=== PATIENT | female | born 1995 | race Caucasian/White ===

== ENCOUNTER 2023-07-03 10:53 | Outpatient (OUT) | payer OTHER, SELFPAY ==
[2023-07-03 11:50] LABS: HCG Quantitative 632 mIU/mL
== END 2023-07-03 10:54 | disposition home or self-care (01) ==
PROVIDERS: Visit Provider Obstetrics & Gynecology
DX: N92.6 Irregular menstruation, unspecified (principal)
CPT/HCPCS: 36415; 84702

== ENCOUNTER 2023-07-05 11:01 | Outpatient (OUT) | payer OTHER, SELFPAY ==
[2023-07-05 12:24] LABS: HCG Quantitative 1725 mIU/mL
== END 2023-07-05 11:02 | disposition home or self-care (01) ==
LOC: LAB 11:01
PROVIDERS: Visit Provider Obstetrics & Gynecology
DX: N92.6 Irregular menstruation, unspecified (principal)
CPT/HCPCS: 36415; 84702

== ENCOUNTER 2023-07-31 13:58 | Outpatient (OUT) | payer OTHER, SELFPAY ==
--- NOTE | 2023-07-31 14:01 | US_ITS ---
[address] [address] Patient Name: ADRY LEVY MRN: [id number] date: 1995 Sex: F Assigned Patient Location: [facility] Current Patient Location: [facility] Accession/Order Number: [id number] Exam Date: 07/31/2023 14:01 Report Date: 07/31/2023 14:58 At the request of: RICKY PHAM Procedure: US OB transvaginal EXAMINATION: US OB transvaginal HISTORY: MISSED MENSES COMPARISON: No relevant comparison available. FINDINGS: Transvaginal images Clark intrauterine gestation Gestational sac: 3.3 cm, 9 weeks CRL: 2.07 cm, 8 weeks 5 days Yolk sac: 4.2 mm Heart rate: 173 beats minute Cervix: Closed, 5.5 cm Uterus is normal, anteverted, anteflexed The ovaries are normal. Right corpus luteal cyst Clinical age: 8 weeks 3 days Clinical YE: 03/08/2024 Ultrasound age: 8 weeks 5 days Ultrasound YE: 02/29/2024 US/US OB transvaginal IMPRESSION: Viable clark intrauterine gestation measuring 8 weeks 5 days Electronically authenticated by: EULOGIO BARCLAY Date: 07/31/2023 14:58
== END 2023-07-31 13:59 | disposition home or self-care (01) ==
LOC: NOMS 13:58
PROVIDERS: Visit Provider Obstetrics & Gynecology
DX: Z34.91 Encounter for supervision of normal pregnancy, unspecified, first trimester (principal); Z3A.08 8 weeks gestation of pregnancy; N92.6 Irregular menstruation, unspecified
CPT/HCPCS: 76817

== ENCOUNTER 2023-08-21 10:58 | Outpatient (OUT) | payer OTHER, SELFPAY ==
[2023-08-21 11:33] LABS: Basophils Absolute Auto 0.1 10^3/uL (0.0-0.1); Basophils Percent Auto 0.9 % (0.2-2.0); Eosinophils Absolute Auto 0.2 10^3/uL (0.0-0.7); Eosinophils Percent Auto 1.9 % (0.9-7.0); Hematocrit 38.2 % (36.0-48.0); Hemoglobin 13.1 g/dL (12.0-16.0); Immature Granulocytes Abs Auto 0.07 10^3/uL (0.00-0.03); Immature Granulocytes Pct Auto 0.7 % (0.0-0.5); Lymphocytes Absolute Auto 1.8 10^3/uL (1.2-3.8); Lymphocytes Percent Auto 19.4 % (20.5-60.0); Mean Corpuscular HGB Conc 34.3 g/dL (29.9-35.2); Mean Corpuscular Hemoglobin 29.5 pg (26.7-34.0); Mean Platelet Volume 10.5 fL (9.5-13.5); Monocytes Absolute Auto 0.7 10^3/uL (0.3-0.8); Monocytes Percent Auto 7.8 % (1.7-12.0); Neutrophils Absolute Auto 6.5 10^3/uL (1.4-6.5); Neutrophils Percent Auto 69.3 % (43.0-75.0); Platelet Count 194 10^3/uL (150-450); Red Blood Count 4.44 10^6/uL (4.20-5.40); Red Cell Distribution Width 12.6 % (11.0-15.0); White Blood Count 9.4 10^3/uL (4.0-11.0)
[2023-08-21 11:45] LABS: Estimated Average Glucose 100 mg/dL; Glycohemoglobin A1C 5.1 % (4.5-6.2)
[2023-08-21 14:17] LABS: Thyroid Stimulating Hormone 2.881 uIU/mL (0.358-3.740)
[2023-08-22 06:10] LABS: HBsAg Screen Negative (Negative); HCV Ab Non Reactive (Non Reactive); HIV Ab/p24 Ag Screen Non Reactive (Non Reactive); Rubella Antibodies, IgG 2.07 index (Immune >0.99)
[2023-08-22 11:10] LABS: Rapid Plasma Reagin, Quant Non Reactive titer (NonRea<1:1)
== END 2023-08-21 10:59 | disposition home or self-care (01) ==
LOC: LAB 11:00
PROVIDERS: Visit Provider Obstetrics & Gynecology
DX: N92.6 Irregular menstruation, unspecified (principal); E07.9 Disorder of thyroid, unspecified
CPT/HCPCS: 36415; 83036; 84443; 85025; 86592; 86762; 86803; 86850; 86900; 86901; 87086; 87340; 87389

== ENCOUNTER 2023-09-30 19:22 | Outpatient (REF) | payer OTHER, SELFPAY ==
--- OUTSIDE RECORDS SUMMARY | 2023-09-30 19:28 | XMS_ITS | CCD ---
Author Organization [facility] Care Team Providers Care Delivery Analyst Name Role Phone Unavailable Unavailable Unavailable Herve Will MD Primary Care Provider Chepe Peraza MD Unavailable Herve Will MD Primary Care Unavail able Cristian DORADO, Jake Og Attending UnavailHerve Chiang MD Primary Care Unavail swathi Foster MD, Jake Og Attending Unavailfred Foster MD, Jake Og Attending UnavailHerve Chiang MD Primary Care Unavail able Herve Will MD Primary Care Provider Chepe Peraza MD Unavailable [phone] Herve Will MD Primary Care Provider HERVE WILL Attending Unavailable Chepe Peraza MD Unavailable DARRYN DOW Primary Care Unavailable DU PHILIP Referring Unavailable GEOVANNY PANCHAL Attending Unavailable RICKY PHAM Attending Unavailable LATRICE GLOVER Attending Unavailable DEONTEEMAKER HERVE J Primary Care Unavailable REGAN SCHAEFFER Referring Unavailable SHOEMAKER, HERVE J Primary Care Unavailable SELF, SELF Referring Unavailable BELLE JOSE Admitting Unavailable BELLE JOSE Attending Unavailable SELF, SELF Referring Unavailable EMILE ARMAS Attending Unavailable SHOEMAKER, HERVE J Primary Care Unavailable REGAN SCHAEFFER Attending Unavailable REGAN SCHAEFFER Referring Unavailable SHOEMAKER, HERVE J Primary Care Unavailable SHOEMAKER, HERVE J Primary Care Unavailable REGAN SCHAEFFER Referring Unavailable EMILE ARMAS Attending Unavailable EMILE ARMAS Attending Unavailable SELF, SELF Referring Unavailable SHOEMAKER HERVE J Primary Care Unavailable REGAN SCHAEFFER Referring Unavailable EMILE ARMAS Attending Unavailable HERVE WILL Primary Care Unavailable HERVE WILL Attending Unavailable HERVE WILL Referring Unavailable HERVE WILL Primary Care Unavailable Allergies Allergy Classification Reported Allergen(s) Allergy Type Date of Onset Reaction(s) Facility (11 sources) Amoxicillin; Translations: [amoxicillin] Drug Allergy 8 [facility] Work Phone: (5 sources) Clarithromycin; Translations: [clarithromycin] Drug Allergy 8 [facility] Work Phone: (11 sources) Clindamycin; Translations: [clindamycin] Drug Allergy 8 [facility] Work Phone: (11 sources) Doxycycline; Translations: [doxycycline] Drug Allergy 8 [facility] Work Phone: (6 sources) Clarithromycin Propensity to adverse reactions to drug 8 [facility] Work Phone: Medications Current Medications Medication Drug Class(es) Dates Sig (Normalized) Sig (Original) alpha-tocopherol acetate 30 unt / ascorbic acid 100 mg / beta carotene 1000 unt / calcium carbonate 200 mg / calcium pantothenate 7 mg / cholecalciferol 400 unt / docusate sodium 25 mg / ferrous fumarate 29 mg / folic acid 1 mg / niacinamide 15 mg / pyridoxine hydrochloride 20 mg / riboflavin 3 mg / thiamine 3 mg / vitamin b12 0.012 mg / zinc oxide 20 mg oral tablet (6 sources) Vitamin B12, Vitamin D, Vitamin C Start: 11-20-2022 take 1 tablet by mouth once daily Vit-DSS-Fe Fum-FA ( 19) tablet Take 1 tablet by mouth daily. 90 tablet 3 11/20/2022 Active ethinyl estradiol 0.035 mg / norgestimate 0.25 mg oral tablet (8 sources) Progestin, Estrogen take 1 tablet by mouth at bedtime norgestimate-ethinyl estradiol (Sprintec 28) 0.25-35 MG-MCG tablet Take 1 tablet by mouth at bedtime. Active lidocaine viscous 80 mL, diphenhydrAMINE (BENADRYL) 80 mL, alum/mag hydrox.-simethicone 80 mL mouthwash (8 sources) Start: 05-22-2021 take 15 mL transmucosal route every six hours as needed lidocaine viscous 80 mL, diphenhydrAMINE (BENADRYL) 80 mL, alum/mag hydrox.-simethicone 80 mL mouthwash Swish and swallow 15 mL every 6 hours as needed. 1 Bottle 05/22/2021 Active Start: 05-22-2021 take 15 mL transmuco ashia route every six hours as needed lidocaine viscous 80 mL, diphenhydrAMINE (BENADRYL) 80 mL, alum/mag hydrox.-simethicone 80 mL mouthwash Swish and swallow 15 mL every 6 hours as needed. 1 Bottle 0 05/22/2021 Active lidocaine viscous-Alum & Mag Icznrurve-Kbmxqh-gsfqkbqqueSMVTJ oral mouthwash (8 sources) Start: 05-22-2021 take 15 mL by mouth every six hours as needed lidocaine viscous-Alum & Mag Lltaxfliq-Pvygzv-mkulpiftwnYPSVY oral mouthwash Swish and swallow 15mL by mouth every 6 hours as needed. 240 mL 05/22/2021 Active Start: 05-22-2021 take 15 mL by mouth every six hours as needed lidocaine viscous-Alum & Mag Xyxmfkybj-Yhkpgh-azdwluupnzQQEMU oral mouthwash Swish and swallow 15mL by mouth every 6 hours as needed. 240 mL 0 05/22/2021 Active nystatin 680239 unt/ml oral suspension (8 sources) Polyene Antifungal Start: 05-16-2021 take 10 mL by mouth four times daily nystatin 313249 UNIT/ML oral suspension Swish and swallow 10 mL 4 times daily. 280 mL 05/16/2021 Active ondansetron 4 mg disintegrating oral tablet (8 sources) Serotonin-3 Receptor Antagonist Start: 05-10-2021 take 1 tablet by mouth every eight hours as needed ondansetron 4 MG Tab Dispersible tablet Dissolve 1 tablet by mouth every 8 hours as needed for Nausea / Vomiting. 15 tablet 05/10/2021 Active oxyCODONE hydrochloride 5 mg oral tablet (6 sources) Opioid Agonist Start: 05-22-2021 take 1 tablet by mouth every four hours as needed oxyCODONE 5 MG tablet Indications: Postoperative pain Take 1 tablet by mouth every 4 hours as needed for up to 7 days. 20 tablet 05/22/2021 Active Completed/Discontinued Medications Medication Drug Class(es) Dates Sig (Normalized) Sig (Original) Barium Sulfate (VARIBAR THIN LIQUID) 40 % 50 mL (1 source) Start: 01-09-2023 End: 01-09-2023 Barium Sulfate (VARIBAR THIN LIQUID) 40 % 50 mL iohexol (OMNIPAQUE) 350 MG/ML injection 1-171 mL (1 source) Start: 12-24-2022 End: 12-24-2022 iohexol (OMNIPAQUE) 350 MG/ML injection 1-171 mL 20 ml sodium chloride 9 mg/ml injection (1 source) Start: 12-24-2022 End: 12-24-2022 Sodium chloride (PF) 0.9 % injection 1-100 mL Problems Active Problems Problem Classification Problem Date Documented Date Episodic/Chronic Acute and chronic tonsillitis (8 sources) Chronic tonsillitis; Translations: [Chronic tonsillitis] Onset: 03-19-2021 03-19-2021 Chronic Administrative/social admission (2 sources) Encounter for pre-employment examination; Translations: [Encounter for pre-employment examination] Onset: 06-20-2023 Episodic Asthma (6 sources) Asthma; Translations: [Unspecified asthma, uncomplicated] Onset: 11-20-2022 11-20-2022 Chronic Cardiac and circulatory congenital anomalies (3 sources) Bicuspid aortic valve; Translations: [Congenital insufficiency of aortic valve] Onset: 11-20-2022 11-20-2022 Chronic Malaise and fatigue (1 source) Fatigue; Translations: [Other fatigue] Episodic Other aftercare (1 source) Surgical follow-up; Translations: [Encounter for follow-up examination after completed treatment for conditions other than malignant neoplasm] Episodic Thyroid disorders (12 sources) Thyroid nodule; Translations: [Nontoxic single thyroid nodule] Onset: 11-20-2022 11-20-2022 Chronic Past or Other Problems Problem Classification Problem Date Documented Da te Episodic/Chronic Biliary tract disease (8 sources) Chronic cholecystitis; Translations: [Chronic cholecystitis] Onset: 04-05-2019 04-06-2019 Episodic Contraceptive and procreative management (3 sources) Patient encounter status; Translations: [Encounter for other general counseling and advice on procreation] Onset: 11-20-2022 11-20-2022 Episodic Lymphadenitis (6 sources) Generalized enlarged lymph nodes; Translations: [Lymphadenopathy] Onset: 01-09-2023 12-24-2022 Episodic Mood disorders (5 sources) Mood disorders Onset: 12-24-2022 12-24-2022 Other gastrointestinal disorders (2 sources) Dysphagia, pharyngeal phase; Translations: [Dysphagia, pharyngeal phase] Onset: 01-09-2023 Episodic Results Test Name Value Interpretation Reference Range Facility [facility] US SOFT TISSUE HEAD & NE CK REAL TIME IMGE [facility] 09-23-2023 Radiology Study observation (narrative) [facility] US SOFT TISSUE HEAD & NE CK REAL TIME IMGE [facility] 09-22-2023 Andres Torres MD 09/23/2023 6:28 PM Ms. Cardenas was seen and examined with Dr. Glover, I independently verified the findings on US and agree with the documented report - thyroid ultrasound report appears in the notes tab. [facility] US Unspecified body regionOr dered By: Unassigned Pacs on 09-22-2023 [facility] Work Phone: US Unspecified body regionon 09-22-2023 Radiology Study observation (narrative) [facility] 36on 07-04-2023 36 Created in error Normal [facility] 36 Scheduled an appointment October 06 at 8:30am. [facility] 36 If this patient schedules a follow-up appointment I would like to at least see her anywhere between 18 and 20 weeks gestation for a visit and to go over how she is doing with the . We would then schedule her at 24 weeks for her echocardiogram and the echocardiogram so do what ever is necessary to help her arrange this based on her estimated gestational age. I called her and left her message as well. [facility] 36on 07-03-2023 36 Patient is newly (4wks) and is currently scheduled in August for her yearly visit.. She is asking if she needs to reschedule to do the 20-24 wk gestational testing. PH: [phone] Normal [facility] Telephoneon 07-03-2023 Telephone [phone] Lisa Peña 1995 F Date Provider Department Center 07/03/2023 [id number], CRYSTAL RPW PED [employer] No family history on file Normal [facility] VZ Immunityon 06-23-2023 VZ Immunity 3.84 Normal >1.09 [facility] Comment on above: Result Comment: Interpretation: IMMUNE Reference Range: <0.91 Not Immune 0.91-1.09 Equivocal >1.09 Immune Performed By: #### V ZI #### [facility] [employer] [address] [place] [address] Software Program Manager: Bear Mejias MD US THYROIDon 06-03-2023 US THYROID EXAM: US THYROID, 06/02/2023 16:01 PM CLINICAL INDICATIONS: thyroid nodule Outside Order;Evaluate and treat;US Thyroid; E04.1:Thyroid nodule COMPARISON: Compared to prior study dated 06/01/2018 TECHNIQUE: Real-time, grayscale ultrasound evaluation of the neck was performed in transverse and longitudinal orientations using a high-resolution linear array transducer. Color Doppler was utilized to assess vascular flow. FINDINGS: Background thyroid parenchyma is homogeneous . The right lobe measures 1.4 x 0.5 x 0.7 cm and the left lobe measures 5.4 x 1.5 x 1.7 cm. The isthmus is not well-visualized. Thyroid nodule(s) as follows: Nodule # 1 : Left inferior Size: 1.3 x 0.9 x 0.5 cm, previously 0.7 x 0.3 x 0.4 Composition: Solid or almost completely solid (2 points) Echogenicity: Hyperechoic or isoechoic (1 point) Shape: Lvtyb-tpjw-iozs (0 points) Margin: Smooth (0 points) Echogenic Foci: None or large comet-tail artifacts (0 points) TI-RADS* score: TR3 (3 pts)- Mildly Suspicious. No FNA or recommended imaging follow-up IMPRESSION: The right hepatic lobe is atrophic. Again seen is a left inferior thyroid nodule which has slowly grown since 2019. Nodule does not meet size criteria for tissue sampling. * Lesions are classified using ACR TI-RADS. (JACR July 2016) Normal [facility] FREE T4on 05-23-2023 Free T4 [Mass/Vol] 1.0 ng/dL Normal 0.9-1.8 [facility] Comment on above: Order Comment: Locat ion: Performed By: #### L [id number], [id number] #### MASTER SAUER ([id number]) [facility] (COP) [address], [address] [place] [id number] TSHon 05-23-2023 TSH 2.599 MIU/mL Normal 0.550-4.780 [facility] Comment on above: Order Comment: Locat ion: Performed By: #### L [id number], [id number] #### MASTER SAUER ([id number]) [facility] ([facility]) [address], [address] [place] [address] RF videography Hypopharynx a nd Esophagus Views W liquid and paste contrast PO during swallowingon 01-09-2023 IMPRESSION: 1. No laryngeal vestibule penetration or aspiration with any consistency. 2. Please see the speech language pathologist report for further details and dietary recommendations. OLOGY EXAM: XR FLUORO MODIFIED BARIUM SWALLOW-ENT ONLY, 01/09/2023 09:25 AM COMPARISON: No prior studies available for comparison. CLINICAL INDICATIONS: dysphagia R59.1:Lymphadenopat hy TECHNIQUE: Various consistencies of barium including thin liquids, nectar, pudding and cracker were given by mouth using video fluoroscopy, in conjunction with the speech language pathologist. TOTAL FLUORO TIME: 1.3 min FINDINGS: Pharyngeal Phase: No laryngeal penetration or aspiration was identified with any consistencies. Mild residue was noted in the pharyngeal structures especially in the vallecula more prominent with the pudding and solid consistencies. Mild reduced pharyngeal contraction was visualized. Cervical Phase: Functional. The prevertebral soft tissues are unremarkable as well as the cervical spine. Esophageal Follow Through: An AP screening view of the esophagus demonstrates clearance of most of the contrast. RADIOLOGY Gisele Hardy MD - 01/09/2023 EXAM: XR FLUORO MODIFIED BARIUM SWALLOW-ENT ONLY, 01/09/2023 09:25 AM COMPARISON: No prior studies available for comparison. CLINICAL INDICATIONS: dysphagia R59.1:Lymphadenopat hy TECHNIQUE: Various consistencies of barium including thin liquids, nectar, pudding and cracker were given by mouth using video fluoroscopy, in conjunction with the speech language pathologist. TOTAL FLUORO TIME: 1.3 min FINDINGS: Pharyngeal Phase: No laryngeal penetration or aspiration was identified with any consistencies. Mild residue was noted in the pharyngeal structures especially in the vallecula more prominent with the pudding and solid consistencies. Mild reduced pharyngeal contraction was visualized. Cervical Phase: Functional. The prevertebral soft tissues are unremarkable as well as the cervical spine. Esophageal Follow Through: An AP screening view of the esophagus demonstrates clearance of most of the contrast. IMPRESSION IMPRESSION: 1. No laryngeal vestibule penetration or aspiration with any consistency. 2. Please see the speech language pathologist report for further details and dietary recommendations. [facility] Radiology Study observation (narrative) [facility] RF videography Hypopharynx a nd Esophagus Views W liquid and paste contrast PO during swallowingOrdered By: Gisele Hardy on 01-09-2023 [facility] Work Phone: XR FLUORO MODIFIED BARIUM SW ALLOW-ENT ONLYon 01-09-2023 XR FLUORO MODIFIED BARIUM SWALLOW-ENT ONLY EXAM: XR FLUORO MODIFIED BARIUM SWALLOW-ENT ONLY, 01/09/2023 09:25 AM COMPARISON: No prior studies available for comparison. CLINICAL INDICATIONS: dysphagia R59.1:Lymphadenopat hy TECHNIQUE: Various consistencies of barium including thin liquids, nectar, pudding and cracker were given by mouth using video fluoroscopy, in conjunction with the speech language pathologist. TOTAL FLUORO TIME: 1.3 min FINDINGS: Pharyngeal Phase: No laryngeal penetration or aspiration was identified with any consistencies. Mild residue was noted in the pharyngeal structures especially in the vallecula more prominent with the pudding and solid consistencies. Mild reduced pharyngeal contraction was visualized. Cervical Phase: Functional. The prevertebral soft tissues are unremarkable as well as the cervical spine. Esophageal Follow Through: An AP screening view of the esophagus demonstrates clearance of most of the contrast. IMPRESSION: 1. No laryngeal vestibule penetration or aspiration with any consistency. 2. Please see the speech language pathologist report for further details and dietary recommendations. 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 No significant interval change in size of a midline ovoid hyperdense lesion at the tongue base, which likely represents lingual thyroid/ectopic thyroid tissue. A known previously characterized nodule in the left thyroid lobe is not detectable on this CT and is better depicted on the ultrasound from 06/01/2018. A mildly prominent 9 x 8 mm right cervical station 2A lymph node is unchanged dating back to 05/01/2018 (2:65). No evidence of pathologic lymphadenopathy by standard CT size criteria. Unremarkable parotid and submandibular glands. The pharyngeal and laryngeal airways are intact. The fat planes of the suprahyoid neck are intact. The imaged intracranial contents are unremarkable. Unremarkable orbits. The major cervical vessels enhance normally. No destructive osseous lesion. No acute findings in the imaged lung apices. IMPRESSION: A mildly prominent 9 x 8 mm right cervical station 2A lymph node is unchanged dating back to 05/01/2018. No evidence of pathologic lymphadenopathy by standard CT size criteria. 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 A known previously characterized nodule in the left thyroid lobe is not detectable on this CT, likely due to limitations of CT modality, and is better demonstrated on the thyroid ultrasound from 06/01/2018. Consider repeat ultrasound for further evaluation as clinically warranted. Aleks Mena M.D. This report has been electronically signed and verified by the Radiologist whose name is printed above. / This report contains privileged and confidential information and is intended solely for the use of the individual or entity to which it is addressed. If you are not the intended recipient of this report, you are hereby notified that any copying, distribution, dissemination or action taken in relation to the contents of this report is strictly prohibited and may be unlawful. If you have received this report in error, please notify the sender immediately at [phone] and permanently delete the original report and destroy any copies or printouts. Normal [facility] Dietician Cytology Reporton 2022 Dietician Cytology Report Clinical Information Specimen Collection Date: 05/21/2022 LMP: 04/27/2022 Type of specimen: Cervical/endocervic al HPV testing ordered only if ASCUS Pap. Purpose of smear: Regular periodic exam/screening Pap GY Specimen A Liquid Prep Pap Smear, Reflex if ASCUS Adequacy Alpha Response SAT ANATOMICPATHOLOGY Endocervical Alpha Response EC/TZONE + ANATOMICPATHOLOGY Statement of Adequacy Satisfactory for Evaluation. Transformation Zone Present. Diagnosis Alpha Response GY NILM ANATOMICPATHOLOGY Diagnosis NEGATIVE FOR INTRAEPITHELIAL LESION OR MALIGNANCY. Completed by: KATIE Blair (ASCP) (Electronically signed by) 05/28/22 14:16 EDT GY Disclaimer Interp The PAP smear is a screening test with an inherent, but low, probability of error. A negative report indicates a low probability of significant cervical pathology. Your patient should be reminded to consult you immediately if she experiences new symptoms and to continue having regular PAP smears in the future. 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 Patient reports some pain with menses, controlled with Ibuprofen. Reports overall is doing well. History of Present Illness Pelvic Pain: No Painful Sex: No Abnormal Vaginal Discharge: No Abnormal Vaginal Bleeding: No Vaginal Dryness: No Vaginal Itch: No Vaginal Burning: No Vaginal Odor: No Hot Flashes: No Night Sweats: No Breast Lump: No Breast Pain: No Contraception Type: Withdrawal Age Menses Started: 12 Menstrual Periods: Yes Last Menstrual Period: 04/27/22 Periods Are: Mod Days Between Periods: 27-31 days Menstrual Flow Days: 7 Pain With Period: Yes Flow Start Pain: Yes Periods Regular: Yes Pass Clots: Yes Miss School/Work Due to Periods: No Sexually Active: No Comments 05/14/22 15:33:00 Pain with menses rated a 6 but ibuprofen seems to take care of that. Patient is contemplating soon after getting but does have a history of bicuspid aortic valve and the last time she saw her mortgage professional thought there might have been some dilation of the aortic root and to talk to him when she is thinking about getting . Review of Systems Head Migraines: No Headaches: No Eyes Corrective Lenses: Contact lenses Blurred vision: Contact lenses Ears, Nose, Throat Congestion: No Vertigo: No Sore throat: No Nasal drainage: No Cardio Respiratory Peripheral edema: No Heart Irregularity: No Chest Pain: No Shortness of Breath: No Gastrointestinal Bloating: No Reflux/heartburn: No Abdominal Pain: No Change in bowel habits: No Urinary Urinary Incontinence: No Urinary frequency: No Nocturia: No Urgency: No Painful urination: No Musculoskeletal Back pain: No Muscle aches: No Joint pain: No Integumentary Lesions: No Moles: No Acne: No Hair changes: No Psycho-Social Sleep Problems: No Anxiety: No Suicidal Ideation: No Homicidal Ideation: No Depression: No Hematologic/Lymphat ic Lymphadenopathy: No Thromboembolism: No Bruising: No Bleeding tendencies: No Endocrine Abnormal weight gain: No Abnormal weight loss: No Fatigue: No Additional Details Pain Present Physical Exam Vitals & Measurements Systolic Blood Pressure : 102 mmHg Diastolic Blood Pressure : 76 mmHg BP Position/Location : Sitting, Left arm Weight Measured : 61.8 kg(Converted to: 136 lb 4 oz, 136.246 lb) Height/Length Measured : 164.1 cm(Converted to: 5 ft 5 in, 5.38 ft, 64.61 in) Weight Dosing : 61.8 kg(Converted to: 136 lb 4 oz, 136.246 lb) BSA Measured : 1.68 m2 Body Mass Index Measured : 22.95 kg/m2 General: [Alert and oriented, well nourished, no acute distress]. Eye: [PERRL, EOMI, normal conjuctiva]. HEENT: [Normocephalic,, normal hearing, no scleral icterus,]. Neck: [Supple, non-tender, , no lymphadenopathy]. Lungs: [Clear to auscultation non-labored respiration]. Heart: [Normal rate, regular rhythm, no murmur, gallop or edema]. Abdomen: [Soft, non-tender, non-distended,, no masses]. Musculoskeletal: [Normal range of motion and strength, no tenderness or swelling]. Skin: [Skin is warm, dry and pink, no rashes or lesions]. Neurologic: [Awake, alert, and oriented X3, CN II-XII intact grossly]. Psychiatric: [Cooperative, appropriate mood and affect]. Breast exam: [No fibrocystic changes noted bilaterally, no masses, tenderness, skin changes or nipple discharge]. External Genitalia: [Normal urethral meatus, no lesions, vulvar skin intact]. Genitourinary: [Normal vaginal mucosa, no lesions or abnormal discharge, cervix no lesions ulcerations or polyps seen. No cystocele or rectocele]. Bimanual exam: [Mobile nontender uterus within normal limits in size. No adnexal tenderness or masses]. Additional Vitals No qualifying data available. Assessment/Plan 1. Encounter for routine gynecological examination with Papanicolaou smear of cervix Return to office for Annual yearly, and as needed. Provider Comments Continue annual exam monthly breast self exams We will send patient for preconceptual counseling with [facility] because of her cardiac abnormality Follow-up 1 year and as needed Problem List/Past Medical History Ongoing Asthma Bicuspid aortic valve Encounter for routine gynecological examination Encounter for routine gynecological examination with Papanicolaou smear of cervix Follow up Oral contraceptive use Pelvic pain Historical Chickenpox Procedure/Surgical History mole excisions Upper endoscopy wisdom teeth excision REMOVAL OF GALLBLADDER (04/06/2019) Tonsillectomy (04/12/2021) Medications No active medications Allergies amoxicillin (rash) clarithromycin (rash) clindamycin (sore throat, acid reflux) doxycycline (acid reflux, sore throat) Social History Alcohol Current, Wine, 1-2 times per month Substance Abuse Denies All Tobacco Never (less than 100 in lifetime) Use:. Family History Epilepsy, not intractable, w/o (more content not included)... Normal [facility] Culture, Urineon 08-04-2020 RPT Microbiology results Abnormal [facility] Comment on above: Order Comment: Items in this order include: Culture, Urine Testing Performed By: [facility] [address] [place] [address]. [place] [address] Dr. Master Sauer, Software Program Manager Result Comment: [place] Count: 10,000-25,000 CFU/ML Final Result: Escherichia coli (Isolate 1) Sensitivity Analysis Isolate 1 Amoxicillin/Clavulanic Aci 16 I Ampicillin >=32 R Ampicillin/Sulbactam >=32 R Cefazolin 16 I Cefepime <=1 S Ceftazidime <=1 S Ceftriaxone <=1 S Ciprofloxacin <=0.25 S Ertapenem <=0.5 S ESBL Neg - Gentamicin <=1 S Imipenem <=0.25 S Levofloxacin <=0.12 S Nitrofurantoin <=16 S Piperacillin/Tazobactam <=4 S Tobramycin <=1 S Trimethoprim/Sulfamethoxaz >=320 R Performed By: #### C 734 #### [facility] [address] [place] [address] [address] [place] [address] Culture, Urineon 03-14-2020 RPT Microbiology results Abnormal [facility] Comment on above: Order Comment: Items in this order include: Culture, Urine Testing Performed By: [facility] [address] [place] [address]. [place] [address] Dr. Shaunna Cummins, Software Program Manager Result Comment: [place] Count: >100,000 CFU/ML Final Result: Escherichia coli (Isolate 1) Sensitivity Analysis Isolate 1 Amoxicillin/Clavulanic Aci >=32 R Ampicillin >=32 R Ampicillin/Sulbactam >=32 R Cefazolin 8 S Cefepime <=1 S Ceftazidime <=1 S Ceftriaxone <=1 S Ciprofloxacin <=0.25 S Ertapenem <=0.5 S ESBL Neg - Gentamicin <=1 S Imipenem <=0.25 S Levofloxacin <=0.12 S Nitrofurantoin <=16 S Piperacillin/Tazobactam <=4 S Tobramycin <=1 S Trimethoprim/Sulfamethoxaz >=320 R Performed By: #### C 734 #### [facility] [address] [facility] [address] [place] [address] Culture, Urineon 12-14-2019 RPT Microbiology results [facility]normal [facility] Comment on above: Order Comment: Items in this order include: Culture, Urine Testing Performed By: [facility] [address] [facility] [place] [address] Dr. Shaunna Cummins, Software Program Manager Result Comment: [place] Count: 50,000-75,000 CFU/ML Final Result: Escherichia coli (Isolate 1) Sensitivity Analysis Isolate 1 Amoxicillin/Clavulanic Aci 16 I Ampicillin >=32 R Ampicillin/Sulbactam >=32 R Cefazolin 16 I Cefepime <=1 S Ceftazidime <=1 S Ceftriaxone <=1 S Ciprofloxacin <=0.25 S Ertapenem <=0.5 S ESBL Neg - Gentamicin <=1 S Imipenem <=0.25 S Levofloxacin <=0.12 S Nitrofurantoin <=16 S Piperacillin/Tazobactam 64 I Tobramycin <=1 S Trimethoprim/Sulfamethoxaz >=320 R Performed By: #### C 734 #### [facility] [address] [facility] [address] [place] [address] Vital Signs Date Time Vital Sign Value Performing Clinician Jonathan parker 09-22-2023 13:37-0400 Body height 162.6 cm Latrice Glover MD Work Phone: [facility] 09-22-2023 13:37-0400 Body mass index (BMI) [Ratio] 25.4 kg/m2 Latrice Glover MD Work Phone: [facility] 09-22-2023 13:37-0400 Body temperature 97.3 [degF] Latrice Glover MD Work Phone: [facility] 09-22-2023 13:37-0400 Body weight 67.13 kg Latrice Glover MD Work Phone: [facility] 09-22-2023 13:37-0400 Diastolic blood pressure 62 mm[Hg] Latrice Glover MD Work Phone: [facility] 09-22-2023 13:37-0400 Systolic blood pressure 114 mm[Hg] Latrice Glover MD Work Phone: [facility] 12-24-2022 16:30-0400 Body height 162.6 cm Regan Edinson WATCH DIAL MAKER-CHIEF CLINICAL OFFICER Work Phone: [facility] 12-24-2022 16:30-0400 Body mass index (BMI) [Ratio] 23.17 kg/m2 Regan Edinson WATCH DIAL MAKER-CHIEF CLINICAL OFFICER Work Phone: [facility] 12-24-2022 16:30-0400 Body weight 61.24 kg Regan Schaeffer WATCH DIAL MAKER-CHIEF CLINICAL OFFICER Work Phone: [facility] 12-24-2022 16:30-0400 Diastolic blood pressure 68 mm[Hg] Regan Edinson WATCH DIAL MAKER-CHIEF CLINICAL OFFICER Work Phone: [facility] 12-24-2022 16:30-0400 Heart rate 71 /min Regan Edinson WATCH DIAL MAKER-CHIEF CLINICAL OFFICER Work Phone: [facility] 12-24-2022 16:30-0400 Systolic blood pressure 108 mm[Hg] Regan Schaeffer WATCH DIAL MAKER-CHIEF CLINICAL OFFICER Work Phone: [facility] 12-24-2022 11:37-0400 Body mass index (BMI) [Ratio] 23.22 kg/m2 Emile Armas MD Work Phone: [facility] 12-24-2022 11:37-0400 Body temperature 98.2 [degF] Emile Armas MD Work Phone: [facility] 12-24-2022 11:37-0400 Body weight 61.37 kg Emile Armas MD Work Phone: [facility] 12-24-2022 11:37-0400 Diastolic blood pressure 78 mm[Hg] Emile Armas MD Work Phone: [facility] 12-24-2022 11:37-0400 Heart rate 73 /min Emile Armas MD Work Phone: [facility] 12-24-2022 11:37-0400 Respiratory rate 16 /min Emile Armas MD Work Phone: [facility] 12-24-2022 11:37-0400 SaO2% (BldA) [Mass fraction] 99 % Emile Armas MD Work Phone: [facility] 12-24-2022 11:37-0400 Systolic blood pressure 123 mm[Hg] Emile Armas MD Work Phone: [facility] Encounters Encounter Date Encounter Type Care Provider Facility Start: 09-22-2023 End: 09-22-2023 Office outpatient new 45 minutes Latrice Glover MD Work Phone: [facility] Comment on above: Thyroid nodule (Prim subhash Dx) Start: 09-22-2023 ambulatory LATRICE GLOVER Facilit y:[facility] Start: 09-01-2023 End: 09-01-2023 ambulatory RICKY PHAM Not Available Start: 07-31-2023 End: 07-31-2023 ambulatory GEOVANNY PANCHAL Not Available Start: 06-20-2023 End: 06-21-2023 [facility] Start: 06-02-2023 ambulatory HERVE Benavides ility:[facility] Start: 06-02-2023 End: 06-02-2023 Subsequent hospital visit by physician Herve Will MD Work Phone: Department of Radiology Comment on above: Arrived Start: 05-27-2023 End: 05-27-2023 ambulatory GEOVANNY PANCHAL Not Available Start: 05-23-2023 End: 05-23-2023 ambulatory HERVE WILL [facility] Start: 01-09-2023 End: 01-09-2023 Subsequent hospital visit by physician Emile Armas MD Work Phone: Department of Radiology Comment on above: Arrived Start: 01-09-2023 ambulatory HERVE Benavides ility:[facility] Start: 12-24-2022 End: 12-24-2022 Subsequent hospital visit by physician Regan Schaeffer WATCH DIAL MAKER-CHIEF CLINICAL OFFICER Work Phone: [facility] [place] Comment on above: Arrived Start: 12-24-2022 ambulatory REGAN SCHAEFFER Facilit y:[facility] Start: 12-24-2022 End: 12-24-2022 Office outpatient new 45 minutes Emile Armas MD Work Phone: Department of Otolaryngology Comment on above: Lymphadenopathy (Alicia brook Dx) Start: 12-24-2022 ambulatory SELF SELF Facility:[facility] Start: 11-20-2022 End: 11-20-2022 Office consultation new/estab patient 60 min Belel Jose DO Work Phone: [facility] [place] Comment on above: Encounter for precon ception consultation (Primary Dx); Bicuspid aortic valve Start: 11-20-2022 ambulatory HERVE Benavides ility:[facility] Start: 08-15-2022 End: 08-15-2022 Subsequent hospital visit by physician Chepe Peraza MD Work Phone: Cardiovascular Imaging [facility] Comment on above: Canceled (Cancel Ligia son Not Listed - Please provide detailed information) Start: 05-21-2022 End: 05-22-2022 ambulatory Jake Foster MD Facility:[facility] Start: 06-05-2021 End: 06-05-2021 Postop follow up visit related to original px Charlotte Cárdenas MD Work Phone: [facility] [place] Comment on above: Postop check (Primar y Dx) Start: 03-18-2018 End: 03-18-2018 Patient encounter procedure Darryn Dow Work Phone: [facility] Comment on above: Other fatigue; Lymph adenopathy of head and neck Procedures Date Procedure Procedure Detail Performing Clinician Start: 09-22-2023 US Unspecified body region Latrice Glover MD Work Phone: Start: 09-22-2023 Us soft tissue head & neck real time imge docm Latrice Glover MD Work Phone: Start: 01-09-2023 Radiologic exam esop hagus single contrast study Regan Schaeffer WATCH DIAL MAKER-CHIEF CLINICAL OFFICER Work Phone: Plan of Treatment Date Care Activity Detail Author Start: 11-09-2023 Influenza vaccination INFLUENZA VACC INE (#1) [facility] Start: 06-03-2023 ambulatory Ambulatory Facility:[facility] Start: 01-09-2023 End: 01-09-2023 ambulatory 01/09/2023 8:30 AM EDT Rehab Services Visit [facility] [address] [place] [id number] [facility] Start: 01-09-2023 End: 01-09-2023 Patient encounter procedure 01/09/2023 8:30 AM EDT Appointment Department of Radiology [address] [place] [id number] Department of Radiology Start: 12-24-2022 End: 12-25-2023 CT Neck W contrast IV [facility] Comment on above: Expected: 12/24/2022 , Expires: 12/25/2023 1 Occurrences starti ng 12/24/2022 until 12/24/2022 Start: 12-24-2022 End: 12-25-2023 RF videography Hypopharynx and Esophagus Views W liquid and paste contrast PO during swallowing XR FLUORO MODIFIED BARIUM SWALLOW-ENT ONLY Imaging Routine Lymphadenopathy Expected: 12/24/2022, Expires: 12/25/2023 [facility] Comment on above: Expected: 12/24/2022 , Expires: 12/25/2023 Start: 11-08-2022 COVID-19 VACCINE ( season) COVID-19 VACCINE () [facility] Start: 11-08-2022 Influenza vaccination [facility] Start: 11-08-2020 Influenza vaccination INFLUENZA VACC INE (#1) [facility] Start: 03-27-2018 End: 03-27-2018 Ambulatory 03/27/2018 Appointment Ultrasound Darryn Dow, CHIEF CLINICAL OFFICER [address] [place] [address] [phone] Department of Radiology Start: 03-18-2018 End: 03-18-2019 US scan of neck US NECK SOFT TISSUE Routine Other fatigue Lymphadenopathy of head and neck Expected: 03/18/2018, Expires: 03/18/2019 [facility] Work Phone: Comment on above: Expected: 03/18/2018 , Expires: 03/18/2019 Start: 11-08-2017 Influenza vaccination INFLUENZA VACC INE (#1) [facility] Work Phone: Start: 2015 Screening for malign ant neoplasm of cervix [facility] Start: 2013 Hepatitis B vaccination HEP B VACCINE (1 of 3 - 19+ 3-dose series) [facility] Start: 2013 Third diphtheria, tetanus and acellular pertussis (DTaP) vaccination TDAP (ADULT) [facility] Start: 02-04-2012 GONORRHEA SCREEN GONORRHEA SCREEN [facility] Work Phone: Start: 02-04-2012 Tetanus vaccination TETANUS [facility] Start: 2010 Screening for Chlamy kyle trachomatis CHLAMYDIA SCREEN [facility] Work Phone: Start: 2009 HIV screening HIV SCREENING DISCUSSI ON [facility] Start: 2007 HIV screening HIV SCREENING DISCUSSI ON [facility] Work Phone: Start: 03-13-2005 Tetanus vaccination TETANUS [facility] Start: 2005 Vaccination for jelly n papillomavirus HPV VACCINE ADOL (1 - Female 3-dose series) [facility] Work Phone: Start: 02-04-2000 PNEUMOCOCCAL VACCINE SERIES (1 of 2 - PCV) PNEUMOCOCCAL VACCINE SERIES (1 of 2 - PCV) [facility] Start: 1999 COVID-19 VACCINE (1) COVID-19 VACCIN E (1) [facility] Start: 1994 COVID-19 VACCINE (#1) COVID-19 VACCI NE (#1) [facility] Start: 1994 Hepatitis C antibody , confirmatory test HEPATITIS C VIRUS SCREENING [facility] Start: 1994 Hepatitis C screening HEPATITI S C VIRUS SCREENING [facility] Laryngoscopy flexibl e diagnostic [place] LARYNGOSCOPY FLEXIBLE DIAGNOSTIC [place] Charge Routine Lymphadenopathy Ordered: 12/24/2022 [facility] Comment on above: Ordered: 12/24/2022 End: 06-02-2023 US Thyroid gland [facility] Work Phone: Comment on above: 1 Occurrences starti ng 06/02/2023 until 06/02/2023 Immunizations Immunization Date Immunization Notes Care Provider Fa cilianthony 12-25-2022 influenza virus vaccine, unspecified formulation Latrice Glover MD Work Phone: [facility] 01-08-2016 influenza virus vaccine, unspecified formulation Charlotte Cárdenas MD Work Phone: [facility] Payers Date Payer Category Payer Unknown [id number] 2023 Private Health Insurance [employer] [id number] 2023-Present [address] [place] [address] [id number] 2023 Private Health Insurance [id number] 2021 Unknown [id number] 2020 Unknown [id number] 2020 Unknown [id number] 1994 Unknown [id number] [id number]. 196 1994 Unknown [id number] [id number]. 196 1994 Unknown [id number] 2.16.840.1.864712.3.579.2. 196 1994 Unknown [id number] 2.16.840.1.739232.3.579.2. 1260 1994 Unknown [id number] 2.16.840.1.128739.3.579.2. 173 1994 Unknown [id number] 2.16.840.1.273656.3.579.2. 1259 1994 Unknown [id number] 2.16.840.1.741052.3.579.2. 1259 1994 Unknown [id number] 2.16.840.1.426207.3.579.2. 1259 1994 Unknown [id number] 2.16.840.1.980965.3.579.2. 594 1994 Unknown [id number] 2.16.840.1.218989.3.579.2. 594 1994 Unknown [id number] 2.16.840.1.829108.3.579.2. 594 1994 Unknown [id number] 2.16.840.1.549841.3.579.2. 594 1994 Unknown [id number] 2.16.840.1.565836.3.579.2. 594 1994 Unknown [id number] 2.16.840.1.179901.3.579.2. 594 1994 Unknown [id number] 2.16.840.1.352788.3.579.2. 594 1994 Unknown [id number] [id number]. 594 Social History Date Type Detail Facility Tobacco smoking stat us GAIS Unknown if ever smoked [facility] Work Phone: Start: 1994 Sex Assigned At Not on file [facility] Work Phone: Start: 04-21-2018 End: 09-22-2023 Tobacco smoking status NHIS Never smoked tobacco [facility] Start: 04-21-2018 End: 09-22-2023 Tobacco use and exposure Smokeless tobacco non-user [facility] Start: 06-05-2021 End: 09-22-2023 Alcohol intake Current drinker of alcohol (finding) [facility] Start: 04-15-2020 History SDOH Alcohol Frequency 2 [facility] Start: 04-15-2020 History SDOH Alcohol Std Drinks 1 [facility] Start: 05-10-2021 History SDOH Alcohol Comment 1-2 drinks per month [facility] Start: 05-26-2021 End: 06-05-2021 Exposure to SARS-CoV-2 (event) Not sure [facility] Start: 04-15-2020 End: 12-24-2022 History of Social function [facility] Start: 04-15-2020 End: 12-24-2022 Alcohol Use Disorder Identification Test - Consumption [AUDIT-C] [facility] How often to you hav e a drink containing alcohol? Monthly or less [facility] How many standard dr inks containing alcohol do you have on a typical day? 1 or 2 [facility] How often do you hav e 6 or more drinks on 1 occasion? Never [facility] Start: 03-16-2017 Gender identity Identifies as female gender (finding) [facility] Adolescent depressio n screening assessment 0 [facility] Start: 1994 Sex assigned at Female [facility] Clinical Notes 06-05-2021 to 09-22-2023 Latrice Glover MD - 09/22/2023 1:30 PM EDTCdanni Galdamez - 09/22/2023 1:30 PM EDMicaela Torres MD - 09/22/2023 1:30 PM EDTMkeysha Glover MD - 09/22/2023 1:30 PM EDTPatient Instructions Note Date & Type Note Facility 09-22-2023 History of Present illness Narrative RFC: Patient with thyroid nodule. Most recent US showing nodule TI-RADS 3 Regan Schaeffer, WATCH DIAL MAKER-* HPI: Ms. Cardenas is a 28 y.o. female who has a past medical history of Asthma, Bicuspid aortic valve, Palpitations, and Thyroid nodule. She has no past medical history of Adrenal insufficiency, Anemia, Arrhythmia, Arthritis, Bleeding disorder, CAD (coronary artery disease), Cardiac angina, Congestive heart failure, COPD (chronic obstructive pulmonary disease), Depression, Diabetes mellitus, Difficult intubation, Essential hypertension, benign, GERD (gastroesophageal reflux disease), Glaucoma, Graves disease, Elyssa's thyroiditis, Hepatitis, HIV (human immunodeficiency virus infection), Hyperlipidemia, Hyperthyroidism, Hypogonadism male, Hypothyroidism, Liver disease, MD (myocardial infarction), Migraine, Multinodular goiter, LADY (obstructive sleep apnea), Osteopenia, Osteoporosis, Pacemaker, Panhypopituitarism, Papillary thyroid carcinoma, PCOS (polycystic ovarian syndrome), Pituitary adenoma, Postablative hypothyroidism, Postoperative hypothyroidism, Primary hyperparathyroidism, Renal disease, Seizure, Sickle cell anemia, Stroke, TIA (transient ischemic attack), Type 1 diabetes, Type 2 diabetes mellitus, or Vascular disease., here today for an evaluation of thyroid nodule. Back in 2019, patient states that she had lymphadenopathy in the neck and a CT neck was done which showed a thyroid nodule. She was evaluated by ENT at the time and an ultrasound was completed which showed an atrophic right thyroid lobe, and a normal left thyroid lobe with a nodule that measured 0.7 x 0.3 x 0.4 cm. A repeat ultrasound was done in 05/23/2023 which showed growth in the nodule which now measured 1.3 x 0.9 x 0.5 cm. Patient was referred over to Endocrinology for management of thyroid nodule. Patient presents with her mother. Her mother states that when Lisa was young she was told that she had hypothyroidism, however no medication was prescribed and this was never followed up on. Lisa is currently 16 weeks . Her last TFTs done on 08/21/2023 showed a TSH of 2.881 with a normal free T4. She complains of symptoms of palpitations, mild tremor. She is also noticed a sensation of something getting stuck in her throat upon swallowing certain foods. She denies change in her voice, sweats, diarrhea, constipation, dry skin, brittle hair and hot/cold intolerance. There is no family history of thyroid CA or personal history of head/neck irradiation. Otherwise she is feeling well, with no other complaints. Past Medical History: Diagnosis Date Asthma Bicuspid aortic valve Palpitations Thyroid nodule Family History Problem Relation Age of Onset Other - Specify Mother Osteopenia Heart Defect Mother Mitral Valve Porlapse Other - Specify Father Thrombocytophilia Bleeding or Clotting Problems Father Prostate Cancer Father Seizures/Epilepsy Brother Other - Specify Brother Thrombocytophilia Bleeding or Clotting Problems Brother Bleeding or Clotting Problems Brother Bleeding or Clotting Problems Paternal Grandmother Heart Defect Maternal Uncle Mitral valve prolapse Heart Defect Maternal Aunt Unknown left sided lesion, recent valve replacement Current Outpatient Medications Medication Sig lidocaine viscous 80 mL, diphenhydrAMINE (BENADRYL) 80 mL, alum/mag hydrox.-simethicone 80 mL mouthwash Swish and swallow 15 mL every 6 hours as needed. lidocaine viscous-Alum & Mag Hcilbujur-Crteak-vvttyrickySWNPX oral mouthwash Swish and swallow 15mL by mouth every 6 hours as needed. norgestimate-ethinyl estradiol (Sprintec 28) 0.25-35 MG-MCG tablet Take 1 tablet by mouth at bedtime. nystatin [id number] UNIT/ML oral suspension Swish and swallow 10 mL 4 times daily. ondansetron 4 MG Tab Dispersible tablet Dissolve 1 tablet by mouth every 8 hours as needed for Nausea / Vomiting. oxyCODONE 5 MG tablet Take 1 tablet by mouth every 4 hours as needed for up to 7 days. Vit-DSS-Fe Fum-FA ( 19) tablet Take 1 tablet by mouth daily. ROS: Please see the HPI for pertinent positives and negatives, otherwise reviewed in full and negative. Physical Exam General/Constitutional: Normal-appearing female, who looks her stated age of 28 y.o.. No acute distress. Vital Signs: Smoking Status Never , Wt Readings from Last 3 Encounters: 12/24/22 61.2 kg (135 lb) 12/24/22 61.4 kg (135 lb 4.8 oz) 08/15/22 61.2 kg (135 lb) , There is no height or weight on file to calculate BMI. HEENT: NCAT, no lid lag or stare, no proptosis Neck: Supple, non-tender, with no lymphadenopathy. Thyroid: Thyroid is normal in size and contour, no nodules appreciated Cardiac: Regular rhythm, normal rate. Normal S1, S2. No murmurs, rubs or gallops. Pulmonary/Chest: Lungs are clear to ascultation bilaterally with normal respiratory effort. No wheezes, rhonchi or rales. Abdomen: Soft, nontender, no hepatosplenomegaly Extremities: No cyanosis, clubbing or peripheral edema. Periperal Vascular Exam: 2+ radial pulses and dorsalis pedis pulses. Neurological: Conscious, alert and oriented. Reflexes are 2 + bilaterally Procedure / Imaging / Lab Data: Pertinent procedure/imaging/lab data was reviewed/discussed with the patient today: Labs: Lab Results Component Value Date TSH 1.939 09/23/2019 Imaging: EXAM: US THYROID, 06/02/2023 16:01 PM CLINICAL INDICATIONS: thyroid nodule Outside Order;Evaluate and treat;US Thyroid; E04.1:Thyroid nodule COMPARISON: Compared to prior study dated 06/01/2018 TECHNIQUE: Real-time, grayscale ultrasound evaluation of the neck was performed in transverse and longitudinal orientations using a high-resolution linear array transducer. Color Doppler was utilized to assess vascular flow. FINDINGS: Background thyroid parenchyma is homogeneous . The right lobe measures 1.4 x 0.5 x 0.7 cm and the left lobe measures 5.4 x 1.5 x 1.7 cm. The isthmus is not well-visualized. Thyroid nodule(s) as follows: Nodule # 1 : Left inferior Size: 1.3 x 0.9 x 0.5 cm, previously 0.7 x 0.3 x 0.4 Composition: Solid or almost completely solid (2 points) Echogenicity: Hyperechoic or isoechoic (1 point) Shape: Xukab-mbvp-llcb (0 points) Margin: Smooth (0 points) Echogenic Foci: None or large comet-tail artifacts (0 points) TI-RADS* score: TR3 (3 pts)- Mildly Suspicious. No FNA or recommended imaging follow-up IMPRESSION IMPRESSION: The right hepatic lobe is atrophic. Again seen is a left inferior thyroid nodule which has slowly grown since 2019. Nodule does not meet size criteria for tissue sampling. EXAM: US THYROID, 06/01/2018 10:14 AM CLINICAL INDICATIONS: right thyroid atrophy; left thyroid cyst E04.1:Thyroid cyst COMPARISON: Ultrasound neck 03/27/2018. CT neck 05/01/2018. TECHNIQUE: Real-time, grayscale ultrasound evaluation of the neck was performed in transverse and longitudinal orientations using a high-resolution linear array transducer. Color Doppler was utilized to assess vascular flow. FINDINGS: Background thyroid parenchyma is homogeneous. The right lobe is atrophic relative to the left and measures 1.4 x 0.5 x 0.5 cm. The left lobe measures 4.9 x 1.6 x 1.5 cm. The isthmus is normal in appearance and measures 1 mm. A small colloid cyst in the superior left thyroid is incidentally noted measuring up to 2 mm. Isoechoic nodule along the medial left thyroid measures 0.3 x 0.4 x 0.7 cm. Internal vascularity demonstrated. This may represent extension of the left thyroid lobe rather than a separate nodule when compared to prior CT neck. IMPRESSION: 1. Asymmetric atrophy of the right thyroid lobe compared to the left. 2. Benign colloid cyst in the left thyroid lobe. 3. The isoechoic area along the medial left thyroid likely represents an extension of the gland rather than a separate nodule when compared to prior CT study. Assessment: Ms. Cardenas is a 28 y.o. female here for evaluation of thyroid nodule. US was done in clinic today Plan: #Left inferior thyroid nodule - upon evaluation by ultrasound in clinic, it appears that the previously noted nodule in the left inferior thyroid bed is likely normal thyroid tissue. No definitive thyroid nodules identified. - patient recently had lab work done on 08/21/2023 which showed a TSH of 2.8 and a free T4 of 1.9. Since she is 16 weeks , there was discussion regarding starting a low dose of levothyroxine. We advised that this is not necessary since her TSH is within the normal range and any development pertaining to thyroid hormone replacement would be completed by the 1st trimester. - follow up p.r.n. Patient seen and plan discussed with Dr. Torres Sincerely, Latrice Glover MD Fellow, Division of Endocrinology, Diabetes, and Metabolism [facility] at the [facility] [place] [address] No follow-ups on file. Patient has verified full name and . Attending Note: Patient seen, examined, and discussed in clinic with Dr. Glover; I have reviewed her documentation and agree with the history, physical exam, and assessment and plan as stated. Ms. Cardenas is a 28 y.o. woman with a h/o bicuspid valve, seen by ENT in 2019 for swollen lymph nodes, which led to a CT of the neck that led to a thyroid nodule being discovered. She had a thyroid US in 2019, which identified a small nodule and an atrophied/absent right lobe. The nodule is on the left side of the thyroid gland. Of note the ENT physician told her she has an enlarged base of the tongue, which is probably remnant thyroid tissue. She is currently 16 weeks , says she's feeling good so far. She had a TSH done one month ago, which was normal (2.8) - she says her OB suggested taking 25 mcg of levothyroxine to help with neural development. She has had palpitations for the past year, she feels an uncomfortable sensation with swallowing - chokes on certain foods. She has developed tremors over the last year. She denies any family history of thyroid disease other than two siblings who were hypothyroid but not placed on medicines (she is one of the two). No family history of thyroid cancer, no radiation exposure. She saw Dr. Lunsford in 2019, Dr. Amato in 2019 in regard to her thyroid nodule. Last US was in May of this year - the report noted an increase in size of a previously noted thyroid nodule. In office US performed; the isthmus and right lobe are absent. The left lobe is homogeneous and normal in size. There is a small area in the medial portion posteriorly that is bordered by blood vessels and in still frames can appear separate - but if you move the probe in real time, this area reconnects to the thyroid. It's likely a small appendage of thyroid tissue, not a true nodule. What I measured today matches with the 2019 images - which actually do a great job showing this same phenomenon of the thyroid gland contiguous with this small area. 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 No associated abnormalities identified. ISTHMUS: Atrophic isthmus Appearance: Present on the left side, tapering towards the midline. Measures 0.3 cm in thickness. LEFT LOBE: Normal-appearing left thyroid lobe with homogeneous parenchyma Overall Size: 1.6 x 1.5 x 5.1 cm Left inferior thyroid nodule: In the left inferior thyroid bed, an isoechoic area measuring 0.3 x 0.5 x 0.7 cm is noted. It has indistinct borders and likely represents normal thyroid tissue rather than a discrete nodule. LYMPH NODES: Multiple benign-appearing lymph nodes identified along the jugular chains bilaterally. 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 The previously noted nodule in the left inferior thyroid bed is likely normal thyroid tissue. No definitive thyroid nodules identified. No follow-up is recommended for the focal area in the left lobe. Attending Dr. Torres was present during all parts of the procedure. Sincerely, Latrice Glover MD Fellow, Division of Endocrinology, Diabetes, and Metabolism [facility] [place] [address] documented in this encounter [facility] 09-22-2023 Instructions Latrice Glover MD - 09/22/2023 1:30 PM EDT It was great seeing you today! Division of Endocrinology Outpatient Care [facility] Follow-up appointments: Please arrive at least 20 minutes prior to your follow up appointments in order to keep visits as close as possible to the scheduled times. If you need to cancel an appointment, please call at least 48 hours in advance. Please bring your medications or an updated list of medications to each of your visits to help ensure safety in prescribing future medications. If you are being seen for diabetes, please bring your glucose meter and/or glucose log with 2 weeks of glucose readings to each visit. Medication Refills: Please request medication refills at the time of your appointment. - Refills requested by phone or mychart in between visits require at least 2 business days to be processed. Lab Results: Please allow at least 7 business days for lab results to be reviewed. - Please note, that some specialty testing may take up to at least 7 business to be completed. - If there are any urgent issues requiring immediate attention, we will contact you at your provided phone numbers. - Any non-urgent results will be relayed via [employer] if you have signed up for this service or via a letter through the mail and/or phone call. Communication with your provider: - [facility] [employer] is highly recommended as the most efficient means to contact your provider. However for urgent concerns please call. - For phone calls, please call our office Friday- Friday 8am to 4:30pm and your message will be relayed to your provider. Please allows 1-2 business days for a response. - After hours messages are left with an answering service and will be handled by the clinic the following business day. Patient information and forms: Please visit our website for helpful resources about our team, educational materials and forms that will help perpare you for your future visits: [email or web address] Patient Care section. Sincerely, Latrice Glover MD Fellow, Division of Endocrinology, Diabetes, and Metabolism [facility] at the [facility] [place] [address] documented in this encounter [facility] 09-22-2023 Procedure note Associated Ord er(s): CHG US SOFT TISSUE HEAD & NECK REAL TIME IMGE DOCM Ms. Cardenas was seen and examined with Dr. Glover, I independently verified the findings on US and agree with the documented report - thyroid ultrasound report appears in the notes tab. [facility] 09-22-2023 Procedure note Associated Ord er(s): CHG US SOFT TISSUE HEAD & NECK REAL TIME IMGE DOCM Ms. Cardenas was seen and examined with Dr. Glover, I independently verified the findings on US and agree with the documented report - thyroid ultrasound report appears in the notes tab. documented in this encounter [facility] 12-24-2022 History of Present illness Narrative Chief Complaint: Chief Complaint Patient presents with New Patient Reports right side of neck with questionable swelling, continues to have problems with food getting stuck. Has to wash down food with liquids. HPI: Lisa Cardenas is a 27 y.o. female smoker / non-smoker who presents 12/24/22 to the [facility] for evaluation of right sided lymphadenopathy. Patient states that this began approximately 3 weeks ago. She denies this as being painful. She feels popping when she turns her head to the right. She did see Dr. Armas in 2019 for complaints of left sided lymphadenopathy. She underwent a CT neck in 2019 that revealed a stable small ovoid hyperdensity at the base of the tongue in the midline suggestive of lingual thyroid/ectopic thyroid tissue. She did see endocrinology following this episode where a POC US was completed and no thyroid nodule was found in the left lobe with right lobe absent. She denies a history of smoking. She denies a history of H/N cancer. She also has complaints of dysphagia. She states this has been ongoing for many years. She has noticed that she will choke on eggs when eating them. She denies having ever had a swallow study in the past. Patient denies odynophagia, otalgia, headaches, dyspnea, cough, facial pain, vision or hearing changes. Nursing documentation has been reviewed. Past Medical History Past Medical History: Diagnosis Date Asthma Bicuspid aortic valve Palpitations Thyroid nodule Past Surgical History Past Surgical History: Procedure Laterality Date CONTROL OROPHARYNGEAL HEMORRHAGE SECONDARY Bilateral 05/22/2021 Laterality: Bilateral; Surgeon: Jigar Hutchins MD; Location: [facility] MAIN OR TONSILLECTOMY Bilateral 05/10/2021 Laterality: Bilateral; Surgeon: Charlotte Cárdenas MD; Location: [facility] SAME DAY SURGERY MAIN OR CHOLECYSTECTOMY ROBOTIC N/A 04/06/2019 Laterality: N/A; Surgeon: Brook Denney MD; [facility] MAIN OR WISDOM TEETH EXTRACTION Social History Social History Socioeconomic History Marital status: Spouse name: Not on file Number of children: Not on file Years of education: Not on file Highest education level: Not on file Occupational History Not on file Tobacco Use Smoking status: Never Smokeless tobacco: Never Vaping Use Vaping Use: Never used Substance and Sexual Activity Alcohol use: Yes Comment: 1-2 drinks per month Drug use: Never Sexual activity: Not on file Other Topics Concern Not on file Social History Narrative Not on file Social Determinants of Health Financial Resource Strain: Not on file Food Insecurity: Not on file Transportation Needs: Not on file Physical Activity: Not on file Stress: Not on file Social Connections: Not on file Intimate Partner Violence: Not on file Housing Stability: Not on file Family History Family History Problem Relation Age of Onset Other - Specify Mother Osteopenia Heart Defect Mother Mitral Valve Porlapse Other - Specify Father Thrombocytophilia Bleeding or Clotting Problems Father Prostate Cancer Father Seizures/Epilepsy Brother Other - Specify Brother Thrombocytophilia Bleeding or Clotting Problems Brother Bleeding or Clotting Problems Brother Bleeding or Clotting Problems Paternal Grandmother Heart Defect Maternal Uncle Mitral valve prolapse Heart Defect Maternal Aunt Unknown left sided lesion, recent valve replacement Medications Current Outpatient Medications Medication Sig Dispense Refill Vit-DSS-Fe Fum-FA ( 19) tablet Take 1 tablet by mouth daily. 90 tablet 3 lidocaine viscous 80 mL, diphenhydrAMINE (BENADRYL) 80 mL, alum/mag hydrox.-simethicone 80 mL mouthwash Swish and swallow 15 mL every 6 hours as needed. 1 Bottle 0 lidocaine viscous-Alum & Mag Ywpalmuur-Oidpcd-piinczeptsYXBMU oral mouthwash Swish and swallow 15mL by mouth every 6 hours as needed. 240 mL 0 norgestimate-ethinyl estradiol (Sprintec 28) 0.25-35 MG-MCG tablet Take 1 tablet by mouth at bedtime. nystatin 104812 UNIT/ML oral suspension Swish and swallow 10 mL 4 times daily. 280 mL 0 ondansetron 4 MG Tab Dispersible tablet Dissolve 1 tablet by mouth every 8 hours as needed for Nausea / Vomiting. 15 tablet 0 oxyCODONE 5 MG tablet Take 1 tablet by mouth every 4 hours as needed for up to 7 days. 20 tablet 0 No current facility-administered medications for this visit. Allergies: Amoxicillin, Biaxin [clarithromycin], Clindamycin, and Doxycycline Immunizations There is no immunization history on file for this patient. Review of Systems Constitutional: Negative for fever, weight loss and weight gain. HENT: Negative for ear pain, sore throat and hoarseness. Negative for difficulty swallowing. Cardiovascular: Negative for chest pain and dyspnea on exertion (Can climb up 2 floors). Respiratory: Is not experiencing shortness of breath. Gastrointestinal: Negative for nausea and vomiting. Neurological: Negative for headaches. Psychiatric: The patient is not nervous/anxious. Musculoskeletal: Denies muscle pain/weakness Heme/Lymph: Positive for lymph nodes, easy bruising Physical Exam Vital Signs: BP 123/78 Pulse 73 Temp 98.2 F (36.8 C) (Oral) Resp 16 Wt 61.4 kg (135 lb 4.8 oz) SpO2 99% BMI 23.22 kg/m Smoking Status Never General: Well-developed, well-nourished. No distress. Communication and Voice: Clear pitch and clarity Respiratory Respiratory effort: Equal inspiration and expiration without stridor Neuro: Patient oriented to person, place, and time; Appropriate mood and affect; Gait is intact with no imbalance; Cranial nerves II-XII are intact Head and Face Inspection: Normocephalic and atraumatic without mass or lesion Palpation: Facial skeleton intact without bony stepoffs Facial Strength: Facial motility symmetric and full bilaterally Eyes: PERRLA. No nystagmus with normal extraocular motion bilaterally ENT Pinna: External ear intact and fully developed External canal: Canal is patent with intact skin Tympanic Membrane: Clear and mobile External nose: No scar or anatomic deformity Internal Nose: Septum intact and midline. No edema, polyp, or rhinorrhea. TMJ: No pain to palpation with full mobility Salivary Glands: No mass or tenderness Lips: No lesion. Oral cavity: No mass or lesion. Oropharynx: No mass or lesion. Tonsillar fossa symmetric. Base of tongue soft without mass or induration. Nasopharynx: No mass or lesion with intact mucosa Hypopharynx: Intact mucosa without pooling of secretions Larynx: Full true vocal cord mobility bilaterally without lesion or mass Neck Trachea: Midline trachea. Thyroid: No mass or nodularity. Lymphatics: Right level III lymph node palpable; ~ 1 cm; non-tender and mobile Flexible laryngoscopy completed per Dr. Chanda SHAH Data: CT Neck - 11/30/2018 IMPRESSION: 1. Stable small ovoid hyperdensity at the base of the tongue in the midline suggestive of lingual thyroid/ectopic thyroid tissue. 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 2. Previously identified tiny nodule in the left thyroid lobe is less apparent or not well evaluated on the current exam. 3. Otherwise, no significant interval change compared to the prior study. Thyroid US - 09/23/2019 Right Lobe Size seems absent Isthmus Left lobe Size 16.6x12.4x49.1 Homogenous/ Lymph nodes : On left below angle of jaw 9.9x3.[address] not suspicious Impression/Plan: 27 y/o with a 3 week history of right sided lymphadenopathy. We will plan to obtain repeat CT neck to rule out pathologic cause of lymphadenopathy. We will reach out to patient regarding results. Regarding dysphagia, we will plan to have patient undergo MBS for further evaluation. Patient is to RTC if symptoms worsen or new concerns arise. Chief Complaint: Chief Complaint Patient presents with New Patient Reports right side of neck with questionable swelling, continues to have problems with food getting stuck. Has to wash down food with liquids. HPI: Lisa Cardenas is a 27 y.o. female smoker / non-smoker who presents 12/24/22 to the [facility] for evaluation of right sided lymphadenopathy. Patient states that this began approximately 3 weeks ago. She denies this as being painful. She feels popping when she turns her head to the right. She did see Dr. Armas in 2019 for complaints of left sided lymphadenopathy. She underwent a CT neck in 2019 that revealed a stable small ovoid hyperdensity at the base of the tongue in the midline suggestive of lingual thyroid/ectopic thyroid tissue. She did see endocrinology following this episode where a POC US was completed and no thyroid nodule was found in the left lobe with right lobe absent. She denies a history of smoking. She denies a history of H/N cancer. She also has complaints of dysphagia. She states this has been ongoing for many years. She has noticed that she will choke on eggs when eating them. She denies having ever had a swallow study in the past. Patient denies odynophagia, otalgia, headaches, dyspnea, cough, facial pain, vision or hearing changes. Nursing documentation has been reviewed. Past Medical History Past Medical History: Diagnosis Date Asthma Bicuspid aortic valve Palpitations Thyroid nodule Past Surgical History Past Surgical History: Procedure Laterality Date CONTROL OROPHARYNGEAL HEMORRHAGE SECONDARY Bilateral 05/22/2021 Laterality: Bilateral; Surgeon: Jigar Hutchins MD; Location: [facility] MAIN OR TONSILLECTOMY Bilateral 05/10/2021 Laterality: Bilateral; Surgeon: Charlotte Cárdenas MD; [facility] MAIN OR CHOLECYSTECTOMY ROBOTIC N/A 04/06/2019 Laterality: N/A; Surgeon: Brook Denney MD; [facility] EXTRACTION Social History Social History Socioeconomic History Marital status: Spouse name: Not on file Number of children: Not on file Years of education: Not on file Highest education level: Not on file Occupational History Not on file Tobacco Use Smoking status: Never Smokeless tobacco: Never Vaping Use Vaping Use: Never used Substance and Sexual Activity Alcohol use: Yes Comment: 1-2 drinks per month Drug use: Never Sexual activity: Not on file Other Topics Concern Not on file Social History Narrative Not on file Social Determinants of Health Financial Resource Strain: Not on file Food Insecurity: Not on file Transportation Needs: Not on file Physical Activity: Not on file Stress: Not on file Social Connections: Not on file Intimate Partner Violence: Not on file Housing Stability: Not on file Family History Family History Problem Relation Age of Onset Other - Specify Mother Osteopenia Heart Defect Mother Mitral Valve Porlapse Other - Specify Father Thrombocytophilia Bleeding or Clotting Problems Father Prostate Cancer Father Seizures/Epilepsy Brother Other - Specify Brother Thrombocytophilia Bleeding or Clotting Problems Brother Bleeding or Clotting Problems Brother Bleeding or Clotting Problems Paternal Grandmother Heart Defect Maternal Uncle Mitral valve prolapse Heart Defect Maternal Aunt Unknown left sided lesion, recent valve replacement Medications Current Outpatient Medications Medication Sig Dispense Refill Vit-DSS-Fe Fum-FA ( 19) tablet Take 1 tablet by mouth daily. 90 tablet 3 lidocaine viscous 80 mL, diphenhydrAMINE (BENADRYL) 80 mL, alum/mag hydrox.-simethicone 80 mL mouthwash Swish and swallow 15 mL every 6 hours as needed. 1 Bottle 0 lidocaine viscous-Alum & Mag Apgnmpsii-Gvugrp-tmwbqsdtlaSLAWC oral mouthwash Swish and swallow 15mL by mouth every 6 hours as needed. 240 mL 0 norgestimate-ethinyl estradiol (Sprintec 28) 0.25-35 MG-MCG tablet Take 1 tablet by mouth at bedtime. nystatin [id number] UNIT/ML oral suspension Swish and swallow 10 mL 4 times daily. 280 mL 0 ondansetron 4 MG Tab Dispersible tablet Dissolve 1 tablet by mouth every 8 hours as needed for Nausea / Vomiting. 15 tablet 0 oxyCODONE 5 MG tablet Take 1 tablet by mouth every 4 hours as needed for up to 7 days. 20 tablet 0 No current facility-administered medications for this visit. Allergies: Amoxicillin, Biaxin [clarithromycin], Clindamycin, and Doxycycline Immunizations There is no immunization history on file for this patient. Review of Systems Constitutional: Negative for fever, weight loss and weight gain. HENT: Negative for ear pain, sore throat and hoarseness. Negative for difficulty swallowing. Cardiovascular: Negative for chest pain and dyspnea on exertion (Can climb up 2 floors). Respiratory: Is not experiencing shortness of breath. Gastrointestinal: Negative for nausea and vomiting. Neurological: Negative for headaches. Psychiatric: The patient is not nervous/anxious. Musculoskeletal: Denies muscle pain/weakness Heme/Lymph: Positive for lymph nodes, easy bruising Physical Exam Vital Signs: BP 123/78 Pulse 73 Temp 98.2 F (36.8 C) (Oral) Resp 16 Wt 61.4 kg (135 lb 4.8 oz) SpO2 99% BMI 23.22 kg/m Smoking Status Never General: Well-developed, well-nourished. No distress. Communication and Voice: Clear pitch and clarity Respiratory Respiratory effort: Equal inspiration and expiration without stridor Neuro: Patient oriented to person, place, and time; Appropriate mood and affect; Gait is intact with no imbalance; Cranial nerves II-XII are intact Head and Face Inspection: Normocephalic and atraumatic without mass or lesion Palpation: Facial skeleton intact without bony stepoffs Facial Strength: Facial motility symmetric and full bilaterally Eyes: PERRLA. No nystagmus with normal extraocular motion bilaterally ENT Pinna: External ear intact and fully developed External canal: Canal is patent with intact skin Tympanic Membrane: Clear and mobile External nose: No scar or anatomic deformity Internal Nose: Septum intact and midline. No edema, polyp, or rhinorrhea. TMJ: No pain to palpation with full mobility Salivary Glands: No mass or tenderness Lips: No lesion. Oral cavity: No mass or lesion. Oropharynx: No mass or lesion. Tonsillar fossa symmetric. Base of tongue soft without mass or induration. Nasopharynx: No mass or lesion with intact mucosa Hypopharynx: Intact mucosa without pooling of secretions Larynx: Full true vocal cord mobility bilaterally without lesion or mass Neck Trachea: Midline trachea. Thyroid: No mass or nodularity. Lymphatics: Right level III lymph node palpable; ~ 1 cm; non-tender and mobile Flexible laryngoscopy completed per Dr. Chanda SHAH Procedure: Flexible fiberoptic nasopharyngoscopy/laryngoscopy: Indications: Need for detailed exam, hyperactive gag reflex, inadequate mirror visualization. Surgeon: Emile Armas MD Procedure note/findings: After informed discussion of the risks, benefits, and alternatives after indications as noted above, a fiberoptic nasopharyngoscopy and laryngoscopy was recommended for above indications, and the patient consented to this. Nasal cavities were topically anesthetized and decongested with 4% lidocaine solution mixed with Afrin after which a flexible scope was easily advanced without difficulty into the left and right nasal cavities as well as into the nasopharynx. Nasal cavities were intact without gross mass or lesion. Nasopharynx, similarly, revealed no mass lesion or granularity. There was no ulceration. There was no gross asymmetry. Fossa of Rosenmueller was intact bilaterally. The eustachian tube orifices were intact bilaterally and patent. Posterior and lateral nasal pharyngeal silva were intact and symmetric without ulceration, mass, or granularity. Scope was now advanced distally. Visible oropharynx including lateral silva and tongue base was clear without lesion. Larynx and hypopharynx were examined. Larynx was intact with normal true vocal cord mobility bilaterally. No discrete masses or lesions in any location. Hypopharynx was clear without asymmetry. Airway was patent. The scope was then withdrawn and removed. She tolerated this well without complications. ATTENDING PHYSICIAN ATTESTATION: I was physically present and actively involved throughout the entire procedure. Emile Armas MD Data: CT Neck - 11/30/2018 IMPRESSION: 1. Stable small ovoid hyperdensity at the base of the tongue in the midline suggestive of lingual thyroid/ectopic thyroid tissue. 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 2. Previously identified tiny nodule in the left thyroid lobe is less apparent or not well evaluated on the current exam. 3. Otherwise, no significant interval change compared to the prior study. Thyroid US - 09/23/2019 Right Lobe Size seems absent Isthmus Left lobe Size 16.6x12.4x49.1 Homogenous/ Lymph nodes : On left below angle of jaw 9.9x3.[address] not suspicious Impression/Plan: 27 y/o with a 3 week history of right sided lymphadenopathy. We will plan to obtain repeat CT neck to rule out pathologic cause of lymphadenopathy. We will reach out to patient regarding results. Regarding dysphagia, we will plan to have patient undergo MBS for further evaluation. Patient is to RTC if symptoms worsen or new concerns arise. Attending Physician Note I independently interviewed, examined and formulated the medical decision making for Ms. Cardenas with Regan Schaeffer APRN-TIMMY. Details of my interview, examination findings, and medical decision-making confirmed the findings above. I have personally amended the documentation where appropriate. Doing well based on my examination. Fu/ in PRN if above tests results are not concerning. documented in this encounter [facility] 11-20-2022 History of Present illness Narrative Maternal- Medicine (High Risk Obstetrics) Consultation Indication for consultation: Congenital Bicuspid aortic valve Referring Provider: Herve Will MD History Lisa Cardenas is a 27yo G0 LMP [id number] using nothing for contraception who presents for preconception consultation in the setting of hx congenital bicuspid aortic valve. Her history is also notable for a history of exercise induced asthma and thyroid nodule. She feels well today and has no complaints or concerns. She was recently seen by Dr. Peraza ([facility]) for preconception counseling on 05/21/2022 at which time recommended a cardiac MRI/MRA for further evaluation of new post-valvular aortic dilation on echocardiogram. The patient has a history of mild dysautonomia with ER visit in 07/2021 in setting of chest pain (negative cardiac evaluation). She states that she usually has some dizziness primarily related to standing up too quickly, but generally resolves on its own. She has otherwise not experienced any further episodes of chest pain. The patient does not have any history of infective endocarditis and has been recommended to have SBE before procedures, most recently with tonsillectomy complicated by post-tonsillectomy hemorrhage in May 2021. The patient was also seen by Endocrinology in 09/2019 for evaluation of multiple thyroid nodules noted in 2018 and hx hypocalcemia. At that time, decision was made to defer FNA given small size and benign appearance with continued observation with thyroid ultrasounds. Recommended baseline TFTs if pt were to become . Currently asymptomatic. The patient was diagnosed with exercised induced asthma when she was younger. She has not had to use an albuterol inhaler as this is no longer an issue. Her and her partner have not yet started attempts to conceive yet and she is not currently taking a PNV. She desires to be seen here at [facility]. 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 Ms. Lisa Cardenas has the following problems that will affect future : Obstetric Problem List Bicuspid aortic valve with moderately dilated ascending aorta <45mm Exercise induced asthma Hx Thyroid nodule History reviewed Patient Active Problem List Diagnosis Chronic cholecystitis Chronic tonsillitis Thyroid nodule Asthma Obstetric Hx: No obstetric history on file. OB History Para Term AB Living 0 0 0 0 0 0 SAB IAB Ectopic Molar Multiple Live Births 0 0 0 0 0 0 Gynecology History regular monthly menses since menarche at age 12yo uses nothing for BCM, past BCM have included sprintec (ovarian cyst supression, stopped due to abnormal uterine bleeding) Last Pap: 2022 Normal per pt report (none on file) Denies history of abnormal Pap or STI/STDs Past Surgical History: Past Surgical History: Procedure Laterality Date CONTROL OROPHARYNGEAL HEMORRHAGE SECONDARY Bilateral 05/22/2021 Laterality: Bilateral; Surgeon: Jigar Hutchins MD; Location: [facility] MAIN OR TONSILLECTOMY Bilateral 05/10/2021 Laterality: Bilateral; Surgeon: Charlotte Cárdenas MD; Location: [facility] SAME DAY SURGERY MAIN OR CHOLECYSTECTOMY ROBOTIC N/A 04/06/2019 Laterality: N/A; Surgeon: Brook Denney MD; [facility] WISDOM TEETH EXTRACTION - No anesthesia complications - No hx blood transfusion Past Medical History: Past Medical History: Diagnosis Date Asthma Bicuspid aortic valve Palpitations Thyroid nodule Home Meds: Outpatient Medications Prior to Visit Medication Sig Dispense Refill lidocaine viscous 80 mL, diphenhydrAMINE (BENADRYL) 80 mL, alum/mag hydrox.-simethicone 80 mL mouthwash Swish and swallow 15 mL every 6 hours as needed. 1 Bottle 0 lidocaine viscous-Alum & Mag Jnvzhspgt-Xpdhay-mxwbrvtblgUXGIK oral mouthwash Swish and swallow 15mL by mouth every 6 hours as needed. 240 mL 0 norgestimate-ethinyl estradiol (Sprintec 28) 0.25-35 MG-MCG tablet Take 1 tablet by mouth at bedtime. nystatin [id number] UNIT/ML oral suspension Swish and swallow 10 mL 4 times daily. 280 mL 0 ondansetron 4 MG Tab Dispersible tablet Dissolve 1 tablet by mouth every 8 hours as needed for Nausea / Vomiting. 15 tablet 0 oxyCODONE 5 MG tablet Take 1 tablet by mouth every 4 hours as needed for up to 7 days. 20 tablet 0 No facility-administered medications prior to visit. - None Allergies: Allergies Allergen Reactions Amoxicillin Rash As a child Biaxin [Clarithromycin] Rash Ok to take azithromycin Clindamycin Able to take IV- just had throat ulceration when swallowed pill Doxycycline Ulcerative esophagus Social History: Social History Tobacco Use Smoking Status Never Smokeless Tobacco Never Alcohol use: occ, no issues Illicit drugs: Denies Family Hx: Family History Problem Relation Age of Onset Other - Specify Mother Osteopenia Heart Defect Mother Mitral Valve Porlapse Other - Specify Father Thrombocytophilia Bleeding or Clotting Problems Father Prostate Cancer Father Seizures/Epilepsy Brother Other - Specify Brother Thrombocytophilia Bleeding or Clotting Problems Brother Bleeding or Clotting Problems Brother Bleeding or Clotting Problems Paternal Grandmother Heart Defect Maternal Uncle Mitral valve prolapse Heart Defect Maternal Aunt Unknown left sided lesion, recent valve replacement F: denies family history of congenital anomalies, developmental delay, genetic syndromes, twins Review of Systems Pertinent items are noted in HPI, all other systems were queried and are negative. Physical Exam There were no vitals filed for this visit. General: no acute distress CV: normal rate, well perfused peripherally Resp: normal work of breathing, comfortable on room air Abd: gravid, nontender Extremities: no edema Neuro: grossly normal Labs & Imaging Labs: No results found for this or any previous visit (from the past 24 hour(s)). Imaging: EKG 05/21/2022 Normal sinus rhythm with normal cardiac intervals and persistent juvenile T-wave in V1 precordial lead. Cardiac MRI/MRA 08/15/2022 FINAL IMPRESSION ==== Bicuspid aortic valve. Dilated ascending aorta (3.9 cm). SUMMARY ==== 27 year old female with known bicuspid aortic valve, ascending aortic dilation (3.8 cm by outside echo) and mild dysautonomia referred for thoracic MRA. THORACIC MRA (and flash cine of the Aortic valve) OTHER FINDINGS: Bicuspid aortic valve with fusion of the left and right coronary cusps. VASCULAR ==== UPPER VASCULAR EVALUATION OF THE THORACIC AORTA COMMENTS 1. Left sided aortic arch with normal branching pattern; the left vertebral artery appears to arise directly from the aortic arch. 2. Dilated ascending aorta measuring 3.9 cm; with remaining measurements below. 3. Patent proximal celiac and superior mesenteric arteries. . . EVALUATION DETAILS (Thoracic Aorta) AORTIC ROOT Sinus of Valsalva Max Diameter A: 3.4 cm Sinus of Valsalva Max Diameter B: 3.2 cm + + ASCENDING AORTA Dimension A: 3.9 cm Dimension B: 3.8 cm + + ARCH OF THE AORTA Dimension A: 2.2 cm Dimension B: 2.1 cm + + ISTHMUS OF THE AORTA Dimension A: 2.1 cm Dimension B: 2.1 cm + + MID-DESCENDING AORTA Dimension A: 2 cm Dimension B: 1.9 cm + + DISTAL DESCENDING AORTA Dimension A: 1.7 cm Dimension B: 1.7 cm + + See comments. . . SCAN INFO ==== GENERAL SCANNER DETAILER PHARMACEUTICALS: [employer] MODEL: [employer] PULSE SEQUENCES: SSFP cine, HASTE morphology, 3D non-contrast MRA CONTRAST AGENT GD CONCENTRATION: 0 M SETUP DATE OF EVENT: SCAN TYPE: Clinical PATIENT TYPE: Outpatient REASON(S) FOR SCAN: Bicuspid AV (known/suspect) REFERRING PHYSICIAN: 1) Chepe Peraza ATTENDING PHYSICIAN: VIPIN ZAPATA FELLOW: DOMINGA YANG DO NURSE: Ella Haas RN TECHNOLOGIST: Winnie Mena Echocardiogram [facility] - 06/29/2020 5:00 PM EDT Bicommissural and bicuspid aortic valve with mild systolic leaflet doming and mild flow acceleration associated with trivial to mild aortic insufficiency. Moderately dilated ascending aorta. Ascending Aorta: 3.76cm (z 5.60) new finding Normal biventricular systolic function Valve Findings Bicuspid aortic valve. Systolic doming noted. Mild aortic valve insufficiency. No significant aortic valve stenosis, peak gradient is 13mmHg (mean 7 mmHg). Trivial to mild aortic valve insufficiency. Aortic valve annulus 25 mm.Normal pulmonic valve. Trace pulmonic insufficiency. Normal mitral valve. No mitral stenosis. Trace mitral valve regurgitation. Normal tricuspid valve. No tricuspid stenosis. Trace tricuspid regurgitation. normal RVSP. Atrial Findings The right atrium is normal. The left atrium is normal. Intact atrial septum. Surgeries/Interventions/Position Levocardia. Abdominal situs solitus. Atrial situs solitus. D ventricular loop. S normal position. Ventricular Findings Normal size right ventricle. Normal right ventricular systolic function. The left ventricle is normal size. Normal LV wall thickness. Normal left ventricular systolic function. Intact ventricular septum. Coronaries/Great Vessels Normal coronary artery size and origins. Aortic Valve: 2.32cm (z 1.83) Sinuses: 2.96cm (z 1.34) ST Junction: 2.84cm (z 2.75) Ascending Aorta: 3.76cm (z 5.60) Moderately dilated ascending aorta. The aortic root is normal size. The ascending aorta is normal size. The aortic arch is moderately dilated. The aortic arch measures 37.6mm mm. The descending aorta is normal size. Normal left aortic arch and no evidence of coarctation of the aorta. Normal size main pulmonary artery. Normal size left pulmonary artery. Normal right pulmonary artery. Vessels/Veins No patent ductus arteriosus. Normal superior vena cava. Normal inferior vena cava. Normal pulmonary venous drainage. Effusions/Infectious Disease There is no pericardial effusion. Assessment & Plan Lisa Cardenas is a 27 y.o. No obstetric history on file. LMP x using OCPs for contraception who presents for preconception counseling in setting of congenital bicuspid aortic valve with moderate ascending aortic dilation. Her history is also notable for a history of exercise induced asthma and thyroid nodule. Bicuspid aortic valve with moderate ascending aortic dilation <45mm In general, a bicuspid aortic valve is one of the most common congenital cardiac defects found to be in approximately 1% of the population. Patient has a known history of congenital bicuspid aortic valve and has been followed by [facility]. The patient is currently asymptomatic from a cardiac standpoint, but is at risk for aortic dissection (especially given known ascending aortic dilation), heart failure, MD, and arrhythmias due to expected cardiovascular changes in and period. Patient's most recent echocardiogram completed in June 2020 revealed bicommissural and bicuspid aortic valve with mild systolic leaflet doming, mild flow acceleration associated with trivial to mild aortic insufficiency, and moderately dilated ascending aorta with normal aortic root size.The patient was last seen by Dr. Peraza on 05/21/2022 for preconception counseling at which time recommended a cardiac MRI/MRA which was completed. At that time, her ascending aortic aneurysm measured 3.9cm. The patient reports of multiple family members with left sided cardiac lesions (most commonly mitral valve prolapse), but no other known family members with known bicuspid aortic valve. We discussed that there is a 3-8% risk of recurrence of a left sided cardiac defect in her fetus for which recommend a echocardiogram to rule out major left sided cardiac anomaly such as hypoplastic left heart syndrome or aortic stenosis. Discussed with patient that would not expect to diagnosis a bicuspid aortic valve on echocardiogram. Bicuspid aortic valves can be seen in isolation or can co-exist with other congenital cardiac defects or genetic syndromes such as Marfan syndrome. The patient qualifies for mWHO risk classification II-III which confers an intermediate increase in risk of maternal mortality, moderate to severe increase in morbidity, and a 11-19% risk of maternal cardiac event for which recommend consultation with heart team for baseline echocardiogram, clinical assessments every trimester, and delivery at a level II or higher maternal care center. Summary of Recommendations: Ms. Lisa Cardenas has a condition that would make a higher risk for maternal and complications. If, with an understanding of the risks (detailed above), she decides to pursue , the following are recommendations to decrease the chances and severity of complications: Recommendations during - TIMBER FRAMER referral for multi-disciplinary care coordination - Baseline maternal echo with repeat as indicated based on symptoms - Close monitoring of any new cardiac symptoms during - Targeted ultrasound at 18-20 weeks gestation - Echocardiogram at 22-24w gestation - Delivery at a level II or higher maternal care center While there are risks and the decision of whether to pursue is a personal and complex one, she has no absolute contraindications to . I ordered the patient a vitamin which I recommend the patient start at least 2 to 3 months prior to attempts to start conceiving for the benefit of folic acid supplementation (400mcg) to prevent NTD. I counseled the patient on avoidance of tobacco or alcohol use while attempting to conceive. I discussed with the patient that she would be appropriate for co-managed care with [facility] for ultrasounds and visits every trimester and that she should contact and establish care obstetrical care with [facility] general makeup artistry instructor practice once has a positive test. Thank you for involving us in the care of this patient. Please feel free to contact us with any further questions. Discussed with and seen with Dr. Damon Bardales MD Fellow, Maternal- Medicine The patient was seen and evaluated today along with the MFM Fellow. I agree with the assessment and plan of care as per the fellow's note. Belle Jose DO Department of Obstetrics and Gynecology Division of Maternal Medicine [facility] documented in this encounter [facility] 06-05-2021 Instructions Charlotte Cárdenas MD - 06/05/2021 11:42 AM EDT ASSESSMENT/PLAN: Status post tonsillectomy Healing well Pathology benign Followup as needed documented in this encounter [facility] 06-05-2021 History of Present illness Narrative POSTOPERATIVE VISIT NOTE: Chief Complaint Patient presents with Post Op Visit TONSILLECTOMY - Bilateral with Charlotte Cárdenas MD on 05/10/2021, pt did have some bleeding post op, doing well now, some tenderness to surgical site. SUBJECTIVE: 26 y.o. female s/p tonsillectomy. Doing much better s/p return to OR for right tonsil hemorrhage. OBJECTIVE: not currently . Physical Exam not currently . General: Well-developed, well-nourished, no apparent distress Communication and Voice: Clear pitch and clarity Neuro/Psych/Balance: Patient oriented to person, place, and time. Appropriate mood and affect. Gait is intact with no imbalance. Head and Face: Normocephalic and atraumatic without mass or lesions. Oral Cavity: Mucosa pink and moist. Good dental hygiene. No lesions seen or palpated. Oropharynx: Mucosa pink and moist. Tonsils absent with expected fibrinous eschar and granulation . No bleeding or clot formation . No posterior pharynx lymphoid hyperplasia. No lesions seen or palpated. Pathologic Diagnosis A. Bilateral tonsils: Follicular Lymphoid Hyperplasia. ASSESSMENT/PLAN: Status post tonsillectomy Healing well Pathology benign Followup as needed documented in this encounter [facility] Evaluation note Diagnosis Postop check- Primary Follow-up examination, following unspecified surgery [facility] Encounter for preconception consultation- Primary Bicuspid aortic valve Congenital insufficiency of aortic valve [facility] Diagnosis Lymphadenopathy- Primary Enlargement of lymph nodes [facility] Diagnosis Lymphadenopathy Enlargement of lymph nodes [facility] Lymphadenopathy Enlargement of lymph nodes [facility] Diagnosis Thyroid nodule Nontoxic uninodular goiter [facility] Diagnosis Thyroid nodule- Primary Nontoxic uninodular goiter [facility]* Attachments The following attachments cannot be sent through Care Everywhere. * [facility] AMB SMOKING CESSATION LINKS [facility] Reason for Referral Status Reason Specialty Diagnoses / Procedures Referred By Contact Referred To Contact New Request Diagnoses Other fatigue Lymphadenopathy of head and neck Procedures US NECK SOFT TISSUE Darryn Dow, CHIEF CLINICAL OFFICER [address] [address] Specialty Diagnoses / Procedures Referred By Emanuel t Referred To Contact Diagnoses Lymphadenopathy Procedures XR FLUORO MODIFIED BARIUM SWALLOW-ENT ONLY CHG RADIOLOGIC EXAM ESOPHAGUS SINGLE CONTRAST STUDY Regan Schaeffer WATCH DIAL MAKER-CHIEF CLINICAL OFFICER [address] [place] [address] Referral ID Status Reason Start Date Expiration Date V isits Requested Visits Authorized [id number] Auth Not Needed 12/24/2022 01/18/2024 1 1 Specialty Diagnoses / Procedures Referred By Contac t Referred To Contact Diagnoses Lymphadenopathy Regan Schaeffer WATCH DIAL MAKER-CHIEF CLINICAL OFFICER [address] [place] [address] Referral ID Status Reason Start Date Expiration Date V isits Requested Visits Authorized [id number] Pending Review 12/24/2022 01/18/2024 1 1 Specialty Diagnoses / Procedures Referred By Contac t Referred To Contact Diagnoses Lymphadenopathy Procedures CT NECK WITH CONTRAST NV CT NECK TISSUE CONTRAST Regan Schaeffer WATCH DIAL MAKER-CHIEF CLINICAL OFFICER [address] [place] [address] Referral ID Status Reason Start Date Expiration Date Visits Re quested Visits Authorized [id number] Closed 12/24/2022 01/18/2024 1 1 Referral ID Status Reason Start Date Expiration Date Visits Re quested Visits Authorized [id number] Closed 12/24/2022 01/18/2024 1 1 Specialty Diagnoses / Procedures Referred By Contac t Referred To Contact Diagnoses Thyroid nodule Procedures US THYROID NV US,HEAD/NECK TISSUES,REAL TIME Herve Will MD [address] [place] [address] [facility] [address] [place] [address] Referral ID Status Reason Start Date Expiration Date V isits Requested Visits Authorized [id number] New Request 05/27/2023 06/20/2024 1 1 Specialty Diagnoses / Procedures Referred By Contac t Referred To Contact Diagnoses Thyroid nodule Procedures US [facility] Andres Torres MD [address] [facility] [address] [place] [address] Referral ID Status Reason Start Date Expiration Date V isits Requested Visits Authorized [id number] New Request 09/22/2023 10/16/2024 1 1 Assessments Diagnosis Other fatigue Lymphadenopathy of head and neck Summary Purpose Family History No Family History Records FoundNo Family History Records FoundNo Family History Records FoundNo Family History Records FoundNo Family History Records FoundNo Family History Records FoundNo Family History Records Found Advance Directives No Advanced Directives Records FoundLatest Code Status on File Code Status Date Activated Date Inactivated Comments Full Code 05/10/2021 7:16 AM Latest Code Status on File Code Status Date Activated Date Inactivated Comments Full Code 05/10/2021 7:16 AM Latest Code Status on File Code Status Date Activated Date Inactivated Comments Full Code 05/10/2021 7:16 AM Date Activated Date Inactivated Comments 05/10/2021 7:16 AM Additional Source Comments INFORMATION SOURCE (unrecogn ized section and content) DATE CREATED AUTHOR 08/07/2020 [facility] DATE CREATED AUTHOR AUTHOR'S ORGANIZ ATION 05/28/2022 [facility] DATE CREATED AUTHOR AUTHOR'S ORGANIZ ATION 05/24/2023 [facility] DATE CREATED AUTHOR AUTHOR'S ORGANIZ ATION 06/24/2023 [facility] DATE CREATED AUTHOR AUTHOR'S ORGANIZ ATION 07/04/2023 [facility] DATE CREATED AUTHOR AUTHOR'S ORGANIZ ATION 09/02/2023 [facility] EPIC DATE CREATED AUTHOR AUTHOR'S ORGANIZ ATION 09/26/2023 [facility] Reason for Visit (unrecogniz ed section and content) Reason Comments Post Op Visit TONSILLECTOMY - Bila teral with Charlotte Cárdenas MD on 05/10/2021, pt did have some bleeding post op, doing well now, some tenderness to surgical site. Specialty Diagnoses / Procedures Referred By Emanuel rodriguez Referred To Contact Diagnoses Bicuspid aortic valve Congenital heart disease Procedures MRI ANGIO CHEST WITH AND WITHOUT CONTRAST MRA W/O FOL W/CONT, CHEST Chepe Peraza MD [address] [place] [address] [facility] [address] [place] [address] Referral ID Status Reason Start Date Expiration Date V isits Requested Visits Authorized [id number] Auth Not Needed 05/29/2022 06/23/2023 1 1 Reason Comments Problem Reason Comments New Patient Reports right side o f neck with questionable swelling, continues to have problems with food getting stuck. Has to wash down food with liquids. Specialty Diagnoses / Procedures Referred By Emanuel rodriguez Referred To Contact Otolaryngology Diagnoses SCOPE. Pt saw Dr Armas in 11/2018. And he told her if anything comes up let him know. She is having neck swelling on the right and it feels like their are 2 hard knot on her neck. Procedures NEW PATIENT W/ SCOPE Self, Self Emile Armas MD [address] [place] [address] Referral ID Status Reason Start Date Expiration Date Visits Re quested Visits Authorized [id number] Closed 12/24/2022 01/18/2024 1 1 Specialty Diagnoses / Procedures Referred By Emanuel rodriguez Referred To Contact Diagnoses Lymphadenopathy Procedures CT NECK WITH CONTRAST NV CT NECK TISSUE CONTRAST Regan Schaeffer, WATCH DIAL MAKER-CHIEF CLINICAL OFFICER [address] [place] [address] Referral ID Status Reason Start Date Expiration Date Visits Re quested Visits Authorized [id number] Closed 12/24/2022 01/18/2024 1 1 Specialty Diagnoses / Procedures Referred By Contac t Referred To Contact Diagnoses Lymphadenopathy Procedures XR FLUORO MODIFIED BARIUM SWALLOW-ENT ONLY CHG RADIOLOGIC EXAM ESOPHAGUS SINGLE CONTRAST STUDY Regan Schaeffer, WATCH DIAL MAKER-CHIEF CLINICAL OFFICER [address] [place] [address] Referral ID Status Reason Start Date Expiration Date Visits Re quested Visits Authorized [id number] Closed 12/24/2022 01/18/2024 1 1 Specialty Diagnoses / Procedures Referred By Contac t Referred To Contact Diagnoses Thyroid nodule Procedures US THYROID NV US,HEAD/NECK TISSUES,REAL TIME Herve Will MD [address] [place] [address] [facility] [address] [place] [address] Referral ID Status Reason Start Date Expiration Date V isits Requested Visits Authorized [id number] New Request 05/27/2023 06/20/2024 1 1 Reason Comments Thyroid Nodule Specialty Diagnoses / Procedures Referred By Contac t Referred To Contact Endocrinology, Diabetes & Metabolism Diagnoses Thyroid nodule Regan Schaeffer, WATCH DIAL MAKER-CHIEF CLINICAL OFFICER [address] [place] [address] Referral ID Status Reason Start Date Expiration Date V isits Requested Visits Authorized [id number] Pending Review 06/04/2023 06/28/2024 1 1 Care Teams (unrecognized sec tion and content) Delivery Analyst Relationship Specialty Start Date End Date Herve Will MD [address] [place] [address] PCP - General Family Medicine 09/23/19 Chepe Peraza MD [address] [place] [address] [employer] [facility] 04/30/21 Delivery Analyst Relationship Specialty Start Date End Date Herve Will MD [address] [place] [address] PCP - General Family Medicine 09/23/19 Chepe Peraza MD [address] [place] [address] [employer] [facility] 04/30/21 Delivery Analyst Relationship Specialty Start Date End Date Herve Will MD [address] [place] [address] PCP - General Family Medicine 09/23/19 [place] [address] [place] [phone] [employer] Pediatrics 04/30/21 Delivery Analyst Relationship Specialty Start Date End Date Herve Will MD [address] [place] [address] PCP - General Family Medicine 09/23/19 Chepe Peraza MD [address] [place] [address] [employer] Pediatric[facility] 04/30/21 Delivery Analyst Relationship Specialty Start Date End Date Herve Will MD [address] [place] [address] PCP - General Family Medicine 09/23/19 Chepe Peraza MD [address] [place] [phone] [employer] [facility] 04/30/21 Delivery Analyst Relationship Specialty Start Date End Date Herve Will MD [address] [place] [address] PCP - General Family Medicine 09/23/19 Chepe Peraza MD [address] [place] [address] [employer] Pediatric[facility] 04/30/21 Delivery Analyst Relationship Specialty Start Date End Date Herve Will MD [address] [place] [address] PCP - General Family Medicine 09/23/19 Chepe Peraza MD [address] [place] [address] [employer] Pediatrics 04/30/21 Delivery Analyst Relationship Specialty Start Date End Date Herve Will MD [address] [place] [address] PCP - General [facility] Medicine 09/23/19 Chepe Peraza MD [address] [place] [address] [employer] Pediatrics 04/30/21 FOR RECORDS PERTAINING TO PATIENTS WHO ARE OR HAVE BEEN ENROLLED IN A CHEMICAL DEPENDENCY/SUBSTANCEABUSE PROGRAM, SOME INFORMATION MAY BE OMITTED. This clinical summary was aggregated from multiple sources. Caution should be exercised in using it in the provision of clinical care. This summary normalizes information from multiple sources, and as a consequence, information in this document may materially change the coding, format and clinical context of patient data. In addition, data may be omitted in some cases. CLINICAL DECISIONS SHOULD BE BASED ON THE PRIMARY CLINICAL RECORDS. [facility] provides no warranty or guarantee of the accuracy or completeness of information in this document.
[2023-10-04 14:11] LABS: Age Gdln ACOG Testing Note (.); IGP, rfx Aptima HPV ASCU Note (.)
== END 2023-09-30 19:23 | disposition home or self-care (01) ==
LOC: LAB 19:22
PROVIDERS: Visit Provider Physician Assistant
DX: Z01.419 Encounter for gynecological examination (general) (routine) without abnormal findings (principal)
CPT/HCPCS: 88175

== ENCOUNTER 2023-11-14 14:37 | Observation (INO) | payer OTHER, SELFPAY ==
--- OUTSIDE RECORDS SUMMARY | 2023-11-14 15:02 | XMS_ITS | CCD ---
Author Organization [facility] Care Team Providers Care Lens Blank Gauger Name Role Phone Unavailable Unavailable Unavailable Herve Will MD Primary Care Provider Chepe Peraza MD Unavailable Herve Will MD Primary Care Unavail able Cristian DORADO, Jake Og Attending UnavailHerve Chiang MD Primary Care Unavail swathi Foster MD, Jake Og Attending Unavailvero Foster MD, Jake Og Attending UnavailHerve Chiang MD Primary Care Unavail able Herve Will MD Primary Care Provider Chepe Peraza MD Unavailable Herve Will MD Primary Care Provider HERVE WILL Attending Unavailable Chepe Peraza MD Unavailable [phone] DARRYN DOW Primary Care Unavailable DU PHILIP Referring Unavailable LATRICE GLOVER Attending Unavailable HERVE WILL Primary Care Unavailable REGAN SCHAEFFER Referring Unavailable BARBARA HERVE J Primary Care Unavailable SELF, SELF Referring Unavailable ANATOLIY JOSEANDA K Admitting Unavailable ANATOLIY JOSEANDA K Attending Unavailable SELF, SELF Referring Unavailable RAUDEL ARMASER Attending Unavailable BARBARA HERVE J Primary Care Unavailable REGAN SCHAEFFER Attending Unavailable REGAN SCHAEFFER Referring Unavailable BARBARA HERVE J Primary Care Unavailable BARBARA HERVE J Primary Care Unavailable REGAN SCHAEFFER Referring Unavailable SYLVAINERRAUDELER Attending Unavailable NEIL ARMAS Attending Unavailable SELF, SELF Referring Unavailable KRISTA WILLGAIL J Primary Care Unavailable REGAN SCHAEFFER Referring Unavailable OZER, ENVER Attending Unavailable SHOLAN HERVE Meli Primary Care Unavailable HERVE WILL Attending Unavailable BARBARA HERVE J Referring Unavailable BARBARA HERVE J Primary Care Unavailable CHEPE PERAZA Attending Unavailable GEOVANNY PANCHAL Attending Unavailable RICKY PHAM Attending Unavailable ELLA LEWIS Attending Unavailable RICKY PHAM Attending Unavailable RICKY PHAM Referring Unavailable BARBARA HERVE JO Primary Care Unavailabl e DUARTE BERNARD Attending Unavailable THERESE GLEASON Referring Unavailable BARBARA HERVE KENYA Primary Care Unavailabl CHEPE Coy Referring Unavailable BARBARA HERVE JO Primary Care Unavailabl e Allergies Allergy Classification Reported Allergen(s) Allergy Type Date of Onset Reaction(s) Facility Doxycycline (1 source) Doxycycline; Translations: [DOXYCYCLINE] Drug Allergy 3 [facility] Repository Lincomycin (1 source) Lincomycin; Translations: [LINCOMYCIN] Drug Allergy 5 [facility] Repository Lincosamides (antibiotic) (1 source) Clindamycin; Translations: [CLINDAMYCIN] Drug Allergy 8 [facility] Repository Macrolides (antibiotic) (2 sources) Erythromycin; Translations: [ERYTHROMYCIN] Drug Allergy 3 [facility] Repository Penicillins (antibiotic) (1 source) Amoxicillin; Translations: [AMOXICILLIN] Drug Allergy 3 [facility] Repository Spironolactone (1 source) Spironolactone; Translations: [SPIRONOLACTONE] Drug Allergy 4 [facility] Repository (13 sources) Amoxicillin; Translations: [amoxicillin] Drug Allergy 8 [facility] Work Phone: (7 sources) Clarithromycin; Translations: [clarithromycin] Drug Allergy 8 [facility] Work Phone: (12 sources) Clindamycin; Translations: [clindamycin] Drug Allergy 8 [facility] Work Phone: (13 sources) Doxycycline; Translations: [doxycycline] Drug Allergy 8 [facility] Work Phone: (6 sources) Clarithromycin Propensity to adverse reactions to drug 8 Rash [facility] Work Phone: (1 source) Erythromycin; Translations: [ERYTHROMYCIN] Drug Allergy 4 [facility] Repository (1 source) Spironolactone; Translations: [SPIRONOLACTONE] Drug Allergy 4 [facility] Repository Medications Current Medications Medication Drug Class(es) Dates [...] 0 05/22/2021 Active lidocaine viscous-Alum & Mag Atxguqbbh-Sigzyv-fxirfhpnmcWDJSH oral mouthwash (8 sources) Start: 05-22-2021 take 15 mL by mouth every six hours as needed lidocaine viscous-Alum & Mag Pwnyvptwa-Qhacsb-fdurkemfojTJDRI oral mouthwash Swish and swallow 15mL by mouth every 6 hours as needed. 240 mL 05/22/2021 Active Start: 05-22-2021 take 15 mL by mouth every six hours as needed lidocaine viscous-Alum & Mag Bpnbhehda-Wdettx-xqmdizwgusLRKPZ oral mouthwash Swish and swallow 15mL by mouth every 6 hours as needed. 240 mL 0 05/22/2021 Active nystatin [id number] unt/ml oral suspension (8 sources) Polyene Antifungal Start: 05-16-2021 take 10 mL by mouth four times daily nystatin [id number] UNIT/ML oral suspension Swish and swallow 10 [...] [Encounter for pre-employment examination] Onset: 06-20-2023 Episodic Aortic; peripheral; and visceral artery aneurysms (3 sources) Aortic ectasia, unspecified site; Translations: [Aortic ectasia, unspecified site] Onset: 10-07-2023 Chronic Asthma (6 sources) Asthma; Translations: [Unspecified asthma, uncomplicated] Onset: 11-20-2022 11-20-2022 Chronic Cardiac and circulatory congenital anomalies (7 sources) Bicuspid aortic valve; Translations: [Congenital insufficiency of aortic valve] Onset: 11-20-2022 11-20-2022 Chronic Malaise and fatigue (1 source) Fatigue; Translations: [Other fatigue] Episodic Other aftercare (1 source) Surgical follow-up; Translations: [Encounter for follow-up examination after completed treatment for conditions other than malignant neoplasm] Episodic Other complications of (1 source) Abnormal ultrasonic finding on screening of mother; Translations: [Abnormal ultrasonic finding on screening of mother] Onset: 10-20-2023 Episodic Other complications of (1 source) Supervision of high risk , unspecified, unspecified trimester; Translations: [Supervision of high risk , unspecified, unspecified trimester] Onset: 10-20-2023 Episodic Other screening for suspected conditions (not mental disorders or infectious disease) (3 sources) Encounter for other specified screening; Translations: [Encounter for screening for congenital cardiac abnormalities] Onset: 10-20-2023 Episodic Thyroid disorders (12 sources) Thyroid nodule; Translations: [Nontoxic single thyroid nodule] Onset: 11-20-2022 11-20-2022 Chronic Unclassified (1 source) Maternal care for (suspected) central nervous system malformation or damage in fetus, choroid plexus cysts, not applicable or unspecified; Translations: [Maternal care for (suspected) central nervous system malformation or damage in fetus, choroid plexus cysts, not applicable or unspecified] Onset: 10-20-2023 Unclassified (1 source) Maternal Bicuspid Aortic Valve Onset: 10-20-2023 Past or Other Problems Problem Classification Problem [...] Test Name Value Interpretation Reference Range Facility Office Visiton 10-07-2023 Follow-up visit [id number] Lisa Levy 1995 F Date Provider Department Center 10/07/2023 CHEPE GOODSONanabel No family history on file Level of Service:[id number] ID OFFICE/OUTPATIENT ESTABLISHED MOD MDM 30 MIN Reason for Visit and Comments: Heart Problem [54] - Transfer from [facility] - 18 wks Normal [facility] US SOFT TISSUE HEAD & NE CK REAL TIME IMGE DOCMon 09-23-2023 Radiology Study observation (narrative) [facility] US SOFT TISSUE HEAD & NE CK REAL TIME IMGE DOCMon 09-22-2023 Andres Torres MD 09/23/2023 6:28 PM Ms. Levy was seen and examined with Dr. Glover, I independently verified the findings on US and agree with the documented report - thyroid ultrasound report appears in the notes tab. [facility] US Unspecified body regionOr dered By: Unassigned Pacs [facility] US Unspecified body regionon 09-22-2023 Radiology Study observation (narrative) [facility] 36on 07-04-2023 36 Created in error Normal [facility] 36 Scheduled an appointment October 06 at 8:30am. [facility] 36 If this patient schedules a follow-up [...] her and left her message as well. [facility] 36on 07-03-2023 36 Patient is newly (4wks) and is currently scheduled in August for her yearly visit.. She is asking if she needs to reschedule to do the 20-24 wk gestational testing. PH: [phone] [facility] Telephoneon 07-03-2023 Telephone [id number] Lisa Peña 1995 F Date Provider Department Center 07/03/2023 [id number]-FFEERRAMIRO MONTALVO PED [employer] No family history on file [facility] VZ Immunityon 06-23-2023 VZ Immunity 3.84 Normal >1.09 [facility] Comment on above: Result Comment: Interpretation: IMMUNE Reference Range: <0.91 Not Immune 0.91-1.09 Equivocal >1.09 Immune Performed By: #### V ZI #### [employer] [address] [place] [address] Automation Qtp Tester: Bear Mejias MD US THYROIDon 06-03-2023 US [...] Echogenicity: Hyperechoic or isoechoic (1 point) Shape: Vlarb-dpgf-sbcv (0 points) Margin: Smooth (0 points) Echogenic [...] using ACR TI-RADS. (JACR July 2016) Normal [facility] FREE T4on 05-23-2023 Free T4 [Mass/Vol] 1.0 ng/dL Normal 0.9-1.8 [facility] Comment on above: Order Comment: Locat ion: Performed By: #### L 127, [id number] #### ANIL SAUER ([id number]) [facility] ([facility]) [address] [facility], [facility] [address] [place] [id number] TSHon 05-23-2023 TSH 2.599 MIU/mL Normal 0.550-4.780 [facility] Comment on above: Order Comment: Locat ion: Performed By: #### L 127, CYP139 #### ANIL SAUER ([id number]) [facility] ([facility]) [address] [facility], [address] [place] [address] RF videography Hypopharynx a nd Esophagus Views [...] report for further details and dietary recommendations. [facility] Radiology Study observation (narrative) [facility] RF videography Hypopharynx a nd Esophagus Views W liquid and paste contrast PO during swallowingOrdered By: Gisele Hardy on 01-09-2023 [facility] Work Phone: XR FLUORO MODIFIED BARIUM [...] for further details and dietary recommendations. Normal [facility] CT NECK WITH CONTRASTon 10- CT NECK WITH CONTRAST EXAM: CT NECK [...] error, please notify the sender immediately at [phone] and permanently delete the original report and destroy any copies or printouts. Normal [facility] [employer] Cytology Reporton 2022 Computer [employer] Drafter Cytology Report Clinical Information Specimen Collection Date: [...] FOR INTRAEPITHELIAL LESION OR MALIGNANCY. Completed by: Luan P Yarc[place]ko, CT (ASCP) (Electronically signed by) 05/28/22 14:16 EDT GY Disclaimer Interp The PAP smear is a screening test with an inherent, but low, probability of error. A negative report indicates a low probability of significant cervical pathology. Your patient should be reminded to consult you immediately if she experiences new symptoms and to continue having regular PAP smears in the future. 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 Patient reports some pain [...] and the last time she saw her fashion consultant selling thought there might have been some dilation [...] will send patient for preconceptual counseling with [facility] because of her cardiac abnormality Follow-up 1 [...] intractable, w/o (more content not included)... Normal [facility] Culture, Urineon 08-04-2020 RPT Microbiology results Abnormal [facility] Comment on above: Order Comment: Items in this order include: Culture, Urine Testing Performed By: [facility] [address] [place] [address] [place] [address] Dr. Anil Sauer, Automation Qtp Tester Result Comment: Noti ny Count: 10,000-25,000 CFU/ML Final Result: Escherichia [...] R Performed By: #### C 734 #### [facility] [address] [facility] [address] [place] [address] Culture, Urineon 03-14-2020 RPT Microbiology results Abnormal [facility] Comment on above: Order Comment: Items in this order include: Culture, Urine Testing Performed By: [facility] [address] [place] [address]. [place] [address] Dr. Shaunna Cummins, Automation Qtp Tester Result Comment: Noti ny Count: >100,000 CFU/ML Final Result: Escherichia [...] R Performed By: #### C 734 #### [facility] [address] [place] [address] Culture, Urineon 12-14-2019 RPT Microbiology results Abnormal [facility] Comment on above: Order Comment: Items in this order include: Culture, Urine Testing Performed By: [facility] [address] [facility] [place] [address] Dr. Shaunna Cummins, Automation Qtp Tester Result Comment: Noti ny Count: 50,000-75,000 CFU/ML Final Result: Escherichia [...] R Performed By: #### C 734 #### [facility] [facility] [facility] [address] [place] [address] Vital Signs Date Time Vital Sign Value Performing Clinician Faci keith 09-22-2023 13:37-0400 Body height 162.6 cm Latrice Glover MD Work Phone: [facility] 09-22-2023 13:37-0400 Body mass index (BMI) [Ratio] 25.4 kg/m2 Latrice Glover MD Work Phone: [facility] 09-22-2023 13:37-0400 Body temperature 97.3 [degF] Latrice Glover MD Work Phone: [facility] 09-22-2023 13:37-0400 Body weight 67.13 kg Latrice Glover MD Work Phone: [facility] 09-22-2023 13:37-0400 Diastolic blood pressure 62 mm[Hg] Latrice Glover MD Work Phone: [facility] 09-22-2023 13:37-0400 Systolic blood pressure 114 mm[Hg] Latrice Glover MD Work Phone: [facility] 12-24-2022 16:30-0400 Body height 162.6 cm Regan LATHAM Work Phone: [facility] 12-24-2022 16:30-0400 Body mass index (BMI) [Ratio] 23.17 kg/m2 Regan Schaeffer VECTOR CONTROL ASSISTANT-REFINERY OPERATOR ASSISTANT Work Phone: [facility] 12-24-2022 16:30-0400 Body weight 61.24 kg Regan Schaeffer VECTOR CONTROL ASSISTANT-REFINERY OPERATOR ASSISTANT Work Phone: [facility] 12-24-2022 16:30-0400 Diastolic blood pressure 68 mm[Hg] Regan Schaeffer VECTOR CONTROL ASSISTANT-REFINERY OPERATOR ASSISTANT Work Phone: [facility] 12-24-2022 16:30-0400 Heart rate 71 /min Regan Schaeffer VECTOR CONTROL ASSISTANT-REFINERY OPERATOR ASSISTANT Work Phone: [facility] 12-24-2022 16:30-0400 Systolic blood pressure 108 mm[Hg] Regan Schaeffer VECTOR CONTROL ASSISTANT-REFINERY OPERATOR ASSISTANT Work Phone: [facility] 12-24-2022 11:37-0400 Body mass index (BMI) [Ratio] 23.22 kg/m2 Neil Armas MD Work Phone: [facility] 12-24-2022 11:37-0400 Body temperature 98.2 [degF] Neil Armas MD Work Phone: [facility] 12-24-2022 11:37-0400 Body weight 61.37 kg Neil Armas MD Work Phone: [facility] 12-24-2022 11:37-0400 Diastolic blood pressure 78 mm[Hg] Neil Armas MD Work Phone: [facility] 12-24-2022 11:37-0400 Heart rate 73 /min Neil Armas MD Work Phone: [facility] 12-24-2022 11:37-0400 Respiratory rate 16 /min Neil Armas MD Work Phone: [facility] 12-24-2022 11:37-0400 SaO2% (BldA) [Mass fraction] 99 % Neil Armas MD Work Phone: [facility] 12-24-2022 11:37-0400 Systolic blood pressure 123 mm[Hg] Neil Armas MD Work Phone: [facility] Encounters Encounter Date Encounter Type Care Provider Facility Start: 10-31-2023 End: 10-31-2023 ambulatory [facility] Start: 10-30-2023 End: 10-30-2023 ambulatory RICKY ANKIT Not Available Start: 10-20-2023 End: 10-20-2023 ambulatory [facility] R [facility] Start: 10-07-2023 End: 10-07-2023 ambulatory [facility] Start: 09-30-2023 End: 09-30-2023 ambulatory ELLA LEWIS Not Available Start: 09-22-2023 End: 09-22-2023 Office outpatient new 45 minutes Latrice Glover MD Work Phone: Endocrinology [facility] Comment on above: Thyroid nodule (Prim subhash Dx) Start: 09-22-2023 ambulatory LATRICE GLOVER Facilit y:[facility] Start: 09-01-2023 End: 09-01-2023 ambulatory RICKY ANKIT Not Available Start: 07-31-2023 End: 07-31-2023 ambulatory GEOVANNY ABDULKADIR Not Available Start: 06-20-2023 End: 06-21-2023 ambulatory [facility] Start: 06-02-2023 ambulatory HERVE WILL Fac ility:[facility] Start: 06-02-2023 End: 06-02-2023 Subsequent hospital visit by physician Herve Will MD Work Phone: Department of Radiology Comment on above: Arrived Start: 05-27-2023 End: 05-27-2023 ambulatory GEOVANNY PANCHAL Not Available Start: 05-23-2023 End: 05-23-2023 ambulatory HERVE WILL [facility] Start: 01-09-2023 End: 01-09-2023 Subsequent hospital visit by physician Neil Armas MD Work Phone: Department of Radiology Comment on above: Arrived Start: 01-09-2023 ambulatory HERVE Benavides ility:[facility] Start: 12-24-2022 End: 12-24-2022 Subsequent hospital visit by physician Regan Schaeffer VECTOR CONTROL ASSISTANT-REFINERY OPERATOR ASSISTANT Work Phone: [facility] [place] Comment on above: Arrived Start: 12-24-2022 ambulatory REGAN SCHAEFFER Facilit y:[facility] Start: 12-24-2022 End: 12-24-2022 Office outpatient new 45 minutes Neil Armas MD Work Phone: Department of Otolaryngology Comment on above: Lymphadenopathy (Alicia ramin Dx) Start: 12-24-2022 ambulatory SELF SELF Facility:[facility] Start: 11-20-2022 End: 11-20-2022 Office consultation new/estab patient 60 min Belle Jose DO Work Phone: [facility] [place] Comment on above: Encounter for precon ception consultation (Primary Dx); Bicuspid aortic valve Start: 11-20-2022 ambulatory HERVE Benavides ility:[facility] Start: 08-15-2022 End: 08-15-2022 Subsequent hospital visit by physician Chepe Peraza MD Work Phone: Cardiovascular Imaging [facility] Comment on above: Canceled (Cancel Ligia son Not Listed - Please provide detailed information) Start: 05-21-2022 End: 05-22-2022 ambulatory Jake Foster MD Facility:[facility] Start: 06-05-2021 End: 06-05-2021 Postop follow up visit related to original px Charlotte Cárdenas MD Work Phone: [facility] Comment on above: Postop check (Primar y [...] exam esop hagus single contrast study Regan M Edinson VECTOR CONTROL ASSISTANT-REFINERY OPERATOR ASSISTANT Work Phone: Plan of Treatment Date Care Activity Detail Author Start: 11-09-2023 Influenza vaccination INFLUENZA VACC INE (#1) [facility] Start: 06-03-2023 ambulatory Ambulatory Facility:Elias CARMEN [facility] [place] Start: 01-09-2023 End: 01-09-2023 ambulatory 01/09/2023 8:30 AM EDT Rehab Services Visit [facility] [address] [place] [id number] [facility] Start: 01-09-2023 End: 01-09-2023 Patient encounter procedure 01/09/2023 8:30 AM EDT Appointment Department of Radiology [address] [place] [address] Department of Radiology Start: 12-24-2022 End: 12-25-2023 CT Neck W contrast IV [facility] Comment on above: Expected: 12/24/2022 , Expires: 12/25/2023 1 Occurrences starti ng 12/24/2022 until 12/24/2022 Start: 12-24-2022 End: 12-25-2023 RF videography Hypopharynx and Esophagus Views W liquid and paste contrast PO during swallowing XR FLUORO MODIFIED BARIUM SWALLOW-ENT ONLY Imaging Routine Lymphadenopathy Expected: 12/24/2022, Expires: 12/25/2023 [facility] Comment on above: Expected: 12/24/2022 , Expires: 12/25/2023 Start: 11-08-2022 COVID-19 VACCINE (2022- season) COVID-19 VACCINE ( season) [facility] Start: 11-08-2022 Influenza vaccination O [facility] Start: 11-08-2020 Influenza vaccination INFLUENZA VACC INE (#1) [facility] Start: 03-27-2018 End: 03-27-2018 Ambulatory 03/27/2018 Appointment Ultrasound Darryn Dow, REFINERY OPERATOR ASSISTANT [address] [place] [address] [phone] Department of Radiology Start: 03-18-2018 End: 03-18-2019 US scan of neck US NECK SOFT TISSUE Routine Other fatigue Lymphadenopathy of head and neck Expected: 03/18/2018, Expires: 03/18/2019 [facility] Work Phone: Comment on above: Expected: 03/18/2018 , Expires: 03/18/2019 Start: 11-08-2017 Influenza vaccination INFLUENZA VACC INE (#1) [facility] Work Phone: Start: 2015 Screening for malign ant neoplasm of cervix [facility] Start: 2013 Hepatitis B vaccination HEP B VACCINE (1 of 3 - 19+ 3-dose series) [facility] Start: 2013 Third diphtheria, tetanus and acellular pertussis (DTaP) vaccination TDAP (ADULT) [facility] Start: 02-04-2012 GONORRHEA SCREEN GONORRHEA SCREEN [facility] Work Phone: Start: 02-04-2012 Tetanus vaccination TETANUS [facility] Start: 2010 Screening for Chlamy kyle trachomatis CHLAMYDIA SCREEN [facility] Work Phone: Start: 2009 HIV screening HIV SCREENING DISCUSSI ON [facility] Start: 2007 HIV screening HIV SCREENING DISCUSSI ON [facility] Work Phone: Start: 03-13-2005 Tetanus vaccination TETANUS [facility] Start: 2005 Vaccination for jelly n papillomavirus HPV VACCINE ADOL (1 - Female 3-dose series) [facility] Work Phone: Start: 02-04-2000 PNEUMOCOCCAL VACCINE SERIES (1 of 2 - PCV) PNEUMOCOCCAL VACCINE SERIES (1 of 2 - PCV) [facility] Start: 1999 COVID-19 VACCINE (1) COVID-19 VACCIN E (1) [facility] Start: 1994 COVID-19 VACCINE (#1) COVID-19 VACCI NE (#1) [facility] Start: 1994 Hepatitis C antibody , confirmatory test HEPATITIS C VIRUS SCREENING [facility] Start: 1994 Hepatitis C screening HEPATITI S C VIRUS SCREENING [facility] Laryngoscopy flexibl e diagnostic ID LARYNGOSCOPY FLEXIBLE DIAGNOSTIC ID Charge Routine Lymphadenopathy Ordered: 12/24/2022 [facility] Comment on above: Ordered: 12/24/2022 End: 06-02-2023 US Thyroid gland [facility] Work Phone: Comment on above: 1 Occurrences starti ng 06/02/2023 until 06/02/2023 Immunizations Immunization Date Immunization Notes Care Provider Sandrine oviedo 12-25-2022 influenza virus vaccine, unspecified formulation Latrice Glover MD Work Phone: [facility] 01-08-2016 influenza virus vaccine, unspecified formulation Charlotte Cárdenas MD Work Phone: [facility] Payers Date Payer Category Payer Unknown [id number] 2023 Private Health Insurance [employer] Vero ETNA [id number] 2023-Present [address] [place] [address] [id number] 2023 Private Health Insurance [id number] 2021 Unknown [id number] 2020 Unknown [id number] [id number]. [id number] 2020 Unknown [id number] 1994 Unknown [id number] 2.16.840.1.914706.3.579.2. 196 1994 Unknown [id number] 2.16.840.1.185655.3.579.2. 196 1994 Unknown [id number] 2.16.840.1.709359.3.579.2. 196 1994 Unknown [id number] 2.16.840.1.140134.3.579.2. 1260 1994 Unknown [id number] 2.16.840.1.457805.3.579.2. 173 1994 Unknown [id number] 2.16.840.1.650597.3.579.2. 594 1994 Unknown [id number] 2.16.840.1.067235.3.579.2. 594 1994 Unknown [id number] 2.16.840.1.389541.3.579.2. 594 1994 Unknown [id number] 2.16.840.1.139901.3.579.2. 594 1994 Unknown [id number] 2.16.840.1.219277.3.579.2. 594 1994 Unknown [id number] 2.16.840.1.205614.3.579.2. 594 1994 Unknown [id number] 2.16.840.1.424303.3.579.2. 594 1994 Unknown [id number] 2.16.840.1.727851.3.579.2. 594 1994 Unknown [id number] 2.16.840.1.883787.3.579.2. 1259 1994 Unknown [id number] 2.16.840.1.818162.3.579.2. 1259 1994 Unknown [id number] 2.16.840.1.850322.3.579.2. 1259 1994 Unknown [id number] 2.16.840.1.031733.3.579.2. 1259 1994 Unknown [id number] 2.16.840.1.118709.3.579.2. 1259 1994 Unknown [id number] 2.16.840.1.567328.3.579.2. 1286 1994 Unknown [id number] 2.16.840.1.190692.3.579.2. 1286 1994 Unknown [id number] 2.16.840.1.040004.3.579.2. 1286 Social History Date Type Detail Facility Tobacco smoking stat us NHIS Unknown if ever smoked [facility] Work Phone: Start: 1995 Sex Assigned At Not on file O [facility] Work Phone: Start: 04-21-2018 End: 09-22-2023 Tobacco smoking status NHIS Never smoked tobacco [facility] Start: 04-21-2018 End: 09-22-2023 Tobacco use and exposure Smokeless tobacco non-user [facility] Start: 06-05-2021 End: 09-22-2023 Alcohol intake Current drinker of alcohol (finding) [facility] Start: 04-15-2020 History SDOH Alcohol Frequency 2 [facility] Start: 04-15-2020 History SDOH Alcohol Std Drinks 1 [facility] Start: 05-10-2021 History SDOH Alcohol Comment 1-2 drinks per month [facility] Start: 05-26-2021 End: 06-05-2021 Exposure to SARS-CoV-2 (event) Not sure [facility] Start: 04-15-2020 End: 12-24-2022 History of Social function [facility] Start: 04-15-2020 End: 12-24-2022 Alcohol Use Disorder Identification Test - Consumption [AUDIT-C] [facility] How often to you hav e a drink containing alcohol? Monthly or less [facility] How many standard dr inks containing alcohol do you have on a typical day? 1 or 2 [facility] How often do you hav e 6 or more drinks on 1 occasion? Never [facility] Start: 03-16-2017 Gender identity Identifies as female gender (finding) [facility] Adolescent depressio n screening assessment 0 [facility] Start: 1995 Sex assigned at Female O [facility] Clinical Notes 06-05-2021 to 10-07-2023 Latrice Glover MD - 09/22/2023 1:30 PM EDTCdanni Galdamez - 09/22/2023 1:30 PM Magui Torres MD - 09/22/2023 1:30 PM EDRadha Glover MD - 09/22/2023 1:30 PM EDTPatient Instructions Note Date & Type Note Facility 10-07-2023 Note Outpatient echo Must use antibiotic for dental procedures May fly Passive second stage deliver in [facility] 10-07-2023 Note Lonnie Peres [address] [facility] [id number] October 07, 2023 Patient: Lisa Levy Date of : 1995 Date of Visit: 10/07/2023 Dear Herve Will MD: I had the pleasure of seeing Lisa Levy, at our pediatric cardiology clinic on 10/07/2023 for Cardiac follow-up. Lisa is a [age] y.o. female With a history of functionally bicuspid aortic valve and ascending aortic dilation of 38 to 39 mm by both echocardiography and cardiac MRI which was performed last year. She is currently now 18 weeks into her first with an EDC of March 08, 2024. Her first has been followed closely and she has been on her vitamins and had excellent obstetrical care. She has not had any infectious related complications or episodes of vaginal bleeding and she did have a tough first trimester with nausea and she was noted to have some elevation in TSH that prompted some thyroid scans but no intervention has been needed. As far as the is concerned, she has felt good movement and has been doing better with a 20-week scan in the near future. Her has no significant cardiac history or no family history of any congenital heart disease. From a cardiac perspective, she tells me that she has not had any episodes of chest pain or palpitations but there are times when she can get some increasing respiratory rate when active. She does feel fatigued and her legs at times feel more heavy and swollen. She can also have a feeling of heaviness in her upper extremities as well. She has not had any significant dysrhythmias of any concern and she has remained active. From a noncardiac perspective, she is now doing better with nutrition and hydration and she has been getting sleep but has not experienced any vomiting constipation or diarrhea. She has not shown any true signs of edema. She denies any smoking, vaping, alcohol use. She is scheduled to fly to [place] to see her in the near future and I saw no problem with her doing this. Current Outpatient Medications Medication Sig Dispense Refill no115/iron/folic acid ( 19 ORAL) Take by mouth. No current facility-administered medications for this visit. Allergies Allergen Reactions Doxycycline Other Ulcerative esophagus Other Reaction(s): ulcer esophagus ulercative esophagus ulercative esophagus Ulcerative esophagus Other Reaction(s): ulcer esophagus Erythromycin Other Spironolactone Dizziness Amoxicillin Rash and Other As a child Clarithromycin Rash and Unknown Ok to take azithromycin Ok to take azithromycin Clindamycin Other Able to take IV- just had throat ulceration when swallowed pill Other Reaction(s): ulcer esophagus ulcerated esophagus Lincomycin Other and Unknown Ulcerated esophagus Ulcerated esophagus ulcerated esophagus Able to take IV- just had throat ulceration when swallowed pill Other Reaction(s): ulcer esophagus The family history is more otherwise unremarkable for any other forms of congenital heart disease but there are histories of systemic hypertension and hyperlipidemia and multiple family members. There is no history of aortic dissection. Past Surgical History: Procedure Laterality Date MR CHEST ANGIO WO IV CONTRAST 08/15/2022 MR CHEST ANGIO WO IV CONTRAST 08/15/2022 Review of Systems - Respiratory ROS, Gastrointestinal ROS, Genitourinary ROS, Hematologic, Endocrinologic ROS, Musculoskeletal, Immunologic, Infectious ROS, Neurologic ROS are unremarkable. On physical exam the patient was alert, cooperative, acyanotic and in no apparent distress. Vitals: 10/07/23 0845 BP: 107/74 BP Location: Left arm Patient Position: Sitting BP Cuff Size: Adult Pulse: 75 SpO2: 99% Weight: 69.3 kg (152 lb 12.5 oz) Height: 1.681 m (5' 6.18 ) HEENT was normal. Lungs were clear to auscultation. Neck exam demonstrated no JVD or AI. Chest was normal active without thrill. There was a regular rate and rhythm with a normal S1, very easily audible aortic ejection click, and S2 with physiologic splitting of the S2. No murmurs were heard in systole or diastole. Abdominal exam was remarkable for a abdomen with movement. No hepatosplenomegaly. Peripheral extremities demonstrated symmetrical pulses and pulse pressure without BF delay. No clubbing, cyanosis, or edema was seen with normal capillary refill. Skin & joint exam was normal. EKG demonstrated: Normal sinus rhythm at a rate of 71 bpm with normal cardiac intervals and no evidence of atrial or ventricular hypertrophy. 2021 Echocardiogram demonstrated: ??? Bicommissural and bicuspid aortic valve with mild systolic leaflet doming and mild flow acceleration associated with trivial to mild aortic insufficiency. ??? Moderately dilated ascending aorta. ??? Ascending Aorta: 3.76cm (z 5.60) new finding ??? Normal biventricular systoli (more content not included)... [facility] 09-22-2023 History of Present illness Narrative RFC: Patient with thyroid nodule. Most recent US showing nodule TI-RADS 3 Regan Schaeffer, VECTOR CONTROL ASSISTANT-* HPI: Ms. Levy is a 28 y.o. female who has [...] Hyperlipidemia, Hyperthyroidism, Hypogonadism male, Hypothyroidism, Liver disease, MN (myocardial infarction), Migraine, Multinodular goiter, LADY (obstructive [...] hours as needed. lidocaine viscous-Alum & Mag Erzmnaakn-Unqmzo-aczqwfvxnkBQNPU oral mouthwash Swish and swallow 15mL by mouth every 6 hours as needed. norgestimate-ethinyl estradiol (Sprintec 28) 0.25-35 MG-MCG tablet Take 1 tablet by mouth at bedtime. nystatin 515372 UNIT/ML oral suspension Swish and swallow 10 [...] Echogenicity: Hyperechoic or isoechoic (1 point) Shape: Xrhpq-vnnx-lffb (0 points) Margin: Smooth (0 points) Echogenic [...] compared to prior CT study. Assessment: Ms. Levy is a 28 y.o. female here for [...] Fellow, Division of Endocrinology, Diabetes, and Metabolism [facility] at the [facility] [address] No follow-ups on file. Patient has verified full name and . Attending Note: Patient seen, examined, and discussed in clinic with Dr. Glover; I have reviewed her documentation and agree with the history, physical exam, and assessment and plan as stated. Ms. Levy is a 28 y.o. woman with a [...] Fellow, Division of Endocrinology, Diabetes, and Metabolism [facility] at the [facility] [place] [address] documented in this encounter [facility] 09-22-2023 Instructions Latrice Glover MD - 09/22/2023 1:30 PM EDT It was great seeing you today! Division of Endocrinology Outpatient Care [facility] Follow-up appointments: Please arrive at least 20 [...] Any non-urgent results will be relayed via [facility] if you have signed up for this service or via a letter through the mail and/or phone call. Communication with your provider: - [facility] [employer] is highly recommended as the most efficient [...] help perpare you for your future visits: [email or web address] --> Patient Care section. Sincerely, Latrice Glover MD Fellow, Division of Endocrinology, Diabetes, and Metabolism [facility] [place] [address] documented in this encounter [facility] 09-22-2023 Procedure note Associated Ord er(s): CHG US SOFT TISSUE HEAD & NECK REAL TIME IMGE DOCM Ms. Levy was seen and examined with Dr. Glover, I independently verified the findings on US and agree with the documented report - thyroid ultrasound report appears in the notes tab. [facility] 09-22-2023 Procedure note Associated Ord er(s): CHG US SOFT TISSUE HEAD & NECK REAL TIME IMGE DOCM Ms. Levy was seen and examined with Dr. Glover, I independently verified the findings on US and agree with the documented report - thyroid ultrasound report appears in the notes tab. documented in this encounter [facility] 12-24-2022 History of Present illness Narrative Chief Complaint: Chief Complaint Patient presents with New Patient Reports right side of neck with questionable swelling, continues to have problems with food getting stuck. Has to wash down food with liquids. HPI: Lisa Levy is a 27 y.o. female smoker / non-smoker who presents 12/24/22 to the [facility] Head and Neck Surgical Oncology [...] CHOLECYSTECTOMY ROBOTIC N/A 04/06/2019 Laterality: N/A; Surgeon: Ramin Denney MD; [facility] W[facility]DOM TE[facility]TRACTION Social [...] 1 Bottle 0 lidocaine viscous-Alum & Mag Ywmcsfxsn-Usyvgr-ftmxnaewlrPOFSR oral mouthwash Swish and swallow 15mL by mouth every 6 hours as needed. 240 mL 0 norgestimate-ethinyl estradiol (Sprintec 28) 0.25-35 MG-MCG tablet Take 1 tablet by mouth at bedtime. nystatin 602306 UNIT/ML oral suspension Swish and swallow 10 [...] wash down food with liquids. HPI: Lisa Levy is a 27 y.o. female smoker / non-smoker who presents 12/24/22 to the [facility] Head and Neck Surgical Oncology [...] CHOLECYSTECTOMY ROBOTIC N/A 04/06/2019 Laterality: N/A; Surgeon: Ramin Denney MD; [facility] WISDOM TEETH EXTRACTION Social History [...] 1 Bottle 0 lidocaine viscous-Alum & Mag Enemjxesf-Umijdl-pecqwbjnixHJRNJ oral mouthwash Swish and swallow 15mL by mouth every 6 hours as needed. 240 mL 0 norgestimate-ethinyl estradiol (Sprintec 28) 0.25-35 MG-MCG tablet Take 1 tablet by mouth at bedtime. nystatin [id number] UNIT/ML oral suspension Swish and swallow 10 [...] hyperactive gag reflex, inadequate mirror visualization. Surgeon: Neil Armas MD Procedure note/findings: After informed discussion [...] and actively involved throughout the entire procedure. Neil Armas MD Data: CT Neck - 11/30/2018 [...] formulated the medical decision making for Ms. Levy with Regan Schaeffer APRN-TIMMY. Details of my interview, examination findings, and medical decision-making confirmed the findings above. I have personally amended the documentation where appropriate. Doing well based on my examination. Fu/ in PRN if above tests results are not concerning. documented in this encounter [facility] 11-20-2022 History of Present illness Narrative Maternal- Medicine (High Risk Obstetrics) Consultation Indication for consultation: Congenital Bicuspid aortic valve Referring Provider: Herve Will MD History Lisa Levy is a 27yo G0 LMP [id number] using nothing for contraception who presents for preconception consultation in the setting of hx congenital bicuspid aortic valve. Her history is also notable for a history of exercise induced asthma and thyroid nodule. She feels well today and has no complaints or concerns. She was recently seen by Dr. Peraza ([facility]) for preconception counseling on 05/21/2022 at [...] [facility]. She does not currently have an director of assessment. Ms. Lisa Levy has the following problems that will affect [...] CHOLECYSTECTOMY ROBOTIC N/A 04/06/2019 Laterality: N/A; Surgeon: Ramin Denney MD; Location[facility] MAIN OR WISDOM TEETH EXTRACTION - No [...] 1 Bottle 0 lidocaine viscous-Alum & Mag Exujkjbje-Jysunj-kmsnvzlatfQSYNK oral mouthwash Swish and swallow 15mL by mouth every 6 hours as needed. 240 mL 0 norgestimate-ethinyl estradiol (Sprintec 28) 0.25-35 MG-MCG tablet Take 1 tablet by mouth at bedtime. nystatin [id number] UNIT/ML oral suspension Swish and swallow 10 [...] precordial lead. Cardiac MRI/MRA 08/15/2022 FINAL IMPRESSION ======= Bicuspid aortic valve. Dilated ascending aorta (3.9 cm). SUMMARY ======= 27 year old female with known bicuspid aortic valve, ascending aortic dilation (3.8 cm by outside echo) and mild dysautonomia referred for thoracic MRA. THORACIC MRA (and flash cine of the Aortic valve) OTHER FINDINGS: Bicuspid aortic valve with fusion of the left and right coronary cusps. VASCULAR ======= UPPER VASCULAR EVALUATION OF THE THORACIC AORTA COMMENTS 1. Left sided aortic arch with normal branching pattern; the left vertebral artery appears to arise directly from the aortic arch. 2. Dilated ascending aorta measuring 3.9 cm; with remaining measurements below. 3. Patent proximal celiac and superior mesenteric arteries. . --. EVALUATION DETAILS (Thoracic Aorta) -- AORTIC ROOT Sinus of Valsalva Max Diameter A: 3.4 cm Sinus of Valsalva Max Diameter B: 3.2 cm + --+ ASCENDING AORTA Dimension A: 3.9 cm Dimension B: 3.8 cm + --+ ARCH OF THE AORTA Dimension A: 2.2 cm Dimension B: 2.1 cm + --+ ISTHMUS OF THE AORTA Dimension A: 2.1 cm Dimension B: 2.1 cm + --+ MID-DESCENDING AORTA Dimension A: 2 cm Dimension B: 1.9 cm + --+ DISTAL DESCENDING AORTA Dimension A: 1.7 cm Dimension B: 1.7 cm + --+ See comments. . --. SCAN INFO ======= GENERAL SCANNER PRIVACY ATTORNEY: [employer] MODEL: ROI² PULSE SEQUENCES: SSFP cine, HASTE morphology, 3D [...] no pericardial effusion. Assessment & Plan Lisa Levy is a 27 y.o. No obstetric history [...] aortic valve and has been followed by [facility]. The patient is currently asymptomatic from a cardiac standpoint, but is at risk for aortic dissection (especially given known ascending aortic dilation), heart failure, MN, and arrhythmias due to expected cardiovascular changes [...] as Marfan syndrome. The patient qualifies for [facility] risk classification II-III which confers an intermediate increase in risk of maternal mortality, moderate to severe increase in morbidity, and a 11-19% risk of maternal cardiac event for which recommend consultation with heart team for baseline echocardiogram, clinical assessments every trimester, and delivery at a level II or higher maternal care center. Summary of Recommendations: Ms. Lisa Levy has a condition that would make a higher risk for maternal and complications. If, with an understanding of the risks (detailed above), she decides to pursue , the following are recommendations to decrease the chances and severity of complications: Recommendations during - [facility] referral for multi-disciplinary care coordination - Baseline [...] would be appropriate for co-managed care with [facility] for ultrasounds and visits every trimester and that she should contact and establish care obstetrical care with [facility] general director of assessment practice once has a positive test. Thank you for involving us in the care of this patient. Please feel free to contact us with any further questions. Discussed with and seen with Dr. Damon Bardales MD Fellow, Maternal- Medicine The patient was seen and evaluated today along with the M Fellow. I agree with the assessment and plan of care as per the fellow's note. Belle Jose DO Department of Obstetrics and Gynecology Division of Maternal Medicine [facility] signed by Belle Jose DO at 11/20/2022 2:12 PM EDT documented in this encounter [facility] 06-05-2021 Instructions Charlotte Cárdenas MD - 06/05/2021 11:42 AM EDT ASSESSMENT/PLAN: Status post tonsillectomy Healing well Pathology benign Followup as needed [facility] History of Present illness Narrative [...] Followup as needed documented in this encounter [facility] Evaluation note Diagnosis Postop check- Primary Follow-up examination, following unspecified surgery [facility] Diagnosis Encounter for preconception consultation- Primary Bicuspid aortic valve Congenital insufficiency of aortic valve [facility] Diagnosis Lymphadenopathy- Primary Enlargement of lymph nodes [facility] Diagnosis Lymphadenopathy Enlargement of lymph nodes [facility] Diagnosis Lymphadenopathy Enlargement of lymph nodes [facility] Diagnosis Thyroid nodule Nontoxic uninodular goiter [facility] Diagnosis Thyroid nodule- Primary Nontoxic uninodular goiter [facility]* Attachments The following attachments cannot be sent through Care Everywhere. * [facility] SMOKING CESSATION LINKS [facility] Reason for Referral Status Reason Specialty Diagnoses / Procedures Referred By Contact Referred To Contact New Request Diagnoses Other fatigue Lymphadenopathy of head and neck Procedures US NECK SOFT TISSUE Darryn Dow, REFINERY OPERATOR ASSISTANT [address] [place] [address] Specialty Diagnoses / Procedures Referred By Contac t Referred To Contact Diagnoses Lymphadenopathy Procedures XR FLUORO MODIFIED BARIUM SWALLOW-ENT ONLY CHG RADIOLOGIC EXAM ESOPHAGUS SINGLE CONTRAST STUDY Regan Schaeffer APRN-REFINERY OPERATOR ASSISTANT [address] [place] [id number] Referral ID Status Reason Start Date Expiration Date V isits Requested Visits Authorized [id number] Auth Not Needed 12/24/2022 01/18/2024 1 1 Specialty Diagnoses / Procedures Referred By Contac t Referred To Contact Diagnoses Lymphadenopathy Regan Schaeffer APRN-REFINERY OPERATOR ASSISTANT [address] [place] [address] Referral ID Status Reason Start Date Expiration Date V isits Requested Visits Authorized [id number] Pending Review 12/24/2022 01/18/2024 1 1 Specialty Diagnoses / Procedures Referred By Contac t Referred To Contact Diagnoses Lymphadenopathy Procedures CT NECK WITH CONTRAST ID CT NECK TISSUE CONTRAST Regan Schaeffer VECTOR CONTROL ASSISTANT-REFINERY OPERATOR ASSISTANT [address] [place] [address] Referral ID Status Reason Start Date Expiration Date Visits Re quested Visits Authorized [id number] Closed 12/24/2022 01/18/2024 1 1 Referral ID Status Reason Start Date Expiration Date Visits Re quested Visits Authorized [id number] Closed 12/24/2022 01/18/2024 1 1 Specialty Diagnoses / Procedures Referred By Contac t Referred To Contact Diagnoses Thyroid nodule Procedures US THYROID ID US,HEAD/NECK TISSUES,REAL TIME Herve Will MD [address] [place] [address] [facility] [address] [place] [address] Referral ID Status Reason Start Date Expiration Date V isits Requested Visits Authorized [id number] New Request 05/27/2023 06/20/2024 1 1 Specialty Diagnoses / Procedures Referred By Contac t Referred To Contact Diagnoses Thyroid nodule Procedures US [facility] Andres Torres MD [address] [facility] [address] [place] [address] Referral ID Status Reason Start Date Expiration Date V isits Requested Visits Authorized [id number] New Request 09/22/2023 10/16/2024 1 1 Assessments [...] section and content) DATE CRE[facility] AUTHOR [facility] DATE CREATED AUTHOR AUTHOR'S ORGANIZ ATION 05/28/2022 [facility] DATE CREATED AUTHOR AUTHOR'S ORGANIZ ATION 05/24/2023 [facility] DATE CREATED AUTHOR AUTHOR'S ORGANIZ ATION 06/24/2023 [facility] DATE CREATED AUTHOR AUTHOR'S ORGANIZ ATION 09/26/2023 [facility] DATE CREATED AUTHOR AUTHOR'S ORGANIZ ATION 10/09/2023 [facility] DATE CREATED AUTHOR AUTHOR'S ORGANIZ ATION 11/01/2023 [facility] EPIC DATE CREATED AUTHOR AUTHOR'S ORGANIZ ATION 11/02/2023 [facility] Reason for Visit (unrecogniz ed section and [...] FOL W/CONT, CHEST Chepe Peraza MD [address] [place] [address] [facility] [address] [place] [address] Referral ID Status Reason Start Date Expiration Date V isits Requested Visits Authorized [id number] Auth Not Needed 05/29/2022 06/23/2023 1 1 Reason Comments Problem Reason Comments New Patient Reports right side o f neck with questionable swelling, continues to have problems with food getting stuck. Has to wash down food with liquids. Specialty Diagnoses / Procedures Referred By Contmary carmen t Referred To Contact Otolaryngology Diagnoses SCOPE. Pt saw Dr Armas in 11/2018. And he told her if anything comes up let him know. She is having neck swelling on the right and it feels like their are 2 hard knot on her neck. Procedures NEW PATIENT W/ SCOPE Self, Self Neil Armas MD [address] [place] [address] Referral ID Status Reason Start Date Expiration Date Visits Re quested Visits Authorized [id number] Closed 12/24/2022 01/18/2024 1 1 Specialty Diagnoses / Procedures Referred By Contac t Referred To Contact Diagnoses Lymphadenopathy Procedures CT NECK WITH CONTRAST ID CT NECK TISSUE CONTRAST EdinsonRegan Lonnie, VECTOR CONTROL ASSISTANT-REFINERY OPERATOR ASSISTANT [address] [place] [address] Referral ID Status Reason Start Date Expiration Date Visits Re quested Visits Authorized [id number] Closed 12/24/2022 01/18/2024 1 1 Specialty Diagnoses / Procedures Referred By Contac t Referred To Contact Diagnoses Lymphadenopathy Procedures XR FLUORO MODIFIED BARIUM SWALLOW-ENT ONLY CHG RADIOLOGIC EXAM ESOPHAGUS SINGLE CONTRAST STUDY EdinsonRegan, VECTOR CONTROL ASSISTANT-REFINERY OPERATOR ASSISTANT [address] [place] [address] Referral ID Status Reason Start Date Expiration Date Visits Re quested Visits Authorized [id number] Closed 12/24/2022 01/18/2024 1 1 [facility]ty Diagnoses / [facility] Contact Diagnoses Thyroid nodule Procedures US THYROID ID US,HEAD/NECK TISSUES,REAL TIME Herve Will MD [address] [place] [address] [facility] [address] [place] [address] Referral ID Status Reason Start Date Expiration Date V isits Requested Visits Authorized [id number] New Request 05/27/2023 06/20/2024 1 1 Reason Comments Thyroid Nodule Specialty Diagnoses / Procedures [facility] Ref[facility] To Contact Endocrinology, Diabetes & Metabolism Diagnoses Thyroid nodule EdinsonRegan veronica, VECTOR CONTROL ASSISTANT-REFINERY OPERATOR ASSISTANT [address] [place] [address] Referral ID Status Reason Start Date Expiration Date V isits Requested Visits Authorized [id number] Pending Review 06/04/2023 06/28/2024 1 1 Care Teams (unrecognized sec tion and content) Lens Blank Gauger Relationship Specialty Start Date End Date Herve Will MD [address] [place] [address] PCP - General Family Medicine 09/23/19 Chepe Peraza MD [address] [place] [address] Form Tamping Machine Operator Pediatrics 04/30/21 Lens Blank Gauger Relationship Specialty Start Date End Date Herve Will MD [address] [place] [address] PCP - General Family Medicine 09/23/19 Chepe Peraza MD [address] [place] [phone] Form Tamping Machine Operator Pediatrics 04/30/21 Lens Blank Gauger Relationship Specialty Start Date End Date Herve Will MD [address] [place] [address] PCP - General Family Medicine 09/23/19 Chepe Peraza MD [address] [place] [address] Form Tamping Machine Operator Pediatrics 04/30/21 Lens Blank Gauger Relationship Specialty Start Date End Date Herve Will MD [address] [place] [address] PCP - General Family Medicine 09/23/19 Chepe Peraza MD [address] [place] [address] Form Tamping Machine Operator Pediatrics 04/30/21 Lens Blank Gauger Relationship Specialty Start Date End Date Herve Will MD [address] [place] [address] PCP - General Family Medicine 09/23/19 Chepe Peraza MD [address] [place] [phone] Form Tamping Machine Operator Pediatrics 04/30/21 Lens Blank Gauger Relationship Specialty Start Date End Date Herve Will MD [address] [place] [address] PCP - General Family Medicine 09/23/19 Chepe Peraza MD [address] [place] [address] Form Tamping Machine Operator Pediatrics 04/30/21 Lens Blank Gauger Relationship Specialty Start Date End Date Herve Will MD [address] [place] [address] PCP - General Family Medicine 09/23/19 Chepe Peraza MD [address] [place] [address] Form Tamping Machine Operator Pediatrics 04/30/21 Lens Blank Gauger Relationship Specialty Start Date End Date Herve Will MD [address] [place] [address] PCP - General Family Medicine 09/23/19 Chepe Peraza MD [address] [place] [id number] Form Tamping Machine Operator Pediatrics 04/30/21 FOR RECORDS PERTAINING TO PATIENTS [...] BE BASED ON THE PRIMARY CLINICAL RECORDS. [facility]. provides no warranty or guarantee of the accuracy or completeness of information in this document.
[2023-11-14 15:04] VITALS: BP 109/73; PULSE 78; TEMP 36.4
[2023-11-14 15:17] LABS: Bilirubin Urine NEGATIVE (NEGATIVE); Blood Urine NEGATIVE (NEGATIVE); Clarity Urine CLEAR (CLEAR); Color Urine LT. YELLOW (YELLOW); Glucose Urine UA NEGATIVE (NEGATIVE); Ketones Urine 15 mg/dL (NEGATIVE); Leukocyte Esterase Urine NEGATIVE (NEGATIVE); Nitrite Urine NEGATIVE (NEGATIVE); Protein Urine NEGATIVE (NEG/TRACE); Urobilinogen Urine 0.2 EU/dL (0.2-1.0)
[2023-11-14 15:22] LABS: Urine Microscopic Indicated NO
== END 2023-11-14 15:51 | disposition home or self-care (01) ==
LOC: FBC 14:39
PROVIDERS: Admitting Provider Obstetrics & Gynecology; Visit Provider Obstetrics & Gynecology
DX: O26.899 Other specified pregnancy related conditions, unspecified trimester (principal); M54.9 Dorsalgia, unspecified; Z3A.00 Weeks of gestation of pregnancy not specified
CPT/HCPCS: 81003; G0378; G0379

== ENCOUNTER 2023-11-17 10:25 | Outpatient (OUT) | payer OTHER, SELFPAY ==
--- OUTSIDE RECORDS SUMMARY | 2023-11-17 10:42 | XMS_ITS | CCD ---
Author Organization [facility] Care Team Providers Care [employer] Maid Name Role Phone Unavailable Unavailable Unavailable Herve Will MD Primary Care Provider [phone] Chepe Peraza MD Unavailable Herve Will MD Primary Care Unavail able Cristian DORADO, Jake Og Attending UnavailHerve Chiang MD Primary Care Unavail swathi Foster MD, Jake Og Attending Unavailvero Foster MD, Jake Og Attending UnavailHerve Chiang MD Primary Care Unavail able Herve Will MD Primary Care Provider Chepe Peraza MD Unavailable [phone] Herve Will MD Primary Care Provider HERVE WILL Attending Unavailable Chepe Peraza MD Unavailable [phone] DARRYN DOW Primary Care Unavailable DU [...] source) Doxycycline; Translations: [DOXYCYCLINE] Drug Allergy 3 [facility] Lincomycin (1 source) Lincomycin; Translations: [LINCOMYCIN] Drug Allergy 5 [facility] Lincosamides (antibiotic) (1 source) Clindamycin; Translations: [CLINDAMYCIN] Drug Allergy 8 [facility] Macrolides (antibiotic) (2 sources) Erythromycin; Translations: [ERYTHROMYCIN] Drug Allergy 3 [facility] Penicillins (antibiotic) (1 source) Amoxicillin; Translations: [AMOXICILLIN] Drug Allergy 3 [facility] Spironolactone (1 source) Spironolactone; Translations: [SPIRONOLACTONE] Drug Allergy 4 [facility] (13 sources) Amoxicillin; Translations: [amoxicillin] Drug Allergy 8 [facility] Work Phone: (7 sources) Clarithromycin; Translations: [clarithromycin] Drug Allergy 8 [facility] Work Phone: (12 sources) Clindamycin; Translations: [clindamycin] Drug Allergy 8 [facility] Work Phone: (13 sources) Doxycycline; Translations: [doxycycline] Drug Allergy 8 [facility] Work Phone: (6 sources) Clarithromycin Propensity to adverse reactions to drug 8 Rash [facility] Work Phone: (1 source) Erythromycin; Translations: [...] 0 05/22/2021 Active lidocaine viscous-Alum & Mag Dvchzkveu-Xlhrvw-kvpqxdhjjfRNUUW oral mouthwash (8 sources) Start: 05-22-2021 take 15 mL by mouth every six hours as needed lidocaine viscous-Alum & Mag Hfnwpopaj-Nvbwvn-cvsbkujwpcNFTDA oral mouthwash Swish and swallow 15mL by mouth every 6 hours as needed. 240 mL 05/22/2021 Active Start: 05-22-2021 take 15 mL by mouth every six hours as needed lidocaine viscous-Alum & Mag Diuvdookb-Uhehif-hxkemrmqgrCBXIQ oral mouthwash Swish and swallow 15mL by mouth every 6 hours as needed. 240 mL 0 05/22/2021 Active nystatin 589173 unt/ml oral suspension (8 sources) Polyene Antifungal Start: 05-16-2021 take 10 mL by mouth four times daily nystatin [id number] UNIT/ML oral suspension Swish and swallow 10 [...] Range Facility Office Visiton 10-07-2023 Follow-up visit [id number] Lisa Levy 1995 F Date Provider Department Center 10/07/2023 CHEPE GOODSONanabel No family history on file Level of Service:60622 MT OFFICE/OUTPATIENT ESTABLISHED MOD MDM 30 MIN Reason for Visit and Comments: Heart Problem [54] - Transfer from [facility] - 18 wks Normal [facility] US SOFT TISSUE HEAD & NE CK REAL TIME IMGE DOCMon 09-23-2023 Radiology Study observation (narrative) [facility] US SOFT TISSUE HEAD & NE CK REAL TIME IMGE DOCMon 09-22-2023 Andres Torres MD 09/23/2023 6:28 PM Ms. Levy was seen and examined with Dr. Glover, I independently verified the findings on US and agree with the documented report - thyroid ultrasound report appears in the notes tab. [facility] US Unspecified body regionOr dered By: Unassigned Pacs on 09-22-2023 [facility] Work Phone: US Unspecified body regionon 09-22-2023 Radiology Study observation (narrative) [facility] 36on 07-04-2023 36 Created in error Normal [facility] 36 Scheduled an appointment October 06 at 8:30am. [facility] 36 If this patient schedules a follow-up [...] her and left her message as well. [facility] 36on 07-03-2023 36 Patient is newly (4wks) and is currently scheduled in August for her yearly visit.. She is asking if she needs to reschedule to do the 20-24 wk gestational testing. PH: [phone] [facility] Telephoneon 07-03-2023 Telephone [id number] Lisa Peña 1995 F Date Provider Department Center 07/03/2023 [id number]-ZOAWJRAMIRO MONTALVO PED [employer] No family history on file [facility] VZ Immunityon 06-23-2023 VZ Immunity 3.84 Normal >1.09 [facility] Comment on above: Result Comment: Interpretation: IMMUNE Reference Range: <0.91 Not Immune 0.91-1.09 Equivocal >1.09 Immune Performed By: #### V ZI #### [facility] [address] [place] [address] Flame Hardening Machine Operator: Bear Mejias MD US THYROIDon 06-03-2023 US [...] Echogenicity: Hyperechoic or isoechoic (1 point) Shape: Lyxjc-vvoe-wdmm (0 points) Margin: Smooth (0 points) Echogenic [...] using ACR TI-RADS. (JACR July 2016) Normal [facility] FREE T4on 05-23-2023 Free T4 [Mass/Vol] 1.0 ng/dL Normal 0.9-1.8 [facility] Comment on above: Order Comment: Locat ion: Performed By: #### L 127, [id number] #### ANIL SAUER ([id number]) [facility] ([facility]) [address] [facility] [address] [place] [address] 17[address] TSHon 05-23-2023 TSH 2.599 MIU/mL Normal 0.550-4.780 [facility] Comment on above: Order Comment: Locat ion: Performed By: #### L 127, [id number] #### ANIL SAUER ([id number]) [facility] ([facility]) [address] [facility], [address] [place] [address] RF videography Hypopharynx a nd Esophagus Views [...] report for further details and dietary recommendations. [facility] Radiology Study observation (narrative) [facility] RF videography Hypopharynx a nd Esophagus Views W liquid and paste contrast PO during swallowingOrdered By: Gisele Hardy on 01-09-2023 [facility] Work Phone: XR FLUORO MODIFIED BARIUM SW [...] for further details and dietary recommendations. Normal [facility] CT NECK WITH CONTRASTon 10- CT [...] error, please notify the sender immediately at [phone] and permanently delete the original report and destroy any copies or printouts. Normal [facility] [employer] Cytology Reporton 2022 [employer] Cytology Report Clinical Information Specimen Collection Date: [...] smears in the future. GY Disclaimer Alpha [employer] Loan Disclaimer ANATOMICPATHOLOGY Normal 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 Patient reports some pain [...] and the last time she saw her at home independent call center agent thought there might have been some dilation [...] will send patient for preconceptual counseling with [facility] because of her cardiac abnormality Follow-up [...] intractable, w/o (more content not included)... Normal [facility] Culture, Urineon 08-04-2020 RPT Microbiology results Abnormal [facility] Comment on above: Order Comment: Items in this order include: Culture, Urine Testing Performed By: [facility] [address] [place] [address] [place] [address] Dr. Anil Sauer, Flame Hardening Machine Operator Result Comment: [place] Count: 10,000-25,000 CFU/ML Final Result: Escherichia [...] R Performed By: #### C 734 #### [facility] [address] [place] [address] Culture, Urineon 03-14-2020 RPT Microbiology results Abnormal [facility] Comment on above: Order Comment: Items in this order include: Culture, Urine Testing Performed By: [facility] [address] [place] [address]. [place] [address] Dr. Shaunna Cummins, Flame Hardening Machine Operator Result Comment: [place] Count: >100,000 CFU/ML Final Result: Escherichia [...] R Performed By: #### C 734 #### [facility] [address] [place] [address] Culture, Urineon 12-14-2019 RPT Microbiology results Abnormal [facility] Comment on above: Order Comment: Items in this order include: Culture, Urine Testing Performed By: [facility] [address] [place] [address] Dr. Shaunna Cummins, Flame Hardening Machine Operator Result Comment: [place] Count: 50,000-75,000 CFU/ML Final Result: Escherichia [...] R Performed By: #### C 734 #### [facility] [place] [address] Vital Signs Date Time Vital Sign Value Performing Clinician Faci keith 09-22-2023 13:37-0400 Body height 162.6 cm Latrice Glover MD Work Phone: [facility] 09-22-2023 13:37-0400 Body mass index (BMI) [Ratio] 25.4 kg/m2 Latrice Glover MD Work Phone: [facility] 09-22-2023 13:37-0400 Body temperature 97.3 [degF] Latrice Glover MD Work Phone: [facility] 09-22-2023 13:37-0400 Body weight 67.13 kg Latrice Glover MD Work Phone: [facility] 09-22-2023 13:37-0400 Diastolic blood pressure 62 mm[Hg] Latrice Glover MD Work Phone: [facility] 09-22-2023 13:37-0400 Systolic blood pressure 114 mm[Hg] Latirce Glover MD Work Phone: [facility] 12-24-2022 16:30-0400 Body height 162.6 cm Regan LATHAM Work Phone: [facility] 12-24-2022 16:30-0400 Body mass index (BMI) [Ratio] 23.17 kg/m2 Regan Schaeffer VENEER MANUFACTURER-JAILER Work Phone: [facility] 12-24-2022 16:30-0400 Body weight 61.24 kg Regan Schaeffer VENEER MANUFACTURER-JAILER Work Phone: [facility] 12-24-2022 16:30-0400 Diastolic blood pressure 68 mm[Hg] Regan Schaeffer VENEER MANUFACTURER-JAILER Work Phone: [facility] 12-24-2022 16:30-0400 Heart rate 71 /min Regan Schaeffer VENEER MANUFACTURER-JAILER Work Phone: [facility] 12-24-2022 16:30-0400 Systolic blood pressure 108 mm[Hg] Regan Schaeffer VENEER MANUFACTURER-JAILER Work Phone: [facility] 12-24-2022 11:37-0400 Body mass index (BMI) [Ratio] 23.22 kg/m2 Neil Armas MD Work Phone: [facility] 12-24-2022 11:37-0400 Body temperature 98.2 [degF] Neil Armas MD Work Phone: [facility] 12-24-2022 11:37-0400 Body weight 61.37 kg Neil Armas MD Work Phone: [facility] 12-24-2022 11:37-0400 Diastolic blood pressure 78 mm[Hg] Neil Armas MD Work Phone: [facility] 12-24-2022 11:37-0400 Heart rate 73 /min Neil Armas MD Work Phone: [facility] 12-24-2022 11:37-0400 Respiratory rate 16 /min Neil Armas MD Work Phone: [facility] 12-24-2022 11:37-0400 SaO2% (BldA) [Mass fraction] 99 % Neil Armas MD Work Phone: [facility] 12-24-2022 11:37-0400 Systolic blood pressure 123 mm[Hg] Neil Armas MD Work Phone: [facility] Encounters Encounter Date Encounter Type Care Provider Facility Start: 10-31-2023 End: 10-31-2023 ambulatory [facility] Start: 10-30-2023 End: 10-30-2023 ambulatory RICKY ANKIT Not Available Start: 10-20-2023 End: 10-20-2023 ambulatory [facility] Start: 10-07-2023 End: 10-07-2023 ambulatory [facility] Start: 09-30-2023 End: 09-30-2023 ambulatory ELLA LEWIS Not Available Start: 09-22-2023 End: 09-22-2023 Office outpatient new 45 minutes Latrice Glover MD Work Phone: Endocrinology Out[facility] Comment on above: Thyroid nodule (Prim subhash Dx) Start: 09-22-2023 ambulatory LATRICE GLOVER Facilit y:[facility] Start: 09-01-2023 End: 09-01-2023 ambulatory RICKY ANKIT Not Available Start: 07-31-2023 End: 07-31-2023 ambulatory GEOVANNY ABDULKADIR Not Available Start: 06-20-2023 End: 06-21-2023 ambulatory [facility] Start: 06-02-2023 ambulatory HERVE WILL Fac ility:[facility] Start: 06-02-2023 End: 06-02-2023 Subsequent hospital visit by physician Herve Will MD Work Phone: Department of Radiology Comment on above: Arrived Start: 05-27-2023 End: 05-27-2023 ambulatory GEOVANNY PANCHAL Not Available Start: 05-23-2023 End: 05-23-2023 ambulatory HERVE WILL [facility] Start: 01-09-2023 End: 01-09-2023 Subsequent hospital visit by physician Neil Armas MD Work Phone: Department of Radiology Comment on above: Arrived Start: 01-09-2023 ambulatory HERVE Benavides ility:[facility] Start: 12-24-2022 End: 12-24-2022 Subsequent hospital visit by physician Regan Schaeffer VENEER MANUFACTURER-JAILER Work Phone: [facility] [place] Comment on above: Arrived Start: 12-24-2022 ambulatory REGAN SCHAEFFER Facilit y:[facility] Start: 12-24-2022 End: 12-24-2022 Office outpatient new 45 minutes Neil Armas MD Work Phone: Department of Otolaryngology Comment on above: Lymphadenopathy (Alicia ramin Dx) Start: 12-24-2022 ambulatory SELF SELF Facility:[facility] Start: 11-20-2022 End: 11-20-2022 Office consultation new/estab patient 60 min Belle Jose DO Work Phone: [facility] [place] Comment on above: Encounter for precon ception consultation (Primary Dx); Bicuspid aortic valve Start: 11-20-2022 ambulatory HERVE Benavides ility:[facility] Start: 08-15-2022 End: 08-15-2022 Subsequent hospital visit by physician Chepe Peraza MD Work Phone: Cardiovascular Imaging [facility] Comment on above: Canceled (Cancel Ligia son Not Listed - Please provide detailed information) Start: 05-21-2022 End: 05-22-2022 ambulatory Jake Foster MD Facility:[facility] Start: 06-05-2021 End: 06-05-2021 Postop follow up visit related to original px Charlotte Cárdenas MD Work Phone: [facility] [place] Comment on above: Postop check (Primar y [...] hagus single contrast study Regan M Edinson VENEER MANUFACTURER-JAILER Work Phone: Plan of Treatment Date Care Activity Detail Author Start: 11-09-2023 Influenza vaccination INFLUENZA VACC INE (#1) [facility] Start: 06-03-2023 ambulatory Ambulatory Facility:[facility] Start: 01-09-2023 End: 01-09-2023 ambulatory 01/09/2023 8:30 AM EDT Rehab Services Visit [facility] [address] [place] [id number] [facility] Start: 01-09-2023 End: 01-09-2023 Patient encounter procedure 01/09/2023 8:30 AM EDT Appointment Department of Radiology [address] [place] [address] Department of Radiology Start: 12-24-2022 End: 12-25-2023 CT Neck W contrast IV [facility] Comment on above: Expected: 12/24/2022 , Expires: 12/25/2023 1 Occurrences starti ng 12/24/2022 until 12/24/2022 Start: 12-24-2022 End: 12-25-2023 RF videography Hypopharynx and Esophagus Views W liquid and paste contrast PO during swallowing XR FLUORO MODIFIED BARIUM SWALLOW-ENT ONLY Imaging Routine Lymphadenopathy Expected: 12/24/2022, Expires: 12/25/2023 [facility] Comment on above: Expected: 12/24/2022 , Expires: 12/25/2023 Start: 11-08-2022 COVID-19 VACCINE (2022- season) COVID-19 VACCINE ( season) [facility] Start: 11-08-2022 Influenza vaccination [facility] Start: 11-08-2020 Influenza vaccination INFLUENZA VACC INE (#1) [facility] Start: 03-27-2018 End: 03-27-2018 Ambulatory 03/27/2018 Appointment Ultrasound Darryn Dow, JAILER [address] [place] [address] [phone] Department of Radiology Start: 03-18-2018 End: 03-18-2019 US scan of neck US NECK SOFT TISSUE Routine Other fatigue Lymphadenopathy of head and neck Expected: 03/18/2018, Expires: 03/18/2019 [facility] Work Phone: Comment on above: Expected: 03/18/2018 , Expires: 03/18/2019 Start: 11-08-2017 Influenza vaccination INFLUENZA VACC INE (#1) [facility] Work Phone: Start: 2015 Screening for malign ant neoplasm of cervix [facility] Start: 2013 Hepatitis B vaccination HEP B VACCINE (1 of 3 - 19+ 3-dose series) [facility] Start: 2013 Third diphtheria, tetanus and acellular pertussis (DTaP) vaccination TDAP (ADULT) [facility] Start: 02-04-2012 GONORRHEA SCREEN GONORRHEA SCREEN [facility] Work Phone: Start: 02-04-2012 Tetanus vaccination TETANUS [facility] Start: 2010 Screening for Chlamy kyle trachomatis CHLAMYDIA SCREEN [facility] Work Phone: Start: 2009 HIV screening HIV SCREENING DISCUSSI ON [facility] Start: 2007 HIV screening HIV SCREENING DISCUSSI ON [facility] Work Phone: Start: 03-13-2005 Tetanus vaccination TETANUS [facility] Start: 2005 Vaccination for jelly n papillomavirus HPV VACCINE ADOL (1 - Female 3-dose series) [facility] Work Phone: Start: 02-04-2000 PNEUMOCOCCAL VACCINE SERIES (1 of 2 - PCV) PNEUMOCOCCAL VACCINE SERIES (1 of 2 - PCV) [facility] Start: 1999 COVID-19 VACCINE (1) COVID-19 VACCIN E (1) [facility] Start: 1994 COVID-19 VACCINE (#1) COVID-19 VACCI NE (#1) [facility] Start: 1994 Hepatitis C antibody , confirmatory test HEPATITIS C VIRUS SCREENING [facility] Start: 1994 Hepatitis C screening HEPATITI S C VIRUS SCREENING [facility] Laryngoscopy flexibl e diagnostic MT LARYNGOSCOPY FLEXIBLE DIAGNOSTIC MT Charge Routine Lymphadenopathy Ordered: 12/24/2022 [facility] Comment on above: Ordered: 12/24/2022 End: 06-02-2023 US Thyroid gland [facility] Work Phone: Comment on above: 1 Occurrences starti ng 06/02/2023 until 06/02/2023 Immunizations Immunization Date Immunization Notes Care Provider Sandrine oviedo 12-25-2022 influenza virus vaccine, unspecified formulation Latrice Glover MD Work Phone: [facility] 01-08-2016 influenza virus vaccine, unspecified formulation Charlotte Cárdenas MD Work Phone: [facility] Payers Date Payer Category Payer Unknown [id number] 2023 Private Health Insurance [employer] V[employer] ETNA [id number] 2023-Present [address] [place] [address] [id number] 2023 Private Health Insurance [id number] 2021 Unknown [id number] 2020 Unknown [id number]. [id number] 2020 Unknown [id number] 1994 Unknown [id number] 2.16.840.1.541854.3.579.2. 196 1994 Unknown [id number] 2.16.840.1.700422.3.579.2. 196 1994 Unknown [id number] 2.16.840.1.718336.3.579.2. 196 1994 Unknown [id number] 2.16.840.1.801663.3.579.2. 1260 1994 Unknown [id number] 2.16.840.1.581937.3.579.2. 173 1994 Unknown [id number] 2.16.840.1.525326.3.579.2. 594 1994 Unknown [id number] 2.16.840.1.605648.3.579.2. 594 1994 Unknown [id number] 2.16.840.1.615007.3.579.2. 594 1994 Unknown [id number] 2.16.840.1.656888.3.579.2. 594 1994 Unknown [id number] 2.16.840.1.877240.3.579.2. 594 1994 Unknown [id number] 2.16.840.1.370159.3.579.2. 594 1994 Unknown [id number] 2.16.840.1.129185.3.579.2. 594 1994 Unknown [id number] 2.16.840.1.672499.3.579.2. 594 1994 Unknown [id number] 2.16.840.1.046548.3.579.2. 1259 1994 Unknown [id number] 2.16.840.1.351061.3.579.2. 1259 1994 Unknown [id number] 2.16.840.1.892424.3.579.2. 1259 1994 Unknown [id number] 2.16.840.1.388308.3.579.2. 1259 1994 Unknown [id number] 2.16.840.1.952289.3.579.2. 1259 1994 Unknown [id number] 2.16.840.1.644479.3.579.2. 1286 1994 Unknown [id number] 2.16.840.1.850180.3.579.2. 1286 1994 Unknown [id number] 2.16.840.1.063969.3.579.2. 1286 Social History Date Type Detail Facility Tobacco smoking stat us NHIS Unknown if ever smoked [facility] Work Phone: Start: 1995 Sex Assigned At Not on file O [facility] Work Phone: Start: 04-21-2018 End: 09-22-2023 Tobacco smoking status NHIS Never smoked tobacco [facility] Start: 04-21-2018 End: 09-22-2023 Tobacco use and exposure Smokeless tobacco non-user [facility] Start: 06-05-2021 End: 09-22-2023 Alcohol intake Current drinker of alcohol (finding) [facility] Start: 04-15-2020 History SDOH Alcohol Frequency 2 [facility] Start: 04-15-2020 History SDOH Alcohol Std Drinks 1 [facility] Start: 05-10-2021 History SDOH Alcohol Comment 1-2 drinks per month [facility] Start: 05-26-2021 End: 06-05-2021 Exposure to SARS-CoV-2 (event) Not sure [facility] Start: 04-15-2020 End: 12-24-2022 History of Social function [facility] Start: 04-15-2020 End: 12-24-2022 Alcohol Use Disorder Identification Test - Consumption [AUDIT-C] [facility] How often to you hav e a drink containing alcohol? Monthly or less [facility] How many standard dr inks containing alcohol do you have on a typical day? 1 or 2 [facility] How often do you hav e 6 or more drinks on 1 occasion? Never [facility] Start: 03-16-2017 Gender identity Identifies as female gender (finding) [facility] Adolescent depressio n screening assessment 0 [facility] Start: 1995 Sex assigned at Female [facility] Clinical Notes 06-05-2021 to 10-07-2023 Latrice Glover MD - 09/22/2023 1:30 PM EDTCdanni Galdamez - 09/22/2023 1:30 PM Magui Torres MD - 09/22/2023 1:30 PM EDRadha Glover MD - 09/22/2023 1:30 PM EDTPatient Instructions Note Date & Type Note Facility 10-07-2023 Note Outpatient echo Must use antibiotic for dental procedures May fly Passive second stage deliver in [facility] 10-07-2023 Note Lonnie Peres [address] [facility] [id number] October 07, 2023 Patient: Lisa Levy Date [...] use. She is scheduled to fly to [place] to see her in the near future [...] Normal biventricular systoli (more content not included)... [facility] 09-22-2023 History of Present illness Narrative RFC: Patient with thyroid nodule. Most recent US showing nodule TI-RADS 3 Regan Schaeffer, VENEER MANUFACTURER-* HPI: Ms. Levy is a 28 y.o. [...] Hyperlipidemia, Hyperthyroidism, Hypogonadism male, Hypothyroidism, Liver disease, [place] (myocardial infarction), Migraine, Multinodular goiter, LADY (obstructive [...] hours as needed. lidocaine viscous-Alum & Mag Gwlufnugm-Bufngl-sqbmvuouwvDBRAO oral mouthwash Swish and swallow 15mL by mouth every 6 hours as needed. norgestimate-ethinyl estradiol (Sprintec 28) 0.25-35 MG-MCG tablet Take 1 tablet by mouth at bedtime. nystatin [id number] UNIT/ML oral suspension Swish and swallow 10 [...] Echogenicity: Hyperechoic or isoechoic (1 point) Shape: Lzfxc-fhju-uboc (0 points) Margin: Smooth (0 points) Echogenic [...] Fellow, Division of Endocrinology, Diabetes, and Metabolism [facility] the [facility] [place] [address] No follow-ups on file. Patient has verified [...] Fellow, Division of Endocrinology, Diabetes, and Metabolism [facility] at the [facility] [place] [address] documented in this encounter [facility] 09-22-2023 Instructions Latrice Glover MD - 09/22/2023 1:30 PM EDT It was great seeing you today! Division of Endocrinology Outpatient [facility] Follow-up appointments: Please arrive at [...] Any non-urgent results will be relayed via [place] if you have signed up for this service or via a letter through the mail and/or phone call. Communication with your provider: - [facility] is highly recommended as the most efficient [...] help perpare you for your future visits: [email or web address] --> Patient Care section. Sincerely, Latrice Glover MD Fellow, Division of Endocrinology, Diabetes, and Metabolism [place] [address] documented in this encounter [facility] 09-22-2023 Procedure note Associated Ord er(s): CHG US SOFT TISSUE HEAD & NECK REAL TIME IMGE DOCM Ms. Levy was seen and examined with Dr. Glover, I independently verified the findings on US and agree with the documented report - thyroid ultrasound report appears in the notes tab. [facility] 09-22-2023 Procedure note Associated Ord er(s): CHG US SOFT TISSUE HEAD & NECK REAL TIME IMGE DOCM Ms. Levy was seen and examined with Dr. Glover, I independently verified the findings on US and agree with the documented report - thyroid ultrasound report appears in the notes tab. documented in this encounter [facility] 12-24-2022 History of Present illness Narrative Chief Complaint: Chief Complaint Patient presents with New Patient Reports right side of neck with questionable swelling, continues to have problems with food getting stuck. Has to wash down food with liquids. HPI: Lisa Levy is a 27 y.o. female smoker / non-smoker who presents 12/24/22 to the [facility] [...] N/A; Surgeon: Ramin Denney MD; [facility] WISDOM TEETH EXTRACTION Social History [...] 1 Bottle 0 lidocaine viscous-Alum & Mag Ajtcnpkyf-Wwqhqa-oqinmjwolkZDIMF oral mouthwash Swish and swallow 15mL by mouth every 6 hours as needed. 240 mL 0 norgestimate-ethinyl estradiol (Sprintec 28) 0.25-35 MG-MCG tablet Take 1 tablet by mouth at bedtime. nystatin [id number] UNIT/ML oral suspension Swish and swallow 10 [...] / non-smoker who presents 12/24/22 to the [facility] [...] Laterality: N/A; Surgeon: Ramin Denney MD; [facility]TRACTION Social [...] 1 Bottle 0 lidocaine viscous-Alum & Mag Ohvcsrcra-Xbuliy-fprdzaskvzKXHWR oral mouthwash Swish and swallow 15mL by mouth every 6 hours as needed. 240 mL 0 norgestimate-ethinyl estradiol (Sprintec 28) 0.25-35 MG-MCG tablet Take 1 tablet by mouth at bedtime. nystatin [id number] UNIT/ML oral suspension Swish and swallow 10 [...] are not concerning. documented in this encounter [facility] 11-20-2022 History of Present illness Narrative Maternal- Medicine (High Risk Obstetrics) Consultation Indication for consultation: Congenital Bicuspid aortic valve Referring Provider: Herve Will MD History Lisa Levy is a 27yo G0 LMP [id number] using nothing for contraception who presents for preconception consultation in the setting of hx congenital bicuspid aortic valve. Her history is also notable for a history of exercise induced asthma and thyroid nodule. She feels well today and has no complaints or concerns. She was recently seen by Dr. Peraza ([facility]) for preconception counseling on 05/21/2022 at [...] [facility]. 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 Ms. Lisa Levy has the following problems [...] N/A; Surgeon: Ramin Denney MD; Location[facility] MAIN OR WISDOM TEETH EXTRACTION - [...] 1 Bottle 0 lidocaine viscous-Alum & Mag Jlkcwgchr-Zdzrwr-rbvuvhjcthBDHLW oral mouthwash Swish and swallow 15mL by mouth every 6 hours as needed. 240 mL 0 norgestimate-ethinyl estradiol (Sprintec 28) 0.25-35 MG-MCG tablet Take 1 tablet by mouth at bedtime. nystatin [id number] UNIT/ML oral suspension Swish and swallow 10 [...] . --. 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 The patient is currently asymptomatic from a cardiac standpoint, but is at risk for aortic dissection (especially given known ascending aortic dilation), heart failure, [place], and arrhythmias due to expected cardiovascular changes [...] as Marfan syndrome. 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 Thank [...] Obstetrics [facility]ne[facility] signed by Belle Jose DO at 11/20/2022 2:12 PM EDT documented in this encounter [facility] 06-05-2021 Instructions Charlotte Cárdenas MD - 06/05/2021 11:42 AM EDT ASSESSMENT/PLAN: Status post tonsillectomy Healing well Pathology benign Followup as needed [facility] History of Present illness Narrative [...] Followup as needed documented in this encounter [facility] Evaluation note Diagnosis Postop check- Primary Follow-up examination, following unspecified surgery [facility] Encounter for preconception consultation- Primary Bicuspid aortic valve Congenital insufficiency of [facility] Lymphadenopathy- Primary Enlargement of lymph nodes [facility] Lymphadenopathy Enlargement of lymph nodes [facility] Lymphadenopathy Enlargement of lymph nodes [facility] Thyroid nodule Nontoxic uninodular goiter [facility] Thyroid nodule- Primary Nontoxic uninodular goiter [facility] Attachments The following attachments cannot be sent through Care Everywhere. * [facility] Reason for Referral Status Reason Specialty Diagnoses / Procedures Referred By Contact Referred To Contact New Request Diagnoses Other fatigue Lymphadenopathy of head and neck Procedures US NECK SOFT TISSUE Darryn oDw, JAILER [address] [place] [address] Specialty Diagnoses / Procedures Referred By Contac t Referred To Contact Diagnoses Lymphadenopathy Procedures XR FLUORO MODIFIED BARIUM SWALLOW-ENT ONLY CHG RADIOLOGIC EXAM ESOPHAGUS SINGLE CONTRAST STUDY Regan Schaeffer APRN-JAILER [address] [place] [id number] Referral ID Status Reason Start Date Expiration Date V isits Requested Visits Authorized [id number] Auth Not Needed 12/24/2022 01/18/2024 1 1 Specialty Diagnoses / Procedures Referred By Contac t Referred To Contact Diagnoses Lymphadenopathy Regan Schaeffer APRN-JAILER [address] [place] [address] Referral ID Status Reason Start Date Expiration Date V isits Requested Visits Authorized [id number] Pending Review 12/24/2022 01/18/2024 1 1 Specialty Diagnoses / Procedures Referred By Contac t Referred To Contact Diagnoses Lymphadenopathy Procedures CT NECK WITH CONTRAST MT CT NECK TISSUE CONTRAST Regan Schaeffer VENEER MANUFACTURER-JAILER [address] [place] [address] Referral ID Status Reason Start Date Expiration Date Visits Re quested Visits Authorized [id number] Closed 12/24/2022 01/18/2024 1 1 Referral ID Status Reason Start Date Expiration Date Visits Re quested Visits Authorized [id number] Closed 12/24/2022 01/18/2024 1 1 Specialty Diagnoses / Procedures Referred By Contac t Referred To Contact Diagnoses Thyroid nodule Procedures US THYROID MT US,HEAD/NECK TISSUES,REAL TIME Herve Will MD [address] [place] [address] [facility] [address] [place] [address] Referral ID Status Reason Start Date Expiration Date V isits Requested Visits Authorized [id number] New Request 05/27/2023 06/20/2024 1 1 Specialty Diagnoses / Procedures Referred By Contac t Referred To Contact Diagnoses Thyroid nodule Procedures US [facility] Andres Torres MD [address] [facility] [address] [place] [address] Referral ID Status Reason Start Date Expiration Date V isits Requested Visits Authorized [id number] New Request 09/22/2023 10/16/2024 1 1 Assessments [...] section and content) DATE CRE[facility] DATE CREATED AUTHOR AUTHOR'S ORGANIZ ATION 05/28/2022 [facility] DATE CREATED AUTHOR AUTHOR'S ORGANIZ ATION 05/24/2023 [facility] DATE CREATED AUTHOR AUTHOR'S ORGANIZ ATION 06/24/2023 [facility] DATE CREATED AUTHOR AUTHOR'S ORGANIZ ATION 09/26/2023 [facility] DATE CREATED AUTHOR AUTHOR'S ORGANIZ ATION 10/09/2023 [facility] DATE CREATED AUTHOR AUTHOR'S ORGANIZ ATION 11/01/2023 [facility] EPIC DATE CREATED AUTHOR AUTHOR'S ORGANIZ ATION 11/02/2023 [facility] Reason for Visit (unrecogniz ed section [...] FOL W/CONT, CHEST Chepe Peraza MD [address] [place] [address] [facility] [address] [place] [address] Referral ID Status Reason Start Date Expiration Date V isits Requested Visits Authorized [id number] Auth Not Needed 05/29/2022 06/23/2023 1 1 [...] MD [address] [place] [address] Referral ID Status Reason Start Date Expiration Date Visits Re quested Visits Authorized [id number] Closed 12/24/2022 01/18/2024 1 1 Specialty Diagnoses / Procedures Referred By Contac t Referred To Contact Diagnoses Lymphadenopathy Procedures CT NECK WITH CONTRAST MT CT NECK TISSUE CONTRAST EdinsonRegan Lonnie, VENEER MANUFACTURER-JAILER [address] [place] [address] Referral ID Status Reason Start Date Expiration Date Visits Re quested Visits Authorized [id number] Closed 12/24/2022 01/18/2024 1 1 Specialty Diagnoses / Procedures Referred By Contac t Referred To Contact Diagnoses Lymphadenopathy Procedures XR FLUORO MODIFIED BARIUM SWALLOW-ENT ONLY CHG RADIOLOGIC EXAM ESOPHAGUS SINGLE CONTRAST STUDY EdinsonRegan, VENEER MANUFACTURER-JAILER [address] [place] [address] Referral ID Status Reason Start Date Expiration Date Visits Re quested Visits Authorized [id number] Closed 12/24/2022 01/18/2024 1 1 Specialty Diagnoses / Procedures [facility] Referred To Contact Diagnoses Thyroid nodule Procedures US THYROID MT US,HEAD/NECK TISSUES,REAL TIME Herve Will MD [address] [address] [facility] [address] [place] [address] Referral ID Status Reason Start Date Expiration Date V isits Requested Visits Authorized [id number] New Request 05/27/2023 06/20/2024 1 1 Reason Comments Thyroid Nodule Specialty Diagnoses / Procedures [facility] Referred To Contact Endocrinology, Diabetes & Metabolism Diagnoses Thyroid nodule EdinsonRegan veronica, VENEER MANUFACTURER-JAILER [address] [place] [address] Referral ID Status Reason Start Date Expiration Date V isits Requested Visits Authorized [id number] Pending Review 06/04/2023 06/28/2024 1 1 Care Teams (unrecognized sec tion and content) Motel Maid Relationship Specialty Start Date End Date Herve Will MD [address] [place] [address] PCP - General Family Medicine 09/23/19 Chepe Peraza MD [address] [place] [address] Wire Wrapping Machine Operator Pediatrics 04/30/21 Motel Maid Relationship Specialty Start Date End Date Herve Will MD [address] [place] [address] PCP - General Family Medicine 09/23/19 Chepe Peraza MD [address] [place] [address] Wire Wrapping Machine Operator Pediatrics 04/30/21 Motel Maid Relationship Specialty Start Date End Date Herve Will MD [address] [place] [address] PCP - General Family Medicine 09/23/19 Chepe Peraza MD [address] [place] [address] Wire Wrapping Machine Operator Pediatrics 04/30/21 Motel Maid Relationship Specialty Start Date End Date Herve Will MD [address] [address] PCP - General Family Medicine 09/23/19 Chepe Peraza MD [address] [place] [address] Wire Wrapping Machine Operator Pediatrics 04/30/21 Motel Maid Relationship Specialty Start Date End Date Herve Will MD [address] [place] [address] PCP - General Family Medicine 09/23/19 Chepe Peraza MD [address] [place] [address] Wire Wrapping Machine Operator Pediatrics 04/30/21 Motel Maid Relationship Specialty Start Date End Date Herve Will MD [address] [place] [address] PCP - General Family Medicine 09/23/19 Chepe Peraza MD [address] [place] [address] Wire Wrapping Machine Operator Pediatrics 04/30/21 Motel Maid Relationship Specialty Start Date End Date Herve Will MD [address] [place] [address] PCP - General Family Medicine 09/23/19 Chepe Peraza MD [address] [place] [address] Wire Wrapping Machine Operator Pediatrics 04/30/21 Motel Maid Relationship Specialty Start Date End Date Herve Will MD [address] [place] [address] PCP - General Family Medicine 09/23/19 Chepe Peraza MD [address] [place] [address] Wire Wrapping Machine Operator Pediatrics 04/30/21 FOR RECORDS PERTAINING [...] BE BASED ON THE PRIMARY CLINICAL RECORDS. [facility] [employer] [facility]. provides no warranty or guarantee of the accuracy or completeness of information in this document.
[2023-11-17 12:24] LABS: Basophils Absolute Auto 0.1 10^3/uL (0.0-0.1); Basophils Percent Auto 0.8 % (0.2-2.0); Eosinophils Absolute Auto 0.2 10^3/uL (0.0-0.7); Hematocrit 34.3 % (36.0-48.0); Hemoglobin 11.5 g/dL (12.0-16.0); Immature Granulocytes Abs Auto 0.18 10^3/uL (0.00-0.03); Lymphocytes Absolute Auto 1.8 10^3/uL (1.2-3.8); Lymphocytes Percent Auto 19.8 % (20.5-60.0); Mean Corpuscular HGB Conc 33.5 g/dL (29.9-35.2); Mean Corpuscular Hemoglobin 30.2 pg (26.7-34.0); Mean Platelet Volume 11.1 fL (9.5-13.5); Monocytes Absolute Auto 0.7 10^3/uL (0.3-0.8); Monocytes Percent Auto 7.3 % (1.7-12.0); Neutrophils Absolute Auto 6.2 10^3/uL (1.4-6.5); Neutrophils Percent Auto 68.1 % (43.0-75.0); Platelet Count 181 10^3/uL (150-450); Red Blood Count 3.81 10^6/uL (4.20-5.40); White Blood Count 9.1 10^3/uL (4.0-11.0)
[2023-11-17 13:14] LABS: Glucose 1 Hour 103 mg/dL (<130)
== END 2023-11-17 10:26 | disposition home or self-care (01) ==
LOC: LAB 10:25
PROVIDERS: Visit Provider Obstetrics & Gynecology
DX: Z13.1 Encounter for screening for diabetes mellitus (principal)
CPT/HCPCS: 36415; 82950; 85025

== ENCOUNTER 2023-12-27 20:17 | Observation (INO) | payer OTHER, SELFPAY ==
--- OUTSIDE RECORDS SUMMARY | 2023-12-27 20:21 | XMS_ITS | CCD ---
Author Organization [facility] Care Team Providers Care Intern Architect Name Role Phone Unavailable Unavailable Unavailable Herve Will MD Primary Care Provider Chepe Peraza MD Unavailable [phone] Herve Will MD Primary Care Unavail able Cristian DORADO, Jake Og Attending UnavailHerve Chiang MD Primary Care Unavail able Cristian DORADO, Jake Og Attending Unavailfred Foster MD, Jake Og Attending UnavailHerve Chiang MD Primary Care Unavail able Herve Will MD Primary Care Provider Chepe Peraza MD Unavailable Herve Will MD Primary Care Provider HERVE WILL Attending Unavailable Chepe Peraza MD Unavailable LATRICE GLOVER Attending Unavailable BARBARA HERVE J Primary Care Unavailable REGAN SCHAEFFER Referring Unavailable SHOLADANKER HERVE J Primary Care Unavailable SELF, SELF Referring Unavailable DAMON BELLE K Admitting Unavailable BELLE JOSE Attending Unavailable SELF, SELF Referring Unavailable OZER, ENVER Attending Unavailable SHOEMAKER, HERVE J Primary Care Unavailable REGAN SCHAEFFER M Attending Unavailable REGAN SCHAEFFER M Referring Unavailable SHOEMAKER, HERVE J Primary Care Unavailable SHOEMAKER, HERVE J Primary Care Unavailable REGAN SCHAEFFER M Referring Unavailable OZER, ENVER Attending Unavailable OZER, ENVER Attending Unavailable SELF, SELF Referring Unavailable SHOEMAKER HERVE J Primary Care Unavailable REGAN SCHAEFFER M Referring Unavailable OZER, ENVER Attending Unavailable BARBARA HERVE J Primary Care Unavailable BARBARA HERVE J Attending Unavailable BARBARA, HERVE J Referring Unavailable BARBARA HERVE J Primary Care Unavailable SAMMY PERAZA Referring Unavailable HERVE WILL Primary Care Unavailabl e DUARTE BERNARD Attending Unavailable THERESE GLEASON Referring Unavailable HERVE WILL Primary Care Unavailabl e CHEPE PERAZA Referring Unavailable HERVE WILL Primary Care Unavailabl e SAMMY PERAZA R Referring Unavailable ANGEL WILLIL KENYA Primary Care Unavailabl e SANTI JERONIMO Attending Unavailable IWONA JOSEPH Referring Unavailabl e HERVE WILL Primary Care Unavailabl e CHEPE PERAZA Attending Unavailable FRU DARRYN Primary Care Unavailable DU PHILIP Referring Unavailable FRU, DARRYN Primary Care Unavailable MONICA SOFIA Attending Unavailable DI PANCHAL Attending Unavailable SAMMY PERAZA Attending Unavailable ELLA LEWIS Attending Unavailable SAMMY PERAZA Attending Unavailable DEBBIE, ELLA Attending Unavailable DEBBIE, ELLA Attending Unavailable Unavailable Primary Care Provider Unavailabl e Allergies Allergy Classification Reported Allergen(s) Allergy Type Date of Onset Reaction(s) Facility (17 sources) Amoxicillin; Translations: [amoxicillin] Drug Allergy 04-14-19 13 Rash, Unknown [facility] Work Phone: (8 sources) Clarithromycin; Translations: [clarithromycin] Drug Allergy 10-07-19 16 [facility] Work Phone: (13 sources) Clindamycin; Translations: [clindamycin] Drug Allergy 03-16-19 18 [facility] Work Phone: (17 sources) Doxycycline; Translations: [doxycycline] Drug Allergy 04-14-19 13 Unknown [facility] Work Phone: (9 sources) Clarithromycin Propensity to adverse reactions to drug 10-07-19 16 Rash, Unknown [facility] Work Phone: (5 sources) Erythromycin; Translations: [ERYTHROMYCIN] Drug Allergy 04-14-19 13 [facility] (5 sources) Spironolactone; Translations: [SPIRONOLACTONE] Drug Allergy 05-27-19 24 Dizziness [facility] Repository (1 source) Lincomycin; Translations: [LINCOMYCIN] Drug Allergy 07-13-19 15 [facility] Repository (3 sources) Clindamycin/Lincom ycin Drug Intolerance 07-13-19 Unknown [facility] Medications Current Medications Medication Drug Class(es) Dates [...] / zinc oxide 20 mg oral tablet (9 sources) Vitamin B12, Vitamin D, Vitamin C Start: 11-20-2022 take 1 tablet by mouth in the morning Vit-DSS-Fe Fum-FA ( 19) tablet Take 1 tablet by mouth in the morning. 11/20/2022 Active Start: 11-20-2022 take 1 tablet by iveth th once daily Vit-DSS-Fe Fum-FA ( 19) tablet [...] hydrox.-simethicone 80 mL mouthwash (8 sources) Start: 2021 take 15 mL transmucosal route every six [...] 0 05/22/2021 Active lidocaine viscous-Alum & Mag Lhmgdmxxu-Xrcwpi-gotobaoecmYNJMH oral mouthwash (8 sources) Start: 05-22-2021 take 15 mL by mouth every six hours as needed lidocaine viscous-Alum & Mag Gxhkgzckc-Tgjsyr-volmbglrtiRVGED oral mouthwash Swish and swallow 15mL by mouth every 6 hours as needed. 240 mL 05/22/2021 Active Start: 05-22-2021 take 15 mL by mouth every six hours as needed lidocaine viscous-Alum & Mag Ztdgsvgvs-Ijywgo-ldfvivfapiDUIBA oral mouthwash Swish and swallow 15mL by mouth every 6 hours as needed. 240 mL 0 05/22/2021 Active nystatin 446992 unt/ml oral suspension (8 sources) Polyene Antifungal Start: 05-16-2021 take 10 mL by mouth four times daily nystatin 942193 UNIT/ML oral suspension Swish and swallow 10 mL 4 times daily. 280 mL 05/16/2021 Active Warsaw-3 Fatty Acids (OMEGA 3 PO) (3 sources) Warsaw-3 Fatty Ac ids (OMEGA 3 PO) Take by mouth Active ondansetron 4 mg disintegrating oral tablet [...] 50 mL (1 source) Start: 01-09-2023 End: 11-02-2023 Barium Sulfate (VARIBAR THIN LIQUID) 40 % 50 mL iohexol (OMNIPAQUE) 350 MG/ML injection 1-171 mL (1 source) Start: 12-24-2022 End: 12-24-2022 iohexol (OMNIPAQUE) 350 MG/ML injection 1-171 mL 20 ml sodium chloride 9 mg/ml injection (1 source) Start: 12-24-2022 End: 12-24-2022 Sodium chloride (PF) 0.9 % injection 1-100 mL Problems Active Problems Problem Classification Problem Date Documented Date Episodic/Chronic Abdominal pain (1 source) Unspecified abdominal pain; Translations: [Unspecified abdominal pain] Onset: 12-09-2023 Episodic Acute and chronic tonsillitis (8 sources) Chronic tonsillitis; Translations: [Chronic tonsillitis] Onset: 03-19-2021 03-19-2021 Chronic Aortic; peripheral; and visceral artery aneurysms (4 sources) Thoracic aortic ectasia; Translations: [Aortic ectasia, unspecified site] Onset: 05-21-2022 Chronic Asthma (6 sources) Asthma; Translations: [Unspecified asthma, uncomplicated] Onset: 11-20-2022 11-20-2022 Chronic Cardiac and circulatory congenital anomalies (8 sources) Bicuspid aortic valve; Translations: [Congenital insufficiency of aortic valve] Onset: 07-15-2017 11-20-2022 Chronic Malaise and fatigue (1 source) Fatigue; Translations: [Other fatigue] Episodic Other aftercare (1 source) Surgical follow-up; Translations: [Encounter for follow-up examination after completed treatment for conditions other than malignant neoplasm] Episodic Other complications of (1 source) Diseases of the circulatory system complicating , second trimester; Translations: [Diseases of the circulatory system complicating , second trimester] Onset: 11-18-2023 Episodic Other complications of (1 source) Endocrine, nutritional and metabolic diseases complicating , second trimester; Translations: [Endocrine, nutritional and metabolic diseases complicating , second trimester] Onset: 11-18-2023 Episodic Other complications of (1 source) Abnormal ultrasonic finding on screening of mother; Translations: [Abnormal ultrasonic finding on screening of mother] Onset: 10-20-2023 Episodic Other complications of (1 source) Supervision of high risk , unspecified, unspecified trimester; Translations: [Supervision of high risk , unspecified, unspecified trimester] Onset: 10-20-2023 Episodic Other and delivery including normal (2 sources) Third trimester ; Translations: [Encounter for supervision of normal , unspecified, third trimester] 12-17-2023 Episodic Other screening for suspected conditions (not mental disorders or infectious disease) (3 sources) Encounter for other specified screening; Translations: [Encounter for screening for congenital cardiac abnormalities] Onset: 10-20-2023 Episodic Residual codes; unclassified (1 source) 24 weeks gestation of ; Translations: [24 weeks gestation of ] Onset: 11-18-2023 Episodic Residual codes; unclassified (2 sources) Gestation period, 28 weeks; Translations: [28 weeks gestation of ] 12-17-2023 Episodic Thyroid disorders (13 sources) Thyroid nodule; Translations: [Nontoxic single thyroid [...] Classification Problem Date Documented Da te Episodic/Chronic Administrative/social admission (2 sources) Encounter for pre-employment examination; Translations: [Encounter for pre-employment examination] Onset: 06-20-2023 Episodic Biliary tract disease (8 sources) Chronic cholecystitis; Translations: [Chronic cholecystitis] Onset: 04-05-2019 04-06-2019 Episodic Cardiac dysrhythmias (1 source) Palpitations; Translations: [Palpitations] Onset: 07-15-2017 Episodic Contraceptive and procreative management (3 sources) Patient encounter status; Translations: [Encounter for other general counseling and advice on procreation] Onset: 11-20-2022 11-20-2022 Episodic Lymphadenitis (6 sources) Generalized enlarged lymph nodes; Translations: [Lymphadenopathy] Onset: 01-09-2023 12-24-2022 Episodic Mood disorders (5 sources) Mood disorders Onset: 12-24-2022 12-24-2022 Other gastrointestinal disorders (2 sources) Dysphagia, pharyngeal phase; Translations: [Dysphagia, pharyngeal phase] Onset: 01-09-2023 Episodic NEGATED: Highlighted row has been ruled out!Unclassified (3 sources) No known active problems 05-27-2023 Results Test Name Value Interpretation Reference Range Facility Urinalysis macro (dipstick) panel (U)on 12-17-2023 Bilirubin, UA Negative Negative - 4(70) +++ mg/dL [facility] Blood, UA Negative Negative - 50 Sina/mcL [facility] Clarity, UA Clear [facility] Color, UA Yellow [facility] Glucose, UA Negative Negative - 1999(110) ++++ mg/dL [facility] Interpretation and review of laboratory results Abnormal [facility] Ketones, UA Negative Negative - 160(16) ++++ mg/dL [facility] Leukocytes, UA Trace Negative - 500+++ Amos/mcL [facility] Nitrite, UA Negative Negative - Positive [facility] pH, UA 7.5 5 - 9 [facility] Protein, UA Negative Negative - 1999(20) ++++ mg/dL [facility] Spec Grav, UA 1.020 1 - 1.03 [facility] Urobilinogen, UA 0.2 0.2 - 12 mg/dL [facility] CBC with Diffon 12-09-2023 Abs. Basophil 0.09 k/uL Normal 0.00-0.20 [facility] Comment on above: Performed By: #### C P, CDP #### [facility] [address] [place] [address] [place] [address] Manager Ed: Clark Mata MD Abs.Imm.Granulocyte 0.17 k/uL Normal 0.00-0.30 [facility] Comment on above: Performed By: #### C P, CDP #### [facility] [address] [place] [address] [place] [address] Manager Ed: Clark Mata MD Abs.Neutrophil (Seg) 5.63 k/uL Normal 1.50-8.10 [facility] Comment on above: Performed By: #### C P, CDP #### [facility] [address] [place], [place] [id number] Manager Ed: Clark Mata MD Basophils/100 WBC (Bld) 1 % Normal 0-2 [facility] Comment on above: Performed By: #### C P, CDP #### [facility] [address] [place], [place] [id number] Manager Ed: Clark Mata MD Eosinophils (Bld) [#/Vol] 0.13 10*3/uL Normal 0.00-0.44 [facility] Comment on above: Performed By: #### C P, CDP #### [address] [place], [place] [id number] Manager Ed: Clark Mata MD Eosinophils/100 WBC (Bld) 2 % Normal 1-4 [facility] Comment on above: Performed By: #### C P, CDP #### [address] [place], [facility]83 Manager Ed: Clark Mata MD Erythrocyte distribution width (RBC) [Ratio] 12.7 % Normal 11.8-14.4 [facility] Comment on above: Performed By: #### C P, CDP #### [address] [place], [place] [id number] Manager Ed: Clark Mata MD Hematocrit (Bld) [Volume fraction] 36.4 % Normal 36.3-47.1 [facility] Comment on above: Performed By: #### C P, CDP #### [address] [place], [place] [id number] Manager Ed: Clark Mata MD Hemoglobin (Bld) [Mass/Vol] 12.6 g/dL Normal 11.9-15.1 [facility] Comment on above: Performed By: #### C P, CDP #### [address] [place], [place] [id number] Manager Ed: Clark Mata MD Immature granulocytes/100 WBC (Bld) 2 % High 0 [facility] Comment on above: Performed By: #### C P, CDP #### [facility] [address] [place] [address] Manager Ed: Clark Mata MD Lymphocytes (Bld) [#/Vol] 1.80 10*3/uL Normal 1.10-3.70 [facility] Comment on above: Performed By: #### C P, CDP #### [facility] [address] [place], [place] [id number] Manager Ed: Clark Mata MD Lymphocytes/100 WBC (Bld) 21 % Low 24-43 [facility] Comment on above: Performed By: #### C P, CDP #### [address] [place] [address] Manager Ed: Clark Mata MD MCH (RBC) [Entitic mass] 30.4 pg Normal 25.2-33.5 [facility] Comment on above: Performed By: #### C P, CDP #### [address] [place] [address] Manager Ed: Clark Mata MD MCHC (RBC) [Mass/Vol] 34.6 g/dL Normal 28.4-34.8 [facility] Comment on above: Performed By: #### C P, CDP #### [address] [place] [address] Manager Ed: Clark Mata MD MCV (RBC) [Entitic vol] 87.9 fL Normal 82.6-102.9 [facility] Comment on above: Performed By: #### C P, CDP #### [address] [place] [address] Manager Ed: Clark Mata MD Monocytes (Bld) [#/Vol] 0.61 10*3/uL Normal 0.10-1.20 [facility] Comment on above: Performed By: #### C P, CDP #### [facility] [address] [place], [facility]83 Manager Ed: Clark Mata MD Monocytes/100 WBC (Bld) 7 % Normal 3-12 [facility] Comment on above: Performed By: #### C P, CDP #### [facility] [address] [place], [facility]83 Manager Ed: Clark Mata MD Neutrophil (Seg) 67 % High 36-65 [facility] Comment on above: Performed By: #### C P, CDP #### [address] [place], [facility]83 Manager Ed: Clark Mata MD NRBC Automated 0.0 per 100 WBC Normal 0.0 [facility] Comment on above: Performed By: #### C P, CDP #### [address] [place], [facility]83 Manager Ed: Clark Mata MD Platelet mean volume (Bld) [Entitic vol] 10.7 fL Normal 8.1-13.5 [facility] Comment on above: Performed By: #### C P, CDP #### [address] [place], [place] [address] Manager Ed: Clark Mata MD Platelets (Bld) [#/Vol] 162 10*3/uL Normal 138-453 [facility] Comment on above: Performed By: #### C P, CDP #### [address] [place], [facility]83 Manager Ed: Calrk Mata MD RBC (Bld) [#/Vol] 4.14 10*6/uL Normal 3.95-5.11 [facility] Comment on above: Performed By: #### C P, CDP #### [facility] [address] [place], [place] [id number] Manager Ed: Clark Mata MD WBC (Bld) [#/Vol] 8.4 10*3/uL Normal 3.5-11.3 [facility] Comment on above: Performed By: #### C P, CDP #### [facility] [address] [place], [place] [id number] Manager Ed: Clark Mata MD Comp Metabolic Profon 2023 Albumin [Mass/Vol] 3.7 g/dL Normal 3.5-5.2 [facility] Comment on above: Performed By: #### C P, CDP #### [address] [place], [place] [id number] Manager Ed: Clark Mata MD Albumin/Glob Ratio 1.4 Normal 1.0-2.5 [facility] Comment on above: Performed By: #### C P, CDP #### [address] [place], [place] [id number] Manager Ed: Clark Mata MD Alkaline Phos 47 U/L Normal 35-104 [facility] Comment on above: Performed By: #### C P, CDP #### [address] [place], [place] [id number] Manager Ed: Clark Mata MD ALT [Catalytic activity/Vol] 13 U/L Normal 10-35 [facility] Comment on above: Performed By: #### C P, CDP #### [facility] [address] [place], [place] [id number] Manager Ed: Clark Mata MD Anion gap [Moles/Vol] 9 mmol/L Normal 9-16 [facility] Comment on above: Performed By: #### C P, CDP #### [facility] [address] [place] [address] Manager Ed: Clark Mata MD AST [Catalytic activity/Vol] 16 U/L Normal 10-35 [facility] Comment on above: Performed By: #### C P, CDP #### [facility] [address] [place] [address] Manager Ed: Clark Mata MD Bilirubin [Mass/Vol] 0.3 mg/dL Normal 0.00-1.20 [facility] Comment on above: Performed By: #### C P, CDP #### [facility] [address] [place], [place] 6[address]83 Manager Ed: Clark Mata MD BUN/CRE Ratio 17 Normal 9-20 [facility] Comment on above: Performed By: #### C P, CDP #### [facility] [address] [place], [place] [id number] Manager Ed: Clark Mata MD Calcium [Mass/Vol] 8.7 mg/dL Normal 8.6-10.4 [facility] Comment on above: Performed By: #### C P, CDP #### [facility] [address] [place], [place] [address]27483 Manager Ed: Clark Mata MD Chloride [Moles/Vol] 104 mmol/L Normal 98-107 [facility] Comment on above: Performed By: #### C P, CDP #### [facility] [address] [place], [place] [id number] Manager Ed: Clark Mata MD CO2 [Moles/Vol] 21 mmol/L Normal 20-31 [facility] Comment on above: Performed By: #### C P, CDP #### [facility] [address] [place], [place] [address]366183 Manager Ed: Clark Mata MD Creatinine [Mass/Vol] 0.6 mg/dL Normal 0.50-0.90 [facility] Comment on above: Performed By: #### C P, CDP #### [facility] [place] [address] Manager Ed: Clark Mata MD GFR/1.73 sq M.predicted among non-blacks MDRD (S/P/Bld) [Vol rate/Area] mL/min/{1.73_m2} Normal >60 [facility] Comment on above: Result Comment: These results are not intended for use in patients <18 years of age. eGFR results are calculated without a race factor using the 2020 CKD-EPI equation. Careful clinical correlation is recommended, particularly when comparing to results calculated using previous equations. The CKD-EPI equation is less accurate in patients with extremes of muscle mass, extra-renal metabolism of creatine, excessive creatine ingestion, or following therapy that affects renal tubular secretion. Performed By: #### C P, CDP #### [address] [place] [address] Manager Ed: Clark Mata MD Glucose [Mass/Vol] 75 mg/dL Normal 74-99 [facility] Comment on above: Performed By: #### C P, CDP #### [address] [place] [address] Manager Ed: Clark Mata MD Potassium [Moles/Vol] 4.0 mmol/L Normal 3.7-5.3 [facility] Comment on above: Performed By: #### C P, CDP #### [address] [place] [address] Manager Ed: Clark Mata MD Protein [Mass/Vol] 6.2 g/dL Low 6.6-8.7 [facility] Comment on above: Performed By: #### C P, CDP #### [address] [place] [address] Manager Ed: Clark Mata MD Sodium [Moles/Vol] 134 mmol/L Low 136-145 [facility] Comment on above: Performed By: #### C P, CDP #### [address] [place], [place] [id number] Manager Ed: Clark Mata MD Urea nitrogen [Mass/Vol] 10 mg/dL Normal 6-20 [facility] Comment on above: Performed By: #### C P, CDP #### [facility] [address] [place], [place] [id number] Manager Ed: Clark Mata MD Lipaseon 0 Lipase [Catalytic activity/Vol] 41 U/L Normal 13-60 [facility] Comment on above: Performed By: #### L IP #### [facility] [address] [place], [place] [id number] Manager Ed: Clark Mata MD UA w/Reflex Cultureon 2023 Bilirubin, SemiQt,Ur Negative Normal NEG [facility] Comment on above: Performed By: #### U AXRAFFYO #### [facility] [address] [place], [place] 8257183 Manager Ed: Clark Mata MD Blood, Urine Negative Normal NEG [facility] Comment on above: Performed By: #### U AXRAFFYO #### [facility] [address] [place] [address] Manager Ed: Clark Mata MD Clarity (U) Clear Normal CLEAR [facility] Comment on above: Performed By: #### U AX UMICAO #### [facility] [address] [place], [facility]83 Manager Ed: Clark Mata MD Color (U) Yellow Normal YEL [facility] Comment on above: Performed By: #### U AX UMICAO #### [facility] [address] [place], [place] 1732683 Manager Ed: Clark Mata MD Glucose Ql (U) Negative Normal NEG [facility] Comment on above: Performed By: #### U AX UMICAO #### [facility] [address] [place], [place] [id number] Manager Ed: Clark Mata MD Ketones Ql (U) Negative Normal NEG [facility] Comment on above: Performed By: #### U AX, UMICAO #### [facility] [address] [place], [place] [id number] Manager Ed: Clark Mata MD Leukocyte esterase Test strip Ql (U) Negative Normal NEG [facility] Comment on above: Performed By: #### U AX, UMICAO #### [facility] [address] [place], [place] [id number] Manager Ed: Clark Mata MD Nitrite,Ur Negative Normal [facility] Comment on above: Performed By: #### U AX, UMICAO #### [facility] [address] [place], [facility]83 Manager Ed: Clark Mata MD PH,Ur 7.0 Normal 5.0-9.0 [facility] Comment on above: Performed By: #### U AX, UMICAO #### [facility] [address] [place] [address] [place], [place] [id number] Manager Ed: Clark Mata MD Protein Ql (U) Negative Normal NEG [facility] Comment on above: Performed By: #### U AX, UMICAO #### [facility] [address] [place] [address] Manager Ed: Clark Mata MD Spec. Oil Trough,Ur 1.015 Normal 1.010-1.020 [facility] Comment on above: Performed By: #### U AX, UMICAO #### [facility] [address] [place], [place] [id number] Manager Ed: Clark Mata MD Urobilinogen,Ur Normal Normal 0.0-1.0 [facility] Comment on above: Performed By: #### U AX, UMICAO #### [facility] [address] [place] [address] Manager Ed: Clark Mata MD US GALLBLADDER RUQon 024 US GALLBLADDER RUQ EXAMINATION: RIGHT UPPER QUADRANT ULTRASOUND 12/09/2023 11:20 am COMPARISON: None. HISTORY: ORDERING SYSTEM PROVIDED HISTORY: RUQ pain TECHNOLOGIST PROVIDED HISTORY: RUQ pain FINDINGS: LIVER: The liver demonstrates normal echogenicity without evidence of intrahepatic biliary ductal dilatation. BILIARY SYSTEM: Prior cholecystectomy. Common bile duct is within normal limits measuring 0.3 cm. RIGHT KIDNEY: The right kidney measures 10.5 cm in length. Minimal fluid is seen in the right renal pelvis without hydronephrosis. PANCREAS: The pancreas is mildly prominent, likely within normal limits for patient's age. OTHER: No evidence of right upper quadrant ascites. IMPRESSION: 1. Prior cholecystectomy. 2. There is minimal fluid distension of the right renal pelvis without hydronephrosis. 3. The pancreas is mildly prominent, likely within normal limits for patient's age. If there is clinical concern for pancreatitis, recommend correlation with serum lipase. Interpreted by: Sabi Leung MD Signed by: Sabi Leung MD 12/09/23 Final result Normal [facility] Urinalysis,Microon 4 Epithelial cells LM Ql (Urine sed) 0 TO 2 Normal 0-25 [facility] Comment on above: Performed By: #### U AX, UMICAO #### [facility] [address] [place] [address] Manager Ed: Clark Mata MD Urine RBC's None Normal 0-2 [facility] Comment on above: Performed By: #### U AX, UMICAO #### [facility] [address] [place] [address] Manager Ed: Clark Mata MD Urine WBC's 0 TO 2 Normal 0-5 [facility] Comment on above: Performed By: #### U AX, UMICAO #### [facility] [address] [place] [address] Manager Ed: Clark Mata MD 3612-03-2023 36 Echo order faxed over [facility] 3612-02-2023 36 Called and left detailed message for patient [facility] 36 This will be fine [facility] 36on 11-24-2023 36 Patient called stating that they [place] does not have any appointment for an echo until 32 week. She wants to know if it is okay for her to get it at 32 weeks or what else do you suggest. Please advise [facility] 36on 11-23-2023 36 I called the [facility] and I left a message on her voicemail that I would put an order in but she needs to call the [facility] scheduling line and get it scheduled in our office will fax the order to them. I asked her to schedule it for 30 weeks gestation. Please make sure that the order is faxed to [facility] scheduling. [facility] Orders Onlyon 11-23-2023 Orders Only [id number] Lisa Cardenas 1995 F Date Provider Department Center 11/23/2023 CHEPE GOODSON No family history on file [facility] 36on 11-21-2023 36 Pt called in stating that her OB would like pt to have another echo between 28-32 weeks to decipher if pt should deliver vaginally or . Pt is currently 24 weeks so she needs the order put in to have done between December 13- January 16. Pt would like to have it completed prior to her next apt with Dr. Peraza on 01/12. [facility] Telephoneon 11-21-2023 Telephone [id number] Lisa Cardenas 1995 F Date Provider Department Center 11/21/2023 CHEPE GOODSON No family history on file Reason for Visit and Comments: ECHO [Other] [facility] Office Visiton 10-07-2023 Follow-up visit [id number] Lisa Cardenas 1995 F Date Provider Department Center 10/07/2023 CHEPE GOODSONkervin Jalen No family history on file Level of Service:02031 GA OFFICE/OUTPATIENT ESTABLISHED MOD MDM 30 MIN Reason for Visit and Comments: Heart Problem [54] - Transfer from [facility] - 18 wks [facility] CHG US SOFT TISSUE HEAD & NE CK REAL TIME IMGE DOCMon 09-23-2023 Radiology Study observation (narrative) [facility] CHG US SOFT TISSUE HEAD & NE CK REAL [facility] 09-22-2023 Andres Torres MD 09/23/2023 6:28 PM Ms. Cardenas was seen and examined with Dr. Glover, I independently verified the findings on US and agree with the documented report - thyroid ultrasound report appears in the notes tab. [facility] US Unspecified body regionOr dered By: Unassigned Pacs on 09-22-[address] [facility] Work Phone: US Unspecified body regionon 09-22-2023 Radiology Study observation (narrative) [facility] 36on 07-04-2023 36 Created in error [facility] 36 Scheduled an appointment October 06 at 8:30am. [facility] 36 If this patient schedules a [...] her and left her message as well. [facility] 36on 07-03-2023 36 Patient is newly (4wks) and is currently scheduled in August for her yearly visit.. She is asking if she needs to reschedule to do the 20-24 wk gestational testing. PH: [phone] [facility] Telephoneon 07-03-2023 Telephone [id number] Lisa Peña 1995 F Date Provider Department Center 07/03/2023 [id number], [facility] PED [employer] No family history on file Normal [facility] VZ Immunityon 06-23-2023 VZ Immunity 3.84 Normal >1.09 [facility] Comment on above: Result Comment: Interpretation: IMMUNE Reference Range: <0.91 Not Immune 0.91-1.09 Equivocal >1.09 Immune Performed By: #### V ZI #### [facility] [address] [place] [address] Manager Ed: Bear Mejias MD US THYROIDon 06-03-2023 US [...] Echogenicity: Hyperechoic or isoechoic (1 point) Shape: Givxv-gkwm-rlgt (0 points) Margin: Smooth (0 points) Echogenic [...] using ACR TI-RADS. (JACR July 2016) Normal [facility] FREE T4on 05-23-2023 Free T4 [Mass/Vol] 1.0 ng/dL Normal 0.9-1.8 [facility] Comment on above: Order Comment: Locat ion: Performed By: #### L [id number], [id number] #### ANIL SAUER ([id number]) [facility] ([facility]) [address], [address] [place] [address] TSHon 05-23-2023 TSH 2.599 MIU/mL Normal 0.550-4.780 [facility] Comment on above: Order Comment: Locat ion: Performed By: #### L [id number], [id number] #### ANIL WENDIE ([id number]) [facility] ([facility]) [address], [address] [place] [address] RF videography Hypopharynx a nd Esophagus Views [...] report for further details and dietary recommendations. [facility] Radiology Study observation (narrative) [facility] RF videography Hypopharynx a nd Esophagus Views W liquid and paste contrast PO during swallowingOrdered By: Gisele Hardy on 01-09-2023 [facility] Work Phone: XR FLUORO MODIFIED BARIUM [...] for further details and dietary recommendations. Normal [facility] CT NECK WITH CONTRASTon 10-1 CT NECK [...] error, please notify the sender immediately at [phone] and permanently delete the original report and destroy any copies or printouts. Normal [facility] [employer] Cytology Reporton 2022 [facility] Cytology Report Clinical Information Specimen Collection Date: [...] smears in the future. 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 Patient reports some pain [...] and the last time she saw her pressure tester thought there might have been some dilation [...] will send patient for preconceptual counseling with [facility] because of her cardiac abnormality Follow-up [...] intractable, w/o (more content not included)... Normal [facility] Culture, Urineon 08-04-2020 RPT Microbiology results Abnormal [facility] Comment on above: Order Comment: Items in this order include: Culture, Urine Testing Performed By: [facility] [address] [place] [address] Dr. Anil Sauer, Manager Ed Result Comment: [place] Count: 10,000-25,000 CFU/ML Final Result: Escherichia [...] R Performed By: #### C 734 #### [facility] [address] [place] [address] [address] [place] [address] Culture, Urineon 03-14-2020 RPT Microbiology results Abnormal [facility] Comment on above: Order Comment: Items in this order include: Culture, Urine Testing Performed By: [facility] [address] [place] [address]. [place] [address] Dr. Shaunna Cummins, Manager Ed Result Comment: [place] Count: >100,000 CFU/ML Final Result: Escherichia [...] R Performed By: #### C 734 #### [facility] [address] [place] [address] Culture, Urineon 12-14-2019 RPT Microbiology results Abnormal [facility] Comment on above: Order Comment: Items in this order include: Culture, Urine Testing Performed By: [facility] [address] [place] [address] Dr. Shaunna Cummins, Manager Ed Result Comment: [place] Count: 50,000-75,000 CFU/ML Final Result: Escherichia [...] R Performed By: #### C 734 #### [facility] [address] [place] [address] Vital Signs Date Time Vital Sign Value Performing Clinician Facility 12-17-2023 10:27-0400 Body mass index (BMI) [Ratio] 27.6 kg/m2 Ella SQUIRES Work Phone: [facility] 12-17-2023 10:27-040 Body weight 72.94 kg Ella SQUIRES Work Phone: [facility] 12-17-2023 10:27-0400 Diastolic blood pressure 64 mm[Hg] Ella SQUIRES Work Phone: [facility] 10-09-2024 10:27-0400 Systolic blood pressure 100 mm[Hg] Ella SQUIRES Work Phone: [facility] 09-22-2023 13:37-0400 Body height 162.6 cm Latrice Glover MD Work Phone: [facility] 09-22-2023 13:37-0400 Body mass index (BMI) [Ratio] 25.4 kg/m2 Latrice Glover MD Work Phone: [facility] 09-22-2023 13:37-0400 Body temperature 97.3 [degF] Latrice Glover MD Work Phone: [facility] 09-22-2023 13:37-0400 Body weight 67.13 kg Latrice Glover MD Work Phone: [facility] 09-22-2023 13:37-0400 Diastolic blood pressure 62 mm[Hg] Latrice Glover MD Work Phone: [facility] 09-22-2023 13:37-0400 Systolic blood pressure 114 mm[Hg] Latrice Glover MD Work Phone: [facility] 12-24-2022 16:30-0400 Body height 162.6 cm Regan Schaeffer CHANNEL EXECUTIVE-LIABILITY CLAIMS EXAMINER Work Phone: [facility] 12-24-2022 16:30-0400 Body mass index (BMI) [Ratio] 23.17 kg/m2 Regan Schaeffer CHANNEL EXECUTIVE-LIABILITY CLAIMS EXAMINER Work Phone: [facility] 12-24-2022 16:30-0400 Body weight 61.24 kg Regan Schaeffer CHANNEL EXECUTIVE-LIABILITY CLAIMS EXAMINER Work Phone: [facility] 12-24-2022 16:30-0400 Diastolic blood pressure 68 mm[Hg] Regan Schaeffer CHANNEL EXECUTIVE-LIABILITY CLAIMS EXAMINER Work Phone: [facility] 12-24-2022 16:30-0400 Heart rate 71 /min Regan Edinson CHANNEL EXECUTIVE-LIABILITY CLAIMS EXAMINER Work Phone: [facility] 12-24-2022 16:30-0400 Systolic blood pressure 108 mm[Hg] Regan Schaeffer CHANNEL EXECUTIVE-LIABILITY CLAIMS EXAMINER Work Phone: [facility] 12-24-2022 11:37-0400 Body mass index (BMI) [Ratio] 23.22 kg/m2 Emile Armas MD Work Phone: [facility] 12-24-2022 11:37-0400 Body temperature 98.2 [degF] Emile Armas MD Work Phone: [facility] 12-24-2022 11:37-0400 Body weight 61.37 kg Emile Armas MD Work Phone: [facility] 12-24-2022 11:37-0400 Diastolic blood pressure 78 mm[Hg] Emile Armas MD Work Phone: [facility] 12-24-2022 11:37-0400 Heart rate 73 /min Emile Armas MD Work Phone: [facility] 12-24-2022 11:37-0400 Respiratory rate 16 /min Emile Armas MD Work Phone: [facility] 12-24-2022 11:37-0400 SaO2% (BldA) [Mass fraction] 99 % Emile Armas MD Work Phone: [facility] 12-24-2022 11:37-0400 Systolic blood pressure 123 mm[Hg] Emile Armas MD Work Phone: [facility] Encounters Encounter Date Encounter Type Care Provider Facility Start: 12-17-2023 End: 12-17-2023 Bamboo flowsheet Ella SQUIRES Work Phone: [facility] Start: 12-17-2023 End: 12-17-2023 Bamboo flowsheet Ella SQUIRES Work Phone: [facility] Start: 12-17-2023 End: 12-17-2023 flow sheet Ella SQUIRES Work Phone: [facility] Comment on above: 28 weeks gestation o f ; Third trimester Start: 12-17-2023 End: 12-17-2023 ambulatory ELLA LEWIS Not Available Start: 12-09-2023 End: 12-09-2023 Emergency department patient visit [facility] Start: 11-26-2023 End: 11-26-2023 ambulatory ELLA LEWIS Not Available Start: 11-18-2023 End: 11-18-2023 ambulatory [facility] Start: 10-31-2023 End: 10-31-2023 ambulatory [facility] Start: 10-30-2023 End: 10-30-2023 ambulatory SAMMY ANKIT Not Available Start: 10-20-2023 End: 10-20-2023 ambulatory [facility] Start: 10-07-2023 End: 10-07-2023 ambulatory [facility] Start: 09-30-2023 End: 09-30-2023 ambulatory ELLA DEBBIE Not Available Start: 09-22-2023 End: 09-22-2023 Office outpatient new 45 minutes Latrice Glover MD Work Phone: [facility] Comment on above: Thyroid nodule (Prim subhash Dx) Start: 09-22-2023 ambulatory LATRICE GLOVER Facilit y:[facility] Start: 09-01-2023 End: 09-01-2023 ambulatory SAMMY ANKIT Not Available Start: 07-31-2023 End: 07-31-2023 ambulatory DIMAYURI PANCHAL Not Available Start: 06-20-2023 End: 06-20-2023 ambulatory [facility] Start: 06-02-2023 ambulatory HERVE WILL Fac ility:[facility] Start: 06-02-2023 End: 03-25-2024 Subsequent hospital visit by physician Herve Will MD Work Phone: Department of Radiology Comment on above: Arrived Start: 05-27-2023 End: 05-27-2023 ambulatory DI PANCHAL Not Available Start: 05-23-2023 End: 05-23-2023 ambulatory HERVE WILL [facility] Start: 01-09-2023 End: 01-09-2023 Subsequent hospital visit by physician Emile Armas MD Work Phone: Department of Radiology Comment on above: Arrived Start: 01-09-2023 ambulatory HERVE Benavides ility:[facility] Start: 12-24-2022 End: 12-24-2022 Subsequent hospital visit by physician Regan Schaeffer APRN-LIABILITY CLAIMS EXAMINER Work Phone: [facility] [place] Comment on above: Arrived Start: 12-24-2022 ambulatory REGAN SCHAEFFER Facilit y:[facility] Start: 12-24-2022 End: 12-24-2022 Office outpatient new 45 minutes Emile Armas MD Work Phone: Department of Otolaryngology Comment on above: Lymphadenopathy (Alicia ramin Dx) Start: 12-24-2022 ambulatory SELF SELF Facility:[facility] Start: 11-20-2022 End: 11-20-2022 Office consultation new/estab patient 60 min Belle Jose DO Work Phone: [facility] [place] Comment on above: Encounter for precon ception consultation (Primary Dx); Bicuspid aortic valve Start: 11-20-2022 ambulatory HERVE Benavides ility:[facility] Start: 08-15-2022 End: 08-15-2022 Subsequent hospital visit by physician Chepe Peraza MD Work Phone: Cardiovascular Imaging [facility] Comment on above: Canceled (Cancel Ligia son Not Listed - Please provide detailed information) Start: 05-21-2022 End: 05-22-2022 ambulatory Jake Foster MD Facility:[facility] Start: 06-05-2021 End: 06-05-2021 Postop follow up visit related to original px Charlotte Cárdenas MD Work Phone: [facility] [place] Comment on above: Postop check (Primar y Dx) Start: 03-18-2018 End: 03-18-2018 Patient encounter procedure Darryn Kennedy Work Phone: Central Scheduling Comment on above: Other fatigue; Lymph adenopathy of head and neck Procedures Date Procedure Procedure Detail Performing Clinician Start: 12-17-2023 Urnls dip stick/tabl et rgnt non-auto w/o micrscp Ella SQUIRES Work Phone: Start: 09-22-2023 US Unspecified body region Latrice Glover MD Work Phone: Start: 09-22-2023 Us soft tissue head & neck real time imge docm Latrice Glover MD Work Phone: Start: 01-09-2023 Radiologic exam esop hagus single contrast study Regan Schaeffer CHANNEL EXECUTIVE-LIABILITY CLAIMS EXAMINER Work Phone: Plan of Treatment Date Care Activity Detail Author Start: 05-28-2024 End: 05-28-2024 Patient encounter procedure 05/28/2024 10:40 AM EDT Office Visit [facility] [address] [place] [id number] Di Panchal, [place] [address] [place] [address] [facility] Start: 12-30-2023 End: 12-30-2023 Patient encounter procedure 12/30/2023 10:30 AM EDT Routine [facility] [address] [place] [address] Sammy Peraza DO [address] [place] [address] [facility] Start: 12-17-2023 End: 12-17-2023 Patient encounter procedure 12/17/2023 10:20 AM EDT Routine [facility] [address] [place] [address] Ella Lewis PA [address] [place] [address] Arrived [facility] Comment on above: Arrived Start: 11-09-2023 Influenza vaccination INFLUENZA VACC INE (#1) [facility] Start: 06-03-2023 ambulatory Ambulatory Facility:[facility] Start: 01-09-2023 End: 01-09-2023 ambulatory 01/09/2023 8:30 AM EDT Rehab Services Visit [facility] [address] [place] [id number] [facility] Start: 01-09-2023 End: 01-09-2023 Patient encounter procedure 01/09/2023 8:30 AM EDT Appointment Department of Radiology [address] [place] [id number] Department of Radiology Start: 12-24-2022 End: 12-25-2023 CT Neck W contrast IV [facility] Comment on above: Expected: 12/24/2022 , Expires: 12/25/2023 1 Occurrences starti ng 12/24/2022 until 12/24/2022 Start: 12-24-2022 End: 12-25-2023 RF videography Hypopharynx and Esophagus Views W liquid and paste contrast PO during swallowing XR FLUORO MODIFIED BARIUM SWALLOW-ENT ONLY Imaging Routine Lymphadenopathy Expected: 12/24/2022, Expires: 12/25/[address] [facility] Comment on above: Expected: 12/24/2022 , Expires: 12/25/2023 Start: 11-08-2022 COVID-19 VACCINE ( season) COVID-19 VACCINE ( season) [facility] Start: 11-08-2022 Influenza vaccination O [facility] Start: 11-08-2020 Influenza vaccination INFLUENZA VACC INE (#1) [facility] Start: 03-27-2018 End: 03-27-2018 Ambulatory 03/27/2018 Appointment Ultrasound Darryn Kennedy Pablo, LIABILITY CLAIMS EXAMINER [address] [place] [address] [phone] Department of Radiology Start: 03-18-2018 End: 03-18-2019 US scan of neck US NECK SOFT TISSUE Routine Other fatigue Lymphadenopathy of head and neck Expected: 03/18/2018, Expires: 03/18/2019 [facility] Work Phone: Comment on above: Expected: 03/18/2018 , Expires: 03/18/2019 Start: 11-08-2017 Influenza vaccination INFLUENZA VACC INE (#1) [facility] Work Phone: Start: 2015 Screening for malign ant neoplasm of cervix [facility] Start: 2013 Hepatitis B vaccination HEP B VACCINE (1 of 3 - 19+ 3-dose series) [facility] Start: 2013 Third diphtheria, tetanus and acellular pertussis (DTaP) vaccination TDAP (ADULT) [facility] Start: 02-04-2012 GONORRHEA SCREEN GONORRHEA SCREEN [facility] Work Phone: Start: 02-04-2012 Tetanus vaccination TETANUS [facility] Start: 2010 Screening for Chlamy kyle trachomatis CHLAMYDIA SCREEN [facility] Work Phone: Start: 2009 HIV screening HIV SCREENING DISCUSSI ON [facility] Start: 2007 HIV screening HIV SCREENING DISCUSSI ON [facility] Work Phone: Start: 03-13-2005 Tetanus vaccination TETANUS [facility] Start: 2005 Vaccination for jelly n papillomavirus HPV VACCINE ADOL (1 - Female 3-dose series) [facility] Work Phone: Start: 02-04-2000 PNEUMOCOCCAL VACCINE SERIES (1 of 2 - PCV) PNEUMOCOCCAL VACCINE SERIES (1 of 2 - PCV) [facility] Start: 1999 COVID-19 VACCINE (1) COVID-19 VACCIN E (1) [facility] Start: 1994 COVID-19 VACCINE (#1) COVID-19 VACCI NE (#1) [facility] Start: 1994 Hepatitis C antibody , confirmatory test HEPATITIS C VIRUS SCREENING [facility] Start: 1994 Hepatitis C screening HEPATITI S C VIRUS SCREENING [facility] Laryngoscopy flexibl e diagnostic GA LARYNGOSCOPY FLEXIBLE DIAGNOSTIC GA Charge Routine Lymphadenopathy Ordered: 12/24/[address] [facility] Comment on above: Ordered: 12/24/2022 End: 06-02-2023 US Thyroid gland [facility] Work Phone: Comment on above: 1 Occurrences starti ng 06/02/2023 until 06/02/2023 Immunizations Immunization Date Immunization Notes Care Provider [facility] 12-25-2022 influenza virus vaccine, unspecified formulation Latrice Glover MD Work Phone: [facility] 01-08-2016 influenza virus vaccine, unspecified formulation Charlotte Cárdenas MD Work Phone: [facility] Payers Date Payer Category Payer Unknown [id number] 2023 Managed Care HMO (unspecified) [employer] A[employer] [id number] 2023-Present [address] [place] [address] HMO [id number] 2023 Private Health Insurance [employer] A ETNA [id number] 2023-Present [address] [place] [address] [id number] 2023 Private Health Insurance [id number] 2021 Unknown [id number] 2020 Unknown [id number] [id number] .[id number] 2020 Unknown [id number] 1994 Unknown [id number] 2.16.840.1.115706.3.579.2 .196 1994 Unknown [id number] 2.16.840.1.120475.3.579.2 .196 1994 Unknown [id number] 2.16.840.1.270932.3.579.2 .196 1994 Unknown [id number] 2.16.840.1.312067.3.579.2 .1260 1994 Unknown [id number] 2.16.840.1.229736.3.579.2 .594 1994 Unknown [id number] 2.16.840.1.166427.3.579.2 .594 1994 Unknown [id number] 2.16.840.1.317437.3.579.2 .594 1994 Unknown [id number] 2.16.840.1.363182.3.579.2 .594 1994 Unknown [id number] 2.16.840.1.152755.3.579.2 .594 1994 Unknown [id number] 2.16.840.1.700648.3.579.2 .594 1994 Unknown [id number] 2.16.840.1.341088.3.579.2 .594 1994 Unknown [id number] 2.16.840.1.834149.3.579.2 .594 1994 Unknown [id number] 2.16.840.1.913933.3.579.2 .1286 1994 Unknown [id number] 2.16.840.1.563336.3.579.2 .1286 1994 Unknown [id number] 2.16.840.1.043180.3.579.2 .1286 1994 Unknown [id number] 2.16.840.1.592879.3.579.2 .1286 1994 Unknown [id number] 2.16.840.1.317332.3.579.2 .1286 1994 Unknown [id number] 2.16.840.1.782259.3.579.2 .173 1994 Unknown [id number] 2.16.840.1.065638.3.579.2 .173 1994 Unknown [id number] 2.16.840.1.798080.3.579.2 .1259 1994 Unknown [id number] 2.16.840.1.967862.3.579.2 .1259 1994 Unknown [id number] 2.16.840.1.769414.3.579.2 .1259 1994 Unknown [id number] 2.16.840.1.779445.3.579.2 .1259 1994 Unknown [id number] 2.16.840.1.701373.3.579.2 .9 1994 Unknown [id number] 2.16.840.1.840738.3.579.2 .9 1994 Unknown [id number] 2.16.840.1.948478.3.579.2 .1259 Social History Date Type Detail Facility Tobacco smoking stat us KYIS Unknown if ever smoked [facility] Work Phone: Start: 1995 Sex Assigned At Not on file [facility] Work Phone: Start: 04-21-2018 End: 05-27-2023 Tobacco smoking status NHIS Never smoked tobacco [facility] Start: 04-21-2018 End: 05-27-2023 Tobacco use and exposure Smokeless tobacco non-user [facility] Start: 06-05-2021 End: 09-22-2023 Alcohol intake Current drinker of alcohol (finding) [facility] Start: 04-15-2020 History SDOH Alcohol Frequency [address] [facility] Start: 04-15-2020 History SDOH Alcohol Std Drinks [address] [facility] Start: 05-10-2021 History SDOH Alcohol Comment 1-2 drinks per month [facility] Start: 05-26-2021 End: 06-05-2021 Exposure to SARS-CoV-2 (event) Not sure [facility] Start: 04-15-2020 End: 05-27-2023 History of Social function [facility] Start: 04-15-2020 End: 05-27-2023 Alcohol Use Disorder Identification Test - Consumption [AUDIT-C] [facility] How often to you hav e a drink containing alcohol? Monthly or less [facility] [facility] How many standard dr inks containing alcohol do you have on a typical day? 1 or [address] [facility] How often do you hav e 6 or more drinks on 1 occasion? Never [facility] Start: 03-16-2017 Gender identity Identifies as female gender (finding) [facility] Adolescent depressio n screening assessment [address] [facility] Start: 1995 Sex assigned at Female [facility] Start: 11-26-2023 End: 12-17-2023 Alcoholic beverage intake Ex-drinker (finding) [facility] Start: 06-16-2023 [facility] Clinical Notes 06-05-2021 to 12-17-2023 TAVIA Parsons - 12/17/2023 10:20 AM Taylor Glover MD - 09/22/2023 1:30 PM Juanis Galdamez - 09/22/2023 1:30 PM Magui Torres MD - 09/22/2023 1:30 PM EDTPatient Instructions Note Date & Type Note Facility 12-17-2023 History of Present illness Narrative Reason for Appointment: Patient ID: Lisa Cardenas is a 28 y.o. female who presents for Routine Visit Patient presents today for Return OB appointment. MEDICATIONS Current Outpatient Medications Medication Instructions [place]-3 Fatty Acids (OMEGA 3 PO) Oral Vit-DSS-Fe Fum-FA ( 19) tablet 1 tablet, Oral, Daily RT ALLERGIES Allergies Allergen Reactions Doxycycline Unknown ulercative esophagus Ulcerative esophagus Other Reaction(s): ulcer esophagus Erythromycin Spironolactone Dizziness Amoxicillin Rash and Unknown As a child Clarithromycin Rash and Unknown Ok to take azithromycin Clindamycin/Lincomycin Unknown Ulcerated esophagus ulcerated esophagus Able to take IV- just had throat ulceration when swallowed pill Other Reaction(s): ulcer esophagus PROBLEMS Active Ambulatory Problems Diagnosis Date Noted No Active Ambulatory Problems Resolved Ambulatory Problems Diagnosis Date Noted No Resolved Ambulatory Problems No Additional Past Medical History HISTORY PAST MEDICAL HISTORY SOCIAL HISTORY History reviewed. No pertinent past medical history. Social History Tobacco Use Smoking status: Never Smokeless tobacco: Never Substance Use Topics Alcohol use: Not Currently Drug use: Never FAMILY HISTORY Family History Problem Relation Name Age of Onset Cancer Father Estrada Peña Hypertension Maternal Grandfather Michael Holder Hypertension Paternal Grandmother Shagufta Hernandez Breast cancer Father's Sister Diana Hanks Hyperlipidemia Father's Sister Diana Hanks Hypertension Father's Sister Diana Hanks Hypertension Father's Sister Lakisha Wolfgang Barry Hypertension Father's Brother Tucker Peña Seizures Brother Sean Peña Stroke Mother's Brother Adelso Holder SURGICAL HISTORY Past Surgical History: Procedure Laterality Date ABDOMINAL SURGERY March 2019 MR ANGIOGRAM CHEST WO IV CONTRAST 08/15/2022 MR ANGIOGRAM CHEST WO IV CONTRAST 08/15/2022 REVIEW OF SYSTEMS Review of Systems: Review of Systems Constitutional: Negative. HENT: Negative. Eyes: Negative. Respiratory: Negative. Cardiovascular: Negative. Gastrointestinal: Negative. Genitourinary: Negative. Musculoskeletal: Negative. Skin: Negative. Neurological: Negative. All other systems reviewed and are negative. Hematological: Negative. Endocrine: Negative. Allergic/Immunologic: Negative. OBJECTIVE Objective: Physical Exam Constitutional: Appearance: Normal appearance. She is well-developed. Cardiovascular: Rate and Rhythm: Normal rate and regular rhythm. Pulmonary: Effort: Pulmonary effort is normal. Breath sounds: Normal breath sounds. Abdominal: General: Bowel sounds are normal. There is no distension. Palpations: Abdomen is soft. Tenderness: There is no abdominal tenderness. There is no guarding or rebound. Musculoskeletal: General: No swelling. Normal range of motion. Right lower leg: No edema. Left lower leg: No edema. Neurological: Mental Status: She is alert and oriented to person, place, and time. Skin: General: Skin is warm and dry. Psychiatric: Mood and Affect: Mood normal. Behavior: Behavior normal. Vitals and nursing note reviewed. Exam conducted with a breaker machine operator present. Vitals: Estimated body mass index is 27.6 kg/m as calculated from the following: Height as of 05/27/22: 5' 4 . Weight as of this encounter: 160 lb 12.8 oz. BP: 100/64 Patient's last menstrual period was 06/02/2023. ASSESSMENT & PLAN ICD-10-CM 1. 28 weeks gestation of Z3A.28 POCT urinalysis dipstick manually resulted 2. Third trimester Z34.93 POCT urinalysis dipstick manually resulted Return OB: Patient presents today for a routine obstetrics appointment. Patient is currently 28w2d . Patient states she is doing well but has complaints of being tired due to current . Patient has verbalizes frequent movement. labor precautions was discussed/given and patient was instructed to perform kick counts three times a day. Patient does have some right sided pain does not improve with medication, heat does help she did have ultrasound and labs while in ER and this was normal. Discuss a massage with patient to see if this would help. Orders Placed This Encounter Procedures POCT urinalysis dipstick manually resulted Follow Up: Patient is to return to office in 2 week for routine OB appointment. Documented by Anastasia Mcdowell LPN on behalf of: TAVIA Parsons documented in this encounter [facility] 10-07-2023 Note Lonnie Peres [address] [facility] [address] October 07, 2023 Patient: Lisa Cardenas Date of : 1995 Date of Visit: 10/07/2023 Dear Herve Will MD: I had the pleasure of seeing Lisa Cardenas, at our pediatric cardiology clinic on 10/07/2023 for Cardiac follow-upSara Gonzalez is a [age] y.o. female With a [...] use. She is scheduled to fly to [place] to see her in the near future [...] Normal biventricular systoli (more content not included)... [facility] 10-07-2023 Note Outpatient echo Must use antibiotic for dental procedures May fly Passive second stage deliver in [facility] 09-22-2023 History of Present illness Narrative RFC: Patient with thyroid nodule. Most recent US showing nodule TI-RADS 3 Regan Schaeffer, CHANNEL EXECUTIVE-* HPI: Ms. Cardenas is a 28 y.o. [...] Hyperlipidemia, Hyperthyroidism, Hypogonadism male, Hypothyroidism, Liver disease, DC (myocardial infarction), Migraine, Multinodular goiter, LADY (obstructive [...] hours as needed. lidocaine viscous-Alum & Mag Sjkleudmu-Deqaal-ebsrdxdxnoGOLIZ oral mouthwash Swish and swallow 15mL by mouth every 6 hours as needed. norgestimate-ethinyl estradiol (Sprintec 28) 0.25-35 MG-MCG tablet Take 1 tablet by mouth at bedtime. nystatin 320512 UNIT/ML oral suspension Swish and swallow 10 [...] Echogenicity: Hyperechoic or isoechoic (1 point) Shape: Cpwco-kvzw-nnfj (0 points) Margin: Smooth (0 points) Echogenic [...] Fellow, Division of Endocrinology, Diabetes, and Metabolism [facility] [address] [place] [address] No follow-ups on file. Patient has verified [...] Dr. Lunsford in 2019, Dr. Amato in 2018 in regard to her thyroid nodule. Last [...] Fellow, Division of Endocrinology, Diabetes, and Metabolism [facility] [place] [address] documented in this encounter [facility] 09-22-2023 Instructions Latrice Glover MD - 09/22/2023 1:30 PM EDT It was great seeing you today! Division of Endocrinology Outpatient Care [facility] Follow-up appointments: Please arrive at least [...] Any non-urgent results will be relayed via [employer] if you have signed up for this service or via a letter through the mail and/or phone call. Communication with your provider: - [facility] MyChart is highly recommended as the most efficient [...] help perpare you for your future visits: [email or web address] --> Patient Care section. Sincerely, Latrice Glover MD Fellow, Division of Endocrinology, Diabetes, and Metabolism [facility] [address] [phone] documented in this encounter [facility] 09-22-2023 Procedure note Associated Ord er(s): CHG US SOFT TISSUE HEAD & NECK REAL TIME IMGE DOCM Ms. Cardenas was seen and examined with Dr. Glover, I independently verified the findings on US and agree with the documented report - thyroid ultrasound report appears in the notes tab. [facility] 09-22-2023 Procedure note Associated Ord er(s): CHG US SOFT TISSUE HEAD & NECK REAL TIME IMGE DOCM Ms. Cardenas was seen and examined with Dr. Glover, I independently verified the findings on US and agree with the documented report - thyroid ultrasound report appears in the notes tab. documented in this encounter [facility] 12-24-2022 History of Present illness Narrative Chief Complaint: Chief Complaint Patient presents with New Patient Reports right side of neck with questionable swelling, continues to have problems with food getting stuck. Has to wash down food with liquids. HPI: Lisa Cardenas is a 27 y.o. female smoker / non-smoker who presents 12/24/22 to the [facility] and Neck Surgical Oncology Clinic for [...] Laterality: Bilateral; Surgeon: Jigar Hutchins MD; Location: [facility] MAIN OR TONSILLECTOMY Bilateral 05/10/2021 Laterality: Bilateral; Surgeon: Charlotte Cárdenas MD; Location: [facility] SAME DAY SURGERY MAIN OR CHOLECYSTECTOMY ROBOTIC N/A 04/06/2019 Laterality: N/A; Surgeon: Ramin Denney MD; [facility] MA[facility] OR WISDOM TEETH EXTRACTION Social [...] 1 Bottle 0 lidocaine viscous-Alum & Mag Oaoxwdkxs-Ltpifj-vewrrecimuALPOQ oral mouthwash Swish and swallow 15mL by mouth every 6 hours as needed. 240 mL 0 norgestimate-ethinyl estradiol (Sprintec 28) 0.25-35 MG-MCG tablet Take 1 tablet by mouth at bedtime. nystatin [id number] UNIT/ML oral suspension Swish and swallow 10 [...] / non-smoker who presents 12/24/22 to the [facility] Head and Neck Surgical Oncology Clinic for [...] Laterality: Bilateral; Surgeon: Jigar Hutchins MD; Location: [facility] MAIN OR TONSILLECTOMY Bilateral 05/10/2021 Laterality: Bilateral; Surgeon: Charlotte Cárdenas MD; Location: [facility] SAME DAY SURGERY MAIN OR CHOLECYSTECTOMY ROBOTIC N/A 04/06/2019 Laterality: N/A; Surgeon: Ramin Denney MD; [facility] WISDOM TEETH EXTRACTION Social [...] 1 Bottle 0 lidocaine viscous-Alum & Mag Nyhxphuyy-Kykhlm-ebhemmewouRHEIH oral mouthwash Swish and swallow 15mL by mouth every 6 hours as needed. 240 mL 0 norgestimate-ethinyl estradiol (Sprintec 28) 0.25-35 MG-MCG tablet Take 1 tablet by mouth at bedtime. nystatin 196755 UNIT/ML oral suspension Swish and swallow 10 [...] decision making for Ms. Cardenas with Regan Schaeffer, VERITO-LIABILITY CLAIMS EXAMINER. Details of my interview, examination findings, and medical decision-making confirmed the findings above. I have personally amended the documentation where appropriate. Doing well based on my examination. Fu/ in PRN if above tests results are not concerning. documented in this encounter [facility] 11-20-2022 History of Present illness Narrative Maternal- Medicine (High Risk Obstetrics) Consultation Indication for consultation: Congenital Bicuspid aortic valve Referring Provider: Herve Will MD History Lisa Cardenas is a 27yo G0 LMP [id number] using nothing for contraception who presents for preconception consultation in the setting of hx congenital bicuspid aortic valve. Her history is also notable for a history of exercise induced asthma and thyroid nodule. She feels well today and has no complaints or concerns. She was recently seen by Dr. Peraza (Peds Cardiology) for preconception counseling on 05/21/2022 at [...] [facility]. She does not currently have an shearing shed hand. Ms. Lisa Cardenas has the following problems [...] N/A; Surgeon: Ramin Denney MD; [facility] OR WISDOM TEETH EXTRACTION - No [...] 1 Bottle 0 lidocaine viscous-Alum & Mag Zbjjzcslv-Dxrpvc-fqppppdotcEWFRR oral mouthwash Swish and swallow 15mL by mouth every 6 hours as needed. 240 mL 0 norgestimate-ethinyl estradiol (Sprintec 28) 0.25-35 MG-MCG tablet Take 1 tablet by mouth at bedtime. nystatin [id number] UNIT/ML oral suspension Swish and swallow 10 [...] . --. 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 PULSE SEQUENCES: SSFP cine, HASTE morphology, 3D [...] aortic valve and has been followed by [facility]. The patient is currently asymptomatic from a cardiac standpoint, but is at risk for aortic dissection (especially given known ascending aortic dilation), heart failure, DC, and arrhythmias due to expected cardiovascular changes [...] as Marfan syndrome. 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 Thank [...] and Gynecology Division of Maternal Medicine [facility] documented in this encounter [facility] 06-05-2021 Instructions Charlotte Cárdenas MD - 06/05/2021 11:42 AM EDT ASSESSMENT/PLAN: Status post tonsillectomy Healing well Pathology benign Followup as needed documented in this encounter [facility] 06-05-2021 History of Present illness Narrative POSTOPERATIVE [...] Followup as needed documented in this encounter [facility] Evaluation note Diagnosis Postop check- Primary Follow-up examination, following unspecified surgery [facility] Diagnosis Encounter for preconception consultation- Primary Bicuspid aortic valve Congenital insufficiency of aortic valve [facility] Diagnosis Lymphadenopathy- Primary Enlargement of lymph nodes [facility] Diagnosis Lymphadenopathy Enlargement of lymph nodes [facility] Diagnosis Lymphadenopathy Enlargement of lymph nodes [facility] Diagnosis Thyroid nodule Nontoxic uninodular goiter [facility] Diagnosis Thyroid nodule- Primary Nontoxic uninodular goiter [facility] Diagnosis 28 weeks gestation of Third trimester state, incidental [facility]* Attachments The following attachments cannot be sent through Care Everywhere. * [facility] SMOKING CESSATION LINKS [facility] Reason for Referral Status Reason Specialty Diagnoses / Procedures Referred By Contact Referred To Contact New Request Diagnoses Other fatigue Lymphadenopathy of head and neck Procedures US NECK SOFT TISSUE Darryn Kennedy, LIABILITY CLAIMS EXAMINER [address] [address] Specialty Diagnoses / Procedures Referred By Contac t Referred To Contact Diagnoses Lymphadenopathy Procedures XR FLUORO MODIFIED BARIUM SWALLOW-ENT ONLY CHG RADIOLOGIC EXAM ESOPHAGUS SINGLE CONTRAST STUDY Regan Schaeffer, CHANNEL EXECUTIVE-LIABILITY CLAIMS EXAMINER [address] [place] [address] Referral ID Status Reason Start Date Expiration Date V isits Requested Visits Authorized [id number] Auth Not Needed 12/24/2022 01/18/2024 1 1 Specialty Diagnoses / Procedures Referred By Contac t Referred To Contact Diagnoses Lymphadenopathy Regan Schaeffer, CHANNEL EXECUTIVE-LIABILITY CLAIMS EXAMINER [address] [place] [address] Referral ID Status Reason Start Date Expiration Date V isits Requested Visits Authorized [id number] Pending Review 12/24/2022 01/18/2024 1 1 Specialty Diagnoses / Procedures Referred By Contac t Referred To Contact Diagnoses Lymphadenopathy Procedures CT NECK WITH CONTRAST GA CT NECK TISSUE CONTRAST Regan Schaeffer, CHANNEL EXECUTIVE-LIABILITY CLAIMS EXAMINER [address] [place] [address] Referral ID Status Reason Start Date Expiration Date Visits Re quested Visits Authorized [id number] Closed 12/24/2022 01/18/2024 1 1 Referral ID Status Reason Start Date Expiration Date Visits Re quested Visits Authorized [id number] Closed 12/24/2022 01/18/2024 1 1 Specialty Diagnoses / Procedures Referred By Contac t Referred To Contact Diagnoses Thyroid nodule Procedures US THYROID GA US,HEAD/NECK TISSUES,REAL TIME Herve Will MD [address] [place] [address] [facility] [address] [place] [address] Referral ID Status Reason Start Date Expiration Date V isits Requested Visits Authorized [id number] New Request 05/27/2023 06/20/2024 1 1 Specialty Diagnoses / Procedures Referred By Contac t Referred To Contact Diagnoses Thyroid nodule Procedures US [facility] Andres Torres MD [address] [facility] [address] [place] [address] Referral ID Status Reason Start Date Expiration Date V isits Requested Visits Authorized [id number] New Request 09/22/2023 10/16/2024 1 1 Assessments Diagnosis Other fatigue Lymphadenopathy of head and neck Summary Purpose Family History No Family History Records FoundNo Family History Records FoundNo Family History Records FoundNo Family History Records FoundNo Family History Records FoundNo Family History Records FoundNo Family History Records FoundNo Family History Records Found Advance Directives Latest Code Status on File Code Status [...] section and content) DATE CREATED AUTHOR 08/07/2020 [facility] DATE CREATED AUTHOR AUTHOR'S ORGANIZ ATION 05/28/2022 [facility] DATE CREATED AUTHOR AUTHOR'S ORGANIZ ATION 05/24/2023 [facility] DATE CREATED AUTHOR AUTHOR'S ORGANIZ ATION 09/26/2023 [facility] DATE CREATED AUTHOR AUTHOR'S ORGANIZ ATION 11/19/2023 [facility] DATE CREATED AUTHOR AUTHOR'S ORGANIZ ATION 12/04/2023 [facility] DATE CREATED AUTHOR AUTHOR'S ORGANIZ ATION 12/17/2023 [facility] DATE CREATED AUTHOR AUTHOR'S ORGANIZ ATION 12/19/2023 [facility] dical Specialists EPIC Reason for Visit (unrecogniz ed section and content) Reason Comments Post Op Visit TONSILLECTOMY - Bila teral with Charlotte Cárdenas MD on 05/10/2021, pt did have some bleeding post op, doing well now, some tenderness to surgical site. Specialty Diagnoses / Procedures Referred By Charityac t Referred To Contact Diagnoses Bicuspid aortic valve Congenital heart disease Procedures MRI ANGIO CHEST WITH AND WITHOUT CONTRAST MRA W/O FOL W/CONT, CHEST Chepe Peraza MD [address] [place] [address] [facility] [address] [place] [address] Referral ID Status Reason Start Date Expiration Date V isits Requested Visits Authorized [id number] Auth Not Needed 05/29/2022 06/23/2023 1 1 Reason Comments Problem Reason Comments New Patient Reports right side o f neck with questionable swelling, continues to have problems with food getting stuck. Has to wash down food with liquids. Specialty Diagnoses / Procedures Referred By Contac t Referred To Contact Otolaryngology Diagnoses SCOPE. Pt saw Dr Armas in 11/2018. And he told her if anything comes up let him know. She is having neck swelling on the right and it feels like their are 2 hard knot on her neck. Procedures NEW PATIENT W/ SCOPE Self, Self Emile Armas MD [address] [place] [phone] Referral ID Status Reason Start Date Expiration Date Visits Re quested Visits Authorized [id number] Closed 12/24/2022 01/18/2024 1 1 Specialty Diagnoses / Procedures Referred By Contac t Referred To Contact Diagnoses Lymphadenopathy Procedures CT NECK WITH CONTRAST GA CT NECK TISSUE CONTRAST Regan Schaeffer, CHANNEL EXECUTIVE-LIABILITY CLAIMS EXAMINER [address] [place] [address] Referral ID Status Reason Start Date Expiration Date Visits Re quested Visits Authorized [id number] Closed 12/24/2022 01/18/2024 1 1 Specialty Diagnoses / Procedures Referred By Contac t Referred To Contact Diagnoses Lymphadenopathy Procedures XR FLUORO MODIFIED BARIUM SWALLOW-ENT ONLY CHG RADIOLOGIC EXAM ESOPHAGUS SINGLE CONTRAST STUDY Regan Schaeffer, CHANNEL EXECUTIVE-LIABILITY CLAIMS EXAMINER [address] [place] [address] Referral ID Status Reason Start Date Expiration Date Visits Re quested Visits Authorized [id number] Closed 12/24/2022 01/18/2024 1 1 Specialty Diagnoses / Procedures Referred By Contac t Referred To Contact Diagnoses Thyroid nodule Procedures US THYROID GA US,HEAD/NECK TISSUES,REAL TIME Herve Will MD [address] [place] [address] [facility] [address] [place] [address] Referral ID Status Reason Start Date Expiration Date V isits Requested Visits Authorized [id number] New Request 05/27/2023 06/20/2024 1 1 Reason Comments Thyroid Nodule Specialty Diagnoses / Procedures Referred By Emaunel rodriguez Referred To Contact Endocrinology, Diabetes & Metabolism Diagnoses Thyroid nodule Regan Schaeffer, CHANNEL EXECUTIVE-LIABILITY CLAIMS EXAMINER [address] [place] [address] Referral ID Status Reason Start Date Expiration Date V isits Requested Visits Authorized [id number] Pending Review 06/04/2023 06/28/2024 1 1 Reason Comments Routine Visit Care Teams (unrecognized sec tion and content) Intern Architect Relationship Specialty Start Date End Date Herve Will MD [address] [place] [address] PCP - General Family Medicine 09/23/19 Chepe Peraza MD [address] [place] [phone] Rubber Moulding Machine Operator Pediatrics 04/30/21 Intern Architect Relationship Specialty Start Date End Date Herve Will MD [address] [place] [address] PCP - General Family Medicine 09/23/19 [place] [address] [place] [phone] Rubber Moulding Machine Operator Pediatrics 04/30/21 Intern Architect Relationship Specialty Start Date End Date Herve Will MD [address] [place] [address] PCP - General Family Medicine 09/23/19 Chepe Peraza MD [address] [place] [address] Rubber Moulding Machine Operator Pediatrics 04/30/21 Intern Architect Relationship Specialty Start Date End Date Herve Will MD [address] [place] [address] PCP - General Family Medicine 09/23/19 Chepe Peraza MD [address] [place] [phone] Rubber Moulding Machine Operator Pediatrics 04/30/21 Intern Architect Relationship Specialty Start Date End Date Herve Will MD [address] [place] [address] PCP - General Family Medicine 09/23/19 Chepe Peraza MD [address] [place] [address] Rubber Moulding Machine Operator Pediatrics 04/30/21 Intern Architect Relationship Specialty Start Date End Date Herve Will MD [address] [place] [phone] PCP - General Family Medicine 09/23/19 Chepe Peraza MD [address] [place] [address] Rubber Moulding Machine Operator Pediatrics 04/30/21 Intern Architect Relationship Specialty Start Date End Date Herve Will MD [address] [phone] PCP - General Family Medicine 09/23/19 Chepe Peraza MD [address] [place] [address] Rubber Moulding Machine Operator Pediatrics 04/30/21 Intern Architect Relationship Specialty Start Date End Date Herve Will MD [address] [place] [address] PCP - General Family Medicine 09/23/19 Chepe Peraza MD [address] [place] [id number] [employer] [facility] 04/30/21 FOR RECORDS PERTAINING [...] BE BASED ON THE PRIMARY CLINICAL RECORDS. [employer] provides no warranty or guarantee of the accuracy or completeness of information in this document.
[2023-12-27 21:03] VITALS: TEMP 36.4
[2023-12-27 21:04] VITALS: BP 109/70; PULSE 74
[2023-12-27 21:07] LABS: Bilirubin Urine NEGATIVE (NEGATIVE); Blood Urine NEGATIVE (NEGATIVE); Clarity Urine CLEAR (CLEAR); Color Urine LT. YELLOW (YELLOW); Glucose Urine UA NEGATIVE (NEGATIVE); Ketones Urine TRACE mg/dL (NEGATIVE); Leukocyte Esterase Urine NEGATIVE (NEGATIVE); Nitrite Urine NEGATIVE (NEGATIVE); Protein Urine NEGATIVE (NEG/TRACE); Specific Gravity Urine <=1.005 (1.005-1.025); Urobilinogen Urine 0.2 EU/dL (0.2-1.0)
[2023-12-27 21:09] LABS: Urine Microscopic Indicated NO
[2023-12-27 21:15] VITALS: TEMP 36.4
== END 2023-12-27 23:25 | disposition home or self-care (01) ==
LOC: FBC 20:19
PROVIDERS: Admitting Provider Obstetrics & Gynecology; Visit Provider Obstetrics & Gynecology
DX: O47.03 False labor before 37 completed weeks of gestation, third trimester (principal); Z3A.29 29 weeks gestation of pregnancy
CPT/HCPCS: 59025; 81003; G0378; G0379

== ENCOUNTER 2023-12-30 11:51 | Outpatient (OUT) | payer OTHER, SELFPAY ==
--- NOTE | 2023-12-30 | US_ITS ---
[address] [address] Patient Name: ADRY LEVY MRN: [id number] date: 1995 Sex: F Assigned Patient Location: [facility] Current Patient Location: [facility] Accession/Order Number: [id number] Exam Date: 12/30/2023 11:57 Report Date: 12/30/2023 13:07 At the request of: RICKY PHAM Procedure: US OB cervical length EXAMINATION: US OB amniotic fluid vol, US OB cervical length HISTORY: VAGINAL DISCHARGE COMPARISON: No relevant comparison available. FINDINGS: position: Cephalic presentation, longitudinal lie Amniotic fluid: 18.7 cm Largest fluid pocket: 5.8 cm Heart rate: 133 beats minute Cervix: 4.2 cm, closed Clinical age: 30 weeks 1 day Clinical YE: 03/08/2024 US/US OB cervical length IMPRESSION: Normal amniotic fluid index Closed cervix measuring 4.2 cm in length Electronically authenticated by: EULOGIO BARCLAY Date: 12/30/2023 13:07
--- NOTE | 2023-12-30 | US_ITS ---
[address] [address] Patient Name: ADRY LEVY MRN: [id number] date: 1995 Sex: F Assigned Patient Location: [facility] Current Patient Location: [facility] Accession/Order Number: [id number] Exam Date: 12/30/2023 11:57 Report Date: 12/30/2023 13:07 At the request of: RICYK PHAM Procedure: US OB amniotic fluid vol EXAMINATION: US OB amniotic fluid vol, US OB cervical length HISTORY: VAGINAL DISCHARGE COMPARISON: No relevant comparison available. FINDINGS: position: Cephalic presentation, longitudinal lie Amniotic fluid: 18.7 cm Largest fluid pocket: 5.8 cm Heart rate: 133 beats minute Cervix: 4.2 cm, closed Clinical age: 30 weeks 1 day Clinical YE: 03/08/2024 US/US OB amniotic fluid vol IMPRESSION: Normal amniotic fluid index Closed cervix measuring 4.2 cm in length Electronically authenticated by: EULOGIO BARCLAY Date: 12/30/2023 13:07
--- OUTSIDE RECORDS SUMMARY | 2023-12-30 11:54 | XMS_ITS | CCD ---
Author Organization [facility] Care Team Providers Care Carpenter Prototype Name Role Phone Unavailable Unavailable Unavailable Herve Jimenez MD Primary Care Provider Chepe Peraza MD Unavailable Herve Jimenez MD Primary Care Unavail able Cristian DORADO, Jake Og Attending UnavailHerve Chiang MD Primary Care Unavail able Cristian DORADO, Jake Og Attending Unavailfred Foster MD, Jake Og Attending UnavailHerve Chiang MD Primary Care Unavail able Herve Jimenez MD Primary Care Provider [phone] Chepe Peraza MD Unavailable [phone] Herve Jimenez MD Primary Care Provider HERVE JIMENEZ Attending Unavailable Chepe Peraza MD Unavailable LATRICE HALL Attending Unavailable BARBARA HERVE J Primary Care Unavailable REGAN NEVES Referring Unavailable SHOLADANKER HERVE J Primary Care Unavailable SELF, SELF Referring Unavailable DAMON BELLE K Admitting Unavailable BELLE JOSE Attending Unavailable SELF, SELF Referring Unavailable OZER, ENVER Attending Unavailable SHOEMAKER, HERVE J Primary Care Unavailable REGAN NEVES M Attending Unavailable REGAN NEVES M Referring Unavailable SHOEMAKER, HERVE J Primary Care Unavailable SHOEMAKER, HERVE J Primary Care Unavailable REGAN NEVES M Referring Unavailable OZER, ENVER Attending Unavailable OZER, ENVER Attending Unavailable SELF, SELF Referring Unavailable SHOLADANKER HERVE J Primary Care Unavailable REGAN NEVES M Referring Unavailable OZER, ENVER Attending Unavailable BARBARA HERVE J Primary Care Unavailable BARBARA HERVE J Attending Unavailable BARBARA, HERVE J Referring Unavailable BARBARA HERVE J Primary Care Unavailable SAMMY PERAZA Referring Unavailable HERVE JIMENEZ Primary Care Unavailabl e DUARTE BERNARD Attending Unavailable THERESE GLEASON Referring Unavailable HERVE JIMENEZ Primary Care Unavailabl e CHEPE PERAZA Referring Unavailable HERVE JIMENEZ Primary Care Unavailabl e SAMMY PERAZA R Referring Unavailable BARBARA HERVE KENYA Primary Care Unavailabl e SANTI JERONIMO Attending Unavailable IWONA JOSEPH Referring Unavailabl e BARBARA, HERVE ZAMBRANO Primary Care Unavailabl e CHEPE PERAZA Attending Unavailable FRU DARRYN Primary Care Unavailable DU PHILIP Referring Unavailable FRU, DARRYN Primary Care Unavailable MONICA SOFIA Attending Unavailable DI PANCHAL Attending Unavailable SAMMY PERAZA Attending Unavailable ELLA NICOLE Attending Unavailable SAMMY PERAZA Attending Unavailable DEBBIE, ELLA Attending Unavailable DEBBIE, ELLA Attending Unavailable Unavailable Primary Care Provider Unavailabl e Allergies Allergy Classification Reported Allergen(s) Allergy Type Date of Onset Reaction(s) Facility (18 sources) Amoxicillin; Translations: [amoxicillin] Drug Allergy 04-14-19 13 Rash, Unknown [facility] Work Phone: (8 sources) Clarithromycin; Translations: [clarithromycin] Drug Allergy 10-07-19 16 [facility] Work Phone: (13 sources) Clindamycin; Translations: [clindamycin] Drug Allergy 03-16-19 18 [facility] Work Phone: (18 sources) Doxycycline; Translations: [doxycycline] Drug Allergy 04-14-19 13 Unknown [facility] Work Phone: (10 sources) Clarithromycin Propensity to adverse reactions to drug 10-07-19 16 Rash, Unknown [facility] Work Phone: (6 sources) Erythromycin; Translations: [ERYTHROMYCIN] Drug Allergy 04-14-19 13 [facility] Repository (6 sources) Spironolactone; Translations: [SPIRONOLACTONE] Drug Allergy 05-27-19 24 Dizziness [facility] Repository (1 source) Lincomycin; Translations: [LINCOMYCIN] Drug Allergy 07-13-19 15 [facility] Repository (4 sources) Clindamycin/Lincom ycin Drug Intolerance 07-13-19 Unknown [...] / zinc oxide 20 mg oral tablet (10 sources) Vitamin B12, Vitamin D, Vitamin C [...] 0 05/22/2021 Active lidocaine viscous-Alum & Mag Jcfuuxnok-Wbdpks-wyyisuhohtHVTMA oral mouthwash (8 sources) Start: 05-22-2021 take 15 mL by mouth every six hours as needed lidocaine viscous-Alum & Mag Zligjdthe-Fyplyp-kzhmaafejvOEFXB oral mouthwash Swish and swallow 15mL by mouth every 6 hours as needed. 240 mL 05/22/2021 Active Start: 05-22-2021 take 15 mL by mouth every six hours as needed lidocaine viscous-Alum & Mag Cinyobswl-Wxgfvf-hxxdsfkxihTPADC oral mouthwash Swish and swallow 15mL by mouth every 6 hours as needed. 240 mL 0 05/22/2021 Active nystatin 510267 unt/ml oral suspension (8 sources) Polyene Antifungal Start: 05-16-2021 take 10 mL by mouth four times daily nystatin [id number] UNIT/ML oral suspension Swish and swallow 10 mL 4 times daily. 280 mL 05/16/2021 Active [place]-3 Fatty Acids (OMEGA 3 PO) (4 sources) [place]-3 Fatty Ac ids (OMEGA 3 PO) Take [...] NEGATED: Highlighted row has been ruled out!Unclassified (4 sources) No known active problems 05-27-2023 Results Test Name Value Interpretation Reference Range Facility [facility] UA (CLEAN/CATCH) DIRECTOR EXTERNAL COMMUNICATIONS/GIUSEPPE RO IF IND.on 12-27-2023 BILIRUBIN URINE Negative NEGATIVE [facility] thcare BLOOD URINE Negative NEGATIVE [facility] re Clarity (U) CLEAR CLEAR [facility] Color (U) LT. YELLOW YELLOW [facility] [employer] GLUCOSE URINE UA Negative NEGATIVE mg/dL [facility] Interpretation and review of laboratory results Abnormal [facility] Ketones Ql (U) TRACE Abnormal NEGATIVE mg/dL [facility] Leukocyte esterase Test strip Ql (U) Negative NEGATIVE [facility] Health[facility] e NITRITE URINE Negative NEGATIVE Merged with [facility] care pH (U) 7.0 [pH] 5.0 - 9.0 [facility] e PROTEIN URINE Negative NEG/TRACE mg/dL [facility] SPECIFIC GRAVITY URINE <=1.005 Abnormal 1.005 - 1.025 [facility] URINE MICROSCOPIC INDICATED NO [facility] UROBILINOGEN URINE 0.2 EU/dL 0.2 - 1.0 EU/dL [facility] Health[facility] e Urinalysis macro (dipstick) panel (U)on 12-17-2023 Bilirubin, UA Negative Negative - 4(70) +++ mg/dL [facility] Blood, UA Negative Negative - 50 Sina/mcL [facility] Clarity, UA Clear [facility] Healthca re Color, UA Yellow [facility] Health[facility] Glucose, UA Negative Negative - 1999(110) ++++ mg/dL [facility] Interpretation and review of laboratory results Abnormal [facility] Ketones, UA Negative Negative - 160(16) ++++ mg/dL [facility] Leukocytes, UA Trace Negative - 500+++ Amos/mcL [facility] Nitrite, UA Negative Negative - Positive [facility] pH, UA 7.5 5 - 9 [facility] e Protein, UA Negative Negative - 1999(20) ++++ mg/dL [facility] Spec Grav, UA 1.020 1 - 1.03 [facility] Urobilinogen, UA 0.2 0.2 - 12 mg/dL [facility] e CBC with Diffon 12-09-2023 Abs. Basophil 0.09 k/uL Normal 0.00-0.20 [facility] Comment on above: Performed By: #### C P, CDP #### [facility] [address] [place], [place] [id number] Process Line Operator: Clark Mata MD Abs.Imm.Granulocyte 0.17 k/uL Normal 0.00-0.30 [facility] Comment on above: Performed By: #### C P, CDP #### [facility] [address] [place] [address] Process Line Operator: Clark Mata MD Abs.Neutrophil (Seg) 5.63 k/uL Normal 1.50-8.10 [facility] Comment on above: Performed By: #### C P, CDP #### [facility] [address] [place] [address] [address], [place] [address] Process Line Operator: Clark Mata MD Basophils/100 WBC (Bld) 1 % Normal 0-2 [facility] Comment on above: Performed By: #### C P, CDP #### [address] [place] [address] Process Line Operator: Clark Mata MD Eosinophils (Bld) [#/Vol] 0.13 10*3/uL Normal 0.00-0.44 [facility] Comment on above: Performed By: #### C P, CDP #### [facility] [address] [place] [address] [place] [address] Process Line Operator: Clark Mata MD Eosinophils/100 WBC (Bld) 2 % Normal 1-4 [facility] Comment on above: Performed By: #### C P, CDP #### [address] [place], [place] [id number] Process Line Operator: Clark Mata MD Erythrocyte distribution width (RBC) [Ratio] 12.7 % Normal 11.8-14.4 [facility] Comment on above: Performed By: #### C P, CDP #### [facility] [address] [place], [facility]83 Process Line Operator: Clark Mata MD Hematocrit (Bld) [Volume fraction] 36.4 % Normal 36.3-47.1 [facility] Comment on above: Performed By: #### C P, CDP #### [facility] [address] [place], [facility]83 Process Line Operator: Clark Mata MD Hemoglobin (Bld) [Mass/Vol] 12.6 g/dL Normal 11.9-15.1 [facility] Comment on above: Performed By: #### C P, CDP #### [address] [place], [facility]83 Process Line Operator: Clark Mata MD Immature granulocytes/100 WBC (Bld) 2 % High 0 [facility] Comment on above: Performed By: #### C P, CDP #### [address] [place], [place] [id number] Process Line Operator: Clark Mata MD Lymphocytes (Bld) [#/Vol] 1.80 10*3/uL Normal 1.10-3.70 [facility] Comment on above: Performed By: #### C P, CDP #### [facility] [address] [place] [address] [place], [facility]83 Process Line Operator: Clark Mata MD Lymphocytes/100 WBC (Bld) 21 % Low 24-43 [facility] Comment on above: Performed By: #### C P, CDP #### [facility] [address] [place] [address] Process Line Operator: Clark Mata MD MCH (RBC) [Entitic mass] 30.4 pg Normal 25.2-33.5 [facility] Comment on above: Performed By: #### C P, CDP #### [facility] [address] [place], [place] [id number] Process Line Operator: Clark Mata MD MCHC (RBC) [Mass/Vol] 34.6 g/dL Normal 28.4-34.8 [facility] Comment on above: Performed By: #### C P, CDP #### [facility] [address] [place], [facility]83 Process Line Operator: Clark Mata MD MCV (RBC) [Entitic vol] 87.9 fL Normal 82.6-102.9 [facility] Comment on above: Performed By: #### C P, CDP #### [address] [place], [facility]83 Process Line Operator: Clark Mata MD Monocytes (Bld) [#/Vol] 0.61 10*3/uL Normal 0.10-1.20 [facility] Comment on above: Performed By: #### C P, CDP #### [address] [place], [facility]83 Process Line Operator: Clark Mata MD Monocytes/100 WBC (Bld) 7 % Normal 3-12 [facility] Comment on above: Performed By: #### C P, CDP #### [address] [place], [facility]83 Process Line Operator: Clark Mata MD Neutrophil (Seg) 67 % High 36-65 [facility] Comment on above: Performed By: #### C P, CDP #### [facility] [address] [place], [place] [id number] Process Line Operator: Clark Mata MD NRBC Automated 0.0 per 100 WBC Normal 0.0 [facility] Comment on above: Performed By: #### C P, CDP #### [address] [place], [facility]83 Process Line Operator: Clark Mata MD Platelet mean volume (Bld) [Entitic vol] 10.7 fL Normal 8.1-13.5 [facility] Comment on above: Performed By: #### C P, CDP #### [facility] [address] [place], [place] 9[address]83 Process Line Operator: Clark Mata MD Platelets (Bld) [#/Vol] 162 10*3/uL Normal 138-453 [facility] Comment on above: Performed By: #### C P, CDP #### [facility] [address] [place], [place] [id number] Process Line Operator: Clark Mata MD RBC (Bld) [#/Vol] 4.14 10*6/uL Normal 3.95-5.11 [facility] Comment on above: Performed By: #### C P, CDP #### [address] [place] [address] Process Line Operator: Clark Mata MD WBC (Bld) [#/Vol] 8.4 10*3/uL Normal 3.5-11.3 [facility] Comment on above: Performed By: #### C P, CDP #### [address] [place], [place] 5462583 Process Line Operator: Clark Mata MD Comp Metabolic Profon 2023 Albumin [Mass/Vol] 3.7 g/dL Normal 3.5-5.2 [facility] Comment on above: Performed By: #### C P, CDP #### [facility] [address] [place], [place] 0923783 Process Line Operator: Clark Mata MD Albumin/Glob Ratio 1.4 Normal 1.0-2.5 [facility] Comment on above: Performed By: #### C P, CDP #### [facility] [address] [place] [address] Process Line Operator: Clark Mata MD Alkaline Phos 47 U/L Normal 35-104 [facility] Comment on above: Performed By: #### C P, CDP #### [facility] [address] [place], [place] 2290783 Process Line Operator: Clark Mata MD ALT [Catalytic activity/Vol] 13 U/L Normal 10-35 [facility] Comment on above: Performed By: #### C P, CDP #### [facility] [address] [place], [place] 8[address]83 Process Line Operator: Clark Mata MD Anion gap [Moles/Vol] 9 mmol/L Normal 9-16 [facility] Comment on above: Performed By: #### C P, CDP #### [facility] [address] [place], [place] [address]83 Process Line Operator: Clark Mata MD AST [Catalytic activity/Vol] 16 U/L Normal 10-35 [facility] Comment on above: Performed By: #### C P, CDP #### [facility] [address] [place] [address] Process Line Operator: Clark Mata MD Bilirubin [Mass/Vol] 0.3 mg/dL Normal 0.00-1.20 [facility] Comment on above: Performed By: #### C P, CDP #### [facility] [address] [place], [place] 3659283 Process Line Operator: Clark Mata MD BUN/CRE Ratio 17 Normal 9-20 [facility] Comment on above: Performed By: #### C P, CDP #### [facility] [address] [place], [place] 7424483 Process Line Operator: Clark Mata MD Calcium [Mass/Vol] 8.7 mg/dL Normal 8.6-10.4 [facility] Comment on above: Performed By: #### C P, CDP #### [facility] [address] [place], [place] 0[address]83 Process Line Operator: Clark Mata MD Chloride [Moles/Vol] 104 mmol/L Normal 98-107 [facility] Comment on above: Performed By: #### C P, CDP #### [facility] [address] [place], [place] 574[address]83 Process Line Operator: Clark Mata MD CO2 [Moles/Vol] 21 mmol/L Normal 20-31 [facility] Comment on above: Performed By: #### C P, CDP #### [facility] [address] [place], [place] 1421683 Process Line Operator: Clark Mata MD Creatinine [Mass/Vol] 0.6 mg/dL Normal 0.50-0.90 [facility] Comment on above: Performed By: #### C P, CDP #### [facility] [address] [place] [address] Process Line Operator: Clark Mata MD GFR/1.73 sq M.predicted among non-blacks MDRD (S/P/Bld) [Vol rate/Area] mL/min/{1.73_m2} Normal >60 [facility] Comment on above: Result Comment: These results [...] Performed By: #### C P, CDP #### [facility] [address] [place] [address] Process Line Operator: Clark Mata MD Glucose [Mass/Vol] 75 mg/dL Normal 74-99 [facility] Comment on above: Performed By: #### C P, CDP #### [facility] [address] [place], [place] 6869783 Process Line Operator: Clark Mata MD Potassium [Moles/Vol] 4.0 mmol/L Normal 3.7-5.3 [facility] Comment on above: Performed By: #### C P, CDP #### [facility] [address] [place], [place] 69[address]83 Process Line Operator: Clark Mata MD Protein [Mass/Vol] 6.2 g/dL Low 6.6-8.7 [facility] Comment on above: Performed By: #### C P, CDP #### [facility] [address] [place] [address] Process Line Operator: Clark Mata MD Sodium [Moles/Vol] 134 mmol/L Low 136-145 [facility] Comment on above: Performed By: #### C P, CDP #### [facility] [address] [place], [place] [address]283 Process Line Operator: Clark Mata MD Urea nitrogen [Mass/Vol] 10 mg/dL Normal 6-20 [facility] Comment on above: Performed By: #### C P, CDP #### [facility] [address] [place], [place] 35[address]83 Process Line Operator: Clark Mata MD Lipaseon 12-09-2023 Lipase [Catalytic activity/Vol] 41 U/L Normal 13-60 [facility] Comment on above: Performed By: #### L IP #### [facility] [address] [place] [address] Process Line Operator: Clark Mata MD UA w/Reflex Cultureon 2023 Bilirubin, SemiQt,Ur Negative Normal NEG [facility] Comment on above: Performed By: #### ARNOLD MARTINO #### [facility] [address] [place], [place] 6[address]83 Process Line Operator: Clark Mata MD Blood, Urine Negative Normal NEG [facility] Comment on above: Performed By: #### U AX, UMICAO #### [facility] [address] [place], [place] 1144883 Process Line Operator: Clark Mata MD Clarity (U) Clear Normal CLEAR [facility] Comment on above: Performed By: #### U AX, UMICAO #### [facility] [address] [place], [place] 1526883 Process Line Operator: Clark Mata MD Color (U) Yellow Normal YEL [facility] Comment on above: Performed By: #### U AX, UMICAO #### [address] [place], [place] 1279983 Process Line Operator: Clark Mata MD Glucose Ql (U) Negative Normal NEG [facility] Comment on above: Performed By: #### U AX, UMICAO #### [facility] [address] [place] [address] [place], [place] 315[address]83 Process Line Operator: Clark Mata MD Ketones Ql (U) Negative Normal NEG [facility] Comment on above: Performed By: #### U AX, UMICAO #### [address] [place], [place] 2148483 Process Line Operator: Clark Mata MD Leukocyte esterase Test strip Ql (U) Negative Normal NEG [facility] Comment on above: Performed By: #### U AX, UMICAO #### [facility] [address] [place] [address] [place], [place] 1697683 Process Line Operator: Clark Mata MD Nitrite,Ur Negative Normal NEG [facility] Comment on above: Performed By: #### U AX, UMICAO #### [address] [place], [place] 4184183 Process Line Operator: Clark Mata MD PH,Ur 7.0 Normal 5.0-9.0 [facility] Comment on above: Performed By: #### U AX, UMICAO #### [facility] [address] [place] [address] Process Line Operator: Clark Mata MD Protein Ql (U) Negative Normal NEG [facility] Comment on above: Performed By: #### U AX, UMICAO #### [facility] [address] [place], [place] 020[address]83 Process Line Operator: Clark Mata MD Spec. [place],Ur 1.015 Normal 1.010-1.020 [facility] Comment on above: Performed By: #### U AX, UMICAO #### [facility] [address] [place], [place] 74[address]83 Process Line Operator: Clark Mata MD Urobilinogen,Ur Normal Normal 0.0-1.0 [facility] Comment on above: Performed By: #### U AX, UMICAO #### [facility] [address] [place], [place] 645[address]83 Process Line Operator: Clark Mata MD US GALLBLADDER RUQon 024 [...] Sabi Leung MD 12/09/23 Final result Normal [facility] Urinalysis,Microon 4 Epithelial cells LM Ql (Urine sed) 0 TO 2 Normal 0-25 [facility] Comment on above: Performed By: #### U AX, UMICAO #### [facility] [address] [place] [address] Process Line Operator: Clark Mata MD Urine RBC's None Normal 0-2 [facility] Comment on above: Performed By: #### U AX, UMICAO #### [facility] [address] [place] [address] Process Line Operator: Clark Mata MD Urine WBC's 0 TO 2 Normal 0-5 [facility] Comment on above: Performed By: #### U AX, UMICAO #### [facility] [address] [place] [address] Process Line Operator: Clark Mata MD 12-03-2023 36 Echo order faxed over [facility] 12-02-2023 36 Called and left detailed message for patient [facility] 36 This will be fine Normal [facility] 11-24-2023 36 Patient called stating that they [facility] does not have any appointment for an echo until 32 week. She wants to know if it is okay for her to get it at 32 weeks or what else do you suggest. Please advise [facility] 11-23-2023 36 I called the Norma and I left a message on her voicemail that I would put an order in but she needs to call the [facility] scheduling line and get it scheduled in our office will fax the order to them. I asked her to schedule it for 30 weeks gestation. Please make sure that the order is faxed to [facility] scheduling. [facility] Orders Onlyon 11-23-2023 Orders Only [id number] RonaldNorma 1995 F Date Provider Department Center 11/23/2023 CHEPE GOODSON No family history on file [facility] 36on 11-21-2023 36 Pt called in stating [...] next apt with Dr. Peraza on 01/12. Normal [facility] Telephoneon 11-21-2023 Telephone [phone] Norma Cardenas 1995 F Date Provider Department Center 11/21/2023 CHEPE GOODSON No family history on file Reason for Visit and Comments: ECHO [Other] [facility] Office Visiton 10-07-2023 Follow-up visit [id number] Norma Cardenas 1995 F Date Provider Department Center 10/07/2023 CHEPE GOODSON No family history on file Level of Service:40417 [place] OFFICE/OUTPATIENT ESTABLISHED MOD MDM 30 MIN Reason for Visit and Comments: Heart Problem [54] - Transfer from [facility] - 18 wks [facility] CHG US SOFT TISSUE HEAD & NE CK REAL TIME IMGE [facility] 09-23-2023 Radiology Study observation (narrative) [facility] CHG US SOFT TISSUE HEAD & NE CK REAL TIME IMGE [facility] 09-22-2023 Andres Torres MD 09/23/2023 6:28 PM Ms. Cardenas was seen and examined with Dr. Hall, I independently verified the findings on US and agree with the documented report - thyroid ultrasound report appears in the notes tab. [facility] US Unspecified body regionOr dered By: Unassigned Pacs on 09-22-2023 [facility] Work Phone: US Unspecified body regionon 09-22-2023 Radiology Study observation (narrative) [facility] 36on 07-04-2023 36 Created in error Normal [facility] 36 Scheduled an appointment October 06 at 8:30am. [facility] 36 If this patient schedules a follow-up [...] her and left her message as well. [facility] 36on 07-03-2023 36 Patient is newly (4wks) and is currently scheduled in August for her yearly visit.. She is asking if she needs to reschedule to do the 20-24 wk gestational testing. PH: [phone] [facility] Telephoneon 07-03-2023 Telephone [phone] Norma Peña 1995 F Date Provider Department Center 07/03/2023 18623-TOPYJRAMIRO HAGER RPKailee PED [employer] No family history on file [facility] VZ Immunityon 06-23-2023 VZ Immunity 3.84 Normal >1.09 [facility] Comment on above: Result Comment: Interpretation: IMMUNE Reference Range: <0.91 Not Immune 0.91-1.09 Equivocal >1.09 Immune Performed By: #### V ZI #### [facility] [address] [place] [address] Process Line Operator: Bear Mejias MD US THYROIDon 06-03-2023 [...] Echogenicity: Hyperechoic or isoechoic (1 point) Shape: Rilep-ugpt-cjko (0 points) Margin: Smooth (0 points) Echogenic [...] using ACR TI-RADS. (JACR July 2016) Normal [facility] FREE T4on 05-23-2023 Free T4 [Mass/Vol] 1.0 ng/dL Normal 0.9-1.8 [facility] Comment on above: Order Comment: Locat ion: Performed By: #### L [id number], [id number] #### ANIL PRESSLEY ([id number]) [facility] ([facility]) [address] [facility] [facility], [facility] [address] [place] [address]11 TSHon 05-23-2023 TSH 2.599 MIU/mL Normal 0.550-4.780 [facility] Care [facility] Comment on above: Order Comment: Locat ion: Performed By: #### L [id number], [id number] #### ANIL PRESSLEY ([id number]) [facility] ([facility]) [address] [facility], [address] [place] [address]736 RF videography Hypopharynx a nd Esophagus Views [...] report for further details and dietary recommendations. [facility] Study observation (narrative) [facility] RF videography Hypopharynx a nd Esophagus Views W liquid and paste contrast PO during swallowingOrdered By: Gisele Hardy on 01-09-2023 [facility] Work [facility]: XR FLUORO MODIFIED BARIUM SW [...] for further details and dietary recommendations. Normal [facility] CT NECK WITH CONTRASTon 10-1 CT NECK [...] error, please notify the sender immediately at [phone] and permanently delete the original report and destroy any copies or printouts. Normal [facility] Clam Bed Worker Cytology Reporton 2022 Clam Bed Worker Cytology Report Clinical Information Specimen Collection Date: [...] smears in the future. 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 Patient reports some pain [...] and the last time she saw her seafood and service meat manager thought there might have been some dilation [...] will send patient for preconceptual counseling with [facility] because of her cardiac abnormality Follow-up [...] intractable, w/o (more content not included)... Normal [facility] Culture, Urineon 08-04-2020 RPT Microbiology results Abnormal [facility] Comment on above: Order Comment: Items in this order include: Culture, Urine Testing Performed By: [facility] [address] [place], [place] [address] [place] [address] Dr. Anil Pressley, Process Line Operator Result Comment: [place] Count: 10,000-25,000 CFU/ML Final Result: Escherichia [...] R Performed By: #### C 734 #### [facility] 488[facility] WomenBiofuelboxH[facility] [address] [place] [address] Culture, Urineon 03-14-2020 RPT Microbiology results Abnormal [facility] Comment on above: Order Comment: Items in this order include: Culture, Urine Testing Performed By: [facility] [address] [place] [address]. [place] [address] Dr. Shaunna Cummins, Process Line Operator Result Comment: [place] Count: >100,000 CFU/ML Final Result: Escherichia [...] R Performed By: #### C 734 #### [facility] [address] [place] [address] [address] [place] [address] Culture, Urineon 12-14-2019 RPT Microbiology results Abnormal [facility] Comment on above: Order Comment: Items in this order include: Culture, Urine Testing Performed By: [facility] [address] [place] [address]. [place] [address] Dr. Shaunna Cummins, Process Line Operator Result Comment: [place] Count: 50,000-75,000 CFU/ML Final Result: Escherichia [...] R Performed By: #### C 734 #### [facility] [address] [facility] [address] [place] [address] Vital Signs Date Time Vital Sign Value Performing Clinician Facility 12-17-2023 10:27-0400 Body mass index (BMI) [Ratio] 27.6 kg/m2 Ella SQUIRES Work Phone: [facility] 12-17-2023 10:27040 Body weight 72.94 kg Ella SQUIRES Work Phone: [facility] 12-17-2023 10:27-040 Diastolic blood pressure 64 mm[Hg] Ella SQUIRES Work Phone: [facility] 12-17-2023 10:27-0400 Systolic blood pressure 100 mm[Hg] Ella SQUIRES Work Phone: [facility] 09-22-2023 13:37-0400 Body height 162.6 cm Latrice Hall MD Work Phone: [facility] 09-22-2023 13:37-0400 Body mass index (BMI) [Ratio] 25.4 kg/m2 Latrice Hall MD Work Phone: [facility] 09-22-2023 13:37-0400 Body temperature 97.3 [degF] Latrice Hall MD Work Phone: [facility] 09-22-2023 13:37-0400 Body weight 67.13 kg Latrice Hall MD Work Phone: [facility] 09-22-2023 13:37-0400 Diastolic blood pressure 62 mm[Hg] Latrice Hall MD Work Phone: [facility] 09-22-2023 13:37-0400 Systolic blood pressure 114 mm[Hg] Latrice Hall MD Work Phone: [facility] 12-24-2022 16:30-0400 Body height 162.6 cm Regan Neves MARINA SALES AND SERVICE SUPERVISOR-BROWNELL OPERATOR Work Phone: [facility] 12-24-2022 16:30-0400 Body mass index (BMI) [Ratio] 23.17 kg/m2 Regan Neves MARINA SALES AND SERVICE SUPERVISOR-BROWNELL OPERATOR Work Phone: [facility] 12-24-2022 16:30-0400 Body weight 61.24 kg Regan Neves MARINA SALES AND SERVICE SUPERVISOR-BROWNELL OPERATOR Work Phone: [facility] 12-24-2022 16:30-0400 Diastolic blood pressure 68 mm[Hg] Regan Neves MARINA SALES AND SERVICE SUPERVISOR-BROWNELL OPERATOR Work Phone: [facility] 12-24-2022 16:30-0400 Heart rate 71 /min Regan Neves MARINA SALES AND SERVICE SUPERVISOR-BROWNELL OPERATOR Work Phone: [facility] 12-24-2022 16:30-0400 Systolic blood pressure 108 mm[Hg] Regan Neves MARINA SALES AND SERVICE SUPERVISOR-BROWNELL OPERATOR Work Phone: [facility] 12-24-2022 11:37-0400 Body mass index (BMI) [Ratio] 23.22 kg/m2 Emile Armas MD Work Phone: [facility] 12-24-2022 11:37-0400 Body temperature 98.2 [degF] Emile Armas MD Work Phone: [facility] 12-24-2022 11:37-0400 Body weight 61.37 kg Emile Armas MD Work Phone: [facility] 12-24-2022 11:37-0400 Diastolic blood pressure 78 mm[Hg] Emile Armas MD Work Phone: [facility] 12-24-2022 11:37-0400 Heart rate 73 /min Emile Armas MD Work Phone: [facility] 12-24-2022 11:37-0400 Respiratory rate 16 /min Emile Armas MD Work Phone: [facility] 12-24-2022 11:37-0400 SaO2% (BldA) [Mass fraction] 99 % Emile Armas MD Work Phone: [facility] 12-24-2022 11:37-0400 Systolic blood pressure 123 mm[Hg] Emile Armas MD Work Phone: [facility] Encounters Encounter Date Encounter Type Care Provider Facility Start: 12-27-2023 End: 12-27-2023 Clinisync Result Encounter Sammy Peraza DO Work Phone: [facility] External [facility] Unsolicited Start: 12-27-2023 End: 12-27-2023 Clinisync Result Encounter Sammy Abrahamo DO Work Phone: [facility] External [facility] Unsolicited Start: 12-17-2023 End: 12-17-2023 Bamboo flowsheet Ella SQUIRES Work Phone: [facility] Start: 12-17-2023 End: 12-17-2023 Bamboo flowsheet Ella SQUIRES Work Phone: [facility] Start: 12-17-2023 End: 12-17-2023 flow sheet Ella SQUIRES Work Phone: [facility] Comment on above: 28 weeks gestation o f ; Third trimester Start: 12-17-2023 End: 12-17-2023 ambulatory ELLA NICOLE Not Available Start: 12-09-2023 End: 12-09-2023 Emergency department patient visit [facility] Start: 11-26-2023 End: 11-26-2023 ambulatory ELLA NICOLE Not Available Start: 11-18-2023 End: 11-18-2023 ambulatory SAMMYDashawn PERAZA [facility] Start: 10-31-2023 End: 10-31-2023 ambulatory CHEPE A [facility] Start: 10-30-2023 End: 10-30-2023 ambulatory SAMMY ABRAHAMO Not Available Start: 10-20-2023 End: 10-20-2023 [facility] Start: 10-07-2023 End: 10-07-2023 [address] [facility] Start: 09-30-2023 End: 09-30-2023 ambulatory ELLA NICOLE Not Available Start: 09-22-2023 End: 09-22-2023 Office outpatient new 45 minutes Latrice Hall MD Work Phone: Endocrinology Outpatient Care [facility] Comment on above: Thyroid nodule (Prim subhash Dx) Start: 09-22-2023 ambulatory LATRICE HALL Facilit y:[facility] Start: 09-01-2023 End: 09-01-2023 ambulatory SAMMY STU Not Available Start: 07-31-2023 End: 07-31-2023 ambulatory DI PANCHAL Not Available Start: 06-20-2023 End: 06-20-2023 ambulatory D[facility]YN [facility] Start: 06-02-2023 ambulatory HERVE Benavides ility:[facility] Start: 06-02-2023 End: 06-02-2023 Subsequent hospital visit by physician Herve Jimenez MD Work Phone: Department of Radiology Comment on above: Arrived Start: 05-27-2023 End: 05-27-2023 ambulatory DI PANCHAL Not Available Start: 05-23-2023 End: 05-23-2023 ambulatory HERVE JIMENEZ [facility] Start: 01-09-2023 End: 01-09-2023 Subsequent hospital visit by physician Emile Armas MD Work Phone: Department of Radiology Comment on above: Arrived Start: 01-09-2023 ambulatory HERVE Benavides ility:[facility] Start: 12-24-2022 End: 12-24-2022 Subsequent hospital visit by physician Regan Neves MARINA SALES AND SERVICE SUPERVISOR-BROWNELL OPERATOR Work Phone: Imaging Outpatient Care [facility] Comment on above: Arrived Start: 12-24-2022 ambulatory REGAN BISHOPEN Facilit y:[facility] Start: 12-24-2022 End: 12-24-2022 Office outpatient new 45 minutes Emile Armas MD Work Phone: Department of Otolaryngology Comment on above: Lymphadenopathy (Alicia ramin Dx) Start: 12-24-2022 ambulatory SELF SELF Facility:[facility] Start: 11-20-2022 End: 11-20-2022 Office consultation new/estab patient 60 min Belle Barnard Damon DO Work Phone: [facility] [place] Comment on above: Encounter for precon ception consultation (Primary Dx); Bicuspid aortic valve Start: 11-20-2022 ambulatory HERVE JIMENEZ Fac ility:[facility] Start: 08-15-2022 End: 08-15-2022 Subsequent hospital visit by physician Chepe Peraza MD Work Phone: Cardiovascular Imaging Lab [facility] Comment on above: Canceled (Cancel Crowley son Not Listed - Please provide detailed information) Start: 05-21-2022 End: 05-22-2022 ambulatory Jake Foster MD Facility:[facility] Start: 06-05-2021 End: 06-05-2021 Postop follow up visit related to original px Charlotte Cárdenas MD Work Phone: [facility] [place] Comment on above: Postop check (Primar y Dx) Start: 03-18-2018 End: 03-18-2018 Patient encounter procedure Darryn E Brent Work Phone: Central Scheduling Comment on above: Other fatigue; Lymph adenopathy of head and neck Procedures Date Procedure Procedure Detail Performing Clinician Start: 12-27-2023 [facility] UA (CLEAN/CATCH) DIRECTOR EXTERNAL COMMUNICATIONS/MICRO IF IND. Sammy Stu DO Work Phone: Start: 12-17-2023 Urnls dip stick/tabl et rgnt non-auto w/o micrscp Ella SQUIRES Work Phone: Start: 09-22-2023 US Unspecified body region Latrice Hall MD Work Phone: Start: 09-22-2023 Us soft tissue head & neck real time imge docm Latrice Hall MD Work Phone: Start: 01-09-2023 Radiologic exam esop hagus single contrast study Regan Neves MARINA SALES AND SERVICE SUPERVISOR-BROWNELL OPERATOR Work Phone: Plan of Treatment Date Care Activity Detail Author Start: 05-28-2024 End: 05-28-2024 Patient encounter procedure 05/28/2024 10:40 AM EDT Office Visit [facility] [address] [place] [address] Di Panchal, PA [address] [place] [address] [facility] Start: 12-30-2023 End: 12-30-2023 Patient encounter procedure 12/30/2023 10:30 AM EDT Routine [facility] [address] [place] [id number] Sammy Peraza DO [address] Jake Pearce, [facility] Start: 12-17-2023 End: 12-17-2023 Patient encounter procedure 12/17/2023 10:20 AM EDT Routine [facility] [address] [place] [address] Ella Nicole PA [address] [place] [address] Arrived [facility] Comment on above: Arrived Start: 11-09-2023 Influenza vaccination INFLUENZA VACC INE (#1) [facility] Start: 06-03-2023 ambulatory Ambulatory Facility:[facility] Villanueva Start: 01-09-2023 End: 01-09-2023 ambulatory 01/09/2023 8:30 AM EDT Rehab Services Visit [facility] [address] [place] [address] [facility] Start: 01-09-2023 End: 01-09-2023 Patient encounter procedure 01/09/2023 8:30 AM EDT Appointment Department of Radiology [address] [place] [address] Department of Radiology Start: 12-24-2022 End: 12-25-2023 CT Neck W contrast IV [facility] Comment on above: Expected: 12/24/2022 , Expires: 12/25/2023 1 Occurrences starti ng 12/24/2022 until 12/24/2022 Start: 12-24-2022 End: 12-25-2023 RF videography Hypopharynx and Esophagus Views W liquid and paste contrast PO during swallowing XR FLUORO MODIFIED BARIUM SWALLOW-ENT ONLY Imaging Routine Lymphadenopathy Expected: 12/24/2022, Expires: 12/25/2023 [facility] Comment on above: Expected: 12/24/2022 , Expires: 12/25/2023 Start: 11-08-2022 COVID-19 VACCINE ( season) COVID-19 VACCINE ( season) [facility] Start: 11-08-2022 Influenza vaccination O [facility] Start: 11-08-2020 Influenza vaccination INFLUENZA VACC INE (#1) [facility] Start: 03-27-2018 End: 03-27-2018 Ambulatory 03/27/2018 Appointment Ultrasound Darryn Kennedy, BROWNELL OPERATOR [address] [address] Department of Radiology Start: 03-18-2018 End: 03-18-2019 US scan of neck US NECK SOFT TISSUE Routine Other fatigue Lymphadenopathy of head and neck Expected: 03/18/2018, Expires: 03/18/2019 [facility] Work Phone: Comment on above: Expected: 03/18/2018 , Expires: 03/18/2019 Start: 11-08-2017 Influenza vaccination INFLUENZA VACC INE (#1) [facility] Work Phone: Start: 2015 Screening for malign ant neoplasm of cervix [facility] Start: 2013 Hepatitis B vaccination HEP B VACCINE (1 of 3 - 19+ 3-dose series) [facility] Start: 2013 Third diphtheria, tetanus and acellular pertussis (DTaP) vaccination TDAP (ADULT) [facility] Start: 02-04-2012 GONORRHEA SCREEN GONORRHEA SCREEN [facility] Work Phone: Start: 02-04-2012 Tetanus vaccination TETANUS [facility] Start: 2010 Screening for Chlamy kyle trachomatis CHLAMYDIA SCREEN [facility] Work Phone: Start: 2009 HIV screening HIV SCREENING DISCUSSI ON [facility] Start: 2007 HIV screening HIV SCREENING DISCUSSI ON [facility] Work Phone: Start: 03-13-2005 Tetanus vaccination TETANUS [facility] Start: 2005 Vaccination for jelly n papillomavirus HPV VACCINE ADOL (1 - Female 3-dose series) [facility] Work Phone: Start: 02-04-2000 PNEUMOCOCCAL VACCINE SERIES (1 of 2 - PCV) PNEUMOCOCCAL VACCINE SERIES (1 of 2 - PCV) [facility] Start: 1999 COVID-19 VACCINE (1) COVID-19 VACCIN E (1) [facility] Start: 1994 COVID-19 VACCINE (#1) COVID-19 VACCI NE (#1) [facility] Start: 1994 Hepatitis C antibody , confirmatory test HEPATITIS C VIRUS SCREENING [facility] Start: 1994 Hepatitis C screening HEPATITI S C VIRUS SCREENING [facility] Laryngoscopy flexibl e diagnostic [place] LARYNGOSCOPY FLEXIBLE DIAGNOSTIC [place] Charge Routine Lymphadenopathy Ordered: 12/24/2022 [facility] Comment on above: Ordered: 12/24/2022 End: 06-02-2023 US Thyroid gland [facility] Work Phone: Comment on above: 1 Occurrences starti ng 06/02/2023 until 06/02/2023 Immunizations Immunization Date Immunization Notes Care Provider [facility] 12-25-2022 influenza virus vaccine, unspecified formulation Latrice Hall MD Work Phone: [facility] 01-08-2016 influenza virus vaccine, unspecified formulation Charlotte Cárdenas MD Work Phone: [facility] Payers Date Payer Category Payer Unknown [id number] 2023 Managed Care HMO (unspecified) [id number] 2023 Private Health Insurance [employer] [id number] 2023-Present [address] [place] [address] [id number] 2023 Private Health Insurance [id number] 2021 Unknown [id number] 2020 Unknown [id number] .[id number] 2020 Unknown [id number] 1994 Unknown [id number] 2.16.840.1.409737.3.579.2 .196 1994 Unknown [id number] 2.16.840.1.339778.3.579.2 .196 1994 Unknown [id number] 2.16.840.1.329915.3.579.2 .196 1994 Unknown [id number] 2.16.840.1.333182.3.579.2 .1260 1994 Unknown [id number] 2.16.840.1.315028.3.579.2 .594 1994 Unknown [id number] 2.16.840.1.356830.3.579.2 .594 1994 Unknown [id number] 2.16.840.1.099147.3.579.2 .594 1994 Unknown [id number] 2.16.840.1.415534.3.579.2 .594 1994 Unknown [id number] 2.16.840.1.467391.3.579.2 .594 1994 Unknown [id number] 2.16.840.1.154120.3.579.2 .594 1994 Unknown [id number] 2.16.840.1.584732.3.579.2 .594 1994 Unknown [id number] 2.16.840.1.165139.3.579.2 .594 1994 Unknown [id number] 2.16.840.1.740418.3.579.2 .1286 1994 Unknown [id number] 2.16.840.1.755942.3.579.2 .1286 1994 Unknown [id number] 2.16.840.1.638295.3.579.2 .1286 1994 Unknown [id number] 2.16.840.1.791050.3.579.2 .1286 1994 Unknown [id number] 2.16.840.1.299522.3.579.2 .1286 1994 Unknown [id number] 2.16.840.1.128709.3.579.2 .173 1994 Unknown [id number] 2.16.840.1.087653.3.579.2 .173 1994 Unknown [id number] 2.16.840.1.243230.3.579.2 .1259 1994 Unknown [id number] 2.16.840.1.299838.3.579.2 .1259 1994 Unknown [id number] 2.16.840.1.809570.3.579.2 .1259 1994 Unknown [id number] 2.16.840.1.847212.3.579.2 .1259 1994 Unknown [id number] 2.16.840.1.761569.3.579.2 .9 1994 Unknown [id number] 2.16.840.1.159066.3.579.2 .1259 1994 Unknown [id number] 2.16.840.1.316775.3.579.2 .1259 Social History Date Type Detail Facility Tobacco smoking stat us RIIS Unknown if ever smoked [facility] Work Phone: Start: 1995 Sex Assigned At Not on file [facility] Work Phone: Start: 04-21-2018 End: 05-27-2023 Tobacco smoking status NHIS Never smoked tobacco [facility] Start: 04-21-2018 End: 05-27-2023 Tobacco use and exposure Smokeless tobacco non-user [facility] Start: 06-05-2021 End: 09-22-2023 Alcohol intake Current drinker of alcohol (finding) [facility] Start: 04-15-2020 History SDOH Alcohol Frequency 2 [facility] Start: 04-15-2020 History SDOH Alcohol Std Drinks 1 [facility] Start: 05-10-2021 History SDOH Alcohol Comment 1-2 drinks per month [facility] Start: 05-26-2021 End: 06-05-2021 Exposure to SARS-CoV-2 (event) Not sure [facility] Start: 04-15-2020 End: 05-27-2023 History of Social function [facility] Start: 04-15-2020 End: 05-27-2023 Alcohol Use Disorder Identification Test - Consumption [AUDIT-C] [facility] How often to you hav e a drink containing alcohol? Monthly or less [facility] How many standard dr inks containing alcohol do you have on a typical day? 1 or 2 [facility] How often do you hav e 6 or more drinks on 1 occasion? Never [facility] Start: 03-16-2017 Gender identity Identifies as female gender (finding) [facility] Adolescent depressio n screening assessment 0 [facility] Start: 1995 Sex assigned at Female [facility] Start: 11-26-2023 End: 12-17-2023 Alcoholic beverage intake Ex-drinker (finding) [facility] Start: 06-16-2023 [facility] Clinical Notes 06-05-2021 to 12-17-2023 TAVIA Parsons - 12/17/2023 10:20 AM Taylor Hall MD - 09/22/2023 1:30 PM EDTCdanni Galdamez - 09/22/2023 1:30 PM Magui Torres MD - 09/22/2023 1:30 PM EDTPatient Instructions Note Date & Type Note Facility 12-17-2023 History of Present illness Narrative Reason for Appointment: Patient ID: Norma Cardenas is a 28 y.o. female who presents for Routine Visit Patient presents today for Return OB appointment. MEDICATIONS Current Outpatient Medications Medication Instructions [place]-3 Fatty Acids (OMEGA 3 PO) Oral Vit-DSS-Fe [...] Sister Diana Hanks Hypertension Father's Sister Lakisha O Jhonny Hypertension Father's Brother Tucker Peña Seizures Brother [...] nursing note reviewed. Exam conducted with a building maintenance engineer present. Vitals: Estimated body mass index is [...] of: TAVIA Parsons documented in this encounter [facility] 10-07-2023 Note Lonnie Peres [address] [facility] [address] October 07, 2023 Patient: Norma Cardenas Date of : 1995 Date of Visit: 10/07/2023 Dear Herve Jimenez MD: I had the pleasure of seeing Norma Cardenas, at our pediatric cardiology clinic on 10/07/2023 for Cardiac follow-up. Norma is a [age] y.o. female With a [...] use. She is scheduled to fly to [place] to see her in the near future [...] Normal biventricular systoli (more content not included)... [facility] 10-07-2023 Note Outpatient echo Must use antibiotic for dental procedures May fly Passive second stage deliver in [facility] 09-22-2023 History of Present illness Narrative RFC: Patient with thyroid nodule. Most recent US showing nodule TI-RADS 3 Regan Neves, MARINA SALES AND SERVICE SUPERVISOR-* HPI: Ms. Cardenas is a 28 y.o. [...] her mother. Her mother states that when Norma was young she was told that she had hypothyroidism, however no medication was prescribed and this was never followed up on. Norma is currently 16 weeks . Her last [...] hours as needed. lidocaine viscous-Alum & Mag Lznefpcku-Syshod-rxcjuzgujpVYTUO oral mouthwash Swish and swallow 15mL by mouth every 6 hours as needed. norgestimate-ethinyl estradiol (Sprintec 28) 0.25-35 MG-MCG tablet Take 1 tablet by mouth at bedtime. nystatin [id number] UNIT/ML oral suspension Swish and swallow 10 [...] Echogenicity: Hyperechoic or isoechoic (1 point) Shape: Smliv-fjxj-rlzd (0 points) Margin: Smooth (0 points) Echogenic [...] plan discussed with Dr. Torres Sincerely, Latrice Hall MD Fellow, Division of Endocrinology, Diabetes, and Metabolism [facility] [place] [address] No follow-ups on file. Patient has verified full name and . Attending Note: Patient seen, examined, and discussed in clinic with Dr. Hall; I have reviewed her documentation and agree [...] all parts of the procedure. Sincerely, Latrice Hall MD Fellow, Division of Endocrinology, Diabetes, and Metabolism [facility] [place] [address] documented in this encounter [facility] 09-22-2023 Instructions Latrice Hall MD - 09/22/2023 1:30 PM EDT It was great seeing you today! Division of Endocrinology Outpatient Care [facility] Follow-up appointments: Please arrive at [...] Any non-urgent results will be relayed via Ekin[employer]st if you have signed up for this [...] help perpare you for your future visits: [email or web address] --> Patient Care section. Sincerely, Latrice Hall MD Fellow, Division of Endocrinology, Diabetes, and Metabolism [facility] [place] [address] documented in this encounter [facility] 09-22-2023 Procedure note Associated Ord er(s): CHG US SOFT TISSUE HEAD & NECK REAL TIME IMGE DOCM Ms. Cardenas was seen and examined with Dr. Hall, I independently verified the findings on US and agree with the documented report - thyroid ultrasound report appears in the notes tab. [facility] 09-22-2023 Procedure note Associated Ord er(s): CHG US SOFT TISSUE HEAD & NECK REAL TIME IMGE DOCM Ms. Cardenas was seen and examined with Dr. Hall, I independently verified the findings on US and agree with the documented report - thyroid ultrasound report appears in the notes tab. documented in this encounter [facility] 12-24-2022 History of Present illness Narrative Chief Complaint: Chief Complaint Patient presents with New Patient Reports right side of neck with questionable swelling, continues to have problems with food getting stuck. Has to wash down food with liquids. HPI: Norma Cardenas is a 27 y.o. female smoker / non-smoker who presents 12/24/22 to the [facility] for [...] Laterality: N/A; Surgeon: Ramin Denney MD; Location: [facility] MAIN OR WISDOM TEETH EXTRACTION Social History [...] 1 Bottle 0 lidocaine viscous-Alum & Mag Ykdjnwubl-Odrsci-huhqhcggipYQEMI oral mouthwash Swish and swallow 15mL by mouth every 6 hours as needed. 240 mL 0 norgestimate-ethinyl estradiol (Sprintec 28) 0.25-35 MG-MCG tablet Take 1 tablet by mouth at bedtime. nystatin 773006 UNIT/ML oral suspension Swish and swallow 10 [...] to wash down food with liquids. HPI: Norma Cardenas is a 27 y.o. female smoker / non-smoker who presents 12/24/22 to the [facility] for [...] N/A; Surgeon: Ramin Denney MD; Location: [facility]T MAIN OR WISDOM TEETH EXTRACTION Social History [...] 1 Bottle 0 lidocaine viscous-Alum & Mag Ixuvevtgi-Dqjmru-slotmbkexwUBTLS oral mouthwash Swish and swallow 15mL by mouth every 6 hours as needed. 240 mL 0 norgestimate-ethinyl estradiol (Sprintec 28) 0.25-35 MG-MCG tablet Take 1 tablet by mouth at bedtime. nystatin [id number] UNIT/ML oral suspension Swish and swallow 10 [...] medical decision making for Ms. Cardenas with NOA Trivedi. Details of my interview, examination findings, and medical decision-making confirmed the findings above. I have personally amended the documentation where appropriate. Doing well based on my examination. Fu/ in PRN if above tests results are not concerning. documented in this encounter [facility] 11-20-2022 History of Present illness Narrative Maternal- Medicine (High Risk Obstetrics) Consultation Indication for consultation: Congenital Bicuspid aortic valve Referring Provider: Herve Jimenez MD History Norma Cardenas is a 27yo G0 LMP [id number] using nothing for contraception who presents for preconception consultation in the setting of hx congenital bicuspid aortic valve. Her history is also notable for a history of exercise induced asthma and thyroid nodule. She feels well today and has no complaints or concerns. She was recently seen by Dr. Peraza ([facility]) for preconception counseling on 05/21/2022 at [...] [facility]. 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 Ms. Norma Cardenas has the following problems that will [...] N/A; Surgeon: Ramin Denney MD; Location: [facility] MAIN OR WISDOM TEETH EXTRACTION - No [...] 1 Bottle 0 lidocaine viscous-Alum & Mag Wyhrxkbnt-Jypsfd-tyoientmwsKOSSP oral mouthwash Swish and swallow 15mL by mouth every 6 hours as needed. 240 mL 0 norgestimate-ethinyl estradiol (Sprintec 28) 0.25-35 MG-MCG tablet Take 1 tablet by mouth at bedtime. nystatin [id number] UNIT/ML oral suspension Swish and swallow 10 [...] . --. SCAN INFO ======= GENERAL SCANNER CONSERVATION EDUCATOR: [employer] MODEL: MAGNETOM Latosha PULSE SEQUENCES: SSFP cine, HASTE morphology, 3D [...] is no pericardial effusion. Assessment & Plan Norma Cardenas is a 27 y.o. No obstetric [...] aortic valve and has been followed by [facility]. The patient is currently asymptomatic [...] as Marfan syndrome. The patient qualifies for [facility] risk classification II-III which confers an intermediate increase in risk of maternal mortality, moderate to severe increase in morbidity, and a 11-19% risk of maternal cardiac event for which recommend consultation with heart team for baseline echocardiogram, clinical assessments every trimester, and delivery at a level II or higher maternal care center. Summary of Recommendations: Ms. Norma Cardenas has a condition that would make a higher risk for maternal and complications. If, with an understanding of the risks (detailed above), she decides to pursue , the following are recommendations to decrease the chances and severity of complications: Recommendations during - MOTIVATIONAL SPEAKER referral for multi-disciplinary care coordination - Baseline [...] would be appropriate for co-managed care with [facility] for ultrasounds and visits every trimester and that she should contact and establish care obstetrical care with [facility] general floor sanding machine operator practice once has a positive [...] and Gynecology Division of Maternal Medicine [facility] documented in this encounter [facility] 06-05-2021 Instructions Charlotte Cárdenas MD - 06/05/2021 11:42 AM EDT ASSESSMENT/PLAN: Status post tonsillectomy Healing well Pathology benign Followup as needed documented in this encounter [facility] 06-05-2021 History of Present illness Narrative [...] Followup as needed documented in this encounter [facility] Evaluation note Diagnosis Postop check- Primary Follow-up examination, following unspecified surgery [facility] Encounter for preconception consultation- Primary Bicuspid aortic valve Congenital insufficiency of aortic valve [facility] Diagnosis Lymphadenopathy- Primary Enlargement of lymph nodes [facility] Lymphadenopathy Enlargement of lymph nodes [facility] Lymphaden[facility]largement of [facility] Thyroid nodule Nontoxic uninodular goiter [facility] Diagnosis Thyroid nodule- Primary Nontoxic uninodular goiter [facility] Diagnosis 28 weeks gestation of Third trimester state, incidental [facility] Attachments The following attachments cannot be sent through Care Everywhere. * [facility] C[facility] Reason for Referral Status Reason Specialty Diagnoses / Procedures Referred By Contact Referred To Contact New Request Diagnoses Other fatigue Lymphadenopathy of head and neck Procedures US NECK SOFT TISSUE Darryn Kennedy, BROWNELL OPERATOR [address] [id number] Specialty Diagnoses / Procedures Referred By Contac t Referred To Contact Diagnoses Lymphadenopathy Procedures XR FLUORO MODIFIED BARIUM SWALLOW-ENT ONLY CHG RADIOLOGIC EXAM ESOPHAGUS SINGLE CONTRAST STUDY Regan Neves APRN-BROWNELL OPERATOR [address] [place] [address] Referral ID Status Reason Start Date Expiration Date V isits Requested Visits Authorized [id number] Auth Not Needed 12/24/2022 01/18/2024 1 1 Specialty Diagnoses / Procedures Referred By Contac t Referred To Contact Diagnoses Lymphadenopathy Regan Neves APRN-BROWNELL OPERATOR [address] [place] [address] Referral ID Status Reason Start Date Expiration Date V isits Requested Visits Authorized [id number] Pending Review 12/24/2022 01/18/2024 1 1 Specialty Diagnoses / Procedures Referred By Contac t Referred To Contact Diagnoses Lymphadenopathy Procedures CT NECK WITH CONTRAST WA CT NECK TISSUE CONTRAST Regan Neves APRN-BROWNELL OPERATOR [address] [place] [address] Referral ID Status Reason Start Date Expiration Date Visits Re quested Visits Authorized [id number] Closed 12/24/2022 01/18/2024 1 1 Referral ID Status Reason Start Date Expiration Date Visits Re quested Visits Authorized [id number] Closed 12/24/2022 01/18/2024 1 1 Specialty Diagnoses / Procedures Referred By Emanuel rodriguez Referred To Contact Diagnoses Thyroid nodule Procedures US THYROID WA US,HEAD/NECK TISSUES,REAL TIME Herve Jimenez MD [address] [place] [address] [facility] [address] [place] [address] Referral ID Status Reason Start Date Expiration Date V isits Requested Visits Authorized [id number] New Request 05/27/2023 06/20/2024 1 1 Specialty Diagnoses / Procedures Referred By Emanuel rodriguez Referred To Contact Diagnoses Thyroid nodule Procedures US [facility] Andres Torres MD [address] [facility] [address] [place] [address] Referral ID Status Reason Start Date Expiration Date V isits Requested Visits Authorized [id number] New Request 09/22/2023 10/16/2024 1 1 Assessments [...] section and content) DATE CREATED AUTHOR [facility]/07/2020 [facility] DATE CREATED AUTHOR AUTHOR'S ORGANIZ ATION 05/28/2022 [facility] DATE CREATED AUTHOR AUTHOR'S ORGANIZ ATION 05/24/2023 [facility] DATE CREATED AUTHOR AUTHOR'S ORGANIZ ATION 09/26/2023 [facility] DATE CREATED AUTHOR AUTHOR'S ORGANIZ ATION 11/19/2023 [facility] DATE CREATED AUTHOR AUTHOR'S ORGANIZ ATION 12/04/2023 [facility] DATE CREATED AUTHOR AUTHOR'S ORGANIZ ATION 12/17/2023 [facility] DATE CREATED AUTHOR AUTHOR'S ORGANIZ ATION 12/19/2023 [facility] EPIC Reason for Visit (unrecogniz [...] FOL W/CONT, CHEST Chepe Peraza MD [address] [place] [address] [facility] [address] [place] [address] Referral ID Status Reason Start Date Expiration Date V isits Requested Visits Authorized [id number] Auth Not Needed 05/29/2022 06/23/2023 1 1 [...] MD [address] [place] [address] Referral ID Status Reason Start Date Expiration Date Visits Re quested Visits Authorized [id number] Closed 12/24/2022 01/18/2024 1 1 Specialty Diagnoses / Procedures Referred By Emanuel rodriguez Referred To Contact Diagnoses Lymphadenopathy Procedures CT NECK WITH CONTRAST WA CT NECK TISSUE CONTRAST EdinsonRegan Lonnie, MARINA SALES AND SERVICE SUPERVISOR-BROWNELL OPERATOR [address] [place] [address] Referral ID Status Reason Start Date Expiration Date Visits Re quested Visits Authorized [id number] Closed 12/24/2022 01/18/2024 1 1 Specialty Diagnoses / Procedures Referred By Contac t Referred To Contact Diagnoses Lymphadenopathy Procedures XR FLUORO MODIFIED BARIUM SWALLOW-ENT ONLY CHG RADIOLOGIC EXAM ESOPHAGUS SINGLE CONTRAST STUDY EdinsonRegan Lonnie, MARINA SALES AND SERVICE SUPERVISOR-BROWNELL OPERATOR [address] [place] [address] Referral ID Status Reason Start Date Expiration Date Visits Re quested Visits Authorized [id number] Closed 12/24/2022 01/18/2024 1 1 Specialty Diagnoses / Procedures Referred By Contac t Referred To Contact Diagnoses Thyroid nodule Procedures US THYROID WA US,HEAD/NECK TISSUES,REAL TIME Herve Jimenez MD [address] [address] [facility] [address] [place] [address] Referral ID Status Reason Start Date Expiration Date V isits Requested Visits Authorized [id number] New Request 05/27/2023 06/20/2024 1 1 Reason Comments Thyroid Nodule Specialty Diagnoses / Procedures Referred By Contac t Referred To Contact Endocrinology, Diabetes & Metabolism Diagnoses Thyroid nodule EdinsonRegan veronica, MARINA SALES AND SERVICE SUPERVISOR-BROWNELL OPERATOR [address] [place] [address] Referral ID Status Reason Start Date Expiration Date V isits Requested Visits Authorized [id number] Pending Review 06/04/2023 06/28/2024 1 1 Reason Comments Routine Visit Care Teams (unrecognized sec tion and content) Carpenter Prototype Relationship Specialty Start Date End Date Herve Jimenez MD [address] [place] [phone] PCP - General Family Medicine 09/23/19 Chepe Peraza MD [address] [place] [address] Cinder Pit Crane Operator Pediatrics 04/30/21 Carpenter Prototype Relationship Specialty Start Date End Date Herve Jimenez MD [address] [place] [address] PCP - General Family Medicine 09/23/19 Chepe Peraza MD [address] [place] [address] Cinder Pit Crane Operator Pediatrics 04/30/21 Carpenter Prototype Relationship Specialty Start Date End Date Herve Jimenez MD [address] [place] [address] PCP - General Family Medicine 09/23/19 Chepe Peraza MD [address] [place] [address] Cinder Pit Crane Operator Pediatrics 04/30/21 Carpenter Prototype Relationship Specialty Start Date End Date Herve Jimenez MD [address] [address] PCP - General Family Medicine 09/23/19 Chepe Peraza MD [address] [place] [address] Cinder Pit Crane Operator Pediatrics 04/30/21 Carpenter Prototype Relationship Specialty Start Date End Date Herve Jimenez MD [address] [address] PCP - General Family Medicine 09/23/19 Chepe Peraza MD [address] [place] [address] Cinder Pit Crane Operator Pediatrics 04/30/21 Carpenter Prototype Relationship Specialty Start Date End Date Herve Jimenez MD [address] [place] [address] PCP - General Family Medicine 09/23/19 Chepe Peraza MD [address] [place] [address] Cinder Pit Crane Operator Pediatrics 04/30/21 Carpenter Prototype Relationship Specialty Start Date End Date Herve Jimenez MD [address] [place] [address] PCP - General Family Medicine 09/23/19 Chepe Peraza MD [address] [place] [address] Cinder Pit Crane Operator Pediatrics 04/30/21 Carpenter Prototype Relationship Specialty Start Date End Date Herve Jimenez MD [address] [place] [address] PCP - General Family Medicine 09/23/19 Chepe Peraza MD [address] [place] [address] Cinder Pit Crane Operator Pediatrics 04/30/21 FOR RECORDS PERTAINING TO [...] BE BASED ON THE PRIMARY CLINICAL RECORDS. [facility]. provides no warranty or guarantee of the accuracy or completeness of information in this document.
== END 2023-12-30 11:52 | disposition home or self-care (01) ==
LOC: NOMS 11:52
PROVIDERS: Visit Provider Obstetrics & Gynecology
DX: O26.892 Other specified pregnancy related conditions, second trimester (principal); Z36.86 Encounter for antenatal screening for cervical length; N89.8 Other specified noninflammatory disorders of vagina; Z3A.30 30 weeks gestation of pregnancy
CPT/HCPCS: 76815; 76817

== ENCOUNTER 2024-01-12 08:44 | Outpatient (OUT) | payer OTHER, SELFPAY ==
--- OUTSIDE RECORDS SUMMARY | 2024-01-11 23:47 | XMS_ITS | CCD ---
Author Organization [facility] Care Team Providers Care Manufacturing Business Analyst Name Role Phone Unavailable Unavailable Unavailable Herve Jimenez MD Primary Care Provider Chepe Peraza MD Unavailable Herve Jimenez MD Primary Care Unavail able Cristian DORADO, Jake Og Attending UnavailHerve Chiang MD Primary Care Unavail able Cristian DORADO, Jake Og Attending Unavailfred Foster MD, Jake Og Attending UnavailHerve Chiang MD Primary Care Unavail able Herve Jimenez MD Primary Care Provider Chepe Peraza MD Unavailable Herve Jimenez MD Primary Care Provider HERVE JIMENEZ Attending Unavailable Chepe Peraza MD Unavailable [phone] LATRICE HALL Attending Unavailable BARBARA HERVE J [...] M Referring Unavailable OZER, ENVER Attending Unavailable SHOEMAKER, HERVE J Primary Care Unavailable SHOEMAMANDI, HERVE J Attending Unavailable SHOLAN, HERVE J Referring Unavailable BARBARA, HERVE J Primary Care Unavailable CHEPE PERAZA Attending Unavailable REANNADARRYN Primary Care Unavailable DU PHILIP Referring Unavailable FRUREANNA, DARRYN Primary Care Unavailable MONICA SOFIA Attending Unavailable Unavailable Primary Care Provider Unavailabl e SAMMY PERAZA R Referring Unavailable SHOEMAKER, HERVE KENYA Primary Care Unavailabl e DUARTE BERNARD Attending Unavailable THERESE GLEASON Referring Unavailable SHOEMAKER, HERVE KENYA Primary Care Unavailabl e CHEPE PERAZA A Referring Unavailable SHOEMAKER, HREVE KENYA Primary Care Unavailabl e STU, SAMMY R Referring Unavailable SHOEMAKER, HERVE KENYA Primary Care Unavailabl e SANTI JERONIMO Attending Unavailable IWONA JOSEPH Referring Unavailabl e SHOEMAKER, HERVE KENYA Primary Care Unavailabl e TEA, CHEPE A Referring Unavailable SHOLADANKER, HERVE KENYA Primary Care UnavailDI Esquivel Attending Unavailable STU, SAMMY Attending Unavailable BONNIE, ELLA Attending Unavailable STU, SAMMY Attending Unavailable BONNIE, ELLA Attending Unavailable BONNIE, ELLA Attending Unavailable SAMMY PERAZA Attending Unavailable Allergies Allergy Classification Reported Allergen(s) Allergy Type Date of Onset Reaction(s) Facility (20 sources) Amoxicillin; Translations: [amoxicillin] Drug Allergy 04-14-19 13 Rash, Unknown [facility] Work Phone: (8 sources) Clarithromycin; Translations: [clarithromycin] Drug Allergy 10-07-19 16 [facility] Work Phone: (13 sources) Clindamycin; Translations: [clindamycin] Drug Allergy 03-16-19 18 [facility] Work Phone: (20 sources) Doxycycline; Translations: [doxycycline] Drug Allergy 04-14-19 13 Unknown [facility] Work Phone: (13 sources) Clarithromycin Propensity to adverse reactions to drug 10-07-19 16 Rash, Unknown [facility] Work Phone: (9 sources) Erythromycin; Translations: [ERYTHROMYCIN] Drug Allergy 04-14-19 13 [facility] Repository (1 source) Lincomycin; Translations: [LINCOMYCIN] Drug Allergy 07-13-19 15 [facility] Repository (9 sources) Spironolactone; Translations: [SPIRONOLACTONE] Drug Allergy 05-27-19 24 Dizziness [facility] Repository (7 sources) Clindamycin/Lincom ycin Drug Intolerance 07-13-19 15 Unknown [facility] Medications Current Medications Medication [...] / zinc oxide 20 mg oral tablet (13 sources) Vitamin B12, Vitamin D, Vitamin C [...] 0 05/22/2021 Active lidocaine viscous-Alum & Mag Ildwssnyv-Lgqhid-ffikspyargMRTWH oral mouthwash (8 sources) Start: 05-22-2021 take 15 mL by mouth every six hours as needed lidocaine viscous-Alum & Mag Jltqwbfvq-Uxupcw-oqqzxqevljQEEWY oral mouthwash Swish and swallow 15mL by mouth every 6 hours as needed. 240 mL 05/22/2021 Active Start: 05-22-2021 take 15 mL by mouth every six hours as needed lidocaine viscous-Alum & Mag Yhndaglgn-Wzunlr-dvdnfoynviIIJWV oral mouthwash Swish and swallow 15mL by mouth every 6 hours as needed. 240 mL 0 05/22/2021 Active nystatin 437049 unt/ml oral suspension (8 sources) Polyene Antifungal Start: 05-16-2021 take 10 mL by mouth four times daily nystatin [id number] UNIT/ML oral suspension Swish and swallow 10 mL 4 times daily. 280 mL 05/16/2021 Active Folcroft-3 Fatty Acids (OMEGA 3 PO) (7 sources) Folcroft-3 Fatty Ac ids (OMEGA 3 PO) Take [...] peripheral; and visceral artery aneurysms (4 sources) Aortic ectasia, unspecified site; Translations: [Thoracic aortic ectasia] Onset: 05-21-2022 Chronic Asthma (6 sources) Asthma; Translations: [Unspecified asthma, uncomplicated] Onset: 11-20-2022 11-20-2022 Chronic Cardiac and circulatory congenital anomalies (9 sources) Bicuspid aortic valve; Translations: [Congenital insufficiency of aortic valve] Onset: 07-15-2017 11-20-2022 Chronic Contraceptive and procreative management (5 sources) Patient encounter status; Translations: [Encounter for other general counseling and advice on procreation] Onset: 11-20-2022 11-20-2022 Episodic Malaise and fatigue (1 source) Fatigue; Translations: [...] unspecified, unspecified trimester] Onset: 10-20-2023 Episodic Other complications of (2 sources) Cardiac disease in ; Translations: [Diseases of the circulatory system complicating , unspecified trimester] 12-30-2023 Episodic Other complications of (2 sources) Hypothyroidism in ; Translations: [Endocrine, nutritional and metabolic diseases complicating , unspecified trimester] 12-30-2023 Episodic Other complications of (2 sources) Vaginal discharge; Translations: [Other specified related conditions, second trimester] 12-30-2023 Episodic Other and delivery including normal (4 sources) Third trimester ; Translations: [Encounter for supervision of normal , unspecified, third trimester] 12-17-2023 Episodic Other screening for suspected conditions (not mental disorders or infectious disease) (3 sources) Encounter for other specified screening; Translations: [Encounter for screening for congenital cardiac abnormalities] Onset: 10-20-2023 Episodic Residual codes; unclassified (2 sources) Gestation period, 28 weeks; Translations: [28 weeks gestation of ] 12-17-2023 Episodic Residual codes; unclassified (1 source) 24 weeks gestation of ; Translations: [24 weeks gestation of ] Onset: 11-18-2023 Episodic Residual codes; unclassified (2 sources) Gestation period, 30 weeks; Translations: [30 weeks gestation of ] 12-30-2023 Episodic Thyroid disorders (13 sources) Thyroid nodule; [...] source) Palpitations; Translations: [Palpitations] Onset: 07-15-2017 Episodic Lymphadenitis (6 sources) Generalized enlarged lymph nodes; Translations: [Lymphadenopathy] Onset: 01-09-2023 12-24-2022 Episodic Mood disorders (5 sources) Mood disorders Onset: 12-24-2022 12-24-2022 Other gastrointestinal disorders (2 sources) Dysphagia, pharyngeal phase; Translations: [Dysphagia, pharyngeal phase] Onset: 01-09-2023 Episodic NEGATED: Highlighted row has been ruled out!Unclassified (7 sources) No known active problems 05-27-2023 Results Test Name Value Interpretation Reference Range Facility Urinalysis macro (dipstick) panel (U)on 12-30-2023 Bilirubin, UA Negative Negative - 4(70) +++ mg/dL [facility] Blood, UA Negative Negative - 50 Sina/mcL [facility] Clarity, UA Clear [facility] re Color, UA Yellow [facility] e Glucose, UA Negative Negative - 1999(110) ++++ mg/dL [facility] Interpretation and review of laboratory results Normal [facility] Ketones, UA Negative Negative - 160(16) ++++ mg/dL [facility] Leukocytes, UA Negative Negative - 500+++ Amos/mcL [facility] Nitrite, UA Negative Negative - Positive [facility] pH, UA 6.5 5 - 9 [facility] Protein, UA Negative Negative - 1999(20) ++++ mg/dL [facility] Spec Grav, UA 1.015 1 - 1.03 [facility] Urobilinogen, UA 0.2 0.2 - 12 mg/dL [facility] TBH UA (CLEAN/CATCH) GIS ANALYST/GIUSEPPE RO IF IND.on 12-27-2023 BILIRUBIN URINE Negative NEGATIVE [facility] BLOOD URINE Negative NEGATIVE [facility] Clarity (U) CLEAR CLEAR [facility] Color (U) LT. YELLOW YELLOW [facility] GLUCOSE URINE UA Negative NEGATIVE mg/dL [facility] Interpretation and review of laboratory results Abnormal [facility] Ketones Ql (U) TRACE Abnormal NEGATIVE mg/dL [facility] Leukocyte esterase Test strip Ql (U) Negative NEGATIVE [facility] NITRITE URINE Negative NEGATIVE [facility] Health care pH (U) 7.0 [pH] 5.0 - 9.0 [facility] PROTEIN URINE Negative NEG/TRACE mg/dL [facility] SPECIFIC GRAVITY URINE <=1.005 Abnormal 1.005 - 1.025 [facility] URINE MICROSCOPIC INDICATED NO [facility] UROBILINOGEN URINE 0.2 EU/dL 0.2 - 1.0 EU/dL [facility] e Urinalysis macro (dipstick) panel (U)on 12-17-2023 Bilirubin, UA Negative Negative - 4(70) +++ mg/dL [facility] Blood, UA Negative Negative - 50 Sina/mcL [facility] Clarity, UA Clear [facility] re Color, UA Yellow [facility] e Glucose, UA Negative Negative - 1999(110) ++++ mg/dL [facility] Interpretation and review of laboratory results Abnormal [facility] Ketones, UA Negative Negative - 160(16) ++++ mg/dL [facility] Leukocytes, UA Trace Negative - 500+++ Amos/mcL [facility] Nitrite, UA Negative Negative - Positive [facility] pH, UA 7.5 5 - 9 [facility] e Protein, UA Negative Negative - 1999(20) ++++ mg/dL [facility] Spec Grav, UA 1.020 1 - 1.03 [facility] Health care Urobilinogen, UA 0.2 0.2 - 12 mg/dL [facility] CBC with Diffon 12-09-2023 Abs. Basophil 0.09 k/uL Normal 0.00-0.20 [facility] Comment on above: Performed By: #### C P, CDP #### [facility] [address] [place] [address] Dolly Operator: Clark Mata MD Abs.Imm.Granulocyte 0.17 k/uL Normal 0.00-0.30 [facility] Comment on above: Performed By: #### C P, CDP #### [address] [place], [place] [address] Dolly Operator: Clark Mata MD Abs.Neutrophil (Seg) 5.63 k/uL Normal 1.50-8.10 [facility] Comment on above: Performed By: #### C P, CDP #### [address] [place] [address] Dolly Operator: Clark Mata MD Basophils/100 WBC (Bld) 1 % Normal 0-2 [facility] Comment on above: Performed By: #### C P, CDP #### [address] [place] [address] Dolly Operator: Clark Mata MD Eosinophils (Bld) [#/Vol] 0.13 10*3/uL Normal 0.00-0.44 [facility] Comment on above: Performed By: #### C P, CDP #### [address] [place] [address] Dolly Operator: Clark Mata MD Eosinophils/100 WBC (Bld) 2 % Normal 1-4 [facility] Comment on above: Performed By: #### C P, CDP #### [address] [place], [place] [address] Dolly Operator: Clark Mata MD Erythrocyte distribution width (RBC) [Ratio] 12.7 % Normal 11.8-14.4 [facility] Comment on above: Performed By: #### C P, CDP #### [address] [place] [id number] Dolly Operator: Clark Mata MD Hematocrit (Bld) [Volume fraction] 36.4 % Normal 36.3-47.1 [facility] Comment on above: Performed By: #### C P, CDP #### [facility] [address] [place], [place] [id number] Dolly Operator: Clark Mata MD Hemoglobin (Bld) [Mass/Vol] 12.6 g/dL Normal 11.9-15.1 [facility] Comment on above: Performed By: #### C P, CDP #### [facility] [address] [place], [place] [id number] Dolly Operator: Clark Mata MD Immature granulocytes/100 WBC (Bld) 2 % High 0 [facility] Comment on above: Performed By: #### C P, CDP #### [address] [place], [facility]83 Dolly Operator: Clark Mata MD Lymphocytes (Bld) [#/Vol] 1.80 10*3/uL Normal 1.10-3.70 [facility] Comment on above: Performed By: #### C P, CDP #### [address] [place], [facility] Dolly Operator: Clark Mata MD Lymphocytes/100 WBC (Bld) 21 % Low 24-43 [facility] Comment on above: Performed By: #### C P, CDP #### [address] [place], [facility] Dolly Operator: Clark Mata MD MCH (RBC) [Entitic mass] 30.4 pg Normal 25.2-33.5 [facility] Comment on above: Performed By: #### C P, CDP #### [address] [place], [place] [id number] Dolly Operator: Clark Mata MD MCHC (RBC) [Mass/Vol] 34.6 g/dL Normal 28.4-34.8 [facility] Comment on above: Performed By: #### C P, CDP #### [address] [place], [facility] Dolly Operator: Clark Mata MD MCV (RBC) [Entitic vol] 87.9 fL Normal 82.6-102.9 [facility] Comment on above: Performed By: #### C P, CDP #### [facility] [address] [place] [address] Dolly Operator: Clark Mata MD Monocytes (Bld) [#/Vol] 0.61 10*3/uL Normal 0.10-1.20 [facility] Comment on above: Performed By: #### C P, CDP #### [address] [place], [place] [id number] Dolly Operator: Clark Mata MD Monocytes/100 WBC (Bld) 7 % Normal 3-12 [facility] Comment on above: Performed By: #### C P, CDP #### [address] [place], [facility]83 Dolly Operator: Clark Mata MD Neutrophil (Seg) 67 % High 36-65 [facility] Comment on above: Performed By: #### C P, CDP #### [address] [place], [place] [address] Dolly Operator: Clark Mata MD NRBC Automated 0.0 per 100 WBC Normal 0.0 [facility] Comment on above: Performed By: #### C P, CDP #### [address] [place], [facility]83 Dolly Operator: Clark Mata MD Platelet mean volume (Bld) [Entitic vol] 10.7 fL Normal 8.1-13.5 [facility] Comment on above: Performed By: #### C P, CDP #### [address] [place] [address] Dolly Operator: Clark Mata MD Platelets (Bld) [#/Vol] 162 10*3/uL Normal 138-453 [facility] Comment on above: Performed By: #### C P, CDP #### [facility] [address] [place], [place] [id number] Dolly Operator: Clark Mata MD RBC (Bld) [#/Vol] 4.14 10*6/uL Normal 3.95-5.11 [facility] Comment on above: Performed By: #### C P, CDP #### [facility] [address] [place], [place] [address] Dolly Operator: Clark Mata MD WBC (Bld) [#/Vol] 8.4 10*3/uL Normal 3.5-11.3 [facility] Comment on above: Performed By: #### C P, CDP #### [facility] [address] [place], [place] [address] Dolly Operator: Clark Mata MD Comp Metabolic Profon 2023 Albumin [Mass/Vol] 3.7 g/dL Normal 3.5-5.2 [facility] Comment on above: Performed By: #### C P, CDP #### [facility] [address] [place] [address] Dolly Operator: Clark Mata MD Albumin/Glob Ratio 1.4 Normal 1.0-2.5 [facility] Comment on above: Performed By: #### C P, CDP #### [facility] [address] [place] [address] Dolly Operator: Clark Mata MD Alkaline Phos 47 U/L Normal 35-104 [facility] Comment on above: Performed By: #### C P, CDP #### [facility] [address] [place] [address] Dolly Operator: Clark Mata MD ALT [Catalytic activity/Vol] 13 U/L Normal 10-35 [facility] Comment on above: Performed By: #### C P, CDP #### [facility] [address] [place], [place] [address] Dolly Operator: Clark Mata MD Anion gap [Moles/Vol] 9 mmol/L Normal 9-16 [facility] Comment on above: Performed By: #### C P, CDP #### [facility] [address] [place], [place] [id number] Dolly Operator: Clark Mata MD AST [Catalytic activity/Vol] 16 U/L Normal 10-35 [facility] Comment on above: Performed By: #### C P, CDP #### [facility] [address] [place], [place] [address] Dolly Operator: Clark Mata MD Bilirubin [Mass/Vol] 0.3 mg/dL Normal 0.00-1.20 [facility] Comment on above: Performed By: #### C P, CDP #### [facility] [address] [place], [place] [id number] Dolly Operator: Clark Mata MD BUN/CRE Ratio 17 Normal 9-20 [facility] Comment on above: Performed By: #### C P, CDP #### [address] [place], [place] [address]83 Dolly Operator: Clark Mata MD Calcium [Mass/Vol] 8.7 mg/dL Normal 8.6-10.4 [facility] Comment on above: Performed By: #### C P, CDP #### [facility] [address] [place], [place] [address] Dolly Operator: Clark Mata MD Chloride [Moles/Vol] 104 mmol/L Normal 98-107 [facility] Comment on above: Performed By: #### C P, CDP #### [facility] [address] [place], [place] [address] Dolly Operator: Clark Mata MD CO2 [Moles/Vol] 21 mmol/L Normal 20-31 [facility] Comment on above: Performed By: #### C P, CDP #### [facility] [address] [place] [address] Dolly Operator: Clark Mata MD Creatinine [Mass/Vol] 0.6 mg/dL Normal 0.50-0.90 [facility] Comment on above: Performed By: #### C P, CDP #### [facility] [address] [place] [address] Dolly Operator: Clark Mata MD GFR/1.73 sq M.predicted among non-blacks MDRD (S/P/Bld) [Vol rate/Area] mL/min/{1.73_m2} Normal >60 [facility] Comment on above: Result Comment: These [...] #### [facility] [address] [place] [address] Dolly Operator: Clark Mata MD Glucose [Mass/Vol] 75 mg/dL Normal 74-99 [facility] Comment on above: Performed By: #### C P, CDP #### [facility] [address] [place] [address] Dolly Operator: Clark Mata MD Potassium [Moles/Vol] 4.0 mmol/L Normal 3.7-5.3 [facility] Comment on above: Performed By: #### C P, CDP #### [facility] [address] [place] [address] Dolly Operator: Clark Mata MD Protein [Mass/Vol] 6.2 g/dL Low 6.6-8.7 [facility] Comment on above: Performed By: #### C P, CDP #### [facility] [address] [place], [place] [address] Dolly Operator: Clark Mata MD Sodium [Moles/Vol] 134 mmol/L Low 136-145 [facility] Comment on above: Performed By: #### C P, CDP #### [facility] [address] [place], [place] [address] Dolly Operator: Clark Mata MD Urea nitrogen [Mass/Vol] 10 mg/dL Normal 6-20 [facility] Comment on above: Performed By: #### C P, CDP #### [facility] [address] [place], [place] [address] Dolly Operator: Clark Mata MD Lipaseon 12-09-2023 Lipase [Catalytic activity/Vol] 41 U/L Normal 13-60 [facility] Comment on above: Performed By: #### L IP #### [facility] [address] [place], [place] [address] Dolly Operator: Clark Mata MD UA w/Reflex Cultureon 2023 Bilirubin, SemiQt,Ur Negative Normal NEG [facility] Comment on above: Performed By: #### U AX, UMICAO #### [facility] [address] [place], [place] [address] Dolly Operator: Clark Mata MD Blood, Urine Negative Normal NEG [facility] Comment on above: Performed By: #### U AX, UMICAO #### [facility] [address] [place], [place] [address] Dolly Operator: Clark Mata MD Clarity (U) Clear Normal CLEAR [facility] Comment on above: Performed By: #### U AX, UMICAO #### [facility] [address] [place], [place] [address] Dolly Operator: Clark Mata MD Color (U) Yellow Normal YEL [facility] Comment on above: Performed By: #### U AX, UMICAO #### [facility] [address] [place], [place] [address]83 Dolly Operator: Clark Mata MD Glucose Ql (U) Negative Normal NEG [facility] Comment on above: Performed By: #### U AX, UMICAO #### [facility] [address] [place] [address] Dolly Operator: Clark Mata MD Ketones Ql (U) Negative Normal NEG [facility] Comment on above: Performed By: #### U AX, UMICAO #### [facility] [address] [place] [address] [place], [place] [address] Dolly Operator: Clark Mata MD Leukocyte esterase Test strip Ql (U) Negative Normal NEG [facility] Comment on above: Performed By: #### U AX, UMICAO #### [facility] [address] [place] [address] [place] [address] Dolly Operator: Clark Mata MD Nitrite,Ur Negative Normal [facility] Comment on above: Performed By: #### U AX, UMICAO #### [facility] [address] [place] [address] [place] [address] Dolly Operator: Clark Mata MD PH,Ur 7.0 Normal 5.0-9.0 [facility] Comment on above: Performed By: #### U AX, UMICAO #### [facility] [address] [place], [place] [address] Dolly Operator: Clark Mata MD Protein Ql (U) Negative Normal NEG [facility] Comment on above: Performed By: #### U AX, UMICAO #### [facility] [address] [place], [place] [address] Dolly Operator: Clark Mata MD Spec. [place],Ur 1.015 Normal 1.010-1.020 [facility] Comment on above: Performed By: #### ARNOLD MARTINO #### [facility] [address] [place] [address] Dolly Operator: Clark Mata MD Urobilinogen,Ur Normal Normal 0.0-1.0 [facility] Comment on above: Performed By: #### ARNOLD MARTINO #### [facility] [address] [place] [address] Dolly Operator: Clark Mata MD US GALLBLADDER RUQon [...] Sabi Leung MD 12/09/23 Final result Normal [facility] Urinalysis,Microon 4 Epithelial cells LM Ql (Urine sed) 0 TO 2 Normal 0-25 [facility] Comment on above: Performed By: #### ARNOLD MARTINO #### [facility] [address] [place] [address] Dolly Operator: Clark Mata MD Urine RBC's None Normal 0-2 [facility] Comment on above: Performed By: #### U ISIDORO, UMICAO #### [facility] [address] [place] [address] Dolly Operator: Clark Mata MD Urine WBC's 0 TO 2 Normal 0-5 [facility] Comment on above: Performed By: #### U AX, UMICAO #### [facility] [address] [place] [address] Dolly Operator: Clark Mata MD 36on 12-03-2023 36 Echo order faxed over [facility] 36on 12-02-2023 36 Called and left detailed message for patient [facility] 36 This will be fine Normal [facility] 3611-24-2023 36 Patient called stating that they [facility] does not have any appointment for an echo until 32 week. She wants to know if it is okay for her to get it at 32 weeks or what else do you suggest. Please advise [facility] 3611-23-2023 36 I called the Norma and I left a message on her voicemail that I would put an order in but she needs to call the [facility] scheduling line and get it scheduled in our office will fax the order to them. I asked her to schedule it for 30 weeks gestation. Please make sure that the order is faxed to [facility] scheduling. [facility] Orders Onlyon 11-23-2023 Orders Only [id number] Norma Cardenas 1995 F Date Provider Department Center 11/23/2023 CHEPE GOODSON No family history on file [facility] 3611-21-2023 36 Pt called in stating that her [...] next apt with Dr. Peraza on 01/12. [facility] Telephoneon 11-21-2023 Telephone [id number] Norma Cardenas 1995 F Date Provider Department Center 11/21/2023 CHEPE GOODSON No family history on file Reason for Visit and Comments: ECHO [Other] [facility] Office Visiton 10-07-2023 Follow-up visit [id number] Norma Cardenas 1995 F Date Provider Department Center 10/07/2023 CHEPE GOODSON No family history on file Level of Service:88883 [place] OFFICE/OUTPATIENT ESTABLISHED MOD MDM 30 MIN Reason for Visit and Comments: Heart Problem [54] - Transfer from [facility] - 18 wks [facility] CHG US SOFT TISSUE HEAD & NE CK REAL TIME IMGE [facility] 09-23-2023 Radiology Study observation (narrative) [facility] CHG US SOFT TISSUE HEAD & NE CK REAL TIME IMGE [facility] 09-22-2023 Andres Torres MD 09/23/2023 6:28 PM Ms. Cardenas was seen and examined with Dr. Hall, I independently verified the findings on US and agree with the documented report - thyroid ultrasound report appears in the notes tab. [facility] US Unspecified body regionOr dered By: Unassigned Pacs on 09-22-2023 [facility] Work Phone: US Unspecified body regionon 09-22-2023 Radiology Study observation (narrative) [facility] 36on 07-04-2023 36 Created in error [facility] 36 Scheduled an appointment October 06 at 8:30am. [facility] 36 If this patient schedules [...] her and left her message as well. [facility] 36on 07-03-2023 36 Patient is newly (4wks) and is currently scheduled in August for her yearly visit.. She is asking if she needs to reschedule to do the 20-24 wk gestational testing. PH: [phone] Normal [facility] Telephoneon 07-03-2023 Telephone [id number] Norma Peña 1995 F Date Provider Department Center 07/03/2023 [id number] HAGER RPW PED [employer] No family history on file [facility] VZ Immunityon 06-23-2023 VZ Immunity 3.84 Normal >1.09 [facility] Comment on above: Result Comment: Interpretation: IMMUNE Reference Range: <0.91 Not Immune 0.91-1.09 Equivocal >1.09 Immune Performed By: #### V ZI #### [facility] [employer] [address] [id number] Dolly Operator: Bear Mejias MD US THYROIDon 06-03-2023 [...] Echogenicity: Hyperechoic or isoechoic (1 point) Shape: Uegjk-mrvj-msos (0 points) Margin: Smooth (0 points) Echogenic [...] using ACR TI-RADS. (JACR July 2016) Normal [facility] FREE T4on 05-23-2023 Free T4 [Mass/Vol] 1.0 ng/dL Normal 0.9-1.8 [facility] Comment on above: Order Comment: Locat ion: Performed By: #### L [id number], [id number] #### ANIL PRESSLEY ([id number]) [facility] ([facility]) [address], [address] [place] [address] TSHon 05-23-2023 TSH 2.599 MIU/mL Normal 0.550-4.780 [facility] Comment on above: Order Comment: Locat ion: Performed By: #### L [id number], [id number] #### ANIL PRESSLEY ([id number]) [facility] ([facility]) [address], [address] [place] [address] RF videography Hypopharynx a nd Esophagus Views [...] report for further details and dietary recommendations. [facility] Radiology Study observation (narrative) [facility] RF videography Hypopharynx a nd Esophagus Views W liquid and paste contrast PO during swallowingOrdered By: Gisele Hardy on 01-09-2023 [facility] Work Phone: XR FLUORO MODIFIED BARIUM [...] for further details and dietary recommendations. Normal [facility] CT NECK WITH CONTRASTon 10-1 CT NECK [...] error, please notify the sender immediately at [phone] and permanently delete the original report and destroy any copies or printouts. 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 Patient reports some pain [...] and the last time she saw her supervisor rolling room thought there might have been some dilation [...] will send patient for preconceptual counseling with [facility] because of her cardiac abnormality Follow-up [...] intractable, w/o (more content not included)... Normal [facility] Culture, Urineon 08-04-2020 RPT Microbiology results Abnormal [facility] Comment on above: Order Comment: Items in this order include: Culture, Urine Testing Performed By: [facility] [address] [place] [address] Dr. Anil Pressley, Dolly Operator Result Comment: [place] Count: 10,000-25,000 CFU/ML Final Result: Escherichia [...] R Performed By: #### C 734 #### [facility] [address] [place] [address] Culture, Urineon 03-14-2020 RPT Microbiology results Abnormal [facility] Comment on above: Order Comment: Items in this order include: Culture, Urine Testing Performed By: [facility] [address] [place] [address] Dr. Shaunna Cummins, Dolly Operator Result Comment: [place] Count: >100,000 CFU/ML Final Result: Escherichia [...] R Performed By: #### C 734 #### [facility] [address] [place] [address] Culture, Urineon 12-14-2019 RPT Microbiology results Abnormal [facility] Comment on above: Order Comment: Items in this order include: Culture, Urine Testing Performed By: [facility] [address] [place] [address] Dr. Shaunna Cummins, Dolly Operator Result Comment: [place] Count: 50,000-75,000 CFU/ML Final Result: Escherichia [...] R Performed By: #### C 734 #### [facility] [address] [place] [address] Vital Signs Date Time Vital Sign Value Performing Clinician Facility 12-30-2023 10:58-0400 Body mass index (BMI) [Ratio] 28.12 kg/m2 Sammy Stu DO Work Phone: [facility] 12-30-2023 10:58-0400 Body weight 74.3 kg Sammy Stu DO Work Phone: [facility] 12-30-2023 10:58-0400 Diastolic blood pressure 64 mm[Hg] Sammy Stu DO Work Phone: [facility] 12-30-2023 10:58-0400 Systolic blood pressure 100 mm[Hg] Sammy Stu DO Work Phone: [facility] 12-17-2023 10:27-0400 Body mass index (BMI) [Ratio] 27.6 kg/m2 Ella Nicole PA Work Phone: [facility] 12-17-2023 10:27-0400 Body weight 72.94 kg Ella Nicole PA Work Phone: [facility] 12-17-2023 10:27-0400 Diastolic blood pressure 64 mm[Hg] Ella Bonnie PA Work Phone: [facility] 12-17-2023 10:27-0400 Systolic blood pressure 100 mm[Hg] Ella Nicole PA Work Phone: [facility] 09-22-2023 13:37-0400 Body height 162.6 cm Latrice Hall MD Work Phone: [facility] 09-22-2023 13:37-0400 Body mass index (BMI) [Ratio] 25.4 kg/m2 Latrice Hall MD Work Phone: [facility] 09-22-2023 13:37-0400 Body temperature 97.3 [degF] Latrice Hall MD Work Phone: [facility] 09-22-2023 13:37-0400 Body weight 67.13 kg Latrice Hall MD Work Phone: [facility] 09-22-2023 13:37-0400 Diastolic blood pressure 62 mm[Hg] Latrice Hall MD Work Phone: [facility] 09-22-2023 13:37-0400 Systolic blood pressure 114 mm[Hg] Latrice Hall MD Work Phone: [facility] 12-24-2022 16:30-0400 Body height 162.6 cm Regan Neevs [employer] Work Phone: [facility] 12-24-2022 16:30-0400 Body mass index (BMI) [Ratio] 23.17 kg/m2 Regan Edinson [employer] Work Phone: [facility] 12-24-2022 16:30-0400 Body weight 61.24 kg Reganemperatriz Ellisen [employer] Work Phone: [facility] 12-24-2022 16:30-0400 Diastolic blood pressure 68 mm[Hg] Regan Edinson [employer] Work Phone: [facility] 12-24-2022 16:30-0400 Heart rate 71 /min Regan Edinson [employer] Work Phone: [facility] 12-24-2022 16:30-0400 Systolic blood pressure 108 mm[Hg] Regan Edinson [employer] Work Phone: [facility] 12-24-2022 11:37-0400 Body mass index (BMI) [Ratio] 23.22 kg/m2 mEile Armas MD Work Phone: [facility] 12-24-2022 11:37-0400 Body temperature 98.2 [degF] Emile Armas MD Work Phone: [facility] 12-24-2022 11:37-0400 Body weight 61.37 kg Emile Armas MD Work Phone: [facility] 12-24-2022 11:37-0400 Diastolic blood pressure 78 mm[Hg] Emile Armas MD Work Phone: [facility] 12-24-2022 11:37-0400 Heart rate 73 /min Emile Armas MD Work Phone: [facility] 12-24-2022 11:37-0400 Respiratory rate 16 /min Emile Armas MD Work Phone: [facility] 12-24-2022 11:37-0400 SaO2% (BldA) [Mass fraction] 99 % Emile Armas MD Work Phone: [facility] 12-24-2022 11:37-0400 Systolic blood pressure 123 mm[Hg] Emile Armas MD Work Phone: [facility] Encounters Encounter Date Encounter Type Care Provider Facility Start: 12-30-2023 End: 12-30-2023 Bamboo flowsheet Sammy Stu DO Work Phone: [facility] Start: 12-30-2023 End: 12-30-2023 Bamboo flowsheet Sammy Stu DO Work Phone: [facility] Start: 12-30-2023 End: 12-30-2023 ambulatory SAMMY STU Not Available Start: 12-30-2023 End: 12-30-2023 flow sheet Sammy Stu DO Work Phone: [facility] Comment on above: 30 weeks gestation o f ; Third trimester ; Aortic stenosis of mother during ; Hypothyroid in , antepartum (CMS/HCC); Vaginal discharge during in second trimester; Encounter for screening for cervical length Start: 12-29-2023 End: 12-29-2023 ambulatory [facility] Start: 12-27-2023 End: 12-27-2023 Clinisync Result Encounter Sammy Stu DO Work Phone: [facility] Unsolicited Start: 12-27-2023 End: 12-27-2023 Clinisync Result Encounter Sammy Stu DO Work Phone: [facility] Unsolicited [...] 12-09-2023 End: 12-09-2023 Emergency department patient visit [facility] Start: 11-26-2023 End: 11-26-2023 ambulatory ELLA NICOLE Not Available Start: 11-18-2023 End: 11-18-2023 ambulatory SAMMY R [facility] Start: 10-31-2023 End: 10-31-2023 ambulatory [facility] Start: 10-30-2023 End: 10-30-2023 ambulatory SAMMY STU Not Available Start: 10-20-2023 End: 10-20-2023 ambulatory [facility] Start: 10-07-2023 End: 10-07-2023 ambulatory [facility] Start: 09-30-2023 End: 09-30-2023 ambulatory ELLA NICOLE Not Available Start: 09-22-2023 End: 09-22-2023 Office outpatient new 45 minutes Latrice Hall MD Work Phone: [facility] Comment on above: Thyroid nodule (Prim subhash Dx) Start: 09-22-2023 ambulatory LATRICE HALL Facilit y:[facility] Start: 09-01-2023 End: 09-01-2023 ambulatory SAMMY STU Not Available Start: 07-31-2023 End: 07-31-2023 ambulatory DI PANCHAL Not Available Start: 06-20-2023 End: 06-20-2023 ambulatory DARRYN [facility] Start: 06-02-2023 ambulatory HERVE Benavides ility:[facility] Start: 06-02-2023 End: 06-02-2023 Subsequent hospital visit by physician Herve Jimenez MD Work Phone: Department of Radiology Comment on above: Arrived Start: 05-27-2023 End: 05-27-2023 ambulatory DI PANCHAL Not Available Start: 05-23-2023 End: 05-23-2023 ambulatory HERVE JIMENEZ [facility] Start: 01-09-2023 End: 01-09-2023 Subsequent hospital visit by physician Emile Armas MD Work Phone: Department of Radiology Comment on above: Arrived Start: 01-09-2023 ambulatory HERVE Benavides ility:[facility] Start: 12-24-2022 End: 12-24-2022 Subsequent hospital visit by physician Regan Neves [employer] Work Phone: [facility] [place] Comment on above: Arrived Start: 12-24-2022 ambulatory REGAN NEVES Facilit y:[facility] Start: 12-24-2022 End: 12-24-2022 Office outpatient new 45 minutes Emile Armas MD Work Phone: Department of Otolaryngology Comment on above: Lymphadenopathy (Alicia ramin Dx) Start: 12-24-2022 ambulatory SELF SELF Facility:[facility] Start: 11-20-2022 End: 11-20-2022 Office consultation new/estab patient 60 min Belle Jose DO Work Phone: [facility] [place] Comment on above: Encounter for precon ception consultation (Primary Dx); Bicuspid aortic valve Start: 11-20-2022 ambulatory HERVE Benavides ility:[facility] Start: 08-15-2022 End: 08-15-2022 Subsequent hospital visit by physician Chepe Peraza MD Work Phone: Cardiovascular Imaging Lab [facility] Comment on above: Canceled (Cancel Ligia son Not Listed - Please provide detailed information) Start: 05-21-2022 End: 05-22-2022 ambulatory Jake Foster MD Facility:[facility] Start: 06-05-2021 End: 06-05-2021 Postop follow up visit related to original px Charlotte Cárdenas MD Work Phone: [facility] [place] Comment on above: Postop check (Primar y Dx) Start: 03-18-2018 End: 03-18-2018 Patient encounter procedure Darryn Kennedy Work Phone: [facility] Comment on above: Other fatigue; Lymph adenopathy of head and neck Procedures Date Procedure Procedure Detail Performing Clinician Start: 12-30-2023 Urnls dip stick/tabl et rgnt non-auto w/o micrscp Sammy Stu DO Work Phone: Start: 12-27-2023 [facility] UA (CLEAN/CATCH) GIS ANALYST/MICRO IF IND. Sammy Stu DO Work Phone: Start: 12-17-2023 Urnls dip stick/tabl et rgnt non-auto w/o micrscp Ella SQUIRES Work Phone: Start: 09-22-2023 US Unspecified body region Latrice Hall MD Work Phone: Start: 09-22-2023 Us soft tissue head & neck real time imge docm Latrice Hall MD Work Phone: Start: 01-09-2023 Radiologic exam esop hagus single contrast study Regan Neves [employer] Work Phone: Plan of Treatment Date Care Activity Detail Author Start: 05-28-2024 End: 05-28-2024 Patient encounter procedure 05/28/2024 10:40 AM EDT Office Visit [facility] [address] [place] [id number] [place], [place] [address] [place] [address] [facility] Start: 01-14-2024 End: 01-14-2024 Patient encounter procedure 01/14/2024 10:30 AM EST Routine [facility] [address] [place] [address] Ella Nicole PA [address] [place], [place] [id number] [facility] Start: 12-30-2023 End: 12-29-2024 US biophysical profile w non stress test US biophysical profile w non stress test Imaging Routine Aortic stenosis of mother during Hypothyroid in , antepartum (CMS/HCC) Expected: 12/30/2023 (Approximate), Expires: 12/29/2024 [facility] Work Phone: Comment on above: Expected: 12/30/2023 (Approximate), Expires: 12/29/2024 Start: 12-30-2023 End: 12-29-2024 US for US OB AMNIOTIC FLUID VOLUME Imaging Routine Vaginal discharge during in second trimester Expected: 12/30/2023 (Approximate), Expires: 12/29/2024 [facility] Comment on above: Expected: 12/30/2023 (Approximate), Expires: 12/29/2024 Start: 12-30-2023 End: 12-29-2024 US Pelvis transvaginal US OB transvaginal Imaging Routine Encounter for screening for cervical length Expected: 12/30/2023 (Approximate), Expires: 12/29/2024 [facility] Comment on above: Expected: 12/30/2023 (Approximate), Expires: 12/29/2024 Start: 12-30-2023 End: 12-30-2023 Patient encounter procedure 12/30/2023 10:30 AM EDT Routine [facility] [address] [place] [address] Sammy Peraza DO [address] [place] [address] [facility] Start: 12-17-2023 End: 12-17-2023 Patient encounter procedure 12/17/2023 10:20 AM EDT Routine [facility] [address] [place] [address] Ella Nicole PA [address] [place], [place] [id number] Arrived [facility] Comment on above: Arrived Start: 11-09-2023 Influenza vaccination INFLUENZA VACC INE (#1) [facility] Start: 06-03-2023 ambulatory Ambulatory Facility:[facility] Start: 01-09-2023 End: 01-09-2023 ambulatory 01/09/2023 8:30 AM EDT Rehab Services Visit [facility] [address] [place] [address] [facility] Start: 01-09-2023 End: 01-09-2023 Patient encounter procedure 01/09/2023 8:30 AM EDT Appointment Department of Radiology [address] [place] [address] Department of Radiology Start: 12-24-2022 End: 12-25-2023 CT Neck W contrast IV [facility] Comment on above: Expected: 12/24/2022 , Expires: 12/25/2023 1 Occurrences starti ng 12/24/2022 until 12/24/2022 Start: 12-24-2022 End: 12-25-2023 RF videography Hypopharynx and Esophagus Views W liquid and paste contrast PO during swallowing XR FLUORO MODIFIED BARIUM SWALLOW-ENT ONLY Imaging Routine Lymphadenopathy Expected: 12/24/2022, Expires: 12/25/2023 [facility] Comment on above: Expected: 12/24/2022 , Expires: 12/25/2023 Start: 11-08-2022 COVID-19 VACCINE (1 - 2023-24 season) COVID-19 VACCINE (2022- season) [facility] Start: 11-08-2022 Influenza vaccination O [facility] Start: 11-08-2020 Influenza vaccination INFLUENZA VACC INE (#1) [facility] Start: 03-27-2018 End: 03-27-2018 Ambulatory 03/27/2018 Appointment Ultrasound Darryn Kennedy, SALES [employer] [address] [place] [address] [phone] Department of Radiology Start: 03-18-2018 End: 03-18-2019 US scan of neck US NECK SOFT TISSUE Routine Other fatigue Lymphadenopathy of head and neck Expected: 03/18/2018, Expires: 03/18/2019 [facility] Work Phone: Comment on above: Expected: 03/18/2018 , Expires: 03/18/2019 Start: 11-08-2017 Influenza vaccination INFLUENZA VACC INE (#1) [facility] Work Phone: Start: 2015 Screening for malign ant neoplasm of cervix [facility] Start: 2013 Hepatitis B vaccination HEP B VACCINE (1 of 3 - 19+ 3-dose series) [facility] Start: 2013 Third diphtheria, tetanus and acellular pertussis (DTaP) vaccination TDAP (ADULT) [facility] Start: 02-04-2012 GONORRHEA SCREEN GONORRHEA SCREEN [facility] Work Phone: Start: 02-04-2012 Tetanus vaccination TETANUS [facility] Start: 2010 Screening for Chlamy kyle trachomatis CHLAMYDIA SCREEN [facility] Work Phone: Start: 2009 HIV screening HIV SCREENING DISCUSSI ON [facility] Start: 2007 HIV screening HIV SCREENING DISCUSSI ON [facility] Work Phone: Start: 03-13-2005 Tetanus vaccination TETANUS [facility] Start: 2005 Vaccination for jelly n papillomavirus HPV VACCINE ADOL (1 - Female 3-dose series) [facility] Work Phone: Start: 02-04-2000 PNEUMOCOCCAL VACCINE SERIES (1 of 2 - PCV) PNEUMOCOCCAL VACCINE SERIES (1 of 2 - PCV) [facility] Start: 1999 COVID-19 VACCINE (1) COVID-19 VACCIN E (1) [facility] Start: 1994 COVID-19 VACCINE (#1) COVID-19 VACCI NE (#1) [facility] Start: 1994 Hepatitis C antibody , confirmatory test HEPATITIS C VIRUS SCREENING [facility] Start: 1994 Hepatitis C screening HEPATITI S C VIRUS SCREENING [facility] CHLAMYDIA TRACHOMATI S (GENITO/STI) CHLAMYDIA TRACHOMATIS (GENITO/STI) Lab Routine Vaginal discharge during in second trimester Ordered: 12/30/2023 [facility] Comment on above: Ordered: 12/30/2023 Laryngoscopy flexibl e diagnostic [place] LARYNGOSCOPY FLEXIBLE DIAGNOSTIC [place] Charge Routine Lymphadenopathy Ordered: 12/24/2022 [facility] Comment on above: Ordered: 12/24/2022 Neisseria gonorrhoea e DNA [Presence] in Unspecified specimen by VANESSA with probe detection Neisseria gonorrhea DNA probe, direct Lab Routine Vaginal discharge during in second trimester Ordered: 12/30/2023 [facility] Comment on above: Ordered: 12/30/2023 SURESWAB(R) ADVANCED VAGINITIS PLUS, TMA SURESWAB(R) ADVANCED VAGINITIS PLUS, TMA Pathology and Cytology Routine Vaginal discharge during in second trimester Ordered: 12/30/2023 [facility] Comment on above: Ordered: 12/30/2023 End: 06-02-2023 US Thyroid gland [facility] Work Phone: Comment on above: 1 Occurrences starti ng 06/02/2023 until 06/02/2023 Immunizations Immunization Date Immunization Notes Care Provider Fa cility 12-25-2022 influenza virus vaccine, unspecified formulation Latrice Hall MD Work Phone: [facility] 01-08-2016 influenza virus vaccine, unspecified formulation Charlotte Cárdenas MD Work Phone: [facility] Payers Date Payer Category Payer Unknown [id number] 2023 Managed Care HMO (unspecified) [id number] 2023 Private Health Insurance [employer] [id number] 2023-Present [address] [place] [address] [id number] 2023 Private Health Insurance [id number] 2021 Unknown [id number] 2020 Unknown [id number] [id number] .[id number] 2020 Unknown [id number] 1994 Unknown [id number] 2.16.840.1.413066.3.579.2 .196 1994 Unknown [id number] 2.16.840.1.985138.3.579.2 .196 1994 Unknown [id number] 2.16.840.1.358035.3.579.2 .196 1994 Unknown [id number] 2.16.840.1.659602.3.579.2 .1260 1994 Unknown [id number] 2.16.840.1.678162.3.579.2 .594 1994 Unknown [id number] 2.16.840.1.779818.3.579.2 .594 1994 Unknown [id number] 2.16.840.1.542551.3.579.2 .594 1994 Unknown [id number] 2.16.840.1.260269.3.579.2 .594 1994 Unknown [id number] 2.16.840.1.318547.3.579.2 .594 1994 Unknown [id number] 2.16.840.1.418198.3.579.2 .594 1994 Unknown [id number] 2.16.840.1.966832.3.579.2 .594 1994 Unknown [id number] 2.16.840.1.902614.3.579.2 .594 1994 Unknown [id number] 2.16.840.1.811511.3.579.2 .173 1994 Unknown [id number] 2.16.840.1.532155.3.579.2 .173 1994 Unknown [id number] 2.16.840.1.430891.3.579.2 .1286 1994 Unknown [id number] 2.16.840.1.018956.3.579.2 .1286 1994 Unknown [id number] 2.16.840.1.929095.3.579.2 .1286 1994 Unknown [id number] 2.16.840.1.343575.3.579.2 .1286 1994 Unknown [id number] 2.16.840.1.078364.3.579.2 .1286 1994 Unknown [id number] 2.16.840.1.607425.3.579.2 .1286 1994 Unknown [id number] 2.16.840.1.044940.3.579.2 .1259 1994 Unknown [id number] 2.16.840.1.952294.3.579.2 .1259 1994 Unknown [id number] 2.16.840.1.953165.3.579.2 .1259 1994 Unknown [id number] 2.16.840.1.038686.3.579.2 .1259 1994 Unknown [id number] 2.16.840.1.750054.3.579.2 .1259 1994 Unknown [id number] 2.16.840.1.806316.3.579.2 .1259 1994 Unknown [id number] 2.16.840.1.187668.3.579.2 .1259 1994 Unknown [id number] 2.16.840.1.775062.3.579.2 .1259 Social History Date Type Detail Facility Tobacco smoking stat us NHIS Unknown if ever smoked [facility] Work Phone: Start: 1995 Sex Assigned At Not on file [facility] Work Phone: Start: 04-21-2018 End: 05-27-2023 Tobacco smoking status NHIS Never smoked tobacco [facility] Start: 04-21-2018 End: 05-27-2023 Tobacco use and exposure Smokeless tobacco non-user [facility] Start: 06-05-2021 End: 09-22-2023 Alcohol intake Current drinker of alcohol (finding) [facility] Start: 04-15-2020 History SDOH Alcohol Frequency 2 [facility] Start: 04-15-2020 History SDOH Alcohol Std Drinks 1 [facility] Start: 05-10-2021 History SDOH Alcohol Comment 1-2 drinks per month [facility] Start: 05-26-2021 End: 06-05-2021 Exposure to SARS-CoV-2 (event) Not sure [facility] Start: 04-15-2020 End: 05-27-2023 History of Social function [facility] Start: 04-15-2020 End: 05-27-2023 Alcohol Use Disorder Identification Test - Consumption [AUDIT-C] [facility] How often to you hav e a drink containing alcohol? Monthly or less [facility] How many standard dr inks containing alcohol do you have on a typical day? 1 or 2 [facility] How often do you hav e 6 or more drinks on 1 occasion? Never [facility] Start: 03-16-2017 Gender identity Identifies as female gender (finding) [facility] Adolescent depressio n screening assessment 0 [facility] Start: 1995 Sex assigned at Female [facility] Start: 11-26-2023 End: 12-30-2023 Alcoholic beverage intake Ex-drinker (finding) [facility] Start: 06-16-2023 [facility] Clinical Notes 06-05-2021 to 12-30-2023 Nataliya Srivastava LPN - 12/30/2023 10:30 AM TAVIA Phan - 12/17/2023 10:20 AM Taylor Hall MD - 09/22/2023 1:30 PM EDTClara Galdamez - 09/22/2023 1:30 PM EDTPatient Instructions Note Date & Type Note Facility 12-30-2023 History of Present illness Narrative Reason for Appointment: Patient ID: Norma Cardenas is a 28 y.o. female who presents for Routine Visit Patient presents today for Return OB appointment. MEDICATIONS Current Outpatient Medications Medication Instructions Folcroft-3 Fatty Acids (OMEGA 3 PO) Take by mouth Vit-DSS-Fe Fum-FA ( 19) tablet 1 tablet, Daily RT ALLERGIES Allergies Allergen Reactions Doxycycline [...] Grandfather Michael Holder Hypertension Paternal Grandmother Shagufta Lamffee Breast cancer Father's Sister Diana Hanks Hyperlipidemia [...] Constitutional: Appearance: Normal appearance. She is well-developed. Genitourinary: Vulva normal. Cardiovascular: Rate and Rhythm: Normal rate and [...] nursing note reviewed. Exam conducted with a plastic welder present. Vitals: Estimated body mass index is 28.12 kg/m as calculated from the following: Height as of 05/27/22: 5' 4 . Weight as of this encounter: 163 lb 12.8 oz. BP: 100/64 Patient's last menstrual period was 06/02/2023. ASSESSMENT & PLAN ICD-10-CM 1. 30 weeks gestation of Z3A.30 POCT urinalysis dipstick manually resulted 2. Third trimester Z34.93 POCT urinalysis dipstick manually resulted 3. Aortic stenosis of mother during O99.419 US biophysical profile w non stress test I35.0 4. Hypothyroid in , antepartum ([facility]) O99.280 US biophysical profile w non stress test E03.9 5. Vaginal discharge during in second trimester O26.892 US OB AMNIOTIC FLUID VOLUME N89.8 6. Encounter for screening for cervical length Z36.86 US OB transvaginal Return OB: Patient presents today for a routine obstetrics appointment. Patient is currently 30w1d . Patient states she is doing well but has complaints of being tired due to current . Patient has verbalizes frequent movement. labor precautions was discussed/given and patient was instructed to perform kick counts three times a day. Pt given NST/BPP to start at 32 weeks. Pt to have RYAN and cervical length today d/t increased vaginal discharge. Pt to come off work d/t having contractions. Will reassess in 2 weeks. Pt advised if contractions become more consistent to come into hospital. Orders Placed This Encounter Procedures US biophysical profile w non stress test US OB AMNIOTIC FLUID VOLUME US OB transvaginal POCT urinalysis dipstick manually resulted Follow Up: Patient is to return to office in 2 week for routine OB appointment. Documented by Nataliya Srivastava LPN on behalf of: Sammy Peraza DO documented in this encounter [facility] 12-17-2023 History of Present illness Narrative Reason for Appointment: Patient ID: Norma Cardenas is a 28 y.o. female who presents for Routine Visit Patient presents today for Return OB appointment. MEDICATIONS Current Outpatient Medications Medication Instructions Folcroft-3 Fatty Acids (OMEGA 3 PO) Oral Vit-DSS-Fe [...] Sister Diana Hanks Hypertension Father's Sister Lakisha Goss Jhonny Hypertension Father's Brother Tucker Peña Seizures [...] nursing note reviewed. Exam conducted with a plastic welder present. Vitals: Estimated body mass index is [...] of: TAVIA Parsons documented in this encounter [facility] 10-07-2023 Note Lonnie Peres [address] [facility] [phone] October 07, 2023 Patient: Norma Cardenas Date [...] Normal biventricular systoli (more content not included)... [facility] 10-07-2023 Note Outpatient echo Must use antibiotic for dental procedures May fly Passive second stage deliver in [facility] 09-22-2023 History of Present illness Narrative RFC: Patient with thyroid nodule. Most recent US showing nodule TI-RADS 3 Regan Neves, SHAREMILKER-* HPI: Ms. Cardenas is a 28 y.o. [...] Hyperlipidemia, Hyperthyroidism, Hypogonadism male, Hypothyroidism, Liver disease, NC (myocardial infarction), Migraine, Multinodular goiter, LADY (obstructive [...] hours as needed. lidocaine viscous-Alum & Mag Adtyzmhjr-Gourma-pxafcwppwyONVVV oral mouthwash Swish and swallow 15mL by mouth every 6 hours as needed. norgestimate-ethinyl estradiol (Sprintec 28) 0.25-35 MG-MCG tablet Take 1 tablet by mouth at bedtime. nystatin 109795 UNIT/ML oral suspension Swish and swallow 10 [...] Echogenicity: Hyperechoic or isoechoic (1 point) Shape: Opuoy-xmvy-xkhg (0 points) Margin: Smooth (0 points) Echogenic [...] Fellow, Division of Endocrinology, Diabetes, and Metabolism [facility] [place] [address] No follow-ups on file. Patient has verified [...] Fellow, Division of Endocrinology, Diabetes, and Metabolism [facility] [address] documented in this encounter [facility] 09-22-2023 Instructions Latrice Hall MD - 09/22/2023 1:30 PM EDT It was great seeing you today! Division of Endocrinology Outpatient Care [facility] Follow-up appointments: Please arrive at least 20 [...] Any non-urgent results will be relayed via hhgreggt if you have signed up for this service or via a letter through the mail and/or phone call. Communication with your provider: - [facility] [employer] is highly recommended as the most efficient [...] help perpare you for your future visits: [email or web address] --> Patient Care section. Sincerely, Latrice Hall MD Fellow, Division of Endocrinology, Diabetes, and Metabolism [facility] Outpatient Care [place] [address] [place] [address] documented in this encounter [facility] 09-22-2023 Procedure note Associated Ord er(s): CHG US SOFT TISSUE HEAD & NECK REAL TIME IMGE DOCM Ms. Cardenas was seen and examined with Dr. Hall, I independently verified the findings on US and agree with the documented report - thyroid ultrasound report appears in the notes tab. [facility] 09-22-2023 Procedure note Associated Ord er(s): CHG US SOFT TISSUE HEAD & NECK REAL TIME IMGE DOCM Ms. Cardenas was seen and examined with Dr. Hall, I independently verified the findings on US and agree with the documented report - thyroid ultrasound report appears in the notes tab. documented in this encounter [facility] 12-24-2022 History of Present illness Narrative Chief Complaint: Chief Complaint Patient presents with New Patient Reports right side of neck with questionable swelling, continues to have problems with food getting stuck. Has to wash down food with liquids. HPI: Norma Cardenas is a 27 y.o. female smoker / non-smoker who presents 12/24/22 to the [facility] [...] Laterality: N/A; Surgeon: Ramin Denney MD; [facility] WISDOM TEETH [...] 1 Bottle 0 lidocaine viscous-Alum & Mag Kunwxohrk-Hnsdsr-mvgfxtdpaeCCFGK oral mouthwash Swish and swallow 15mL by mouth every 6 hours as needed. 240 mL 0 norgestimate-ethinyl estradiol (Sprintec 28) 0.25-35 MG-MCG tablet Take 1 tablet by mouth at bedtime. nystatin [id number] UNIT/ML oral suspension Swish and swallow 10 [...] / non-smoker who presents 12/24/22 to the [facility] [...] Laterality: Bilateral; Surgeon: Jigar Hutchins MD; Location: [facility] MAIN OR TONSILLECTOMY Bilateral 05/10/2021 Laterality: Bilateral; Surgeon: Charlotte Cárdenas MD; Location: [facility] SAME DAY SURGERY MAIN OR CHOLECYSTECTOMY ROBOTIC N/A 04/06/2019 Laterality: N/A; Surgeon: Ramin Denney MD; Location: [facility] MAIN OR WISDOM TEETH EXTRACTION Social History [...] 1 Bottle 0 lidocaine viscous-Alum & Mag Yflebbulu-Cocwyw-egbquxlyezYVNUG oral mouthwash Swish and swallow 15mL by mouth every 6 hours as needed. 240 mL 0 norgestimate-ethinyl estradiol (Sprintec 28) 0.25-35 MG-MCG tablet Take 1 tablet by mouth at bedtime. nystatin [id number] UNIT/ML oral suspension Swish and swallow 10 [...] decision making for Ms. Cardenas with Regan Neves APRN-TIMMY. Details of my interview, examination findings, and medical decision-making confirmed the findings above. I have personally amended the documentation where appropriate. Doing well based on my examination. Fu/ in PRN if above tests results are not concerning. documented in this encounter [facility] 11-20-2022 History of Present illness Narrative Maternal- Medicine (High Risk Obstetrics) Consultation Indication for consultation: Congenital Bicuspid aortic valve Referring Provider: Herve Jimenez MD History Norma Cardenas is a 27yo G0 LMP 36Zbh40 using nothing for contraception who presents for preconception consultation in the setting of hx congenital bicuspid aortic valve. Her history is also notable for a history of exercise induced asthma and thyroid nodule. She feels well today and has no complaints or concerns. She was recently seen by Dr. Peraza ([facility]) for preconception counseling on 05/21/2022 [...] [facility]. She does not currently have an spool sorter. Ms. Norma Cardenas has the following problems [...] N/A; Surgeon: Ramin Denney MD; Location: [facility] MAIN OR WISDOM TEETH EXTRACTION - [...] 1 Bottle 0 lidocaine viscous-Alum & Mag Uublhnvms-Dyfkab-xzjsmmmtluLYZFD oral mouthwash Swish and swallow 15mL by mouth every 6 hours as needed. 240 mL 0 norgestimate-ethinyl estradiol (Sprintec 28) 0.25-35 MG-MCG tablet Take 1 tablet by mouth at bedtime. nystatin 952118 UNIT/ML oral suspension Swish and swallow 10 [...] . --. SCAN INFO ======= GENERAL SCANNER CLIENT APPLICATION SUPPORT ENGINEER: Yorder MODEL: [employer] Latosha PULSE SEQUENCES: SSFP cine, HASTE morphology, 3D non-contrast MRA CONTRAST AGENT GD CONCENTRATION: 0 M SETUP DATE OF EVENT: SCAN TYPE: Clinical PATIENT TYPE: Outpatient REASON(S) FOR SCAN: Bicuspid AV (known/suspect) REFERRING PHYSICIAN: Carlos Eduardo) Chepe Peraza ATTENDING PHYSICIAN: VIPIN ZAPATA FELLOW: DOMNIGA YANG DO NURSE: Ella Haas RN TECHNOLOGIST: [...] aortic valve and has been followed by [facility]. The patient is currently asymptomatic from a cardiac standpoint, but is at risk for aortic dissection (especially given known ascending aortic dilation), heart failure, NC, and arrhythmias due to expected cardiovascular changes [...] as Marfan syndrome. The patient qualifies for [facility] risk classification II-III which confers an intermediate [...] and severity of complications: Recommendations during - PHOTO LAB TECHNICIAN referral for multi-disciplinary care coordination - Baseline [...] would be appropriate for co-managed care with [facility] for ultrasounds and visits every trimester and that she should contact and establish care obstetrical care with [facility] general spool sorter practice once has a positive test. Thank [...] of care as per the fellow's note. Belel Jose DO Department of Obstetrics and Gynecology Division of Maternal Medicine [facility] documented in this encounter [facility] 06-05-2021 Instructions Charlotte Cárdenas MD - 06/05/2021 11:42 AM EDT ASSESSMENT/PLAN: Status post tonsillectomy Healing well Pathology benign Followup as needed documented in this encounter [facility] 06-05-2021 History of Present illness Narrative [...] Followup as needed documented in this encounter [facility] Evaluation note Diagnosis Postop check- Primary Follow-up examination, following unspecified surgery [facility] Diagnosis Encounter for preconception consultation- Primary Bicuspid aortic valve Congenital insufficiency of aortic valve [facility] Diagnosis Lymphadenopathy- Primary Enlargement of lymph nodes [facility] Lymphadenopathy Enlargement of lymph nodes [facility] Diagnosis Lymphadenopathy Enlargement of lymph nodes [facility] Diagnosis Thyroid nodule Nontoxic uninodular goiter [facility] Diagnosis Thyroid nodule- Primary Nontoxic uninodular goiter [facility] Diagnosis 28 weeks gestation of Third trimester state, incidental documented in this encounter [facility]* Diagnosis 30 weeks gestation of Third trimester state, incidental Aortic stenosis of mother during Hypothyroid in , antepartum (CMS/HCC) Vaginal discharge during in second trimester Encounter for screening for cervical length documented in this encounter [facility] Discharge instructions* Attachments The following attachments cannot be sent through Care Everywhere. * [facility] SMOKING CESSATION LINKS [facility] Reason for Referral Status Reason Specialty Diagnoses / Procedures Referred By Contact Referred To Contact New Request Diagnoses Other fatigue Lymphadenopathy of head and neck Procedures US NECK SOFT TISSUE Darryn Kennedy, SALES AG[employer] [address] [id number] Specialty Diagnoses / Procedures Referred By Charityac t Referred To Contact Diagnoses Lymphadenopathy Procedures XR FLUORO MODIFIED BARIUM SWALLOW-ENT ONLY CHG RADIOLOGIC EXAM ESOPHAGUS SINGLE CONTRAST STUDY Regan Neves APRN-SALES AG[employer] [address] [place] [address] Referral ID Status Reason Start Date Expiration Date V isits Requested Visits Authorized [id number] Auth Not Needed 12/24/2022 01/18/2024 1 1 Specialty Diagnoses / Procedures Referred By Contac t Referred To Contact Diagnoses Lymphadenopathy Regan Neves SHAREMILKER-S[employer] [address] [place] [address] Referral ID Status Reason Start Date Expiration Date V isits Requested Visits Authorized [id number] Pending Review 12/24/2022 01/18/2024 1 1 Specialty Diagnoses / Procedures Referred By Contac t Referred To Contact Diagnoses Lymphadenopathy Procedures CT NECK WITH CONTRAST MN CT NECK TISSUE CONTRAST Regan Neves, SHAREMILKER-SALES [employer] [address] [place] [address] Referral ID Status Reason Start Date Expiration Date Visits Re quested Visits Authorized [id number] Closed 12/24/2022 01/18/2024 1 1 Referral ID Status Reason Start Date Expiration Date Visits Re quested Visits Authorized [id number] Closed 12/24/2022 01/18/2024 1 1 Specialty Diagnoses / Procedures Referred By Contac t Referred To Contact Diagnoses Thyroid nodule Procedures US THYROID MN US,HEAD/NECK TISSUES,REAL TIME Herve Jimenez MD [address] [place] [address] [facility] [address] [place] [address] Referral ID Status Reason Start Date Expiration Date V isits Requested Visits Authorized [id number] New Request 05/27/2023 06/20/2024 1 1 Specialty Diagnoses / Procedures Referred By Contac t Referred To Contact Diagnoses Thyroid nodule Procedures US [facility] Andres Torres MD [address] [facility] [address] [place] [address] Referral ID Status Reason Start Date Expiration Date V isits Requested Visits Authorized [id number] New Request 09/22/2023 10/16/2024 1 1 Assessments [...] section and content) DATE CREATED AUTHOR 08/07/2020 [facility] DATE CREATED AUTHOR AUTHOR'S ORGANIZ ATION 05/28/2022 [facility] DATE CREATED AUTHOR AUTHOR'S ORGANIZ ATION 05/24/2023 [facility] DATE CREATED AUTHOR AUTHOR'S ORGANIZ ATION 09/26/2023 [facility] DATE CREATED AUTHOR AUTHOR'S ORGANIZ ATION 12/04/2023 [facility] DATE CREATED AUTHOR AUTHOR'S ORGANIZ ATION 12/17/2023 [facility] DATE CREATED AUTHOR AUTHOR'S ORGANIZ ATION 12/30/2023 [facility] DATE CREATED AUTHOR AUTHOR'S ORGANIZ ATION 01/01/2024 [facility] dical Specialists EPIC Reason for Visit [...] FOL W/CONT, CHEST Chepe Peraza MD [address] [place] [address] [facility] [address] [place] [address] Referral ID Status Reason Start Date Expiration Date V isits Requested Visits Authorized [id number] Auth Not Needed 05/29/2022 06/23/2023 1 1 [...] MD [address] [place] [address] Referral ID Status Reason Start Date Expiration Date Visits Re quested Visits Authorized [id number] Closed 12/24/2022 01/18/2024 1 1 Specialty Diagnoses / Procedures Referred By Contac t Referred To Contact Diagnoses Lymphadenopathy Procedures CT NECK WITH CONTRAST MN CT NECK TISSUE CONTRAST Regan Neves, SHAREMILKER-SAL[employer] [address] [place] [address] Referral ID Status Reason Start Date Expiration Date Visits Re quested Visits Authorized [id number] Closed 12/24/2022 01/18/2024 1 1 Specialty Diagnoses / Procedures Referred By Contac t Referred To Contact Diagnoses Lymphadenopathy Procedures XR FLUORO MODIFIED BARIUM SWALLOW-ENT ONLY CHG RADIOLOGIC EXAM ESOPHAGUS SINGLE CONTRAST STUDY Regan Neves SHAREMILKER-SALES [employer] [address] [place] [address] Referral ID Status Reason Start Date Expiration Date Visits Re quested Visits Authorized [id number] Closed 12/24/2022 01/18/2024 1 1 Specialty Diagnoses / Procedures Referred By Contac t Referred To Contact Diagnoses Thyroid nodule Procedures US THYROID MN US,HEAD/NECK TISSUES,REAL TIME Herve Jimenez MD [address] [place] [address] [facility] [address] [place] [address] Referral ID Status Reason Start Date Expiration Date V isits Requested Visits Authorized [id number] New Request 05/27/2023 06/20/2024 1 1 Reason Comments Thyroid Nodule Specialty Diagnoses / Procedures Referred By Contac t Referred To Contact Endocrinology, Diabetes & Metabolism Diagnoses Thyroid nodule Regan Neves, SHAREMILKER-SALES [employer] [address] [place] [address] Referral ID Status Reason Start Date Expiration Date V isits Requested Visits Authorized [id number] Pending Review 06/04/2023 06/28/2024 1 1 Reason Comments Routine Visit Care Teams (unrecognized sec tion and content) Manufacturing Business Analyst Relationship Specialty Start Date End Date Herve Jimenez MD [address] [place] [address] PCP - General Family Medicine 09/23/19 Chepe Peraza MD [address] [place] [address] [employer] Pediatrics 04/30/21 Manufacturing Business Analyst Relationship Specialty Start Date End Date Herve Jimenez MD [address] [place] [address] PCP - General Family Medicine 09/23/19 Chepe Peraza MD [address] [place] [address] [employer] Pediatrics 04/30/21 Manufacturing Business Analyst Relationship Specialty Start Date End Date Herve Jimenez MD [address] [place] [address] PCP - General Family Medicine 09/23/19 Chepe Peraza MD [address] [place] [address] [employer] Pediatrics 04/30/21 Manufacturing Business Analyst Relationship Specialty Start Date End Date Herve Jimenez MD [address] [address] PCP - General Family Medicine 09/23/19 Chepe Peraza MD [address] [place] [address] [employer] Pediatrics 04/30/21 Manufacturing Business Analyst Relationship Specialty Start Date End Date Herve Jimenez MD [address] [place] [address] PCP - General Family Medicine 09/23/19 Chepe Peraza MD [address] [place] [address] [employer] Pediatrics 04/30/21 Manufacturing Business Analyst Relationship Specialty Start Date End Date Herve Jimenez MD [address] [place] [address] PCP - General Family Medicine 09/23/19 Chepe Peraza MD [address] [place] [address] [employer] Pediatrics 04/30/21 Manufacturing Business Analyst Relationship Specialty Start Date End Date Herve Jimenez MD [address] [place] [address] PCP - General Family Medicine 09/23/19 Chepe Peraza MD [address] [place] [address] [employer] Pediatrics 04/30/21 Manufacturing Business Analyst Relationship Specialty Start Date End Date Herve Jimenez MD [address] [place] [address] PCP - General Family Medicine 09/23/19 Chepe Peraza MD [address] [place] [address] [employer] Pediatrics 04/30/21 FOR RECORDS PERTAINING TO PATIENTS [...] BE BASED ON THE PRIMARY CLINICAL RECORDS. [employer] provides no warranty or guarantee of the accuracy or completeness of information in this document.
--- NOTE | 2024-01-12 | US_ITS ---
[address] [address] Patient Name: ADRY LEVY MRN: [id number] date: 1995 Sex: F Assigned Patient Location: [facility] Current Patient Location: [facility] Accession/Order Number: [id number] Exam Date: 01/12/2024 10:02 Report Date: 01/12/2024 11:01 At the request of: RICKY PHAM Procedure: US OB BPP w non-stress EXAMINATION: US OB BPP w non-stress HISTORY: Aortic stenosis of mother during O99.419 COMPARISON: No relevant comparison available. TECHNIQUE: Ultrasound biophysical profile was performed in the radiology department. non-reactive stress testing was performed by nursing staff in the birthing center. FINDINGS: BREATHING MOVEMENTS: 2 GROSS BODY MOVEMENTS: 2 TONE: 2 QUALITATIVE AMNIOTIC FLUID VOLUME: 2 PRESENTATION: CEPHALIC HEART RATE: 126.17 bpm AMNIOTIC FLUID VOLUME: 21 cm GESTATIONAL AGE: 32 weeks 0 days US/US OB BPP w non-stress IMPRESSION: Total biophysical profile score: 8 Electronically authenticated by: EULOGIO BARCLAY Date: 01/12/2024 11:01
[2024-01-12 10:37] VITALS: BP 110/71; PULSE 81
== END 2024-01-12 11:23 | disposition home or self-care (01) ==
LOC: US 08:44 → FBC 09:57
PROVIDERS: Visit Provider Obstetrics & Gynecology
DX: O99.413 Diseases of the circulatory system complicating pregnancy, third trimester (principal); I35.0 Nonrheumatic aortic (valve) stenosis; O99.283 Endocrine, nutritional and metabolic diseases complicating pregnancy, third trimester; E03.9 Hypothyroidism, unspecified; O26.893 Other specified pregnancy related conditions, third trimester; N89.8 Other specified noninflammatory disorders of vagina; Z36.86 Encounter for antenatal screening for cervical length; Z3A.32 32 weeks gestation of pregnancy
CPT/HCPCS: 76818

== ENCOUNTER 2024-01-19 07:04 | Outpatient (OUT) | payer OTHER, SELFPAY ==
--- OUTSIDE RECORDS SUMMARY | 2024-01-19 07:07 | XMS_ITS | CCD ---
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 Name Role Phone Unavailable Unavailable Unavailable Herve Jimenez MD Primary Care Provider Chepe Peraza MD Unavailable Herve Jimenez MD Primary Care Unavail able Cristian DORADO, Jake Og Attending UnavailHerve Chiang MD Primary Care Unavail able Cristian DORADO, Jake Og Attending Unavailfred Foster MD, Jake Og Attending UnavailHerve Chiang MD Primary Care Unavail able Herve Jimenez MD Primary Care Provider Chepe Peraza MD Unavailable [phone] Herve Jimenez MD Primary Care Provider [phone] HERVE JIMENEZ Attending Unavailable Chepe Peraza MD [...] SHOEMAKER HERVE J Primary Care Unavailable REGAN NEVES M Referring Unavailable OZER, ENVER Attending Unavailable SHOEMAKER, HERVE J Primary Care Unavailable SHOEMAKER, HERVE J Attending Unavailable SHOEMAKER, HERVE J Referring Unavailable SHOEMAKER, HERVE J Primary Care Unavailable DARRYN DOW Primary Care Unavailable DU PHILIP Referring Unavailable FRUREANNA, DARRYN Primary Care Unavailable MONICA SOFIA Attending Unavailable Unavailable Primary Care Provider Unavailfaith Jimenez MD, Herve Jo Primary Care Provider SAMMY PERAZA R Referring Unavailable SHOEMAKER, HERVE KENYA Primary Care Unavailabl e DUARTE BERNARD Attending Unavailable THERESE GLEASON Referring Unavailable SHOEMAKER, HERVE KENYA Primary Care Unavailabl e CHEPE PERAZA Referring Unavailable SHOEMAKER, HERVE KENYA Primary Care Unavailabl e STU, SAMMY R Referring Unavailable SHOEMAKER, HERVE KENYA Primary Care Unavailabl e SANTI JERONIMO Attending Unavailable IWONA JOSEPH Referring Unavailabl e SHOEMAKER, HERVE KENYA Primary Care Unavailabl e CHEPE PERAZA Referring Unavailable SHOEMAKER, HERVE KENYA Primary Care Unavailabl e STU, SAMMY R Referring Unavailable SHOEMAKER, HERVE KENYA Primary Care Unavailabl e DUARTE BERNARD Attending Unavailable STU, SAMMY R Referring Unavailable SHOEMAKER, HERVE KENYA Primary Care Unavailabl e DI PANCHAL Attending Unavailable STU, SAMMY Attending Unavailable BONNIE, ELLA Attending Unavailable STU, SAMMY Attending Unavailable BONNIE, ELLA Attending Unavailable BONNIE, ELLA Attending Unavailable STU, SAMMY Attending Unavailable BONNIE, ELLA Attending Unavailable PERAZA, CHEPE Attending Unavailable PERAZA, CHEPE Attending Unavailable Allergies Allergy Classification Reported Allergen(s) Allergy Type Date of Onset Reaction(s) Facility (20 sources) Amoxicillin; Translations: [amoxicillin] Drug Allergy 04-14-19 13 Rash, Unknown [facility] Work Phone: (10 sources) Clarithromycin; Translations: [clarithromycin] Drug Allergy 10-07-19 16 Rash [facility] Work Phone: (17 sources) Clindamycin; Translations: [clindamycin] Drug Allergy 03-16-19 18 [facility] Work Phone: (20 sources) Doxycycline; Translations: [doxycycline] Drug Allergy 04-14-19 13 Unknown [facility] Work Phone: (16 sources) Clarithromycin Propensity to adverse reactions to drug 10-07-19 16 Rash, Unknown [facility] Work Phone: (13 sources) Erythromycin; Translations: [ERYTHROMYCIN] Drug Allergy 04-14-19 13 [facility] (12 sources) Spironolactone; Translations: [SPIRONOLACTONE] Drug Allergy 05-27-19 24 Dizziness [facility] (10 sources) Clindamycin/Lincom ycin Drug Intolerance 07-13-19 15 Unknown [facility] (1 source) Spironolactone Drug Allergy 09-09-19 24 [facility] (3 sources) Lincomycin; Translations: [LINCOMYCIN] Drug Allergy 07-13-19 15 [facility] Medications Current Medications Medication Drug Class(es) Dates [...] / zinc oxide 20 mg oral tablet (16 sources) Vitamin B12, Vitamin D, Vitamin C Start: 11-20-2022 take 1 tablet by mouth in the morning Vit-DSS-Fe Fum-FA ( 19) tablet Take 1 tablet by mouth in the morning. 11/20/2022 Active Start: 11-20-2022 take 1 tablet by iveth th once daily Vit-DSS-Fe Fum-FA ( 19) tablet Take 1 tablet by mouth daily. 90 tablet 3 11/20/2022 Active docosahexaenoic acid 120 mg / eicosapentaenoic acid 180 mg oral capsule (2 sources) omega-3 1000 MG capsule capsule Active Ethinyl Estradiol / norgestimate (9 sources) Progestin, Estrogen take 1 tablet by mouth once norgestimate-ethinyl estradioL (ORTHO TRI-CYCLEN,TRINESSA) 0.18/0.215/0.25 mg-35 mcg (28) per tablet Take 1 tablet by mouth. Active take 1 tablet by mouth at bedtim e norgestimate-ethinyl estradiol (Sprintec 28) 0.25-35 MG-MCG tablet [...] 0 05/22/2021 Active lidocaine viscous-Alum & Mag Rckkwdcso-Sctvgk-tykfqwueamZPGJK oral mouthwash (8 sources) Start: 05-22-2021 take 15 mL by mouth every six hours as needed lidocaine viscous-Alum & Mag Meynwessj-Iakdpm-nqilvahitzCDKSR oral mouthwash Swish and swallow 15mL by mouth every 6 hours as needed. 240 mL 05/22/2021 Active Start: 05-22-2021 take 15 mL by mouth every six hours as needed lidocaine viscous-Alum & Mag Makmjkzgo-Thjzbv-fpzcfnjmvhCMAOX oral mouthwash Swish and swallow 15mL by mouth every 6 hours as needed. 240 mL 0 05/22/2021 Active nystatin 130897 unt/ml oral suspension (8 sources) Polyene Antifungal Start: 05-16-2021 take 10 mL by mouth four times daily nystatin 754398 UNIT/ML oral suspension Swish and swallow 10 mL 4 times daily. 280 mL 05/16/2021 Active [place]-3 Fatty Acids (OMEGA 3 PO) (10 sources) [place]-3 Fatty Ac ids (OMEGA 3 PO) Take [...] to 7 days. 20 tablet 05/22/2021 Active no115/iron/folic acid ( 19 ORAL) (1 source) no115/iron/folic acid ( 19 ORAL) Take by mouth. Active Completed/Discontinued Medications Medication Drug Class(es) Dates [...] Chronic Aortic; peripheral; and visceral artery aneurysms (9 sources) Ascending aorta dilatation; Translations: [Thoracic aortic ectasia] Onset: 05-21-2022 01-13-2024 Chronic Asthma (6 sources) Asthma; Translations: [Unspecified asthma, uncomplicated] Onset: 11-20-2022 11-20-2022 Chronic Cardiac and circulatory congenital anomalies (13 sources) Bicuspid aortic valve; Translations: [Congenital insufficiency of aortic valve] Onset: 07-15-2017 11-20-2022 Chronic Cardiac dysrhythmias (4 sources) Palpitations; Translations: [Palpitations] Onset: 07-15-2017 07-15-2017 Episodic Contraceptive and procreative management (5 sources) Patient encounter status; Translations: [Encounter for other general counseling and advice on procreation] Onset: 11-20-2022 11-20-2022 Episodic Headache; including migraine (1 source) Ophthalmic migraine; Translations: [Migraine with aura, not intractable, without status migrainosus] Onset: 06-29-2020 06-29-2020 Chronic Malaise and fatigue (1 source) Fatigue; Translations: [Other fatigue] Episodic Other aftercare (1 source) Surgical follow-up; Translations: [Encounter for follow-up examination after completed treatment for conditions other than malignant neoplasm] Episodic Other complications of (2 sources) Cardiac disease in ; Translations: [Diseases of the circulatory system complicating , unspecified trimester] 12-30-2023 Episodic Other complications of (2 sources) Hypothyroidism in ; Translations: [Endocrine, nutritional and metabolic diseases complicating , unspecified trimester] 12-30-2023 Episodic Other complications of (2 sources) Vaginal discharge; Translations: [Other specified related conditions, second trimester] 12-30-2023 Episodic Other complications of (2 sources) Disorder of cardiovascular system; Translations: [Diseases of the circulatory system complicating , second trimester] 01-13-2024 Episodic Other complications of (1 source) Diseases [...] 10-20-2023 Episodic Other and delivery including normal (6 sources) Third trimester ; Translations: [Encounter for [...] of ] 12-17-2023 Episodic Residual codes; unclassified (2 sources) Gestation period, 30 weeks; Translations: [30 weeks gestation of ] 12-30-2023 Episodic Residual codes; unclassified (1 source) 24 weeks gestation of ; Translations: [24 weeks gestation of ] Onset: 11-18-2023 Episodic Residual codes; unclassified (2 sources) Gestation period, 32 weeks; Translations: [32 weeks gestation of ] 01-14-2024 Episodic Thyroid disorders (13 sources) Thyroid nodule; [...] Translations: [Chronic cholecystitis] Onset: 04-05-2019 04-06-2019 Episodic Conditions associated with dizziness or vertigo (1 source) Dizziness; Translations: [Dizziness and giddiness] Onset: 06-29-2020 06-29-2020 Episodic Lymphadenitis (6 sources) Generalized enlarged lymph nodes; Translations: [Lymphadenopathy] Onset: 01-09-2023 12-24-2022 Episodic Mood disorders (5 sources) Mood disorders Onset: 12-24-2022 12-24-2022 Other gastrointestinal disorders (2 sources) Dysphagia, pharyngeal phase; Translations: [Dysphagia, pharyngeal phase] Onset: 01-09-2023 Episodic NEGATED: Highlighted row has been ruled out!Unclassified (10 sources) No known active problems 05-27-2023 Results Test Name Value Interpretation Reference Range Facility Urinalysis macro (dipstick) panel (U)on 01-14-2024 Bilirubin, UA Negative Negative - 4(70) +++ mg/dL [facility] Blood, UA Negative Negative - 50 Sina/mcL [facility] Clarity, UA Clear [facility] Color, UA Roxanne [facility] Glucose, UA Negative Negative - 2000(110) ++++ mg/dL [facility] Interpretation and review of laboratory results Abnormal [facility] Ketones, UA Positive Negative - 160(16) ++++ mg/dL [facility] Comment on above: 15 Leukocytes, UA Trace Negative - 500+++ Amos/mcL [facility] Nitrite, UA Negative Negative - Positive [facility] pH, UA 7 5 - 9 [facility], [facility]A Positive Negative - 2000(20) ++++ mg/dL [facility] Comment on above: 30 Spec Grav, UA 1.02 1 - 1.03 [facility] Urobilinogen, UA 0.2 0.2 - 12 mg/dL [facility] 37on 01-13-2024 37 Echo results: Bicuspid aortic valve Trivial to mild aortic stenosis, peak instantaneous systolic pressure gradient of 16mmHg Moderate to severely dilated ascending aorta (unchanged) Mildly dilated aortic root Trivial aortic valve insufficiency Trivial to mild mitral valve insufficiency Normal biventricular systolic function Patient is 30 weeks Mildly dilated annulus. Mildly dilated aortic root. Severely dilated ascending aorta. Sinus of Valsalva is 3.31cm. STJ is 3.23cm. Ascending aorta is 3.9 cm. Aortic annulus is 2.52cm. Aortic root z-score is 2.07. Aortic STJ z-score is 3.58. Ascending aorta z-score is 6.13. Aortic annulus z-score is 2.29. OK with procardia as long as you are not dizzy. ECHO at 36 weeks Normal [facility] Office Visiton 01-13-2024 Follow-up visit [id number] Lisa Cardenas 1995 F Date Provider Department Center 01/13/2024 HayderCHEPE HICKS RPW PED Simon Pedanabel No family history on file Level of Service:46097 [place] OFFICE/OUTPATIENT ESTABLISHED MOD MDM 30 MIN Reason for Visit and Comments: Aortic Dilatation [Other] - 32 wks Normal [facility] Orders Onlyon 01-13-2024 Orders Only [id number] Lisa Cardenas 1995 F Date Provider Department [place] 01/13/2024 [id number] MONTALVO RPW PED Simon Rao No family history on file Normal [facility] Urinalysis macro (dipstick) panel (U)on 12-30-2023 Bilirubin, UA Negative Negative - 4(70) +++ mg/dL [facility] Blood, UA Negative Negative - 50 Sina/mcL [facility] Healthcare Clarity, UA Clear [facility] Color, UA Yellow [facility] Glucose, UA Negative Negative - 1999(110) ++++ mg/dL [facility] Interpretation and review of laboratory results Normal [facility] Ketones, UA Negative Negative - 160(16) ++++ mg/dL [facility] Leukocytes, UA Negative Negative - 500+++ Amos/mcL [facility] Nitrite, UA Negative Negative - Positive [facility] pH, UA 6.5 5 - 9 [facility] Health[facility] e Protein, UA Negative Negative - 1999(20) ++++ mg/dL [facility] Spec Grav, UA 1.015 1 - 1.03 [facility] care Urobilinogen, UA 0.2 0.2 - 12 mg/dL [facility] UA (CLEAN/CATCH) STEMMER MACHINE/GIUSEPPE RO IF IND.on 12-27-2023 BILIRUBIN URINE Negative NEGATIVE [facility] BLOOD URINE Negative NEGATIVE [facility] Clarity (U) CLEAR CLEAR [facility] Color (U) LT. YELLOW YELLOW [facility] GLUCOSE URINE UA Negative NEGATIVE mg/dL [facility] Interpretation and review of laboratory results Abnormal [facility] Ketones Ql (U) TRACE Abnormal NEGATIVE mg/dL [facility] Leukocyte esterase Test strip Ql (U) Negative NEGATIVE [facility] Health[facility] e NITRITE URINE Negative NEGATIVE [facility] care pH (U) 7.0 [pH] 5.0 - 9.0 [facility] Health[facility] e PROTEIN URINE Negative NEG/TRACE mg/dL [facility] SPECIFIC GRAVITY URINE <=1.005 Abnormal 1.005 - 1.025 [facility] URINE MICROSCOPIC INDICATED NO [facility] UROBILINOGEN URINE 0.2 EU/dL 0.2 - 1.0 EU/dL [facility] e Urinalysis macro (dipstick) panel (U)on 12-17-2023 Bilirubin, UA Negative Negative - 4(70) +++ mg/dL [facility] Blood, UA Negative Negative - 50 Sina/mcL [facility] Clarity, UA Clear [facility] re Color, UA Yellow [facility] e Glucose, UA Negative Negative - 1999(110) ++++ mg/dL [facility] Interpretation and review of laboratory results Abnormal [facility] Ketones, UA Negative Negative - 160(16) ++++ mg/dL [facility] Leukocytes, UA Trace Negative - 500+++ Amos/mcL [facility] Nitrite, UA Negative Negative - Positive [facility] pH, UA 7.5 5 - 9 [facility] e Protein, UA Negative Negative - 1999(20) ++++ mg/dL [facility] Spec Grav, UA 1.020 1 - 1.03 [facility] Urobilinogen, UA 0.2 0.2 - 12 mg/dL [facility] CBC with Diffon 12-09-2023 Abs. Basophil 0.09 k/uL Normal 0.00-0.20 [facility] Comment on above: Performed By: #### C P, CDP #### [facility] [address] [place] [address] [place] [address] Conservation Enforcement Officer: Clark Mata MD Abs.Imm.Granulocyte 0.17 k/uL Normal 0.00-0.30 [facility] Comment on above: Performed By: #### C P, CDP #### [facility] [address] [place] [address] Conservation Enforcement Officer: Clark Mata MD Abs.Neutrophil (Seg) 5.63 k/uL Normal 1.50-8.10 [facility] Comment on above: Performed By: #### C P, CDP #### [address] [place] [id number] Conservation Enforcement Officer: Clark Mata MD Basophils/100 WBC (Bld) 1 % Normal 0-2 [facility] Comment on above: Performed By: #### C P, CDP #### [address] [place] [id number] Conservation Enforcement Officer: Clark Mata MD Eosinophils (Bld) [#/Vol] 0.13 10*3/uL Normal 0.00-0.44 [facility] Comment on above: Performed By: #### C P, CDP #### [address] [place] [id number] Conservation Enforcement Officer: Clark Mata MD Eosinophils/100 WBC (Bld) 2 % Normal 1-4 [facility] Comment on above: Performed By: #### C P, CDP #### [address] [place] [address] Conservation Enforcement Officer: Clark Mata MD Erythrocyte distribution width (RBC) [Ratio] 12.7 % Normal 11.8-14.4 [facility] Comment on above: Performed By: #### C P, CDP #### [address] [place] [phone] Conservation Enforcement Officer: Clark Mata MD Hematocrit (Bld) [Volume fraction] 36.4 % Normal 36.3-47.1 [facility] Comment on above: Performed By: #### C P, CDP #### [address] [place] [address] Conservation Enforcement Officer: Clark Mata MD Hemoglobin (Bld) [Mass/Vol] 12.6 g/dL Normal 11.9-15.1 [facility] Comment on above: Performed By: #### C P, CDP #### [facility] [address] [place] [address] Conservation Enforcement Officer: Clark Mata MD Immature granulocytes/100 WBC (Bld) 2 % High 0 [facility] Comment on above: Performed By: #### C P, CDP #### [facility] [address] [place], [facility] Conservation Enforcement Officer: Calrk Mata MD Lymphocytes (Bld) [#/Vol] 1.80 10*3/uL Normal 1.10-3.70 [facility] Comment on above: Performed By: #### C P, CDP #### [address] [place], [facility] Conservation Enforcement Officer: Clark Mata MD Lymphocytes/100 WBC (Bld) 21 % Low 24-43 [facility] Comment on above: Performed By: #### C P, CDP #### [address] [place], [facility] Conservation Enforcement Officer: Clark Mata MD MCH (RBC) [Entitic mass] 30.4 pg Normal 25.2-33.5 [facility] Comment on above: Performed By: #### C P, CDP #### [address] [place], [place] [address] Conservation Enforcement Officer: Clark Mtaa MD MCHC (RBC) [Mass/Vol] 34.6 g/dL Normal 28.4-34.[address] [facility] Comment on above: Performed By: #### C P, CDP #### [address] [place] [address] Conservation Enforcement Officer: Clark Mata MD MCV (RBC) [Entitic vol] 87.9 fL Normal 82.6-102.9 [facility] Comment on above: Performed By: #### C P, CDP #### [facility] [address] [place], [place] [id number] Conservation Enforcement Officer: Clark Mata MD Monocytes (Bld) [#/Vol] 0.61 10*3/uL Normal 0.10-1.20 [facility] Comment on above: Performed By: #### C P, CDP #### [facility] [address] [place], [place] [id number] Conservation Enforcement Officer: Clark Mata MD Monocytes/100 WBC (Bld) 7 % Normal 3-12 [facility] Comment on above: Performed By: #### C P, CDP #### [facility] [address] [place], [place] [address] Conservation Enforcement Officer: Clark Mata MD Neutrophil (Seg) 67 % High 36-65 [facility] Comment on above: Performed By: #### C P, CDP #### [address] [place], [facility] Conservation Enforcement Officer: Clark Mata MD NRBC Automated 0.0 per 100 WBC Normal 0.0 [facility] Comment on above: Performed By: #### C P, CDP #### [address] [place], [facility] Conservation Enforcement Officer: Clark Mata MD Platelet mean volume (Bld) [Entitic vol] 10.7 fL Normal 8.1-13.5 [facility] Comment on above: Performed By: #### C P, CDP #### [facility] [address] [place], [facility] Conservation Enforcement Officer: Clark Mata MD Platelets (Bld) [#/Vol] 162 10*3/uL Normal 138-453 [facility] Comment on above: Performed By: #### C P, CDP #### [facility] [address] [place], [place] [id number] Conservation Enforcement Officer: Clark Mata MD RBC (Bld) [#/Vol] 4.14 10*6/uL Normal 3.95-5.11 [facility] Comment on above: Performed By: #### C P, CDP #### [facility] [address] [place], [place] [id number] Conservation Enforcement Officer: Clark Mata MD WBC (Bld) [#/Vol] 8.4 10*3/uL Normal 3.5-11.3 [facility] Comment on above: Performed By: #### C P, CDP #### [address] [place], [place] [id number] Conservation Enforcement Officer: Clark Mata MD Comp Metabolic Profon 2023 Albumin [Mass/Vol] 3.7 g/dL Normal 3.5-5.2 [facility] Comment on above: Performed By: #### C P, CDP #### [address] [place], [place] [id number] Conservation Enforcement Officer: Clark Mata MD Albumin/Glob Ratio 1.4 Normal 1.0-2.5 [facility] Comment on above: Performed By: #### C P, CDP #### [address] [place] [address] Conservation Enforcement Officer: Clark Mata MD Alkaline Phos 47 U/L Normal 35-104 [facility] Comment on above: Performed By: #### C P, CDP #### [facility] [address] [place] [address] [place] [address] Conservation Enforcement Officer: Clark Mata MD ALT [Catalytic activity/Vol] 13 U/L Normal 10-35 [facility] Comment on above: Performed By: #### C P, CDP #### [address] [place], [place] [id number] Conservation Enforcement Officer: Clark Mata MD Anion gap [Moles/Vol] 9 mmol/L Normal 9-[address] [facility] Comment on above: Performed By: #### C P, CDP #### [facility] [address] [place], [place] [phone] Conservation Enforcement Officer: Clark Mata MD AST [Catalytic activity/Vol] 16 U/L Normal 10-35 [facility] Comment on above: Performed By: #### C P, CDP #### [facility] [address] [place], [place] [id number] Conservation Enforcement Officer: Clark Mata MD Bilirubin [Mass/Vol] 0.3 mg/dL Normal 0.00-1.20 [facility] Comment on above: Performed By: #### C P, CDP #### [facility] [address] [place], [place] [id number] Conservation Enforcement Officer: Clark Mata MD BUN/CRE Ratio 17 Normal 9-20 [facility] Comment on above: Performed By: #### C P, CDP #### [facility] [address] [place], [place] [phone] Conservation Enforcement Officer: Clark Mata MD Calcium [Mass/Vol] 8.7 mg/dL Normal 8.6-10.4 [facility] Comment on above: Performed By: #### C P, CDP #### [facility] [address] [place], [place] [id number] Conservation Enforcement Officer: Clark Mata MD Chloride [Moles/Vol] 104 mmol/L Normal 98-107 [facility] Comment on above: Performed By: #### C P, CDP #### [facility] [address] [place], [place] [id number] Conservation Enforcement Officer: Clark Mata MD CO2 [Moles/Vol] 21 mmol/L Normal 20-31 [facility] Comment on above: Performed By: #### C P, CDP #### [facility] [address] [place], [place] [phone] Conservation Enforcement Officer: Clark Mtaa MD Creatinine [Mass/Vol] 0.6 mg/dL Normal 0.50-0.[address] [facility] Comment on above: Performed By: #### C P, CDP #### [facility] [address] [place] [address] Conservation Enforcement Officer: Clark Mata MD GFR/1.73 sq M.predicted among non-blacks MDRD (S/P/Bld) [Vol rate/Area] mL/min/{1.73_m2} Normal >60 [facility] Comment on above: Result Comment: These [...] Performed By: #### C P, CDP #### [facility] [address] [place] [address] Conservation Enforcement Officer: Clark Mata MD Glucose [Mass/Vol] 75 mg/dL Normal 74-99 [facility] Comment on above: Performed By: #### C P, CDP #### [address] [place] [address] Conservation Enforcement Officer: Clark Mata MD Potassium [Moles/Vol] 4.0 mmol/L Normal 3.7-5.[address] [facility] Comment on above: Performed By: #### C P, CDP #### [facility] [address] [place] [address] Conservation Enforcement Officer: Clark Mata MD Protein [Mass/Vol] 6.2 g/dL Low 6.6-8.7 [facility] Comment on above: Performed By: #### C P, CDP #### [facility] [address] [place] [address] Conservation Enforcement Officer: Clark Mata MD Sodium [Moles/Vol] 134 mmol/L Low 136-145 [facility] Comment on above: Performed By: #### C P, CDP #### [facility] [address] [place], [place] [id number] Conservation Enforcement Officer: Clark Mata MD Urea nitrogen [Mass/Vol] 10 mg/dL Normal 6-20 [facility] Comment on above: Performed By: #### C P, CDP #### [facility] [address] [place], [place] [phone] Conservation Enforcement Officer: Clark Mata MD Lipaseon 8 Lipase [Catalytic activity/Vol] 41 U/L Normal 13-60 [facility] Comment on above: Performed By: #### L IP #### [facility] [address] [place], [place] [phone] Conservation Enforcement Officer: Clark Mata MD UA w/Reflex Cultureon 2 Bilirubin, SemiQt,Ur Negative Normal NEG [facility] Comment on above: Performed By: #### U AX, UMICAO #### [facility] [address] [place], [place] [id number] Conservation Enforcement Officer: Clark Mata MD Blood, Urine Negative Normal NEG [facility] Comment on above: Performed By: #### U AX, UMICAO #### [facility] [address] [place], [place] [id number] Conservation Enforcement Officer: Clark Mata MD Clarity (U) Clear Normal CLEAR [facility] Comment on above: Performed By: #### U AX, UMICAO #### [facility] [address] [place], [place] [address]783 Conservation Enforcement Officer: Clark Mata MD Color (U) Yellow Normal YEL [facility] Comment on above: Performed By: #### U AX, UMICAO #### [facility] [address] [place], [place] 1070783 Conservation Enforcement Officer: Clark Mata MD Glucose Ql (U) Negative Normal NEG [facility] Hospital Comment on above: Performed By: #### U AX, UMICAO #### [facility] [address] [place] [address] [place], [place] [id number] Conservation Enforcement Officer: Clark Mata MD Ketones Ql (U) Negative Normal NEG [facility] Comment on above: Performed By: #### U AX, UMICAO #### [facility] [address] [place] [address] [place], [place] [phone] Conservation Enforcement Officer: Clark Mata MD Leukocyte esterase Test strip Ql (U) Negative Normal NEG [facility] Comment on above: Performed By: #### U AX, UMICAO #### [address] [place], [place] [id number] Conservation Enforcement Officer: Clark Mata MD Nitrite,Ur Negative Normal NEG [facility] Comment on above: Performed By: #### U AX, UMICAO #### [facility] [address] [place] [address] [place], [place] 533[address]83 Conservation Enforcement Officer: Clark Mata MD PH,Ur 7.0 Normal 5.0-9.0 [facility] Comment on above: Performed By: #### U AX, UMICAO #### [facility] [address] [place] [address] [place], [place] 694[address]83 Conservation Enforcement Officer: Clark Mata MD Protein Ql (U) Negative Normal NEG [facility] Comment on above: Performed By: #### U AX, UMICAO #### [facility] [address] [place] [address] [place], [place] 178[address]83 Conservation Enforcement Officer: Clark Mata MD Spec. Sawyer,Ur 1.015 Normal 1.010-1.020 [facility] Comment on above: Performed By: #### U AX, UMICAO #### [facility] [address] [place] [address] [place] [address] Conservation Enforcement Officer: Clark Mata MD Urobilinogen,Ur Normal Normal 0.0-1.0 [facility] Comment on above: Performed By: #### ARNOLD MARTINO #### [facility] [address] [place] [address] Conservation Enforcement Officer: Clark Mata MD US GALLBLADDER RUQon 024 [...] Sabi Leung MD 12/09/23 Final result Normal [facility] Urinalysis,Microon 4 Epithelial cells LM Ql (Urine sed) 0 TO 2 Normal 0-25 [facility] Comment on above: Performed By: #### ARNOLD MARTINO #### [facility] [address] [place], [place] [id number] Conservation Enforcement Officer: Clark Mata MD Urine RBC's None Normal 0-2 [facility] Comment on above: Performed By: #### ARNOLD MARTINO #### [facility] [address] [place], [place] 2109683 Conservation Enforcement Officer: Clark Mata MD Urine WBC's 0 TO 2 Normal 0-5 [facility] Comment on above: Performed By: #### U AX, ARNOLD #### [facility] [address] [place] [address] Conservation Enforcement Officer: Clark Mata MD 12-03-2023 36 Echo order faxed over [facility] 12-02-2023 36 Called and left detailed message for patient [facility] 36 This will be fine Normal [facility] 11-24-2023 36 Patient called stating that they [facility] does not have any appointment for an echo until 32 week. She wants to know if it is okay for her to get it at 32 weeks or what else do you suggest. Please advise [facility] 11-23-2023 36 I called the Green and I left a message on her voicemail that I would put an order in but she needs to call the [facility] scheduling line and get it scheduled in our office will fax the order to them. I asked her to schedule it for 30 weeks gestation. Please make sure that the order is faxed to [facility] scheduling. [facility] Orders Onlyon 11-23-2023 Orders Only [id number] Lisa Cardenas 1995 F Date Provider Department Center 11/23/2023 CHEPE GOODSON No family history on file [facility] 3611-21-2023 36 Pt called in stating [...] next apt with Dr. Peraza on 01/12. [facility] Telephoneon 11-21-2023 Telephone [id number] Lisa Cardenas 1995 F Date Provider Department Center 11/21/2023 CHEPE GOODSON No family history on file Reason for Visit and Comments: ECHO [Other] [facility] Office Visiton 10-07-2023 Follow-up visit [id number] Lisa Cardenas 1995 F Date Provider Department Center 10/07/2023 CHEPE GOODSON CLARISSE Rao No family history on file Level of Service:65140 [place] OFFICE/OUTPATIENT ESTABLISHED MOD MDM 30 MIN Reason for Visit and Comments: Heart Problem [54] - Transfer from [facility] - 18 wks [facility] CHG US SOFT TISSUE HEAD & NE CK REAL TIME IMGE DOCMon 09-23-2023 Radiology Study observation (narrative) [facility] CHG US SOFT TISSUE HEAD & NE CK REAL TIME IMGE DOCSsm [facility] 09-22-2023 Andres Torres MD 09/23/2023 6:28 PM Ms. Cardenas was seen and examined with Dr. Hall, I independently verified the findings on US and agree with the documented report - thyroid ultrasound report appears in the notes tab. [facility] US Unspecified body regionOr dered By: Unassigned Pacs on 09-22-2023 [facility] Work Phone: US Unspecified body regionon 09-22-2023 Radiology Study observation (narrative) [facility] 36on 07-04-2023 36 Created in error [facility] 36 Scheduled an appointment October 06 at 8:30am. [facility] 36 If this patient schedules a [...] her and left her message as well. [facility] 36on 07-03-2023 36 Patient is newly (4wks) and is currently scheduled in August for her yearly visit.. She is asking if she needs to reschedule to do the 20-24 wk gestational testing. PH: [phone] Normal [facility] Telephoneon 07-03-2023 Telephone [id number] Lisa Peña 1995 F Date Provider Department Center 07/03/2023 [id number], RAMIRO RPW PED [employer] No family history on file Normal [facility] VZ Immunityon 06-23-2023 VZ Immunity 3.84 Normal >1.09 [facility] Comment on above: Result Comment: Interpretation: IMMUNE Reference Range: <0.91 Not Immune 0.91-1.09 Equivocal >1.09 Immune Performed By: #### V ZI #### [facility] Amanda Huff DBA [employer] [address] [id number] Conservation Enforcement Officer: Bear Mejias MD US THYROIDon 06-03-2023 US [...] Echogenicity: Hyperechoic or isoechoic (1 point) Shape: Bygvs-lvfq-sfrt (0 points) Margin: Smooth (0 points) Echogenic [...] using ACR TI-RADS. (JACR July 2016) Normal [facility] FREE T4on 05-23-2023 Free T4 [Mass/Vol] 1.0 ng/dL Normal 0.9-1.8 [facility] Comment on above: Order Comment: Locat ion: Performed By: #### L [id number], [id number] #### ANIL PRESSELY ([id number]) [facility] ([facility]) [address], [address] [place] [address] TSHon 05-23-2023 TSH 2.599 MIU/mL Normal 0.550-4.780 [facility] Comment on above: Order Comment: Locat ion: Performed By: #### L 127, [id number] #### ANIL PRESSLEY ([id number]) [facility] ([facility]) [address], [address] [place] [address] RF videography Hypopharynx a nd Esophagus Views [...] report for further details and dietary recommendations. [facility] Radiology Study observation (narrative) [facility] RF videography Hypopharynx a nd Esophagus Views W liquid and paste contrast PO during swallowingOrdered By: Gisele Hardy on 01-09-2023 [facility] Work Phone: XR FLUORO MODIFIED BARIUM [...] for further details and dietary recommendations. Normal [facility] CT NECK WITH CONTRASTon 10-1 [...] error, please notify the sender immediately at [phone] and permanently delete the original report and destroy any copies or printouts. Normal [facility] Oncology Consultant Cytology Reporton 2022 Oncology Consultant Cytology Report Clinical Information Specimen Collection Date: [...] smears in the future. 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 Patient reports some pain [...] and the last time she saw her drywall taper thought there might have been some dilation [...] will send patient for preconceptual counseling with [facility] because of her cardiac abnormality Follow-up [...] intractable, w/o (more content not included)... Normal [facility] Culture, Urineon 08-04-2020 RPT Microbiology results Abnormal [facility] Comment on above: Order Comment: Items in this order include: Culture, Urine Testing Performed By: [facility] [address] [place] [address]. [place] [address] Dr. Anil Pressley, Conservation Enforcement Officer Result Comment: [place] Count: 10,000-25,000 CFU/ML Final Result: [...] R Performed By: #### C 734 #### [facility] [address] [place] [address] Culture, Urineon 03-14-2020 RPT Microbiology results Abnormal [facility] Comment on above: Order Comment: Items in this order include: Culture, Urine Testing Performed By: [facility] [address] [place] [address]. [place] [address] Dr. Shaunna Cummins, Conservation Enforcement Officer Result Comment: [place] Count: >100,000 CFU/ML Final Result: [...] R Performed By: #### C 734 #### [facility] [address] [place] [address] Culture, Urineon 12-14-2019 RPT Microbiology results Abnormal [facility] Comment on above: Order Comment: Items in this order include: Culture, Urine Testing Performed By: [facility] Primary [facility] [address] [place] [address] Dr. Shaunna Cummins, Conservation Enforcement Officer Result Comment: [place] Count: 50,000-75,000 CFU/ML Final Result: [...] R Performed By: #### C 734 #### [facility] [address] [place] [address] Vital Signs Date Time Vital Sign Value Performing Clinician Facility 01-14-2024 10:57-0500 Body mass index (BMI) [Ratio] 28.15 kg/m2 Ella SQUIRES Work Phone: [facility] 01-14-2024 10:57-0500 Body weight 74.39 kg Ella SQUIRES Work Phone: [facility] 01-14-2024 10:57-0500 Diastolic blood pressure 64 mm[Hg] Ella SQUIRES Work Phone: [facility] 01-14-2024 10:57-0500 Systolic blood pressure 102 mm[Hg] Ella SQUIRES Work Phone: [facility] 01-13-2024 13:51-0500 Body height 162.6 cm Duarte Bernard MD Work Phone: [facility] 01-13-2024 13:51-0500 Body mass index (BMI) [Ratio] 28.12 kg/m2 Duarte Bernard MD Work Phone: [facility] 01-13-2024 13:51-0500 Body weight 74.3 kg Duarte Bernard MD Work Phone: [facility] 01-13-2024 13:51-0500 Diastolic blood pressure 75 mm[Hg] Duarte Bernard MD Work Phone: [facility] 01-13-2024 13:51-0500 Heart rate 79 /min Duarte Bernard MD Work Phone: [facility] 01-13-2024 13:51-0500 Systolic blood pressure 109 mm[Hg] Duarte Bernard MD Work Phone: [facility] 12-30-2023 10:58-0400 Body mass index (BMI) [Ratio] 28.12 kg/m2 Sammy Stu DO Work Phone: [facility] 12-30-2023 10:58-0400 Body weight 74.3 kg Sammy Stu DO Work Phone: [facility] 12-30-2023 10:58-0400 Diastolic blood pressure 64 mm[Hg] Sammy Stu DO Work Phone: [facility] 12-30-2023 10:58-0400 Systolic blood pressure 100 mm[Hg] Sammy Stu DO Work Phone: [facility] 12-17-2023 10:27-0400 Body mass index (BMI) [Ratio] 27.6 kg/m2 Ella SQUIRES Work Phone: [facility] 12-17-2023 10:27-0400 Body weight 72.94 kg Ella Wilkinsey PA Work Phone: [facility] 12-17-2023 10:27-0400 Diastolic blood pressure 64 mm[Hg] Ella Nicole PA Work Phone: [facility] 12-17-2023 10:27-0400 Systolic blood pressure 100 mm[Hg] Ella Wilkinsey PA Work Phone: [facility] 09-22-2023 13:37-0400 Body height 162.6 cm Latrice Hall MD Work Phone: [facility] 09-22-2023 13:37-0400 Body mass index (BMI) [Ratio] 25.4 kg/m2 Latrice Hall MD Work Phone: [facility] 09-22-2023 13:37-0400 Body temperature 97.3 [degF] Latrice Hall MD Work Phone: [facility] 09-22-2023 13:37-0400 Body weight 67.13 kg Latrice Hall MD Work Phone: [facility] 09-22-2023 13:37-0400 Diastolic blood pressure 62 mm[Hg] Latrice Hall MD Work Phone: [facility] 09-22-2023 13:37-0400 Systolic blood pressure 114 mm[Hg] Latrice Hall MD Work Phone: [facility] 12-24-2022 16:30-0400 Body height 162.6 cm Regan LATHAM Work Phone: [facility] 12-24-2022 16:30-0400 Body mass index (BMI) [Ratio] 23.17 kg/m2 Regan Edinson TRAVEL ATTENDANTS-BOTTOM PRECIPITATOR OPERATOR Work Phone: [facility] 12-24-2022 16:30-0400 Body weight 61.24 kg Regan Neves TRAVEL ATTENDANTS-BOTTOM PRECIPITATOR OPERATOR Work Phone: [facility] 12-24-2022 16:30-0400 Diastolic blood pressure 68 mm[Hg] Regan Neves TRAVEL ATTENDANTS-BOTTOM PRECIPITATOR OPERATOR Work Phone: [facility] 12-24-2022 16:30-0400 Heart rate 71 /min Reganemperatriz Neves TRAVEL ATTENDANTS-BOTTOM PRECIPITATOR OPERATOR Work Phone: [facility] 12-24-2022 16:30-0400 Systolic blood pressure 108 mm[Hg] Regan Neves TRAVEL ATTENDANTS-BOTTOM PRECIPITATOR OPERATOR Work Phone: [facility] 12-24-2022 11:37-0400 Body mass index (BMI) [Ratio] 23.22 kg/m2 Emile Armas MD Work Phone: [facility] 12-24-2022 11:37-0400 Body temperature 98.2 [degF] Emile Armas MD Work Phone: [facility] 12-24-2022 11:37-0400 Body weight 61.37 kg Emile Armas MD Work Phone: [facility] 12-24-2022 11:37-0400 Diastolic blood pressure 78 mm[Hg] Emile Arams MD Work Phone: [facility] 12-24-2022 11:37-0400 Heart rate 73 /min Emile Armas MD Work Phone: [facility] 12-24-2022 11:37-0400 Respiratory rate 16 /min Emile Armas MD Work Phone: [facility] 12-24-2022 11:37-0400 SaO2% (BldA) [Mass fraction] 99 % Emile Armas MD Work Phone: [facility] 12-24-2022 11:37-0400 Systolic blood pressure 123 mm[Hg] Emile Armas MD Work Phone: [facility] Encounters Encounter Date Encounter Type Care Provider Facility Start: 01-14-2024 End: 01-14-2024 Bamboo flowsheet Ella SQUIRES Work Phone: [facility] Start: 01-14-2024 End: 01-14-2024 Bamboo flowsheet Ella SQUIRES Work Phone: [facility] Start: 01-14-2024 End: 01-14-2024 ambulatory ELLA NICOLE Not Available Start: 01-14-2024 End: 01-14-2024 flow sheet Ella SQUIRES Work Phone: [facility] Comment on above: Third trimester preg rohan; 32 weeks gestation of Start: 01-13-2024 End: 01-13-2024 Office outpatient visit 15 minutes Duarte Bernard MD Work Phone: Maternal- Medicine at [facility] Comment on above: Ascending aorta dila tion ([facility]) (Primary Dx); 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 Start: 01-13-2024 End: 01-13-2024 ambulatory [facility] Start: 01-13-2024 End: 01-13-2024 ambulatory CHEPE PERAZA [facility] Start: 12-30-2023 End: 12-30-2023 Bamboo flowsheet Sammy Stu DO Work Phone: [facility] Start: 12-30-2023 End: 12-30-2023 Bamboo flowsheet Sammy Stu DO Work Phone: [facility] Start: 12-30-2023 End: 12-30-2023 ambulatory SAMMY STU Not Available Start: 12-30-2023 End: 12-30-2023 flow sheet Sammy Stu DO Work Phone: [facility] Comment on above: 30 weeks gestation o f ; Third trimester ; Aortic stenosis of mother during ; Hypothyroid in , antepartum (CMS/HCC); Vaginal discharge during in second trimester; Encounter for screening for cervical length Start: 12-29-2023 End: 12-29-2023 ambulatory [facility] Start: 12-27-2023 End: 12-27-2023 Clinisync Result Encounter Sammy Stu DO Work Phone: [facility] External Department Unsolicited Start: 12-27-2023 End: 12-27-2023 Clinisync Result Encounter Sammy Stu DO Work Phone: [facility] External Department Unsolicited Start: 12-17-2023 End: 12-17-2023 Bamboo flowsheet Ella SQUIRES Work Phone: [facility] Start: 12-17-2023 End: 12-17-2023 Bamboo flowsheet Ella SQUIRES Work Phone: [facility] Start: 12-17-2023 End: 12-17-2023 flow sheet Ella SQUIRES Work Phone: [facility] Comment on above: 28 weeks gestation o f ; Third trimester Start: 12-17-2023 End: 12-17-2023 ambulatory ELLA NICOLE Not Available Start: 12-09-2023 End: 12-09-2023 Emergency department patient visit [facility] Start: 11-26-2023 End: 11-26-2023 ambulatory ELLA NICOLE Not Available Start: 11-18-2023 End: 11-18-2023 [facility] Start: 10-31-2023 End: 10-31-[address] [facility] Start: 10-30-2023 End: 10-30-2023 ambulatory [facility] Not Available Start: 10-20-2023 End: 10-20-2023 [facility] Start: 10-07-2023 End: 10-07-2023 ambulatory CHEPE PERAZA [facility] Start: 09-30-2023 End: 09-30-2023 ambulatory ELLA NICOLE Not Available Start: 09-22-2023 End: 09-22-2023 Office outpatient new 45 minutes Latrice Hall MD Work Phone: [facility] Comment on above: Thyroid nodule (Prim subhash Dx) Start: 09-22-2023 ambulatory LATRICE HALL Facilit y:[facility] Start: 09-01-2023 End: 09-01-2023 ambulatory SAMMY PERAZA Not Available Start: 07-31-2023 End: 07-31-2023 ambulatory DI PANCHAL Not Available Start: 06-20-2023 End: 06-20-2023 ambulatory DARRYN Robles [facility] Start: 06-02-2023 ambulatory HERVE Benavides ility:[facility] Start: 06-02-2023 End: 06-02-2023 Subsequent hospital visit by physician Herve Jimenez MD Work Phone: Department of Radiology Comment on above: Arrived Start: 05-27-2023 End: 05-27-2023 ambulatory DI Kika ABDULKADIR Not Available Start: 05-23-2023 End: 05-23-2023 ambulatory HERVE JIMENEZ [facility] Start: 01-09-2023 End: 01-09-2023 Subsequent hospital visit by physician Emile Armas MD Work Phone: Department of Radiology Comment on above: Arrived Start: 01-09-2023 ambulatory HERVE Benavides ility:[facility] Start: 12-24-2022 End: 12-24-2022 Subsequent hospital visit by physician Regan Neves TRAVEL ATTENDANTS-BOTTOM PRECIPITATOR OPERATOR Work Phone: [facility] [place] Comment on above: Arrived Start: 12-24-2022 ambulatory REGAN NEVES Facilit y:[facility] Start: 12-24-2022 End: 12-24-2022 Office outpatient new 45 minutes Emile Armas MD Work Phone: Department of Otolaryngology Comment on above: Lymphadenopathy (Alicia ramin Dx) Start: 12-24-2022 ambulatory SELF SELF Facility:[facility] Start: 11-20-2022 End: 11-20-2022 Office consultation new/estab patient 60 min Belle Jose DO Work Phone: [facility] [place] Comment on above: Encounter for precon ception consultation (Primary Dx); Bicuspid aortic valve Start: 11-20-2022 ambulatory [facility] Start: 08-15-2022 End: 08-15-2022 Subsequent hospital visit by physician Chepe Peraza MD Work Phone: Cardiovascular [facility] Comment on above: Canceled (Cancel [place] son Not Listed - Please provide detailed information) Start: 05-21-2022 End: 05-22-2022 ambulatory Jake Foster MD Facility:[facility] Start: 06-05-2021 End: 06-05-2021 Postop follow up visit related to original px Charlotte Cárdenas MD Work Phone: [facility] [place] Comment on above: Postop check (Primar y Dx) Start: 03-18-2018 End: 03-18-2018 Patient encounter procedure Darryn Dow Work Phone: [facility] Scheduling Comment on above: Other fatigue; Lymph adenopathy of head and neck Procedures Date Procedure Procedure Detail Performing Clinician Start: 01-14-2024 Urnls dip stick/tabl et rgnt non-auto w/o micrscp Ella SQUIRES Work Phone: Start: 12-30-2023 Urnls dip stick/tabl et rgnt non-auto w/o micrscp Sammy Stu DO Work Phone: Start: 12-27-2023 [facility] UA (CLEAN/CATCH) STEMMER MACHINE/MICRO IF IND. Sammy Stu DO Work Phone: Start: 12-17-2023 Urnls dip stick/tabl et rgnt non-auto w/o micrscp Ella SQUIRES Work Phone: Start: 09-30-2023 Microscopic observat ion [Identifier] in Cervix by Cyto stain Duarte Bernard MD Work Phone: Start: 09-22-2023 US Unspecified body region Latrice Hall MD Work Phone: Start: 09-22-2023 Us soft tissue head & neck real time imge docm Latrice Hall MD Work Phone: Start: 01-09-2023 Radiologic exam esop hagus single contrast study Regan Neves TRAVEL ATTENDANTS-BOTTOM PRECIPITATOR OPERATOR Work Phone: Plan of Treatment Date Care Activity Detail Author Start: 01-07-2034 DTaP,Tdap and Td Vaccines (6 - Td or Tdap) DTaP,Tdap and Td Vaccines (6 - Td or Tdap) [facility] Start: 09-29-2026 Screening for malign ant neoplasm of cervix Pap Smear [facility] Start: 01-12-2025 Adult BMI Screening Adult BMI Screen ing [facility] Start: 01-12-2025 Tobacco Screening Tobacco Screening [facility] Start: 05-28-2024 End: 05-28-2024 Patient encounter procedure 05/28/2024 10:40 AM EDT Office Visit [facility] [address] [place] [phone] Di Panchal, TAVIA [address] [place] [address] [facility] Start: 02-12-2024 End: 02-12-2024 Patient encounter procedure 02/12/2024 2:00 PM EST Appointment Jodie Johnston [facility] [address] [place] [address] Jodie Johnston [facility] Start: 02-11-2024 End: 02-11-2024 Telemedicine consultation with patient 02/11/2024 8:00 AM EST Telemedicine Maternal- Medicine at [facility] [address] [place] [address] Duarte Bernard MD [address] [facility], [address] [place] [address] M[facility]- Medicine at [facility] Start: 01-27-2024 End: 01-27-2024 ambulatory 01/27/2024 10:30 AM EST Initial [facility] [address] [place] [address] [facility] Start: 01-26-2024 End: 01-26-2024 Patient encounter procedure 01/26/2024 1:30 PM EST Routine [facility] [address] [place] [phone] Sammy Peraza DO [address] [place], [place] [id number] [facility] Start: 01-14-2024 End: 01-14-2024 Patient encounter procedure 01/14/2024 10:30 AM EST Routine [facility] [address] [facility] [facility] [place] [phone] Ella Nicole PA [address] [facility] [address] [place], [place] [id number] [facility] Start: 12-30-2023 End: 12-29-2024 US biophysical profile w non stress test US biophysical profile w non stress test Imaging Routine Aortic stenosis of mother during Hypothyroid in , antepartum ([facility]/HCC) Expected: 12/30/2023 (Approximate), Expires: 12/29/2024 [facility] Work Phone: Comment on above: Expected: 12/30/2023 (Approximate), Expires: 12/29/2024 Start: 12-30-2023 End: 12-29-2024 US for US OB AMNIOTIC FLUID VOLUME Imaging Routine Vaginal discharge during in second trimester Expected: 12/30/2023 (Approximate), Expires: 12/29/2024 [facility] Comment on above: Expected: 12/30/2023 (Approximate), Expires: 12/29/2024 Start: 12-30-2023 End: 12-29-2024 US Pelvis transvaginal US OB transvaginal Imaging Routine Encounter for screening for cervical length Expected: 12/30/2023 (Approximate), Expires: 12/29/2024 [facility] Comment on above: Expected: 12/30/2023 (Approximate), Expires: 12/29/2024 Start: 12-30-2023 End: 12-30-2023 Patient encounter procedure 12/30/2023 10:30 AM EDT Routine [facility] [address] [place] [phone] Sammy Peraza DO [address] [facility] [address] [place], [place] [id number] [facility] Start: 12-17-2023 End: 12-17-2023 Patient encounter procedure 12/17/2023 10:20 AM EDT Routine [facility] [address] [place] [address] Ella Nicole PA [address] [place] [address] Arrived [facility] Comment on above: Arrived Start: 11-09-2023 Influenza vaccination [facility] Start: 06-03-2023 ambulatory Ambulatory Facility:[facility] Start: 01-09-2023 End: 01-09-2023 ambulatory 01/09/2023 8:30 AM EDT Rehab Services Visit [facility] [address] [place] [phone] [facility] Start: 01-09-2023 End: 01-09-2023 Patient encounter procedure 01/09/2023 8:30 AM EDT Appointment Department of Radiology [address] [place] [address] Department of Radiology Start: 12-24-2022 End: 12-25-2023 CT Neck W contrast IV [facility] Comment on above: Expected: 12/24/2022 , Expires: 12/25/2023 1 Occurrences starti ng 12/24/2022 until 12/24/2022 Start: 12-24-2022 End: 12-25-2023 RF videography Hypopharynx and Esophagus Views W liquid and paste contrast PO during swallowing XR FLUORO MODIFIED BARIUM SWALLOW-ENT ONLY Imaging Routine Lymphadenopathy Expected: 12/24/2022, Expires: 12/25/2023 [facility] Comment on above: Expected: 12/24/2022 , Expires: 12/25/2023 Start: 11-08-2022 COVID-19 VACCINE ( season) COVID-19 VACCINE ( season) [facility] Start: 11-08-2022 Influenza vaccination [facility] Start: 11-08-2020 Influenza vaccination INFLUENZA VACC INE (#1) [facility] Start: 03-27-2018 End: 03-27-2018 Ambulatory 03/27/2018 Appointment Ultrasound Darryn Dow, BOTTOM PRECIPITATOR OPERATOR [address] [address] Department of Radiology Start: 03-18-2018 End: 03-18-2019 US scan of neck US NECK SOFT TISSUE Routine Other fatigue Lymphadenopathy of head and neck Expected: 03/18/2018, Expires: 03/18/2019 [facility] Work Phone: Comment on above: Expected: 03/18/2018 , Expires: 03/18/2019 Start: 11-08-2017 Influenza vaccination INFLUENZA VACC INE (#1) [facility] Work Phone: Start: 2015 Screening for malign ant neoplasm of cervix [facility] Start: 2013 Hepatitis B vaccination HEP B VACCINE (1 of 3 - 19+ 3-dose series) [facility] Start: 2013 Third diphtheria, tetanus and acellular pertussis (DTaP) vaccination TDAP (ADULT) [facility] Start: 02-04-2012 Adult BMI Follow Up Plan Adult BMI F ollow Up Plan [facility] Start: 02-04-2012 GONORRHEA SCREEN GONORRHEA SCREEN [facility] Work Phone: Start: 02-04-2012 Tetanus vaccination TETANUS [facility] Start: 2010 Screening for Chlamy kyle trachomatis CHLAMYDIA SCREEN [facility] Work Phone: Start: 2009 HIV screening HIV SCREENING DISCUSSI ON [facility] Start: 2007 HIV screening HIV SCREENING DISCUSSI ON [facility] Work Phone: Start: 2006 Depression Screening Depression Scre ening [facility] Start: 03-13-2005 Tetanus vaccination TETANUS [facility] Start: 2005 Vaccination for jelly n papillomavirus HPV VACCINE ADOL (1 - Female 3-dose series) [facility] Work Phone: Start: 02-04-2000 PNEUMOCOCCAL VACCINE SERIES (1 of 2 - PCV) PNEUMOCOCCAL VACCINE SERIES (1 of 2 - PCV) [facility] Start: 1999 COVID-19 VACCINE (1) COVID-19 VACCIN E (1) [facility] Start: 1994 COVID-19 VACCINE (#1) COVID-19 VACCI NE (#1) [facility] Start: 1994 Hepatitis C antibody , confirmatory test HEPATITIS C VIRUS SCREENING [facility] Start: 1994 Hepatitis C screening HEPATITI S C VIRUS SCREENING [facility] CHLAMYDIA TRACHOMATI S (GENITO/STI) CHLAMYDIA TRACHOMATIS (GENITO/STI) Lab Routine Vaginal discharge during in second trimester Ordered: 12/30/2023 [facility] Comment on above: Ordered: 12/30/2023 Laryngoscopy flexibl e diagnostic AZ LARYNGOSCOPY FLEXIBLE DIAGNOSTIC [place] Charge Routine Lymphadenopathy Ordered: 12/24/2022 [facility] Comment on above: Ordered: 12/24/2022 Neisseria gonorrhoea e DNA [Presence] in Unspecified specimen by VANESSA with probe detection Neisseria gonorrhea DNA probe, direct Lab Routine Vaginal discharge during in second trimester Ordered: 12/30/2023 [facility] Comment on above: Ordered: 12/30/2023 SURESWAB(R) ADVANCED VAGINITIS PLUS, TMA SURESWAB(R) ADVANCED VAGINITIS PLUS, TMA Pathology and Cytology Routine Vaginal discharge during in second trimester Ordered: 12/30/2023 [facility] Comment on above: Ordered: 12/30/2023 End: 06-02-2023 US Thyroid gland [facility] Work Phone: Comment on above: 1 Occurrences starti ng 06/02/2023 until 06/02/2023 Immunizations Immunization Date Immunization Notes Care Provider [facility] 12-25-2022 influenza virus vaccine, unspecified formulation Latrice Hall MD Work Phone: [facility] 01-08-2016 influenza virus vaccine, unspecified formulation Charlotte Cárdenas MD Work Phone: [facility] Payers Date Payer Category Payer Unknown [id number] 2023 Commercial Managed C are - POS [employer] [id number] 2023 Managed Care HMO (unspecified) [id number] 2023 Private Health Insurance PUMA ALEGRE [id number] 2023-Present [address] [place] [address] [id number] 2023 Private Health Insurance [id number] 2021 Unknown [id number] 2020 Unknown [id number] [id number] [id number] 2020 Unknown [id number] 1994 Unknown [id number] 2.16.840.1.453871.3.57 9.2.196 1994 Unknown [id number] 2.16.840.1.410883.3.57 9.2.196 1994 Unknown [id number] 2.16.840.1.238120.3.57 9.2.196 1994 Unknown [id number] 2.16.840.1.722383.3.57 9.2.1260 1994 Unknown [id number] 2.16.840.1.938191.3.57 9.2.594 1994 Unknown [id number] 2.16.840.1.344685.3.57 9.2.594 1994 Unknown [id number] 2.16.840.1.210753.3.57 9.2.594 1994 Unknown [id number] 2.16.840.1.839211.3.57 9.2.594 1994 Unknown [id number] 2.16.840.1.939739.3.57 9.2.594 1994 Unknown [id number] 2.16.840.1.578174.3.57 9.2.594 1994 Unknown [id number] 2.16.840.1.688186.3.57 9.2.594 1994 Unknown [id number] 2.16.840.1.870383.3.57 9.2.594 1994 Unknown [id number] 2.16.840.1.520208.3.57 9.2.173 1994 Unknown [id number] 2.16.840.1.327300.3.57 9.2.173 1994 Unknown [id number] 2.16.840.1.954364.3.57 9.2.1286 1994 Unknown [id number] 2.16.840.1.203879.3.57 9.2.1286 1994 Unknown [id number] 2.16.840.1.055707.3.57 9.2.1286 1994 Unknown [id number] 2.16840.1.204074.3.57 9.2.1286 1994 Unknown [id number] 2.16.840.1.255013.3.57 9.2.1286 1994 Unknown [id number] 2.16.840.1.147530.3.57 9.2.1286 1994 Unknown [id number] 2.16.840.1.907900.3.57 9.2.1286 1994 Unknown [id number] 2.16840.1.041427.3.57 9.2.1286 1994 Unknown [id number] 2.16.840.1.769617.3.57 9.2.1259 1994 Unknown [id number] 2.16.840.1.522413.3.57 9.2.1259 1994 Unknown [id number] 2.16.840.1.745409.3.57 9.2.1259 1994 Unknown [id number] 2.16.840.1.226078.3.57 9.2.1259 1994 Unknown [id number] 2.16.840.1.082534.3.57 9.2.1259 1994 Unknown [id number] 2.16.840.1.409065.3.57 9.2.1259 1994 Unknown [id number] 2.16.840.1.096718.3.57 9.2.1259 1994 Unknown [id number] 2.16.840.1.629316.3.57 9.2.1259 1994 Unknown [id number] 2.16.840.1.958877.3.57 9.2.1259 Social History Date Type Detail Facility Tobacco smoking stat us PRIS Unknown if ever smoked [facility] Work Phone: Start: 1995 Sex Assigned At Not on file [facility] Work Phone: Start: 04-21-2018 End: 05-27-2023 Tobacco smoking status NHIS Never smoked tobacco [facility] Start: 04-21-2018 End: 05-27-2023 Tobacco use and exposure Smokeless tobacco non-user [facility] Start: 06-05-2021 End: 09-22-2023 Alcohol intake Current drinker of alcohol (finding) [facility] Start: 04-15-2020 History SDOH Alcohol Frequency 2 [facility] Start: 04-15-2020 History SDOH Alcohol Std Drinks 1 [facility] Start: 05-10-2021 History SDOH Alcohol Comment 1-2 drinks per month [facility] Start: 05-26-2021 End: 06-05-2021 Exposure to SARS-CoV-2 (event) Not sure [facility] Start: 04-15-2020 End: 05-27-2023 History of Social function [facility] Start: 04-15-2020 End: 05-27-2023 Alcohol Use Disorder Identification Test - Consumption [AUDIT-C] [facility] How often to you hav e a drink containing alcohol? Monthly or less [facility] How many standard dr inks containing alcohol do you have on a typical day? 1 or 2 [facility] How often do you hav e 6 or more drinks on 1 occasion? Never [facility] Start: 03-16-2017 Gender identity Identifies as female gender (finding) [facility] Adolescent depressio n screening assessment 0 [facility] Start: 1995 Sex assigned at Female [facility] Start: 11-26-2023 End: 12-30-2023 Alcoholic beverage intake Ex-drinker (finding) [facility] Start: 06-16-2023 [facility] Start: 06-29-2020 Alcohol Comment rarely [facility] Start: 10-11-2014 Sex Female (finding) [facility] Clinical Notes 06-05-2021 to 01-14-2024 TAVIA Parsons - 01/14/2024 10:30 AM Macario Oliver CMA - 01/13/2024 2:30 PM Jaime Bernard MD - 01/13/2024 2:30 PM Blu Srivastava LPN - 12/30/2023 10:30 AM EDTPatient Instructions Note Date & Type Note Facility 01-14-2024 History of Present illness Narrative Reason for Appointment: Patient ID: Lisa Cardenas is a 28 y.o. female who presents for Routine Visit Patient presents today for Return OB appointment. MEDICATIONS Current Outpatient Medications Medication Instructions omega-3 1000 MG capsule capsule [place]-3 Fatty Acids (OMEGA 3 PO) Take by mouth Vit-DSS-Fe Fum-FA ( 19) tablet 1 tablet, Daily RT ALLERGIES Allergies Allergen Reactions Doxycycline Unknown ulercative esophagus Ulcerative esophagus Other Reaction(s): ulcer esophagus Other Reaction(s): Other Ulcerative esophagus Other Reaction(s): ulcer esophagus ulercative esophagus ulercative esophagus Ulcerative esophagus Other Reaction(s): ulcer esophagus Erythromycin Other Reaction(s): Other Spironolactone Dizziness Amoxicillin Rash and Unknown As a child Other Reaction(s): Other Clarithromycin Rash and Unknown Ok to take azithromycin Other Reaction(s): Unknown Ok to take azithromycin Ok to take azithromycin Clindamycin Other Reaction(s): Other Able to take IV- just had throat ulceration when swallowed pill Other Reaction(s): ulcer esophagus ulcerated esophagus Clindamycin/Lincomycin Unknown Ulcerated esophagus ulcerated esophagus Able to take IV- just had throat ulceration when swallowed pill Other Reaction(s): ulcer esophagus Lincomycin Other Reaction(s): Other, Unknown Ulcerated esophagus Ulcerated esophagus ulcerated esophagus Able to take IV- just had throat ulceration when swallowed pill Other Reaction(s): ulcer esophagus PROBLEMS Active Ambulatory Problems Diagnosis Date Noted No Active Ambulatory Problems Resolved Ambulatory Problems Diagnosis Date Noted No Resolved Ambulatory Problems No Additional Past Medical History HISTORY PAST MEDICAL HISTORY SOCIAL HISTORY No past medical history on file. Social History Tobacco Use Smoking status: Never Smokeless tobacco: Never Substance Use Topics Alcohol use: Not Currently Drug use: Never FAMILY HISTORY Family History Problem Relation Name Age of Onset Cancer Father Estrada Peña Hypertension Maternal Grandfather Michael Holder Hypertension Paternal Grandmother Shagufta Hernandez Breast cancer Father's Sister Diana Rileynson Hyperlipidemia Father's Sister Diana Rileynson Hypertension Father's Sister Diana Latonya Hypertension Father's Sister Lakishanatasha Barry Hypertension Father's Brother Tucker Casey Seizures Brother Sean Casey Stroke Mother's Brother Adelso Holder SURGICAL HISTORY [...] Exam Constitutional: Appearance: Normal appearance. She is normal weight. HENT: Head: Normocephalic. Cardiovascular: Rate and Rhythm: Normal rate. Pulses: Normal pulses. Pulmonary: Effort: Pulmonary effort is normal. Breath sounds: Normal breath sounds. Abdominal: Palpations: Abdomen is soft. Musculoskeletal: General: Normal range of motion. Neurological: General: No focal deficit present. Mental Status: She is alert and oriented to person, place, and time. Psychiatric: Mood and Affect: Mood normal. Behavior: Behavior normal. Thought Content: Thought content normal. Judgment: Judgment normal. Vitals and nursing note reviewed. Vitals: Estimated body mass index is 28.15 kg/m as calculated from the following: Height as of 05/27/22: 5' 4 . Weight as of this encounter: 164 lb. BP: 102/64 Patient's last menstrual period was 06/02/2023. ASSESSMENT & PLAN ICD-10-CM 1. Third trimester Z34.93 POCT urinalysis dipstick manually resulted 2. 32 weeks gestation of Z3A.32 Return OB: Patient presents today for a routine obstetrics appointment. Patient is currently 32w2d . Patient states she is doing well but has complaints of being tired due to current . Patient has verbalizes frequent movement. labor precautions was discussed/given and patient was instructed to perform kick counts three times a day. Pt does complain of still having contractions. Pt has been having this issue since she was 29 weeks . Pt had her NST done Friday and contractions were noted by the OB nurse stated the patient. Patient is going to continue to be off until 35 weeks work due to contractions in hopes to prevent early delivery. Patient agrees with plan of care. We will reassess in 2 weeks. Patient to continue nst and bpp Orders Placed This Encounter Procedures POCT urinalysis dipstick manually resulted Follow Up: Patient is to return to office in 2 week for routine OB appointment. Documented by Clair Joseph MA on behalf of: TAVIA Parsons documented in this encounter [facility] 01-13-2024 History of Present illness Narrative Headache/epigastric pain/blurry vision/swelling? No Cramping/contractions? Yes, every 2-3 mins has been to ob triage about 2 weeks ago gets her nst with [facility] Abnormal vaginal discharge? No Spotting or vaginal bleeding?no Loss or gush of fluid like your water may have broken? No Recent ER visits or hospitalizations? 2 weeks ago, contractions Any concerns that you would like me to mention to the provider today? No REASON FOR OFFICE VISIT: Mild aortic dilation. HISTORY OF PRESENT ILLNESS: Lisa Cardenas is a pleasant 28 y.o. G 1 P0 at 32w1d due on Estimated Date of Delivery: 03/08/24 . has been complicated with 1. Maternal aortic bicuspid aortic valve with mild post dilated valvular aortic dilation in the ascending aorta. Last maternal echocardiography in 2020. Patient has an established drywall taper Bicommissural and bicuspid aortic valve with mild systolic leaflet doming and mild flow acceleration associated with trivial to mild aortic insufficiency. Moderately dilated ascending aorta. Ascending Aorta: 3.76cm (z 5.60) new finding Normal biventricular systolic function Maternal cardiac MRI also confirmed the findings 2022 Cardiac MRI: 1. Left sided aortic arch with normal branching pattern; the left vertebral artery appears to arise directly from the aortic arch. 2. Dilated ascending aorta measuring 3.9 cm; with remaining measurements below. 3. Patent proximal celiac and superior mesenteric arteries. Most recent echocardiography done shows stable ECHO results Bicuspid aortic valve Trivial to mild aortic stenosis, peak instantaneous systolic pressure gradient of 16mmHg Moderate to severely dilated ascending aorta (unchanged) Mildly dilated aortic root Trivial aortic valve insufficiency Trivial to mild mitral valve insufficiency Normal biventricular systolic function Patient is 30 weeks 2. Echogenic cardiac focus and choroid plexus cyst in the fetus. Patient has opted out of genetic screening. 3. Maternal gestational hypothyroidism. Small thyroid remnant in the patient. She has seen fire control system installer. No future testing or ultrasound required per Endo. 4. 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 Currently the patient has no complaints. The patient denies nausea, vomiting, abdominal pain, vaginal bleeding, SOB or chest pain. Patient Active Problem List Diagnosis Bicuspid aortic valve Palpitations Ocular migraine Dizziness Congenital heart disease Ascending aorta dilation (CMS-HCC) ALLERGIES: Allergies Allergen Reactions Doxycycline ulercative esophagus Amoxicillin Clarithromycin Clindamycin ulcerated esophagus Clindamycin Doxycycline Erythromycin Spironolactone Amoxicillin Rash Biaxin [Clarithromycin] Rash CURRENT MEDICATIONS: Current Outpatient Medications: norgestimate-ethinyl estradioL (ORTHO TRI-CYCLEN,TRINESSA) 0.18/0.215/0.25 mg-35 mcg (28) per tablet, Take 1 tablet by mouth. (Patient not taking: Reported on 05/21/2022), Disp: , Rfl: no115/iron/folic acid ( 19 ORAL), Take by mouth., Disp: , Rfl: Past Medical History: Diagnosis Date Bicuspid aortic valve Thyroid disease REVIEW OF SYSTEMS: Head and Neck: Negative for any dizziness and headaches. Cardiovascular and Respiratory System: Denies any chest pain, shortness of breath, and coughing. Abdominal and System: Denies any abdominal pain, nausea, vomiting, vaginal bleeding, and vaginal discharge REVIEW OF ULTRASOUND. Pertinent Ultrasound findings are see report. PHYSICAL EXAMINATION: Ht 162.6 cm (5' 4 ) Wt 74.3 kg (163 lb 12.8 oz) LMP 06/02/2023 BMI 28.12 kg/m . Gravid abdomen, Respirations not labored. Normal gait well oriented in time place and person. RECOMMENDATION: 1. Normal interval growth. 2. Routine care 3. Complete transfer of care To the [facility] at [facility] and delivery at [facility]. 4. Consult to [facility] done today 5. Continue testing at her OB office 6. Delivery at 39 or 40 weeks gestation at [facility] 7. Stable and therefore patient is still a candidate for vaginal delivery. 8. Dr. Peraza Cardiology need to be notified and consulted formally at the time of induction of labor Thank you for allowing me to participate in Lisa Cardenas care. If there are any questions, please do not hesitate to call me. Sincerely, DUARTE BERNARD MD documented in this encounter [facility] 01-13-2024 Note Lonnie Peres [address] [facility] [phone] January 13, 2024 Patient: Lisa Cardenas Date of : 1995 Date of Visit: 01/13/2024 Dear Herve Jimenez MD: I had the pleasure of seeing Lisa Cardenas at our pediatric cardiology clinic on 01/13/2024 for Cardiac follow-up. Lisa is an almost 29-year-old female currently at 32 weeks gestation of her first who has been followed by me with a bicuspid aortic valve with minimal aortic stenosis and trivial regurgitation. There is associated ascending aortic dilation. Heart function has otherwise been normal and she has done well from a cardiac perspective with no cardiac related symptoms throughout the . She has shown steady expected weight gain and has had normal movement with no signs of distress. We have been following her aortic root by echocardiography and it has remained fairly stable between 38 to 40 mm in size. Her biggest issue has been that for the past 2 weeks she is had ongoing contractions every 2 to 3 minutes with no uterine dilation. She has not had any amniotic fluid leak and her membranes are reportedly intact. Previous ultrasound had demonstrated bilateral choroid plexus cysts which have since resolved and there is an echogenic structure in the left ventricle which is commonly seen but no other congenital cardiac abnormality was seen in the fetus. The Patient did tell me that at 1 time in November she was having some right side pain and was sent for abdominal ultrasound which was relatively normal . Her noncardiac review of systems is fairly unremarkable unless she lays back which can sometimes give her more heartburn or respiratory like symptoms because of the uterus compressing her diaphragm. She has however been sleeping well and has not had any infectious related symptoms and is also eating well. She has had a history of a lingual thyroid and some borderline thyroid levels but was seen by endocrinology who feels that she is otherwise normal. Because of her current contractions she is off work and she is scheduled to see high risk maternal- medicine tomorrow. She tells me that they are discussed the potential to start Procardia as a tocolytic agent. The rest of her noncardiac review of systems is unremarkable Current Outpatient Medications Medication Sig Dispense Refill [...] when swallowed pill Other Reaction(s): ulcer esophagus Review of Systems - Respiratory ROS, Gastrointestinal ROS, Genitourinary ROS, Hematologic, Endocrinologic ROS, Musculoskeletal, Immunologic, Infectious ROS, Neurologic ROS are unremarkable. On physical exam the patient was alert, cooperative, acyanotic and in no apparent distress. Vitals: 01/13/24 0843 BP: 111/77 BP Location: Right arm Patient Position: Sitting BP Cuff Size: Adult Pulse: 81 SpO2: 99% Weight: 73.9 kg (162 lb 14.7 oz) Height: 1.653 m (5' 5.08 ) HEENT was normal. Lungs were clear [...] was normal. EKG demonstrated: Normal sinus rhythm with normal cardiac intervals and persistent juvenile T wave in the V1 precordial lead. Echocardiogram demonstrated: Bicuspid aortic valve Trivial to mild aortic stenosis, peak instantaneous systolic pressure gradient of 16mmHg Moderate to severely dilated ascending aorta (unchanged) 39 mm. Mildly dilated aortic root Trivial aortic valve insufficiency Trivial to mild mitral valve insufficiency Normal biventricular systolic function Patient is 30 weeks Maternal- medicine comments on a single (more content not included)... [facility] 12-30-2023 History of Present illness Narrative Reason for Appointment: Patient ID: Lisa Cardenas is a 28 y.o. female who presents for Routine Visit Patient presents today for Return OB appointment. MEDICATIONS Current Outpatient Medications Medication Instructions [place]-3 Fatty Acids (OMEGA 3 PO) Take by [...] nursing note reviewed. Exam conducted with a baseball club manager present. Vitals: Estimated body mass index is [...] test I35.0 4. Hypothyroid in , antepartum (CMS/HCC) O99.280 US biophysical profile w non stress [...] Sammy Peraza DO documented in this encounter [facility] 12-17-2023 History of Present illness Narrative Reason for Appointment: Patient ID: Lisa Cardenas is a 28 y.o. female who presents for Routine Visit Patient presents today for Return OB appointment. MEDICATIONS Current Outpatient Medications Medication Instructions [place]-3 Fatty Acids (OMEGA 3 PO) Oral Vit-DSS-Fe [...] Sister Diana Hanks Hypertension Father's Sister Lakisha Barry Hypertension Father's Brother Tucker Peña Seizures [...] nursing note reviewed. Exam conducted with a baseball club manager present. Vitals: Estimated body mass index is [...] of: TAVIA Parsons documented in this encounter [facility] 10-07-2023 Note Lonnie Peres [address] [facility] [address] October 07, 2023 Patient: Lisa Cardenas Date [...] use. She is scheduled to fly to [place] to see her in the near future [...] Normal biventricular systoli (more content not included)... [facility] 10-07-2023 Note Outpatient echo Must use antibiotic for dental procedures May fly Passive second stage deliver in [facility] 09-22-2023 History of Present illness Narrative RFC: Patient with thyroid nodule. Most recent US showing nodule TI-RADS 3 Regan Neves, TRAVEL ATTENDANTS-* HPI: Ms. Cardenas is a 28 y.o. [...] hours as needed. lidocaine viscous-Alum & Mag Cumwhqsra-Eonwnj-oaotafogvkXOLIB oral mouthwash Swish and swallow 15mL by mouth every 6 hours as needed. norgestimate-ethinyl estradiol (Sprintec 28) 0.25-35 MG-MCG tablet Take 1 tablet by mouth at bedtime. nystatin [id number] UNIT/ML oral suspension Swish and swallow 10 [...] Echogenicity: Hyperechoic or isoechoic (1 point) Shape: Vplic-cazn-vych (0 points) Margin: Smooth (0 points) Echogenic [...] Fellow, Division of Endocrinology, Diabetes, and Metabolism [facility] at the [facility] [place] [address] No follow-ups on file. Patient has verified [...] Fellow, Division of Endocrinology, Diabetes, and Metabolism [facility] [place] [address] documented in this encounter [facility] 09-22-2023 Instructions Latrice Hall MD - 09/22/2023 1:30 PM EDT It was great seeing you today! Division of Endocrinology [facility] Follow-up appointments: Please arrive at least [...] Any non-urgent results will be relayed via [employer]ward if you have signed up for this [...] help perpare you for your future visits: [email or web address] --> Patient Care section. Sincerely, Latrice Hall MD Fellow, Division of Endocrinology, Diabetes, and Metabolism [facility] at the [address] [place] [address] documented in this encounter [facility] 09-22-2023 Procedure note Associated Ord er(s): CHG US SOFT TISSUE HEAD & NECK REAL TIME IMGE DOCM Ms. Cardenas was seen and examined with Dr. Hall, I independently verified the findings on US and agree with the documented report - thyroid ultrasound report appears in the notes tab. [facility] 09-22-2023 Procedure note Associated Ord er(s): CHG US SOFT TISSUE HEAD & NECK REAL TIME IMGE DOCM Ms. Cardenas was seen and examined with Dr. Hall, I independently verified the findings on US and agree with the documented report - thyroid ultrasound report appears in the notes tab. documented in this encounter [facility] 12-24-2022 History of Present illness Narrative Chief Complaint: Chief Complaint Patient presents with New Patient Reports right side of neck with questionable swelling, continues to have problems with food getting stuck. Has to wash down food with liquids. HPI: Lisa Cardenas is a 27 y.o. female smoker / non-smoker who presents 12/24/22 to the [facility] for [...] Laterality: Bilateral; Surgeon: Charlotte Cárdenas MD; Location: [facility] SAME DAY SURGERY MAIN OR CHOLECYSTECTOMY ROBOTIC N/A 04/06/2019 Laterality: N/A; Surgeon: Ramin Denney MD; [facility] W[facility]DOM TEETH EXTRACTION [...] 1 Bottle 0 lidocaine viscous-Alum & Mag Aqktmrrej-Nkyrsr-silgzvcufgOPZMR oral mouthwash Swish and swallow 15mL by mouth every 6 hours as needed. 240 mL 0 norgestimate-ethinyl estradiol (Sprintec 28) 0.25-35 MG-MCG tablet Take 1 tablet by mouth at bedtime. nystatin 806504 UNIT/ML oral suspension Swish and swallow 10 [...] / non-smoker who presents 12/24/22 to the [facility] for [...] Laterality: Bilateral; Surgeon: Jigar Hutchins MD; Location: [facility] MAIN OR TONSILLECTOMY Bilateral 05/10/2021 Laterality: Bilateral; Surgeon: Charlotte Cárdenas MD; Location: [facility] SAME DAY SURGERY MAIN OR CHOLECYSTECTOMY ROBOTIC N/A 04/06/2019 Laterality: N/A; Surgeon: Ramin Denney MD; [facility] WISDOM TEETH EXTRACTION Social History [...] 1 Bottle 0 lidocaine viscous-Alum & Mag Eenkteisr-Dqbwvd-hzrfeqwgcdHBSYV oral mouthwash Swish and swallow 15mL by mouth every 6 hours as needed. 240 mL 0 norgestimate-ethinyl estradiol (Sprintec 28) 0.25-35 MG-MCG tablet Take 1 tablet by mouth at bedtime. nystatin 199048 UNIT/ML oral suspension Swish and swallow 10 [...] not concerning. documented in this encounter [facility] 11-20-2022 History of Present illness Narrative Maternal- Medicine (High Risk Obstetrics) Consultation Indication for consultation: Congenital Bicuspid aortic valve Referring Provider: Herve Jimenez MD History Lisa Cardenas is a 27yo G0 LMP [id number] using nothing for contraception who presents for [...] [facility]. She does not currently have an minister. Ms. Lisa Cardenas has the following problems [...] N/A; Surgeon: Ramin Denney MD; [facility] WISDOM TEETH EXTRACTION - [...] 1 Bottle 0 lidocaine viscous-Alum & Mag Unnuxeevw-Okhbsd-jvwhxbevwnITGSS oral mouthwash Swish and swallow 15mL by mouth every 6 hours as needed. 240 mL 0 norgestimate-ethinyl estradiol (Sprintec 28) 0.25-35 MG-MCG tablet Take 1 tablet by mouth at bedtime. nystatin [id number] UNIT/ML oral suspension Swish and swallow 10 [...] . --. 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 The patient is currently asymptomatic from [...] as Marfan syndrome. The patient qualifies for [facility] risk classification II-III which confers an [...] and severity of complications: Recommendations during - PANEL EDGE PAINTER referral for multi-disciplinary care coordination - Baseline [...] would be appropriate for co-managed care with [facility] for ultrasounds and visits every trimester and that she should contact and establish care obstetrical care with [facility] general minister practice once has a positive test. Thank [...] of care as per the fellow's note. eBlle Jose DO Department of Obstetrics and Gynecology Division of Maternal Medicine [facility] documented in this encounter [facility] 06-05-2021 Instructions Charlotte Cárdenas MD - 06/05/2021 11:42 AM EDT ASSESSMENT/PLAN: Status post tonsillectomy Healing well Pathology benign Followup as needed documented in this encounter [facility] 06-05-2021 History of Present illness Narrative [...] as needed documented in this encounter [facility] Evaluation note Diagnosis Postop check- Primary Follow-up examination, following unspecified surgery [facility] Diagnosis Encounter for preconception consultation- Primary Bicuspid aortic valve Congenital insufficiency of aortic valve [facility] Diagnosis Lymphadenopathy- Primary Enlargement of lymph nodes [facility] Diagnosis Lymphadenopathy Enlargement of lymph nodes [facility] Diagnosis Lymphadenopathy Enlargement of lymph nodes documented [facility] Diagnosis Thyroid nodule Nontoxic uninodular goiter [facility] Diagnosis Thyroid nodule- Primary Nontoxic uninodular goiter [facility] Diagnosis 28 weeks gestation of Third trimester state, incidental documented in this encounter [facility] Healthcare[facility] note* Diagnosis 30 weeks gestation of Third trimester state, incidental Aortic stenosis of mother during Hypothyroid in , antepartum (CMS/HCC) Vaginal discharge during in second trimester Encounter for screening for cervical length documented in this encounter [facility] HealthcareEvaluation note* Diagnosis Ascending aorta dilation (CMS-HCC)- Primary Thoracic aneurysm without mention of rupture 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 [facility] Diagnosis Third trimester state, incidental 32 weeks gestation of documented in this encounter [facility] HealthcareHospital Discharge instructions* Attachments The following attachments cannot be sent through Care Everywhere. * [facility] AMB SMOKING CESSATION LINKS [facility] Reason for Referral Status Reason Specialty Diagnoses / Procedures Referred By Contact Referred To Contact New Request Diagnoses Other fatigue Lymphadenopathy of head and neck Procedures US NECK SOFT TISSUE Darryn Dow, BOTTOM PRECIPITATOR OPERATOR [address] [address] Specialty Diagnoses / Procedures Referred By Contac t Referred To Contact Diagnoses Lymphadenopathy Procedures XR FLUORO MODIFIED BARIUM SWALLOW-ENT ONLY CHG RADIOLOGIC EXAM ESOPHAGUS SINGLE CONTRAST STUDY Regan Neves, TRAVEL ATTENDANTS-BOTTOM PRECIPITATOR OPERATOR [address] [place] [address] Referral ID Status Reason Start Date Expiration Date V isits Requested Visits Authorized [id number] Auth Not Needed 12/24/2022 01/18/2024 1 1 Specialty Diagnoses / Procedures Referred By Contac t Referred To Contact Diagnoses Lymphadenopathy EdinsonRegan veronica, TRAVEL ATTENDANTS-BOTTOM PRECIPITATOR OPERATOR [address] [place] [address] Referral ID Status Reason Start Date Expiration Date V isits Requested Visits Authorized [id number] Pending Review 12/24/2022 01/18/2024 1 1 Specialty Diagnoses / Procedures Referred By Contac t Referred To Contact Diagnoses Lymphadenopathy Procedures CT NECK WITH CONTRAST AZ CT NECK TISSUE CONTRAST EdinsonRegan veronica, TRAVEL ATTENDANTS-BOTTOM PRECIPITATOR OPERATOR [address] [place] [address] Referral ID Status Reason Start Date Expiration Date Visits Re quested Visits Authorized [id number] Closed 12/24/2022 01/18/2024 1 1 Referral ID Status Reason Start Date Expiration Date Visits Re quested Visits Authorized [id number] Closed 12/24/2022 01/18/2024 1 1 Specialty Diagnoses / Procedures Referred By Contac t Referred To Contact Diagnoses Thyroid nodule Procedures US THYROID AZ US,HEAD/NECK TISSUES,REAL TIME Herve Jimenez MD [address] [place] [address] [facility] [address] [place] [address] Referral ID Status Reason Start Date Expiration Date V isits Requested Visits Authorized [id number] New Request 05/27/2023 06/20/2024 1 1 Specialty Diagnoses / Procedures Referred By Contac t Referred To Contact Diagnoses Thyroid nodule Procedures US [facility] Andrse Torres MD [address] [place] [address] [address] [place] [address] Referral ID Status Reason Start Date Expiration Date V isits Requested Visits Authorized [id number] New Request 09/22/2023 10/16/2024 1 1 Assessments [...] section and content) DATE CREATED AUTHOR 08/07/2020 [facility] DATE CREATED AUTHOR AUTHOR'S ORGANIZ ATION 05/28/2022 [facility] DATE CREATED AUTHOR AUTHOR'S ORGANIZ ATION 05/24/2023 [facility] DATE CREATED AUTHOR AUTHOR'S ORGANIZ ATION 09/26/2023 [facility] DATE CREATED AUTHOR AUTHOR'S ORGANIZ ATION 12/17/2023 [facility] DATE CREATED AUTHOR AUTHOR'S ORGANIZ ATION 01/15/2024 [facility] DATE CREATED AUTHOR AUTHOR'S ORGANIZ ATION 01/16/2024 [facility] EPIC DATE CREATED AUTHOR AUTHOR'S ORGANIZ ATION 01/16/2024 [facility] Reason for Visit (unrecogniz ed section and content) Reason Comments Post Op Visit TONSILLECTOMY - Bila teral with Charlotte Cárdenas MD on 05/10/2021, pt did have some bleeding post op, doing well now, some tenderness to surgical site. Specialty Diagnoses / Procedures Referred By Emanuel t Referred To Contact Diagnoses Bicuspid aortic valve Congenital heart disease Procedures MRI ANGIO CHEST WITH AND WITHOUT CONTRAST MRA W/O FOL W/CONT, CHEST Chepe Peraza MD [address] [place] [address] [facility] [address] [place] [address] Referral ID Status Reason Start Date Expiration Date V isits Requested Visits Authorized [id number] Auth Not Needed 05/29/2022 06/23/2023 1 1 [...] Armas MD [address] [place] [address] Referral ID Status Reason Start Date Expiration Date Visits Re quested Visits Authorized [id number] Closed 12/24/2022 01/18/2024 1 1 Specialty Diagnoses / Procedures Referred By Contac t Referred To Contact Diagnoses Lymphadenopathy Procedures CT NECK WITH CONTRAST AZ CT NECK TISSUE CONTRAST Regan Neves, TRAVEL ATTENDANTS-BOTTOM PRECIPITATOR OPERATOR [address] [place] [address] Referral ID Status Reason Start Date Expiration Date Visits Re quested Visits Authorized [id number] Closed 12/24/2022 01/18/2024 1 1 Specialty Diagnoses / Procedures Referred By Contac t Referred To Contact Diagnoses Lymphadenopathy Procedures XR FLUORO MODIFIED BARIUM SWALLOW-ENT ONLY CHG RADIOLOGIC EXAM ESOPHAGUS SINGLE CONTRAST STUDY Regan Neves, TRAVEL ATTENDANTS-BOTTOM PRECIPITATOR OPERATOR [address] [place] [address] Referral ID Status Reason Start Date Expiration Date Visits Re quested Visits Authorized [id number] Closed 12/24/2022 01/18/2024 1 1 Specialty Diagnoses / Procedures Referred By Contac t Referred To Contact Diagnoses Thyroid nodule Procedures US THYROID AZ US,HEAD/NECK TISSUES,REAL TIME Herve Jimenez MD [address] [place] [address] [facility] [address] [place] [address] Referral ID Status Reason Start Date Expiration Date V isits Requested Visits Authorized [id number] New Request 05/27/2023 06/20/2024 1 1 Reason Comments Thyroid Nodule Specialty Diagnoses / Procedures Referred By Emanuel t Referred To Contact Endocrinology, Diabetes & Metabolism Diagnoses Thyroid nodule Regan Neves, TRAVEL ATTENDANTS-BOTTOM PRECIPITATOR OPERATOR [address] [place] [address] Referral ID Status Reason Start Date Expiration Date V isits Requested Visits Authorized [id number] Pending Review 06/04/2023 06/28/2024 1 1 Reason Comments Routine Visit Reason Comments aortic root dilation aortic stenosis Care Teams (unrecognized sec tion and content) Colloid Mill Operator Relationship Specialty Start Date End Date Herve Jimenez MD [address] [place] [address] PCP - General Family Medicine 09/23/19 Chepe Peraza MD [address] [place] [address] Contracts Administrator Pediatrics 04/30/21 Colloid Mill Operator Relationship Specialty Start Date End Date Herve Jimenez MD [address] [place] [address] PCP - General Family Medicine 09/23/19 Chepe Peraza MD [address] [place] [address] Contracts Administrator Pediatrics 04/30/21 Colloid Mill Operator Relationship Specialty Start Date End Date Herve Jimenez MD [address] [place] [address] PCP - General Family Medicine 09/23/19 Chepe Peraza MD [address] [place] [address] Contracts Administrator Pediatrics 04/30/21 Colloid Mill Operator Relationship Specialty Start Date End Date Herve Jimenez MD [address] [place] [address] PCP - General Family Medicine 09/23/19 Chepe Peraza MD [address] [place] [address] Contracts Administrator Pediatrics 04/30/21 Colloid Mill Operator Relationship Specialty Start Date End Date Herve Jimenez MD [address] [place] [address] PCP - General Family Medicine 09/23/19 Chepe Peraza MD [address] [place] [address] Contracts Administrator Pediatrics 04/30/21 Colloid Mill Operator Relationship Specialty Start Date End Date Herve Jimenez MD [address] [place] [address] PCP - General Family Medicine 09/23/19 hCepe Peraza MD [address] [place] [address] Contracts Administrator Pediatrics 04/30/21 Colloid Mill Operator Relationship Specialty Start Date End Date Herve Jimenez MD [address] [place] [address] PCP - General Family Medicine 09/23/19 Chepe Peraza MD [address] [place] [address] Contracts Administrator Pediatrics 04/30/21 Colloid Mill Operator Relationship Specialty Start Date End Date Herve Jimenez MD [address] [place] [address] PCP - General Family Medicine 09/23/19 Chepe Peraza MD [address] [place] [address] Contracts Administrator Pediatrics 04/30/21 Colloid Mill Operator Relationship Specialty Start Date End Date Herve Jimenez MD [address] [place] [address] PCP - General Family Medicine 06/29/20 FOR RECORDS PERTAINING TO PATIENTS WHO ARE [...] BE BASED ON THE PRIMARY CLINICAL RECORDS. [facility] [employer] [facility]. provides no warranty or guarantee of the accuracy or completeness of information in this document.
[2024-01-19 10:08] VITALS: BP 112/68; PULSE 77
--- NOTE | 2024-01-19 10:24 | US_ITS ---
[address] [address] Patient Name: ADRY LEVY MRN: [id number] date: 1995 Sex: F Assigned Patient Location: [facility] Current Patient Location: Accession/Order Number: [id number] Exam Date: 01/19/2024 10:30 Report Date: 01/19/2024 12:10 At the request of: RICKY PHAM Procedure: US OB BPP w non-stress EXAMINATION: US OB BPP w non-stress HISTORY: AORTIC STENOSIS OF MOTHER O99.419,I35.0 COMPARISON: No relevant comparison available. TECHNIQUE: Ultrasound biophysical profile was performed in the radiology department. non-reactive stress testing was performed by nursing staff in the birthing center. FINDINGS: BREATHING MOVEMENTS: 2 GROSS BODY MOVEMENTS: 2 TONE: 2 QUALITATIVE AMNIOTIC FLUID VOLUME: 2 PRESENTATION: CEPHALIC HEART RATE: 145.16 bpm AMNIOTIC FLUID VOLUME: 19.1 cm GESTATIONAL AGE: 33 weeks 0 days US/US OB BPP w non-stress IMPRESSION: Total biophysical profile score: 8 Electronically authenticated by: EULOGIO BARCLAY Date: 01/19/2024 12:10
== END 2024-01-19 11:05 | disposition home or self-care (01) ==
LOC: US 07:05 → FBC 09:57
PROVIDERS: Visit Provider Obstetrics & Gynecology
DX: O99.413 Diseases of the circulatory system complicating pregnancy, third trimester (principal); O26.893 Other specified pregnancy related conditions, third trimester; Z36.86 Encounter for antenatal screening for cervical length; I35.0 Nonrheumatic aortic (valve) stenosis; N89.8 Other specified noninflammatory disorders of vagina; Z3A.33 33 weeks gestation of pregnancy
CPT/HCPCS: 76818

== ENCOUNTER 2024-01-26 06:34 | Outpatient (OUT) | payer OTHER, SELFPAY ==
--- OUTSIDE RECORDS SUMMARY | 2024-01-26 06:38 | XMS_ITS | CCD ---
Author Organization [facility] Care Team Providers Care American Indian Studies Professor Name Role Phone Unavailable Unavailable Unavailable Herve Jimenez MD Primary Care Provider Chepe Peraza MD Unavailable [phone] Herve Jimenez MD Primary Care Unavail able Cristian DORADO, Jake Og Attending UnavailHerve Chiang MD Primary Care Unavail able Cristian DORADO, Jake Og Attending Unavailfred Foster MD, Jake Og Attending UnavailHerve Chiang MD Primary Care Unavail able Herve Jimenez MD Primary Care Provider [phone] Chepe Peraza MD Unavailable Herve Jimenez MD [...] [amoxicillin] Drug Allergy 04-14-19 13 Rash, Unknown [facility] Work Phone: (10 sources) Clarithromycin; Translations: [clarithromycin] Drug Allergy 10-07-19 16 Rash [facility] Work Phone: (17 sources) Clindamycin; Translations: [clindamycin] Drug Allergy 03-16-19 18 [facility] Work Phone: (20 sources) Doxycycline; Translations: [doxycycline] Drug Allergy 04-14-19 13 Unknown [facility] Work Phone: (16 sources) Clarithromycin Propensity to adverse reactions to drug 10-07-19 16 Rash, Unknown [facility] Work Phone: (13 sources) Erythromycin; Translations: [ERYTHROMYCIN] Drug Allergy 04-14-19 13 [facility] (12 sources) Spironolactone; Translations: [SPIRONOLACTONE] Drug Allergy 05-27-19 24 Dizziness [facility] (10 sources) Clindamycin/Lincom ycin Drug Intolerance 07-13-19 15 Unknown [facility] (1 source) Spironolactone Drug Allergy 09-09-19 24 [facility] (3 sources) Lincomycin; Translations: [LINCOMYCIN] Drug Allergy 07-13-19 15 [facility] Medications Current Medications Medication Drug Class(es) [...] 0 05/22/2021 Active lidocaine viscous-Alum & Mag Nkjctnvyd-Zmontj-rbyfshotenREZJT oral mouthwash (8 sources) Start: 05-22-2021 take 15 mL by mouth every six hours as needed lidocaine viscous-Alum & Mag Cqkvwpzpj-Qapntn-ifoqxagvarKSWVL oral mouthwash Swish and swallow 15mL by mouth every 6 hours as needed. 240 mL 05/22/2021 Active Start: 05-22-2021 take 15 mL by mouth every six hours as needed lidocaine viscous-Alum & Mag Futdqvwyw-Wqobxr-ksduhmhefoFNVHT oral mouthwash Swish and swallow 15mL by mouth every 6 hours as needed. 240 mL 0 05/22/2021 Active nystatin [id number] unt/ml oral suspension (8 sources) Polyene Antifungal Start: 05-16-2021 take 10 mL by mouth four times daily nystatin 828306 UNIT/ML oral suspension Swish and swallow 10 mL 4 times daily. 280 mL 05/16/2021 Active [place]-3 Fatty Acids (OMEGA 3 PO) (10 sources) [place]-3 Fatty Ac ids (OMEGA 3 PO) Take [...] UA Negative Negative - 4(70) +++ mg/dL [facility] Blood, UA Negative Negative - 50 Sina/mcL [facility] Clarity, UA Clear [facility] re Color, UA Roxanne [facility] Glucose, UA Negative Negative - 2000(110) ++++ mg/dL [facility] Interpretation and review of laboratory results Abnormal [facility] Ketones, UA Positive Negative - 160(16) ++++ mg/dL [facility] Comment on above: 15 Leukocytes, UA Trace Negative - 500+++ Amos/mcL [facility] Nitrite, UA Negative Negative - Positive [facility] pH, UA 7 5 - 9 [facility], UA Positive Negative - 2000(20) ++++ mg/dL [facility] Comment on above: 30 Spec Grav, UA 1.02 1 - 1.03 [facility] Urobilinogen, UA 0.2 0.2 - 12 mg/dL [facility] 37on 01-13-2024 37 Echo results: [...] not dizzy. ECHO at 36 weeks Normal [facility] Office Visiton 01-13-2024 Follow-up visit [id number] Lisa Cardenas 1995 F Date Provider Department Center 01/13/2024 HayderCHEPE HICKS RPW PED Simon Pedanabel No family history on file Level of Service:38254 [place] OFFICE/OUTPATIENT ESTABLISHED MOD MDM 30 MIN Reason for Visit and Comments: Aortic Dilatation [Other] - 32 wks Normal [facility] Orders Onlyon 01-13-2024 Orders Only [id number] Lisa Cardenas 1995 F Date Provider Department [place] 01/13/2024 [id number] MONTALVO RPW PED Simon Rao No family history on file Normal [facility] Urinalysis macro (dipstick) panel (U)on 12-30-2023 Bilirubin, UA Negative Negative - 4(70) +++ mg/dL [facility] Blood, UA Negative Negative - 50 Sina/mcL [facility] Healthcare Clarity, UA Clear [facility] Color, UA Yellow [facility] Glucose, UA Negative Negative - 1999(110) ++++ mg/dL [facility] Interpretation and review of laboratory results Normal [facility] Ketones, UA Negative Negative - 160(16) ++++ mg/dL [facility] Leukocytes, UA Negative Negative - 500+++ Amos/mcL [facility] Nitrite, UA Negative Negative - Positive [facility] pH, UA 6.5 5 - 9 [facility] Protein, UA Negative Negative - 1999(20) ++++ mg/dL [facility] Spec Grav, UA 1.015 1 - 1.03 [facility] care Urobilinogen, UA 0.2 0.2 - 12 mg/dL [facility] TBH UA (CLEAN/CATCH) 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 YELLOW YELLOW [facility] GLUCOSE URINE UA Negative NEGATIVE mg/dL [facility] Interpretation and review of laboratory results Abnormal [facility] Ketones Ql (U) TRACE Abnormal NEGATIVE mg/dL [facility] Leukocyte esterase Test strip Ql (U) Negative NEGATIVE [facility] NITRITE URINE Negative NEGATIVE [facility] care pH (U) 7.0 [pH] 5.0 - 9.0 [facility] PROTEIN URINE Negative NEG/TRACE mg/dL [facility] SPECIFIC GRAVITY URINE <=1.005 Abnormal 1.005 - 1.025 [facility] URINE MICROSCOPIC INDICATED NO [facility] UROBILINOGEN URINE 0.2 EU/dL 0.2 - 1.0 EU/dL [facility] Urinalysis macro (dipstick) panel (U)on 12-17-2023 Bilirubin, UA Negative Negative - 4(70) +++ mg/dL [facility] Blood, UA Negative Negative - 50 Sina/mcL [facility] Clarity, UA Clear [facility] re Color, UA Yellow [facility] e Glucose, UA Negative Negative - 1999(110) ++++ mg/dL [facility] Interpretation and review of laboratory results Abnormal [facility] Ketones, UA Negative Negative - 160(16) ++++ mg/dL [facility] Leukocytes, UA Trace Negative - 500+++ Amos/mcL [facility] Nitrite, UA Negative Negative - Positive [facility] pH, UA 7.5 5 - 9 [facility] e Protein, UA Negative Negative - 1999(20) ++++ mg/dL [facility] Spec Grav, UA 1.020 1 - 1.03 [facility] Urobilinogen, UA 0.2 0.2 - 12 mg/dL [facility] CBC with Diffon 12-09-2023 Abs. Basophil 0.09 k/uL Normal 0.00-0.20 [facility] Comment on above: Performed By: #### C P, CDP #### [facility] [address] [place] [address] [place] [address] Maintenance Job Titles: Clark Mata MD Abs.Imm.Granulocyte 0.17 k/uL Normal 0.00-0.30 [facility] Comment on above: Performed By: #### C P, CDP #### [facility] [address] [place] [address] Maintenance Job Titles: Clark Mata MD Abs.Neutrophil (Seg) 5.63 k/uL Normal 1.50-8.10 [facility] Comment on above: Performed By: #### C P, CDP #### [address] [place] [id number] Maintenance Job Titles: Clark Mata MD Basophils/100 WBC (Bld) 1 % Normal 0-2 [facility] Comment on above: Performed By: #### C P, CDP #### [address] [place] [id number] Maintenance Job Titles: Clark Mata MD Eosinophils (Bld) [#/Vol] 0.13 10*3/uL Normal 0.00-0.44 [facility] Comment on above: Performed By: #### C P, CDP #### [address] [place] [id number] Maintenance Job Titles: Clark Mata MD Eosinophils/100 WBC (Bld) 2 % Normal 1-4 [facility] Comment on above: Performed By: #### C P, CDP #### [address] [place] [address] Maintenance Job Titles: Clark Mata MD Erythrocyte distribution width (RBC) [Ratio] 12.7 % Normal 11.8-14.4 [facility] Comment on above: Performed By: #### C P, CDP #### [address] [place] [id number] Maintenance Job Titles: Clark Mata MD Hematocrit (Bld) [Volume fraction] 36.4 % Normal 36.3-47.1 [facility] Comment on above: Performed By: #### C P, CDP #### [address] [place] [address] Maintenance Job Titles: Clark Mata MD Hemoglobin (Bld) [Mass/Vol] 12.6 g/dL Normal 11.9-15.1 [facility] Comment on above: Performed By: #### C P, CDP #### [facility] [address] [place] [address] Maintenance Job Titles: Clark Mata MD Immature granulocytes/100 WBC (Bld) 2 % High 0 [facility] Comment on above: Performed By: #### C P, CDP #### [facility] [address] [place], [facility] Maintenance Job Titles: Clark Mata MD Lymphocytes (Bld) [#/Vol] 1.80 10*3/uL Normal 1.10-3.70 [facility] Comment on above: Performed By: #### C P, CDP #### [address] [place], [facility] Maintenance Job Titles: Clark Mata MD Lymphocytes/100 WBC (Bld) 21 % Low 24-43 [facility] Comment on above: Performed By: #### C P, CDP #### [address] [place], [facility] Maintenance Job Titles: Clark Mata MD MCH (RBC) [Entitic mass] 30.4 pg Normal 25.2-33.5 [facility] Comment on above: Performed By: #### C P, CDP #### [address] [place], [place] [address] Maintenance Job Titles: Clark Mata MD MCHC (RBC) [Mass/Vol] 34.6 g/dL Normal 28.4-34.8 [facility] Comment on above: Performed By: #### C P, CDP #### [address] [place] [address] Maintenance Job Titles: Clark Mata MD MCV (RBC) [Entitic vol] 87.9 fL Normal 82.6-102.9 [facility] Comment on above: Performed By: #### C P, CDP #### [facility] [address] [place], [place] 8777783 Maintenance Job Titles: Clark Mata MD Monocytes (Bld) [#/Vol] 0.61 10*3/uL Normal 0.10-1.20 [facility] Comment on above: Performed By: #### C P, CDP #### [facility] [address] [place], [place] [id number] Maintenance Job Titles: Clark Mata MD Monocytes/100 WBC (Bld) 7 % Normal 3-12 [facility] Comment on above: Performed By: #### C P, CDP #### [facility] [address] [place], [place] [address] Maintenance Job Titles: Clark Mata MD Neutrophil (Seg) 67 % High 36-65 [facility] Comment on above: Performed By: #### C P, CDP #### [address] [place], [facility] Maintenance Job Titles: Clark Mata MD NRBC Automated 0.0 per 100 WBC Normal 0.0 [facility] Comment on above: Performed By: #### C P, CDP #### [address] [place], [facility] Maintenance Job Titles: Clark Mata MD Platelet mean volume (Bld) [Entitic vol] 10.7 fL Normal 8.1-13.5 [facility] Comment on above: Performed By: #### C P, CDP #### [facility] [address] [place], [facility] Maintenance Job Titles: Clark Mata MD Platelets (Bld) [#/Vol] 162 10*3/uL Normal 138-453 [facility] Comment on above: Performed By: #### C P, CDP #### [facility] [address] [place], [place] [id number] Maintenance Job Titles: Clark Mata MD RBC (Bld) [#/Vol] 4.14 10*6/uL Normal 3.95-5.11 [facility] Comment on above: Performed By: #### C P, CDP #### [facility] [address] [place], [place] [id number] Maintenance Job Titles: Clark Mata MD WBC (Bld) [#/Vol] 8.4 10*3/uL Normal 3.5-11.3 [facility] Comment on above: Performed By: #### C P, CDP #### [address] [place], [place] 8014383 Maintenance Job Titles: Clark Mata MD Comp Metabolic Profon 2023 Albumin [Mass/Vol] 3.7 g/dL Normal 3.5-5.2 [facility] Comment on above: Performed By: #### C P, CDP #### [address] [place], [place] 6005483 Maintenance Job Titles: Clark Mata MD Albumin/Glob Ratio 1.4 Normal 1.0-2.5 [facility] Comment on above: Performed By: #### C P, CDP #### [address] [place] [address] Maintenance Job Titles: Clark Mata MD Alkaline Phos 47 U/L Normal 35-104 [facility] Comment on above: Performed By: #### C P, CDP #### [facility] [address] [place] [address] [place] [address] Maintenance Job Titles: Clark Mata MD ALT [Catalytic activity/Vol] 13 U/L Normal 10-35 [facility] Comment on above: Performed By: #### C P, CDP #### [address] [place], [place] 7668583 Maintenance Job Titles: Clark Mata MD Anion gap [Moles/Vol] 9 mmol/L Normal 9-16 [facility] Comment on above: Performed By: #### C P, CDP #### [facility] [address] [place], [place] 2955583 Maintenance Job Titles: Clark Mata MD AST [Catalytic activity/Vol] 16 U/L Normal 10-35 [facility] Comment on above: Performed By: #### C P, CDP #### [facility] [address] [place], [place] 2196283 Maintenance Job Titles: Clark Mata MD Bilirubin [Mass/Vol] 0.3 mg/dL Normal 0.00-1.20 [facility] Comment on above: Performed By: #### C P, CDP #### [facility] [address] [place], [place] 1187583 Maintenance Job Titles: Clark Mata MD BUN/CRE Ratio 17 Normal 9-20 [facility] Comment on above: Performed By: #### C P, CDP #### [facility] [address] [place], [place] 4448083 Maintenance Job Titles: Clark Mata MD Calcium [Mass/Vol] 8.7 mg/dL Normal 8.6-10.4 [facility] Comment on above: Performed By: #### C P, CDP #### [facility] [address] [place], [place] 1109483 Maintenance Job Titles: Clark Mata MD Chloride [Moles/Vol] 104 mmol/L Normal 98-107 [facility] Comment on above: Performed By: #### C P, CDP #### [facility] [address] [place], [place] 3846383 Maintenance Job Titles: Clark Mata MD CO2 [Moles/Vol] 21 mmol/L Normal 20-31 [facility] Comment on above: Performed By: #### C P, CDP #### [facility] [address] [place], [place] 7718583 Maintenance Job Titles: Clark Mata MD Creatinine [Mass/Vol] 0.6 mg/dL Normal 0.50-0.90 [facility] Comment on above: Performed By: #### C P, CDP #### [facility] [address] [place] [address] Maintenance Job Titles: Clark Mata MD GFR/1.73 sq M.predicted among non-blacks MDRD (S/P/Bld) [Vol rate/Area] mL/min/{1.73_m2} Normal >60 [facility] Comment on above: Result Comment: These results [...] Performed By: #### C P, CDP #### [facility] [address] [place] [address] Maintenance Job Titles: Clark Mata MD Glucose [Mass/Vol] 75 mg/dL Normal 74-99 [facility] Comment on above: Performed By: #### C P, CDP #### [address] [place] [address] Maintenance Job Titles: Clark Mata MD Potassium [Moles/Vol] 4.0 mmol/L Normal 3.7-5.3 [facility] Comment on above: Performed By: #### C P, CDP #### [facility] [address] [place] [address] Maintenance Job Titles: Clark Mata MD Protein [Mass/Vol] 6.2 g/dL Low 6.6-8.7 [facility] Comment on above: Performed By: #### C P, CDP #### [facility] [address] [place] [address] Maintenance Job Titles: Clark Mata MD Sodium [Moles/Vol] 134 mmol/L Low 136-145 [facility] Comment on above: Performed By: #### C P, CDP #### [facility] [address] [place], [place] [phone] Maintenance Job Titles: Clark Mata MD Urea nitrogen [Mass/Vol] 10 mg/dL Normal 6-20 [facility] Comment on above: Performed By: #### C P, CDP #### [facility] [address] [place], [place] 0003083 Maintenance Job Titles: Clark Mata MD Lipaseon Lipase [Catalytic activity/Vol] 41 U/L Normal 13-60 [facility] Comment on above: Performed By: #### L IP #### [facility] [address] [place], [place] 9249783 Maintenance Job Titles: Clark Mata MD UA w/Reflex Cultureon 6 Bilirubin, SemiQt,Ur Negative Normal NEG [facility] Comment on above: Performed By: #### U AX, UMICAO #### [facility] [address] [place], [place] [phone] Maintenance Job Titles: Clark Mata MD Blood, Urine Negative Normal NEG [facility] Comment on above: Performed By: #### U AX, UMICAO #### [facility] [address] [place], [place] 2077183 Maintenance Job Titles: Clark Mata MD Clarity (U) Clear Normal CLEAR [facility] Comment on above: Performed By: #### U AX, UMICAO #### [facility] [address] [place], [place] 2714183 Maintenance Job Titles: Clark Mata MD Color (U) Yellow Normal YEL [facility] Comment on above: Performed By: #### U AX, UMICAO #### [facility] [address] [place], [place] 8788283 Maintenance Job Titles: Clark Mata MD Glucose Ql (U) Negative Normal NEG [facility] in Hospital Comment on above: Performed By: #### U AX, UMICAO #### [facility] [address] [place] [address] [place], [place] 8419283 Maintenance Job Titles: Clark Mata MD Ketones Ql (U) Negative Normal NEG [facility] Comment on above: Performed By: #### U AX, UMICAO #### [facility] [address] [place] [address] [place], [place] 7394283 Maintenance Job Titles: Clark Mata MD Leukocyte esterase Test strip Ql (U) Negative Normal NEG [facility] Comment on above: Performed By: #### U AX, UMICAO #### [address] [place], [place] [phone] Maintenance Job Titles: Clark Mata MD Nitrite,Ur Negative Normal NEG [facility] Comment on above: Performed By: #### U AX, UMICAO #### [facility] [address] [place] [address] [place], [place] 8936683 Maintenance Job Titles: Clark Mata MD PH,Ur 7.0 Normal 5.0-9.0 [facility] Comment on above: Performed By: #### U AX, UMICAO #### [facility] [address] [place] [address] [place], [place] 2785483 Maintenance Job Titles: Clark Mata MD Protein Ql (U) Negative Normal NEG [facility] in Hospital Comment on above: Performed By: #### U AX, UMICAO #### [facility] [address] [place] [address] [place], [place] 5064883 Maintenance Job Titles: Clrak Mata MD Spec. [place],Ur 1.015 Normal 1.010-1.020 [facility] Comment on above: Performed By: #### U AX, UMICAO #### [facility] [address] [place] [address] [place] [address] Maintenance Job Titles: Clark Mata MD Urobilinogen,Ur Normal Normal 0.0-1.0 [facility] Comment on above: Performed By: #### ARNOLD MARTINO #### [facility] [address] [place] [address] Maintenance Job Titles: Clark Mata MD US GALLBLADDER RUQon 024 [...] Sabi Leung MD 12/09/23 Final result Normal [facility] Urinalysis,Microon 4 Epithelial cells LM Ql (Urine sed) 0 TO 2 Normal 0-25 [facility] Comment on above: Performed By: #### ARNOLD MARTINO #### [facility] [address] [place], [place] 3300483 Maintenance Job Titles: Clark Mata MD Urine RBC's None Normal 0-2 [facility] Comment on above: Performed By: #### ARNOLD MARTINO #### [facility] [address] [place], [place] 7536783 Maintenance Job Titles: Clark Mata MD Urine WBC's 0 TO 2 Normal 0-5 [facility] Comment on above: Performed By: #### U AX, ARNOLD #### [facility] [address] [place] [address] Maintenance Job Titles: Clark Mata MD 12-03-2023 36 Echo order faxed over [facility] 12-02-2023 36 Called and left detailed message for patient [facility] 36 This will be fine Normal [facility] 11-24-2023 36 Patient called stating that they [facility] does not have any appointment for an echo until 32 week. She wants to know if it is okay for her to get it at 32 weeks or what else do you suggest. Please advise [facility] 11-23-2023 36 I called the [facility] and I left a message on her voicemail that I would put an order in but she needs to call the [facility] scheduling line and get it scheduled in our office will fax the order to them. I asked her to schedule it for 30 weeks gestation. Please make sure that the order is faxed to [facility] scheduling. [facility] Orders Onlyon 11-23-2023 Orders Only [id number] Lisa Cardenas 1995 F Date Provider Department Center 11/23/2023 CHEPE GOODSON No family history on file [facility] 3611-21-2023 36 Pt called in stating [...] next apt with Dr. Peraza on 01/12. [facility] Telephoneon 11-21-2023 Telephone [id number] Lisa Cardenas 1995 F Date Provider Department Center 11/21/2023 CHEPE GOODSON No family history on file Reason for Visit and Comments: ECHO [Other] [facility] Office Visiton 10-07-2023 Follow-up visit [id number] Lisa Cardenas 1995 F Date Provider Department Center 10/07/2023 CHEPE GOODSON CLARISSE Rao No family history on file Level of Service:36256 [place] OFFICE/OUTPATIENT ESTABLISHED MOD MDM 30 MIN Reason for Visit and Comments: Heart Problem [54] - Transfer from [facility] - 18 wks [facility] CHG US SOFT TISSUE HEAD & NE CK REAL TIME IMGE DOCMon 09-23-2023 Radiology Study observation (narrative) [facility] CHG US SOFT TISSUE HEAD & NE CK REAL [facility]23 Andres Torres MD 09/23/2023 6:28 PM Ms. Cardenas was seen and examined with Dr. Hall, I independently verified the findings on US and agree with the documented report - thyroid ultrasound report appears in the notes tab. [facility] US Unspecified body regionOr dered By: Unassigned Pacs on 09-22-2023 [facility] Work Phone: US Unspecified body regionon 09-22-2023 Radiology Study observation (narrative) [facility] 36on 07-04-2023 36 Created in error [facility] 36 Scheduled an appointment October 06 at 8:30am. [facility] 36 If this patient schedules a [...] her and left her message as well. [facility] 36on 07-03-2023 36 Patient is newly (4wks) and is currently scheduled in August for her yearly visit.. She is asking if she needs to reschedule to do the 20-24 wk gestational testing. PH: [phone] Normal [facility] Telephoneon 07-03-2023 Telephone [id number] Lisa Peña 1995 F Date Provider Department Center 07/03/2023 [id number], RAMIRO RPW PED [employer] No family history on file Normal [facility] VZ Immunityon 06-23-2023 VZ Immunity 3.84 Normal >1.09 [facility] Comment on above: Result Comment: Interpretation: IMMUNE Reference Range: <0.91 Not Immune 0.91-1.09 Equivocal >1.09 Immune Performed By: #### V ZI #### [facility] [employer] [address] [place] [id number] Maintenance Job Titles: Bear Mejias MD US THYROIDon 06-03-2023 US [...] Echogenicity: Hyperechoic or isoechoic (1 point) Shape: Gpals-bdrj-rxux (0 points) Margin: Smooth (0 points) Echogenic [...] using ACR TI-RADS. (JACR July 2016) Normal [facility] FREE T4on 05-23-2023 Free T4 [Mass/Vol] 1.0 ng/dL Normal 0.9-1.8 [facility] Comment on above: Order Comment: Locat ion: Performed By: #### L [id number], [id number] #### ANIL PRESSLEY ([id number]) [facility] ([facility]) [address], [address] [place] [address] TSHon 05-23-2023 TSH 2.599 MIU/mL Normal 0.550-4.780 [facility] Comment on above: Order Comment: Locat ion: Performed By: #### L 127, [id number] #### ANIL PRESSLEY ([id number]) [facility] ([facility]) [address], [address] [place] [address] RF videography Hypopharynx a nd Esophagus Views [...] report for further details and dietary recommendations. [facility] Radiology Study observation (narrative) [facility] RF videography Hypopharynx a nd Esophagus Views W liquid and paste contrast PO during swallowingOrdered By: Gisele Hardy on 01-09-2023 [facility] Work Phone: XR FLUORO MODIFIED BARIUM [...] for further details and dietary recommendations. Normal [facility] CT NECK WITH CONTRASTon 10-1 [...] error, please notify the sender immediately at [phone] and permanently delete the original report and destroy any copies or printouts. Normal [facility] Audiovisual Technician Cytology Reporton 2022 Audiovisual Technician Cytology Report Clinical Information Specimen Collection Date: [...] smears in the future. 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 Patient reports some pain [...] and the last time she saw her laborer salvage thought there might have been some dilation [...] will send patient for preconceptual counseling with [facility] because of her cardiac abnormality Follow-up [...] intractable, w/o (more content not included)... Normal [facility] Culture, Urineon 08-04-2020 RPT Microbiology results Abnormal [facility] Comment on above: Order Comment: Items in this order include: Culture, Urine Testing Performed By: [facility] [address] [place] [address]. [place] [address] Dr. Anil Pressley, Maintenance Job Titles Result Comment: [place] Count: 10,000-25,000 CFU/ML Final Result: Escherichia [...] R Performed By: #### C 734 #### [facility] [address] [place] [address] Culture, Urineon 03-14-2020 RPT Microbiology results Abnormal [facility] Comment on above: Order Comment: Items in this order include: Culture, Urine Testing Performed By: [facility] [address] [place] [address]. [place] [address] Dr. Shaunna Cummins, Maintenance Job Titles Result Comment: [place] Count: >100,000 CFU/ML Final Result: Escherichia [...] R Performed By: #### C 734 #### [facility] [address] [place] [address] Culture, Urineon 12-14-2019 RPT Microbiology results Abnormal [facility] Comment on above: Order Comment: Items in this order include: Culture, Urine Testing Performed By: [facility] Primary [facility] [address] [place] [address] Dr. Shaunna Cummins, Maintenance Job Titles Result Comment: [place] Count: 50,000-75,000 CFU/ML Final Result: Escherichia [...] R Performed By: #### C 734 #### [facility] [address] [place] [address] Vital Signs Date Time Vital Sign Value Performing Clinician Facility 01-14-2024 10:57-0500 Body mass index (BMI) [Ratio] 28.15 kg/m2 Ella SQUIRES Work Phone: [facility] 01-14-2024 10:57-0500 Body weight 74.39 kg Ella SQUIRES Work Phone: [facility] 01-14-2024 10:57-0500 Diastolic blood pressure 64 mm[Hg] Ella SQUIRES Work Phone: [facility] 01-14-2024 10:57-0500 Systolic blood pressure 102 mm[Hg] Ella SQUIRES Work Phone: [facility] 01-13-2024 13:51-0500 Body height 162.6 cm Duarte Bernard MD Work Phone: [facility] 01-13-2024 13:51-0500 Body mass index (BMI) [Ratio] 28.12 kg/m2 Duarte Bernard MD Work Phone: [facility] 01-13-2024 13:51-0500 Body weight 74.3 kg Duarte Bernard MD Work Phone: [facility] 01-13-2024 13:51-0500 Diastolic blood pressure 75 mm[Hg] Duarte Bernard MD Work Phone: [facility] 01-13-2024 13:51-0500 Heart rate 79 /min Duarte Bernard MD Work Phone: [facility] 01-13-2024 13:51-0500 Systolic blood pressure 109 mm[Hg] Duarte Bernard MD Work Phone: [facility] 12-30-2023 10:58-0400 Body mass index (BMI) [Ratio] 28.12 kg/m2 Sammy Stu DO Work Phone: [facility] 12-30-2023 10:58-0400 Body weight 74.3 kg Sammy Stu DO Work Phone: [facility] 12-30-2023 10:58-0400 Diastolic blood pressure 64 mm[Hg] Sammy Stu DO Work Phone: [facility] 12-30-2023 10:58-0400 Systolic blood pressure 100 mm[Hg] Sammy Stu DO Work Phone: [facility] 12-17-2023 10:27-0400 Body mass index (BMI) [Ratio] 27.6 kg/m2 Ella SQUIRES Work Phone: [facility] 12-17-2023 10:27-0400 Body weight 72.94 kg Ella Wilkinsey PA Work Phone: [facility] 12-17-2023 10:27-0400 Diastolic blood pressure 64 mm[Hg] Ella Nicole PA Work Phone: [facility] 12-17-2023 10:27-0400 Systolic blood pressure 100 mm[Hg] Ella Wilkinsey PA Work Phone: [facility] 09-22-2023 13:37-0400 Body height 162.6 cm Latrice Hall MD Work Phone: [facility] 09-22-2023 13:37-0400 Body mass index (BMI) [Ratio] 25.4 kg/m2 Latrice Hall MD Work Phone: [facility] 09-22-2023 13:37-0400 Body temperature 97.3 [degF] Latrice Hall MD Work Phone: [facility] 09-22-2023 13:37-0400 Body weight 67.13 kg Latrice Hall MD Work Phone: [facility] 09-22-2023 13:37-0400 Diastolic blood pressure 62 mm[Hg] Latrice Hall MD Work Phone: [facility] 09-22-2023 13:37-0400 Systolic blood pressure 114 mm[Hg] Latrice Hall MD Work Phone: [facility] 12-24-2022 16:30-0400 Body height 162.6 cm Regan LATHAM Work Phone: [facility] 12-24-2022 16:30-0400 Body mass index (BMI) [Ratio] 23.17 kg/m2 Regan Edinson STONE DRESSER-LENS EXAMINER Work Phone: [facility] 12-24-2022 16:30-0400 Body weight 61.24 kg Regan Neves STONE DRESSER-LENS EXAMINER Work Phone: [facility] 12-24-2022 16:30-0400 Diastolic blood pressure 68 mm[Hg] Regan Neves STONE DRESSER-LENS EXAMINER Work Phone: [facility] 12-24-2022 16:30-0400 Heart rate 71 /min Reganemperatriz Neves STONE DRESSER-LENS EXAMINER Work Phone: [facility] 12-24-2022 16:30-0400 Systolic blood pressure 108 mm[Hg] Regan Neves STONE DRESSER-LENS EXAMINER Work Phone: [facility] 12-24-2022 11:37-0400 Body mass index (BMI) [Ratio] 23.22 kg/m2 Emile Armas MD Work Phone: [facility] 12-24-2022 11:37-0400 Body temperature 98.2 [degF] Emile Armas MD Work Phone: [facility] 12-24-2022 11:37-0400 Body weight 61.37 kg Emile Armas MD Work Phone: [facility] 12-24-2022 11:37-0400 Diastolic blood pressure 78 mm[Hg] Emile Armas MD Work Phone: [facility] 12-24-2022 11:37-0400 Heart rate 73 /min Emile Armas MD Work Phone: [facility] 12-24-2022 11:37-0400 Respiratory rate 16 /min Emile Armas MD Work Phone: [facility] 12-24-2022 11:37-0400 SaO2% (BldA) [Mass fraction] 99 % Emile Armas MD Work Phone: [facility] 12-24-2022 11:37-0400 Systolic blood pressure 123 mm[Hg] Emile Armas MD Work Phone: [facility] Encounters Encounter Date Encounter Type Care [...] Bernard MD Work Phone: [facility]- Medicine at [facility] Comment on above: Ascending aorta dila tion ([facility]) (Primary Dx); 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 Start: 01-13-2024 End: 01-13-2024 ambulatory [facility] Start: 01-13-2024 End: 01-13-2024 ambulatory CHEPE PERAZA [facility] [place] [facility] Start: 12-30-2023 End: 12-30-2023 Bamboo flowsheet Sammy Stu DO Work Phone: [facility] Start: 12-30-2023 End: 12-30-2023 Bamboo flowsheet Sammy Stu DO Work Phone: [facility] Start: 12-30-2023 End: 12-30-2023 ambulatory SAMMY STU Not Available Start: 12-30-2023 End: 12-30-2023 flow sheet Sammy Stu DO Work Phone: [facility] Comment on above: 30 weeks gestation o f ; Third trimester ; Aortic stenosis of mother during ; Hypothyroid in , antepartum (CMS/HCC); Vaginal discharge during in second trimester; Encounter for screening for cervical length Start: 12-29-2023 End: 12-29-2023 ambulatory [facility] Start: 12-27-2023 End: 12-27-2023 Clinisync Result Encounter Sammy Stu DO Work Phone: [facility] External Department Unsolicited Start: 12-27-2023 End: 12-27-2023 Clinisync Result Encounter Sammy Stu DO Work Phone: [facility] External Department Unsolicited Start: 12-17-2023 End: 12-17-2023 Bamboo flowsheet Ella SQUIRES Work Phone: [facility] Start: 12-17-2023 End: 12-17-2023 Bamboo flowsheet Ella SQUIRES Work Phone: [facility] Start: 12-17-2023 End: 12-17-2023 flow sheet Ella SQUIRES Work Phone: [facility] Comment on above: 28 weeks gestation o f ; Third trimester Start: 12-17-2023 End: 12-17-2023 ambulatory ELLA NICOLE Not Available Start: 12-09-2023 End: 12-09-2023 Emergency department patient visit [facility] Start: 11-26-2023 End: 11-26-2023 ambulatory ELLA NICOLE Not Available Start: 11-18-2023 End: 11-18-2023 [place] [facility] Start: 10-31-2023 End: 10-31-2023 [facility] Start: 10-30-2023 End: 10-30-2023 ambulatory [facility] Not Available Start: 10-20-2023 End: 10-20-2023 [place] [facility] Start: 10-07-2023 End: 10-07-2023 ambulatory CHEPE PERAZA [facility] [place] [facility] Start: 09-30-2023 End: 09-30-2023 ambulatory ELLA NICOLE Not Available Start: 09-22-2023 End: 09-22-2023 Office outpatient new 45 minutes Latrice Hall MD Work Phone: Endocrinology Outpatient [facility] Comment on above: Thyroid nodule (Prim subhash Dx) Start: 09-22-2023 ambulatory LATRICE HALL Facilit y:[facility] Start: 09-01-2023 End: 09-01-2023 ambulatory SAMMY PERAZA Not Available Start: 07-31-2023 End: 07-31-2023 ambulatory DI PANCHAL Not Available Start: 06-20-2023 End: 06-20-2023 ambulatory DARRYN Robles [facility] Start: 06-02-2023 ambulatory HERVE Benavides ility:[facility] Start: 06-02-2023 End: 06-02-2023 Subsequent hospital visit by physician Herve Jimenez MD Work Phone: Department of Radiology Comment on above: Arrived Start: 05-27-2023 End: 05-27-2023 ambulatory DI Kika ABDULKADIR Not Available Start: 05-23-2023 End: 05-23-2023 ambulatory HERVE JIMENEZ [facility] Start: 01-09-2023 End: 01-09-2023 Subsequent hospital visit by physician Emile Armas MD Work Phone: Department of Radiology Comment on above: Arrived Start: 01-09-2023 ambulatory HERVE Benavides ility:[facility] Start: 12-24-2022 End: 12-24-2022 Subsequent hospital visit by physician Regan Neves STONE DRESSER-LENS EXAMINER Work Phone: [facility] [place] Comment on above: Arrived Start: 12-24-2022 ambulatory REGAN NEVES Facilit y:[facility] Start: 12-24-2022 End: 12-24-2022 Office outpatient new 45 minutes Emile Armas MD Work Phone: Department of Otolaryngology Comment on above: Lymphadenopathy (Alicia ramin Dx) Start: 12-24-2022 ambulatory SELF SELF Facility:[facility] Start: 11-20-2022 End: 11-20-2022 Office consultation new/estab patient 60 min Belle Jose DO Work Phone: Maternal Medicine [facility] [place] Comment on above: Encounter for precon ception consultation (Primary Dx); Bicuspid aortic valve Start: 11-20-2022 [facility] Start: 08-15-2022 End: 08-15-2022 Subsequent hospital visit by physician Chepe Peraza MD Work Phone: Cardiovascular Imaging Lab [facility] Comment on above: Canceled (Cancel Vantage son Not Listed - Please provide detailed information) Start: 05-21-2022 End: 05-22-2022 ambulatory Jake Foster MD Facility:[facility] Start: 06-05-2021 End: 06-05-2021 Postop follow up visit related to original px Charlotte Cárdenas MD Work Phone: [facility] [place] Comment on above: Postop check (Primar y [...] Sammy Stu DO Work Phone: Start: 12-27-2023 [facility] UA (CLEAN/CATCH) LANDSCAPING SPECIALIST/MICRO IF IND. Sammy Stu DO Work Phone: [...] esop hagus single contrast study Regan Neves STONE DRESSER-LENS EXAMINER Work Phone: Plan of Treatment Date Care Activity Detail Author Start: 01-07-2034 DTaP,Tdap and Td Vaccines (6 - Td or Tdap) DTaP,Tdap and Td Vaccines (6 - Td or Tdap) [facility] Start: 09-29-2026 Screening for malign ant neoplasm of cervix Pap Smear [facility] Start: 01-12-2025 Adult BMI Screening Adult BMI Screen ing [facility] Start: 01-12-2025 Tobacco Screening Tobacco Screening [facility] Start: 05-28-2024 End: 05-28-2024 Patient encounter procedure 05/28/2024 10:40 AM EDT Office Visit [facility] [address] [place] [phone] Di Panchal, TAVIA [address] [place] [address] [facility] Start: 02-12-2024 End: 02-12-2024 Patient encounter procedure 02/12/2024 2:00 PM EST Appointment Jodie Johnston [facility] [address] [place] [address] Jodie Johnston [facility] Start: 02-11-2024 End: 02-11-2024 Telemedicine consultation with patient 02/11/2024 8:00 AM EST Telemedicine [facility] [address] [place] [address] Duarte Bernard MD [address] [facility] [address] [place] [address] [facility] Start: 01-27-2024 End: 01-27-2024 ambulatory 01/27/2024 10:30 AM EST Initial [facility] [address] [place] [place] [address] [facility] Start: 01-26-2024 End: 01-26-2024 Patient encounter procedure 01/26/2024 1:30 PM EST Routine [facility] [address] [phone] Sammy Peraza DO [address] [place], [place] [id number] [facility] Start: 01-14-2024 End: 01-14-2024 Patient encounter procedure 01/14/2024 10:30 AM EST Routine [facility] [address] [facility] [phone] Ella Nicole PA [address] [place], [place] [id number] [facility] Start: 12-30-2023 End: 12-29-2024 US biophysical profile w non stress test US biophysical profile w non stress test Imaging Routine Aortic stenosis of mother during Hypothyroid in , antepartum ([facility]/H[facility]) Expected: 12/30/2023 (Approximate), Expires: 12/29/2024 [facility] [...] AM EDT Routine [facility] [address] [phone] Sammy Peraza DO [address] [place], [place] [id number] [facility] Start: 12-17-2023 End: 12-17-2023 Patient encounter procedure 12/17/2023 10:20 AM EDT Routine [facility] [address] [address] Ella Nicole PA [address] [place] [address] Arrived [facility] Comment on above: Arrived Start: 11-09-2023 Influenza vaccination [facility] Start: 06-03-2023 ambulatory Ambulatory Facility:[facility]lias Villanueva Start: 01-09-2023 End: 01-09-2023 ambulatory 01/09/2023 8:30 AM EDT Rehab Services Visit [facility] [address] [place] [phone] [facility] Start: 01-09-2023 End: 01-09-2023 Patient encounter procedure 01/09/2023 8:30 AM EDT Appointment Department of Radiology [address] [place] [address] Department of Radiology Start: 12-24-2022 End: 12-25-2023 CT Neck W contrast IV [facility] Comment on above: Expected: 12/24/2022 , Expires: 12/25/2023 1 Occurrences starti ng 12/24/2022 until 12/24/2022 Start: 12-24-2022 End: 12-25-2023 RF videography Hypopharynx and Esophagus Views W liquid and paste contrast PO during swallowing XR FLUORO MODIFIED BARIUM SWALLOW-ENT ONLY Imaging Routine Lymphadenopathy Expected: 12/24/2022, Expires: 12/25/2023 [facility] Comment on above: Expected: 12/24/2022 , Expires: 12/25/2023 Start: 11-08-2022 COVID-19 VACCINE ( season) COVID-19 VACCINE ( season) [facility] Start: 11-08-2022 Influenza vaccination [facility] Start: 11-08-2020 Influenza vaccination INFLUENZA VACC INE (#1) [facility] Start: 03-27-2018 End: 03-27-2018 Ambulatory 03/27/2018 Appointment Ultrasound Darryn Dow, LENS EXAMINER [address] [address] Department of Radiology Start: 03-18-2018 End: 03-18-2019 US scan of neck US NECK SOFT TISSUE Routine Other fatigue Lymphadenopathy of head and neck Expected: 03/18/2018, Expires: 03/18/2019 [facility] Work Phone: Comment on above: Expected: 03/18/2018 , Expires: 03/18/2019 Start: 11-08-2017 Influenza vaccination INFLUENZA VACC INE (#1) [facility] Work Phone: Start: 2015 Screening for malign ant neoplasm of cervix [facility] Start: 2013 Hepatitis B vaccination HEP B VACCINE (1 of 3 - 19+ 3-dose series) [facility] Start: 2013 Third diphtheria, tetanus and acellular pertussis (DTaP) vaccination TDAP (ADULT) [facility] Start: 02-04-2012 Adult BMI Follow Up Plan Adult BMI F ollow Up Plan [facility] Start: 02-04-2012 GONORRHEA SCREEN GONORRHEA SCREEN [facility] Work Phone: Start: 02-04-2012 Tetanus vaccination TETANUS [facility] Start: 2010 Screening for Chlamy kyle trachomatis CHLAMYDIA SCREEN [facility] Work Phone: Start: 2009 HIV screening HIV SCREENING DISCUSSI ON [facility] Start: 2007 HIV screening HIV SCREENING DISCUSSI ON [facility] Work Phone: Start: 2006 Depression Screening Depression Scre ening [facility] Start: 03-13-2005 Tetanus vaccination TETANUS [facility] Start: 2005 Vaccination for jelly n papillomavirus HPV VACCINE ADOL (1 - Female 3-dose series) [facility] Work Phone: Start: 02-04-2000 PNEUMOCOCCAL VACCINE SERIES (1 of 2 - PCV) PNEUMOCOCCAL VACCINE SERIES (1 of 2 - PCV) [facility] Start: 1999 COVID-19 VACCINE (1) COVID-19 VACCIN E (1) [facility] Start: 1994 COVID-19 VACCINE (#1) COVID-19 VACCI NE (#1) [facility] Start: 1994 Hepatitis C antibody , confirmatory test HEPATITIS C VIRUS SCREENING [facility] Start: 1994 Hepatitis C screening HEPATITI S C VIRUS SCREENING [facility] CHLAMYDIA TRACHOMATI S (GENITO/STI) CHLAMYDIA TRACHOMATIS (GENITO/STI) Lab Routine Vaginal discharge during in second trimester Ordered: 12/30/2023 [facility] Comment on above: Ordered: 12/30/2023 Laryngoscopy flexibl e diagnostic IL LARYNGOSCOPY FLEXIBLE DIAGNOSTIC IL Charge Routine Lymphadenopathy Ordered: 12/24/2022 [facility] Comment on above: Ordered: 12/24/2022 Neisseria gonorrhoea e DNA [Presence] in Unspecified specimen by VANESSA with probe detection Neisseria gonorrhea DNA probe, direct Lab Routine Vaginal discharge during in second trimester Ordered: 12/30/2023 [facility] Comment on above: Ordered: 12/30/2023 SURESWAB(R) ADVANCED VAGINITIS PLUS, TMA SURESWAB(R) ADVANCED VAGINITIS PLUS, TMA Pathology and Cytology Routine Vaginal discharge during in second trimester Ordered: 12/30/2023 [facility] Comment on above: Ordered: 12/30/2023 End: 06-02-2023 US Thyroid gland [facility] Work Phone: Comment on above: 1 Occurrences starti ng 06/02/2023 until 06/02/2023 Immunizations Immunization Date Immunization Notes Care Provider [facility] 12-25-2022 influenza virus vaccine, unspecified formulation Latrice Hall MD Work Phone: [facility] 01-08-2016 influenza virus vaccine, unspecified formulation Charlotte Cárdenas MD Work Phone: [facility] Payers Date Payer Category Payer Unknown [id number] 2023 Commercial Managed C are - POS [employer] [id number] 2023 Managed Care HMO (unspecified) [id number] 2023 Private Health Insurance [employer]MA [employer]LEGRE [id number] 2023-Present [address] [place] [address] [id number] 2023 Private Health Insurance [id number] 2021 Unknown [id number] 2020 Unknown [id number] [id number] 2.2.7.3.038100.315 2020 Unknown [id number] 1994 Unknown [id number] 2.16.840.1.297154.3.57 9.2.196 1994 Unknown [id number] 2.16.840.1.837839.3.57 9.2.196 1994 Unknown [id number] 2.16.840.1.235886.3.57 9.2.196 1994 Unknown [id number] 2.16.840.1.262875.3.57 9.2.1260 1994 Unknown [id number] 2.16.840.1.183227.3.57 9.2.594 1994 Unknown [id number] 2.16.840.1.523824.3.57 9.2.594 1994 Unknown [id number] 2.16.840.1.382493.3.57 9.2.594 1994 Unknown [id number] 2.16.840.1.241520.3.57 9.2.594 1994 Unknown [id number] 2.16.840.1.066889.3.57 9.2.594 1994 Unknown [id number] 2.16.840.1.659983.3.57 9.2.594 1994 Unknown [id number] 2.16.840.1.001037.3.57 9.2.594 1994 Unknown [id number] 2.16.840.1.258620.3.57 9.2.594 1994 Unknown [id number] 2.16.840.1.166333.3.57 9.2.173 1994 Unknown [id number] 2.16.840.1.220321.3.57 9.2.173 1994 Unknown [id number] 2.16.840.1.622567.3.57 9.2.1286 1994 Unknown [id number] 2.16.840.1.724454.3.57 9.2.1286 1994 Unknown [id number] 2.16.840.1.308709.3.57 9.2.1286 1994 Unknown [id number] 2.16840.1.396300.3.57 9.2.1286 1994 Unknown [id number] 2.16.840.1.164404.3.57 9.2.1286 1994 Unknown [id number] 2.16.840.1.994711.3.57 9.2.1286 1994 Unknown [id number] 2.16.840.1.940071.3.57 9.2.1286 1994 Unknown [id number] 2.16840.1.649441.3.57 9.2.1286 1994 Unknown [id number] 2.16.840.1.732555.3.57 9.2.1259 1994 Unknown [id number] 2.16.840.1.048226.3.57 9.2.1259 1994 Unknown [id number] 2.16.840.1.696583.3.57 9.2.1259 1994 Unknown [id number] 2.16.840.1.309470.3.57 9.2.1259 1994 Unknown [id number] 2.16.840.1.319312.3.57 9.2.1259 1994 Unknown [id number] 2.16.840.1.538083.3.57 9.2.1259 1994 Unknown [id number] 2.16.840.1.985187.3.57 9.2.1259 1994 Unknown [id number] 2.16.840.1.746403.3.57 9.2.1259 1994 Unknown [id number] 2.16.840.1.600094.3.57 9.2.1259 Social History Date Type Detail Facility Tobacco smoking stat us MTIS Unknown if ever smoked [facility] Work Phone: Start: 1994 Sex Assigned At Not on file [facility] Work Phone: Start: 04-21-2018 End: 05-27-2023 Tobacco smoking status NHIS Never smoked tobacco [facility] Start: 04-21-2018 End: 05-27-2023 Tobacco use and exposure Smokeless tobacco non-user [facility] Start: 06-05-2021 End: 09-22-2023 Alcohol intake Current drinker of alcohol (finding) [facility] Start: 04-15-2020 History SDOH Alcohol Frequency 2 [facility] Start: 04-15-2020 History SDOH Alcohol Std Drinks 1 [facility] Start: 05-10-2021 History SDOH Alcohol Comment 1-2 drinks per month [facility] Start: 05-26-2021 End: 06-05-2021 Exposure to SARS-CoV-2 (event) Not sure [facility] Start: 04-15-2020 End: 05-27-2023 History of Social function [facility] Start: 04-15-2020 End: 05-27-2023 Alcohol Use Disorder Identification Test - Consumption [AUDIT-C] [facility] How often to you hav e a drink containing alcohol? Monthly or less [facility] How many standard dr inks containing alcohol do you have on a typical day? 1 or 2 [facility] How often do you hav e 6 or more drinks on 1 occasion? Never [facility] Start: 03-16-2017 Gender identity Identifies as female gender (finding) [facility] Adolescent depressio n screening assessment 0 [facility] Start: 1995 Sex assigned at Female [facility] Start: 11-26-2023 End: 12-30-2023 Alcoholic beverage intake Ex-drinker (finding) [facility] Start: 06-16-2023 [facility] Start: 06-29-2020 Alcohol Comment rarely [facility] Start: 10-11-2014 Sex Female (finding) [facility] Clinical Notes 06-05-2021 to 01-14-2024 TAVIA Parsons [...] Medication Instructions omega-3 1000 MG capsule capsule [place]-3 Fatty Acids (OMEGA 3 PO) Take by [...] of: TAVIA Parsons documented in this encounter [facility] 01-13-2024 History of Present illness Narrative [...] echocardiography in 2020. 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 She has seen java development manager. No future testing or ultrasound required per [...] Complete transfer of care To the Regional building custodial supervisor Clinic at [facility] and delivery at [facility]. 4. Consult to [facility] done today 5. Continue testing at her OB office 6. Delivery at 39 or 40 weeks gestation at [facility] 7. Stable and therefore patient is still a candidate for vaginal delivery. 8. Dr. Peraza Cardiology need to be notified and consulted formally at the time of induction of labor Thank you for allowing me to participate in Lisa Cardenas care. If there are any questions, please do not hesitate to call me. Sincerely, DUARTE BERNARD MD documented in this encounter [facility] 01-13-2024 Note Lonnie Peres [address] [facility] [address] January 13, 2024 Patient: Lisa Cardenas Date [...] on a single (more content not included)... [facility] 12-30-2023 History of Present illness Narrative Reason for Appointment: Patient ID: Lisa Cardenas is a 28 y.o. female who presents for Routine Visit Patient presents today for Return OB appointment. MEDICATIONS Current Outpatient Medications Medication Instructions [place]-3 Fatty Acids (OMEGA 3 PO) Take by [...] nursing note reviewed. Exam conducted with a macroeconomics professor present. Vitals: Estimated body mass index is [...] Sammy Peraza DO documented in this encounter [facility] 12-17-2023 History of Present illness Narrative Reason for Appointment: Patient ID: Lisa Cardenas is a 28 y.o. female who presents for Routine Visit Patient presents today for Return OB appointment. MEDICATIONS Current Outpatient Medications Medication Instructions [place]-3 Fatty Acids (OMEGA 3 PO) Oral Vit-DSS-Fe [...] nursing note reviewed. Exam conducted with a macroeconomics professor present. Vitals: Estimated body mass index is [...] of: TAVIA Parsons documented in this encounter [facility] 10-07-2023 Note Lonnie Peres [address] [facility] [address] October 07, 2023 Patient: Lisa Cardenas Date [...] Normal biventricular systoli (more content not included)... [facility] 10-07-2023 Note Outpatient echo Must use antibiotic for dental procedures May fly Passive second stage deliver in [facility] 09-22-2023 History of Present illness Narrative RFC: Patient with thyroid nodule. Most recent US showing nodule TI-RADS 3 Regan Neves, STONE DRESSER-* HPI: Ms. Cardenas is a 28 y.o. [...] Hyperlipidemia, Hyperthyroidism, Hypogonadism male, Hypothyroidism, Liver disease, VA (myocardial infarction), Migraine, Multinodular goiter, LADY (obstructive [...] hours as needed. lidocaine viscous-Alum & Mag Gavimoswg-Snymzr-tfstzjjxotIWBVL oral mouthwash Swish and swallow 15mL by mouth every 6 hours as needed. norgestimate-ethinyl estradiol (Sprintec 28) 0.25-35 MG-MCG tablet Take 1 tablet by mouth at bedtime. nystatin 149131 UNIT/ML oral suspension Swish and swallow 10 [...] Echogenicity: Hyperechoic or isoechoic (1 point) Shape: Hjzab-ljqv-ttst (0 points) Margin: Smooth (0 points) Echogenic [...] Fellow, Division of Endocrinology, Diabetes, and Metabolism [facility] [place] [address] No follow-ups on file. Patient has verified [...] Fellow, Division of Endocrinology, Diabetes, and Metabolism [facility] [place] [address] documented in this encounter [facility] 09-22-2023 Instructions Latrice Hall MD - 09/22/2023 1:30 PM EDT It was great seeing you today! Division of Endocrinology Outpatient [facility] Follow-up appointments: Please arrive at least 20 [...] Any non-urgent results will be relayed via Sumerian if you have signed up for this [...] help perpare you for your future visits: [email or web address] --> Patient Care section. Sincerely, aLtrice Hall MD Fellow, Division of Endocrinology, Diabetes, and Metabolism [facility] [address] [place] [address] documented in this encounter [facility] 09-22-2023 Procedure note Associated Ord er(s): CHG US SOFT TISSUE HEAD & NECK REAL TIME IMGE DOCM Ms. Cardenas was seen and examined with Dr. Hall, I independently verified the findings on US and agree with the documented report - thyroid ultrasound report appears in the notes tab. [facility] 09-22-2023 Procedure note Associated Ord er(s): CHG US SOFT TISSUE HEAD & NECK REAL TIME IMGE DOCM Ms. Cardenas was seen and examined with Dr. Hall, I independently verified the findings on US and agree with the documented report - thyroid ultrasound report appears in the notes tab. documented in this encounter [facility] 12-24-2022 History of Present illness Narrative Chief Complaint: Chief Complaint Patient presents with New Patient Reports right side of neck with questionable swelling, continues to have problems with food getting stuck. Has to wash down food with liquids. HPI: Lisa Cardenas is a 27 y.o. female smoker / non-smoker who presents 12/24/22 to the [facility] for [...] Laterality: Bilateral; Surgeon: Charlotte Cárdenas MD; Location: [facility] SAME DAY SURGERY MAIN OR CHOLECYSTECTOMY ROBOTIC N/A 04/06/2019 Laterality: N/A; Surgeon: Ramin Denney MD; [facility] WISDOM TEETH EXTRACTION [...] 1 Bottle 0 lidocaine viscous-Alum & Mag Lklwtwcvj-Bozibv-ejtermzvypVGRQB oral mouthwash Swish and swallow 15mL by mouth every 6 hours as needed. 240 mL 0 norgestimate-ethinyl estradiol (Sprintec 28) 0.25-35 MG-MCG tablet Take 1 tablet by mouth at bedtime. nystatin [id number] UNIT/ML oral suspension Swish and swallow 10 [...] / non-smoker who presents 12/24/22 to the [facility] for [...] Laterality: Bilateral; Surgeon: Jigar Hutchins MD; Location: [facility] MAIN OR TONSILLECTOMY Bilateral 05/10/2021 Laterality: Bilateral; Surgeon: Charlotte Cárdenas MD; Location: [facility] SAME DAY SURGERY MAIN OR CHOLECYSTECTOMY ROBOTIC N/A 04/06/2019 Laterality: N/A; Surgeon: Ramin Denney MD; [facility] WISDOM TEETH EXTRACTION [...] 1 Bottle 0 lidocaine viscous-Alum & Mag Uqvtligti-Mwpzau-cirwqlqxxbXIJPB oral mouthwash Swish and swallow 15mL by mouth every 6 hours as needed. 240 mL 0 norgestimate-ethinyl estradiol (Sprintec 28) 0.25-35 MG-MCG tablet Take 1 tablet by mouth at bedtime. nystatin 401738 UNIT/ML oral suspension Swish and swallow 10 [...] not concerning. documented in this encounter [facility] 11-20-2022 History of Present illness Narrative Maternal- Medicine (High Risk Obstetrics) Consultation Indication for consultation: Congenital Bicuspid aortic valve Referring Provider: Herve Jimenez MD History Lisa Cardenas is a 27yo G0 LMP [id number] using nothing for contraception who presents for [...] [facility]. She does not currently have an personnel research scientist. Ms. Lisa Cardenas has the following problems [...] Surgeon: Ramin Denney MD; [facility] WISDOM TEETH EXTRACTION [...] 1 Bottle 0 lidocaine viscous-Alum & Mag Etevhyian-Vmqhqb-mudijatzycAQWGG oral mouthwash Swish and swallow 15mL by mouth every 6 hours as needed. 240 mL 0 norgestimate-ethinyl estradiol (Sprintec 28) 0.25-35 MG-MCG tablet Take 1 tablet by mouth at bedtime. nystatin 846268 UNIT/ML oral suspension Swish and swallow 10 [...] . --. 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 The patient is currently asymptomatic from a cardiac standpoint, but is at risk for aortic dissection (especially given known ascending aortic dilation), heart failure, VA, and arrhythmias due to expected cardiovascular changes [...] as Marfan syndrome. 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 Thank [...] and Gynecology Division of Maternal Medicine [facility] documented in this encounter [facility] 06-05-2021 Instructions Charlotte Cárdenas MD - 06/05/2021 11:42 AM EDT ASSESSMENT/PLAN: Status post tonsillectomy Healing well Pathology benign Followup as needed documented in this encounter [facility] 06-05-2021 History of Present illness Narrative [...] as needed documented in this encounter [facility] Evaluation note Diagnosis Postop check- Primary Follow-up examination, following unspecified surgery documented [facility] Diagnosis Encounter for preconception consultation- Primary Bicuspid aortic valve Congenital insufficiency of aortic valve documented [facility] Diagnosis Lymphadenopathy- Primary Enlargement of lymph nodes documented [facility] Diagnosis Lymphadenopathy Enlargement of lymph nodes documented [facility] Diagnosis Lymphadenopathy Enlargement of lymph nodes documented [facility] this [facility] Diagnosis Thyroid nodule Nontoxic uninodular goiter documented [facility] this [facility] Diagnosis Thyroid nodule- Primary Nontoxic uninodular goiter documented [facility] this encounter [facility] Diagnosis 28 weeks gestation of Third trimester state, incidental documented in this encounter [facility]* Diagnosis 30 weeks gestation of Third trimester state, incidental Aortic stenosis of mother during Hypothyroid in , antepartum (CMS/HCC) Vaginal discharge during in second trimester Encounter for screening for cervical length documented in this encounter [facility]* Diagnosis Ascending aorta dilation (CMS-HCC)- Primary Thoracic aneurysm without mention of rupture 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 [facility] Diagnosis Third trimester state, incidental 32 weeks gestation of documented in this encounter [facility]ospital Discharge instructions* Attachments The following attachments cannot be sent through Care Everywhere. * [facility] AMB SMOKING CESSATION LINKS [facility] Reason for Referral Status Reason Specialty Diagnoses / Procedures Referred By Contact Referred To Contact New Request Diagnoses Other fatigue Lymphadenopathy of head and neck Procedures US NECK SOFT TISSUE Darryn Dow, LENS EXAMINER [address] [address] Specialty Diagnoses / Procedures Referred By Contac t Referred To Contact Diagnoses Lymphadenopathy Procedures XR FLUORO MODIFIED BARIUM SWALLOW-ENT ONLY CHG RADIOLOGIC EXAM ESOPHAGUS SINGLE CONTRAST STUDY Regan Neves, STONE DRESSER-LENS EXAMINER [address] [place] [address] Referral ID Status Reason Start Date Expiration Date V isits Requested Visits Authorized [id number] Auth Not Needed 12/24/2022 01/18/2024 1 1 Specialty Diagnoses / Procedures Referred By Contac t Referred To Contact Diagnoses Lymphadenopathy EdinsonRegan veronica, STONE DRESSER-LENS EXAMINER [address] [place] [address] Referral ID Status Reason Start Date Expiration Date V isits Requested Visits Authorized [id number] Pending Review 12/24/2022 01/18/2024 1 1 Specialty Diagnoses / Procedures Referred By Contac t Referred To Contact Diagnoses Lymphadenopathy Procedures CT NECK WITH CONTRAST IL CT NECK TISSUE CONTRAST EdinsonRegan veronica, STONE DRESSER-LENS EXAMINER [address] [place] [address] Referral ID Status Reason Start Date Expiration Date Visits Re quested Visits Authorized [id number] Closed 12/24/2022 01/18/2024 1 1 Referral ID Status Reason Start Date Expiration Date Visits Re quested Visits Authorized [id number] Closed 12/24/2022 01/18/2024 1 1 Specialty Diagnoses / Procedures Referred By Contac t Referred To Contact Diagnoses Thyroid nodule Procedures US THYROID IL US,HEAD/NECK TISSUES,REAL TIME Herve Jimenez MD [address] [place] [address] [facility] [address] [place] [address] Referral ID Status Reason Start Date Expiration Date V isits Requested Visits Authorized [id number] New Request 05/27/2023 06/20/2024 1 1 Specialty Diagnoses / Procedures Referred By Contac t Referred To Contact Diagnoses Thyroid nodule Procedures US [facility] Andres Torres MD [address] [place] [address] [address] [place] [address] Referral ID Status Reason Start Date Expiration Date V isits Requested Visits Authorized [id number] New Request 09/22/2023 10/16/2024 1 1 Assessments [...] section and content) DATE CREATED AUTHOR 08/07/2020 [facility] DATE CREATED AUTHOR AUTHOR'S ORGANIZ ATION 05/28/2022 [facility] DATE CREATED AUTHOR AUTHOR'S ORGANIZ ATION 05/24/2023 [facility] DATE CREATED AUTHOR AUTHOR'S ORGANIZ ATION 09/26/2023 [facility] DATE CREATED AUTHOR AUTHOR'S ORGANIZ ATION 12/17/2023 [facility] DATE CREATED AUTHOR AUTHOR'S ORGANIZ ATION 01/15/2024 [facility] DATE CREATED AUTHOR AUTHOR'S ORGANIZ ATION 01/16/2024 [facility] EPIC DATE CREATED AUTHOR AUTHOR'S ORGANIZ ATION 01/16/2024 [facility] Reason for Visit (unrecogniz ed section [...] W/O FOL W/CONT, CHEST Chepe Peraza MD [address] [place] [address] [facility] [address] [place] [address] Referral ID Status Reason Start Date Expiration Date V isits Requested Visits Authorized [id number] Auth Not Needed 05/29/2022 06/23/2023 1 1 [...] Armas MD [address] [place] [address] Referral ID Status Reason Start Date Expiration Date Visits Re quested Visits Authorized [id number] Closed 12/24/2022 01/18/2024 1 1 Specialty Diagnoses / Procedures Referred By Contac t Referred To Contact Diagnoses Lymphadenopathy Procedures CT NECK WITH CONTRAST IL CT NECK TISSUE CONTRAST Regan Neves, STONE DRESSER-LENS EXAMINER [address] [place] [address] Referral ID Status Reason Start Date Expiration Date Visits Re quested Visits Authorized [id number] Closed 12/24/2022 01/18/2024 1 1 Specialty Diagnoses / Procedures Referred By Contac t Referred To Contact Diagnoses Lymphadenopathy Procedures XR FLUORO MODIFIED BARIUM SWALLOW-ENT ONLY CHG RADIOLOGIC EXAM ESOPHAGUS SINGLE CONTRAST STUDY Regna Neves, STONE DRESSER-LENS EXAMINER [address] [place] [address] Referral ID Status Reason Start Date Expiration Date Visits Re quested Visits Authorized [id number] Closed 12/24/2022 01/18/2024 1 1 Specialty Diagnoses / Procedures Referred By Contac t Referred To Contact Diagnoses Thyroid nodule Procedures US THYROID IL US,HEAD/NECK TISSUES,REAL TIME Herve Jimenez MD [address] [place] [address] [facility] [address] [place] [address] Referral ID Status Reason Start Date Expiration Date V isits Requested Visits Authorized [id number] New Request 05/27/2023 06/20/2024 1 1 Reason Comments Thyroid Nodule Specialty Diagnoses / Procedures Referred By Emanuel t Referred To Contact Endocrinology, Diabetes & Metabolism Diagnoses Thyroid nodule Regan Neves, STONE DRESSER-LENS EXAMINER [address] [place] [address] Referral ID Status Reason Start Date Expiration Date V isits Requested Visits Authorized [id number] Pending Review 06/04/2023 06/28/2024 1 1 Reason Comments Routine Visit Reason Comments aortic root dilation aortic stenosis Care Teams (unrecognized sec tion and content) American Indian Studies Professor Relationship Specialty Start Date End Date Herve Jimenez MD [address] [place] [address] PCP - General Family Medicine 09/23/19 Chepe Peraza MD [address] [place] [address] [facility] 04/30/21 American Indian Studies Professor Relationship Specialty Start Date End Date Herve Jimenez MD [address] [place] [address] PCP - General Family Medicine 09/23/19 Chepe Peraza MD [address] [place] [address] [facility] 04/30/21 American Indian Studies Professor Relationship Specialty Start Date End Date Herve Jimenez MD [address] [place] [address] PCP - General Family Medicine 09/23/19 Chepe Peraza MD [address] [place] [address] [facility] 04/30/21 American Indian Studies Professor Relationship Specialty Start Date End Date Herve Jimenez MD [address] [place] [address] PCP - General Family Medicine 09/23/19 Chepe Peraza MD [address] [place] [address] [facility] 04/30/21 American Indian Studies Professor Relationship Specialty Start Date End Date Herve Jimenez MD [address] [place] [address] PCP - General Family Medicine 09/23/19 Chepe Peraza MD [address] [place] [address] [facility] 04/30/21 American Indian Studies Professor Relationship Specialty Start Date End Date Herve Jimenez MD [address] [place] [address] PCP - General Family Medicine 09/23/19 Chepe Peraza MD [address] [place] [address] [facility] 04/30/21 American Indian Studies Professor Relationship Specialty Start Date End Date Herve Jimenez MD [address] [address] PCP - General Family Medicine 09/23/19 Chepe Peraza MD [address] [place] [address] [facility] 04/30/21 American Indian Studies Professor Relationship Specialty Start Date End Date Herve Jimenez MD [address] [place] [address] PCP - General Family Medicine 09/23/19 Chepe Peraza MD [address] [place] [address] [facility] 04/30/21 American Indian Studies Professor Relationship Specialty Start Date End Date Herve Jimenez MD [address] [place] [address] PCP - General Family Medicine 06/29/20 FOR [...] BE BASED ON THE PRIMARY CLINICAL RECORDS. [facility] [employer] [facility]. provides no warranty or guarantee of the accuracy or completeness of information in this document.
[2024-01-26 10:10] VITALS: BP 111/71; PULSE 88
--- NOTE | 2024-01-26 10:35 | US_ITS ---
[address] [address] Patient Name: ADRY LEVY MRN: [id number] date: 1995 Sex: F Assigned Patient Location: [facility] Current Patient Location: Accession/Order Number: [id number] Exam Date: 01/26/2024 10:43 Report Date: 01/27/2024 04:51 At the request of: RICKY PHAM Procedure: US OB cervical length EXAMINATION: US OB BPP w non-stress, US OB cervical length HISTORY:Hypothyroid in COMPARISON: Ultrasound OB biophysical 01/19/2024 TECHNIQUE: Ultrasound biophysical profile was performed in the radiology department. BREATHING MOVEMENTS: 2 GROSS BODY MOVEMENTS: 2 TONE: 2 QUALITATIVE AMNIOTIC FLUID VOLUME: 2 PRESENTATION: Cephalic HEART RATE: 133 bpm AMNIOTIC FLUID VOLUME: 22.01 cm GESTATIONAL AGE: 34 weeks 0 days US/US OB cervical length IMPRESSION: 1. Total biophysical profile score: 8 2. Closed cervix 4.9 cm in length. Electronically authenticated by: JELLY TORRES Date: 01/27/2024 04:51
--- NOTE | 2024-01-26 10:35 | US_ITS ---
[address] [address] Patient Name: ADRY LEVY MRN: [id number] date: 1995 Sex: F Assigned Patient Location: [facility] Current Patient Location: Accession/Order Number: [id number] Exam Date: 01/26/2024 10:43 Report Date: 01/27/2024 04:51 At the request of: RICKY PHAM Procedure: US OB BPP w non-stress EXAMINATION: US OB BPP w non-stress, US OB cervical length HISTORY:Hypothyroid in COMPARISON: Ultrasound OB biophysical 01/19/2024 TECHNIQUE: Ultrasound biophysical profile was performed in the radiology department. BREATHING MOVEMENTS: 2 GROSS BODY MOVEMENTS: 2 TONE: 2 QUALITATIVE AMNIOTIC FLUID VOLUME: 2 PRESENTATION: Cephalic HEART RATE: 133 bpm AMNIOTIC FLUID VOLUME: 22.01 cm GESTATIONAL AGE: 34 weeks 0 days US/US OB BPP w non-stress IMPRESSION: 1. Total biophysical profile score: 8 2. Closed cervix 4.9 cm in length. Electronically authenticated by: JELLY TORRES Date: 01/27/2024 04:51
== END 2024-01-26 11:09 | disposition home or self-care (01) ==
LOC: US 06:34 → FBC 09:59
PROVIDERS: Visit Provider Obstetrics & Gynecology
DX: O26.893 Other specified pregnancy related conditions, third trimester (principal); Z3A.34 34 weeks gestation of pregnancy
CPT/HCPCS: 76817; 76818

== ENCOUNTER 2024-02-04 10:10 | Outpatient (OUT) | payer OTHER, SELFPAY ==
--- NOTE | 2024-02-04 10:23 | US_ITS ---
[place] [id number] Patient Name: ADRY LEVY MRN: [id number] date: 1995 Sex: F Assigned Patient Location: US Current Patient Location: Accession/Order Number: [id number] Exam Date: 02/04/2024 10:30 Report Date: 02/05/2024 06:09 At the request of: RICKY PHAM Procedure: US OB BPP w non-stress EXAMINATION: US OB BPP w non-stress HISTORY:Hypothyroidism COMPARISON: Ultrasound OB biophysical 01/26/2024 TECHNIQUE: Ultrasound biophysical profile was performed in the radiology department. BREATHING MOVEMENTS: 2 GROSS BODY MOVEMENTS: 2 TONE: 2 QUALITATIVE AMNIOTIC FLUID VOLUME: 2 PRESENTATION: BREECH HEART RATE: 134.33 bpm AMNIOTIC FLUID VOLUME: 16.47 cm GESTATIONAL AGE: 35 weeks 2 days US/US OB BPP w non-stress IMPRESSION: Total biophysical profile score: 8 Electronically authenticated by: JELLY TORRES Date: 02/05/2024 06:09
== END 2024-02-04 11:25 ==
LOC: US 10:13 → FBC 10:29
PROVIDERS: Visit Provider Obstetrics & Gynecology
DX: O26.893 Other specified pregnancy related conditions, third trimester (principal); Z3A.35 35 weeks gestation of pregnancy; O99.413 Diseases of the circulatory system complicating pregnancy, third trimester
CPT/HCPCS: 76818

== ENCOUNTER 2024-02-11 06:25 | Outpatient (OUT) | payer OTHER, SELFPAY ==
--- OUTSIDE RECORDS SUMMARY | 2024-01-29 07:21 | XMS_ITS | CCD ---
Author Organization [facility] Care Team Providers Care Jewelry Department Supervisor Name Role Phone Unavailable Unavailable Unavailable Herve Jimenez MD Primary Care Provider Chepe Peraza MD Unavailable [phone] Herve Jimenez MD Primary Care Unavail able Cristian DORADO, Jake Og Attending UnavailHerve Chiang MD Primary Care Unavail swathi Foster MD, Jake Og Attending Unavailfred Foster MD, Jake Og Attending UnavailHerve Chiang MD Primary Care Unavail able Herve Jimenez MD Primary Care Provider Chepe Peraza MD Unavailable Herve Jimenez MD Primary Care Provider HERVE JIMENEZ Attending Unavailable Chepe Peraza MD Unavailable [phone] LATRICE HALL Attending Unavailable BARBARA HERVE J Primary Care Unavailable REGAN NEVES Referring Unavailable SHOEMAKER HERVE J Primary Care Unavailable SELF, SELF Referring Unavailable ANATOLIY JSOEANDA Akil Admitting Unavailable BELLE JOSE Attending Unavailable SELF, [...] M Referring Unavailable OZER, ENVER Attending Unavailable LAURAMANDI, HERVE J Primary Care Unavailable SHOEMAMANDI, HERVE J Attending Unavailable SHOEMAKER, HERVE J Referring Unavailable SHOEMAKER, HERVE J Primary Care Unavailable PALOMA, DARRYN Primary Care Unavailable DU PHILIP Referring Unavailable FRUREANNA, DARRYN Primary Care Unavailable MONICA SOFIA Attending Unavailable Unavailable Primary Care Provider Unavailfaith Jimenez MD, Herve Morejon Primary Care Provider SAMMY PERAZA R Referring Unavailable SHOEMAKER, HERVE KENYA Primary Care Unavailabl e DUARTE BERNARD Attending Unavailable THERESE GLEASON Referring Unavailable SHOEMAKER, HERVE KENYA Primary Care Unavailabl e TEA, CHEPE Pham Referring Unavailable SHOEMAKER, HERVE KENYA Primary Care Unavailabl e STU, SAMMY R Referring Unavailable SHOEMAKER, HERVE KENYA Primary Care Unavailabl e SANTI CROWLEY Attending Unavailable MARÍA ELENA JOSEPH Referring Unavailabl e SHOEMAKER, HERVE KENYA Primary Care Unavailabl e CHEPE PERAZA A Referring Unavailable SHOEMAKER, HERVE KENYA Primary Care Unavailabl e STU, SAMMY R Referring Unavailable SHOEMAKER, HERVE KENYA Primary Care Unavailabl e DUARTE BERNARD Attending Unavailable STU, SAMMY R Referring Unavailable SHOEMAKER, HERVE KENYA Primary Care Unavailabl e PERAZA, CHEPE Attending Unavailable PERAZA, CHEPE Attending Unavailable DI PANCHAL Attending Unavailable STU, SAMMY Attending Unavailable BONNIE, ELLA Attending Unavailable STU, SAMMY Attending Unavailable BONNIE, ELLA Attending Unavailable BONNIE, ELLA Attending Unavailable STU, SAMMY Attending Unavailable BONNIE, ELLA Attending Unavailable STU, SAMMY Attending Unavailable Allergies Allergy Classification Reported Allergen(s) Allergy Type Date of Onset Reaction(s) Facility (20 sources) Amoxicillin; Translations: [amoxicillin] Drug Allergy 04-14-19 13 Rash, Unknown [facility] Work Phone: (12 sources) Clarithromycin; Translations: [clarithromycin] Drug Allergy 10-07-19 16 Rash [facility] Work Phone: (19 sources) Clindamycin; Translations: [clindamycin] Drug Allergy 03-16-19 18 [facility] Work Phone: (20 sources) Doxycycline; Translations: [doxycycline] Drug Allergy 04-14-19 13 Unknown [facility] Work Phone: (16 sources) Clarithromycin Propensity to adverse reactions to drug 10-07-19 16 Rash, Unknown [facility] Work Phone: (14 sources) Erythromycin; Translations: [ERYTHROMYCIN] Drug Allergy 04-14-19 13 [facility] (12 sources) Spironolactone; Translations: [SPIRONOLACTONE] Drug Allergy 05-27-19 24 Dizziness [facility] (10 sources) Clindamycin/Lincom ycin Drug Intolerance 07-13-19 15 Unknown [facility] (2 sources) Spironolactone Drug Allergy 09-09-19 24 [facility] ([facility] Lincomycin; Translations: [LINCOMYCIN] Drug Allergy 07-13-19 15 [facility] Medications Current Medications Medication Drug Class(es) [...] sources) omega-3 1000 MG capsule capsule Active lidocaine viscous 80 mL, diphenhydrAMINE (BENADRYL) [...] 0 05/22/2021 Active lidocaine viscous-Alum & Mag Ukqjianus-Dfjykg-cyosgvlsrpXBJMR oral mouthwash (8 sources) Start: 05-22-2021 take 15 mL by mouth every six hours as needed lidocaine viscous-Alum & Mag Bjygabuqa-Qiddkp-reqbvtqxfjMOOSY oral mouthwash Swish and swallow 15mL by mouth every 6 hours as needed. 240 mL 05/22/2021 Active Start: 05-22-2021 take 15 mL by mouth every six hours as needed lidocaine viscous-Alum & Mag Zfnndpnkf-Metvtg-dvbxxosawbJLAMQ oral mouthwash Swish and swallow 15mL by mouth every 6 hours as needed. 240 mL 0 05/22/2021 Active nystatin 615120 unt/ml oral suspension (8 sources) Polyene Antifungal Start: 05-16-2021 take 10 mL by mouth four times daily nystatin 397758 UNIT/ML oral suspension Swish and swallow 10 mL 4 times daily. 280 mL 05/16/2021 Active Chase-3 Fatty Acids (OMEGA 3 PO) (10 sources) Chase-3 Fatty Ac ids (OMEGA 3 PO) Take [...] 05/22/2021 Active no115/iron/folic acid ( 19 ORAL) (2 sources) no115/iron/folic acid ( 19 ORAL) Take by mouth. Active Completed/Discontinued Medications Medication Drug Class(es) Dates Sig (Normalized) Sig (Original) Barium Sulfate (VARIBAR THIN LIQUID) 40 % 50 mL (1 source) Start: 01-09-2023 End: 01-09-2023 Barium Sulfate (VARIBAR THIN LIQUID) 40 % 50 mL Ethinyl Estradiol / norgestimate (10 sources) Progestin, Estrogen End: 01-26-2024 take 1 tablet by mouth once norgestimate-ethiny l estradioL (ORTHO TRI-CYCLEN,TRINESSA ) 0.18/0.215/0.25 mg-35 mcg (28) per tablet Take 1 tablet by mouth. 01/26/2024 Discontinued () take 1 tablet by mouth once norg estimate-ethinyl estradioL (ORTHO TRI-CYCLEN,TRINESSA) 0.18/0.215/0.25 mg-35 mcg (28) per tablet Take 1 tablet by mouth. Active take 1 tablet by mouth at bedtim e norgestimate-ethinyl estradiol (Sprintec 28) 0.25-35 MG-MCG tablet Take 1 tablet by mouth at bedtime. Active iohexol (OMNIPAQUE) 350 MG/M L injection 1-171 mL (1 source) Start: 12-24-2022 End: 12-24-2022 iohexol (OMNIPAQUE) 350 MG/M L injection 1-171 mL 20 ml sodium chloride 9 mg/m l injection (1 source) Start: 12-24-2022 End: 12-24-2022 Sodium chloride (PF) 0.9 % injection 1-100 mL Problems Active Problems Problem Classification Problem Date Documented Date Episodic/Chronic Abdominal pain (1 source) Unspecified abdominal pain; Translations: [Unspecified abdominal pain] Onset: 12-09-2023 Episodic Acute and chronic tonsillitis (8 sources) Chronic tonsillitis; Translations: [Chronic tonsillitis] Onset: 03-19-2021 03-19-2021 Chronic Aortic; peripheral; and visceral artery aneurysms (19 sources) Ascending aorta dilatation; Translations: [Thoracic aortic ectasia] Onset: 05-21-2022 01-13-2024 Chronic Asthma (6 sources) Asthma; Translations: [Unspecified asthma, uncomplicated] Onset: 11-20-2022 11-20-2022 Chronic Cardiac and circulatory congenital anomalies (20 sources) Bicuspid aortic valve; Translations: [Congenital insufficiency of aortic valve] Onset: 07-15-2017 11-20-2022 Chronic Cardiac dysrhythmias (6 sources) Palpitations; Translations: [Palpitations] Onset: 07-15-2017 07-15-2017 Episodic Contraceptive and procreative management (5 sources) Patient encounter status; Translations: [Encounter for other general counseling and advice on procreation] Onset: 11-20-2022 11-20-2022 Episodic Headache; including migraine (2 sources) Ophthalmic migraine; Translations: [Migraine with aura, not [...] unspecified trimester] 12-30-2023 Episodic Other complications of (4 sources) Hypothyroidism in ; Translations: [Endocrine, nutritional and metabolic diseases complicating , unspecified trimester] Onset: 01-26-2024 Resolved: 01-26-2024 12-30-2023 Episodic Other complications of (2 sources) Vaginal discharge; Translations: [Other specified related conditions, second trimester] 12-30-2023 Episodic Other complications of (13 sources) Disorder of cardiovascular system; Translations: [Diseases of the circulatory system complicating , second trimester] Onset: 01-26-2024 01-13-2024 Episodic Other complications of (1 source) [...] 10-20-2023 Episodic Other and delivery including normal (7 sources) Third trimester ; Translations: [Encounter for supervision of normal , unspecified, third trimester] Onset: 01-26-2024 12-17-2023 Episodic Other screening for suspected conditions [...] Episodic Conditions associated with dizziness or vertigo (2 sources) Dizziness; Translations: [Dizziness and giddiness] Onset: 06-29-2020 [...] UA Negative Negative - 4(70) +++ mg/dL [facility] Blood, UA Negative Negative - 50 Sina/mcL [facility] Clarity, UA Clear [facility] re Color, UA Roxanne [facility] e Glucose, UA Negative Negative - 1999(110) ++++ mg/dL [facility] Interpretation and review of laboratory results Abnormal [facility] Ketones, UA Positive Negative - 160(16) ++++ mg/dL [facility] Comment on above: 15 Leukocytes, UA Trace Negative - 500+++ Amos/mcL [facility] Nitrite, UA Negative Negative - Positive [facility] pH, UA 7 5 - 9 [facility] e Protein, UA Positive Negative - 1999(20) ++++ mg/dL [facility] Comment on above: 30 Spec Grav, UA 1.02 1 - 1.03 [facility] Urobilinogen, UA 0.2 0.2 - 12 mg/dL [facility] 37on 01-13-2024 37 Echo results: [...] not dizzy. ECHO at 36 weeks Normal [facility] Office Visiton 01-13-2024 Follow-up visit [id number] Norma Cardenas 1995 F Date Provider Department Center 01/13/2024 CHEPE GOODSON RPW PED [employer] No family history on file Level of Service:23658 [place] OFFICE/OUTPATIENT ESTABLISHED MOD MDM 30 MIN Reason for Visit and Comments: Aortic Dilatation [Other] - 32 wks Normal [facility] Orders Onlyon 01-13-2024 Orders Only [id number] Norma Cardenas 1995 F Date Provider Department Center 01/13/2024 [id number] MONTALVO PED [employer] No family history on file Normal [facility] Urinalysis macro (dipstick) panel (U)on 12-30-2023 Bilirubin, UA Negative Negative - 4(70) +++ mg/dL [facility] Blood, UA Negative Negative - 50 Sina/mcL [facility] Clarity, UA Clear [facility] re Color, UA Yellow [facility] Glucose, UA Negative Negative - 1999(110) ++++ mg/dL [facility] Interpretation and review of laboratory results Normal [facility] Ketones, UA Negative Negative - 160(16) ++++ mg/dL [facility] Leukocytes, UA Negative Negative - 500+++ Amos/mcL [facility] Nitrite, UA Negative Negative - Positive [facility] pH, UA 6.5 5 - 9 [facility], [facility]A Negative Negative - 1999(20) ++++ mg/dL [facility] Spec Grav, UA 1.015 1 - 1.03 [facility] Urobilinogen, UA 0.2 0.2 - 12 mg/dL [facility] UA (CLEAN/CATCH) CORRECTIONAL NURSE/GIUSEPPE RO IF IND.on 12-27-2023 BILIRUBIN URINE Negative NEGATIVE [facility] BLOOD URINE Negative NEGATIVE [facility] re Clarity (U) CLEAR CLEAR [facility] Color (U) LT. YELLOW YELLOW [facility] GLUCOSE URINE UA Negative NEGATIVE mg/dL [facility] Interpretation and review of laboratory results Abnormal [facility] Ketones Ql (U) TRACE Abnormal NEGATIVE mg/dL [facility] Leukocyte esterase Test strip Ql (U) Negative NEGATIVE [facility] NITRITE URINE Negative NEGATIVE [facility] Health care pH (U) 7.0 [pH] 5.0 - 9.0 [facility] PROTEIN URINE Negative NEG/TRACE mg/dL [facility] SPECIFIC GRAVITY URINE <=1.005 Abnormal 1.005 - 1.025 [facility] URINE MICROSCOPIC INDICATED NO [facility] UROBILINOGEN URINE 0.2 EU/dL 0.2 - 1.0 EU/dL [facility] Urinalysis macro (dipstick) panel (U)on 12-17-2023 Bilirubin, UA Negative Negative - 4(70) +++ mg/dL [facility] Blood, UA Negative Negative - 50 Sina/mcL [facility] Clarity, UA Clear [facility] re Color, UA Yellow [facility] Glucose, UA Negative Negative - 1999(110) ++++ mg/dL [facility] Interpretation and review of laboratory results Abnormal [facility] Ketones, UA Negative Negative - 160(16) ++++ mg/dL [facility] Leukocytes, UA Trace Negative - 500+++ Amos/mcL [facility] Nitrite, UA Negative Negative - Positive [facility] pH, UA 7.5 5 - 9 [facility] Protein, UA Negative Negative - 1999(20) ++++ mg/dL [facility] Spec Grav, UA 1.020 1 - 1.03 [facility] Urobilinogen, UA 0.2 0.2 - 12 mg/dL [facility] CBC with Diffon 12-09-2023 Abs. Basophil 0.09 k/uL Normal 0.00-0.20 [facility] Comment on above: Performed By: #### C P, CDP #### [facility] [address] [place], [facility] [employer] Screen Printer: Clark Mata MD Abs.Imm.Granulocyte 0.17 k/uL Normal 0.00-0.30 [facility] Comment on above: Performed By: #### C P, CDP #### [address] [place] [id number] [employer] Screen Printer: Clark Mata MD Abs.Neutrophil (Seg) 5.63 k/uL Normal 1.50-8.10 [facility] Comment on above: Performed By: #### C P, CDP #### [address] [place] [address] [employer]inter: Clark Mata MD Basophils/100 WBC (Bld) 1 % Normal 0-2 [facility] Comment on above: Performed By: #### C P, CDP #### [address] [place] [address] [employer] Screen Printer: Clark Mata MD Eosinophils (Bld) [#/Vol] 0.13 10*3/uL Normal 0.00-0.44 [facility] Comment on above: Performed By: #### C P, CDP #### [address] [place] [address] [employer] Screen Printer: Clark Mata MD Eosinophils/100 WBC (Bld) 2 % Normal 1-4 [facility] Comment on above: Performed By: #### C P, CDP #### [address] [place], [facility] [employer] Screen Printer: Clark Mata MD Erythrocyte distribution width (RBC) [Ratio] 12.7 % Normal 11.8-14.4 [facility] Comment on above: Performed By: #### C P, CDP #### [address] [place] [address] [employer] Screen Printer: Clark Mata MD Hematocrit (Bld) [Volume fraction] 36.4 % Normal 36.3-47.1 [facility] Comment on above: Performed By: #### C P, CDP #### [facility] [address] [place] [address] [place], [place] [id number] [employer] Printer: Clark Mata MD Hemoglobin (Bld) [Mass/Vol] 12.6 g/dL Normal 11.9-15.1 [facility] Comment on above: Performed By: #### C P, CDP #### [facility] [address] [place] [address] [place], [place] [id number] [employer] Printer: Clark Mata MD Immature granulocytes/100 WBC (Bld) 2 % High 0 [facility] Comment on above: Performed By: #### C P, CDP #### [address] [place], [facility] [employer] Screen Printer: Clark Mata MD Lymphocytes (Bld) [#/Vol] 1.80 10*3/uL Normal 1.10-3.70 [facility] Comment on above: Performed By: #### C P, CDP #### [address] [place], [place] [id number] [employer] Printer: Clark Mata MD Lymphocytes/100 WBC (Bld) 21 % Low 24-43 [facility] Comment on above: Performed By: #### C P, CDP #### [facility] [address] [place] [address] [place], [place] [id number] [employer] Printer: Clark Mata MD MCH (RBC) [Entitic mass] 30.4 pg Normal 25.2-33.5 [facility] Comment on above: Performed By: #### C P, CDP #### [address] [place] [address] [employer] Printer: Clark Mata MD MCHC (RBC) [Mass/Vol] 34.6 g/dL Normal 28.4-34.8 [facility] Comment on above: Performed By: #### C P, CDP #### [facility] [address] [place], [place] [address] [employer] Printer: Clark Mata MD MCV (RBC) [Entitic vol] 87.9 fL Normal 82.6-102.9 [facility] Comment on above: Performed By: #### C P, CDP #### [facility] [address] [place], [place] [address] [employer] Screen Printer: Clark Mata MD Monocytes (Bld) [#/Vol] 0.61 10*3/uL Normal 0.10-1.20 [facility] Comment on above: Performed By: #### C P, CDP #### [address] [place], [place] [address] [employer] Printer: Clark Mata MD Monocytes/100 WBC (Bld) 7 % Normal 3-12 [facility] Comment on above: Performed By: #### C P, CDP #### [address] [place], [place] [address] [employer] Screen Printer: Clark Mata MD Neutrophil (Seg) 67 % High 36-65 [facility] Comment on above: Performed By: #### C P, CDP #### [address] [place], [place] [address] [employer] Screen Printer: Clark Mata MD NRBC Automated 0.0 per 100 WBC Normal 0.0 [facility] Comment on above: Performed By: #### C P, CDP #### [address] [place], [place] [address] [employer] Screen Printer: Clark Mata MD Platelet mean volume (Bld) [Entitic vol] 10.7 fL Normal 8.1-13.5 [facility] Comment on above: Performed By: #### C P, CDP #### [address] [place] [id number] [employer] Screen Printer: Clark Mata MD Platelets (Bld) [#/Vol] 162 10*3/uL Normal 138-453 [facility] Comment on above: Performed By: #### C P, CDP #### [facility] [address] [place], [place] [id number] [employer] Screen Printer: Clark Mata MD RBC (Bld) [#/Vol] 4.14 10*6/uL Normal 3.95-5.11 [facility] Comment on above: Performed By: #### C P, CDP #### [facility] [address] [place], [place] [id number] Text[employer] Screen Printer: Clark Mata MD WBC (Bld) [#/Vol] 8.4 10*3/uL Normal 3.5-11.3 [facility] Comment on above: Performed By: #### C P, CDP #### [facility] [address] [place], [place] [id number] [employer] Screen Printer: Clark Mata MD Comp Metabolic Profon 2023 Albumin [Mass/Vol] 3.7 g/dL Normal 3.5-5.2 [facility] Comment on above: Performed By: #### C P, CDP #### [facility] [address] [place], [place] [id number] Text[employer] Screen Printer: Clark Mata MD Albumin/Glob Ratio 1.4 Normal 1.0-2.5 [facility] Comment on above: Performed By: #### C P, CDP #### [facility] [address] [place], [place] [id number] [employer] Screen Printer: Clark Mata MD Alkaline Phos 47 U/L Normal 35-104 [facility] Comment on above: Performed By: #### C P, CDP #### [facility] [address] [place], [place] [id number] Text[employer] Screen Printer: Clark Mata MD ALT [Catalytic activity/Vol] 13 U/L Normal 10-35 [facility] Comment on above: Performed By: #### C P, CDP #### [facility] [address] [place] [address] [employer] Screen Printer: Clark Mata MD Anion gap [Moles/Vol] 9 mmol/L Normal 9-16 [facility] Comment on above: Performed By: #### C P, CDP #### [facility] [address] [place] [address] Text[employer] Screen Printer: Clark Mata MD AST [Catalytic activity/Vol] 16 U/L Normal -35 [facility] Comment on above: Performed By: #### C P, CDP #### [facility] [address] [place] [address] [place], [place] [id number] Text[employer] Screen Printer: Clark Mata MD Bilirubin [Mass/Vol] 0.3 mg/dL Normal 0.00-1.20 [facility] Comment on above: Performed By: #### C P, CDP #### [facility] [address] [place], [place] [id number] [employer] Screen Printer: Clark Mata MD BUN/CRE Ratio 17 Normal 9-20 [facility] Comment on above: Performed By: #### C P, CDP #### [facility] [address] [place], [place] [id number] Text[employer] Screen Printer: Clark Mata MD Calcium [Mass/Vol] 8.7 mg/dL Normal 8.6-10.4 [facility] Comment on above: Performed By: #### C P, CDP #### [facility] [address] [place] [address] Text[employer] Screen Printer: Clark Mata MD Chloride [Moles/Vol] 104 mmol/L Normal 98-107 [facility] Comment on above: Performed By: #### C P, CDP #### [facility] [address] [place] [address] Text[employer] Screen Printer: Clark Mata MD CO2 [Moles/Vol] 21 mmol/L Normal 20-31 [facility] Comment on above: Performed By: #### C P, CDP #### [facility] [address] [place] [address] Text[employer] Screen Printer: Clark Mata MD Creatinine [Mass/Vol] 0.6 mg/dL Normal 0.50-0.90 [facility] Comment on above: Performed By: #### C P, CDP #### [facility] [address] [place] [address] [employer] Screen Printer: Clark Mata MD GFR/1.73 sq M.predicted among non-blacks MDRD (S/P/Bld) [Vol rate/Area] mL/min/{1.73_m2} Normal >60 [facility] Comment on above: Result Comment: These [...] Performed By: #### C P, CDP #### [facility] [address] [place] [address] Text[employer] Screen Printer: Clark Mata MD Glucose [Mass/Vol] 75 mg/dL Normal 74-99 [facility] Comment on above: Performed By: #### C P, CDP #### [facility] [address] [place] [address] [employer] Screen Printer: Clark Mata MD Potassium [Moles/Vol] 4.0 mmol/L Normal 3.7-5.3 [facility] Comment on above: Performed By: #### C P, CDP #### [facility] [address] [place], [place] [id number] Text[employer] Screen Printer: Clark Mata MD Protein [Mass/Vol] 6.2 g/dL Low 6.6-8.7 [facility] Comment on above: Performed By: #### C P, CDP #### [facility] [address] [place] [address] Text[employer] Screen Printer: Clark Mata MD Sodium [Moles/Vol] 134 mmol/L Low 136-145 [facility] Comment on above: Performed By: #### C P, CDP #### [facility] [address] [place], [place] [id number] Text[employer] Screen Printer: Clark Mata MD Urea nitrogen [Mass/Vol] 10 mg/dL Normal 6-20 [facility] Comment on above: Performed By: #### C P, CDP #### [facility] [address] [place] [address] [place], [place] [phone] Text[employer] Screen Printer: Clark Mata MD Lipaseon 12-09-2023 Lipase [Catalytic activity/Vol] 41 U/L Normal 13-60 [facility] Comment on above: Performed By: #### L IP #### [address] [place], [place] [id number] Text[employer] Screen Printer: Clark Mata MD UA w/Reflex Cultureon 2023 Bilirubin, SemiQt,Ur Negative Normal NEG [facility] Comment on above: Performed By: #### U RAFFY CHAUDHRYO #### [facility] [address] [place], [place] [id number] Text[employer] Screen Printer: Clark Mata MD Blood, Urine Negative Normal NEG [facility] Comment on above: Performed By: #### U AX UMICAO #### [facility] [address] [place], [place] [id number] Text[employer] Screen Printer: Clark Mata MD Clarity (U) Clear Normal CLEAR [facility] Comment on above: Performed By: #### U AX, UMICAO #### [facility] [address] [place], [place] [id number] Text[employer] Screen Printer: Clark Mata MD Color (U) Yellow Normal YEL [facility] Comment on above: Performed By: #### U AX, UMICAO #### [facility] [address] [place], [place] [id number] Text[employer] Screen Printer: Clark Mata MD Glucose Ql (U) Negative Normal NEG [facility] Comment on above: Performed By: #### U AX, UMICAO #### [facility] [address] [place] [address] [place], [place] [id number] Text[employer] Screen Printer: Clark Mata MD Ketones Ql (U) Negative Normal NEG [facility] Comment on above: Performed By: #### U AX, UMICAO #### [facility] [address] [place] [address] [place], [place] [id number] Text[employer] Screen Printer: Clark Mata MD Leukocyte esterase Test strip Ql (U) Negative Normal NEG [facility] Comment on above: Performed By: #### U AX, UMICAO #### [facility] [address] [place] [address] [place], [place] [phone] Text[employer] Screen Printer: Clark Mata MD Nitrite,Ur Negative Normal NEG [facility] Comment on above: Performed By: #### U AX, UMICAO #### [facility] [address] [place], [place] [id number] [employer] Screen Printer: Clark Mata MD PH,Ur 7.0 Normal 5.0-9.0 [facility] Comment on above: Performed By: #### U AX, UMICAO #### [facility] [address] [place], [place] [id number] Textile Screen Printer: Clark Mata MD Protein Ql (U) Negative Normal NEG [facility] in Hospital Comment on above: Performed By: #### U AX, UMICAO #### [facility] [address] [place] [address] Textile Screen Printer: Clark Mata MD Spec. [place],Ur 1.015 Normal 1.010-1.020 [facility] Comment on above: Performed By: #### U AX UMICAO #### [facility] [address] [place] [address] Textile Screen Printer: Clark Mata MD Urobilinogen,Ur Normal Normal 0.0-1.0 [facility] Comment on above: Performed By: #### U AXRAFFYO #### [facility] [address] [place] [address] Textile Screen Printer: Clark Mata MD US GALLBLADDER RUQon 024 [...] Sabi Leung MD 12/09/23 Final result Normal [facility] Urinalysis,Microon 4 Epithelial cells LM Ql (Urine sed) 0 TO 2 Normal 0-25 [facility] Comment on above: Performed By: #### U AX UMICAO #### [facility] [address] [place] [id number] Textile Screen Printer: Clark Mata MD Urine RBC's None Normal 0-2 [facility] Comment on above: Performed By: #### U AX, UMICAO #### [facility] [address] [place], [place] [id number] Textile Screen Printer: Clark aMta MD Urine WBC's 0 TO 2 Normal 0-5 [facility] Comment on above: Performed By: #### U AX, UMICAO #### [facility] [address] [place], [place] [id number] Textile Screen Printer: Clark Mata MD 12-03-2023 36 Echo order faxed over [facility] 12-02-2023 36 Called and left detailed message for patient [facility] 36 This will be fine Normal [facility] 11-24-2023 36 Patient called stating that they [facility] does not have any appointment for an echo until 32 week. She wants to know if it is okay for her to get it at 32 weeks or what else do you suggest. Please advise [facility] 11-23-2023 36 I called the Norma and I left a message on her voicemail that I would put an order in but she needs to call the [facility] scheduling line and get it scheduled in our office will fax the order to them. I asked her to schedule it for 30 weeks gestation. Please make sure that the order is faxed to [facility] scheduling. [facility] Orders Onlyon 11-23-2023 Orders Only [id number] Norma Cardenas 1995 F Date Provider Department Center 11/23/2023 CHEPE GOODSON No family history on file [facility] 11-21-2023 36 Pt called in stating that [...] next apt with Dr. Peraza on 01/12. [facility] Telephoneon 11-21-2023 Telephone [id number] Norma Cardenas 1995 F Date Provider Department Center 11/21/2023 CHEPE GOODSON Simon Krishanabel No family history on file Reason for Visit and Comments: ECHO [Other] [facility] Office Visiton 10-07-2023 Follow-up visit [id number] Norma Cardenas 1995 F Date Provider Department Center 10/07/2023 CHEPE GOODSON No family history on file Level of Service:31911 UT OFFICE/OUTPATIENT ESTABLISHED MOD MDM 30 MIN Reason for Visit and Comments: Heart Problem [54] - Transfer from [facility] - 18 wks [facility] CHG US SOFT TISSUE HEAD & NE CK [facility] Radiology Study observation (narrative) [facility] CHG US SOFT TISSUE HEAD & NE CK REAL TIME IMGE [facility] 09-22-2023 Andres Torres MD 09/23/2023 6:28 PM Ms. Cardenas was seen and examined with Dr. Hall, I independently verified the findings on US and agree with the documented report - thyroid ultrasound report appears in the notes tab. [facility] US Unspecified body regionOr dered By: Unassigned Pacs on 09-22-2023 [facility] Work Phone: US Unspecified body regionon 09-22-2023 Radiology Study observation (narrative) [facility] 36on 07-04-2023 36 Created in error [facility] 36 Scheduled an appointment October 06 at 8:30am. [facility] 36 If this patient schedules a [...] her and left her message as well. [facility] 36on 07-03-2023 36 Patient is newly (4wks) and is currently scheduled in August for her yearly visit.. She is asking if she needs to reschedule to do the 20-24 wk gestational testing. PH: [phone] Normal [facility] Telephoneon 07-03-2023 Telephone [id number] Norma Peña 1995 F Date Provider Department Center 07/03/2023 [id number] HAGER RPW PED [employer] No family history on file [facility] VZ Immunityon 06-23-2023 VZ Immunity 3.84 Normal >1.09 [facility] Comment on above: Result Comment: Interpretation: IMMUNE Reference Range: <0.91 Not Immune 0.91-1.09 Equivocal >1.09 Immune Performed By: #### V ZI #### [facility] [employer] [address] [place] [address] Textile Screen Printer: Bear Mejias MD US THYROIDon 06-03-2023 US [...] Echogenicity: Hyperechoic or isoechoic (1 point) Shape: Fhoou-nmgo-vfzl (0 points) Margin: Smooth (0 points) Echogenic [...] using ACR TI-RADS. (JACR July 2016) Normal [facility] FREE T4on 05-23-2023 Free T4 [Mass/Vol] 1.0 ng/dL Normal 0.9-1.8 [facility] Comment on above: Order Comment: Locat ion: Performed By: #### L [id number], [id number] #### ANIL PRESSLEY ([id number]) [facility] ([facility]) [address], [address] [place] [address] TSHon 05-23-2023 TSH 2.599 MIU/mL Normal 0.550-4.780 [facility] Comment on above: Order Comment: Locat ion: Performed By: #### L AB127, [id number] #### ANIL PRESSLEY ([id number]) [facility] ([facility]) [address], [address] [place] [address] RF videography Hypopharynx a nd Esophagus Views [...] report for further details and dietary recommendations. [facility] Radiology Study observation (narrative) [facility] RF videography Hypopharynx a nd Esophagus Views W liquid and paste contrast PO during swallowingOrdered By: Gisele Hardy on 01-09-2023 [facility] Work Phone: XR FLUORO MODIFIED BARIUM SW [...] for further details and dietary recommendations. Normal [facility] CT NECK WITH CONTRASTon 10-1 CT NECK [...] error, please notify the sender immediately at [phone] and permanently delete the original report and destroy any copies or printouts. Normal [facility] [employer] Cytology Reporton 2022 [employer] Cytology Report Clinical Information Specimen Collection Date: [...] smears in the future. 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 Patient reports some pain [...] and the last time she saw her textile pin worker thought there might have been some dilation [...] will send patient for preconceptual counseling with [facility] because of her cardiac abnormality Follow-up [...] intractable, w/o (more content not included)... Normal [facility] Culture, Urineon 08-04-2020 RPT Microbiology results Abnormal [facility] Comment on above: Order Comment: Items in this order include: Culture, Urine Testing Performed By: [facility] [place] [address] Dr. Anil Pressley, Textile Screen Printer Result Comment: [place] Count: 10,000-25,000 CFU/ML Final Result: Escherichia [...] R Performed By: #### C 734 #### [facility] [address] [place] [address] Culture, Urineon 03-14-2020 RPT Microbiology results Abnormal [facility] Comment on above: Order Comment: Items in this order include: Culture, Urine Testing Performed By: [facility] [place] [address] Dr. Shaunna Cummins, Textile Screen Printer Result Comment: [place] Count: >100,000 CFU/ML Final Result: Escherichia [...] R Performed By: #### C 734 #### [facility], [facility]. [address] [place] [address] Culture, Urineon 12-14-2019 RPT Microbiology results Abnormal [facility] Comment on above: Order Comment: Items in this order include: Culture, Urine Testing Performed By: [facility] [address] [place] [address] Dr. Shaunna Cummins, Textile Screen Printer Result Comment: [place] Count: 50,000-75,000 CFU/ML Final Result: Escherichia [...] Trimethoprim/Sulfamethoxaz >=320 R Performed By: #### C 731 #### [facility] [address] [place] [address] Vital Signs Date Time Vital Sign Value Performing Clinician Facility 01-27-2024 10:23-0500 Body mass index (BMI) [Ratio] 28.58 kg/m2 [facility] 01-27-2024 10:23-0500 Body weight 75.52 kg [facility] Initial [facility] 01-27-2024 10:23-0500 Diastolic blood pressure 74 mm[Hg] [facility] Initial [facility] 01-27-2024 10:23-0500 Systolic blood pressure 110 mm[Hg] [facility] Initial [facility] 01-14-2024 10:57-0500 Body mass index (BMI) [Ratio] 28.15 kg/m2 Ella SQUIRES Work Phone: [facility] 01-14-2024 10:57-0500 Body weight 74.39 kg Ella SQUIRES Work Phone: [facility] 01-14-2024 10:57-0500 Diastolic blood pressure 64 mm[Hg] Ella SQUIRES Work Phone: [facility] 01-14-2024 10:57-0500 Systolic blood pressure 102 mm[Hg] Ella SQUIRES Work Phone: [facility] 01-13-2024 13:51-0500 Body height 162.6 cm Duarte Bernard MD Work Phone: [facility] 01-13-2024 13:51-0500 Body mass index (BMI) [Ratio] 28.12 kg/m2 Duarte Bernard MD Work Phone: [facility] 01-13-2024 13:51-0500 Body weight 74.3 kg Duarte Bernard MD Work Phone: [facility] 01-13-2024 13:51-0500 Diastolic blood pressure 75 mm[Hg] Duarte Bernard MD Work Phone: [facility] 01-13-2024 13:51-0500 Heart rate 79 /min Duarte Bernard MD Work Phone: [facility] 01-13-2024 13:51-0500 Systolic blood pressure 109 mm[Hg] Duarte Bernard MD Work Phone: [facility] 12-30-2023 10:58-0400 Body mass index (BMI) [Ratio] 28.12 kg/m2 Sammy Stu DO Work Phone: [facility] 12-30-2023 10:58-0400 Body weight 74.3 kg Sammy Stu DO Work Phone: [facility] 12-30-2023 10:58-0400 Diastolic blood pressure 64 mm[Hg] Sammy Stu DO Work Phone: [facility] 12-30-2023 10:58-0400 Systolic blood pressure 100 mm[Hg] Sammy Stu DO Work Phone: [facility] 12-17-2023 10:27-0400 Body mass index (BMI) [Ratio] 27.6 kg/m2 Ella SQUIRES Work Phone: [facility] 12-17-2023 10:27-0400 Body weight 72.94 kg Ella SQUIRES Work Phone: [facility] 12-17-2023 10:27-0400 Diastolic blood pressure 64 mm[Hg] Ella Nicole PA Work Phone: [facility] 12-17-2023 10:27-0400 Systolic blood pressure 100 mm[Hg] Ella Nicole PA Work Phone: [facility] 09-22-2023 13:37-0400 Body height 162.6 cm Latrice Hall MD Work Phone: [facility] 09-22-2023 13:37-0400 Body mass index (BMI) [Ratio] 25.4 kg/m2 Latrice Hall MD Work Phone: [facility] 09-22-2023 13:37-0400 Body temperature 97.3 [degF] Latrice Hall MD Work Phone: [facility] 09-22-2023 13:37-0400 Body weight 67.13 kg Latrice Hall MD Work Phone: [facility] 09-22-2023 13:37-0400 Diastolic blood pressure 62 mm[Hg] Latrice Hall MD Work Phone: [facility] 09-22-2023 13:37-0400 Systolic blood pressure 114 mm[Hg] Latrice Hall MD Work Phone: [facility] 12-24-2022 16:30-0400 Body height 162.6 cm Reganemperatriz Ellisen CREATIVE ARTS THERAPIST-PLANING MACHINE OPERATOR Work Phone: [facility] 12-24-2022 16:30-0400 Body mass index (BMI) [Ratio] 23.17 kg/m2 Regan Edinson CREATIVE ARTS THERAPIST-PLANING MACHINE OPERATOR Work Phone: [facility] 12-24-2022 16:30-0400 Body weight 61.24 kg Regan Edinson CREATIVE ARTS THERAPIST-PLANING MACHINE OPERATOR Work Phone: [facility] 12-24-2022 16:30-0400 Diastolic blood pressure 68 mm[Hg] Regan Ellisen CREATIVE ARTS THERAPIST-PLANING MACHINE OPERATOR Work Phone: [facility] 12-24-2022 16:30-0400 Heart rate 71 /min Regan Neves CREATIVE ARTS THERAPIST-PLANING MACHINE OPERATOR Work Phone: [facility] 12-24-2022 16:30-0400 Systolic blood pressure 108 mm[Hg] Regan Edinson CREATIVE ARTS THERAPIST-PLANING MACHINE OPERATOR Work Phone: [facility] 12-24-2022 11:37-0400 Body mass index (BMI) [Ratio] 23.22 kg/m2 Emile Armas MD Work Phone: [facility] 12-24-2022 11:37-0400 Body temperature 98.2 [degF] Emile Armas MD Work Phone: [facility] 12-24-2022 11:37-0400 Body weight 61.37 kg Emile Armas MD Work Phone: [facility] 12-24-2022 11:37-0400 Diastolic blood pressure 78 mm[Hg] Emile Armas MD Work Phone: [facility] 12-24-2022 11:37-0400 Heart rate 73 /min Emile Armas MD Work Phone: [facility] 12-24-2022 11:37-0400 Respiratory rate 16 /min Emile Armas MD Work Phone: [facility] 12-24-2022 11:37-0400 SaO2% (BldA) [Mass fraction] 99 % Emile Armas MD Work Phone: [facility] 12-24-2022 11:37-0400 Systolic blood pressure 123 mm[Hg] Emile Armas MD Work Phone: [facility] Encounters Encounter Date Encounter Type Care Provider Facility Start: 01-27-2024 End: 01-27-2024 Initial care visit [facility] Initial [facility] Comment on above: GA: 34w1d Start: 01-26-2024 End: 01-26-2024 ambulatory SAMMY STU Not Available Start: 01-14-2024 End: 01-14-2024 Bamboo flowsheet Ella [...] Bernard MD Work Phone: Maternal- Medicine at [facility] Comment on above: Ascending aorta dila tion (CMS-HCC) (Primary Dx); 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 Start: 01-13-2024 End: 01-13-2024 ambulatory SAMMY BOUDREAUXO [facility] Start: 01-13-2024 End: 01-13-2024 ambulatory [facility] Start: 12-30-2023 End: 12-30-2023 Bamboo flowsheet Sammy Stu DO Work Phone: [facility] Start: 12-30-2023 End: 12-30-2023 Bamboo flowsheet Sammy Stu DO Work Phone: [facility] Start: 12-30-2023 End: 12-30-2023 ambulatory SAMMY PERAZA Not Available Start: 12-30-2023 End: 12-30-2023 flow sheet Sammy Stu DO Work Phone: [facility] Comment on above: 30 weeks gestation o f ; Third trimester ; Aortic stenosis of mother during ; Hypothyroid in , antepartum (CMS/HCC); Vaginal discharge during in second trimester; Encounter for screening for cervical length Start: 12-29-2023 End: 12-29-2023 ambulatory CHEPE Pham [facility] Start: 12-27-2023 End: 12-27-2023 Clinisync Result Encounter Sammy Stu DO Work Phone: [facility] External Department Unsolicited Start: 12-27-2023 End: 12-27-2023 Clinisync Result Encounter Sammy Stu DO Work Phone: [facility] External Department Unsolicited Start: 12-17-2023 End: 12-17-2023 Bamboo flowsheet Ella Bonnie PA Work Phone: [facility] Start: 12-17-2023 End: 12-17-2023 Bamboo flowsheet Ella SQUIRES Work Phone: [facility] Start: 12-17-2023 End: 12-17-2023 flow sheet Ella SQUIRES Work Phone: [facility] Comment on above: 28 weeks gestation o f ; Third trimester Start: 12-17-2023 End: 12-17-2023 ambulatory ELLA NICOLE Not Available Start: 12-09-2023 End: 12-09-2023 Emergency department patient visit [facility] Start: 11-26-2023 End: 11-26-2023 ambulatory ELLA NICOLE Not Available Start: 11-18-2023 End: 11-18-2023 ambulatory [facility] Start: 10-31-2023 End: 10-31-2023 ambulatory [facility] Start: 10-30-2023 End: 10-30-2023 ambulatory SAMMY STU Not Available Start: 10-20-2023 End: 10-20-2023 ambulatory [facility] Start: 10-07-2023 End: 10-07-2023 ambulatory [facility] Start: 09-30-2023 End: 09-30-2023 ambulatory ELLA NICOLE Not Available Start: 09-22-2023 End: 09-22-2023 Office outpatient new 45 minutes Latrice Hall MD Work Phone: [facility]in[facility] Comment on above: Thyroid nodule (Prim subhash Dx) Start: 09-22-2023 ambulatory LATRICE HALL Facilit y:[facility] Start: 09-01-2023 End: 09-01-2023 ambulatory SAMMY STU Not Available Start: 07-31-2023 End: 07-31-2023 ambulatory DI PANCHAL Not Available Start: 06-20-2023 End: 06-20-2023 ambulatory [facility] Start: 06-02-2023 ambulatory HERVE laboy:[facility] Start: 06-02-2023 End: 06-02-2023 Subsequent hospital visit by physician Herve Jimenez MD Work Phone: Department of Radiology Comment on above: Arrived Start: 05-27-2023 End: 05-27-2023 ambulatory DI PANCHAL Not Available Start: 05-23-2023 End: 05-23-2023 ambulatory HERVE JIMENEZ [facility] Start: 01-09-2023 End: 01-09-2023 Subsequent hospital visit by physician Emile Armas MD Work Phone: Department of Radiology Comment on above: Arrived Start: 01-09-2023 ambulatory HERVE Benavides ility:[facility] Start: 12-24-2022 End: 12-24-2022 Subsequent hospital visit by physician Regan Neves CREATIVE ARTS THERAPIST-PLANING MACHINE OPERATOR Work Phone: [facility] [place] Comment on above: Arrived Start: 12-24-2022 ambulatory REGAN NEVES Facilit y:[facility] Start: 12-24-2022 End: 12-24-2022 Office outpatient new 45 minutes Emile Armas MD Work Phone: Department of Otolaryngology Comment on above: Lymphadenopathy (Alicia ramin Dx) Start: 12-24-2022 ambulatory SELF SELF Facility:[facility] Start: 11-20-2022 End: 11-20-2022 Office consultation new/estab patient 60 min Belle Jose DO Work Phone: Maternal Medicine [facility] [place] Comment on above: Encounter for precon ception consultation (Primary Dx); Bicuspid aortic valve Start: 11-20-2022 ambulatory HERVE Benavides ility:[facility] Start: 08-15-2022 End: 08-15-2022 Subsequent hospital visit by physician Chepe Peraza MD Work Phone: Cardiovascular Imaging Lab [facility] Comment on above: Canceled (Cancel Ligia son Not Listed - Please provide detailed information) Start: 05-21-2022 End: 05-22-2022 ambulatory Jake Foster MD Facility:[facility] Start: 06-05-2021 End: 06-05-2021 Postop follow up visit related to original px Charlotte Cárdenas MD Work Phone: [facility] [place] Comment on above: Postop check (Primar [...] Work Phone: Start: 12-27-2023 [facility] UA (CLEAN/CATCH) CORRECTIONAL NURSE/MICRO IF IND. Sammy Stu DO Work Phone: [...] esop hagus single contrast study Regan Neves CREATIVE ARTS THERAPIST-PLANING MACHINE OPERATOR Work Phone: Plan of Treatment Date Care Activity Detail Author Start: 01-07-2034 DTaP,Tdap and Td Vaccines (6 - Td or Tdap) DTaP,Tdap and Td Vaccines (6 - Td or Tdap) [facility] Start: 09-29-2026 Screening for malign ant neoplasm of cervix Pap Smear [facility] Start: 01-26-2025 Adult BMI Screening Adult BMI Screen ing [facility] Start: 01-12-2025 Adult BMI Screening Adult BMI Screen ing [facility] Start: 01-12-2025 Tobacco Screening Tobacco Screening [facility] Start: 05-28-2024 End: 05-28-2024 Patient encounter procedure 05/28/2024 10:40 AM EDT Office Visit [facility] [address] [facility] [place] [address] Di Panchal, PA [address] [place] [address] [facility] Start: 02-13-2024 End: 02-13-2024 Patient encounter procedure [facility] Start: 02-12-2024 End: 02-12-2024 Patient encounter procedure 02/12/2024 2:00 PM EST Appointment Jodie Johnston [facility] [address] [place] [phone] Jodie Johnston [facility] Start: 02-11-2024 End: 02-11-2024 Telemedicine consultation with patient 02/11/2024 8:00 AM EST Telemedicine Maternal- Medicine at [facility] [address] [place] [phone] Duatre Bernard MD [address] [place] [address] M[facility]- Medicine at [facility] Start: 01-27-2024 End: 01-27-2024 ambulatory 01/27/2024 10:30 AM EST Initial [facility] [address] [place] [id number] [facility] Start: 01-26-2024 End: 04-27-2024 US MFM with or without consult US MFM with or without consult Imaging Routine Bicuspid aortic valve Congenital heart disease Ascending aorta dilation (CMS-HCC) Maternal cardiovascular disease affecting in third trimester Expected: 01/26/2024, Expires: 04/27/2024 [facility] Work Phone: Comment on above: Expected: 01/26/2024 , Expires: 04/27/2024 Start: 01-26-2024 End: 01-26-2024 Patient encounter procedure 01/26/2024 1:30 PM EST Routine [facility] [address] [place] [phone] Sammy Peraza DO [address] [place], [place] [id number] [facility] Start: 01-14-2024 End: 01-14-2024 Patient encounter procedure 01/14/2024 10:30 AM EST Routine [facility] [address] [phone] Ella Nicole PA [address] [place] [address] [facility] Start: 12-30-2023 End: 12-29-2024 US biophysical profile w non stress test US biophysical profile w non stress test Imaging Routine Aortic stenosis of mother during Hypothyroid in , antepartum (CMS/HCC) Expected: 12/30/2023 (Approximate), Expires: 12/29/2024 [facility] Work Phone: Comment on above: Expected: 12/30/2023 (Approximate), Expires: 12/29/2024 Start: 12-30-2023 End: 12-29-2024 US for US OB AMNIOTIC FLUID VOLUME Imaging Routine Vaginal discharge during in second trimester Expected: 12/30/2023 (Approximate), Expires: 12/29/2024 [facility] Comment on above: Expected: 12/30/2023 (Approximate), Expires: 12/29/2024 Start: 12-30-2023 End: 12-29-2024 US Pelvis transvaginal US OB transvaginal Imaging Routine Encounter for screening for cervical length Expected: 12/30/2023 (Approximate), Expires: 12/29/2024 [facility] Comment on above: Expected: 12/30/2023 (Approximate), Expires: 12/29/2024 Start: 12-30-2023 End: 12-30-2023 Patient encounter procedure 12/30/2023 10:30 AM EDT Routine [facility] [address] [place] [phone] Sammy Peraza DO [address] [place], [facility] Start: 12-17-2023 End: 12-17-2023 Patient encounter procedure 12/17/2023 10:20 AM EDT Routine [facility] [address] [place] [phone] Ella Nicole PA [address] [place], [facility] Arrived [facility] Comment on above: Arrived Start: 11-09-2023 Influenza vaccination O [facility] Start: 06-03-2023 ambulatory Ambulatory Facility:[facility]li[facility] Villanue[facility] Start: 01-09-2023 End: 01-09-2023 ambulatory 01/09/2023 8:30 AM EDT Rehab Services Visit [facility] [address] 1st [place] [id number] [facility] Start: 01-09-2023 End: 01-09-2023 Patient encounter procedure 01/09/2023 8:30 AM EDT Appointment Department of Radiology [address] 1[address] [place] [phone] Department of Radiology Start: 12-24-2022 End: 12-25-2023 CT Neck W contrast IV [facility] Comment on above: Expected: 12/24/2022 , Expires: 12/25/2023 1 Occurrences starti ng 12/24/2022 until 12/24/2022 Start: 12-24-2022 End: 12-25-2023 RF videography Hypopharynx and Esophagus Views W liquid and paste contrast PO during swallowing XR FLUORO MODIFIED BARIUM SWALLOW-ENT ONLY Imaging Routine Lymphadenopathy Expected: 12/24/2022, Expires: 12/25/2023 [facility] Comment on above: Expected: 12/24/2022 , Expires: 12/25/2023 Start: 11-08-2022 COVID-19 VACCINE ( season) COVID-19 VACCINE () [facility] Start: 11-08-2022 Influenza vaccination O [facility] Start: 11-08-2020 Influenza vaccination INFLUENZA VACC INE (#1) [facility] Start: 03-27-2018 End: 03-27-2018 Ambulatory 03/27/2018 Appointment Ultrasound Darryn eKnnedy, PLANING MACHINE OPERATOR [address] [place] [address] [phone] Department of Radiology Start: 03-18-2018 End: 03-18-2019 US scan of neck US NECK SOFT TISSUE Routine Other fatigue Lymphadenopathy of head and neck Expected: 03/18/2018, Expires: 03/18/2019 [facility] Work Phone: Comment on above: Expected: 03/18/2018 , Expires: 03/18/2019 Start: 11-08-2017 Influenza vaccination INFLUENZA VACC INE (#1) [facility] Work Phone: Start: 2015 Screening for malign ant neoplasm of cervix [facility] Start: 2013 Hepatitis B vaccination HEP B VACCINE (1 of 3 - 19+ 3-dose series) [facility] Start: 2013 Third diphtheria, tetanus and acellular pertussis (DTaP) vaccination TDAP (ADULT) [facility] Start: 02-04-2012 Adult BMI Follow Up Plan Adult BMI F ollow Up Plan [facility] Start: 02-04-2012 GONORRHEA SCREEN GONORRHEA SCREEN [facility] Work Phone: Start: 02-04-2012 Tetanus vaccination TETANUS [facility] Start: 2010 Screening for Chlamy kyle trachomatis CHLAMYDIA SCREEN [facility] Work Phone: Start: 2009 HIV screening HIV SCREENING DISCUSSI ON [facility] Start: 2007 HIV screening HIV SCREENING DISCUSSI ON [facility] Work Phone: Start: 2006 Depression Screening Depression Scre ening [facility] Start: 03-13-2005 Tetanus vaccination TETANUS [facility] Start: 2005 Vaccination for jelly n papillomavirus HPV VACCINE ADOL (1 - Female 3-dose series) [facility] Work Phone: Start: 02-04-2000 PNEUMOCOCCAL VACCINE SERIES (1 of 2 - PCV) PNEUMOCOCCAL VACCINE SERIES (1 of 2 - PCV) [facility] Start: 1999 COVID-19 VACCINE (1) COVID-19 VACCIN E (1) [facility] Start: 1994 COVID-19 VACCINE (#1) COVID-19 VACCI NE (#1) [facility] Start: 1994 Hepatitis C antibody , confirmatory test HEPATITIS C VIRUS SCREENING [facility] Start: 1994 Hepatitis C screening HEPATITI S C VIRUS SCREENING [facility] CHLAMYDIA TRACHOMATI S (GENITO/STI) CHLAMYDIA TRACHOMATIS (GENITO/STI) Lab Routine Vaginal discharge during in second trimester Ordered: 12/30/2023 [facility] Comment on above: Ordered: 12/30/2023 End: 05-25-2024 nonstress test - Maternal Medicine nonstress test - Maternal Medicine OB Routine Bicuspid aortic valve Congenital heart disease Ascending aorta dilation (CMS-HCC) Maternal cardiovascular disease affecting in third trimester Per Treatment Plan for 6 Occurrences starting 01/26/2024 until 05/25/2024 [facility] Comment on above: Per Treatment Plan f or 6 Occurrences starting 01/26/2024 until 05/25/2024 Laryngoscopy flexibl e diagnostic UT LARYNGOSCOPY FLEXIBLE DIAGNOSTIC UT Charge Routine Lymphadenopathy Ordered: 12/24/2022 [facility] Comment on above: Ordered: 12/24/2022 Neisseria gonorrhoea e DNA [Presence] in Unspecified specimen by VANESSA with probe detection Neisseria gonorrhea DNA probe, direct Lab Routine Vaginal discharge during in second trimester Ordered: 12/30/2023 [facility] Comment on above: Ordered: 12/30/2023 SURESWAB(R) ADVANCED VAGINITIS PLUS, TMA SURESWAB(R) ADVANCED VAGINITIS PLUS, TMA Pathology and Cytology Routine Vaginal discharge during in second trimester Ordered: 12/30/2023 [facility] Comment on above: Ordered: 12/30/2023 End: 06-02-2023 US Thyroid gland [facility] Work Phone: Comment on above: 1 Occurrences starti ng 06/02/2023 until 06/02/2023 Immunizations Immunization Date Immunization Notes Care Provider [facility] 12-25-2022 influenza virus vaccine, unspecified formulation Latrice Hall MD Work Phone: [facility] 01-08-2016 influenza virus vaccine, unspecified formulation Charlotte Cárdenas MD Work Phone: [facility] Payers Date Payer Category Payer Unknown [id number] 2023 Commercial [place] [address] [id number] 2023 Managed Care HMO (unspecified) [id number] 2023 Private Health Insurance ELIZABETHParamjitBEBA ALEGRE [id number] 2023-Present [address] [place] [address] [id number] 2023 Private Health Insurance [id number] 2021 Unknown [id number] 2020 Unknown [id number] 1.13.17 [id number] 2020 Unknown [id number] 1994 Unknown [id number] 2.16.840.1.694476.3.57 9.2.196 1994 Unknown [id number] 2.16.840.1.956741.3.57 9.2.196 1994 Unknown [id number] 2.16.840.1.313025.3.57 9.2.196 1994 Unknown [id number] 2.16.840.1.940979.3.57 9.2.1260 1994 Unknown [id number] 2.16.840.1.716952.3.57 9.2.594 1994 Unknown [id number] 2.16.840.1.828209.3.57 9.2.594 1994 Unknown [id number] 2.16.840.1.297948.3.57 9.2.594 1994 Unknown [id number] 2.16.840.1.313395.3.57 9.2.594 1994 Unknown [id number] 2.16.840.1.910290.3.57 9.2.594 1994 Unknown [id number] 2.16.840.1.725936.3.57 9.2.594 1994 Unknown [id number] 2.16.840.1.813486.3.57 9.2.594 1994 Unknown [id number] 2.16.840.1.184741.3.57 9.2.594 1994 Unknown [id number] 2.16.840.1.234343.3.57 9.2.173 1994 Unknown [id number] 2.16.840.1.298538.3.57 9.2.173 1994 Unknown [id number] 2.16840.1.874716.3.57 9.2.1286 1994 Unknown [id number] 2.16840.1.187936.3.57 9.2.1286 1994 Unknown [id number] 2.16840.1.977847.3.57 9.2.1286 1994 Unknown [id number] 2.16840.1.086726.3.57 9.2.1286 1994 Unknown [id number] 2.16.840.1.494177.3.57 9.2.1286 1994 Unknown [id number] 2.16840.1.544581.3.57 9.2.1286 1994 Unknown [id number] 2.16840.1.233055.3.57 9.2.1286 1994 Unknown [id number] 2.16.840.1.992505.3.57 9.2.1286 1994 Unknown [id number] 2.16.840.1.828855.3.57 9.2.1259 1994 Unknown [id number] 2.16.840.1.590909.3.57 9.2.1259 1994 Unknown [id number] 2.16840.1.243376.3.57 9.2.1259 1994 Unknown [id number] 2.16.840.1.309989.3.57 9.2.1258 1994 Unknown [id number] 2.16.840.1.432989.3.57 9.2.1259 1994 Unknown [id number] 2.16.840.1.699082.3.57 9.2.1258 1994 Unknown [id number] 2.16.840.1.016981.3.57 9.2.1259 1994 Unknown [id number] 2.16.840.1.067410.3.57 9.2.1258 1994 Unknown [id number] 2.16.840.1.112124.3.57 9.2.1259 1994 Unknown [id number] 2.16.840.1.367639.3.57 9.2.1259 Social History Date Type Detail Facility Tobacco smoking stat us NHIS Unknown if ever smoked [facility] Work Phone: Start: 1995 Sex Assigned At Not on file [facility] Work Phone: Start: 04-21-2018 End: 09-09-2023 Tobacco smoking status NHIS Never smoked tobacco [facility] Start: 04-21-2018 End: 09-09-2023 Tobacco use and exposure Smokeless tobacco non-user [facility] Start: 06-05-2021 End: 09-22-2023 Alcohol intake Current drinker of alcohol (finding) [facility] Start: 04-15-2020 History SDOH Alcohol Frequency 2 [facility] Start: 04-15-2020 History SDOH Alcohol Std Drinks 1 [facility] Start: 05-10-2021 History SDOH Alcohol Comment 1-2 drinks per month [facility] Start: 05-26-2021 End: 06-05-2021 Exposure to SARS-CoV-2 (event) Not sure [facility] Start: 04-15-2020 End: 04-19-2020 History of Social function [facility] Start: 04-15-2020 End: 04-19-2020 Alcohol Use Disorder Identification Test - Consumption [AUDIT-C] [facility] How often to you hav e a drink containing alcohol? Monthly or less [facility] How many standard dr inks containing alcohol do you have on a typical day? 1 or 2 [facility] How often do you hav e 6 or more drinks on 1 occasion? Never [facility] Start: 03-16-2017 Gender identity Identifies as female gender (finding) [facility] Adolescent depressio n screening assessment 0 [facility] Start: 1994 Sex assigned at Female [facility] Start: 11-26-2023 End: 01-13-2024 Alcoholic beverage intake Ex-drinker (finding) [facility] Start: 06-16-2023 [facility] Start: 06-29-2020 Alcohol Comment rarely [facility] Start: 10-11-2014 Sex Female (finding) [facility] Clinical Notes 06-05-2021 to 01-27-2024 Karina Trinh DO - 01/27/2024 10:30 AM Krista Joseph MD - 01/27/2024 10:30 AM Vicky Stephens RN - 01/27/2024 10:30 AM TAVIA Cota - 01/14/2024 10:30 AM ESTPatient Instructions Note Date & Type Note Facility 01-27-2024 History of Present illness Narrative [facility] Initial High Risk Obstetrics Visit Initial HROB Visit 34w1d Dated by: 8w5d US consistent with LMP Is transferring from other provider Records have been received/reviewed Patient Active Problem List Diagnosis Bicuspid aortic valve Palpitations Ocular migraine Dizziness Congenital heart disease Ascending aorta dilation ([facility]-H[facility]) Current Outpatient Medications on File Prior to Visit Medication Sig Dispense Refill norgestimate-ethinyl estradioL (ORTHO TRI-CYCLEN,TRINESSA) 0.18/0.215/0.25 mg-35 mcg (28) per tablet Take 1 tablet by mouth. (Patient not taking: Reported on 05/21/2022) no115/iron/folic acid ( 19 ORAL) Take by mouth. No current facility-administered medications on file prior to visit. Today: Reports good FM. Denies SROM, bleeding. Pt has been having contractions since 29w. She has been off of work and plans to return at 35w. She still feels contractions every day. 4-5 days a week she can have 4-5 contractions in 1hr. This lasts for most of the day. Today she reports no contractions. Yesterday she had 5 total. Still having pain in right rib radiating to back. Has had a workup at the ED including RUQ US and renal US which were negative. Labs were negative. Allergies Allergen Reactions Doxycycline ulercative esophagus Amoxicillin Clarithromycin Clindamycin ulcerated esophagus Clindamycin Doxycycline Erythromycin Spironolactone Amoxicillin Rash Biaxin [Clarithromycin] Rash Past Medical History: Diagnosis Date Bicuspid aortic valve Thyroid disease History of Thrombotic event no History of Asthma no History of HSV, genital no Diabetes no Hypertension no Past Surgical History: Procedure Laterality Date ANGIOGRAM chest CHOLECYSTECTOMY TONSILLECTOMY Family History Problem Relation Age of Onset Cancer Father Seizures Brother Hypertension Paternal Aunt Hyperlipidemia Paternal Aunt Breast cancer Paternal Aunt Hypertension Maternal Grandfather Hypertension Paternal Grandmother Arrhythmia Mother afib on medcation Heart defect Mother mitral valve prolapse Clotting disorder Father Clotting disorder Brother Seizures Brother Clotting disorder Brother Diabetes Neg Hx Heart attack Neg Hx Asthma Neg Hx Sudden Neg Hx Stroke Neg Hx High Cholesterol Neg Hx Thyroid Issues Neg Hx OB History Para Term AB Living 1 0 0 0 0 0 SAB IAB Ectopic Multiple Live Births 0 0 0 0 0 # Outcome Date GA Lbr Randy/2nd Weight Sex Type Anes PTL Lv 1 Current Willing to receive blood products, if indicated yes Pets in household yes, 1 cat PREECLAMPSIA SCREEN ([place] Preventive Services Task Force) Patient is at high risk if 1 or more factors present. Incidence of preeclampsia is >= 8%: Prior preeclampsia no Multiple gestation no Chronic hypertension no Type 1 or 2 diabetes no Renal disease no Autoimmune disease (Lupus, APLS) no Patient is at moderate risk if 2 or more risk factors are present: Nulliparity yes Obesity (BMI >= 30) no Family history of preeclampsia no (Mother, sister) Black race no Lower income no (AA, low socioeconomic status) Age >= 35 no Personal history factor no (Previous SGA, adverse outcome, > 10 years from last ) Assisted reproductive technology no Genetic History--see Flow Sheet Congenital anomaly no Cardiac defect yes Chromosomal abnormality no Thrombotic event (1st degree relative) dad with DVT. Family h/o of factor V leiden Social History Lives with FOB is involved. 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 Education level: bachelors of science Safe in relationship: yes Access to food: yes Review of Systems - General: Fever/ Chills no HEENT Rhinorrhea no Sore Throat no CV Chest Pain no Palpitations no Pulm: Shortness of Breath no Persistent cough no Wheezing no GI Nausea no Vomiting no Heartburn yes, takes pepcid prn Diarrhea no Constipation no Extr: Edema no Dysuria no Hematuria no Mood: good, stable PE VS: 110/74 General Alert, NAD HEENT: Normocephalic Neck: Supple with out thyromegaly Lungs: CTA &P Back: Without spinal, paraspinal or CVAT COR: RRR without m/g/r Abdomen: Soft, NT FHTs: 131 FH: 33 Extr: Edema: none Labs: labs have been done and have been reviewed with patient Rh positive Last cervical cytology in [facility]- Pt reports getting on September 30, 2023. Showed reports on phone but no results. 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 at 34w1d Maternal aortic bicuspid aortic valve with mild post dilated valvular aortic dilation in the ascending aorta Echo 12/29/23: Bicuspid aortic valve. Trivial to mild aortic stenosis, peak instantaneous systolic pressure gradient of 16mmHg. Moderate to severely dilated ascending aorta (unchanged). Mildly dilated aortic root. Trivial aortic valve insufficiency. Trivial to mild mitral valve insufficiency. Normal biventricular systolic function 2022 Cardiac MRI: Left sided aortic arch with normal branching pattern; the left vertebral artery appears to arise directly from the aortic arch. Dilated ascending aorta measuring 3.9 cm; with remaining measurements below. Patent proximal celiac and superior mesenteric arteries. S/p MFM referral: candidate for vaginal delivery. 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 Delivery between 39-40w. Telemetry in labor and 24hrs PP. 2nd stage assist with forceps or vacuum (per Dr. Crowley note). Weekly DVP weekly NST starting at 32w. Growth Q4w. Next would be in 2 weeks. [facility] testing [facility]: recommends passive 2nd stage delivery with assist. Repeat echo on 02/12/24 Echogenic cardiac focus and choroid plexus cyst in the fetus Pt declines further genetic screening H/o possible hypothyroidism No future testing or ultrasound required per Endo. Endocrine said does not have a thyroid cyst or thyroid problems. TSH: 2.599 T4 (05/23/23) contractions CL 01/25: 4.9cm , closed per pt PNC Tdap already given RSV vaccine recommended. Not available in clinic. Declines. Flu vaccine recommended and COVID Vaccine status:Recommendations and education provided. D. Return precautions given including LOF, VB, persistent contractions, dec movement, cardiac symptoms. E. Will reach out to [facility] for 28w labs, 1hr gtt, pap results etc Discussed with patient signs/symptoms of influenza and COVID 19 and the need to contact us so that we can evaluate and possibly start medication. RTC 2 weeks in HROB Note to patient: The Century Cures Act makes medical notes like these available to patients in the interest of transparency. However, be advised this is a medical document. It is intended as peer to peer communication. It is written in medical language and may contain abbreviations or verbiage that are unfamiliar. It may appear blunt or direct. Medical documents are intended to carry relevant information, facts as evident, and the clinical opinion of the practitioner. [facility] Initial High Risk Obstetrics Visit Initial HROB Visit CC: transfer of care 34w0d Dated by: 8 week US consistent with LMP Is transferring from other provider Records have been received/reviewed Patient Active Problem List Diagnosis Bicuspid aortic valve Palpitations Ocular migraine Dizziness Congenital heart disease Ascending aorta dilation ([facility]) Hypothyroidism affecting care in third trimester Current Outpatient Medications on File Prior to Visit Medication Sig Dispense Refill norgestimate-ethinyl estradioL (ORTHO TRI-CYCLEN,TRINESSA) 0.18/0.215/0.25 mg-35 mcg (28) per tablet Take 1 tablet by mouth. (Patient not taking: Reported on 05/21/2022) no115/iron/folic acid ( 19 ORAL) Take by mouth. No current facility-administered medications on file prior to visit. Today: Good FM. Denies SROM, bleeding, persistent contractions Maternal cardiac disease Denies chest pain, AVENDANO, shortness of breath, limitation of activity, palpitations. No change in tolerance of activities. PMH/PSH/FH/Soc/Meds/Allergies Reviewed and Notable for: Bicuspid aortic valve with moderate to severe dilation of ascending aorta. Followed by Dr. Peraza OB History Para Term AB Living 1 0 0 0 0 0 SAB IAB Ectopic Multiple Live Births 0 0 0 0 0 # Outcome Date GA Lbr Randy/2nd Weight Sex Type Anes PTL Lv 1 Current PE VS: BP 110/74 Wt 75.5 kg (166 lb 8 oz) LMP 06/02/2023 BMI 28.58 kg/m General Alert, NAD See flowsheet Labs: labs have been done per patient. Will reach out to obtain results of 28 week labs Rh Positive Imp/Plan 28 y.o. at 34w0d Problem List Active Problems Ascending aorta dilation ([facility]) Relevant Orders US MFM with or without consult US MFM with or without consult US MFM with or without consult US MFM with or without consult US MFM with or without consult US MFM with or without consult nonstress test - Maternal Medicine US MFM with or without consult Bicuspid aortic valve Relevant Orders US MFM with or without consult US MFM with or without consult US MFM with or without consult US MFM with or without consult US MFM with or without consult US MFM with or without consult nonstress test - Maternal Medicine US MFM with or without consult Congenital heart disease Relevant Orders US MFM with or without consult US MFM with or without consult US MFM with or without consult US MFM with or without consult US MFM with or without consult US MFM with or without consult nonstress test - Maternal Medicine US MFM with or without consult Maternal cardiovascular disease affecting in third trimester - Primary Overview For assisted 2nd stage of labor. Bicuspid aortic valve with mild post dilated valvular aortic dilation in the ascending aorta 12/03/[address] Peraza Bicuspid aortic valve Trivial to mild aortic stenosis, peak instantaneous systolic pressure gradient of 16mmHg Moderate to severely dilated ascending aorta (unchanged) Mildly dilated aortic root Aortic annulus 2.72 cm Relevant Orders US MFM with or without consult US MFM with or without consult US MFM with or without consult US MFM with or without consult US MFM with or without consult US MFM with or without consult nonstress test - Maternal Medicine US MFM with or without consult Palpitations Resolved Problems RESOLVED: Hypothyroidism affecting Care Has not received influenza vaccine--states she gets ill with myalgia and feeling poorly for about 2 days. RSV vaccine is recommended between 32w0d and 36w6d weeks during the RSV Season (usually November through March) to prevent severe lower tract respiratory infection in infants. Patient declined. TDaP vaccine has been received per patient labor warnings/ Movement discussed Maternal Congenital anomaly with bicuspid aortic valve. Also notable for dilated ascending aorta Cardiac warning signs discussed Last echo on 11/2023. Echo scheduled for 02/12/24 Serial growth scans with last growth 01/13/24. Schedule for 4 weeks after 01/13/24 testing with weekly NST/DVP until delivery-- she plans to do this with Dr. Peraza For assisted 2nd stage delivery Per Dr. Crowley--deliver 39 weeks (Note on 11/18/23) Telemetry during labor and for 24 hours post delivery Discussed with patient signs/symptoms of influenza and COVID 19 and the need to contact us so that we can evaluate and possibly start medication. RTC 2 weeks HROB Note to patient: The Century Cures Act makes medical notes like these available to patients in the interest of transparency. However, be advised this is a medical document. It is intended as peer to peer communication. It is written in medical language and may contain abbreviations or verbiage that are unfamiliar. It may appear blunt or direct. Medical documents are intended to carry relevant information, facts as evident, and the clinical opinion of the practitioner. Patient here for transfer of care and visit. States baby is moving well. Having occasional contractions, denies vaginal bleeding or discharge. Denies lower extremity swelling. Pulse-60 Urine [id number]. Oriented to office and contact information given. Verbalizes understanding. Declines RSV vaccine. documented in this encounter [employer] 01-14-2024 History of Present illness Narrative Reason for Appointment: Patient ID: Norma Cardenas is a 28 y.o. female who presents for Routine Visit Patient presents today for Return OB appointment. MEDICATIONS Current Outpatient Medications Medication Instructions omega-3 1000 MG capsule capsule Chase-3 Fatty Acids (OMEGA 3 PO) Take by [...] of: TAVIA Parsons documented in this encounter [facility] 01-13-2024 History of Present illness Narrative [...] Mild aortic dilation. HISTORY OF PRESENT ILLNESS: Norma Cardenas is a pleasant 28 y.o. G 1 P0 at 32w1d due on Estimated Date of Delivery: 03/08/24 . has been complicated with 1. Maternal aortic bicuspid aortic valve with mild post dilated valvular aortic dilation in the ascending aorta. Last maternal echocardiography in 2020. 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 She has seen poultry raiser. No future testing or ultrasound required per Endo. 4. 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 Currently the patient has no complaints. The patient denies nausea, vomiting, abdominal pain, vaginal bleeding, SOB or chest pain. Patient Active Problem List Diagnosis Bicuspid aortic valve Palpitations Ocular migraine Dizziness Congenital heart disease Ascending aorta dilation ([facility]) ALLERGIES: Allergies Allergen Reactions Doxycycline ulercative esophagus [...] Complete transfer of care To the Regional rn observation Clinic at [facility] [facility]. 4. Consult to [facility] done today 5. Continue testing at her OB office 6. Delivery at 39 or 40 weeks gestation at [facility] 7. Stable and therefore patient is still a candidate for vaginal delivery. 8. Dr. Peraza Cardiology need to be notified and consulted formally at the time of induction of labor Thank you for allowing me to participate in Norma Cardenas care. If there are any questions, please do not hesitate to call me. Sincerely, DUARTE BERNARD MD documented in this encounter [facility] 01-13-2024 Note Lonnie Peres [address] [facility] [address] January 13, 2024 Patient: Norma Cardenas Date of : 1995 Date of Visit: 01/13/2024 Dear Herve Jimenez MD: I had the pleasure of seeing Norma Cardenas, at our pediatric cardiology clinic on 01/13/2024 for Cardiac follow-up. Norma is an almost 29-year-old female currently at [...] on a single (more content not included)... [facility] 12-30-2023 History of Present illness Narrative Reason for Appointment: Patient ID: Norma Cardenas is a 28 y.o. female who presents for Routine Visit Patient presents today for Return OB appointment. MEDICATIONS Current Outpatient Medications Medication Instructions Chase-3 Fatty Acids (OMEGA 3 PO) Take by [...] Grandfather Michael Holder Hypertension Paternal Grandmother Shagufta Walkere Breast cancer Father's Sister Diana Hanks Hyperlipidemia Father's Sister Diana Hanks Hypertension Father's Sister Diana Hanks Hypertension Father's Sister Lakisha Wolfgang Barry Hypertension Father's Brother Tucker Casey Seizures Brother Sean Peña Stroke Mother's Brother [...] nursing note reviewed. Exam conducted with a route salesman and driver present. Vitals: Estimated body mass index is [...] Sammy Peraza DO documented in this encounter [facility] 12-17-2023 History of Present illness Narrative Reason for Appointment: Patient ID: Norma Cardenas is a 28 y.o. female who presents for Routine Visit Patient presents today for Return OB appointment. MEDICATIONS Current Outpatient Medications Medication Instructions Chase-3 Fatty Acids (OMEGA 3 PO) Oral Vit-DSS-Fe [...] nursing note reviewed. Exam conducted with a route salesman and driver present. Vitals: Estimated body mass index is [...] of: TAVIA Parsons documented in this encounter [facility] 10-07-2023 Note Lonnie Peres [address] [facility] [address] October 07, 2023 Patient: Norma Cardenas Date [...] use. She is scheduled to fly to [place] to see her in the near future [...] Normal biventricular systoli (more content not included)... [facility] 10-07-2023 Note Outpatient echo Must use antibiotic for dental procedures May fly Passive second stage deliver in [facility] 09-22-2023 History of Present illness Narrative RFC: Patient with thyroid nodule. Most recent US showing nodule TI-RADS 3 Regan Neves, CREATIVE ARTS THERAPIST-* HPI: Ms. Cardenas is a 28 y.o. [...] Hyperlipidemia, Hyperthyroidism, Hypogonadism male, Hypothyroidism, Liver disease, [place] (myocardial infarction), Migraine, Multinodular goiter, LADY (obstructive [...] hours as needed. lidocaine viscous-Alum & Mag Tuyfuqclv-Efwbnd-hoxluavciuSLWFS oral mouthwash Swish and swallow 15mL by mouth every 6 hours as needed. norgestimate-ethinyl estradiol (Sprintec 28) 0.25-35 MG-MCG tablet Take 1 tablet by mouth at bedtime. nystatin [id number] UNIT/ML oral suspension Swish and swallow 10 [...] Echogenicity: Hyperechoic or isoechoic (1 point) Shape: Ssfrm-uahr-rkjd (0 points) Margin: Smooth (0 points) Echogenic [...] of Endocrinology, Diabetes, and Metabolism [facility] at the [facility] [place] [address] No follow-ups on file. Patient has verified [...] of Endocrinology, Diabetes, and Metabolism [facility] [place] [address] documented in this encounter [facility] 09-22-2023 Instructions Latrice Hall MD - 09/22/2023 1:30 PM EDT It was great seeing you today! Division of Endocrinology Outpatient Care [facility] Follow-up appointments: Please arrive at least [...] Any non-urgent results will be relayed via [email or web address] if you have signed up for this service or via a letter through the mail and/or phone call. Communication with your provider: - [facility] [employer] is highly recommended as the most efficient [...] help perpare you for your future visits: [email or web address] --> Patient Care section. Sincerely, Latrice Hall MD Fellow, Division of Endocrinology, Diabetes, and Metabolism [facility] at the [facility] Outpatient Care [facility] [address] [place] [address] documented in this encounter [facility] 09-22-2023 Procedure note Associated Ord er(s): CHG US SOFT TISSUE HEAD & NECK REAL TIME IMGE DOCM Ms. Cardenas was seen and examined with Dr. Hall, I independently verified the findings on US and agree with the documented report - thyroid ultrasound report appears in the notes tab. [facility] 09-22-2023 Procedure note Associated Ord er(s): CHG US SOFT TISSUE HEAD & NECK REAL TIME IMGE DOCM Ms. Cardenas was seen and examined with Dr. Hall, I independently verified the findings on US and agree with the documented report - thyroid ultrasound report appears in the notes tab. documented in this encounter [facility] 12-24-2022 History of Present illness Narrative Chief Complaint: Chief Complaint Patient presents with New Patient Reports right side of neck with questionable swelling, continues to have problems with food getting stuck. Has to wash down food with liquids. HPI: Norma Cardenas is a 27 y.o. female smoker / non-smoker who presents 12/24/22 to the [facility] [...] Laterality: N/A; Surgeon: Ramin Denney MD; [facility] W[facility]DOM TEETH EXTRACTION Social [...] 1 Bottle 0 lidocaine viscous-Alum & Mag Tlmxrjhgn-Yelkza-aznsefamlqMSLXP oral mouthwash Swish and swallow 15mL by mouth every 6 hours as needed. 240 mL 0 norgestimate-ethinyl estradiol (Sprintec 28) 0.25-35 MG-MCG tablet Take 1 tablet by mouth at bedtime. nystatin 526285 UNIT/ML oral suspension Swish and swallow 10 [...] / non-smoker who presents 12/24/22 to the [facility] [...] N/A; Surgeon: Ramin Denney MD; [facility] MAIN OR WISDOM TEETH EXTRACTION Social [...] 1 Bottle 0 lidocaine viscous-Alum & Mag Snpdvphvx-Svamal-tofwggtzvdUPIEI oral mouthwash Swish and swallow 15mL by mouth every 6 hours as needed. 240 mL 0 norgestimate-ethinyl estradiol (Sprintec 28) 0.25-35 MG-MCG tablet Take 1 tablet by mouth at bedtime. nystatin 755627 UNIT/ML oral suspension Swish and swallow 10 [...] are not concerning. documented in this encounter [facility] 11-20-2022 History of Present illness Narrative Maternal- Medicine (High Risk Obstetrics) Consultation Indication for consultation: Congenital Bicuspid aortic valve Referring Provider: Herve Jimenez MD History Norma Cardenas is a 27yo G0 LMP [id number] using nothing for contraception who presents for preconception consultation in the setting of hx congenital bicuspid aortic valve. Her history is also notable for a history of exercise induced asthma and thyroid nodule. She feels well today and has no complaints or concerns. She was recently seen by Dr. Peraza ([facility]) for preconception counseling on 05/21/2022 at [...] [facility]. She does not currently have an medical instructor. Ms. Norma Cardenas has the following problems [...] Laterality: Bilateral; Surgeon: Charlotte Cárdenas MD; Location: [facility] SAME DAY SURGERY MAIN OR CHOLECYSTECTOMY ROBOTIC N/A 04/06/2019 Laterality: N/A; Surgeon: Ramin Denney MD; Location: [facility] MAIN OR WISDOM TEETH EXTRACTION - No [...] 1 Bottle 0 lidocaine viscous-Alum & Mag Wtjtwxqsw-Gnnslb-zaqwhzyfsrBSUZZ oral mouthwash Swish and swallow 15mL by mouth every 6 hours as needed. 240 mL 0 norgestimate-ethinyl estradiol (Sprintec 28) 0.25-35 MG-MCG tablet Take 1 tablet by mouth at bedtime. nystatin 403468 UNIT/ML oral suspension Swish and swallow 10 [...] . --. 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 [...] and Gynecology Division of Maternal Medicine [facility] documented in this encounter [facility] 06-05-2021 Instructions Charlotte Cárdenas MD - 06/05/2021 11:42 AM EDT ASSESSMENT/PLAN: Status post tonsillectomy Healing well Pathology benign Followup as needed documented in this encounter [facility] 06-05-2021 History of Present illness [...] Followup as needed documented in this encounter [facility] Evaluation note Diagnosis Postop check- Primary Follow-up examination, following unspecified surgery [facility] Diagnosis Encounter for preconception consultation- Primary Bicuspid aortic valve Congenital insufficiency of aortic valve [facility] Diagnosis Lymphadenopathy- Primary Enlargement of lymph nodes [facility] Diagnosis Lymphadenopathy Enlargement of lymph nodes [facility] Diagnosis Lymphadenopathy Enlargement of lymph nodes [facility] Diagnosis Thyroid nodule Nontoxic uninodular goiter [facility] Diagnosis Thyroid nodule- Primary Nontoxic uninodular goiter [facility] Diagnosis 28 weeks gestation of Third trimester state, incidental documented in this encounter [facility]* Diagnosis 30 weeks gestation of Third trimester state, incidental Aortic stenosis of mother during Hypothyroid in , antepartum (CMS/HCC) Vaginal discharge during in second trimester Encounter for screening for cervical length documented in this encounter [facility] HealthcareEvaluation note* Diagnosis Ascending aorta dilation (CMS-HCC)- Primary Thoracic aneurysm without mention of rupture 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 [facility] Diagnosis Third trimester state, incidental 32 weeks gestation of documented in this encounter [facility] HealthcareEvaluation note* Diagnosis Maternal cardiovascular disease affecting in third trimester- Primary Bicuspid aortic valve Congenital insufficiency of aortic valve Palpitations Congenital heart disease Unspecified congenital anomaly of heart Ascending aorta dilation (CMS-HCC) Thoracic aneurysm without mention of rupture Hypothyroidism affecting , antepartum 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 [facility]* Attachments The following attachments cannot be sent through Care Everywhere. * [facility] SMOKING CESSATION [facility] Reason for Referral Status Reason Specialty Diagnoses / Procedures Referred By Contact Referred To Contact New Request Diagnoses Other fatigue Lymphadenopathy of head and neck Procedures US NECK SOFT TISSUE Darryn Kennedy PLANING MACHINE OPERATOR [address] [address] Specialty Diagnoses / Procedures Referred By Emanuel t Referred To Contact Diagnoses Lymphadenopathy Procedures XR FLUORO MODIFIED BARIUM SWALLOW-ENT ONLY CHG RADIOLOGIC EXAM ESOPHAGUS SINGLE CONTRAST STUDY Regan Neves, CREATIVE ARTS THERAPIST-PLANING MACHINE OPERATOR [address] [place] [address] Referral ID Status Reason Start Date Expiration Date V isits Requested Visits Authorized [id number] Auth Not Needed 12/24/2022 01/18/2024 1 1 Specialty Diagnoses / Procedures Referred By Contac t Referred To Contact Diagnoses Lymphadenopathy Regan Neves, CREATIVE ARTS THERAPIST-PLANING MACHINE OPERATOR [address] [place] [address] Referral ID Status Reason Start Date Expiration Date V isits Requested Visits Authorized [id number] Pending Review 12/24/2022 01/18/2024 1 1 Specialty Diagnoses / Procedures Referred By Contac t Referred To Contact Diagnoses Lymphadenopathy Procedures CT NECK WITH CONTRAST UT CT NECK TISSUE CONTRAST Regan Neves, CREATIVE ARTS THERAPIST-PLANING MACHINE OPERATOR [address] [place] [address] Referral ID Status Reason Start Date Expiration Date Visits Re quested Visits Authorized [id number] Closed 12/24/2022 01/18/2024 1 1 Referral ID Status Reason Start Date Expiration Date Visits Re quested Visits Authorized [id number] Closed 12/24/2022 01/18/2024 1 1 Specialty Diagnoses / Procedures Referred By Contac t Referred To Contact Diagnoses Thyroid nodule Procedures US THYROID UT US,HEAD/NECK TISSUES,REAL TIME Herve Jimenez MD [address] [place] [address] [facility] [address] [place] [address] Referral ID Status Reason Start Date Expiration Date V isits Requested Visits Authorized [id number] New Request 05/27/2023 06/20/2024 1 1 Specialty Diagnoses / Procedures Referred By Contac t Referred To Contact Diagnoses Thyroid nodule Procedures US [facility] Andres Torres MD [address] [place] [address] [place] [address] Referral ID Status Reason Start Date Expiration Date V isits Requested Visits Authorized [id number] New Request 09/22/2023 10/16/2024 1 1 Assessments [...] DATE CREATED AUTHOR AUTHOR'S ORGANIZ ATION 05/28/2022 [facility] DATE CREATED AUTHOR AUTHOR'S ORGANIZ ATION 05/24/2023 [facility] DATE CREATED AUTHOR AUTHOR'S ORGANIZ ATION 09/26/2023 [facility] DATE CREATED AUTHOR AUTHOR'S ORGANIZ ATION 12/17/2023 [facility] DATE CREATED AUTHOR AUTHOR'S ORGANIZ ATION 01/15/2024 [facility] DATE CREATED AUTHOR AUTHOR'S ORGANIZ ATION 01/16/2024 [facility] DATE CREATED AUTHOR AUTHOR'S ORGANIZ ATION 01/28/2024 [facility] dical Specialists EPIC Reason for Visit (unrecogniz [...] W/O FOL W/CONT, CHEST Chepe Peraza MD [address] [place] [address] [facility] [address] [place] [address] Referral ID Status Reason Start Date Expiration Date V isits Requested Visits Authorized [id number] Auth Not Needed 05/29/2022 06/23/2023 1 1 [...] Self, Self Emile Armas MD [address] [place] [phone] Referral ID Status Reason Start Date Expiration Date Visits Re quested Visits Authorized [id number] Closed 12/24/2022 01/18/2024 1 1 Specialty Diagnoses / Procedures Referred By Contac t Referred To Contact Diagnoses Lymphadenopathy Procedures CT NECK WITH CONTRAST UT CT NECK TISSUE CONTRAST Regan Neves, CREATIVE ARTS THERAPIST-PLANING MACHINE OPERATOR [address] [place] [address] Referral ID Status Reason Start Date Expiration Date Visits Re quested Visits Authorized [id number] Closed 12/24/2022 01/18/2024 1 1 Specialty Diagnoses / Procedures Referred By Contac t Referred To Contact Diagnoses Lymphadenopathy Procedures XR FLUORO MODIFIED BARIUM SWALLOW-ENT ONLY CHG RADIOLOGIC EXAM ESOPHAGUS SINGLE CONTRAST STUDY Regan Neves, CREATIVE ARTS THERAPIST-PLANING MACHINE OPERATOR [address] [place] [address] Referral ID Status Reason Start Date Expiration Date Visits Re quested Visits Authorized [id number] Closed 12/24/2022 01/18/2024 1 1 Specialty Diagnoses / Procedures Referred By Contac t Referred To Contact Diagnoses Thyroid nodule Procedures US THYROID UT US,HEAD/NECK TISSUES,REAL TIME Herve Jimenez MD [address] [place] [address] [facility] [address] [place] [address] Referral ID Status Reason Start Date Expiration Date V isits Requested Visits Authorized [id number] New Request 05/27/2023 06/20/2024 1 1 Reason Comments Thyroid Nodule Specialty Diagnoses / Procedures Referred By Contac t Referred To Contact Endocrinology, Diabetes & Metabolism Diagnoses Thyroid nodule Regan Neves, CREATIVE ARTS THERAPIST-PLANING MACHINE OPERATOR [address] [place] [address] Referral ID Status Reason Start Date Expiration Date V isits Requested Visits Authorized [id number] Pending Review 06/04/2023 06/28/2024 1 1 Reason Comments Routine Visit Reason Comments aortic root dilation aortic stenosis Reason Comments Routine Visit Specialty Diagnoses / Procedures Referred By Contac t Referred To Contact Obstetrics & Gynecology / Obstetrics and Gynecology Diagnoses Ascending aorta dilation ([facility]) 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 Duarte Bernard MD [address] [facility] [place] [place] [address] Phone: tel: fax: [facility] [address] [place] [address] Phone: tel: fax: Referral ID Status Reason Start Date Expiration Date Visits Requested Visits Authorized [id number] Pending Review Specialty Services Required 01/13/2024 01/12/2025 1 1 Care Teams (unrecognized sec tion and content) Jewelry Department Supervisor Relationship Specialty Start Date End Date Herve Jimenez MD [address] [place] [address] PCP - General Family Medicine 09/23/19 Chepe Peraza MD [address] [place] [id number] College Athletic Director Pediatrics 04/30/21 Jewelry Department Supervisor Relationship Specialty Start Date End Date Herve Jimenez MD [address] [place] [address] PCP - General Family Medicine 09/23/19 Chepe Peraza MD [address] [place] [address] College Athletic Director Pediatrics 04/30/21 Jewelry Department Supervisor Relationship Specialty Start Date End Date Herve Jimenez MD [address] [place] [address] PCP - General Family Medicine 09/23/19 Chepe Peraza MD [address] [place] [address] College Athletic Director Pediatrics 04/30/21 Jewelry Department Supervisor Relationship Specialty Start Date End Date Herve Jimenez MD [address] [address] PCP - General Family Medicine 09/23/19 Chepe Peraza MD [address] [place] [address] College Athletic Director Pediatrics 04/30/21 Jewelry Department Supervisor Relationship Specialty Start Date End Date Herve Jimenez MD [address] [address] PCP - General Family Medicine 09/23/19 Chepe Peraza MD [address] [place] [address] College Athletic Director Pediatrics 04/30/21 Jewelry Department Supervisor Relationship Specialty Start Date End Date Herve Jimenez MD [address] [place] [address] PCP - General Family Medicine 09/23/19 Chepe Peraza MD [address] [place] [address] College Athletic Director Pediatrics 04/30/21 Jewelry Department Supervisor Relationship Specialty Start Date End Date Herve Jimenez MD [address] [place] [address] PCP - General Family Medicine 09/23/19 Chepe Peraza MD [address] [place] [address] College Athletic Director Pediatrics 04/30/21 Jewelry Department Supervisor Relationship Specialty Start Date End Date Herve Jimenez MD [address] [place] [address] PCP - General Family Medicine 09/23/19 Chepe Peraza MD [address] [place] [address] College Athletic Director Pediatrics 04/30/21 Jewelry Department Supervisor Relationship Specialty Start Date End Date Herve Jimenez MD [address] [place] [address] PCP - General Family Medicine 06/29/20 Jewelry Department Supervisor Relationship Specialty Start Date End Date Herve Jimenez MD [address] [place] [address] PCP - General Family Medicine 06/29/20 FOR [...] BE BASED ON THE PRIMARY CLINICAL RECORDS. [employer] provides no warranty or guarantee of the accuracy or completeness of information in this document.
--- OUTSIDE RECORDS SUMMARY | 2024-02-11 06:29 | XMS_ITS | CCD ---
Author Organization [facility] Care Team Providers Care Artifacts Conservator Name Role Phone Unavailable Unavailable Unavailable Herve Jimenez MD Primary Care Provider [phone] Chepe Peraza MD Unavailable [phone] Herve Jimenez MD Primary Care Unavail able Cristian DORADO, Jake Og Attending UnavailHerve Chiang MD Primary Care Unavail swathi Foster MD, Jake Og Attending Unavailvero Foster MD, Jake Og Attending UnavailHerve Chiang MD Primary Care Unavail able Herve Jimenez MD Primary Care Provider [phone] Chepe Peraza MD Unavailable [phone] Herve Jimenez MD Primary Care Provider HERVE JIMENEZ Attending Unavailable Chepe Peraza MD Unavailable [phone] LATRICE HALL Attending Unavailable BARBARA HERVE J Primary Care Unavailable REGAN NEVES Referring Unavailable SHOEMAKER HERVE J Primary Care Unavailable SELF, SELF Referring Unavailable ANATOLIY JOSEANDA Akil Admitting Unavailable BELLE JOSE Attending Unavailable [...] M Referring Unavailable OZER, ENVER Attending Unavailable LAURAKER, HERVE J Primary Care Unavailable SHOEMAKER, HERVE J Attending Unavailable SHOEMAKER, HERVE J Referring Unavailable SHOEMAKER, HERVE J Primary Care Unavailable FRUREANNA, DARRYN Primary Care Unavailable DU PHILIP Referring Unavailable FRUREANNA, DARRYN Primary Care Unavailable MONICA SOFIA Attending Unavailable Unavailable Primary Care Provider Unavailfaith Jimenez MD, Herve Morejon Primary Care Provider TEA, CHEPE Attending Unavailable PERAZA, CHEPE Attending Unavailable DI PANCHAL Attending Unavailable STU, SAMMY Attending Unavailable OBNNIE, ELLA Attending Unavailable STU, SAMMY Attending Unavailable BONNIE, ELLA Attending Unavailable BONNIE, ELLA Attending Unavailable STU, SAMMY Attending Unavailable BONNIE, ELLA Attending Unavailable STU, SAMMY Attending Unavailable STU, SAMMY R Referring Unavailable SHOEMAKER, HERVE KENYA Primary Care Unavailabl e DUARTE BERNARD Attending Unavailable THERESE GLEASON Referring Unavailable SHOEMAKER, HERVE KENYA Primary Care Unavailabl e PERAZA, CHEPE Pham Referring Unavailable SHOEMAKER, HERVE KENYA Primary Care Unavailabl e STU, SAMMY R Referring Unavailable SHOEMAKER, HERVE KENYA Primary Care Unavailabl e SANTI CROWLEY Attending Unavailable MARÍA ELENA JOSEPH Referring Unavailabl e SHOEMAKER, HERVE KENYA Primary Care Unavailabl e PERAZA, CHEPE Pham Referring Unavailable SHOEMAKER, HERVE KENYA Primary Care Unavailabl e STU, SAMMY R Referring Unavailable SHOEMAKER, HERVE KENYA Primary Care Unavailabl e DUARTE BERNARD Attending Unavailable STU, SAMMY R Referring Unavailable SHOEMAKER, HERVE KENYA Primary Care Unavailabl e SHOEMAKER, HERVE KENYA Referring Unavailabl e SHOEMAKER, HERVE KENYA Primary Care Unavailabl e Allergies Allergy Classification Reported Allergen(s) Allergy Type Date of Onset Reaction(s) Facility (20 sources) Amoxicillin; Translations: [amoxicillin] Drug Allergy 04-14-19 13 Rash, Unknown [facility] Work Phone: (12 sources) Clarithromycin; Translations: [clarithromycin] Drug Allergy 10-07-19 16 Rash [facility] Work Phone: (20 sources) Clindamycin; Translations: [clindamycin] Drug Allergy 03-16-19 18 [facility] Work Phone: (20 sources) Doxycycline; Translations: [doxycycline] Drug Allergy 04-14-19 13 Unknown [facility] Work Phone: (19 sources) Clarithromycin Propensity to adverse reactions to drug 10-07-19 16 Rash, Unknown [facility] Work Phone: (17 sources) Erythromycin; Translations: [ERYTHROMYCIN] Drug Allergy 04-14-[address] [facility] (15 sources) Spironolactone; Translations: [SPIRONOLACTONE] Drug Allergy 05-27-[address] [facility] (13 sources) Clindamycin/Lincom ycin Drug Intolerance 07-13-[address] [facility] (2 sources) Spironolactone Drug Allergy 09-09-[address] [facility] (6 sources) Lincomycin; Translations: [LINCOMYCIN] Drug Allergy 07-13-[address] [facility] Medications Current Medications Medication Drug Class(es) Dates [...] / zinc oxide 20 mg oral tablet (19 sources) Vitamin B12, Vitamin D, Vitamin C [...] / eicosapentaenoic acid 180 mg oral capsule (5 sources) omega-3 1000 MG capsule capsule Active [...] 0 05/22/2021 Active lidocaine viscous-Alum & Mag Iwavtrjjt-Smmvju-qbtcfwwhtuNWEUD oral mouthwash (8 sources) Start: 05-22-2021 take 15 mL by mouth every six hours as needed lidocaine viscous-Alum & Mag Vhauxzdwe-Xfxllu-yagjsdxwrgTXPAN oral mouthwash Swish and swallow 15mL by mouth every 6 hours as needed. 240 mL 05/22/2021 Active Start: 05-22-2021 take 15 mL by mouth every six hours as needed lidocaine viscous-Alum & Mag Ydxqsymso-Ocuzrl-lwlkekdgodLRDCK oral mouthwash Swish and swallow 15mL by mouth every 6 hours as needed. 240 mL 0 05/22/2021 Active nystatin 554253 unt/ml oral suspension (8 sources) Polyene Antifungal Start: 05-16-2021 take 10 mL by mouth four times daily nystatin [id number] UNIT/ML oral suspension Swish and swallow 10 mL 4 times daily. 280 mL 05/16/2021 Active [place]-3 Fatty Acids (OMEGA 3 PO) (13 sources) [place]-3 Fatty Ac ids (OMEGA 3 PO) Take [...] Diseases of the circulatory system complicating , third trimester; Translations: [Diseases of the circulatory system complicating , third trimester] Onset: 01-27-2024 Episodic Other complications of (1 source) Endocrine, nutritional and metabolic diseases complicating , unspecified trimester; Translations: [Endocrine, nutritional and metabolic diseases complicating , unspecified trimester] Onset: 01-26-2024 Episodic Other complications of (1 source) Diseases of the circulatory system complicating , second trimester; Translations: [Diseases of the circulatory system complicating , second trimester] Onset: 11-18-2023 Episodic Other complications of (1 source) Endocrine, nutritional and metabolic diseases complicating , second trimester; Translations: [Endocrine, nutritional and metabolic diseases complicating , second trimester] Onset: 11-18-2023 Episodic Other and delivery including normal (9 sources) Third trimester ; Translations: [Encounter for supervision of normal , unspecified, third trimester] Onset: 01-26-2024 12-17-2023 Episodic Residual codes; unclassified (2 sources) Gestation period, 28 weeks; Translations: [28 weeks gestation of ] 12-17-2023 Episodic Residual codes; unclassified (2 sources) Gestation period, 30 weeks; Translations: [30 weeks gestation of ] 12-30-2023 Episodic Residual codes; unclassified (2 sources) Gestation period, 32 weeks; Translations: [32 weeks gestation of ] 01-14-2024 Episodic Residual codes; unclassified (1 source) 24 weeks gestation of ; Translations: [24 weeks gestation of ] Onset: 11-18-2023 Episodic Residual codes; unclassified (2 sources) Gestation period, 34 weeks; Translations: [34 weeks gestation of ] 01-26-2024 Episodic Thyroid disorders (13 sources) Thyroid nodule; Translations: [Nontoxic single thyroid nodule] Onset: 11-20-2022 11-20-2022 Chronic Unclassified (1 source) Routine Visit Onset: 01-27-2024 Unclassified (1 source) Maternal care for (suspected) [...] cholecystitis] Onset: 04-05-2019 04-06-2019 Episodic Cardiac dysrhythmias (6 sources) Palpitations; Translations: [Palpitations] Onset: 07-15-2017 07-15-2017 Episodic Conditions associated with dizziness or vertigo (2 sources) Dizziness; Translations: [Dizziness and giddiness] Onset: 06-29-2020 06-29-2020 Episodic Lymphadenitis (6 sources) Generalized enlarged lymph nodes; Translations: [Lymphadenopathy] Onset: 01-09-2023 12-24-2022 Episodic Mood disorders (5 sources) Mood disorders Onset: 12-24-2022 12-24-2022 Other complications of (1 source) Abnormal ultrasonic finding on screening of mother; Translations: [Abnormal ultrasonic finding on screening of mother] Onset: 10-20-2023 Episodic Other complications of (1 source) Supervision of high risk , unspecified, unspecified trimester; Translations: [Supervision of high risk , unspecified, unspecified trimester] Onset: 10-20-2023 Episodic Other gastrointestinal disorders (2 sources) Dysphagia, pharyngeal phase; Translations: [Dysphagia, pharyngeal phase] Onset: 01-09-2023 Episodic Other screening for suspected conditions (not mental disorders or infectious disease) (3 sources) Encounter for other specified screening; Translations: [Encounter for screening for congenital cardiac abnormalities] Onset: 10-20-2023 Episodic NEGATED: Highlighted row has been ruled out!Unclassified (13 sources) No known active problems 05-27-2023 Results Test Name Value Interpretation Reference Range Facility Urinalysis macro (dipstick) panel (U)on 01-26-2024 Bilirubin, UA Negative Negative - 4(70) +++ mg/dL [facility] Blood, UA Negative Negative - 50 Sina/mcL [facility] Clarity, UA Clear [facility] re Color, UA Yellow [facility] Glucose, UA Negative Negative - 2000(110) ++++ mg/dL [facility] Interpretation and review of laboratory results Normal [facility] Ketones, UA Negative Negative - 160(16) ++++ mg/dL [facility] Leukocytes, UA Negative Negative - 500+++ Amos/mcL [facility] Nitrite, UA Negative Negative - Positive [facility] pH, UA 5.5 5 - 9 [facility] Protein, UA Negative Negative - 1999(20) ++++ mg/dL [facility] Spec Grav, UA 1.02 1 - 1.03 [facility] Urobilinogen, UA 1.0 0.2 - 12 mg/dL [facility] Urinalysis macro (dipstick) panel (U)on 01-14-2024 Bilirubin, UA Negative Negative - 4(70) +++ mg/dL [facility] Blood, UA Negative Negative - 50 Sina/mcL [facility] Clarity, UA Clear [facility] Color, UA [facility] Gl[facility], UA Negative Negative - 1999(110) ++++ mg/dL [facility] Interpretation and review of laboratory results Abnormal [facility] Ketones, UA Positive Negative - 160(16) ++++ mg/dL [facility] Comment on above: 15 Leukocytes, UA Trace Negative - 500+++ Amos/mcL [facility] Nitrite, UA Negative Negative - Positive [facility] pH, UA 7 5 - 9 [facility] Protein, UA Positive Negative - 1999(20) ++++ mg/dL [facility] Comment on above: 30 Spec Grav, UA 1.02 1 - 1.03 [facility] Urobilinogen, UA 0.2 0.2 [...] not dizzy. ECHO at 36 weeks Normal [facility] Office Visiton 01-13-2024 Follow-up visit [id number] Lisa Cardenas 1995 F Date Provider Department Center 01/13/2024 HayderCHEPE HICKS RPW PED [facility] [employer] No family history on file Level of Service:26204 SC OFFICE/OUTPATIENT ESTABLISHED MOD MDM 30 MIN Reason for Visit and Comments: Aortic Dilatation [Other] - 32 wks Normal [facility] Orders Onlyon 01-13-2024 Orders Only [id number] Lisa Cardenas 1995 F Date Provider Department [place] 01/13/2024 RAMIRO VOGEL RPW PED [facility] No family history on file Normal [facility] Urinalysis macro (dipstick) panel (U)on 12-30-2023 Bilirubin, UA Negative Negative - 4(70) +++ mg/dL [facility] Blood, UA Negative Negative - 50 Sina/mcL [facility] Healthcare Clarity, UA Clear [facility] Color, UA Yellow [facility] Glucose, UA Negative Negative - 1999(110) ++++ mg/dL [facility] Interpretation and review of laboratory results Normal [facility] Ketones, UA Negative Negative - 160(16) ++++ mg/dL [facility] Leukocytes, UA Negative Negative - 500+++ Maos/mcL [facility] Nitrite, UA Negative Negative - Positive [facility] pH, UA 6.5 5 - 9 [facility] Protein, UA Negative Negative - 1999(20) ++++ mg/dL [facility] Spec Grav, UA 1.015 1 - 1.03 [facility] care Urobilinogen, UA 0.2 0.2 - 12 mg/dL [facility] TBH UA (CLEAN/CATCH) SENIOR ARCHITECT/DESIGN MANAGER/GIUSEPPE RO IF IND.on 12-27-2023 BILIRUBIN URINE Negative NEGATIVE [facility] BLOOD URINE Negative NEGATIVE [facility] Clarity (U) CLEAR CLEAR [facility] Color (U) LT. YELLOW YELLOW [facility] GLUCOSE URINE UA Negative NEGATIVE mg/dL [facility] Healthcare Interpretation and review of laboratory results Abnormal [facility] Ketones Ql (U) TRACE Abnormal NEGATIVE mg/dL [facility] Leukocyte esterase Test strip Ql (U) Negative NEGATIVE [facility] NITRITE URINE Negative NEGATIVE [facility] care pH (U) 7.0 [pH] 5.0 - 9.0 [facility] PROTEIN URINE Negative NEG/TRACE mg/dL [facility] SPECIFIC GRAVITY URINE <=1.005 Abnormal 1.005 - 1.025 [facility] URINE MICROSCOPIC INDICATED NO [facility] UROBILINOGEN URINE 0.2 EU/dL 0.2 - 1.0 EU/dL [facility] Urinalysis macro (dipstick) panel (U)on 12-17-2023 Bilirubin, UA Negative Negative - 4(70) +++ mg/dL [facility] Blood, UA Negative Negative - 50 Sina/mcL [facility] Clarity, UA Clear [facility] re Color, UA Yellow [facility] e Glucose, UA Negative Negative - 1999(110) ++++ mg/dL [facility] Interpretation and review of laboratory results Abnormal [facility] Ketones, UA Negative Negative - 160(16) ++++ mg/dL [facility] Leukocytes, UA Trace Negative - 500+++ Amos/mcL [facility] Nitrite, UA Negative Negative - Positive [facility] pH, UA 7.5 5 - 9 [facility] e Protein, UA Negative Negative - 1999(20) ++++ mg/dL [facility] Spec Grav, UA 1.020 1 - 1.03 [facility] Urobilinogen, UA 0.2 0.2 - 12 mg/dL [facility] CBC with Diffon 12-09-2023 Abs. Basophil 0.09 k/uL Normal 0.00-0.20 [facility] Comment on above: Performed By: #### C P, CDP #### [facility] [address] [place] [address] [place] [address] Shell Trim Tool Setter: Clark Mata MD Abs.Imm.Granulocyte 0.17 k/uL Normal 0.00-0.30 [facility] Comment on above: Performed By: #### C P, CDP #### [facility] [address] [place] [address] [employer] Trim Tool Setter: Clark Mata MD Abs.Neutrophil (Seg) 5.63 k/uL Normal 1.50-8.10 [facility] Comment on above: Performed By: #### C P, CDP #### [address] [place] [address] [employer] Trim Tool Setter: Clark Mata MD Basophils/100 WBC (Bld) 1 % Normal 0-2 [facility] Comment on above: Performed By: #### C P, CDP #### [address] [place], [place] [id number] [employer] Tr[employer] Tool Setter: Clark Mata MD Eosinophils (Bld) [#/Vol] 0.13 10*3/uL Normal 0.00-0.44 [facility] Comment on above: Performed By: #### C P, CDP #### [address] [place], [facility] [employer] Setter: Clark Mata MD Eosinophils/100 WBC (Bld) 2 % Normal 1-4 [facility] Comment on above: Performed By: #### C P, CDP #### [address] [place] [address] [employer] Tr[employer] Tool Setter: Clark Mata MD Erythrocyte distribution width (RBC) [Ratio] 12.7 % Normal 11.8-14.4 [facility] Comment on above: Performed By: #### C P, CDP #### [address] [place], [facility] [employer] Setter: Clark Mata MD Hematocrit (Bld) [Volume fraction] 36.4 % Normal 36.3-47.1 [facility] Comment on above: Performed By: #### C P, CDP #### [address] [place] [address] [employer] Tr[employer] Tool Setter: Clark Mata MD Hemoglobin (Bld) [Mass/Vol] 12.6 g/dL Normal 11.9-15.1 [facility] Comment on above: Performed By: #### C P, CDP #### [facility] [address] [place], [place] [id number] [employer] Setter: Clark Mata MD Immature granulocytes/100 WBC (Bld) 2 % High 0 [facility] Comment on above: Performed By: #### C P, CDP #### [facility] [address] [place], [place] [id number] [employer] Setter: Clark Mata MD Lymphocytes (Bld) [#/Vol] 1.80 10*3/uL Normal 1.10-3.70 [facility] Comment on above: Performed By: #### C P, CDP #### [address] [place], [facility] [employer] Setter: Clark Mata MD Lymphocytes/100 WBC (Bld) 21 % Low 24-43 [facility] Comment on above: Performed By: #### C P, CDP #### [address] [place], [place] [id number] [employer] Setter: Clark Mata MD MCH (RBC) [Entitic mass] 30.4 pg Normal 25.2-33.5 [facility] Comment on above: Performed By: #### C P, CDP #### [address] [place], [place] [address] [employer] Setter: Clark Mata MD MCHC (RBC) [Mass/Vol] 34.6 g/dL Normal 28.4-34.8 [facility] Comment on above: Performed By: #### C P, CDP #### [address] [place] [address] [employer] Tr[employer] Tool Setter: Clark Mata MD MCV (RBC) [Entitic vol] 87.9 fL Normal 82.6-102.9 [facility] Comment on above: Performed By: #### C P, CDP #### [facility] [address] [place], [place] [id number] [employer] Setter: Clark Mata MD Monocytes (Bld) [#/Vol] 0.61 10*3/uL Normal 0.10-1.20 [facility] Comment on above: Performed By: #### C P, CDP #### [facility] [address] [place], [facility] [employer] Setter: Clark Mata MD Monocytes/100 WBC (Bld) 7 % Normal 3-12 [facility] Comment on above: Performed By: #### C P, CDP #### [facility] [address] [place], [place] [address] [employer] Setter: Clark Mata MD Neutrophil (Seg) 67 % High 36-65 [facility] Comment on above: Performed By: #### C P, CDP #### [address] [place], [facility]83 [employer] Setter: Clark aMta MD NRBC Automated 0.0 per 100 WBC Normal 0.0 [facility] Comment on above: Performed By: #### C P, CDP #### [address] [place], [facility]83 [employer] Setter: Clark Mata MD Platelet mean volume (Bld) [Entitic vol] 10.7 fL Normal 8.1-13.5 [facility] Comment on above: Performed By: #### C P, CDP #### [facility] [address] [place], [facility]83 [employer] Setter: Clark Mata MD Platelets (Bld) [#/Vol] 162 10*3/uL Normal 138-453 [facility] Comment on above: Performed By: #### C P, CDP #### [facility] [address] [place], [place] [id number] [employer] Setter: Clark Mata MD RBC (Bld) [#/Vol] 4.14 10*6/uL Normal 3.95-5.11 [facility] Comment on above: Performed By: #### C P, CDP #### [facility] [address] [place] [address] [place], [place] [id number] [employer] Setter: Clark Mata MD WBC (Bld) [#/Vol] 8.4 10*3/uL Normal 3.5-11.3 [facility] Comment on above: Performed By: #### C P, CDP #### [address] [place], [place] [id number] [employer] Setter: Clark Mata MD Comp Metabolic Profon 2023 Albumin [Mass/Vol] 3.7 g/dL Normal 3.5-5.2 [facility] Comment on above: Performed By: #### C P, CDP #### [address] [place], [place] [id number] [employer] Setter: Clark Mata MD Albumin/Glob Ratio 1.4 Normal 1.0-2.5 [facility] Comment on above: Performed By: #### C P, CDP #### [address] [place], [place] [id number] [employer] Setter: Clark Mata MD Alkaline Phos 47 U/L Normal 35-104 [facility] Comment on above: Performed By: #### C P, CDP #### [facility] [address] [place] [address] [place], [place] [id number] [employer] Tool Setter: Clark Mata MD ALT [Catalytic activity/Vol] 13 U/L Normal 10-35 [facility] Comment on above: Performed By: #### C P, CDP #### [facility] [address] [place], [place] [address]83 [employer] Setter: Clark Mata MD Anion gap [Moles/Vol] 9 mmol/L Normal 9-16 [facility] Comment on above: Performed By: #### C P, CDP #### [facility] [address] [place], [place] 038[address]83 [employer] Setter: Clark Mata MD AST [Catalytic activity/Vol] 16 U/L Normal 10-35 [facility] Comment on above: Performed By: #### C P, CDP #### [facility] [address] [place], [place] [id number] [employer] Setter: Clark Mata MD Bilirubin [Mass/Vol] 0.3 mg/dL Normal 0.00-1.20 [facility] Comment on above: Performed By: #### C P, CDP #### [facility] [address] [place], [place] [id number] [employer] Setter: Clark Mata MD BUN/CRE Ratio 17 Normal 9-20 [facility] Comment on above: Performed By: #### C P, CDP #### [facility] [address] [place], [place] [id number] [employer] Setter: Clark Mata MD Calcium [Mass/Vol] 8.7 mg/dL Normal 8.6-10.4 [facility] Comment on above: Performed By: #### C P, CDP #### [facility] [address] [place], [place] [id number] [employer] Tr[employer] Tool Setter: Clark Mata MD Chloride [Moles/Vol] 104 mmol/L Normal 98-107 [facility] Comment on above: Performed By: #### C P, CDP #### [facility] [address] [place], [place] [id number] [employer] Tr[employer] Tool Setter: Clark Mata MD CO2 [Moles/Vol] 21 mmol/L Normal 20-31 [facility] Comment on above: Performed By: #### C P, CDP #### [facility] [address] [place], [place] [id number] [employer] Trim Tool Setter: Clark Mata MD Creatinine [Mass/Vol] 0.6 mg/dL Normal 0.50-0.90 [facility] Comment on above: Performed By: #### C P, CDP #### [facility] [address] [place] [address] [employer] Trim Tool Setter: Clark Mata MD GFR/1.73 sq M.predicted among non-blacks MDRD (S/P/Bld) [Vol rate/Area] mL/min/{1.73_m2} Normal >60 [facility] Comment on above: Result Comment: These [...] Performed By: #### C P, CDP #### [facility] [address] [place], [place] [address] [employer] Tr[employer] Tool Setter: Clark Mata MD Glucose [Mass/Vol] 75 mg/dL Normal 74-99 [facility] Comment on above: Performed By: #### C P, CDP #### [facility] [address] [place] [address] [employer] Trim Tool Setter: Clark Mata MD Potassium [Moles/Vol] 4.0 mmol/L Normal 3.7-5.3 [facility] Comment on above: Performed By: #### C P, CDP #### [facility] [address] [place], [place] 9759[address] [employer] Tr[employer] Tool Setter: Clark Mata MD Protein [Mass/Vol] 6.2 g/dL Low 6.6-8.7 [facility] Comment on above: Performed By: #### C P, CDP #### [facility] [address] [place] [address] [employer] Trim Tool Setter: Clark Mata MD Sodium [Moles/Vol] 134 mmol/L Low 136-145 [facility] Comment on above: Performed By: #### C P, CDP #### [facility] [address] [place], [place] [id number] [employer] Tr[employer] Tool Setter: Clark Mata MD Urea nitrogen [Mass/Vol] 10 mg/dL Normal 6-20 [facility] Comment on above: Performed By: #### C P, CDP #### [facility] [address] [place], [place] [id number] [employer] Tr[employer] Setter: Clark Mata MD Lipaseon 5 Lipase [Catalytic activity/Vol] 41 U/L Normal 13-60 [facility] Comment on above: Performed By: #### L IP #### [facility] [address] [place], [place] [id number] Shell Trim Tool Setter: Clark Mata MD UA w/Reflex Cultureon 2023 Bilirubin, SemiQt,Ur Negative Normal NEG [facility] Comment on above: Performed By: #### U AX, UMICAO #### [facility] [address] [place], [place] [id number] Shell Trim Tool Setter: Clark Mata MD Blood, Urine Negative Normal NEG [facility] Comment on above: Performed By: #### U AX, UMICAO #### [facility] [address] [place], [place] [id number] Shell Trim Tool Setter: Clark Mata MD Clarity (U) Clear Normal CLEAR [facility] Comment on above: Performed By: #### U AX, UMICAO #### [facility] [address] [place], [place] [id number] Shell Trim Tool Setter: Clark Mata MD Color (U) Yellow Normal YEL [facility] Comment on above: Performed By: #### U AX, UMICAO #### [facility] [address] [place] [address] Shell Trim Tool Setter: Clark Mata MD Glucose Ql (U) Negative Normal NEG [facility] Comment on above: Performed By: #### U AX, UMICAO #### [facility] [address] [place] [address] [place] [address] Shell Trim Tool Setter: Clark Mata MD Ketones Ql (U) Negative Normal NEG [facility] Comment on above: Performed By: #### U AX, UMICAO #### [facility] [address] [place] [address] [place] [address] Shell Trim Tool Setter: Clark Mata MD Leukocyte esterase Test strip Ql (U) Negative Normal NEG [facility] Comment on above: Performed By: #### U AX, UMICAO #### [address] [place] [address] Shell Trim Tool Setter: Clark Mata MD Nitrite,Ur Negative Normal NEG [facility] Comment on above: Performed By: #### U AX, UMICAO #### [address] [place], [place] [id number] Shell Trim Tool Setter: Clark Mata MD PH,Ur 7.0 Normal 5.0-9.0 [facility] Comment on above: Performed By: #### U AX, UMICAO #### [address] [place] [address] Shell Trim Tool Setter: Clark Mata MD Protein Ql (U) Negative Normal NEG [facility] Comment on above: Performed By: #### U AX, UMICAO #### [facility] [address] [place] [address] [place] [address] Shell Trim Tool Setter: Clark Mata MD Spec. Jackson,Ur 1.015 Normal 1.010-1.[address] [facility] Comment on above: Performed By: #### U AX, UMICAO #### [facility] [address] [place] [address] [place] [address] Shell Trim Tool Setter: Clark Mata MD Urobilinogen,Ur Normal Normal 0.0-1.0 [facility] Comment on above: Performed By: #### U ARNOLD CHAUDHRY #### [facility] [address] [place] [address] Shell Trim Tool Setter: Clark Mata MD US GALLBLADDER RUQon 024 [...] Sabi Leung MD 12/09/23 Final result Normal [facility] Urinalysis,Microon 4 Epithelial cells LM Ql (Urine sed) 0 TO 2 Normal 0-25 [facility] Comment on above: Performed By: #### U ARNOLD CHAUDHRY #### [facility] [address] [place] [address] Shell Trim Tool Setter: Clark Mata MD Urine RBC's None Normal 0-2 [facility] Comment on above: Performed By: #### U ARNOLD CHAUDHRY #### [facility] [address] [place] [id number] Shell Trim Tool Setter: Clark Mata MD Urine WBC's 0 TO 2 Normal 0-5 [facility] Comment on above: Performed By: #### U AX, RAFFYO #### [facility] [address] [place] [address] Shell Trim Tool Setter: Clark Mata MD 12-03-2023 36 Echo order faxed over [facility] 12-02-2023 36 Called and left detailed message for patient [facility] 36 This will be fine Normal [facility] 11-24-2023 36 Patient called stating that they [facility] does not have any appointment for an echo until 32 week. She wants to know if it is okay for her to get it at 32 weeks or what else do you suggest. Please advise [facility] 11-23-2023 36 I called the [facility] and I left a message on her voicemail that I would put an order in but she needs to call the [facility] scheduling line and get it scheduled in our office will fax the order to them. I asked her to schedule it for 30 weeks gestation. Please make sure that the order is faxed to [facility] scheduling. [facility] Orders Onlyon 11-23-2023 Orders Only [id number] Lisa Cardenas 1995 F Date Provider Department Center 11/23/2023 CHEPE GOODSON No family history on file [facility] 11-21-2023 36 Pt called in stating that [...] next apt with Dr. Peraza on 01/12. [facility] Telephoneon 11-21-2023 Telephone [id number] Lisa Cardenas 1995 F Date Provider Department Center 11/21/2023 CHEPE GOODSON No family history on file Reason for Visit and Comments: ECHO [Other] Normal [facility] Office Visiton 10-07-2023 Follow-up visit [id number] Lisa Cardenas 1995 F Date Provider Department Center 10/07/2023 CHEPE GOODSON CLARISSE Rao No family history on file Level of Service:52404 SC OFFICE/OUTPATIENT ESTABLISHED MOD MDM 30 MIN Reason for Visit and Comments: Heart Problem [54] - Transfer from [facility] - 18 wks [facility] CHG US SOFT TISSUE HEAD & NE [facility] Radiology Study observation (narrative) [facility] CHG US SOFT TISSUE HEAD & NE CK REAL TIME IMGE [facility] 09-22-2023 Andres Torres MD 09/23/2023 6:28 PM Ms. Cardenas was seen and examined with Dr. Hall, I independently verified the findings on US and agree with the documented report - thyroid ultrasound report appears in the notes tab. [facility] US Unspecified body regionOr dered By: Unassigned Pacs on 09-22-2023 [facility] Work Phone: US Unspecified body regionon 09-22-2023 Radiology Study observation (narrative) [facility] 36on 07-04-2023 36 Created in error [facility] 36 Scheduled an appointment October 06 at 8:30am. [facility] 36 If this patient schedules a follow-up [...] her and left her message as well. [facility] 36on 07-03-2023 36 Patient is newly (4wks) and is currently scheduled in August for her yearly visit.. She is asking if she needs to reschedule to do the 20-24 wk gestational testing. PH: [phone] Normal [facility] Telephoneon 07-03-2023 Telephone [id number] Lisa Peña 1995 F Date Provider Department Center 07/03/2023 [id number], RAMIRO RPW PED [employer] No family history on file Normal [facility] VZ Immunityon 06-23-2023 VZ Immunity 3.84 Normal >1.09 [facility] Comment on above: Result Comment: Interpretation: IMMUNE Reference Range: <0.91 Not Immune 0.91-1.09 Equivocal >1.09 Immune Performed By: #### V ZI #### [facility] [address] [id number] Shell Trim Tool Setter: Bear Mejias MD US THYROIDon 06-03-2023 US [...] Echogenicity: Hyperechoic or isoechoic (1 point) Shape: [id number] (0 points) Margin: Smooth (0 points) Echogenic [...] using ACR TI-RADS. (JACR July 2016) Normal [facility] FREE T4on 05-23-2023 Free T4 [Mass/Vol] 1.0 ng/dL Normal 0.9-1.8 [facility] Comment on above: Order Comment: Locat ion: Performed By: #### L [id number], [id number] #### ANIL PRESSLEY ([id number]) [facility]) [address], [address] [place] [address] TSHon 05-23-2023 TSH 2.599 MIU/mL Normal 0.550-4.780 [facility] Comment on above: Order Comment: Locat ion: Performed By: #### L 127, [id number] #### ANIL PRESSLEY ([id number]) [facility]) [address], [address] [place] [address] RF videography Hypopharynx a nd Esophagus Views [...] report for further details and dietary recommendations. [facility] Radiology Study observation (narrative) [facility] RF videography Hypopharynx a nd Esophagus Views W liquid and paste contrast PO during swallowingOrdered By: Gisele Hardy on 01-09-2023 [facility] Work Phone: XR FLUORO MODIFIED BARIUM [...] for further details and dietary recommendations. Normal [facility] CT NECK WITH CONTRASTon 10-1 CT [...] error, please notify the sender immediately at [phone] and permanently delete the original report and destroy any copies or printouts. Normal [facility] [employer] [facility] Cytology Reporton 2022 [employer] [facility] Cytology Report Clinical Information Specimen Collection Date: [...] smears in the future. 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 Patient reports some pain [...] and the last time she saw her dining room manager thought there might have been some [...] will send patient for preconceptual counseling with Lonnie because of her cardiac abnormality Follow-up 1 [...] (more content not included)... Normal [facility] Culture, Urineon 08-04-2020 RPT Microbiology results Abnormal [facility] Comment on above: Order Comment: Items in this order include: Culture, Urine Testing Performed By: [facility] [address] [place] [address]. [place] [address] Dr. Anil Pressley, Shell Trim Tool Setter Result Comment: [place] Count: 10,000-25,000 CFU/ML Final Result: Escherichia [...] R Performed By: #### C 734 #### [facility] [address] [place] [address] Culture, Urineon 03-14-2020 RPT Microbiology results Abnormal [facility] Comment on above: Order Comment: Items in this order include: Culture, Urine Testing Performed By: [facility] [address] [place] [address]. [place] [address] Dr. Shaunna Cummins, Shell Trim Tool Setter Result Comment: [place] Count: >100,000 CFU/ML Final Result: Escherichia [...] R Performed By: #### C 734 #### [facility] [address] [place] [address] Culture, Urineon 12-14-2019 RPT Microbiology results Abnormal [facility] Comment on above: Order Comment: Items in this order include: Culture, Urine Testing Performed By: [facility] [address] [place] [address] Dr. Shaunna Cummins, Shell Trim Tool Setter Result Comment: [place] Count: 50,000-75,000 CFU/ML Final Result: Escherichia [...] R Performed By: #### C 734 #### [facility] [address] [place] [address] Vital Signs Date Time Vital Sign Value Performing Clinician Facility 01-27-2024 10:23-0500 Body mass index (BMI) [Ratio] 28.58 kg/m2 [facility] Initial [facility] 01-27-2024 10:23-0500 Body weight 75.52 kg [facility] Initial [facility] 01-27-2024 10:23-0500 Diastolic blood pressure 74 mm[Hg] [facility] Initial [facility] 01-27-2024 10:23-0500 Systolic blood pressure 110 mm[Hg] [facility] Initial [facility] 01-26-2024 13:56-0500 Body mass index (BMI) [Ratio] 28.63 kg/m2 Sammy Stu DO Work Phone: [facility] 01-26-2024 13:56-0500 Body weight 75.66 kg Sammy Stu DO Work Phone: [facility] 01-26-2024 13:56-0500 Diastolic blood pressure 68 mm[Hg] Sammy Stu DO Work Phone: [facility] 01-26-2024 13:56-0500 Systolic blood pressure 100 mm[Hg] Sammy Stu DO Work Phone: [facility] 01-14-2024 10:57-0500 Body mass index (BMI) [Ratio] 28.15 kg/m2 Ella SQUIRES Work Phone: [facility] 01-14-2024 10:57-0500 Body weight 74.39 kg Ella Bonnie PA Work Phone: [facility] 01-14-2024 10:57-0500 Diastolic blood pressure 64 mm[Hg] Ella Bonnie PA Work Phone: [facility] 01-14-2024 10:57-0500 Systolic blood pressure 102 mm[Hg] Ella Nicole PA Work Phone: [facility] 01-13-2024 13:51-0500 Body height 162.6 cm Duarte Bernard MD Work Phone: [facility] 01-13-2024 13:51-0500 Body mass index (BMI) [Ratio] 28.12 kg/m2 Duarte Bernard MD Work Phone: [facility] 01-13-2024 13:51-0500 Body weight 74.3 kg Duarte Bernard MD Work Phone: [facility] 01-13-2024 13:51-0500 Diastolic blood pressure 75 mm[Hg] Duarte Bernard MD Work Phone: [facility] 01-13-2024 13:51-0500 Heart rate 79 /min Duarte Bernard MD Work Phone: [facility] 01-13-2024 13:51-0500 Systolic blood pressure 109 mm[Hg] Duarte Bernard MD Work Phone: [facility] 12-30-2023 10:58-0400 Body mass index (BMI) [Ratio] 28.12 kg/m2 Sammy Stu DO Work Phone: [facility] 12-30-2023 10:58-0400 Body weight 74.3 kg Sammy Stu DO Work Phone: [facility] 12-30-2023 10:58-0400 Diastolic blood pressure 64 mm[Hg] Sammy Stu DO Work Phone: [facility] 12-30-2023 10:58-0400 Systolic blood pressure 100 mm[Hg] Sammy Stu DO Work Phone: [facility] 12-17-2023 10:27-0400 Body mass index (BMI) [Ratio] 27.6 kg/m2 Ella SQUIRES Work Phone: [facility] 12-17-2023 10:27-0400 Body weight 72.94 kg Ella SQUIRES Work Phone: [facility] 12-17-2023 10:27-0400 Diastolic blood pressure 64 mm[Hg] Ella Nicole PA Work Phone: [facility] 12-17-2023 10:27-0400 Systolic blood pressure 100 mm[Hg] Ella Nicole PA Work Phone: [facility] 09-22-2023 13:37-0400 Body height 162.6 cm Latrice Hall MD Work Phone: [facility] 09-22-2023 13:37-0400 Body mass index (BMI) [Ratio] 25.4 kg/m2 Latrice Hall MD Work Phone: [facility] 09-22-2023 13:37-0400 Body temperature 97.3 [degF] Latrice Hall MD Work Phone: [facility] 09-22-2023 13:37-0400 Body weight 67.13 kg Latrice Hall MD Work Phone: [facility] 09-22-2023 13:37-0400 Diastolic blood pressure 62 mm[Hg] Latrice Hall MD Work Phone: [facility] 09-22-2023 13:37-0400 Systolic blood pressure 114 mm[Hg] Latrice Hall MD Work Phone: [facility] 12-24-2022 16:30-0400 Body height 162.6 cm Regan Neves DRESSING ROOM PORTER-DATA INTEGRATION DEVELOPER Work Phone: [facility] 12-24-2022 16:30-0400 Body mass index (BMI) [Ratio] 23.17 kg/m2 Regan Edinson DRESSING ROOM PORTER-DATA INTEGRATION DEVELOPER Work Phone: [facility] 12-24-2022 16:30-0400 Body weight 61.24 kg Regan Edinson DRESSING ROOM PORTER-DATA INTEGRATION DEVELOPER Work Phone: [facility] 12-24-2022 16:30-0400 Diastolic blood pressure 68 mm[Hg] Regan Neves DRESSING ROOM PORTER-DATA INTEGRATION DEVELOPER Work Phone: [facility] 12-24-2022 16:30-0400 Heart rate 71 /min Regan Neves DRESSING ROOM PORTER-DATA INTEGRATION DEVELOPER Work Phone: [facility] 12-24-2022 16:30-0400 Systolic blood pressure 108 mm[Hg] Regan Edinson DRESSING ROOM PORTER-DATA INTEGRATION DEVELOPER Work Phone: [facility] 12-24-2022 11:37-0400 Body mass index (BMI) [Ratio] 23.22 kg/m2 Emile Armas MD Work Phone: [facility] 12-24-2022 11:37-0400 Body temperature 98.2 [degF] Emile Armas MD Work Phone: [facility] 12-24-2022 11:37-0400 Body weight 61.37 kg Emile Armas MD Work Phone: [facility] 12-24-2022 11:37-0400 Diastolic blood pressure 78 mm[Hg] Emile Armas MD Work Phone: [facility] 12-24-2022 11:37-0400 Heart rate 73 /min Emile Armas MD Work Phone: [facility] 12-24-2022 11:37-0400 Respiratory rate 16 /min Emile Armas MD Work Phone: [facility] 12-24-2022 11:37-0400 SaO2% (BldA) [Mass fraction] 99 % Emile Armas MD Work Phone: [facility] 12-24-2022 11:37-0400 Systolic blood pressure 123 mm[Hg] Emile Armas MD Work Phone: [facility] Encounters Encounter Date Encounter Type Care Provider Facility Start: 01-27-2024 End: 01-27-2024 Initial care visit [facility] Initial [facility] Comment on above: GA: 34w1d Start: 01-27-2024 End: 01-27-2024 ambulatory HERVE JO [facility] Start: 01-26-2024 End: 01-26-2024 Bamboo flowsheet Sammy Stu DO Work Phone: [facility] Start: 01-26-2024 End: 01-26-2024 Bamboo flowsheet Sammy Stu DO Work Phone: [facility] Start: 01-26-2024 End: 01-26-2024 flow sheet Sammy Stu DO Work Phone: [facility] Comment on above: Third trimester preg rohan; 34 weeks gestation of Start: 01-26-2024 End: 01-26-2024 ambulatory SAMMY STU [...] Bernard MD Work Phone: [facility] Comment on above: Ascending aorta dila tion ([facility]) (Primary Dx); 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 Start: 01-13-2024 End: 01-13-2024 ambulatory SAMMY R STU [facility] Start: 01-13-2024 End: 01-13-2024 ambulatory CHEPE PERAZA [facility] Start: 12-30-2023 End: 12-30-2023 Bamboo flowsheet Sammy Stu DO Work Phone: [facility] Start: 12-30-2023 End: 12-30-2023 Bamboo flowsheet Sammy Stu DO Work Phone: [facility] Start: 12-30-2023 End: 12-30-2023 ambulatory SAMMY STU Not Available Start: 12-30-2023 End: 12-30-2023 flow sheet Sammy Abrahamo DO Work Phone: [facility] Comment on above: 30 weeks gestation o f ; Third trimester ; Aortic stenosis of mother during ; Hypothyroid in , antepartum (CMS/HCC); Vaginal discharge during in second trimester; Encounter for screening for cervical length Start: 12-29-2023 End: 12-29-2023 ambulatory [facility] Start: 12-27-2023 End: 12-27-2023 Clinisync Result Encounter Sammy Abrahamo DO Work Phone: [facility] External Department Unsolicited Start: 12-27-2023 End: 12-27-2023 Clinisync Result Encounter Smamy Abrahamo DO Work Phone: [facility] [...] 12-09-2023 End: 12-09-2023 Emergency department patient visit [facility] Start: 11-26-2023 End: 11-26-2023 ambulatory ELLA NICOLE Not Available Start: 11-18-2023 End: 11-18-2023 ambulatory [facility] Valeriano [facility] Start: 10-31-2023 End: 10-31-2023 ambulatory [facility] Start: 10-30-2023 End: 10-30-2023 ambulatory [facility] Not Available Start: 10-20-2023 End: 10-20-2023 ambulatory SAMMYDashawn PERAZA [facility] Start: 10-07-2023 End: 10-07-2023 ambulatory CHEPE PERAZA [facility] Start: 09-30-2023 End: 09-30-2023 ambulatory ELLA NICOLE Not Available Start: 09-22-2023 End: 09-22-2023 Office outpatient new 45 minutes Latrice Hall MD Work Phone: [facility] Comment on above: Thyroid nodule (Prim subhash Dx) Start: 09-22-2023 ambulatory LATRICE HALL Facilit y:[facility] Start: 09-01-2023 End: 09-01-2023 ambulatory SAMMYDashawn ABRAHAMO Not Available Start: 07-31-2023 End: 07-31-2023 ambulatory DI PANCHAL Not Available Start: 06-20-2023 End: 06-20-2023 ambulatory [facility] Start: 06-02-2023 ambulatory HERVE Benavides ility:[facility] Start: 06-02-2023 End: 06-02-2023 Subsequent hospital visit by physician Herve Jimenez MD Work Phone: Department of Radiology Comment on above: Arrived Start: 05-27-2023 End: 05-27-2023 ambulatory DI PANCHAL Not Available Start: 05-23-2023 End: 05-23-2023 ambulatory HERVE JIMENEZ [facility] Start: 01-09-2023 End: 01-09-2023 Subsequent hospital visit by physician Emile Armas MD Work Phone: Department of Radiology Comment on above: Arrived Start: 01-09-2023 ambulatory HERVE Benavides ility:[facility] Start: 12-24-2022 End: 12-24-2022 Subsequent hospital visit by physician Regan Neves DRESSING ROOM PORTER-DATA INTEGRATION DEVELOPER Work Phone: [facility] [place] Comment on above: Arrived Start: 12-24-2022 ambulatory REGAN NEVES Facilit y:[facility] Start: 12-24-2022 End: 10-17-2023 Office outpatient new 45 minutes Emile Armas MD Work Phone: Department of Otolaryngology Comment on above: Lymphadenopathy (Alicia ramin Dx) Start: 12-24-2022 ambulatory SELF SELF Facility:[facility] Start: 11-20-2022 End: 11-20-2022 Office consultation new/estab patient 60 min Belle Barnard Damon DO Work Phone: [facility] [place] Comment on above: Encounter for precon ception consultation (Primary Dx); Bicuspid aortic valve Start: 11-20-2022 ambulatory [facility] Start: 08-15-2022 End: 08-15-2022 Subsequent hospital visit by physician Chepe Peraza MD Work Phone: Cardiovascular Imaging Lab [facility] Comment on above: Canceled (Cancel Kellogg son Not Listed - Please provide detailed information) Start: 05-21-2022 End: 05-22-2022 ambulatory Jake Foster MD Facility:[facility] Start: 06-05-2021 End: 06-05-2021 Postop follow up visit related to original px Charlotte Cárdenas MD Work Phone: [facility] Comment on above: Postop check (Primar y Dx) Start: 03-18-2018 End: 03-18-2018 Patient encounter procedure Darryn E reanna Work Phone: [facility] Comment on above: Other fatigue; Lymph adenopathy of head and neck Procedures Date Procedure Procedure Detail Performing Clinician Start: 01-26-2024 Urnls dip stick/tabl et rgnt non-auto w/o micrscp Sammy Stu DO Work Phone: Start: 01-14-2024 Urnls dip stick/tabl et rgnt non-auto w/o micrscp Ella SQUIRES Work Phone: Start: 12-30-2023 Urnls dip stick/tabl et rgnt non-auto w/o micrscp Sammy Stu DO Work Phone: Start: 12-27-2023 [facility] UA (CLEAN/CATCH) SENIOR ARCHITECT/DESIGN MANAGER/MICRO IF IND. Sammy Peraza DO Work Phone: Start: 12-17-2023 Urnls dip [...] esop hagus single contrast study Regan Neves DRESSING ROOM PORTER-DATA INTEGRATION DEVELOPER Work Phone: Plan of Treatment Date Care Activity Detail Author Start: 01-07-2034 DTaP,Tdap and Td Vaccines (6 - Td or Tdap) DTaP,Tdap and Td Vaccines (6 - Td or Tdap) [facility] Start: 09-29-2026 Screening for malign ant neoplasm of cervix Pap Smear [facility] Start: 01-26-2025 Adult BMI Screening Adult BMI Screen ing [facility] Start: 01-12-2025 Adult BMI Screening Adult BMI Screen ing [facility] Start: 01-12-2025 Tobacco Screening Tobacco Screening [facility] Start: 05-28-2024 End: 05-28-2024 Patient encounter procedure 05/28/2024 10:40 AM EDT Office Visit [facility] [address] [place] [address] Di Panchal PA [address] [place] [address] [facility] Start: 02-13-2024 End: 02-13-2024 Patient encounter procedure [facility] Start: 02-12-2024 End: 02-12-2024 Patient encounter procedure 02/12/2024 2:00 PM EST Appointment Jodie [facility] [address] [place] [phone] Angelapennyvero Marvin [facility] Start: 02-11-2024 End: 02-11-2024 Patient encounter procedure 02/11/2024 2:00 PM EST Routine [facility] [address] [place] [address] Sammy Peraza DO [address] [place] [address] [facility] Start: 02-11-2024 End: 02-11-2024 Telemedicine consultation with patient 02/11/2024 8:00 AM EST Telemedicine Maternal- Medicine at [facility] [address] [place] [phone] Duarte Bernard MD [address], [address] [place] [address] Maternal- Medicine at [facility] Start: 01-27-2024 End: 01-27-2024 ambulatory 01/27/2024 10:30 AM EST Initial [facility] [address] [place] [id number] [facility] Start: 01-26-2024 End: 04-27-2024 US MFM with or without consult US MFM with or without consult Imaging Routine Bicuspid aortic valve Congenital heart disease Ascending aorta dilation (CMS-HCC) Maternal cardiovascular disease affecting in third trimester Expected: 01/26/2024, Expires: 04/27/2024 [facility] Work Phone: Comment on above: Expected: 01/26/2024 , Expires: 04/27/2024 Start: 01-26-2024 End: 01-26-2024 Patient encounter procedure 01/26/2024 1:30 PM EST Routine [facility] [address] [place] [phone] Sammy Peraza DO [address] [facility] [place] [address] [facility] Start: 01-14-2024 End: 01-14-2024 Patient encounter procedure 01/14/2024 10:30 AM EST Routine [facility] [address] [place] [place] [address] Ella Nicole PA [address] [address] [facility] Start: 12-30-2023 End: 12-29-2024 US biophysical profile w non stress test US biophysical profile w non stress test Imaging Routine Aortic stenosis of mother during Hypothyroid in , antepartum ([facility]) Expected: 12/30/2023 (Approximate), Expires: 12/29/2024 [facility] Work Phone: Comment on above: Expected: 12/30/2023 (Approximate), Expires: 12/29/2024 Start: 12-30-2023 End: 12-29-2024 US for US OB AMNIOTIC FLUID VOLUME Imaging Routine Vaginal discharge during in second trimester Expected: 12/30/2023 (Approximate), Expires: 12/29/2024 [facility] Comment on above: Expected: 12/30/2023 (Approximate), Expires: 12/29/2024 Start: 12-30-2023 End: 12-29-2024 US Pelvis transvaginal US OB transvaginal Imaging Routine Encounter for screening for cervical length Expected: 12/30/2023 (Approximate), Expires: 12/29/2024 [facility] Comment on above: Expected: 12/30/2023 (Approximate), Expires: 12/29/2024 Start: 12-30-2023 End: 12-30-2023 Patient encounter procedure 12/30/2023 10:30 AM EDT Routine [facility] [address] [place] [address] Sammy Peraza DO [address] [place], [facility] Start: 12-17-2023 End: 12-17-2023 Patient encounter procedure 12/17/2023 10:20 AM EDT Routine [facility] [address] [place] [place] [address] Ella Nicole PA [address] [address] Arrived [facility] Comment on above: Arrived Start: 11-09-2023 Influenza vaccination O [facility] Start: 06-03-2023 ambulatory Ambulatory Facility:[facility] Start: 01-09-2023 End: 01-09-2023 ambulatory 01/09/2023 8:30 AM EDT Rehab Services Visit [facility] [address] [place] [address] [facility] Start: 01-09-2023 End: 01-09-2023 Patient encounter procedure 01/09/2023 8:30 AM EDT Appointment Department of Radiology [address] [place] [address] Department of Radiology Start: 12-24-2022 End: 12-25-2023 CT Neck W contrast IV U [facility] Comment on above: Expected: 12/24/2022 , Expires: 12/25/2023 1 Occurrences starti ng 12/24/2022 until 12/24/2022 Start: 12-24-2022 End: 12-25-2023 RF videography Hypopharynx and Esophagus Views W liquid and paste contrast PO during swallowing XR FLUORO MODIFIED BARIUM SWALLOW-ENT ONLY Imaging Routine Lymphadenopathy Expected: 12/24/2022, Expires: 12/25/2023 [facility] Comment on above: Expected: 12/24/2022 , Expires: 12/25/2023 Start: 11-08-2022 COVID-19 VACCINE ( season) COVID-19 VACCINE ( season) [facility] Start: 11-08-2022 Influenza vaccination O [facility] Start: 11-08-2020 Influenza vaccination INFLUENZA VACC INE (#1) [facility] Start: 03-27-2018 End: 03-27-2018 Ambulatory 03/27/2018 Appointment Ultrasound Darryn Kennedy, DATA INTEGRATION DEVELOPER [address] [place] [address] [phone] Department of Radiology Start: 03-18-2018 End: 03-18-2019 US scan of neck US NECK SOFT TISSUE Routine Other fatigue Lymphadenopathy of head and neck Expected: 03/18/2018, Expires: 03/18/2019 [facility] Work Phone: Comment on above: Expected: 03/18/2018 , Expires: 03/18/2019 Start: 11-08-2017 Influenza vaccination INFLUENZA VACC INE (#1) [facility] Work Phone: Start: 2015 Screening for malign ant neoplasm of cervix [facility] Start: 2013 Hepatitis B vaccination HEP B VACCINE (1 of 3 - 19+ 3-dose series) [facility] Start: 2013 Third diphtheria, tetanus and acellular pertussis (DTaP) vaccination TDAP (ADULT) [facility] Start: 02-04-2012 Adult BMI Follow Up Plan Adult BMI F ollow Up Plan [facility] Start: 02-04-2012 GONORRHEA SCREEN GONORRHEA SCREEN [facility] Work Phone: Start: 02-04-2012 Tetanus vaccination TETANUS [facility] Start: 2010 Screening for Chlamy kyle trachomatis CHLAMYDIA SCREEN [facility] Work Phone: Start: 2009 HIV screening HIV SCREENING DISCUSSI ON [facility] Start: 2007 HIV screening HIV SCREENING DISCUSSI ON [facility] Work Phone: Start: 2006 Depression Screening Depression Yvette new [facility] Start: 03-13-2005 Tetanus vaccination TETANUS [facility] Start: 2005 Vaccination for jelly n papillomavirus HPV VACCINE ADOL (1 - Female 3-dose series) [facility] Work Phone: Start: 02-04-2000 PNEUMOCOCCAL VACCINE SERIES (1 of 2 - PCV) PNEUMOCOCCAL VACCINE SERIES (1 of 2 - PCV) [facility] Start: 1999 COVID-19 VACCINE (1) COVID-19 VACCIN E (1) [facility] Start: 1994 COVID-19 VACCINE (#1) COVID-19 VACCI NE (#1) [facility] Start: 1994 Hepatitis C antibody , confirmatory test HEPATITIS C VIRUS SCREENING [facility] Start: 1994 Hepatitis C screening HEPATITI S C VIRUS SCREENING [facility] CHLAMYDIA TRACHOMATI S (GENITO/STI) CHLAMYDIA TRACHOMATIS (GENITO/STI) Lab Routine Vaginal discharge during in second trimester Ordered: 12/30/2023 [facility] Comment on above: Ordered: 12/30/2023 End: 05-25-2024 nonstress test - Maternal Medicine nonstress test - Maternal Medicine OB Routine Bicuspid aortic valve Congenital heart disease Ascending aorta dilation (CMS-HCC) Maternal cardiovascular disease affecting in third trimester Per Treatment Plan for 6 Occurrences starting 01/26/2024 until 05/25/2024 [facility] Comment on above: Per Treatment Plan f or 6 Occurrences starting 01/26/2024 until 05/25/2024 Laryngoscopy flexibl e diagnostic SC LARYNGOSCOPY FLEXIBLE DIAGNOSTIC SC Charge Routine Lymphadenopathy Ordered: 12/24/2022 [facility] Comment on above: Ordered: 12/24/2022 Neisseria gonorrhoea e DNA [Presence] in Unspecified specimen by VANESSA with probe detection Neisseria gonorrhea DNA probe, direct Lab Routine Vaginal discharge during in second trimester Ordered: 12/30/2023 [facility] Comment on above: Ordered: 12/30/2023 SURESWAB(R) ADVANCED VAGINITIS PLUS, TMA SURESWAB(R) ADVANCED VAGINITIS PLUS, TMA Pathology and Cytology Routine Vaginal discharge during in second trimester Ordered: 12/30/2023 [facility] Comment on above: Ordered: 12/30/2023 End: 06-02-2023 US Thyroid gland [facility] Work Phone: Comment on above: 1 Occurrences starti ng 06/02/2023 until 06/02/2023 Immunizations Immunization Date Immunization Notes Care Provider Fa cili 12-25-2022 influenza virus vaccine, unspecified formulation Latrice Hall MD Work Phone: [facility] 01-08-2016 influenza virus vaccine, unspecified formulation Charlotte Cárdenas MD Work Phone: [facility] Payers Date Payer Category Payer Unknown [id number] 2023 Commercial Managed C are - POS [employer] [id number] 2023 Managed Care HMO (unspecified) [id number] 2023 Private Health Insurance [employer] Vero ETNA [id number] 2023-Present [address] [place] [address] [id number] 2023 Private Health Insurance [id number] 2021 Unknown [id number] 2020 Unknown [id number] 1.13.17 2.2.7.3.334811.315 2020 Unknown [id number] 1994 Unknown [id number] 2.16.840.1.075069.3.57 9.2.196 1994 Unknown [id number] 2.16.840.1.171934.3.57 9.2.196 1994 Unknown [id number] 2.16.840.1.245270.3.57 9.2.196 1994 Unknown [id number] 2.16.840.1.909294.3.57 9.2.1260 1994 Unknown [id number] 2.16.840.1.608851.3.57 9.2.594 1994 Unknown [id number] 2.16.840.1.649010.3.57 9.2.594 1994 Unknown [id number] 2.16.840.1.004940.3.57 9.2.594 1994 Unknown [id number] 2.16.840.1.453106.3.57 9.2.594 1994 Unknown [id number] 2.16.840.1.837668.3.57 9.2.594 1994 Unknown [id number] 2.16.840.1.871634.3.57 9.2.594 1994 Unknown [id number] 2.16.840.1.962958.3.57 9.2.594 1994 Unknown [id number] 2.16.840.1.863887.3.57 9.2.594 1994 Unknown [id number] 2.16.840.1.158181.3.57 9.2.173 1994 Unknown [id number] 2.16.840.1.655632.3.57 9.2.173 1994 Unknown [id number] 2.16.840.1.334108.3.57 9.2.1259 1994 Unknown [id number] 2.16840.1.531192.3.57 9.2.1259 1994 Unknown [id number] 2.16840.1.667583.3.57 9.2.1259 1994 Unknown [id number] 2.16840.1.232247.3.57 9.2.1259 1994 Unknown [id number] 2.16840.1.833367.3.57 9.2.1259 1994 Unknown [id number] 2.840.1.308683.3.57 9.2.1259 1994 Unknown [id number] 2.16840.1.420903.3.57 9.2.1259 1994 Unknown [id number] 2.16840.1.833081.3.57 9.2.1259 1994 Unknown [id number] 2.16840.1.459620.3.57 9.2.1259 1994 Unknown [id number] 2.840.1.728283.3.57 9.2.1259 1994 Unknown [id number] 2.16840.1.330079.3.57 9.2.1286 1994 Unknown [id number] 2.16840.1.836328.3.57 9.2.1286 1994 Unknown [id number] 2.16840.1.236095.3.57 9.2.1286 1994 Unknown [id number] 2.16840.1.629193.3.57 9.2.1286 1994 Unknown [id number] 2.16840.1.300872.3.57 9.2.1286 1994 Unknown [id number] 2.16.840.1.333570.3.57 9.2.1286 1994 Unknown [id number] 2.16.840.1.235071.3.57 9.2.1286 1994 Unknown [id number] 2.16.840.1.350729.3.57 9.2.1286 1994 Unknown [id number] 2.16.840.1.944237.3.57 9.2.1286 Social History Date Type Detail Facility Tobacco smoking stat us WAIS Unknown if ever smoked [facility] Work Phone: Start: 1994 Sex Assigned At Not on file [facility] Work Phone: Start: 04-21-2018 End: 05-27-2023 Tobacco smoking status WAIS Never smoked tobacco [facility] Start: 04-21-2018 End: 05-27-2023 Tobacco use and exposure Smokeless tobacco non-user [facility] Start: 06-05-2021 End: 09-22-2023 Alcohol intake Current drinker of alcohol (finding) [facility] Start: 04-15-2020 History SDOH Alcohol Frequency 2 [facility] Start: 04-15-2020 History SDOH Alcohol Std Drinks 1 [facility] Start: 05-10-2021 History SDOH Alcohol Comment 1-2 drinks per month [facility] Start: 05-26-2021 End: 06-05-2021 Exposure to SARS-CoV-2 (event) Not sure [facility] Start: 04-15-2020 End: 05-27-2023 History of Social function [facility] Start: 04-15-2020 End: 05-27-2023 Alcohol Use Disorder Identification Test - Consumption [AUDIT-C] [facility] How often to you hav e a drink containing alcohol? Monthly or less [facility] How many standard dr inks containing alcohol do you have on a typical day? 1 or 2 [facility] How often do you hav e 6 or more drinks on 1 occasion? Never [facility] Start: 03-16-2017 Gender identity Identifies as female gender (finding) [facility] Adolescent depressio n screening assessment 0 [facility] Start: 1994 Sex assigned at Female [facility] Start: 11-26-2023 End: 01-26-2024 Alcoholic beverage intake Ex-drinker (finding) [facility] Start: 06-16-2023 [facility] Start: 06-29-2020 Alcohol Comment rarely [facility] Start: 10-11-2014 Sex Female (finding) [facility] Clinical Notes 06-05-2021 to 01-27-2024 Karina Trinh, - 01/27/2024 10:30 AM Krista Joseph MD - 01/27/2024 10:30 AM Vicky Stephens RN - 01/27/2024 10:30 AM Leigh Daly LPN - 01/26/2024 1:30 PM EST Note Date & Type Note Facility 01-27-2024 History of Present illness Narrative [facility] Initial High Risk Obstetrics Visit Initial HROB Visit 34w1d Dated by: 8w5d US consistent with LMP Is transferring from other provider Records have been received/reviewed Patient Active Problem List Diagnosis Bicuspid aortic valve Palpitations Ocular migraine Dizziness Congenital heart disease Ascending aorta dilation ([facility]) Current Outpatient Medications on File Prior to [...] patient Rh positive Last cervical cytology in [facility]- Pt reports getting on September 30, [...] candidate for vaginal delivery. Consult Dr. Peraza, dining room manager at time of delivery. Delivery between 39-40w. Telemetry in labor and 24hrs PP. 2nd stage assist with forceps or vacuum (per Dr. Crowley note). Weekly DVP weekly NST starting at 32w. Growth Q4w. Next would be in 2 weeks. Getting testing at [facility] on 01/12: recommends passive 2nd stage [...] cardiac symptoms. E. Will reach out to [facility] for 28w labs, 1hr gtt, pap results [...] and the clinical opinion of the practitioner. [facility] Initial High Risk Obstetrics Visit Initial HROB Visit CC: transfer of care 34w0d Dated by: 8 week US consistent with LMP Is transferring from other provider Records have been received/reviewed Patient Active Problem List Diagnosis Bicuspid aortic valve Palpitations Ocular migraine Dizziness Congenital heart disease Ascending aorta dilation ([facility]) Hypothyroidism affecting care in third trimester Current [...] Problem List Active Problems Ascending aorta dilation ([facility]) Relevant Orders US MFM with or without [...] discharge. Denies lower extremity swelling. Pulse-60 Urine ots-wskrucjyla-ztkzk. Oriented to office and contact information given. Verbalizes understanding. Declines RSV vaccine. documented in this encounter [facility] 01-26-2024 History of Present illness Narrative Reason for Appointment: Patient ID: Lisa Cardenas is a 28 y.o. female who presents for Routine Visit Patient presents today for Return OB appointment. MEDICATIONS Current Outpatient Medications Medication Instructions omega-3 1000 MG capsule capsule Natural Bridge-3 Fatty Acids (OMEGA 3 PO) Take by [...] Sister Lakisha Barry Hypertension Father's Brother Tucker Casey Seizures Brother Sean Casey Stroke Mother's Brother Adelso Holder SURGICAL HISTORY Past Surgical History: Procedure Laterality Date ABDOMINAL SURGERY March 2019 MR ANGIOGRAM CHEST WO IV CONTRAST 08/15/2022 MR ANGIOGRAM CHEST WO IV CONTRAST 08/15/2022 REVIEW OF SYSTEMS Review of Systems: Review of Systems All other systems reviewed and are negative. OBJECTIVE Objective: Physical Exam Constitutional: Appearance: Normal [...] nursing note reviewed. Exam conducted with a coo & co founder present. Vitals: Estimated body mass index is 28.63 kg/m as calculated from the following: Height as of 05/27/22: 5' 4 . Weight as of this encounter: 166 lb 12.8 oz. BP: 100/68 Patient's last menstrual period was 06/02/2023. ASSESSMENT & PLAN ICD-10-CM 1. Third trimester Z34.93 POCT urinalysis dipstick manually resulted 2. 34 weeks gestation of Z3A.34 POCT urinalysis dipstick manually resulted Patient presents today for a routine obstetrics appointment. Patient is currently 34w0d with a Estimated Date of Delivery: 03/08/24. Patient has her first appointment with high school industrial arts teacher tomorrow for Complete Transfer of Care for remainder of as recommended by [facility]. Patient to RTC in 2 weeks unless told otherwise by [facility]. Documented by Radha Daly LPN on behalf of: Sammy Peraza DO documented in this encounter [facility] 01-14-2024 History of Present illness Narrative Reason for Appointment: Patient ID: Lisa Cardenas is a 28 y.o. female who presents for Routine Visit Patient presents today for Return OB appointment. MEDICATIONS Current Outpatient Medications Medication Instructions omega-3 1000 MG capsule capsule Natural Bridge-3 Fatty Acids (OMEGA 3 PO) Take by [...] Shagufta Walkere Breast cancer Father's Sister Diana Latonya Hyperlipidemia Father's Sister Dianagwen Nickon Hypertension Father's Sister Diana Latonya Hypertension Father's Sister Lakisha Barry Hypertension Father's [...] TAVIA Parsons documented in this encounter [facility] 01-13-2024 History of Present illness Narrative Headache/epigastric [...] echocardiography in 2020. Patient has an established dining room manager Bicommissural and bicuspid aortic valve with mild [...] remnant in the patient. She has seen catalyst operator chief. No future testing or ultrasound required per Endo. 4. 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 Currently the patient has no complaints. The patient denies nausea, vomiting, abdominal pain, vaginal bleeding, SOB or chest pain. Patient Active Problem List Diagnosis Bicuspid aortic valve Palpitations Ocular migraine Dizziness Congenital heart disease Ascending aorta dilation ([facility]) ALLERGIES: Allergies Allergen Reactions Doxycycline ulercative esophagus [...] Complete transfer of care To the [facility] st[facility] at [place] [facility] and delivery at [facility]. 4. Consult to [facility] done today 5. Continue testing at her OB office 6. Delivery at 39 or 40 weeks gestation at [facility] 7. Stable and therefore patient is still a candidate for vaginal delivery. 8. Dr. Peraza Cardiology need to be notified and consulted formally at the time of induction of labor Thank you for allowing me to participate in Lisa Cardenas care. If there are any questions, please do not hesitate to call me. Sincerely, DUARTE BERNARD MD documented in this encounter [facility] 01-13-2024 Note Lonnie Peres [address] [facility] [address] January 13, 2024 Patient: Lisa Cardenas Date [...] on a single (more content not included)... [facility] 12-30-2023 History of Present illness Narrative Reason for Appointment: Patient ID: Lisa Cardenas is a 28 y.o. female who presents for Routine Visit Patient presents today for Return OB appointment. MEDICATIONS Current Outpatient Medications Medication Instructions Natural Bridge-3 Fatty Acids (OMEGA 3 PO) Take by [...] Sister Diana Rileynson Hypertension Father's Sister Diana Rileynson Hypertension Father's Sister Lakisha Barry Hypertension Father's Brother Tucker Casey Seizures [...] nursing note reviewed. Exam conducted with a coo & co founder present. Vitals: Estimated body mass index is [...] test I35.0 4. Hypothyroid in , antepartum ([facility]) O99.280 US biophysical profile w non stress [...] Peraza DO documented in this encounter [facility] 12-17-2023 History of Present illness Narrative Reason for Appointment: Patient ID: Lisa Cardenas is a 28 y.o. female who presents for Routine Visit Patient presents today for Return OB appointment. MEDICATIONS Current Outpatient Medications Medication Instructions Natural Bridge-3 Fatty Acids (OMEGA 3 PO) Oral Vit-DSS-Fe [...] Father Estrada Peña Hypertension Maternal Grandfather Michael Tiwariner Hypertension Paternal Grandmother Shagufta Lamffee Breast cancer Father's Sister Diana Hanks Hyperlipidemia Father's Sister Diana Hanks Hypertension Father's Sister Diana Hanks Hypertension Father's Sister Lakishanatasha Barry Hypertension Father's Brother Tucker Casey Seizures Brother Sean Casey Stroke Mother's Brother Adelso Glory SURGICAL HISTORY Past Surgical History: Procedure Laterality [...] nursing note reviewed. Exam conducted with a coo & co founder present. Vitals: Estimated body mass index is [...] TAVIA Parsons documented in this encounter [facility] 10-07-2023 Note Lonnie Peres [address] [facility] [phone] October 07, 2023 Patient: Lisa Cardenas Date [...] use. She is scheduled to fly to [place] to see her in the near future [...] Normal biventricular systoli (more content not included)... [facility] 10-07-2023 Note Outpatient echo Must use antibiotic for dental procedures May fly Passive second stage deliver in [facility] 09-22-2023 History of Present illness Narrative RFC: Patient with thyroid nodule. Most recent US showing nodule TI-RADS 3 Regan Neves, DRESSING ROOM PORTER-* HPI: Ms. Cardenas is a 28 y.o. [...] Hyperlipidemia, Hyperthyroidism, Hypogonadism male, Hypothyroidism, Liver disease, CA (myocardial infarction), Migraine, Multinodular goiter, LADY (obstructive [...] hours as needed. lidocaine viscous-Alum & Mag Kuaypryxi-Ncxiop-hwzbneksivWEXBO oral mouthwash Swish and swallow 15mL by mouth every 6 hours as needed. norgestimate-ethinyl estradiol (Sprintec 28) 0.25-35 MG-MCG tablet Take 1 tablet by mouth at bedtime. nystatin [id number] UNIT/ML oral suspension Swish and swallow 10 [...] Echogenicity: Hyperechoic or isoechoic (1 point) Shape: Gxcub-lkpr-xmnw (0 points) Margin: Smooth (0 points) Echogenic [...] Fellow, Division of Endocrinology, Diabetes, and Metabolism [facility] [place] [address] No follow-ups on file. Patient has verified [...] Fellow, Division of Endocrinology, Diabetes, and Metabolism [facility] [address] documented in this encounter [facility] 09-22-2023 Instructions Latrice Hall MD - 09/22/2023 1:30 PM EDT It was great seeing you today! Division of Endocrinology Outpatient Care [facility] Follow-up appointments: Please arrive at least [...] Any non-urgent results will be relayed via [employer] if you have signed up for this [...] help perpare you for your future visits: [email or web address] --> Patient Care section. Sincerely, Latrice Hall MD Fellow, Division of Endocrinology, Diabetes, and Metabolism [facility] [address] [place] [address] documented in this encounter [facility] 09-22-2023 Procedure note Associated Ord er(s): CHG US SOFT TISSUE HEAD & NECK REAL TIME IMGE DOCM Ms. Cardenas was seen and examined with Dr. Hall, I independently verified the findings on US and agree with the documented report - thyroid ultrasound report appears in the notes tab. [facility] 09-22-2023 Procedure note Associated Ord er(s): CHG US SOFT TISSUE HEAD & NECK REAL TIME IMGE DOCM Ms. Cardenas was seen and examined with Dr. Hall, I independently verified the findings on US and agree with the documented report - thyroid ultrasound report appears in the notes tab. documented in this encounter [facility] 12-24-2022 History of Present illness Narrative Chief Complaint: Chief Complaint Patient presents with New Patient Reports right side of neck with questionable swelling, continues to have problems with food getting stuck. Has to wash down food with liquids. HPI: Lisa Cardenas is a 27 y.o. female smoker / non-smoker who presents 12/24/22 to the [facility] Head and Neck Surgical Oncology [...] Laterality: N/A; Surgeon: Ramin Denney MD; [facility] Social History [...] 1 Bottle 0 lidocaine viscous-Alum & Mag Wucyjffeh-Cycyca-cvatugzlffVSJJT oral mouthwash Swish and swallow 15mL by mouth every 6 hours as needed. 240 mL 0 norgestimate-ethinyl estradiol (Sprintec 28) 0.25-35 MG-MCG tablet Take 1 tablet by mouth at bedtime. nystatin 371503 UNIT/ML oral suspension Swish and swallow 10 [...] / non-smoker who presents 12/24/22 to the [facility] Head and Neck Surgical Oncology [...] 1 Bottle 0 lidocaine viscous-Alum & Mag Uxbdgoneg-Ozfqdh-wgcwhumyioDYISK oral mouthwash Swish and swallow 15mL by mouth every 6 hours as needed. 240 mL 0 norgestimate-ethinyl estradiol (Sprintec 28) 0.25-35 MG-MCG tablet Take 1 tablet by mouth at bedtime. nystatin [id number] UNIT/ML oral suspension Swish and swallow 10 [...] are not concerning. documented in this encounter [facility] 11-20-2022 History of Present illness Narrative Maternal- Medicine (High Risk Obstetrics) Consultation Indication for consultation: Congenital Bicuspid aortic valve Referring Provider: Herve Jimenez MD History Lisa Cardenas is a 27yo G0 LMP [id number] using nothing for contraception who presents for [...] [facility]. She does not currently have an plastic jig and fixture builder. Ms. Lisa Cardenas has the following problems [...] Laterality: N/A; Surgeon: Ramin Denney MD; Location: [facility] MAIN OR WISDOM TEETH EXTRACTION - [...] 1 Bottle 0 lidocaine viscous-Alum & Mag Tkgkortbi-Oadrbv-bhptbplbpnHJVAL oral mouthwash Swish and swallow 15mL by mouth every 6 hours as needed. 240 mL 0 norgestimate-ethinyl estradiol (Sprintec 28) 0.25-35 MG-MCG tablet Take 1 tablet by mouth at bedtime. nystatin 563201 UNIT/ML oral suspension Swish and swallow 10 [...] . --. SCAN INFO ======= GENERAL SCANNER WEIGHT LOSS CONSULTANT: [employer] MODEL: [employer] PULSE SEQUENCES: SSFP cine, HASTE morphology, 3D [...] aortic valve and has been followed by [facility]. The patient is currently asymptomatic from a cardiac standpoint, but is at risk for aortic dissection (especially given known ascending aortic dilation), heart failure, CA, and arrhythmias due to expected cardiovascular changes [...] and severity of complications: Recommendations during - POCKET OPERATOR referral for multi-disciplinary care coordination - Baseline [...] would be appropriate for co-managed care with [facility] for ultrasounds and visits every trimester and that she should contact and establish care obstetrical care with [facility] general plastic jig and fixture builder practice once has a positive test. Thank [...] Division of Maternal Medicine [facility] documented in this encounter [facility] 06-05-2021 Instructions Charlotte Cárdenas MD - 06/05/2021 11:42 AM EDT ASSESSMENT/PLAN: Status post tonsillectomy Healing well Pathology benign Followup as needed documented in this encounter [facility] 06-05-2021 History of Present illness Narrative [...] Followup as needed documented in this encounter [facility] Evaluation note Diagnosis Postop check- Primary Follow-up examination, following unspecified surgery [facility] Encounter for preconception consultation- Primary Bicuspid aortic valve Congenital insufficiency of aortic valve [facility] Diagnosis Lymphadenopathy- Primary Enlargement of lymph nodes [facility] Diagnosis Lymphadenopathy Enlargement of lymph nodes [facility] Diagnosis Lymphadenopathy Enlargement of lymph nodes [facility] Diagnosis Thyroid nodule Nontoxic uninodular goiter [facility] Diagnosis Thyroid nodule- Primary Nontoxic uninodular goiter [facility] Diagnosis 28 weeks gestation of Third trimester state, incidental documented in this encounter [facility]* Diagnosis 30 weeks gestation of Third trimester state, incidental Aortic stenosis of mother during Hypothyroid in , antepartum (CMS/HCC) Vaginal discharge during in second trimester Encounter for screening for cervical length documented in this encounter [facility]* Diagnosis Ascending aorta dilation (CMS-HCC)- Primary Thoracic aneurysm without mention of rupture 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 [facility] Diagnosis Third trimester state, incidental 32 weeks gestation of documented in this encounter [facility]* Diagnosis Maternal cardiovascular disease affecting in third trimester- Primary Bicuspid aortic valve Congenital insufficiency of aortic valve Palpitations Congenital heart disease Unspecified congenital anomaly of heart Ascending aorta dilation (CMS-HCC) Thoracic aneurysm without mention of rupture Hypothyroidism affecting , antepartum 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 [facility] Diagnosis Third trimester state, incidental 34 weeks gestation of documented in this encounter [facility] Discharge instructions* Attachments The following attachments cannot be sent through Care Everywhere. * [facility] AMB SMOKING CESSATION LINKS [facility] Reason for Referral Status Reason Specialty Diagnoses / Procedures Referred By Contact Referred To Contact New Request Diagnoses Other fatigue Lymphadenopathy of head and neck Procedures US NECK SOFT TISSUE Darryn Kennedy CNP [address] [place] [address] Specialty Diagnoses / Procedures Referred By Contac t Referred To Contact Diagnoses Lymphadenopathy Procedures XR FLUORO MODIFIED BARIUM SWALLOW-ENT ONLY CHG RADIOLOGIC EXAM ESOPHAGUS SINGLE CONTRAST STUDY Regan Neves APRN-CNP [address] [place] [phone] Referral ID Status Reason Start Date Expiration Date V isits Requested Visits Authorized [id number] Auth Not Needed 12/24/2022 01/18/2024 1 1 Specialty Diagnoses / Procedures Referred By Contac t Referred To Contact Diagnoses Lymphadenopathy Regan Neves APRN-CNP [address] [place] [phone] Referral ID Status Reason Start Date Expiration Date V isits Requested Visits Authorized [id number] Pending Review 12/24/2022 01/18/2024 1 1 Specialty Diagnoses / Procedures Referred By Contac t Referred To Contact Diagnoses Lymphadenopathy Procedures CT NECK WITH CONTRAST SC CT NECK TISSUE CONTRAST Regan Neves, DRESSING ROOM PORTER-DATA INTEGRATION DEVELOPER [address] [place] [address] Referral ID Status Reason Start Date Expiration Date Visits Re quested Visits Authorized [id number] Closed 12/24/2022 01/18/2024 1 1 Referral ID Status Reason Start Date Expiration Date Visits Re quested Visits Authorized [id number] Closed 12/24/2022 01/18/2024 1 1 Specialty Diagnoses / Procedures Referred By Contac t Referred To Contact Diagnoses Thyroid nodule Procedures US THYROID SC US,HEAD/NECK TISSUES,REAL TIME Herve Jimenez MD [address] [place] [address] [facility] [address] [place] [address] Referral ID Status Reason Start Date Expiration Date V isits Requested Visits Authorized [id number] New Request 05/27/2023 06/20/2024 1 1 Specialty Diagnoses / Procedures Referred By Contac t Referred To Contact Diagnoses Thyroid nodule Procedures US [facility] Andres Torres MD [address] [facility] [address] [place] [address] Referral ID Status Reason Start Date Expiration Date V isits Requested Visits Authorized [id number] New Request 09/22/2023 10/16/2024 1 1 Assessments [...] section and content) DATE CREATED AUTHOR 08/07/2020 [facility] DATE CREATED AUTHOR AUTHOR'S ORGANIZ ATION 05/28/2022 [facility] DATE CREATED AUTHOR AUTHOR'S ORGANIZ ATION 05/24/2023 [facility] DATE CREATED AUTHOR AUTHOR'S ORGANIZ ATION 09/26/2023 [facility] DATE CREATED AUTHOR AUTHOR'S ORGANIZ ATION 12/17/2023 [facility] DATE CREATED AUTHOR AUTHOR'S ORGANIZ ATION 01/16/2024 [facility] DATE CREATED AUTHOR AUTHOR'S ORGANIZ ATION 01/28/2024 [facility] EPIC DATE CREATED AUTHOR AUTHOR'S ORGANIZ ATION 01/29/2024 [facility] Reason for Visit (unrecogniz ed section [...] W/O FOL W/CONT, CHEST Chepe Peraza MD [address] [place] [address] [facility] [address] [place] [address] Referral ID Status Reason Start Date Expiration Date V isits Requested Visits Authorized [id number] Auth Not Needed 05/29/2022 06/23/2023 1 1 [...] Emile Armas MD [address] [place] [phone] Referral ID Status Reason Start Date Expiration Date Visits Re quested Visits Authorized [id number] Closed 12/24/2022 01/18/2024 1 1 Specialty Diagnoses / Procedures Referred By Contac t Referred To Contact Diagnoses Lymphadenopathy Procedures CT NECK WITH CONTRAST SC CT NECK TISSUE CONTRAST Regan Neves, DRESSING ROOM PORTER-DATA INTEGRATION DEVELOPER [address] [place] [address] Referral ID Status Reason Start Date Expiration Date Visits Re quested Visits Authorized [id number] Closed 12/24/2022 01/18/2024 1 1 Specialty Diagnoses / Procedures Referred By Contac t Referred To Contact Diagnoses Lymphadenopathy Procedures XR FLUORO MODIFIED BARIUM SWALLOW-ENT ONLY CHG RADIOLOGIC EXAM ESOPHAGUS SINGLE CONTRAST STUDY Regan Neves, DRESSING ROOM PORTER-DATA INTEGRATION DEVELOPER [address] [place] [phone] Referral ID Status Reason Start Date Expiration Date Visits Re quested Visits Authorized [id number] Closed 12/24/2022 01/18/2024 1 1 Specialty Diagnoses / Procedures Referred By Contac t Referred To Contact Diagnoses Thyroid nodule Procedures US THYROID SC US,HEAD/NECK TISSUES,REAL TIME Herve Jimenez MD [address] [place] [address] [facility] [address] [place] [address] Referral ID Status Reason Start Date Expiration Date V isits Requested Visits Authorized [id number] New Request 05/27/2023 06/20/2024 1 1 Reason Comments Thyroid Nodule Specialty Diagnoses / Procedures Referred By Contac t Referred To Contact Endocrinology, Diabetes & Metabolism Diagnoses Thyroid nodule Regan Neves, DRESSING ROOM PORTER-DATA INTEGRATION DEVELOPER [address] [place] [phone] Referral ID Status Reason Start Date Expiration Date V isits Requested Visits Authorized [id number] Pending Review 06/04/2023 06/28/2024 1 1 Reason Comments Routine Visit Reason Comments aortic root dilation aortic stenosis Reason Comments Routine Visit Specialty Diagnoses / Procedures Referred By Emanuel rodriguez Referred To Contact Obstetrics & Gynecology / Obstetrics and Gynecology Diagnoses Ascending aorta dilation ([facility]) 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 Duarte Bernard MD [address] [place] [address] Phone: tel: fax: [facility] [address] [place] [address] Phone: tel: fax: Referral ID Status Reason Start Date Expiration Date Visits Requested Visits Authorized [id number] Pending Review Specialty Services Required 01/13/2024 01/12/2025 1 1 Care Teams (unrecognized sec tion and content) Artifacts Conservator Relationship Specialty Start Date End Date Herve Jimenez MD [address] [place] [address] PCP - General Family Medicine 09/23/19 Chepe Peraza MD [facility] [place] [address] Retort Press Operator Pediatrics 04/30/21 Artifacts Conservator Relationship Specialty Start Date End Date Herve Jimenez MD [address] [place] [address] PCP - General Family Medicine 09/23/19 Chepe Peraza MD [address] [place] [address] Retort Press Operator Pediatrics 04/30/21 Artifacts Conservator Relationship Specialty Start Date End Date Herve Jimenez MD [address] [place] [address] PCP - General Family Medicine 09/23/19 Chepe Peraza MD [address] [place] [address] Retort Press Operator Pediatrics 04/30/21 Artifacts Conservator Relationship Specialty Start Date End Date Herve Jimenez MD [address] [place] [address] PCP - General Family Medicine 09/23/19 Chepe Peraza MD [address] [place] [address] Retort Press Operator Pediatrics 04/30/21 Artifacts Conservator Relationship Specialty Start Date End Date Herve Jimenez MD [address] [place] [address] PCP - General Family Medicine 09/23/19 Chepe Peraza MD [address] [place] [address] Retort Press Operator Pediatrics 04/30/21 Artifacts Conservator Relationship Specialty Start Date End Date Herve Jimenez MD [address] [place] [address] PCP - General Family Medicine 09/23/19 Chepe Peraza MD [address] [place] [address] Retort Press Operator Pediatrics 04/30/21 Artifacts Conservator Relationship Specialty Start Date End Date Herve Jimenez MD [address] [place] [address] PCP - General Family Medicine 09/23/19 Chepe Peraza MD [address] [place] [address] Retort Press Operator Pediatrics 04/30/21 Artifacts Conservator Relationship Specialty Start Date End Date Herve Jimenez MD [address] [place] [address] PCP - General Family Medicine 09/23/19 Chepe Peraza MD [address] [place] [address] Retort Press Operator Pediatrics 04/30/21 Artifacts Conservator Relationship Specialty Start Date End Date Herve Jimenez MD [address] [place] [address] PCP - General Family Medicine 06/29/20 Artifacts Conservator Relationship Specialty Start Date End Date Herve Jimenez MD [address] [place] [address] PCP - General Family Medicine 06/29/20 FOR [...] BE BASED ON THE PRIMARY CLINICAL RECORDS. [employer] [facility]. provides no warranty or guarantee of the accuracy or completeness of information in this document.
--- NOTE | 2024-02-11 10:03 | US_ITS ---
[address] [address] Patient Name: ADRY LEVY MRN: [id number] date: 1995 Sex: F Assigned Patient Location: [facility] Current Patient Location: Accession/Order Number: [id number] Exam Date: 02/11/2024 10:00 Report Date: 02/11/2024 10:56 At the request of: RICKY PHAM Procedure: US OB BPP w non-stress EXAMINATION: US OB BPP w non-stress HISTORY: aortic stenosis COMPARISON: No relevant comparison available. TECHNIQUE: Ultrasound biophysical profile was performed in the radiology department. non-reactive stress testing was performed by nursing staff in the birthing center. FINDINGS: BREATHING MOVEMENTS: 2 GROSS BODY MOVEMENTS: 2 TONE: 2 QUALITATIVE AMNIOTIC FLUID VOLUME: 2 PRESENTATION: CEPHALIC HEART RATE: 135 bpm AMNIOTIC FLUID VOLUME: 20.0 cm GESTATIONAL AGE: 36 weeks 2 days US/US OB BPP w non-stress IMPRESSION: Total biophysical profile score: 8 Electronically authenticated by: EULOGIO BARCLAY Date: 02/11/2024 10:56
[2024-02-11 10:40] VITALS: BP 115/72; PULSE 85
== END 2024-02-11 11:35 | disposition home or self-care (01) ==
LOC: US 06:26 → FBCO 06:36 → FBC 10:02
PROVIDERS: Visit Provider Obstetrics & Gynecology
DX: Z36.89 Encounter for other specified antenatal screening (principal); O99.419 Diseases of the circulatory system complicating pregnancy, unspecified trimester; I35.0 Nonrheumatic aortic (valve) stenosis; O99.280 Endocrine, nutritional and metabolic diseases complicating pregnancy, unspecified trimester; E03.9 Hypothyroidism, unspecified; O26.892 Other specified pregnancy related conditions, second trimester; N89.8 Other specified noninflammatory disorders of vagina; Z3A.36 36 weeks gestation of pregnancy
CPT/HCPCS: 76818

== ENCOUNTER 2024-02-18 06:02 | Outpatient (OUT) | payer OTHER, SELFPAY ==
--- NOTE | 2024-02-18 | US_ITS ---
[address] [address] Patient Name: ADRY LEVY MRN: [id number] date: 1995 Sex: F Assigned Patient Location: [facility] Current Patient Location: [facility] Accession/Order Number: [id number] Exam Date: 02/18/2024 10:09 Report Date: 02/18/2024 11:28 At the request of: RICKY PHAM Procedure: US OB BPP w non-stress EXAMINATION: US OB BPP w non-stress HISTORY: Aortic stenosis of mother O99.419 COMPARISON: No relevant comparison available. TECHNIQUE: Ultrasound biophysical profile was performed in the radiology department. non-reactive stress testing was performed by nursing staff in the birthing center. FINDINGS: BREATHING MOVEMENTS: 2 GROSS BODY MOVEMENTS: 2 TONE: 2 QUALITATIVE AMNIOTIC FLUID VOLUME: 2 PRESENTATION: CEPHALIC HEART RATE: 137.06 bpm AMNIOTIC FLUID VOLUME: 18.7 cm GESTATIONAL AGE: 37 weeks 2 days US/US OB BPP w non-stress IMPRESSION: Total biophysical profile score: 8 Electronically authenticated by: EULOGIO BARCLAY Date: 02/18/2024 11:28
--- OUTSIDE RECORDS SUMMARY | 2024-02-18 06:05 | XMS_ITS | CCD ---
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 Farmer Name Role Phone Unavailable Unavailable Unavailable Herve Jimenez MD Primary Care Provider Chepe Peraza MD Unavailable Barbara DORADO, Herve Morejon Primary Care Unavail able Cristian DORADO, Jake Og Attending UnavailHerve Chiagn MD Primary Care Unavail swathi Foster MD, Jake Og Attending Unavailvero Foster MD, Jake Og Attending Unavailvero Jimenez MD, Herve Morejon Primary Care Unavail able Herve iJmenez MD Primary Care Provider Chepe Peraza MD Unavailable Herve Jimenez MD Primary Care Provider HERVE JIMENEZ Attending Unavailable Chepe Peraza MD Unavailable [phone] LATRICE HALL Attending Unavailable KRISTA JIMENEZGAIL Meli Primary Care Unavailable REGAN NEVES Referring Unavailable LAURAKER HERVE J Primary Care Unavailable SELF, SELF Referring Unavailable DAMON BELLE K Admitting Unavailable DAMON BELLE K Attending Unavailable SELF, SELF Referring Unavailable OZER, ENVER Attending Unavailable SHOEMAKER HERVE J Primary Care Unavailable REGAN NEVES Attending Unavailable REGAN NEVES Referring Unavailable SHOEMAKER HERVE J Primary Care Unavailable SHOLADANKER HERVE J Primary Care Unavailable REGAN NEVES Referring Unavailable OZER, ENVER Attending Unavailable OZER, ENVER Attending Unavailable SELF, SELF Referring Unavailable BARBARA HERVE J Primary Care Unavailable REGAN NEVES Referring Unavailable OZER, ENVER Attending Unavailable SHOEMAKER, HERVE J Primary Care Unavailable SHOEMAKER, HERVE J Attending Unavailable SHOEMAKER, HERVE J Referring Unavailable SHOEMAKER, HERVE J Primary Care Unavailable FRU, DARRYN Primary Care Unavailable DU PHILIP Referring Unavailable FRUTH, DARRYN Primary Care Unavailable MONICA SOFIA Attending Unavailable Unavailable Primary Care Provider Unavailfaith Jimenez MD, Herve Morejon Primary Care Provider DI PANCHAL Attending Unavailable STU, SAMMY Attending Unavailable DEBBIE, ELLA Attending Unavailable STU, SAMMY Attending Unavailable DEBBIE, ELLA Attending Unavailable DEBBIE, ELLA Attending Unavailable STU, SAMMY Attending Unavailable DEBBIE, ELLA Attending Unavailable STU, SAMMY Attending Unavailable PERAZA, CHEPE Attending Unavailable PERAZA, CHEPE Attending Unavailable STU, SAMMY R Referring Unavailable SHOEMAKER, HERVE KENYA Primary Care Unavailabl e DUARTE BERNARD Attending Unavailable THERESE GLEASON Referring Unavailable SHOEMAKER, HERVE KENYA Primary Care Unavailabl e CHEPE PERAZA Referring Unavailable SHOEMAKER, HERVE KENYA Primary Care Unavailabl e STU, SAMMY R Referring Unavailable SHOEMAKER, HERVE KENYA Primary Care Unavailabl e MOUSSA, SANTI NADIM Attending Unavailable MARÍA ELENA JOSEPH Referring Unavailabl e SHOEMAKER, HERVE KENYA Primary Care Unavailabl e PERAZACHEPE ARCE Referring Unavailable SHOEMAKER, HERVE KENYA Primary Care Unavailabl e STU, SAMMY R Referring Unavailable SHOEMAKER, HERVE KENYA Primary Care Unavailabl e DUARTE BERNARD Attending Unavailable STU, SAMMY R Referring Unavailable SHOEMAKER, HEREV KENYA Primary Care Unavailabl e SHOEMAKER, HERVE KENYA Referring Unavailabl e SHOEMAKER, HERVE KENYA Primary Care Unavailabl e DUARTE BERNARD Attending Unavailable STU, SAMMY R Referring Unavailable SHOEMAKER, HERVE KENYA Primary Care Unavailabl e PERAZACHEPE ARCE Referring Unavailable SHOEMAKER, HERVE KENYA Primary Care Unavailabl e SHOEMAKER, HERVE KENYA Referring Unavailabl e SHOEMAKER, HERVE KENYA Primary Care Unavailabl e SHOEMAKER, HERVE KENYA Referring Unavailabl e SHOEMAKER, HEREV KENYA Primary Care Unavailabl e LAFYATIS, KORTNEY Referring Unavailable HERVE JIMENEZ Primary Care Unavailabl e Allergies Allergy Classification Reported Allergen(s) Allergy Type Date of Onset Reaction(s) Facility (20 sources) Amoxicillin; Translations: [amoxicillin] Drug Allergy 04-14-19 13 Rash, Unknown [facility] Work Phone: (16 sources) Clarithromycin; Translations: [clarithromycin] Drug Allergy 10-07-19 16 Rash [facility] Work Phone: (20 sources) Clindamycin; Translations: [clindamycin] Drug Allergy 03-16-19 18 [facility] Work Phone: (20 sources) Doxycycline; Translations: [doxycycline] Drug Allergy 04-14-19 13 Unknown [facility] Work Phone: (13 sources) Clarithromycin Propensity to adverse reactions to drug 10-07-19 16 Rash, Unknown [facility] Work Phone: (13 sources) Erythromycin; Translations: [ERYTHROMYCIN] Drug Allergy 04-14-19 13 [facility] (9 sources) Spironolactone; Translations: [SPIRONOLACTONE] Drug Allergy 05-27-19 24 Dizziness [facility] (7 sources) Clindamycin/Lincom ycin Drug Intolerance 07-13-19 15 Unknown [facility] (3 sources) Spironolactone Drug Allergy 09-09-19 24 [facility] (1 source) Lincomycin; Translations: [LINCOMYCIN] Drug Allergy 07-13-19 15 [facility] Repository Medications Current Medications Medication Drug Class(es) [...] mouth daily. 90 tablet 3 11/20/2022 Active lidocaine viscous 80 mL, diphenhydrAMINE (BENADRYL) [...] 0 05/22/2021 Active lidocaine viscous-Alum & Mag Clyitaxlm-Dokujk-jllmxdgmgdZPCKG oral mouthwash (8 sources) Start: 05-22-2021 take 15 mL by mouth every six hours as needed lidocaine viscous-Alum & Mag Pzcgkvepz-Qzrfzr-jxxhgxpoagNQBVB oral mouthwash Swish and swallow 15mL by mouth every 6 hours as needed. 240 mL 05/22/2021 Active Start: 05-22-2021 take 15 mL by mouth every six hours as needed lidocaine viscous-Alum & Mag Sgdplqvdb-Orqjkv-usctzxjvqfGWTGH oral mouthwash Swish and swallow 15mL by mouth every 6 hours as needed. 240 mL 0 05/22/2021 Active nystatin 327600 unt/ml oral suspension (8 sources) Polyene Antifungal Start: 05-16-2021 take 10 mL by mouth four times daily nystatin 506365 UNIT/ML oral suspension Swish and swallow 10 mL 4 times daily. 280 mL 05/16/2021 Active Metz-3 Fatty Acids (OMEGA 3 PO) (7 sources) Metz-3 Fatty Ac ids (OMEGA 3 PO) Take [...] 05/22/2021 Active no115/iron/folic acid ( 19 ORAL) (4 sources) no115/iron/folic acid ( 19 ORAL) Take [...] Chronic Aortic; peripheral; and visceral artery aneurysms (20 sources) Ascending aorta dilatation; Translations: [Thoracic aortic [...] Onset: 11-20-2022 11-20-2022 Episodic Headache; including migraine (4 sources) Ophthalmic migraine; Translations: [Migraine with aura, [...] second trimester] 12-30-2023 Episodic Other complications of (17 sources) Disorder of cardiovascular system; Translations: [Diseases of the circulatory system complicating , second trimester] Onset: 01-26-2024 01-13-2024 Episodic Other complications of (1 source) Diseases of the circulatory system complicating , third trimester; Translations: [Diseases of the circulatory system complicating , third trimester] Onset: 02-13-2024 Episodic Other complications of (1 source) Endocrine, nutritional and metabolic diseases complicating , unspecified trimester; Translations: [Endocrine, nutritional and metabolic diseases complicating , unspecified trimester] Onset: 01-26-2024 Episodic Other and delivery including normal (9 [...] Onset: 11-20-2022 11-20-2022 Chronic Unclassified (1 source) High Risk Gestation Onset: 02-13-2024 Unclassified (1 source) Routine Visit Onset: 01-27-2024 [...] cholecystitis] Onset: 04-05-2019 04-06-2019 Episodic Cardiac dysrhythmias (8 sources) Palpitations; Translations: [Palpitations] Onset: 07-15-2017 07-15-2017 Episodic Conditions associated with dizziness or vertigo (4 sources) Dizziness; Translations: [Dizziness and giddiness] Onset: 06-29-2020 06-29-2020 Episodic Lymphadenitis (6 sources) Generalized enlarged lymph nodes; Translations: [Lymphadenopathy] Onset: 01-09-2023 12-24-2022 Episodic Mood disorders (5 sources) Mood disorders Onset: 12-24-2022 12-24-2022 Other complications of (6 sources) Hypothyroidism in ; Translations: [Endocrine, nutritional and metabolic diseases complicating , unspecified trimester] Onset: 01-26-2024 Resolved: 01-26-2024 12-30-2023 Episodic Other complications of (1 source) Diseases [...] weeks gestation of ] Onset: 11-18-2023 Episodic NEGATED: Highlighted row has been ruled out!Unclassified (7 sources) No known active problems 05-27-2023 Results Test Name Value Interpretation Reference Range Facility 36on 02-14-2024 36 Sent via [employer] fax Normal [facility] 36 I called her yesterday morning and discussed this with her already so this must be an older message. Normal [facility] Documentationon 02-14-2024 Documentation [id number] Adry Cardenas 1995 F Date Provider Department Center 02/14/2024 CHEPE GOODSON No family history on file Normal [facility] 36on 02-13-2024 36 Patient stated that she completed an ECHO recently and is now 36 wks . Her MASCARA MOLDER wants a note on the results and how to proceed with delivery. MASCARA MOLDER: [facility] [address] [place] [address] PH: [phone] F: [phone] Normal [facility] STREP B SCREEN CULTUREon S. agalactiae Org specific cx Ql (Vag+Rectum) SPECIMEN NOTES ALLERGY TO PENICILLIN CULTURE RESULTS NEGATIVE FOR GROUP B STREPTOCOCCUS BY NUCLEIC ACID AMPLIFICATION Normal [facility] Comment on above: Performed By: #### 7 2607-5 #### [facility] ([id number]) [address], [address] [place] [address] 37on 01-13-2024 37 Echo results: Bicuspid aortic [...] not dizzy. ECHO at 36 weeks Normal [facility] Office Visiton 01-13-2024 Follow-up visit [id number] Adry Cardenas 1995 F Date Provider Department Center 01/13/2024 CHEPE GOODSON No family history on file Level of Service:84369 UT OFFICE/OUTPATIENT ESTABLISHED MOD MDM 30 MIN Reason for Visit and Comments: Aortic Dilatation [Other] - 32 wks Normal [facility] Orders Onlyon 01-13-2024 Orders Only [id number] Adry Cardenas 1995 F Date Provider Department Center 01/13/2024 [id number], CRYSTAL RPW PED [employer] No family history on file Normal [facility] Urinalysis macro (dipstick) panel (U)on 12-30-2023 Bilirubin, UA Negative Negative - 4(70) +++ mg/dL [facility] Blood, UA Negative Negative - 50 Sina/mcL [facility] Clarity, UA Clear [facility] Color, UA Yellow [facility] Glucose, UA Negative Negative - 1999(110) ++++ mg/dL [facility] Interpretation and review of laboratory results Normal [facility] Ketones, UA Negative Negative - 160(16) ++++ mg/dL [facility] Leukocytes, UA Negative Negative - 500+++ Amos/mcL [facility] Nitrite, UA Negative Negative - Positive [facility] pH, UA 6.5 5 - 9 [facility] Protein, UA Negative Negative - 1999(20) ++++ mg/dL [facility] Spec Grav, UA 1.015 1 - 1.03 [facility] Urobilinogen, UA 0.2 0.2 - 12 mg/dL [facility] TBH UA (CLEAN/CATCH) PIANO REGULATOR/GIUSEPPE RO IF IND.on 12-27-2023 BILIRUBIN URINE Negative NEGATIVE [facility] BLOOD URINE Negative NEGATIVE [facility] Clarity (U) CLEAR CLEAR [facility] Color (U) LT. YELLOW YELLOW [facility] GLUCOSE URINE UA Negative NEGATIVE mg/dL [facility] Interpretation and review of laboratory results Abnormal [facility] Ketones Ql (U) TRACE Abnormal NEGATIVE mg/dL [facility] Leukocyte esterase Test strip Ql (U) Negative NEGATIVE [facility] NITRITE URINE Negative NEGATIVE [facility] care pH (U) 7.0 [pH] 5.0 - 9.0 [facility] PROTEIN URINE Negative NEG/TRACE mg/dL [facility] SPECIFIC GRAVITY URINE <=1.005 Abnormal 1.005 - 1.025 [facility] URINE MICROSCOPIC INDICATED NO [facility] UROBILINOGEN URINE 0.2 EU/dL 0.2 - 1.0 EU/dL [facility] Urinalysis macro (dipstick) panel (U)on 12-17-2023 Bilirubin, UA Negative Negative - 4(70) +++ mg/dL [facility] Blood, UA Negative Negative - 50 Sina/mcL [facility] Clarity, UA Clear [facility] re Color, UA Yellow [facility] Glucose, UA Negative Negative - 1999(110) ++++ mg/dL [facility] Interpretation and review of laboratory results Abnormal [facility] Ketones, UA Negative Negative - 160(16) ++++ mg/dL [facility] Leukocytes, UA Trace Negative - 500+++ Amos/mcL [facility] Nitrite, UA Negative Negative - Positive [facility] pH, UA 7.5 5 - 9 [facility] e Protein, UA Negative Negative - 1999(20) ++++ mg/dL [facility] Spec Grav, UA 1.020 1 - 1.03 [facility] Urobilinogen, UA 0.2 0.2 - 12 mg/dL [facility] CBC with Diffon 12-09-2023 Abs. Basophil 0.09 k/uL Normal 0.00-0.20 [facility] Comment on above: Performed By: #### C P, CDP #### [facility] [address] [place] [address] [place] [address] Pre Certification Specialist: Clark Mata MD Abs.Imm.Granulocyte 0.17 k/uL Normal 0.00-0.30 [facility] Comment on above: Performed By: #### C P, CDP #### [facility] [address] [place] [address] Pre Certification Specialist: Clark Mata MD Abs.Neutrophil (Seg) 5.63 k/uL Normal 1.50-8.10 [facility] Comment on above: Performed By: #### C P, CDP #### [facility] [address] [place] [address] Pre Certification Specialist: Clark Mata MD Basophils/100 WBC (Bld) 1 % Normal 0-2 [facility] Comment on above: Performed By: #### C P, CDP #### [address] [place], [place] [id number] Pre Certification Specialist: Clark Mata MD Eosinophils (Bld) [#/Vol] 0.13 10*3/uL Normal 0.00-0.44 [facility] Comment on above: Performed By: #### C P, CDP #### [address] [place], [place] [id number] Pre Certification Specialist: Clark Mata MD Eosinophils/100 WBC (Bld) 2 % Normal 1-4 [facility] Comment on above: Performed By: #### C P, CDP #### [address] [place], [facility]83 Pre Certification Specialist: Clark Mata MD Erythrocyte distribution width (RBC) [Ratio] 12.7 % Normal 11.8-14.4 [facility] Comment on above: Performed By: #### C P, CDP #### [address] [place], [place] [address]83 Pre Certification Specialist: Clark Mata MD Hematocrit (Bld) [Volume fraction] 36.4 % Normal 36.3-47.1 [facility] Comment on above: Performed By: #### C P, CDP #### [address] [place], [facility]83 Pre Certification Specialist: Clark Mata MD Hemoglobin (Bld) [Mass/Vol] 12.6 g/dL Normal 11.9-15.1 [facility] Comment on above: Performed By: #### C P, CDP #### [address] [place] [address] Pre Certification Specialist: Clark Mata MD Immature granulocytes/100 WBC (Bld) 2 % High 0 [facility] Comment on above: Performed By: #### C P, CDP #### [address] [place] [address] Pre Certification Specialist: Clark Mata MD Lymphocytes (Bld) [#/Vol] 1.80 10*3/uL Normal 1.10-3.70 [facility] Comment on above: Performed By: #### C P, CDP #### [address] [place] [address] Pre Certification Specialist: Clark Mata MD Lymphocytes/100 WBC (Bld) 21 % Low 24-43 [facility] Comment on above: Performed By: #### C P, CDP #### [address] [place], [facility]83 Pre Certification Specialist: Clark Mata MD MCH (RBC) [Entitic mass] 30.4 pg Normal 25.2-33.5 [facility] Comment on above: Performed By: #### C P, CDP #### [address] [place], [facility]83 Pre Certification Specialist: Clark Mata MD MCHC (RBC) [Mass/Vol] 34.6 g/dL Normal 28.4-34.8 [facility] Comment on above: Performed By: #### C P, CDP #### [address] [place], [place] [address] Pre Certification Specialist: Clark Mata MD MCV (RBC) [Entitic vol] 87.9 fL Normal 82.6-102.9 [facility] Comment on above: Performed By: #### C P, CDP #### [address] [place] [address] Pre Certification Specialist: Clark Mata MD Monocytes (Bld) [#/Vol] 0.61 10*3/uL Normal 0.10-1.20 [facility] Comment on above: Performed By: #### C P, CDP #### [facility] [address] [place], [place] [id number] Pre Certification Specialist: Clark Mata MD Monocytes/100 WBC (Bld) 7 % Normal 3-12 [facility] Comment on above: Performed By: #### C P, CDP #### [facility] [address] [place], [place] 0446183 Pre Certification Specialist: Clark Mata MD Neutrophil (Seg) 67 % High 36-65 [facility] Comment on above: Performed By: #### C P, CDP #### [facility] [address] [place], [place] 1090583 Pre Certification Specialist: Clark Mata MD NRBC Automated 0.0 per 100 WBC Normal 0.0 [facility] Comment on above: Performed By: #### C P, CDP #### [address] [place], [place] [id number] Pre Certification Specialist: Clark Mata MD Platelet mean volume (Bld) [Entitic vol] 10.7 fL Normal 8.1-13.5 [facility] Comment on above: Performed By: #### C P, CDP #### [address] [place], [place] [id number] Pre Certification Specialist: Clark Mata MD Platelets (Bld) [#/Vol] 162 10*3/uL Normal 138-453 [facility] Comment on above: Performed By: #### C P, CDP #### [facility] [address] [place] [address] [place], [place] 1526083 Pre Certification Specialist: Clark Mata MD RBC (Bld) [#/Vol] 4.14 10*6/uL Normal 3.95-5.11 [facility] Comment on above: Performed By: #### C P, CDP #### [address] [place] [address] Pre Certification Specialist: Clark Mata MD WBC (Bld) [#/Vol] 8.4 10*3/uL Normal 3.5-11.3 [facility] Comment on above: Performed By: #### C P, CDP #### [facility] [address] [place], [place] [id number] Pre Certification Specialist: Clark Mata MD Comp Metabolic Profon 2023 Albumin [Mass/Vol] 3.7 g/dL Normal 3.5-5.2 [facility] Comment on above: Performed By: #### C P, CDP #### [facility] [address] [place], [place] 6783783 Pre Certification Specialist: Clark Mata MD Albumin/Glob Ratio 1.4 Normal 1.0-2.5 [facility] Comment on above: Performed By: #### C P, CDP #### [facility] [address] [place] [address] [place], [place] [phone] Pre Certification Specialist: Clark Mata MD Alkaline Phos 47 U/L Normal 35-104 [facility] Comment on above: Performed By: #### C P, CDP #### [facility] [address] [place], [place] 0592683 Pre Certification Specialist: Clark Mata MD ALT [Catalytic activity/Vol] 13 U/L Normal 10-35 [facility] Comment on above: Performed By: #### C P, CDP #### [facility] [address] [place], [place] 6279983 Pre Certification Specialist: Clark Mata MD Anion gap [Moles/Vol] 9 mmol/L Normal 9-16 [facility] Comment on above: Performed By: #### C P, CDP #### [address] [place], [place] 1980683 Pre Certification Specialist: Clark Mata MD AST [Catalytic activity/Vol] 16 U/L Normal 10-35 [facility] Comment on above: Performed By: #### C P, CDP #### [facility] [address] [place], [place] [phone] Pre Certification Specialist: Clark Mata MD Bilirubin [Mass/Vol] 0.3 mg/dL Normal 0.00-1.20 [facility] Comment on above: Performed By: #### C P, CDP #### [facility] [address] [place], [place] [address]83 Pre Certification Specialist: Clark Mata MD BUN/CRE Ratio 17 Normal 9-20 [facility] Comment on above: Performed By: #### C P, CDP #### [facility] [address] [place], [place] 0702383 Pre Certification Specialist: Clark Mata MD Calcium [Mass/Vol] 8.7 mg/dL Normal 8.6-10.4 [facility] Comment on above: Performed By: #### C P, CDP #### [facility] [address] [place], [place] [id number] Pre Certification Specialist: Clark Mata MD Chloride [Moles/Vol] 104 mmol/L Normal 98-107 [facility] Comment on above: Performed By: #### C P, CDP #### [address] [place], [place] 1016783 Pre Certification Specialist: Clark Mata MD CO2 [Moles/Vol] 21 mmol/L Normal 20-31 [facility] Comment on above: Performed By: #### C P, CDP #### [facility] [address] [place], [place] 6665683 Pre Certification Specialist: Clark Mata MD Creatinine [Mass/Vol] 0.6 mg/dL Normal 0.50-0.90 [facility] Comment on above: Performed By: #### C P, CDP #### [facility] [address] [place], [place] [phone] Pre Certification Specialist: Clark Mata MD GFR/1.73 sq M.predicted among non-blacks MDRD (S/P/Bld) [Vol rate/Area] mL/min/{1.73_m2} Normal >60 [facility] Comment on above: Result Comment: These [...] Performed By: #### C P, CDP #### [facility] [address] [place] [address] [place] [address] Pre Certification Specialist: Clark Mata MD Glucose [Mass/Vol] 75 mg/dL Normal 74-99 [facility] Comment on above: Performed By: #### C P, CDP #### [facility] [address] [place] [address] [place], [place] 6884883 Pre Certification Specialist: Clark Mata MD Potassium [Moles/Vol] 4.0 mmol/L Normal 3.7-5.3 [facility] Comment on above: Performed By: #### C P, CDP #### [address] [place], [place] 4458083 Pre Certification Specialist: Clark Mata MD Protein [Mass/Vol] 6.2 g/dL Low 6.6-8.7 [facility] Comment on above: Performed By: #### C P, CDP #### [facility] [address] [place] [address] [place], [place] [phone] Pre Certification Specialist: Clark Mata MD Sodium [Moles/Vol] 134 mmol/L Low 136-145 [facility] Comment on above: Performed By: #### C P, CDP #### [facility] [address] [place] [address] [place], [place] [phone] Pre Certification Specialist: Clark Mata MD Urea nitrogen [Mass/Vol] 10 mg/dL Normal 6-20 [facility] Comment on above: Performed By: #### C P, CDP #### [facility] [address] [place], [place] [phone] Pre Certification Specialist: Clark Mata MD Lipaseon 6 Lipase [Catalytic activity/Vol] 41 U/L Normal 13-60 [facility] Comment on above: Performed By: #### L IP #### [facility] [address] [place] [address] Pre Certification Specialist: Clark Mata MD UA w/Reflex Cultureon 2023 Bilirubin, SemiQt,Ur Negative Normal NEG [facility] Comment on above: Performed By: #### U AX, UMICAO #### [facility] [address] [place], [place] 2869283 Pre Certification Specialist: Clark Mata MD Blood, Urine Negative Normal NEG [facility] Comment on above: Performed By: #### U AX, UMICAO #### [facility] [address] [place], [place] 1227483 Pre Certification Specialist: Clark Mata MD Clarity (U) Clear Normal CLEAR [facility] Comment on above: Performed By: #### U AX, UMICAO #### [facility] [address] [place], [place] 8649683 Pre Certification Specialist: Clark Mata MD Color (U) Yellow Normal YEL [facility] Comment on above: Performed By: #### U AX, UMICAO #### [facility] [address] [place], [place] 1661283 Pre Certification Specialist: Clark Mata MD Glucose Ql (U) Negative Normal NEG [facility] Comment on above: Performed By: #### U AX, UMICAO #### [facility] [address] [place], [place] 6178383 Pre Certification Specialist: Clark Mata MD Ketones Ql (U) Negative Normal NEG [facility] Comment on above: Performed By: #### U AX, UMICAO #### [facility] [address] [place], [place] [phone] Pre Certification Specialist: Clark Mata MD Leukocyte esterase Test strip Ql (U) Negative Normal NEG [facility] Comment on above: Performed By: #### U AX, UMICAO #### [facility] [address] [place] [address] Pre Certification Specialist: Clark Mata MD Nitrite,Ur Negative Normal NEG [facility] Comment on above: Performed By: #### U AX, UMICAO #### [facility] [address] [place] [address] [place] [address] Pre Certification Specialist: Clark Mata MD PH,Ur 7.0 Normal 5.0-9.0 [facility] Comment on above: Performed By: #### U AX, UMICAO #### [facility] [address] [place] [address] [place] [address] Pre Certification Specialist: Clark Mata MD Protein Ql (U) Negative Normal NEG [facility] in Hospital Comment on above: Performed By: #### U AX, UMICAO #### [facility] [address] [place] [address] [place] [address] Pre Certification Specialist: Clark Mata MD Spec. Orchard,Ur 1.015 Normal 1.010-1.[address] [facility] Comment on above: Performed By: #### U AX, UMICAO #### [facility] [address] [place] [address] Pre Certification Specialist: Clark Mata MD Urobilinogen,Ur Normal Normal 0.0-1.0 [facility] Comment on above: Performed By: #### U AX, UMICAO #### [facility] [address] [place] [address] [place], [place] [address] Pre Certification Specialist: Clark Mata MD US GALLBLADDER RUQon 024 [...] Sabi Leung MD 12/09/23 Final result Normal [facility] Urinalysis,Microon 4 Epithelial cells LM Ql (Urine sed) 0 TO 2 Normal 0-25 [facility] Comment on above: Performed By: #### ARNOLD MARTINO #### [facility] [address] [place] [address] Pre Certification Specialist: Clark Mata MD Urine RBC's None Normal 0-2 [facility] Comment on above: Performed By: #### ARNOLD MARTINO #### [facility] [address] [place] [address] Pre Certification Specialist: Clark Mata MD Urine WBC's 0 TO 2 Normal 0-5 [facility] Comment on above: Performed By: #### ARNOLD MARTINO #### [facility] [address] [place] [address] Pre Certification Specialist: Clark Mata MD 12-03-2023 36 Echo order faxed over Normal [facility] 12-02-2023 36 Called and left detailed message for patient [facility] 36 This will be fine [facility] 11-24-2023 36 Patient called stating that they [place] does not have any appointment for an echo until 32 week. She wants to know if it is okay for her to get it at 32 weeks or what else do you suggest. Please advise [facility] 36on 11-23-2023 36 I called the [facility] and I left a message on her voicemail that I would put an order in but she needs to call the [facility] scheduling line and get it scheduled in our office will fax the order to them. I asked her to schedule it for 30 weeks gestation. Please make sure that the order is faxed to [facility] scheduling. [facility] Orders Onlyon 11-23-2023 Orders Only [id number] Adry Cardenas 1995 Provider Department [facility] 11/23/2023 CHEPE GOODSON No family history on file [facility] 36on 11-21-2023 36 Pt called in [...] next apt with Dr. Peraza on 01/12. [facility] Telephoneon 11-21-2023 Telephone [id number] Adry Cardenas 1995 Date Provider Department Center 11/21/2023 CHEPE GOODSON No family history on file Reason for Visit and Comments: ECHO [Other] [facility] Office Visiton 10-07-2023 Follow-up visit [id number] Adry Cardenas 1995 F Date Provider Department Center 10/07/2023 CHEPE GOODSON No family history on file Level of Service:53179 UT OFFICE/OUTPATIENT ESTABLISHED MOD MDM 30 MIN Reason for Visit and Comments: Heart Problem [54] - Transfer from [facility] - 18 wks [facility] CHG US SOFT TISSUE HEAD & NE CK REAL TIME IMGE [facility] 09-23-2023 Radiology Study observation (narrative) [facility] CHG US SOFT TISSUE HEAD & NE CK REAL TIME IMGE [facility] 09-22-2023 Andres Torres MD 09/23/2023 6:28 PM Ms. Cardenas was seen and examined with Dr. Hall, I independently verified the findings on US and agree with the documented report - thyroid ultrasound report appears in the notes tab. [facility] US Unspecified body regionOr dered By: Unassigned Pacs on 09-22-2023 [facility] Work Phone: US Unspecified body regionon 09-22-2023 Radiology Study observation (narrative) [facility] 36on 07-04-2023 36 Created in error [facility] 36 Scheduled an appointment October 06 at 8:30am. [facility] 36 If this patient schedules a [...] her and left her message as well. [facility] 36on 07-03-2023 36 Patient is newly (4wks) and is currently scheduled in August for her yearly visit.. She is asking if she needs to reschedule to do the 20-24 wk gestational testing. PH: [phone] [facility] Telephoneon 07-03-2023 Telephone [phone] Jorge Peñana 1995 F Date Provider Department Center 07/03/2023 [id number]-HOLKO, RAMIRO RPW PED [employer] No family history on file [facility] VZ Immunityon 06-23-2023 VZ Immunity 3.84 Normal >1.09 [facility] Comment on above: Result Comment: Interpretation: IMMUNE Reference Range: <0.91 Not Immune 0.91-1.09 Equivocal >1.09 Immune Performed By: #### V ZI #### [facility] [address] [place] [address] Pre Certification Specialist: Bear Mejias MD US THYROIDon 06-03-2023 US [...] Echogenicity: Hyperechoic or isoechoic (1 point) Shape: Nxoxa-wkrq-eqev (0 points) Margin: Smooth (0 points) Echogenic [...] T4 [Mass/Vol] 1.0 ng/dL Normal 0.9-1.8 [facility] Comment on above: Order Comment: Locat ion: Performed By: #### L [id number], [id number] #### ANIL PRESSLEY ([id number]) [facility] ([facility]) [address], [address] [place] [address] TSHon 05-23-2023 TSH 2.599 MIU/mL Normal 0.550-4.780 [facility] Comment on above: Order Comment: Locat ion: Performed By: #### L [id number], [id number] #### ANIL PRESSLEY ([id number]) [facility] ([facility]) [address], [address] [place] [address] RF videography Hypopharynx a nd Esophagus Views [...] report for further details and dietary recommendations. [facility] Radiology Study observation (narrative) [facility] videography Hypopharynx a nd Esophagus Views W liquid and paste contrast PO during swallowingOrdered By: Gisele Hardy on 01-09-2023 [facility] Work Phone: XR FLUORO MODIFIED BARIUM [...] error, please notify the sender immediately at [phone] and permanently delete the original report and destroy any copies or printouts. Normal [facility] [employer] Techn[employer] Cytology Reporton 2022 [employer] Technician Cytology Report Clinical Information Specimen Collection [...] smears in the future. 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 Patient reports some pain [...] and the last time she saw her [employer] worker thought there might have been some [...] will send patient for preconceptual counseling with [facility] because of her cardiac abnormality Follow-up [...] w/o (more content not included)... Normal [facility] Culture, Urineon 08-04-2020 RPT Microbiology results Abnormal [facility] Comment on above: Order Comment: Items in this order include: Culture, Urine Testing Performed By: [facility] [address] [place] [address] [place] [address] Dr. Anil Pressley, Pre Certification Specialist Result Comment: [place] Count: 10,000-25,000 CFU/ML Final Result: Escherichia [...] Trimethoprim/Sulfamethoxaz >=320 R Performed By: #### C 444 #### [facility] [address] [place] [address] Culture, Urineon 03-14-2020 RPT Microbiology results Abnormal [facility] Comment on above: Order Comment: Items in this order include: Culture, Urine Testing Performed By: [facility] [address] [place] [place] [address] Dr. Shaunna Cummins, Pre Certification Specialist Result Comment: [place] Count: >100,000 CFU/ML Final Result: Escherichia [...] Trimethoprim/Sulfamethoxaz >=320 R Performed By: #### C 494 #### [facility], [facility] [address] [place] [address] Culture, Urineon 12-14-2019 RPT Microbiology results Abnormal [facility] Comment on above: Order Comment: Items in this order include: Culture, Urine Testing Performed By: [facility] [address] [place] [place] [address] Dr. Shaunna Cummins, Pre Certification Specialist Result Comment: [place] Count: 50,000-75,000 CFU/ML Final Result: Escherichia [...] R Performed By: #### C 734 #### [facility] [address] [place] [address] Vital Signs Date Time Vital Sign Value Performing Clinician Facility 02-13-2024 10:32-0500 Body mass index (BMI) [Ratio] 29.3 kg/m2 [facility] 02-13-2024 10:32-0500 Body weight 77.43 kg [facility] 02-13-2024 10:32-0500 Diastolic blood pressure 82 mm[Hg] [facility] 02-13-2024 10:32-0500 Systolic blood pressure 124 mm[Hg] [facility] 01-27-2024 10:23-0500 Body mass index (BMI) [Ratio] 28.58 kg/m2 [facility] Initial [facility] 01-27-2024 10:23-0500 Body weight 75.52 kg [facility] Initial [facility] 01-27-2024 10:23-0500 Diastolic blood pressure 74 mm[Hg] [facility] Initial [facility] 01-27-2024 10:23-0500 Systolic blood pressure 110 mm[Hg] [facility] 01-13-2024 13:51-0500 Body height 162.6 [...] 28.12 kg/m2 Sammy Stu DO Work Phone: [facility] 12-30-2023 10:58-0400 Body weight 74.3 kg Sammy Stu DO Work Phone: [facility] 12-30-2023 10:58-0400 Diastolic blood pressure 64 mm[Hg] Sammy Stu DO Work Phone: [facility] 12-30-2023 10:58-0400 Systolic blood pressure 100 mm[Hg] Sammy Stu DO Work Phone: [facility] 12-17-2023 10:27-0400 Body mass index (BMI) [Ratio] 27.6 kg/m2 Ella Wilkinsey PA Work Phone: [facility] 12-17-2023 10:27-0400 Body weight 72.94 kg Ella Nicole PA Work Phone: [facility] 12-17-2023 10:27-0400 Diastolic blood pressure 64 mm[Hg] Ella Wilkinsey PA Work Phone: [facility] 12-17-2023 10:27-0400 Systolic blood pressure 100 mm[Hg] Ella Nicole PA Work Phone: [facility] 09-22-2023 13:37-0400 Body height 162.6 cm Latrice Hall MD Work Phone: [facility] 09-22-2023 13:37-0400 Body mass index (BMI) [Ratio] 25.4 kg/m2 Latrice Hall MD Work Phone: [facility] 09-22-2023 13:37-0400 Body temperature 97.3 [degF] Latrice Hall MD Work Phone: [facility] 09-22-2023 13:37-0400 Body weight 67.13 kg Latrice Hall MD Work Phone: [facility] 09-22-2023 13:37-0400 Diastolic blood pressure 62 mm[Hg] Latrice Hall MD Work Phone: [facility] 09-22-2023 13:37-0400 Systolic blood pressure 114 mm[Hg] Latrice Hall MD Work Phone: [facility] 12-24-2022 16:30-0400 Body height 162.6 cm Regan Neves APRN-BOARD FILLER Work Phone: [facility] 12-24-2022 16:30-0400 Body mass index (BMI) [Ratio] 23.17 kg/m2 Regan Neves APRN-BOARD FILLER Work Phone: [facility] 12-24-2022 16:30-0400 Body weight 61.24 kg Regan Neves [employer] Work Phone: [facility] 12-24-2022 16:30-0400 Diastolic blood pressure 68 mm[Hg] Regan Neves [employer] Work Phone: [facility] 12-24-2022 16:30-0400 Heart rate 71 /min Regan Neves [employer] Work Phone: [facility] 12-24-2022 16:30-0400 Systolic blood pressure 108 mm[Hg] Regan Neves [employer] Work Phone: [phone] [place] [address] 12-24-2022 11:37-0400 Body mass index (BMI) [Ratio] 23.22 kg/m2 Emile Armas MD Work Phone: [phone] [place] [address] 12-24-2022 11:37-0400 Body temperature 98.2 [degF] Emile Armas MD Work Phone: 4([phone] [place] [address] 12-24-2022 11:37-0400 Body weight 61.37 kg Emile Armas MD Work Phone: 1(906)[phone] [place] [address] 12-24-2022 11:37-0400 Diastolic blood pressure 78 mm[Hg] Emile Armas MD Work Phone: [facility] 12-24-2022 11:37-0400 Heart rate 73 /min Emile Armas MD Work Phone: [phone] [place] [address] 12-24-2022 11:37-0400 Respiratory rate 16 /min Emile Armas MD Work Phone: [phone])[phone] [place] [address] 12-24-2022 11:37-0400 SaO2% (BldA) [Mass fraction] 99 % Emile Armas MD Work Phone: [facility] 12-24-2022 11:37-0400 Systolic blood pressure 123 mm[Hg] Emile Armas MD Work Phone: [facility] Encounters Encounter Date Encounter Type Care Provider Facility Start: 02-13-2024 End: 02-13-2024 ambulatory [facility] Start: 02-13-2024 End: 02-13-2024 Patient encounter procedure [facility] High Risk [facility] Comment on above: GA: 36w4d Start: 02-13-2024 End: 02-13-2024 ambulatory [facility] Start: 02-12-2024 End: 02-12-2024 ambulatory CHEPE Pham [facility] Start: 02-11-2024 End: 02-11-2024 Office outpatient visit 15 minutes Duarte Bernard MD Work Phone: [facility]aternal- Medicine at [facility] Comment on above: Maternal cardiovascu lar disease affecting in third trimester (Primary Dx) Start: 02-11-2024 End: 02-11-2024 ambulatory [facility] Start: 01-27-2024 End: 01-27-2024 Initial care visit [facility] High Risk Initial [facility] Comment on above: GA: 34w1d Start: 01-27-2024 End: 01-27-2024 ambulatory [facility] Start: 01-26-2024 End: 01-26-2024 ambulatory SAMMY PERAZA Not Available Start: 01-14-2024 End: 01-14-2024 ambulatory ELLA NICOLE Not Available Start: 01-13-2024 End: 01-13-2024 Office outpatient visit 15 minutes Duarte Bernard MD Work Phone: [facility]- [facility] Comment on above: Ascending aorta dila tion (CMS-HCC) (Primary Dx); 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 Start: 01-13-2024 End: 01-13-2024 ambulatory SAMMY PERAZA [facility] Start: 01-13-2024 End: 01-13-2024 ambulatory CHEPE [facility] Start: 12-30-2023 End: 12-30-2023 Bamboo flowsheet Sammy Delucazio DO Work Phone: [facility] Start: 12-30-2023 End: 12-30-2023 Bamboo flowsheet Sammy Stu DO Work Phone: [facility] Start: 12-30-2023 End: 12-30-2023 ambulatory SAMMY PERAZA Not Available Start: 12-30-2023 End: 12-30-2023 flow sheet Sammyjakob Abrahamo DO Work Phone: [facility] Comment on above: 30 weeks gestation o f ; Third trimester ; Aortic stenosis of mother during ; Hypothyroid in , antepartum (CMS/HCC); Vaginal discharge during in second trimester; Encounter for screening for cervical length Start: 12-29-2023 End: 12-29-2023 ambulatory CHEPE Pham [facility] Start: 12-27-2023 End: 12-27-2023 Clinisync Result [...] 12-09-2023 End: 12-09-2023 Emergency department patient visit [facility] Start: 11-26-2023 End: 11-26-2023 ambulatory ELLA NICOLE Not Available Start: 11-18-2023 End: 11-18-2023 ambulatory [facility] Start: 10-31-2023 End: 10-31-2023 ambulatory [facility] Start: 10-30-2023 End: 10-30-2023 ambulatory SAMMY STU Not Available Start: 10-20-2023 End: 10-20-2023 ambulatory [facility] Start: 10-07-2023 End: 10-07-2023 ambulatory [facility] Start: 09-30-2023 End: 09-30-2023 ambulatory ELLA NICOLE Not Available Start: 09-22-2023 End: 09-22-2023 Office outpatient new 45 minutes Latrice Hall MD Work Phone: [facility] Comment on above: Thyroid nodule (Prim subhash Dx) Start: 09-22-2023 ambulatory LATRICE HALL Facilit y:[facility] Start: 09-01-2023 End: 09-01-2023 ambulatory SAMMY STU Not Available Start: 07-31-2023 End: 07-31-2023 ambulatory DI PANCHAL Not Available Start: 06-20-2023 End: 06-20-2023 ambulatory [facility] Start: 06-02-2023 ambulatory HERVE JIMENEZ Fac ility:[facility] Start: 06-02-2023 End: 06-02-2023 Subsequent hospital visit by physician Herve Jimenez MD Work Phone: Department of Radiology Comment on above: Arrived Start: 05-27-2023 End: 05-27-2023 ambulatory DI PANCHAL Not Available Start: 05-23-2023 End: 05-23-2023 ambulatory HERVE JIMENEZ [facility] Start: 01-09-2023 End: 01-09-2023 Subsequent hospital visit by physician Emile Armas MD Work Phone: Department of Radiology Comment on above: Arrived Start: 01-09-2023 ambulatory HERVE Benavides ility:[facility] Start: 12-24-2022 End: 12-24-2022 Subsequent hospital visit by physician Regan Neves [employer] Work Phone: [facility] [place] Comment on above: Arrived Start: 12-24-2022 ambulatory REGAN NEVES Facilit y:[facility] Start: 12-24-2022 End: 12-24-2022 Office outpatient new 45 minutes Emile Armas MD Work Phone: Department of Otolaryngology Comment on above: Lymphadenopathy (Alicia ramin Dx) Start: 12-24-2022 ambulatory SELF SELF Facility:[facility] Start: 11-20-2022 End: 11-20-2022 Office consultation new/estab patient 60 min Belle Jose DO Work Phone: [facility] [place] Comment on above: Encounter for precon ception consultation (Primary Dx); Bicuspid aortic valve Start: 11-20-2022 ambulatory HERVE Benavides ility:[facility] Start: 08-15-2022 End: 08-15-2022 Subsequent hospital visit by physician Chepe Peraza MD Work Phone: Cardiovascular Imaging Lab [facility] Comment on above: Canceled (Cancel Walton son Not Listed - Please provide detailed information) Start: 05-21-2022 End: 05-22-2022 ambulatory Jake Foster MD Facility:[facility] Start: 06-05-2021 End: 06-05-2021 Postop follow up visit related to original px Chralotte Cárdenas MD Work Phone: [facility] [place] Comment on above: Postop check (Primar y Dx) Start: 03-18-2018 End: 03-18-2018 Patient encounter procedure Darryn Kennedy Work Phone: [facility] Comment on above: Other fatigue; Lymph adenopathy of head and neck Procedures Date Procedure Procedure Detail Performing Clinician Start: 12-30-2023 Urnls dip stick/tabl et rgnt non-auto w/o micrscp Sammy Abrahamo DO Work Phone: Start: 12-27-2023 [facility] UA (CLEAN/CATCH) PIANO REGULATOR/MICRO IF IND. Sammy Abrahamo DO Work Phone: Start: 12-17-2023 Urnls dip [...] esop hagus single contrast study Regan Neves [employer] Work Phone: Plan of Treatment Date Care Activity Detail Author Start: 01-07-2034 DTaP,Tdap and Td Vaccines (6 - Td or Tdap) DTaP,Tdap and Td Vaccines (6 - Td or Tdap) [facility] Start: 09-29-2026 Screening for malign ant neoplasm of cervix Pap Smear [facility] Start: 02-11-2025 Adult BMI Screening Adult BMI Screen ing [facility] Start: 01-26-2025 Adult BMI Screening Adult BMI Screen ing [facility] Start: 01-12-2025 Adult BMI Screening Adult BMI Screen ing [facility] Start: 01-12-2025 Tobacco Screening Tobacco Screening [facility] Start: 05-28-2024 End: 05-28-2024 Patient encounter procedure 05/28/2024 10:40 AM EDT Office Visit [facility] [address] [place] [address] Di Panchal, TAVIA [address] [place] [address] [facility] Start: 02-13-2024 End: 02-13-2024 Patient encounter procedure [facility] Start: 02-12-2024 End: 02-12-2024 Patient encounter procedure 02/12/2024 2:00 PM EST Appointment Jodie Wong [facility] [place] [address] [place] [phone] [facility] Start: 02-11-2024 End: 02-11-2024 Telemedicine consultation with patient 02/11/2024 8:00 AM EST Telemedicine Maternal- Medicine at [facility] [address] [place] [phone] Duarte Bernard MD [address] [place] [address] M[facility]- Medicine at [facility] Start: 01-27-2024 End: 01-27-2024 ambulatory 01/27/2024 10:30 AM EST Initial [facility] [address] [place] [phone] [facility] Start: 01-26-2024 End: 04-27-2024 US MFM with or without consult US MFM with or without consult Imaging Routine Bicuspid aortic valve Congenital heart disease Ascending aorta dilation (CMS-HCC) Maternal cardiovascular disease affecting in third trimester Expected: 01/26/2024, Expires: 04/27/2024 Jodie Work Phone: Comment on above: Expected: 01/26/2024 , Expires: 04/27/2024 Start: 01-14-2024 End: 01-14-2024 Patient encounter procedure 01/14/2024 10:30 AM EST Routine [facility] [address] [place] [phone] Ella Nicole PA [address] [place] [address] [facility] Start: 12-30-2023 End: 12-29-2024 US biophysical profile w non stress test US biophysical profile w non stress test Imaging Routine Aortic stenosis of mother during Hypothyroid in , antepartum (CMS/HCC) Expected: 12/30/2023 (Approximate), Expires: 12/29/2024 [facility] Work Phone: Comment on above: Expected: 12/30/2023 (Approximate), Expires: 12/29/2024 Start: 12-30-2023 End: 12-29-2024 US for US OB AMNIOTIC FLUID VOLUME Imaging Routine Vaginal discharge during in second trimester Expected: 12/30/2023 (Approximate), Expires: 12/29/2024 [facility] Comment on above: Expected: 12/30/2023 (Approximate), Expires: 12/29/2024 Start: 12-30-2023 End: 12-29-2024 US Pelvis transvaginal US OB transvaginal Imaging Routine Encounter for screening for cervical length Expected: 12/30/2023 (Approximate), Expires: 12/29/2024 [facility] Comment on above: Expected: 12/30/2023 (Approximate), Expires: 12/29/2024 Start: 12-30-2023 End: 12-30-2023 Patient encounter procedure 12/30/2023 10:30 AM EDT Routine [facility] [address] [place] [id number] Sammy Peraza DO [address] [place] [address] [facility] Start: 12-17-2023 End: 12-17-2023 Patient encounter procedure 12/17/2023 10:20 AM EDT Routine [facility] [address] [place] [address] Ella Nicole PA [address] [facility] [place] [address] Arrived [facility] Comment on above: Arrived Start: 11-09-2023 Influenza vaccination [facility] Start: 06-03-2023 ambulatory Ambulatory Facility:[facility] Start: 01-09-2023 End: 01-09-2023 ambulatory 01/09/2023 8:30 AM EDT Rehab Services Visit [facility] [address] [place] [address] [facility] Start: 01-09-2023 End: 01-09-2023 Patient encounter procedure 01/09/2023 8:30 AM EDT Appointment Department of Radiology [address] 1[address] [place] [address] Department of Radiology Start: 12-24-2022 End: 12-25-2023 CT Neck W contrast IV [facility] Comment on above: Expected: 12/24/2022 , Expires: 12/25/2023 1 Occurrences starti ng 12/24/2022 until 12/24/2022 Start: 12-24-2022 End: 12-25-2023 RF videography Hypopharynx and Esophagus Views W liquid and paste contrast PO during swallowing XR FLUORO MODIFIED BARIUM SWALLOW-ENT ONLY Imaging Routine Lymphadenopathy Expected: 12/24/2022, Expires: 12/25/2023 [facility] Comment on above: Expected: 12/24/2022 , Expires: 12/25/2023 Start: 11-08-2022 COVID-19 VACCINE ( season) COVID-19 VACCINE ( season) [facility] Start: 11-08-2022 Influenza vaccination [facility] Start: 11-08-2020 Influenza vaccination INFLUENZA VACC INE (#1) [facility] Start: 03-27-2018 End: 03-27-2018 Ambulatory 03/27/2018 Appointment Ultrasound Darryn Kennedy, BOARD FILLER [address] [address] [phone] Department of Radiology Start: 03-18-2018 End: 03-18-2019 US scan of neck US NECK SOFT TISSUE Routine Other fatigue Lymphadenopathy of head and neck Expected: 03/18/2018, Expires: 03/18/2019 [facility] Work Phone: Comment on above: Expected: 03/18/2018 , Expires: 03/18/2019 Start: 11-08-2017 Influenza vaccination INFLUENZA VACC INE (#1) [facility] Work Phone: Start: 2015 Screening for malign ant neoplasm of cervix [facility] Start: 2013 Hepatitis B vaccination HEP B VACCINE (1 of 3 - 19+ 3-dose series) [facility] Start: 2013 Third diphtheria, tetanus and acellular pertussis (DTaP) vaccination TDAP (ADULT) [facility] Start: 02-04-2012 Adult BMI Follow Up Plan Adult BMI F ollow Up Plan [facility] Start: 02-04-2012 GONORRHEA SCREEN GONORRHEA SCREEN [facility] Work Phone: Start: 02-04-2012 Tetanus vaccination TETANUS [facility] Start: 2010 Screening for Chlamy kyle trachomatis CHLAMYDIA SCREEN [facility] Work Phone: Start: 2009 HIV screening HIV SCREENING DISCUSSI ON [facility] Start: 2007 HIV screening HIV SCREENING DISCUSSI ON [facility] Work Phone: Start: 2006 Depression Screening Depression Scre ening [facility] Start: 03-13-2005 Tetanus vaccination TETANUS [facility] Start: 2005 Vaccination for jelly n papillomavirus HPV VACCINE ADOL (1 - Female 3-dose series) [facility] Work Phone: Start: 02-04-2000 PNEUMOCOCCAL VACCINE SERIES (1 of 2 - PCV) PNEUMOCOCCAL VACCINE SERIES (1 of 2 - PCV) [facility] Start: 1999 COVID-19 VACCINE (1) COVID-19 VACCIN E (1) [facility] Start: 1994 COVID-19 VACCINE (#1) COVID-19 VACCI NE (#1) [facility] Start: 1994 Hepatitis C antibody , confirmatory test HEPATITIS C VIRUS SCREENING [facility] Start: 1994 Hepatitis C screening HEPATITI S C VIRUS SCREENING [facility] CHLAMYDIA TRACHOMATI S (GENITO/STI) CHLAMYDIA TRACHOMATIS (GENITO/STI) Lab Routine Vaginal discharge during in second trimester Ordered: 12/30/2023 [facility] Comment on above: Ordered: 12/30/2023 End: 05-25-2024 nonstress test - Maternal Medicine nonstress test - Maternal Medicine OB Routine Bicuspid aortic valve Congenital heart disease Ascending aorta dilation (CMS-HCC) Maternal cardiovascular disease affecting in third trimester Per Treatment Plan for 6 Occurrences starting 01/26/2024 until 05/25/2024 [facility] Comment on above: Per Treatment Plan f or 6 Occurrences starting 01/26/2024 until 05/25/2024 Laryngoscopy flexibl e diagnostic UT LARYNGOSCOPY FLEXIBLE DIAGNOSTIC UT Charge Routine Lymphadenopathy Ordered: 12/24/2022 [facility] Comment on above: Ordered: 12/24/2022 Neisseria gonorrhoea e DNA [Presence] in Unspecified specimen by VANESSA with probe detection Neisseria gonorrhea DNA probe, direct Lab Routine Vaginal discharge during in second trimester Ordered: 12/30/2023 [facility] Comment on above: Ordered: 12/30/2023 SURESWAB(R) ADVANCED VAGINITIS PLUS, TMA SURESWAB(R) ADVANCED VAGINITIS PLUS, TMA Pathology and Cytology Routine Vaginal discharge during in second trimester Ordered: 12/30/2023 [facility] Comment on above: Ordered: 12/30/2023 End: 06-02-2023 US Thyroid gland [facility] Work Phone: Comment on above: 1 Occurrences starti ng 06/02/2023 until 06/02/2023 Immunizations Immunization Date Immunization Notes Care Provider Fa faisal 01-08-2024 tetanus toxoid, redu allison diphtheria toxoid, and acellular pertussis vaccine, adsorbed [facility] 12-25-2022 influenza, injectabl e, quadrivalent, preservative free [facility] 12-25-2022 influenza virus vaccine, unspecified formulation Latrice Hall MD Work Phone: [facility] 01-08-2016 influenza, injectabl e, quadrivalent, preservative free [facility] 01-08-2016 influenza virus vaccine, unspecified formulation Charlotte Cárdenas MD Work Phone: [facility] 01-02-2015 influenza, seasonal, injectable, preservative free [facility] 12-19-2013 influenza, seasonal, injectable, preservative free [facility] 03-13-1995 DTP-Haemophilus influenzae type b conjugate vaccine [facility] 02-06-1995 measles, mumps and rubella virus vaccine [facility] 1994 DTP-Haemophilus influenzae type b conjugate vaccine [facility] 1994 trivalent poliovirus vaccine, live, oral [facility] 1994 DTP-Haemophilus influenzae type b conjugate vaccine [facility] 1994 trivalent poliovirus vaccine, live, oral [facility] 1994 DTP-Haemophilus influenzae type b conjugate vaccine [facility] 1994 trivalent poliovirus vaccine, live, oral [facility] 1994 haemophilus influenz ae type b vaccine, conjugate unspecified formulation [facility] 1994 haemophilus influenz ae type b vaccine, conjugate unspecified formulation [facility] Payers Date Payer Category Payer Unknown [id number] 2023 Commercial Managed C are - POS [employer] [id number] 2023 Managed Care HMO (unspecified) [id number] 2023 Private Health Insurance [employer] [id number] 2023-Present [address] [place] [address] [id number] [id number] 2023 Private Health Insurance [id number] 2021 Unknown [id number] 2020 Unknown [id number] 1.13.17 2.2.7.3.636076.315 2020 Unknown [id number] 1994 Unknown [id number] 2.16.840.1.441105.3.57 9.2.196 1994 Unknown [id number] 2.16.840.1.382047.3.57 9.2.196 1994 Unknown [id number] 2.16.840.1.576654.3.57 9.2.196 1994 Unknown [id number] 2.16.840.1.502048.3.57 9.2.1260 1994 Unknown [id number] 2.16.840.1.957069.3.57 9.2.594 1994 Unknown [id number] 2.16.840.1.679375.3.57 9.2.594 1994 Unknown [id number] 2.16.840.1.385594.3.57 9.2.594 1994 Unknown [id number] 2.16.840.1.658853.3.57 9.2.594 1994 Unknown [id number] 2.16.840.1.290078.3.57 9.2.594 1994 Unknown [id number] 2.16.840.1.463374.3.57 9.2.594 1994 Unknown [id number] 2.16840.1.550261.3.57 9.2.594 1994 Unknown [id number] 2.16840.1.097082.3.57 9.2.594 1994 Unknown [id number] 2.16840.1.987097.3.57 9.2.173 1994 Unknown [id number] 2.16840.1.688407.3.57 9.2.173 1994 Unknown [id number] 2.16840.1.993606.3.57 9.2.1259 1994 Unknown [id number] 2.16.840.1.450152.3.57 9.2.1259 1994 Unknown [id number] 2.16840.1.870037.3.57 9.2.1259 1994 Unknown [id number] 2.16.840.1.022061.3.57 9.2.1259 1994 Unknown [id number] 2.16840.1.558205.3.57 9.2.1259 1994 Unknown [id number] 2.16.840.1.286388.3.57 9.2.1259 1994 Unknown [id number] 2.16.840.1.260627.3.57 9.2.1259 1994 Unknown [id number] 2.16.840.1.034080.3.57 9.2.1259 1994 Unknown [id number] 2.16.840.1.135409.3.57 9.2.1259 1994 Unknown [id number] 2.16.840.1.202145.3.57 9.2.1259 1994 Unknown [id number] 2.16.840.1.345332.3.57 9.2.1286 1994 Unknown [id number] 2.16.840.1.685891.3.57 9.2.128 1994 Unknown [id number] 2.16.840.1.277551.3.57 9.2.128 1994 Unknown [id number] 2.16840.1.289847.3.57 9.2.128 1994 Unknown [id number] 2.16840.1.509432.3.57 9.2.128 1994 Unknown [id number] 2.16.840.1.871611.3.57 9.2.128 1994 Unknown [id number] 2.16.840.1.954915.3.57 9.2.128 1994 Unknown [id number] 2.16.840.1.184908.3.57 9.2.128 1994 Unknown [id number] 2.16840.1.989002.3.57 9.2.128 1994 Unknown [id number] 2.16.840.1.334250.3.57 9.2.128 1994 Unknown [id number] 2.16.840.1.369498.3.57 9.2.128 1994 Unknown [id number] 2.16.840.1.323624.3.57 9.2.128 1994 Unknown [id number] 2.16.840.1.820596.3.57 9.2.1286 1994 Unknown [id number] 2.16.840.1.211267.3.57 9.2.1286 Social History Date Type Detail Facility Tobacco smoking stat us NHIS Unknown if ever smoked [facility] Work Phone: Start: 1995 Sex Assigned At Not on file [facility] Work Phone: Start: 04-21-2018 End: 09-09-2023 Tobacco smoking status NHIS Never smoked tobacco [facility] Start: 04-21-2018 End: 09-09-2023 Tobacco use and exposure Smokeless tobacco non-user [facility] Start: 06-05-2021 End: 09-22-2023 Alcohol intake Current drinker of alcohol (finding) [facility] Start: 04-15-2020 History SDOH Alcohol Frequency 2 [facility] Start: 04-15-2020 History SDOH Alcohol Std Drinks 1 [facility] Start: 05-10-2021 History SDOH Alcohol Comment 1-2 drinks per month [facility] Start: 05-26-2021 End: 06-05-2021 Exposure to SARS-CoV-2 (event) Not sure [facility] Start: 04-15-2020 End: 04-19-2020 History of Social function [facility] Start: 04-15-2020 End: 04-19-2020 Alcohol Use Disorder Identification Test - Consumption [AUDIT-C] [facility] How often to you hav e a drink containing alcohol? Monthly or less [facility] How many standard dr inks containing alcohol do you have on a typical day? 1 or 2 [facility] How often do you hav e 6 or more drinks on 1 occasion? Never [facility] Start: 03-16-2017 Gender identity Identifies as female gender (finding) [facility] Adolescent depressio n screening assessment 0 [facility] Start: 1995 Sex assigned at Female [facility] Start: 11-26-2023 End: 02-13-2024 Alcoholic beverage intake Ex-drinker (finding) [facility] Start: 06-16-2023 [facility] Start: 06-29-2020 Alcohol Comment rarely [facility] Start: 10-11-2014 Sex Female (finding) [facility] Clinical Notes 06-05-2021 to 02-14-2024 Venecia Stephens RN - 02/13/2024 10:30 AM Stan Lr RN - 02/13/2024 10:30 AM Kurt Bear, - 02/13/2024 10:30 AM Jaime Bernard MD - 02/11/2024 8:00 AM EST Note Date & Type Note Facility 02-14-2024 Note MASCARA MOLDER: [facility] - Women's Services [address] [place] [address] PH: [phone] F: [phone] cardiology and maternal adult congenital cardiology consultation follow-up: February 14, 2024 Patient: Adry Cardenas Date of : 1995 Date of Visit: 02/14/2024 Results of most recent echocardiogram done now with patient at 36 weeks gestation. Bicuspid aortic valve Trivial to mild aortic stenosis, peak instantaneous systolic pressure gradient of 16mmHg Moderate to severely dilated ascending aorta (AsAo: 3.88cm, Z score: 5.42) with stable size and slight improved Z score without progression. Mildly dilated aortic root Trivial aortic valve insufficiency Trivial to mild mitral valve insufficiency Normal biventricular systolic function Patient is 36 weeks and 3 days (YE 03/08/2024) Patient remains asymptomatic with very good blood pressure control and very stable aortic measurements. In fact her Z-score has decreased somewhat compared to her previous echocardiogram. For now the game plan has not changed as far as my cardiac recommendations per my last note. (Please refer to conclusion of last consultation note.) Should you have any further questions or suggestions, please don't hesitate to call me [phone], Sincerely, Chepe Peraza MD, [facility] Professor of Pediatric [facility] Chief, Pediatric Cardiology This note is dictated with the use of M*Modal.Please note that this dictation was completed with computer voice recognition software. Quite often unanticipated grammatical, syntax, homophones, and other interpretive errors are inadvertently transcribed by the computer software. Please disregard these errors. Please excuse any errors that have escaped final proofreading. [facility] 02-13-2024 History of Present illness Narrative Urine [id number]-loeqhldl. Pt seen today for HROB routine @ 36.4 Pt denies VB,LOF, feeling painless contractions 5x hour. Feeling nauseated today. Pt endorses +FM GBS today Declines RSV High Risk Obstetrics - Return Visit at 36w4d Patient Active Problem List Diagnosis Bicuspid aortic valve Palpitations Ocular migraine Dizziness Congenital heart disease Ascending aorta dilation (CMS-HCC) care in third trimester Maternal cardiovascular disease affecting in third trimester Good FM. Denies ctx, VB, LOF. Wt Readings from Last 3 Encounters: 02/13/24 77.4 kg (170 lb 11.2 oz) 02/12/24 75.3 kg (166 lb) 01/27/24 75.5 kg (166 lb 8 oz) See flowsheet -- reviewed Alert, NAD Abd: soft, NT Problem List Cardiovascular and Mediastinum Maternal cardiovascular disease affecting in third trimester [...] dilated aortic root Aortic annulus 2.72 cm MFM: Delivery between 39-40 weeks gestation due to distance. Assisted 2nd stage delivery due to bicuspid aortic valve and aortic root dilation. Patient has been cleared from Cardiology for vaginal delivery. Patient is having her next echocardiography this week (02/12/24). Echo stable InCase aortic root dilation gets worse, patient will be a candidate for Cardiology consult intrapartum. Other care in third trimester Overview testing: weekly NST/DVP until delivery (see 11/[address] Crowley) [facility] Initial and 28 week labs normal. Placenta anterior US today GBS today Echo reviewed from 02/12/24- stable but will confirm stable measurements with Dr Peraza IOL- prefers to wait until 03/08/24 RTC 1w documented in this encounter [employer] 02-11-2024 History of Present illness Narrative REASON FOR TELEMEDICINE VIDEO OFFICE VISIT: Bicuspid aortic valves HISTORY OF PRESENT ILLNESS: Adry Cardenas is a pleasant 29 y.o. G 1 P0 at 36w2d due on Estimated Date of Delivery: 03/08/24 . has been complicated with Bicuspid aortic valve with aortic root dilation due to bicuspid aortic valve. 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 Most recent echocardiography shows Most recent echocardiography done shows stable ECHO [...] remnant in the patient. She has seen signals intelligence analysis manager. No future testing or ultrasound required per Endo. 4. 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 Currently the patient has no complaints. The patient denies nausea, vomiting, abdominal pain, vaginal bleeding, SOB or chest pain. Patient Active Problem List Diagnosis Bicuspid aortic valve Palpitations Ocular migraine Dizziness Congenital heart disease Ascending aorta dilation (CMS-HCC) care in third trimester Maternal cardiovascular disease affecting in third trimester ALLERGIES: Allergies Allergen Reactions Doxycycline ulercative esophagus Clindamycin ulcerated esophagus Clindamycin Erythromycin Spironolactone Amoxicillin Rash Amoxicillin Rash Biaxin [Clarithromycin] Rash Clarithromycin Rash CURRENT MEDICATIONS: Current Outpatient Medications: no115/iron/folic acid ( 19 ORAL), Take by mouth., Disp: , Rfl: Past Medical History: Diagnosis Date Bicuspid aortic valve Thyroid disease REVIEW OF SYSTEMS: Head and Neck: Negative for any dizziness and headaches. Cardiovascular and Respiratory System: Denies any chest pain, shortness of breath, and coughing. Abdominal and System: Denies any abdominal pain, nausea, vomiting, vaginal bleeding, and vaginal discharge RECOMMENDATION: 1. Patient to continue her testing at her local hospital. 2. Delivery between 39-40 weeks gestation due to distance. 3. Assisted 2nd stage delivery due to bicuspid aortic valve and aortic root dilation. Patient has been cleared from Cardiology for vaginal delivery. 4. Patient is having her next echocardiography this week. InCase aortic root dilation gets worse, patient will be a candidate for 5. Cardiology consult intrapartum. 6. Patient does not have any future appointments scheduled with us. Thank you for allowing me to participate in [facility]. If there are any questions, please do not hesitate to call me. Sincerely, DUARTE BERNARD MD Video Visit via Real-time Synchronous Audiovisual Provider Location: [facility] AT [address] [address] Patient Location: Patient's home Patient Location Assistant Portfolio Manager: None Video Visit Consent Statement: I discussed risks, benefits, and alternatives of a real-time synchronous audiovisual consultation with the patient (and any accompanying persons) including the risks that the patient's personal health details and medical records will be discussed over real-time, synchronous, interactive video/audio/telecommunication technology, the visit will not be recorded without the express consent of both the provider and the patient, and that there are some limitations compared to [id number] evaluations. We elected to proceed. documented in this encounter [facility] 01-27-2024 History of Present illness Narrative [facility] Initial High Risk Obstetrics Visit Initial HROB Visit 34w1d Dated by: 8w5d US consistent with LMP Is transferring from other provider Records have been received/reviewed Patient Active Problem List Diagnosis Bicuspid aortic valve Palpitations Ocular migraine Dizziness Congenital heart disease Ascending aorta dilation ([facility]-HCC) Current Outpatient Medications on File Prior [...] patient Rh positive Last cervical cytology in [facility]- Pt reports getting on September 30, [...] candidate for vaginal delivery. Consult Dr. Peraza, tanyard worker at time of delivery. Delivery between 39-40w. Telemetry in labor and 24hrs PP. 2nd stage assist with forceps or vacuum (per Dr. Crowley note). Weekly DVP weekly NST starting at 32w. Growth Q4w. Next would be in 2 weeks. Getting testing at [facility] on 01/12: recommends passive 2nd stage delivery [...] cardiac symptoms. E. Will reach out to [facility] for 28w labs, 1hr gtt, pap results [...] and the clinical opinion of the practitioner. [facility] Initial High Risk Obstetrics Visit Initial HROB Visit CC: transfer of care 34w0d Dated by: 8 week US consistent with LMP Is transferring from other provider Records have been received/reviewed Patient Active Problem List Diagnosis Bicuspid aortic valve Palpitations Ocular migraine Dizziness Congenital heart disease Ascending aorta dilation ([facility]-HCC) Hypothyroidism affecting care in third trimester [...] Problem List Active Problems Ascending aorta dilation ([facility]-H[facility]) Relevant Orders US MFM with or [...] discharge. Denies lower extremity swelling. Pulse-60 Urine aly-pzwhozybrl-bcglg. Oriented to office and contact information given. Verbalizes understanding. Declines RSV vaccine. documented in this encounter [facility] [employer] 01-13-2024 History of Present illness Narrative Headache/epigastric [...] Mild aortic dilation. HISTORY OF PRESENT ILLNESS: Adry Cardenas is a pleasant 28 y.o. G 1 P0 at 32w1d due on Estimated Date of Delivery: 03/08/24 . has been complicated with 1. Maternal aortic bicuspid aortic valve with mild post dilated valvular aortic dilation in the ascending aorta. Last maternal echocardiography in 2020. 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 She has seen signals intelligence analysis manager. No future testing or ultrasound required per Endo. 4. 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 Currently the patient has no complaints. The patient denies nausea, vomiting, abdominal pain, vaginal bleeding, SOB or chest pain. Patient Active Problem List Diagnosis Bicuspid aortic valve Palpitations Ocular migraine Dizziness Congenital heart disease Ascending aorta dilation ([facility]-H[facility]) ALLERGIES: Allergies Allergen Reactions Doxycycline ulercative [...] Complete transfer of care To the Regional garment manufacturing supervisor Clinic at [facility] and delivery at [facility]. 4. Consult to [facility] done today 5. Continue testing at her OB office 6. Delivery at 39 or 40 weeks gestation at [facility] 7. Stable and therefore patient is still a candidate for vaginal delivery. 8. Dr. Peraza Cardiology need to be notified and consulted formally at the time of induction of labor Thank you for allowing me to participate in Adry Cardenas care. If there are any questions, please do not hesitate to call me. Sincerely, DUARTE BERNARD MD documented in this encounter [facility] 01-13-2024 Note Lonnie Peres [address] [facility] [address] January 13, 2024 Patient: Adry Cardenas Date of : 1995 Date of Visit: 01/13/2024 Dear Herve Jimenez MD: I had the pleasure of seeing Adry Cardenas, at our pediatric cardiology clinic on 01/13/2024 for Cardiac follow-up. Adry is an almost 29-year-old female currently at [...] on a single (more content not included)... [facility] 12-30-2023 History of Present illness Narrative Reason for Appointment: Patient ID: Adry Cardenas is a 28 y.o. female who presents for Routine Visit Patient presents today for Return OB appointment. MEDICATIONS Current Outpatient Medications Medication Instructions Metz-3 Fatty Acids (OMEGA 3 PO) Take by [...] nursing note reviewed. Exam conducted with a criminal justice department chair present. Vitals: Estimated body mass index is [...] Sammy Peraza DO documented in this encounter [facility] 12-17-2023 History of Present illness Narrative Reason for Appointment: Patient ID: Adry Cardenas is a 28 y.o. female who presents for Routine Visit Patient presents today for Return OB appointment. MEDICATIONS Current Outpatient Medications Medication Instructions Metz-3 Fatty Acids (OMEGA 3 PO) Oral Vit-DSS-Fe [...] nursing note reviewed. Exam conducted with a criminal justice department chair present. Vitals: Estimated body mass index is [...] of: TAVIA Parsons documented in this encounter [facility] 10-07-2023 Note Lonnie Peres [address] [facility] [address] October 07, 2023 Patient: Adry Cardenas Date of : 1995 Date of Visit: 10/07/2023 Dear Herve Jimenez MD: I had the pleasure of seeing Adry Cardenas, at our pediatric cardiology clinic on 10/07/2023 for Cardiac follow-up. Adry is a [age] y.o. female With a [...] use. She is scheduled to fly to [place] to see her in the near future [...] Normal biventricular systoli (more content not included)... [facility] 10-07-2023 Note Outpatient echo Must use antibiotic for dental procedures May fly Passive second stage deliver in [facility] 09-22-2023 History of Present illness Narrative RFC: Patient with thyroid nodule. Most recent US showing nodule TI-RADS 3 Regan Neves, [place]-* HPI: Ms. Cardenas is a 28 y.o. [...] Hyperlipidemia, Hyperthyroidism, Hypogonadism male, Hypothyroidism, Liver disease, [place] (myocardial infarction), Migraine, Multinodular goiter, LADY (obstructive [...] her mother. Her mother states that when Adry was young she was told that she had hypothyroidism, however no medication was prescribed and this was never followed up on. Adry is currently 16 weeks . Her last [...] hours as needed. lidocaine viscous-Alum & Mag Lwmetnubb-Vjxhei-wcbhkfvdsnCTIXV oral mouthwash Swish and swallow 15mL by mouth every 6 hours as needed. norgestimate-ethinyl estradiol (Sprintec 28) 0.25-35 MG-MCG tablet Take 1 tablet by mouth at bedtime. nystatin 014792 UNIT/ML oral suspension Swish and swallow 10 [...] Echogenicity: Hyperechoic or isoechoic (1 point) Shape: Fjcrm-vzsc-vyfv (0 points) Margin: Smooth (0 points) Echogenic [...] Division of Endocrinology, Diabetes, and Metabolism [facility] [place] [address] No follow-ups on file. Patient has verified [...] Division of Endocrinology, Diabetes, and Metabolism [facility] [place] [address] documented in this encounter [facility] 09-22-2023 Instructions Latrice Hall MD - 09/22/2023 1:30 PM EDT It was great seeing you today! Division of Endocrinology Outpatient Care [facility] Follow-up appointments: Please arrive at [...] Any non-urgent results will be relayed via bodaplanest if you have signed up for this service or via a letter through the mail and/or phone call. Communication with your provider: - [facility] is highly recommended as the most efficient [...] you for your future visits: [email or web address]/ endocrinology --> Patient Care section. Sincerely, Latrice Hall MD Fellow, Division of Endocrinology, Diabetes, and Metabolism [facility] [place] [address] documented in this encounter [facility] 09-22-2023 Procedure note Associated Ord er(s): CHG US SOFT TISSUE HEAD & NECK REAL TIME IMGE DOCM Ms. Cardenas was seen and examined with Dr. Rayan, I independently verified the findings on US and agree with the documented report - thyroid ultrasound report appears in the notes tab. [facility] 09-22-2023 Procedure note Associated Ord er(s): CHG US SOFT TISSUE HEAD & NECK REAL TIME IMGE DOCM Ms. Cardenas was seen and examined with Dr. Hall, I independently verified the findings on US and agree with the documented report - thyroid ultrasound report appears in the notes tab. documented in this encounter [facility] 12-24-2022 History of Present illness Narrative Chief Complaint: Chief Complaint Patient presents with New Patient Reports right side of neck with questionable swelling, continues to have problems with food getting stuck. Has to wash down food with liquids. HPI: Adry Cardenas is a 27 y.o. female smoker / non-smoker who presents 12/24/22 to the [facility] for [...] N/A; Surgeon: Ramin Denney MD; [facility] WISDOM TEETH EXTRACTION Social History [...] 1 Bottle 0 lidocaine viscous-Alum & Mag Vggphkthi-Sfcgyh-pedrqkjshnBGXGE oral mouthwash Swish and swallow 15mL by mouth every 6 hours as needed. 240 mL 0 norgestimate-ethinyl estradiol (Sprintec 28) 0.25-35 MG-MCG tablet Take 1 tablet by mouth at bedtime. nystatin 434267 UNIT/ML oral suspension Swish and swallow 10 [...] and mobile Flexible laryngoscopy completed per Dr. Armas - PABLO Data: CT Neck - 11/30/2018 IMPRESSION: 1. [...] to wash down food with liquids. HPI: Adry Cardenas is a 27 y.o. female smoker / non-smoker who presents 12/24/22 to the [facility] for [...] 1 Bottle 0 lidocaine viscous-Alum & Mag Dhntlqzsj-Pcuwoi-vzcujzpjfqTVSNQ oral mouthwash Swish and swallow 15mL by mouth every 6 hours as needed. 240 mL 0 norgestimate-ethinyl estradiol (Sprintec 28) 0.25-35 MG-MCG tablet Take 1 tablet by mouth at bedtime. nystatin 092982 UNIT/ML oral suspension Swish and swallow 10 [...] concerning. documented in this encounter [facility] 11-20-2022 History of Present illness Narrative Maternal- Medicine (High Risk Obstetrics) Consultation Indication for consultation: Congenital Bicuspid aortic valve Referring Provider: Herve Jimenez MD History Adry Cardenas is a 27yo G0 LMP [id number] using nothing for contraception who presents for preconception consultation in the setting of hx congenital bicuspid aortic valve. Her history is also notable for a history of exercise induced asthma and thyroid nodule. She feels well today and has no complaints or concerns. She was recently seen by Dr. Peraza ([facility]) for preconception counseling on 05/21/2022 at [...] [facility]. She does not currently have an street sprinkler. Ms. Adry Cardenas has the following problems that will [...] N/A; Surgeon: Ramin Denney MD; [facility] MAIN OR WISDOM TEETH EXTRACTION - [...] 1 Bottle 0 lidocaine viscous-Alum & Mag Fhuefffje-Brlsgg-ffckkrjttjHBBII oral mouthwash Swish and swallow 15mL by mouth every 6 hours as needed. 240 mL 0 norgestimate-ethinyl estradiol (Sprintec 28) 0.25-35 MG-MCG tablet Take 1 tablet by mouth at bedtime. nystatin 333812 UNIT/ML oral suspension Swish and swallow 10 [...] . --. SCAN INFO ======= GENERAL SCANNER RESEARCH DIRECTOR: [facility] MODEL: [place] [employer] Latosha PULSE SEQUENCES: SSFP cine, HASTE morphology, [...] is no pericardial effusion. Assessment & Plan Adry Cardenas is a 27 y.o. No obstetric [...] aortic valve and has been followed by [facility]. The patient is currently asymptomatic from a cardiac standpoint, but is at risk for aortic dissection (especially given known ascending aortic dilation), heart failure, [place], and arrhythmias due to expected cardiovascular changes [...] as Marfan syndrome. The patient qualifies for [facility] risk classification II-III which confers an intermediate increase in risk of maternal mortality, moderate to severe increase in morbidity, and a 11-19% risk of maternal cardiac event for which recommend consultation with heart team for baseline echocardiogram, clinical assessments every trimester, and delivery at a level II or higher maternal care center. Summary of Recommendations: Ms. Adry Cardenas has a condition that would make a higher risk for maternal and complications. If, with an understanding of the risks (detailed above), she decides to pursue , the following are recommendations to decrease the chances and severity of complications: Recommendations during - CAUSTIC LOADER referral for multi-disciplinary care coordination - Baseline [...] would be appropriate for co-managed care with [facility] for ultrasounds and visits every trimester and that she should contact and establish care obstetrical care with [facility] general street sprinkler practice once has a positive test. Thank [...] and Gynecology Division of Maternal Medicine [facility] documented in this encounter [facility] 06-05-2021 Instructions Charlotte Cárdenas MD - 06/05/2021 11:42 AM EDT ASSESSMENT/PLAN: Status post tonsillectomy Healing well Pathology benign Followup as needed documented in this encounter [facility] 06-05-2021 History of Present illness Narrative [...] as needed documented in this encounter [facility] Evaluation note Diagnosis Postop check- Primary Follow-up examination, following unspecified surgery [facility] Diagnosis Encounter for preconception consultation- Primary Bicuspid aortic valve Congenital insufficiency of aortic valve [facility] Diagnosis Lymphadenopathy- Primary Enlargement of lymph nodes documented [facility] Diagnosis Lymphadenopathy Enlargement of lymph nodes [facility] Diagnosis Lymphadenopathy Enlargement of lymph nodes documented [facility] Diagnosis Thyroid nodule Nontoxic uninodular goiter [facility] Diagnosis Thyroid nodule- Primary Nontoxic uninodular goiter [facility] Diagnosis 28 weeks gestation of Third trimester state, incidental documented in this encounter [facility]* Diagnosis 30 weeks gestation of Third trimester state, incidental Aortic stenosis of mother during Hypothyroid in , antepartum (CMS/HCC) Vaginal discharge during in second trimester Encounter for screening for cervical length documented in this encounter [facility]* Diagnosis Ascending aorta dilation (CMS-HCC)- Primary Thoracic aneurysm without mention of rupture 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 [facility] Diagnosis Maternal cardiovascular disease affecting in third trimester- Primary Bicuspid aortic valve Congenital insufficiency of aortic valve Palpitations Congenital heart disease Unspecified congenital anomaly of heart Ascending aorta dilation (CMS-HCC) Thoracic aneurysm without mention of rupture Hypothyroidism affecting , antepartum 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 [facility] Diagnosis Maternal cardiovascular disease affecting in third trimester- Primary [facility] Diagnosis Maternal cardiovascular disease affecting in third trimester- Primary care in third trimester [facility]* Attachments The following attachments cannot be sent through Care Everywhere. * [facility] SMOKING CESSATION [facility] on file documented in this [facility] System[facility]ructionsNot on file documented in this [facility] SystemInstructionsNot on file [facility] Reason for Referral Status Reason Specialty Diagnoses / Procedures Referred By Contact Referred To Contact New Request Diagnoses Other fatigue Lymphadenopathy of head and neck Procedures US NECK SOFT TISSUE Darryn Kennedy, BOARD FILLER [address] [address] Specialty Diagnoses / Procedures Referred By Contac t Referred To Contact Diagnoses Lymphadenopathy Procedures XR FLUORO MODIFIED BARIUM SWALLOW-ENT ONLY CHG RADIOLOGIC EXAM ESOPHAGUS SINGLE CONTRAST STUDY EdinsonRegan, [place]-BOARD FILLER [address] [place] [phone] Referral ID Status Reason Start Date Expiration Date V isits Requested Visits Authorized [id number] Auth Not Needed 12/24/2022 01/18/2024 1 1 Specialty Diagnoses / Procedures Referred By Contac t Referred To Contact Diagnoses Lymphadenopathy EdinsonRegan, [place]-BOARD FILLER [address] [place] [phone] Referral ID Status Reason Start Date Expiration Date V isits Requested Visits Authorized [id number] Pending Review 12/24/2022 01/18/2024 1 1 Specialty Diagnoses / Procedures Referred By Contac t Referred To Contact Diagnoses Lymphadenopathy Procedures CT NECK WITH CONTRAST UT CT NECK TISSUE CONTRAST EdinsonRegan veronica, [facility] [address] [place] [phone] Referral ID Status Reason Start Date Expiration Date Visits Re quested Visits Authorized [id number] Closed 12/24/2022 01/18/2024 1 1 Referral ID Status Reason Start Date Expiration Date Visits Re quested Visits Authorized [id number] Closed 12/24/2022 01/18/2024 1 1 Specialty Diagnoses / Procedures Referred By Contac t Referred To Contact Diagnoses Thyroid nodule Procedures US THYROID UT US,HEAD/NECK TISSUES,REAL TIME Herve Jimenez MD [address] [place] [address] [facility] [address] [place] [address] Referral ID Status Reason Start Date Expiration Date V isits Requested Visits Authorized [id number] New Request 05/27/2023 06/20/2024 1 1 Specialty Diagnoses / Procedures Referred By Contac t Referred To Contact Diagnoses Thyroid nodule Procedures US [facility] Andres Torres MD [address] [place] [address] [place] [address] Referral ID Status Reason Start Date Expiration Date V isits Requested Visits Authorized [id number] New Request 09/22/2023 10/16/2024 1 1 Assessments [...] section and content) DATE CREATED AUTHOR 08/07/2020 [facility] DATE CREATED AUTHOR AUTHOR'S ORGANIZ ATION 05/28/2022 [facility] DATE CREATED AUTHOR AUTHOR'S ORGANIZ ATION 05/24/2023 [facility] DATE CREATED AUTHOR AUTHOR'S ORGANIZ ATION 09/26/2023 [facility] DATE CREATED AUTHOR AUTHOR'S ORGANIZ ATION 12/17/2023 [facility] DATE CREATED AUTHOR AUTHOR'S ORGANIZ ATION 01/28/2024 [facility] Special[facility] EPIC DATE CREATED AUTHOR AUTHOR'S ORGANIZ ATION 02/17/2024 [facility] DATE CREATED AUTHOR AUTHOR'S ORGANIZ ATION 02/17/2024 [facility] Reason for Visit (unrecogniz ed section and content) Reason Comments Post Op Visit TONSILLECTOMY - Bila teral with Charlotte Cárdenas MD on 05/10/2021, pt did have some bleeding post op, doing well now, some tenderness to surgical site. Specialty Diagnoses / Procedures Referred By Contac t Referred To Contact Diagnoses Bicuspid aortic valve Congenital heart disease Procedures MRI ANGIO CHEST WITH AND WITHOUT CONTRAST MRA W/O FOL W/CONT, CHEST Chepe Peraza MD [address] [place] [address] [facility] [address] [place] [phone] Referral ID Status Reason Start Date Expiration Date V isits Requested Visits Authorized [id number] Auth Not Needed 05/29/2022 06/23/2023 1 1 [...] Self, Self Emile Armas MD [address] [place] [phone] Referral ID Status Reason Start Date Expiration Date Visits Re quested Visits Authorized [id number] Closed 12/24/2022 01/18/2024 1 1 Specialty Diagnoses / Procedures Referred By Charityac t Referred To Contact Diagnoses Lymphadenopathy Procedures CT NECK WITH CONTRAST UT CT NECK TISSUE CONTRAST Regan Neves, VERITO-BOARD FILLER [address] [place] [address] Referral ID Status Reason Start Date Expiration Date Visits Re quested Visits Authorized [id number] Closed 12/24/2022 01/18/2024 1 1 Specialty Diagnoses / Procedures Referred By Contac t Referred To Contact Diagnoses Lymphadenopathy Procedures XR FLUORO MODIFIED BARIUM SWALLOW-ENT ONLY CHG RADIOLOGIC EXAM ESOPHAGUS SINGLE CONTRAST STUDY Regan Neves [place]-BOARD FILLER [address] [place] [phone] Referral ID Status Reason Start Date Expiration Date Visits Re quested Visits Authorized [id number] Closed 12/24/2022 01/18/2024 1 1 Specialty Diagnoses / Procedures Referred By Contac t Referred To Contact Diagnoses Thyroid nodule Procedures US THYROID UT US,HEAD/NECK TISSUES,REAL TIME Herve Jimenez MD [address] [address] [facility] [address] [place] [address] Referral ID Status Reason Start Date Expiration Date V isits Requested Visits Authorized [id number] New Request 05/27/2023 06/20/2024 1 1 Reason Comments Thyroid Nodule Specialty Diagnoses / Procedures Referred By Contac t Referred To Contact Endocrinology, Diabetes & Metabolism Diagnoses Thyroid nodule Regan Neves, [place]-BOARD FILLER [address] [place] [address] Referral ID Status Reason Start Date Expiration Date V isits Requested Visits Authorized [id number] Pending Review 06/04/2023 06/28/2024 1 1 Reason Comments Routine Visit Reason Comments aortic root dilation aortic stenosis Reason Comments Routine Visit Specialty Diagnoses / Procedures Referred By Contac t Referred To Contact Obstetrics & Gynecology / Obstetrics and Gynecology Diagnoses Ascending aorta dilation ([facility]) 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 Duarte Bernard MD [address] [facility] [address] [place] [address] Phone: tel: fax: 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 [facility] [employer] [facility]. provides no warranty or guarantee of the accuracy or completeness of information in this document.
[2024-02-18 10:58] VITALS: BP 117/74; PULSE 77
== END 2024-02-18 11:35 | disposition home or self-care (01) ==
LOC: FBCO 06:03 → FBC 10:01
PROVIDERS: Visit Provider Obstetrics & Gynecology
DX: O99.413 Diseases of the circulatory system complicating pregnancy, third trimester (principal); Z3A.37 37 weeks gestation of pregnancy
CPT/HCPCS: 76818

== ENCOUNTER 2024-02-23 06:10 | Outpatient (OUT) | payer OTHER, SELFPAY ==
--- NOTE | 2024-02-23 | US_ITS ---
[address] [address] Patient Name: ADRY LEVY MRN: [id number] date: 1995 Sex: F Assigned Patient Location: [facility] Current Patient Location: [facility] Accession/Order Number: [id number] Exam Date: 02/23/2024 10:50 Report Date: 02/23/2024 13:20 At the request of: RICKY PHAM Procedure: US OB BPP w non-stress EXAMINATION: US OB BPP w non-stress HISTORY: Aortic stenosis of mother O99.419 COMPARISON: No relevant comparison available. TECHNIQUE: Ultrasound biophysical profile was performed in the radiology department. non-reactive stress testing was performed by nursing staff in the birthing center. FINDINGS: BREATHING MOVEMENTS: 2 GROSS BODY MOVEMENTS: 2 TONE: 2 QUALITATIVE AMNIOTIC FLUID VOLUME: 2 PRESENTATION: CEPHALIC HEART RATE: 128.57 bpm AMNIOTIC FLUID VOLUME: 17.0cm GESTATIONAL AGE: 38w0d US/US OB BPP w non-stress IMPRESSION: Total biophysical profile score: 8 *Reference: [facility] Practice Guideline for the performance of Obstetric Ultrasound Examinations, December 08, 2006. Electronically authenticated by: EULOGIO BARCLAY Date: 02/23/2024 13:20
--- OUTSIDE RECORDS SUMMARY | 2024-02-23 06:13 | XMS_ITS | CCD ---
Author Organization [facility] Care Team Providers Care Glass Technician Name Role Phone Unavailable Unavailable Unavailable Herve Jimenez MD Primary Care Provider Chepe Peraza MD Unavailable Herve Jimenez MD Primary Care Unavail able Cristian DORADO, Jake Og Attending UnavailHerve Chiang MD Primary Care Unavail swathi Foster MD, Jake Og Attending Unavailfred Foster MD, Jake Og Attending UnavailHerve Chiang MD Primary Care Unavail able Herve Jimenez MD Primary Care Provider Chepe Peraza MD Unavailable [phone] Herve Jimenez MD Primary Care Provider HERVE JIMENEZ Attending Unavailable Chepe Peraza MD Unavailable [phone] LATRICE HALL Attending Unavailable BARBARA HERVE [...] Attending Unavailable BONNIE, ELLA Attending Unavailable BONNIE, ELAL Attending Unavailable STU, SAMMY Attending Unavailable BONNIE, [...] STU, SAMMY R Referring Unavailable SHOEMAKER, HERVE EKNYA Primary Care Unavailabl e PERAZACHEPE ARCE Referring Unavailable SHOEMAKER, HERVE KENYA Primary Care Unavailabl e SHOEMAKER, HERVE KENYA Referring Unavailabl e SHOEMAKER, HEVRE KENYA Primary Care Unavailabl e SHOEMAKER, HERVE KENYA Referring Unavailabl e SHOEMAKER, HERVE KENYA Primary Care Unavailabl e KORTNEY SPARROW Referring Unavail able HERVE JIMENEZ Primary Care Unavailfaith e HERVE JIMENEZ Referring Unavailabl e HERVE JIMENEZ Primary Care Unavailabl e Allergies Allergy Classification Reported Allergen(s) Allergy Type Date of Onset Reaction(s) Facility (20 sources) Amoxicillin; Translations: [amoxicillin] Drug Allergy 04-14-19 13 Rash, Unknown [facility] Work Phone: (18 sources) Clarithromycin; Translations: [clarithromycin] Drug Allergy 10-07-19 16 Rash [facility] Work Phone: (20 sources) Clindamycin; Translations: [clindamycin] Drug Allergy 03-16-19 18 [facility] Work Phone: (20 sources) Doxycycline; Translations: [doxycycline] Drug Allergy 04-14-19 13 Unknown [facility] Work Phone: (13 sources) Clarithromycin Propensity to adverse reactions to drug 10-07-19 16 Rash, Unknown [facility] Work Phone: (14 sources) Erythromycin; Translations: [ERYTHROMYCIN] Drug Allergy 04-14-19 13 [facility] (9 sources) Spironolactone; Translations: [SPIRONOLACTONE] Drug Allergy 05-27-19 24 Dizziness [facility] (7 sources) Clindamycin/Lincom ycin Drug Intolerance 07-13-19 15 Unknown [facility] (3 sources) Spironolactone Drug Allergy 09-09-19 24 [facility] (1 source) Lincomycin; Translations: [LINCOMYCIN] Drug Allergy 07-13-19 15 [facility] Repository Medications Current Medications Medication Drug Class(es) [...] 0 05/22/2021 Active lidocaine viscous-Alum & Mag Byyozlmhq-Tncwjv-xudcutexdhYWUGR oral mouthwash (8 sources) Start: 05-22-2021 take 15 mL by mouth every six hours as needed lidocaine viscous-Alum & Mag Ewgfabzpo-Lunyha-nzxowknhhmTYTKO oral mouthwash Swish and swallow 15mL by mouth every 6 hours as needed. 240 mL 05/22/2021 Active Start: 05-22-2021 take 15 mL by mouth every six hours as needed lidocaine viscous-Alum & Mag Wxyztfryi-Chzkdz-tqdtiujuhtRXKCI oral mouthwash Swish and swallow 15mL by mouth every 6 hours as needed. 240 mL 0 05/22/2021 Active nystatin [id number] unt/ml oral suspension (8 sources) Polyene Antifungal Start: 05-16-2021 take 10 mL by mouth four times daily nystatin 094664 UNIT/ML oral suspension Swish and swallow 10 mL 4 times daily. 280 mL 05/16/2021 Active [place]-3 Fatty Acids (OMEGA 3 PO) (7 sources) [place]-3 Fatty Ac ids (OMEGA 3 PO) Take [...] 05/22/2021 Active no115/iron/folic acid ( 19 ORAL) (5 sources) no115/iron/folic acid ( 19 ORAL) Take [...] Onset: 11-20-2022 11-20-2022 Episodic Headache; including migraine (5 sources) Ophthalmic migraine; Translations: [Migraine with aura, [...] second trimester] 12-30-2023 Episodic Other complications of (19 sources) Disorder of cardiovascular system; Translations: [Diseases of the circulatory system complicating , second trimester] Onset: 01-26-2024 01-13-2024 Episodic Other complications of (1 source) Diseases of the circulatory system complicating , third trimester; Translations: [Diseases of the circulatory system complicating , third trimester] Onset: 02-18-2024 Episodic Other complications of (1 source) Endocrine, nutritional and metabolic diseases complicating , unspecified trimester; Translations: [Endocrine, nutritional and metabolic diseases complicating , unspecified trimester] Onset: 01-26-2024 Episodic Other and delivery including normal (11 sources) Third trimester ; Translations: [Encounter for [...] cholecystitis] Onset: 04-05-2019 04-06-2019 Episodic Cardiac dysrhythmias (9 sources) Palpitations; Translations: [Palpitations] Onset: 07-15-2017 07-15-2017 Episodic Conditions associated with dizziness or vertigo (5 sources) Dizziness; Translations: [Dizziness and giddiness] Onset: 06-29-2020 06-29-2020 Episodic Lymphadenitis (6 sources) Generalized enlarged lymph nodes; Translations: [Lymphadenopathy] Onset: 01-09-2023 12-24-2022 Episodic Mood disorders (5 sources) Mood disorders Onset: 12-24-2022 12-24-2022 Other complications of (7 sources) Hypothyroidism in ; Translations: [Endocrine, nutritional [...] Range Facility 36on 02-14-2024 36 Sent via [employer] fax Normal [facility] 36 I called her yesterday morning and discussed this with her already so this must be an older message. Normal [facility] Documentationon 02-14-2024 Documentation [id number] Segundo CardenasKenna 1995 F Date Provider Department Center 02/14/2024 CHEPE GOODSON PED Simon Rao No family history on file Normal [facility] 36on 02-13-2024 36 Patient stated that she completed an ECHO recently and is now 36 wks . Her JAVA SOFTWARE DEVELOPER wants a note on the results and how to proceed with delivery. JAVA SOFTWARE DEVELOPER: [facility] [address] [place] [address] PH: [phone] F: [phone] Normal [facility] STREP B SCREEN CULTUREon S. agalactiae Org specific cx Ql (Vag+Rectum) SPECIMEN NOTES ALLERGY TO PENICILLIN CULTURE RESULTS NEGATIVE FOR GROUP B STREPTOCOCCUS BY NUCLEIC ACID AMPLIFICATION Normal [facility] Comment on above: Performed By: #### 7 2607-5 #### [facility] ([id number]) [address], [address] [place] [address] 37on 01-13-2024 37 Echo results: Bicuspid aortic [...] not dizzy. ECHO at 36 weeks Normal [facility] Office Visiton 01-13-2024 Follow-up visit [id number] Lisa Cardenas 1995 F Date Provider Department Center 01/13/2024 CHEPE GOODSON PED Simon Rao No family history on file Level of Service:61398 AL OFFICE/OUTPATIENT ESTABLISHED MOD MDM 30 MIN Reason for Visit and Comments: Aortic Dilatation [Other] - 32 wks Normal [facility] Orders Onlyon 01-13-2024 Orders Only [id number] Lisa Cardenas 1995 F Date Provider Department Center 01/13/2024 [id number] HAGER RPW PED Simon Rao No family history on file Normal [facility] Urinalysis macro (dipstick) panel (U)on 12-30-2023 Bilirubin, UA Negative Negative - 4(70) +++ mg/dL [facility] Blood, UA Negative Negative - 50 Sina/mcL [facility] Clarity, UA Clear [facility] Color, UA Yellow [facility] Glucose, UA Negative Negative - 1999(110) ++++ mg/dL [facility] Interpretation and review of laboratory results Normal [facility] Ketones, UA Negative Negative - 160(16) ++++ mg/dL [facility] Leukocytes, UA Negative Negative - 500+++ Amos/mcL [facility] Nitrite, UA Negative Negative - Positive [facility] pH, UA 6.5 5 - 9 [facility] Protein, UA Negative Negative - 1999(20) ++++ mg/dL [facility] Spec Grav, UA 1.015 1 - 1.03 [facility] Urobilinogen, UA 0.2 0.2 - 12 mg/dL [facility] TBH UA (CLEAN/CATCH) SPONGE BUFFER/GIUSEPPE RO IF IND.on 12-27-2023 BILIRUBIN URINE Negative NEGATIVE [facility] BLOOD URINE Negative NEGATIVE [facility] Clarity (U) CLEAR CLEAR [facility] Color (U) LT. YELLOW YELLOW [facility] GLUCOSE URINE UA Negative NEGATIVE mg/dL [facility] Interpretation and review of laboratory results Abnormal [facility] Ketones Ql (U) TRACE Abnormal NEGATIVE mg/dL [facility] Leukocyte esterase Test strip Ql (U) Negative NEGATIVE [facility] NITRITE URINE Negative NEGATIVE [facility] pH (U) 7.0 [pH] 5.0 - 9.0 [facility] PROTEIN URINE Negative NEG/TRACE mg/dL [facility] SPECIFIC GRAVITY URINE <=1.005 Abnormal 1.005 - 1.025 [facility] URINE MICROSCOPIC INDICATED NO [facility] UROBILINOGEN URINE 0.2 EU/dL 0.2 - 1.0 EU/dL [facility] Urinalysis macro (dipstick) panel (U)on 12-17-2023 Bilirubin, UA Negative Negative - 4(70) +++ mg/dL [facility] Blood, UA Negative Negative - 50 Sina/mcL [facility] Clarity, UA Clear [facility] re Color, UA Yellow [facility] Glucose, UA Negative Negative - 1999(110) ++++ mg/dL [facility] Interpretation and review of laboratory results Abnormal [facility] Ketones, UA Negative Negative - 160(16) ++++ mg/dL [facility] Leukocytes, UA Trace Negative - 500+++ Amos/mcL [facility] Nitrite, UA Negative Negative - Positive [facility] pH, UA 7.5 5 - 9 [facility] Protein, UA Negative Negative - 1999(20) ++++ mg/dL [facility] Spec Grav, UA 1.020 1 - 1.03 [facility] Urobilinogen, UA 0.2 0.2 - 12 mg/dL [facility] CBC with Diffon 12-09-2023 Abs. Basophil 0.09 k/uL Normal 0.00-0.20 [facility] Comment on above: Performed By: #### C P, CDP #### [facility] [address] [place] [address] [place] [address] Product Ambassador: Clark Mata MD Abs.Imm.Granulocyte 0.17 k/uL Normal 0.00-0.30 [facility] Comment on above: Performed By: #### C P, CDP #### [facility] [address] [place] [address] [place] [address] Product Ambassador: Clark Mata MD Abs.Neutrophil (Seg) 5.63 k/uL Normal 1.50-8.10 [facility] Comment on above: Performed By: #### C P, CDP #### [facility] [address] [place] [address] [place], [id number] Product Ambassador: Clark Mata MD Basophils/100 WBC (Bld) 1 % Normal 0-2 [facility] Comment on above: Performed By: #### C P, CDP #### [address] [place], [place] [id number] Product Ambassador: Clark Mata MD Eosinophils (Bld) [#/Vol] 0.13 10*3/uL Normal 0.00-0.44 [facility] Comment on above: Performed By: #### C P, CDP #### [address] [place], [place] [address] Product Ambassador: Clark Mata MD Eosinophils/100 WBC (Bld) 2 % Normal 1-4 [facility] Comment on above: Performed By: #### C P, CDP #### [address] [place], [facility] Product Ambassador: Clark Mata MD Erythrocyte distribution width (RBC) [Ratio] 12.7 % Normal 11.8-14.4 [facility] Comment on above: Performed By: #### C P, CDP #### [address] [place], [id number] Product Ambassador: Clark Mata MD Hematocrit (Bld) [Volume fraction] 36.4 % Normal 36.3-47.1 [facility] Comment on above: Performed By: #### C P, CDP #### [address] [place], [facility] Product Ambassador: Clark Mata MD Hemoglobin (Bld) [Mass/Vol] 12.6 g/dL Normal 11.9-15.1 [facility] Comment on above: Performed By: #### C P, CDP #### [address] [place] [address] Product Ambassador: Clark Mata MD Immature granulocytes/100 WBC (Bld) 2 % High 0 [facility] Comment on above: Performed By: #### C P, CDP #### [facility] [address] [place], [place] [id number] Product Ambassador: Clark Mata MD Lymphocytes (Bld) [#/Vol] 1.80 10*3/uL Normal 1.10-3.70 [facility] Comment on above: Performed By: #### C P, CDP #### [facility] [address] [place] [address] Product Ambassador: Clark Mata MD Lymphocytes/100 WBC (Bld) 21 % Low 24-43 [facility] Comment on above: Performed By: #### C P, CDP #### [address] [place], [place] [id number] Product Ambassador: Clark Mata MD MCH (RBC) [Entitic mass] 30.4 pg Normal 25.2-33.5 [facility] Comment on above: Performed By: #### C P, CDP #### [address] [place], [place] [id number] Product Ambassador: Clark Mata MD MCHC (RBC) [Mass/Vol] 34.6 g/dL Normal 28.4-34.8 [facility] Comment on above: Performed By: #### C P, CDP #### [address] [place], [place] 1929283 Product Ambassador: Clark Mata MD MCV (RBC) [Entitic vol] 87.9 fL Normal 82.6-102.9 [facility] Comment on above: Performed By: #### C P, CDP #### [address] [place] [address] Product Ambassador: Clark Mata MD Monocytes (Bld) [#/Vol] 0.61 10*3/uL Normal 0.10-1.20 [facility] Comment on above: Performed By: #### C P, CDP #### [facility] [address] [place], [place] [id number] Product Ambassador: Clark Mata MD Monocytes/100 WBC (Bld) 7 % Normal 3-12 [facility] Comment on above: Performed By: #### C P, CDP #### [facility] [address] [place], [place] [id number] Product Ambassador: Clark Mata MD Neutrophil (Seg) 67 % High 36-65 [facility] Comment on above: Performed By: #### C P, CDP #### [facility] [address] [place], [place] [id number] Product Ambassador: Clark Mata MD NRBC Automated 0.0 per 100 WBC Normal 0.0 [facility] Comment on above: Performed By: #### C P, CDP #### [facility] [address] [place], [place] [id number] Product Ambassador: Clark Mata MD Platelet mean volume (Bld) [Entitic vol] 10.7 fL Normal 8.1-13.5 [facility] Comment on above: Performed By: #### C P, CDP #### [address] [place], [place] [id number] Product Ambassador: Clark Mata MD Platelets (Bld) [#/Vol] 162 10*3/uL Normal 138-453 [facility] Comment on above: Performed By: #### C P, CDP #### [facility] [address] [place], [place] [id number] Product Ambassador: Clark Mata MD RBC (Bld) [#/Vol] 4.14 10*6/uL Normal 3.95-5.11 [facility] Comment on above: Performed By: #### C P, CDP #### [facility] [address] [place], [place] 2572183 Product Ambassador: Clark Mata MD WBC (Bld) [#/Vol] 8.4 10*3/uL Normal 3.5-11.3 [facility] Comment on above: Performed By: #### C P, CDP #### [facility] [address] [place], [place] [id number] Product Ambassador: Clark Mata MD Comp Metabolic Profon 2023 Albumin [Mass/Vol] 3.7 g/dL Normal 3.5-5.2 [facility] Comment on above: Performed By: #### C P, CDP #### [address] [place], [place] [id number] Product Ambassador: Clark Mata MD Albumin/Glob Ratio 1.4 Normal 1.0-2.5 [facility] Comment on above: Performed By: #### C P, CDP #### [facility] [address] [place] [address] [place], [place] [id number] Product Ambassador: Clark Mata MD Alkaline Phos 47 U/L Normal 35-104 [facility] Comment on above: Performed By: #### C P, CDP #### [address] [place], [place] 0165283 Product Ambassador: Clark Mata MD ALT [Catalytic activity/Vol] 13 U/L Normal 10-35 [facility] Comment on above: Performed By: #### C P, CDP #### [facility] [address] [place], [place] 4403183 Product Ambassador: Clark Mata MD Anion gap [Moles/Vol] 9 mmol/L Normal 9-16 [facility] Comment on above: Performed By: #### C P, CDP #### [facility] [address] [place], [place] [id number] Product Ambassador: Clark Mata MD AST [Catalytic activity/Vol] 16 U/L Normal 10-35 [facility] Comment on above: Performed By: #### C P, CDP #### [facility] [address] [place], [place] [id number] Product Ambassador: Clark Mata MD Bilirubin [Mass/Vol] 0.3 mg/dL Normal 0.00-1.20 [facility] Comment on above: Performed By: #### C P, CDP #### [facility] [address] [place], [place] [id number] Product Ambassador: Clark Mata MD BUN/CRE Ratio 17 Normal 9-20 [facility] Comment on above: Performed By: #### C P, CDP #### [facility] [address] [place], [place] [id number] Product Ambassador: Clark Mata MD Calcium [Mass/Vol] 8.7 mg/dL Normal 8.6-10.4 [facility] Comment on above: Performed By: #### C P, CDP #### [facility] [address] [place], [place] [id number] Product Ambassador: Clark Mata MD Chloride [Moles/Vol] 104 mmol/L Normal 98-107 [facility] Comment on above: Performed By: #### C P, CDP #### [facility] [address] [place], [place] [id number] Product Ambassador: Clark Mata MD CO2 [Moles/Vol] 21 mmol/L Normal 20-31 [facility] Comment on above: Performed By: #### C P, CDP #### [facility] [address] [place], [place] [id number] Product Ambassador: Clark Mata MD Creatinine [Mass/Vol] 0.6 mg/dL Normal 0.50-0.90 [facility] Comment on above: Performed By: #### C P, CDP #### [facility] [address] [place] [address] Product Ambassador: Clark Mata MD GFR/1.73 sq M.predicted among non-blacks MDRD (S/P/Bld) [Vol rate/Area] mL/min/{1.73_m2} Normal >60 [facility] Comment on above: Result Comment: These [...] Performed By: #### C P, CDP #### [address] [place] [address] Product Ambassador: Clark Mata MD Glucose [Mass/Vol] 75 mg/dL Normal 74-99 [facility] Comment on above: Performed By: #### C P, CDP #### [address] [place] [address] Product Ambassador: Clark Mata MD Potassium [Moles/Vol] 4.0 mmol/L Normal 3.7-5.3 [facility] Comment on above: Performed By: #### C P, CDP #### [address] [place] [address] Product Ambassador: Clark Mata MD Protein [Mass/Vol] 6.2 g/dL Low 6.6-8.7 [facility] Comment on above: Performed By: #### C P, CDP #### [facility] [address] [place] [address] [place] [address] Product Ambassador: Clark Mata MD Sodium [Moles/Vol] 134 mmol/L Low 136-145 [facility] Comment on above: Performed By: #### C P, CDP #### [facility] [address] [place] [address] [place] [address] Product Ambassador: Clark Mata MD Urea nitrogen [Mass/Vol] 10 mg/dL Normal 6-20 [facility] Comment on above: Performed By: #### C P, CDP #### [facility] [address] [place], [place] [id number] Product Ambassador: Clark Mata MD Lipaseon 7 Lipase [Catalytic activity/Vol] 41 U/L Normal 13-60 [facility] Comment on above: Performed By: #### L IP #### [facility] [address] [place], [place] [id number] Product Ambassador: Clark Mata MD UA w/Reflex Cultureon Bilirubin, SemiQt,Ur Negative Normal NEG [facility] Comment on above: Performed By: #### U AX, UMICAO #### [facility] [address] [place] [address] [place], [place] [phone] Product Ambassador: Clark Mata MD Blood, Urine Negative Normal NEG [facility] Comment on above: Performed By: #### U AX, UMICAO #### [address] [place], [place] [phone] Product Ambassador: Clark Mata MD Clarity (U) Clear Normal CLEAR [facility] Comment on above: Performed By: #### U AX, UMICAO #### [facility] [address] [place], [place] [phone] Product Ambassador: Clark Mata MD Color (U) Yellow Normal YEL [facility] Comment on above: Performed By: #### U AX, UMICAO #### [facility] [address] [place], [place] [phone] Product Ambassador: Clark Mata MD Glucose Ql (U) Negative Normal NEG [facility] Comment on above: Performed By: #### U AX, UMICAO #### [facility] [address] [place], [place] [id number] Product Ambassador: Clark Mata MD Ketones Ql (U) Negative Normal NEG [facility] Comment on above: Performed By: #### U AX, UMICAO #### [facility] [address] [place], [place] [phone] Product Ambassador: Clark Mata MD Leukocyte esterase Test strip Ql (U) Negative Normal NEG [facility] Comment on above: Performed By: #### U AX, UMICAO #### [facility] [address] [place] [address] [place], [place] [id number] Product Ambassador: Clark Mata MD Nitrite,Ur Negative Normal NEG [facility] Comment on above: Performed By: #### U AX, UMICAO #### [address] [place], [place] [phone] Product Ambassador: Clark Mata MD PH,Ur 7.0 Normal 5.0-9.0 [facility] Comment on above: Performed By: #### U AX, UMICAO #### [facility] [address] [place] [address] [place] [address] Product Ambassador: Clark Mata MD Protein Ql (U) Negative Normal NEG [facility] Comment on above: Performed By: #### U AX, UMICAO #### [facility] [address] [place] [address] [place], [place] [id number] Product Ambassador: Clark Mata MD Spec. Concan,Ur 1.015 Normal 1.010-1.020 [facility] Comment on above: Performed By: #### U AX, UMICAO #### [facility] [address] [place] [address] [place], [place] [phone] Product Ambassador: Clark Mata MD Urobilinogen,Ur Normal Normal 0.0-1.0 [facility] Comment on above: Performed By: #### U AX, UMICAO #### [facility] [address] [place] [address] Product Ambassador: Clark Mata MD US GALLBLADDER RUQon 024 [...] Sabi Leung MD 12/09/23 Final result Normal [facility] Urinalysis,Microon 4 Epithelial cells LM Ql (Urine sed) 0 TO 2 Normal 0-25 [facility] Comment on above: Performed By: #### U AX, UMICAO #### [facility] [address] [place] [address] Product Ambassador: Clark Mata MD Urine RBC's None Normal 0-2 [facility] Comment on above: Performed By: #### U AX, UMICAO #### [facility] [address] [place] [address] Product Ambassador: Clark Mata MD Urine WBC's 0 TO 2 Normal 0-5 [facility] Comment on above: Performed By: #### U AX, UMICAO #### [facility] [address] [place] [address] Product Ambassador: Clark Mata MD 36on 12-03-2023 36 Echo order faxed over [facility] 36on 12-02-2023 36 Called and left detailed message for patient [facility] 36 This will be fine Normal [facility] 36on 11-24-2023 36 Patient called stating that they [place] does not have any appointment for an echo until 32 week. She wants to know if it is okay for her to get it at 32 weeks or what else do you suggest. Please advise [facility] 36on 11-23-2023 36 I called the [facility] and I left a message on her voicemail that I would put an order in but she needs to call the [facility] scheduling line and get it scheduled in our office will fax the order to them. I asked her to schedule it for 30 weeks gestation. Please make sure that the order is faxed to [facility] scheduling. [facility] Orders Onlyon 11-23-2023 Orders Only [id number] Lisa Cardenas 1995 F Date Provider Department Center 11/23/2023 CHEPE GOODSON No family history on file [facility] 3611-21-2023 36 Pt called in stating [...] next apt with Dr. Peraza on 01/12. [facility] Telephoneon 11-21-2023 Telephone [id number] Lisa Cardenas 1995 F Date Provider Department Center 11/21/2023 CHEPE GOODSON No family history on file Reason for Visit and Comments: ECHO [Other] [facility] Office Visiton 10-07-2023 Follow-up visit [id number] Lisa Cardenas 1995 F Date Provider Department Center 10/07/2023 [id number], CHEPE RPW PED [employer] Pedia No family history on file Level of Service:18080 AL OFFICE/OUTPATIENT ESTABLISHED MOD MDM 30 MIN Reason for Visit and Comments: Heart Problem [54] - Transfer from [facility] - 18 wks [facility] CHG US SOFT TISSUE HEAD & NE CK REAL TIME IMGE DOCMon 09-23-2023 Radiology Study observation (narrative) [facility] CHG US SOFT TISSUE HEAD & NE CK REAL TIME IMGE DOCMon 09-22-2023 Andres Torres MD 09/23/2023 6:28 PM Ms. Cardenas was seen and examined with Dr. Hall, I independently verified the findings on US and agree with the documented report - thyroid ultrasound report appears in the notes tab. [facility] US Unspecified body regionOr dered By: Unassigned Pacs on 09-22-2023 [facility] Work Phone: US Unspecified body regionon 09-22-2023 Radiology Study observation (narrative) [facility] 36on 07-04-2023 36 Created in error [facility] 36 Scheduled an appointment October 06 at 8:30am. [facility] 36 If this patient schedules [...] her and left her message as well. [facility] 36on 07-03-2023 36 Patient is newly (4wks) and is currently scheduled in August for her yearly visit.. She is asking if she needs to reschedule to do the 20-24 wk gestational testing. PH: [phone] [facility] Telephoneon 07-03-2023 Telephone [id number] Joreg Peñana 1995 F Date Provider Department Center 07/03/2023 [id number] MONTALVO RPKailee PED [employer] No family history on file Normal [facility] VZ Immunityon 06-23-2023 VZ Immunity 3.84 Normal >1.09 [facility] Comment on above: Result Comment: Interpretation: IMMUNE Reference Range: <0.91 Not Immune 0.91-1.09 Equivocal >1.09 Immune Performed By: #### V ZI #### [facility] [address] [place] [address] Product Ambassador: Bear Mejias MD US THYROIDon 06-03-2023 US [...] Echogenicity: Hyperechoic or isoechoic (1 point) Shape: Zrebh-pdql-bugc (0 points) Margin: Smooth (0 points) Echogenic [...] using ACR TI-RADS. (JACR July 2016) Normal [facility] FREE T4on 05-23-2023 Free T4 [Mass/Vol] 1.0 ng/dL Normal 0.9-1.8 [facility] Comment on above: Order Comment: Locat ion: Performed By: #### L [id number], [id number] #### ANIL PRESSLEY ([id number]) [facility] ([facility]) [address], [address] [place] [address] TSHon 05-23-2023 TSH 2.599 MIU/mL Normal 0.550-4.780 [facility] Comment on above: Order Comment: Locat ion: Performed By: #### L [id number], [id number] #### ANIL PRESSLEY ([id number]) [facility] ([facility]) [address], [address] [place] [address] RF videography Hypopharynx a nd Esophagus Views [...] report for further details and dietary recommendations. [facility] Radiology Study observation (narrative) [facility] RF videography Hypopharynx a nd Esophagus Views W liquid and paste contrast PO during swallowingOrdered By: Gisele Hardy on 01-09-2023 [facility] Work Phone: XR FLUORO MODIFIED BARIUM [...] for further details and dietary recommendations. Normal [facility] CT NECK WITH CONTRASTon 10-1 CT [...] error, please notify the sender immediately at [phone] and permanently delete the original report and destroy any copies or printouts. Normal [facility] Carbide Grinder Cytology Reporton 2022 Carbide Grinder Cytology Report Clinical Information Specimen Collection Date: [...] smears in the future. 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 Patient reports some pain [...] and the last time she saw her wire coiner thought there might have been some dilation [...] send patient for preconceptual counseling with [facility] because of her cardiac abnormality Follow-up [...] intractable, w/o (more content not included)... [facility] Culture, Urineon 08-04-2020 RPT Microbiology results Abnormal [facility] Comment on above: Order Comment: Items in this order include: Culture, Urine Testing Performed By: [facility] [address] [place] [address] Dr. Anil Pressley, Product Ambassador Result Comment: [place] Count: 10,000-25,000 CFU/ML Final Result: Escherichia [...] R Performed By: #### C 734 #### [facility] [address] [place] [address] Culture, Urineon 03-14-2020 RPT Microbiology results Abnormal [facility] Comment on above: Order Comment: Items in this order include: Culture, Urine Testing Performed By: [facility] [address] [place] [address] Dr. Shaunna Cummins, Product Ambassador Result Comment: [place] Count: >100,000 CFU/ML Final Result: Escherichia [...] R Performed By: #### C 734 #### [facility] [address] [place] [address] Culture, Urineon 12-14-2019 RPT Microbiology results Abnormal [facility] Comment on above: Order Comment: Items in this order include: Culture, Urine Testing Performed By: [facility] [address] [place] [address] Dr. Shaunna Cummins, Product Ambassador Result Comment: [place] Count: 50,000-75,000 CFU/ML Final Result: Escherichia [...] R Performed By: #### C 734 #### [facility] [address] [place] [address] Vital Signs Date Time Vital Sign Value Performing Clinician Facility 02-18-2024 14:49-0500 Body mass index (BMI) [Ratio] 29.25 kg/m2 [facility] Risk [facility] 02-18-2024 14:49-0500 Body weight 77.29 kg [facility] Risk [facility] 02-18-2024 14:49-0500 Diastolic blood pressure 80 mm[Hg] [facility] Risk [facility] 02-18-2024 14:49-0500 Systolic blood pressure 132 mm[Hg] [facility] 02-13-2024 10:32-0500 Body mass index (BMI) [Ratio] 29.3 kg/m2 [facility] Risk [facility] 02-13-2024 10:32-0500 Body weight 77.43 kg [facility] Risk [facility] 02-13-2024 10:32-0500 Diastolic blood pressure 82 mm[Hg] [facility] Risk [facility] 02-13-2024 10:32-0500 Systolic blood pressure 124 mm[Hg] [facility] Risk [facility] 01-27-2024 10:23-0500 Body mass index (BMI) [Ratio] 28.58 kg/m2 [facility] Initial [facility] 01-27-2024 10:23-0500 Body weight 75.52 kg [facility] Initial [facility] 01-27-2024 10:23-0500 Diastolic blood pressure 74 mm[Hg] [facility] Initial [facility] 01-27-2024 10:23-0500 Systolic blood pressure 110 mm[Hg] [facility] Initial [facility] 01-13-2024 13:51-0500 Body height 162.6 cm Duarte Bernard MD Work Phone: [facility] 01-13-2024 13:51-0500 Body mass index (BMI) [Ratio] 28.12 kg/m2 Duarte Bernard MD Work Phone: [facility] 01-13-2024 13:51-0500 Body weight 74.3 kg Duarte Bernard MD Work Phone: [facility] 01-13-2024 13:51-0500 Diastolic blood pressure 75 mm[Hg] Duarte Bernard MD Work Phone: [facility] 01-13-2024 13:51-0500 Heart rate 79 /min Duarte Bernard MD Work Phone: [facility] 01-13-2024 13:51-0500 Systolic blood pressure 109 mm[Hg] Duarte Bernard MD Work Phone: [facility] 12-30-2023 10:58-0400 Body mass index (BMI) [Ratio] 28.12 kg/m2 Sammy Peraza DO Work Phone: [place] [address]-22-2024 10:58-0400 Body weight 74.3 kg Sammy Sut DO Work Phone: [facility] 12-30-2023 10:58-0400 Diastolic blood pressure 64 mm[Hg] Sammy Stu DO Work Phone: [facility] 12-30-2023 10:58-0400 Systolic blood pressure 100 mm[Hg] Sammy Stu DO Work Phone: [facility] 12-17-2023 10:27-0400 Body mass index (BMI) [Ratio] 27.6 kg/m2 Ella Bonnie PA Work Phone: [facility] 12-17-2023 10:27-0400 Body weight 72.94 kg Ella Bonnie PA Work Phone: [facility] 12-17-2023 10:27-0400 Diastolic blood pressure 64 mm[Hg] Ella Bonnei PA Work Phone: [facility] 12-17-2023 10:27-0400 Systolic blood pressure 100 mm[Hg] Ella Bend PA Work Phone: [facility] 09-22-2023 13:37-0400 Body height 162.6 cm Latrice Hall MD Work Phone: [facility] 09-22-2023 13:37-0400 Body mass index (BMI) [Ratio] 25.4 kg/m2 Latrice Hall MD Work Phone: [facility] 09-22-2023 13:37-0400 Body temperature 97.3 [degF] Latrice Hall MD Work Phone: [facility] 09-22-2023 13:37-0400 Body weight 67.13 kg Latrice Hall MD Work Phone: [facility] 09-22-2023 13:37-0400 Diastolic blood pressure 62 mm[Hg] Latrice Hall MD Work Phone: [facility] 09-22-2023 13:37-0400 Systolic blood pressure 114 mm[Hg] Latrice Hall MD Work Phone: [facility] 12-24-2022 16:30-0400 Body height 162.6 cm Regan Neves TOLL REPAIRER CENTRAL OFFICE-SPECIAL PROGRAMS DIRECTOR Work Phone: [facility] 12-24-2022 16:30-0400 Body mass index (BMI) [Ratio] 23.17 kg/m2 Regan Edinson TOLL REPAIRER CENTRAL OFFICE-SPECIAL PROGRAMS DIRECTOR Work Phone: [facility] 12-24-2022 16:30-0400 Body weight 61.24 kg Regan Neves TOLL REPAIRER CENTRAL OFFICE-SPECIAL PROGRAMS DIRECTOR Work Phone: [facility] 12-24-2022 16:30-0400 Diastolic blood pressure 68 mm[Hg] Regan Ellisen TOLL REPAIRER CENTRAL OFFICE-SPECIAL PROGRAMS DIRECTOR Work Phone: [facility] 12-24-2022 16:30-0400 Heart rate 71 /min Regan Neves TOLL REPAIRER CENTRAL OFFICE-SPECIAL PROGRAMS DIRECTOR Work Phone: [facility] 12-24-2022 16:30-0400 Systolic blood pressure 108 mm[Hg] Regan Ellisen TOLL REPAIRER CENTRAL OFFICE-SPECIAL PROGRAMS DIRECTOR Work Phone: [facility] 12-24-2022 11:37-0400 Body mass index (BMI) [Ratio] 23.22 kg/m2 Emile Armas MD Work Phone: [facility] 12-24-2022 11:37-0400 Body temperature 98.2 [degF] Emile Armas MD Work Phone: [facility] 12-24-2022 11:37-0400 Body weight 61.37 kg Emile Armas MD Work Phone: [facility] 12-24-2022 11:37-0400 Diastolic blood pressure 78 mm[Hg] Emile Armas MD Work Phone: [facility] 12-24-2022 11:37-0400 Heart rate 73 /min Emile Armas MD Work Phone: [facility] 12-24-2022 11:37-0400 Respiratory rate 16 /min Emile Armas MD Work Phone: [facility] 12-24-2022 11:37-0400 SaO2% (BldA) [Mass fraction] 99 % Emile Armas MD Work Phone: [facility] 12-24-2022 11:37-0400 Systolic blood pressure 123 mm[Hg] Emile Armas MD Work Phone: [facility] Encounters Encounter Date Encounter Type Care Provider Facility Start: 02-18-2024 End: 02-18-2024 Patient encounter procedure [facility] High Risk [facility] Comment on above: GA: 37w2d Start: 02-18-2024 End: 02-18-2024 ambulatory [facility] Start: 02-13-2024 End: 02-13-2024 ambulatory KORTNEY NIETO [facility] Start: 02-13-2024 End: 02-13-2024 Patient encounter procedure [facility] Comment on above: GA: 36w4d Start: 02-13-2024 End: 02-13-2024 ambulatory [facility] Start: 02-12-2024 End: 02-12-2024 ambulatory CHEPE PERAZA [facility] Start: 02-11-2024 End: 02-11-2024 Office outpatient visit 15 minutes Duarte Bernard MD Work Phone: [facility]aternal- Medicine at [facility] Comment on above: Maternal cardiovascu lar disease affecting in third trimester (Primary Dx) Start: 02-11-2024 End: 02-11-2024 ambulatory DUARTE BERNARD [facility] Start: 01-27-2024 End: 01-27-2024 Initial care visit [facility] Initial [facility] Comment on above: GA: 34w1d Start: 01-27-2024 End: 01-27-2024 ambulatory HERVE JIMENEZ [facility] Start: 01-26-2024 End: 01-26-2024 ambulatory SAMMY PERAZA Not Available Start: 01-14-2024 End: 01-14-2024 ambulatory ELLA BONNIE Not Available Start: 01-13-2024 End: 01-13-2024 Office outpatient visit 15 minutes Duarte Bernard MD Work Phone: [facility] Comment on above: Ascending aorta dila tion (CMS-HCC) (Primary Dx); 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 Start: 01-13-2024 End: 01-13-2024 ambulatory SAMMY R [facility] Start: 01-13-2024 End: 01-13-2024 ambulatory CHEPE PERAZA [facility] Start: 12-30-2023 End: 12-30-2023 Bamboo flowsheet Sammy [...] Start: 12-29-2023 End: 12-29-2023 ambulatory CHEPE Pham PERAZA [facility] Start: 12-27-2023 End: 12-27-2023 Clinisync Result [...] 12-09-2023 Emergency department patient visit [facility] Start: 11-26-2023 End: 11-26-2023 ambulatory ELLA NICOLE Not Available Start: 11-18-2023 End: 11-18-2023 ambulatory [facility] Start: 10-31-2023 End: 10-31-2023 ambulatory [facility] Start: 10-30-2023 End: 10-30-2023 ambulatory SAMMY STU Not Available Start: 10-20-2023 End: 10-20-2023 ambulatory [facility] Start: 10-07-2023 End: 10-07-2023 ambulatory [facility] Start: 09-30-2023 End: 09-30-2023 ambulatory ELLA NICOLE Not Available Start: 09-22-2023 End: 09-22-2023 Office outpatient new 45 minutes Latrice Hall MD Work Phone: Endocrinology Outpatient [facility] Comment on above: Thyroid nodule (Prim subhash Dx) Start: 09-22-2023 ambulatory LATRICE Zulay LAMARBAKARI Facilit y:[facility] Start: 09-01-2023 End: 09-01-2023 ambulatory SAMMY PERAZA Not Available Start: 07-31-2023 End: 07-31-2023 ambulatory DI PANCHAL Not Available Start: 06-20-2023 End: 06-20-2023 ambulatory DARRYN Robles [facility] Start: 06-02-2023 ambulatory HERVE Benavides ility:[facility] Start: 06-02-2023 End: 06-02-2023 Subsequent hospital visit by physician Herve Jimenez MD Work Phone: Department of Radiology Comment on above: Arrived Start: 05-27-2023 End: 05-27-2023 ambulatory DI TSEANS Not Available Start: 05-23-2023 End: 05-23-2023 ambulatory HERVE JIMENEZ [facility] Start: 01-09-2023 End: 01-09-2023 Subsequent hospital visit by physician Emile Armas MD Work Phone: Department of Radiology Comment on above: Arrived Start: 01-09-2023 ambulatory HERVE Benavides ility:[facility] Start: 12-24-2022 End: 12-24-2022 Subsequent hospital visit by physician Regan Neves TOLL REPAIRER CENTRAL OFFICE-SPECIAL PROGRAMS DIRECTOR Work Phone: [facility] [place] Comment on above: Arrived Start: 12-24-2022 ambulatory REGAN NEVES Facilit y:[facility] Start: 12-24-2022 End: 12-24-2022 Office outpatient new 45 minutes Emile Armas MD Work Phone: Department of Otolaryngology Comment on above: Lymphadenopathy (Alicia ramin Dx) Start: 12-24-2022 ambulatory SELF SELF Facility:[facility] Start: 11-20-2022 End: 11-20-2022 Office consultation new/estab patient 60 min Belle Jose DO Work Phone: Maternal Medicine [facility] [place] Comment on above: Encounter for precon ception consultation (Primary Dx); Bicuspid aortic valve Start: 11-20-2022 ambulatory HERVE JIMENEZ Fac ility:[facility] Start: 08-15-2022 End: 08-15-2022 Subsequent hospital visit by physician Chepe Peraza MD Work Phone: Cardiovascular Imaging Lab [facility] Comment on above: Canceled (Cancel Ligia son Not Listed - Please provide detailed information) Start: 05-21-2022 End: 05-22-2022 ambulatory Jake Foster MD Facility:[facility] Start: 06-05-2021 End: 06-05-2021 Postop follow up visit related to original px Charlotte Cárdenas MD Work Phone: [facility] [place] Comment on above: Postop check (Primar y Dx) Start: 03-18-2018 End: 03-18-2018 Patient encounter procedure Darryn Kennedy Work Phone: [facility] Comment on above: Other fatigue; Lymph adenopathy of head and neck Procedures Date Procedure Procedure Detail Performing Clinician Start: 12-30-2023 Urnls dip stick/tabl et rgnt non-auto w/o micrscp Sammy Stu DO Work Phone: Start: 12-27-2023 [facility] UA (CLEAN/CATCH) SPONGE BUFFER/MICRO IF IND. Sammy Stu DO Work Phone: [...] esop hagus single contrast study Regan Neves TOLL REPAIRER CENTRAL OFFICE-SPECIAL PROGRAMS DIRECTOR Work Phone: Plan of Treatment Date Care Activity Detail Author Start: 01-07-2034 DTaP,Tdap and Td Vaccines (6 - Td or Tdap) DTaP,Tdap and Td Vaccines (6 - Td or Tdap) [facility] Start: 09-29-2026 Screening for malign ant neoplasm of cervix Pap Smear [facility] Start: 02-17-2025 Adult BMI Screening Adult BMI Screen ing [facility] Start: 02-17-2025 Tobacco Screening Tobacco Screening [facility] Start: 02-11-2025 Adult BMI Screening Adult BMI Screen ing [facility] Start: 01-26-2025 Adult BMI Screening Adult BMI Screen ing [facility] Start: 01-12-2025 Adult BMI Screening Adult BMI Screen ing [facility] Start: 01-12-2025 Tobacco Screening Tobacco Screening [facility] Start: 05-28-2024 End: 05-28-2024 Patient encounter procedure 05/28/2024 10:40 AM EDT Office Visit [facility] [address] [place] [address] Di P[place]al, [place] [address] [place] [address] [facility] Start: 02-26-2024 End: 02-26-2024 Patient encounter procedure 02/26/2024 3:00 PM EST Routine [facility] [address] [place] [phone] [facility] Start: 02-13-2024 End: 02-13-2024 Patient encounter procedure [facility] Start: 02-12-2024 End: 02-12-2024 Patient encounter procedure 02/12/2024 2:00 PM EST Appointment Jodie Johnston [place] [facility] [address] [place] [address] Jodei [facility] Start: 02-11-2024 End: 02-11-2024 Telemedicine consultation with patient 02/11/2024 8:00 AM EST Telemedicine [facility] [address] [place] [phone] Duarte Bernard MD [address] [place] [address] [facility] Start: 01-27-2024 End: 01-27-2024 ambulatory 01/27/2024 10:30 AM EST Initial [facility] [address] [place] [phone] [facility] Start: 01-26-2024 End: 04-27-2024 US MFM with or without consult US MFM with or without consult Imaging Routine Bicuspid aortic valve Congenital heart disease Ascending aorta dilation ([facility]-HCC) Maternal cardiovascular disease affecting in third trimester Expected: 01/26/2024, Expires: 04/27/2024 [facility] Work Phone: Comment on above: Expected: 01/26/2024 , Expires: 04/27/2024 Start: 01-14-2024 End: 01-14-2024 Patient encounter procedure 01/14/2024 10:30 AM EST Routine [facility] [address] [place] [address] Ella Nicole PA [address] [place] [address] [facility] Start: 12-30-2023 End: 12-29-2024 US biophysical profile w non stress test US biophysical profile w non stress test Imaging Routine Aortic stenosis of mother during Hypothyroid in , antepartum (CMS/HCC) Expected: 12/30/2023 (Approximate), Expires: 12/29/2024 [facility] [...] AM EDT Routine [facility] [address] [place] [address] Sammy Peraza DO [address] Jake Pearce, [id number] Start: 12-17-2023 End: 12-17-2023 Patient encounter procedure 12/17/2023 10:20 AM EDT Routine [facility] [address] [place] [address] Ella Nicole, PA [address] [place] [address] Arrived [facility] Comment on above: Arrived Start: 11-09-2023 Influenza vaccination O [facility] Start: 06-03-2023 ambulatory Ambulatory Facility:[facility] Villanue[facility] Start: 01-09-2023 End: 01-09-2023 ambulatory 01/09/2023 8:30 AM EDT Rehab Services Visit [facility] [address] [place] [address] [facility] Start: 01-09-2023 End: 01-09-2023 Patient encounter procedure 01/09/2023 8:30 AM EDT Appointment Department of Radiology [address] [place] [phone] Department of Radiology Start: 12-24-2022 End: 12-25-2023 CT Neck W contrast IV [facility] Comment on above: Expected: 12/24/2022 , Expires: 12/25/2023 1 Occurrences starti ng 12/24/2022 until 12/24/2022 Start: 12-24-2022 End: 12-25-2023 RF videography Hypopharynx and Esophagus Views W liquid and paste contrast PO during swallowing XR FLUORO MODIFIED BARIUM SWALLOW-ENT ONLY Imaging Routine Lymphadenopathy Expected: 12/24/2022, Expires: 12/25/2023 [facility] Comment on above: Expected: 12/24/2022 , Expires: 12/25/2023 Start: 11-08-2022 COVID-19 VACCINE ( season) COVID-19 VACCINE ( season) [facility] Start: 11-08-2022 Influenza vaccination O [facility] Start: 11-08-2020 Influenza vaccination INFLUENZA VACC INE (#1) [facility] Start: 03-27-2018 End: 03-27-2018 Ambulatory 03/27/2018 Appointment Ultrasound Darryn Kennedy, SPECIAL PROGRAMS DIRECTOR [address] [address] Department of Radiology Start: 03-18-2018 End: 03-18-2019 US scan of neck US NECK SOFT TISSUE Routine Other fatigue Lymphadenopathy of head and neck Expected: 03/18/2018, Expires: 03/18/2019 [facility] Work Phone: Comment on above: Expected: 03/18/2018 , Expires: 03/18/2019 Start: 11-08-2017 Influenza vaccination INFLUENZA VACC INE (#1) [facility] Work Phone: Start: 2015 Screening for malign ant neoplasm of cervix [facility] Start: 2013 Hepatitis B vaccination HEP B VACCINE (1 of 3 - 19+ 3-dose series) [facility] Start: 2013 Third diphtheria, tetanus and acellular pertussis (DTaP) vaccination TDAP (ADULT) [facility] Start: 02-04-2012 Adult BMI Follow Up Plan Adult BMI F ollow Up Plan [facility] Start: 02-04-2012 GONORRHEA SCREEN GONORRHEA SCREEN [facility] Work Phone: Start: 02-04-2012 Tetanus vaccination TETANUS [facility] Start: 2010 Screening for Chlamy kyle trachomatis CHLAMYDIA SCREEN [facility] Work Phone: Start: 2009 HIV screening HIV SCREENING DISCUSSI ON [facility] Start: 2007 HIV screening HIV SCREENING DISCUSSI ON [facility] Work Phone: Start: 2006 Depression Screening Depression Scre [facility] Start: 03-13-2005 Tetanus vaccination TETANUS [facility] Start: 2005 Vaccination for jelly n papillomavirus HPV VACCINE ADOL (1 - Female 3-dose series) [facility] Work Phone: Start: 02-04-2000 PNEUMOCOCCAL VACCINE SERIES (1 of 2 - PCV) PNEUMOCOCCAL VACCINE SERIES (1 of 2 - PCV) [facility] Start: 1999 COVID-19 VACCINE (1) COVID-19 VACCIN E (1) [facility] Start: 1994 COVID-19 VACCINE (#1) COVID-19 VACCI NE (#1) [facility] Start: 1994 Hepatitis C antibody , confirmatory test HEPATITIS C VIRUS SCREENING [facility] Start: 1994 Hepatitis C screening HEPATITI S C VIRUS SCREENING [facility] CHLAMYDIA TRACHOMATI S (GENITO/STI) CHLAMYDIA TRACHOMATIS (GENITO/STI) Lab Routine Vaginal discharge during in second trimester Ordered: 12/30/2023 [facility] Comment on above: Ordered: 12/30/2023 End: 05-25-2024 nonstress test - Maternal Medicine nonstress test - Maternal Medicine OB Routine Bicuspid aortic valve Congenital heart disease Ascending aorta dilation ([facility]) Maternal cardiovascular disease affecting in third trimester Per Treatment Plan for 6 Occurrences starting 01/26/2024 until 05/25/2024 [facility] Comment on above: Per Treatment Plan f or 6 Occurrences starting 01/26/2024 until 05/25/2024 Laryngoscopy flexibl e diagnostic AL LARYNGOSCOPY FLEXIBLE DIAGNOSTIC AL Charge Routine Lymphadenopathy Ordered: 12/24/2022 [facility] Comment on above: Ordered: 12/24/2022 Neisseria gonorrhoea e DNA [Presence] in Unspecified specimen by VANESSA with probe detection Neisseria gonorrhea DNA probe, direct Lab Routine Vaginal discharge during in second trimester Ordered: 12/30/2023 [facility] Comment on above: Ordered: 12/30/2023 SURESWAB(R) ADVANCED VAGINITIS PLUS, TMA SURESWAB(R) ADVANCED VAGINITIS PLUS, TMA Pathology and Cytology Routine Vaginal discharge during in second trimester Ordered: 12/30/2023 [facility] Comment on above: Ordered: 12/30/2023 End: 06-02-2023 US Thyroid gland [facility] Work Phone: Comment on above: 1 Occurrences starti ng 06/02/2023 until 06/02/2023 Immunizations Immunization Date Immunization Notes Care Provider Fa [facility] 01-08-2024 tetanus toxoid, redu allison diphtheria toxoid, and acellular pertussis vaccine, adsorbed Chs Risk [facility] 12-25-2022 influenza, injectabl e, quadrivalent, preservative free Chs Risk [facility] 12-25-2022 influenza virus vaccine, unspecified formulation Latrice Hall MD Work Phone: [facility] 01-08-2016 influenza, injectabl e, quadrivalent, preservative free Chs Risk [facility] 01-08-2016 influenza virus vaccine, unspecified formulation Charlotte Cárdenas MD Work Phone: [facility] 01-02-2015 influenza, seasonal, injectable, preservative free [facility]s Risk [facility] 12-19-2013 influenza, seasonal, injectable, preservative free [facility] 03-13-1995 DTP-Haemophilus influenzae type b conjugate vaccine [facility] 02-06-1995 measles, mumps and rubella virus vaccine Chs Risk [facility] 1994 DTP-Haemophilus influenzae type b conjugate vaccine Chs Risk [facility] 1994 trivalent poliovirus vaccine, live, oral Chs Risk [facility] 1994 DTP-Haemophilus influenzae type b conjugate vaccine Chs Risk [facility] 1994 trivalent poliovirus vaccine, live, oral Chs Risk [facility] 1994 DTP-Haemophilus influenzae type b conjugate vaccine Chs Risk [facility] 1994 trivalent poliovirus vaccine, live, oral Chs Risk [facility] 1994 haemophilus influenz ae type b vaccine, conjugate unspecified formulation Chs Risk [facility] 1994 haemophilus influenz ae type b vaccine, conjugate unspecified formulation [facility] Risk [facility] Payers Date Payer Category Payer Unknown [id number] 2023 Commercial Managed C are - POS [id number] 2023 Managed Care HMO (unspecified) [id number] 2023 Private Health Insurance AETBEBA ALEGRE [id number] 2023-Present [address] [place] [address] [id number] 2023 Private Health Insurance [id number] 2021 Unknown [id number] 2020 Unknown [id number] [id number] .7.3.774432.315 2020 Unknown [id number] 1994 Unknown [id number] 2.16.840.1.232742.3.579.2 .196 1994 Unknown [id number] 2.16.840.1.923871.3.579.2 .196 1994 Unknown [id number] 2.16.840.1.042323.3.579.2 .196 1994 Unknown [id number] 2.16.840.1.947730.3.579.2 .1260 1994 Unknown [id number] 2.16.840.1.231185.3.579.2 .594 1994 Unknown [id number] 2.16.840.1.686010.3.579.2 .594 1994 Unknown [id number] 2.16.840.1.414832.3.579.2 .594 1994 Unknown [id number] 2.16.840.1.121905.3.579.2 .594 1994 Unknown [id number] 2.16.840.1.127589.3.579.2 .594 1994 Unknown [id number] 2.16.840.1.104247.3.579.2 .594 1994 Unknown [id number] 2.16.840.1.631965.3.579.2 .594 1994 Unknown [id number] 2.16.840.1.490756.3.579.2 .594 1994 Unknown [id number] 2.16.840.1.691327.3.579.2 .173 1994 Unknown [id number] 2.16.840.1.972653.3.579.2 .173 1994 Unknown [id number] 2.16.840.1.417914.3.579.2 .1259 1994 Unknown [id number] 2.16.840.1.074232.3.579.2 .1259 1994 Unknown [id number] 2.16.840.1.443449.3.579.2 .1258 1994 Unknown [id number] 2.16.840.1.378146.3.579.2 .1258 1994 Unknown [id number] 2.16840.1.468381.3.579.2 .1258 1994 Unknown [id number] 2.16.840.1.445332.3.579.2 .1258 1994 Unknown [id number] 2.16840.1.889157.3.579.2 .1258 1994 Unknown [id number] 2.16840.1.374310.3.579.2 .1258 1994 Unknown [id number] 2.840.1.774964.3.579.2 .1258 1994 Unknown [id number] 2.16840.1.316974.3.579.2 .1258 1994 Unknown [id number] 2.16840.1.225669.3.579.2 .1285 1994 Unknown [id number] 2.16840.1.506649.3.579.2 .1285 1994 Unknown [id number] 2.840.1.866922.3.579.2 .1285 1994 Unknown [id number] 2.16840.1.483196.3.579.2 .128 1994 Unknown [id number] 2.16840.1.907398.3.579.2 .1285 1994 Unknown [id number] 2.16840.1.688582.3.579.2 .1285 1994 Unknown [id number] 2.16840.1.325228.3.579.2 .1285 1994 Unknown [id number] 2.16840.1.180555.3.579.2 .1286 1994 Unknown [id number] 2.16.840.1.746830.3.579.2 .1286 1994 Unknown [id number] 2.16.840.1.476677.3.579.2 .1286 1994 Unknown [id number] 2.16.840.1.928594.3.579.2 .128 1994 Unknown [id number] 2.16.840.1.129867.3.579.2 .1286 1994 Unknown [id number] 2.16.840.1.215580.3.579.2 .128 1994 Unknown [id number] 2.16.840.1.632001.3.579.2 .128 1994 Unknown [id number] 2.16.840.1.635078.3.579.2 .1286 Social History Date Type Detail Facility Tobacco smoking stat us NHIS Unknown if ever smoked [facility] Work Phone: Start: 1994 Sex Assigned At Not on file [facility] Work Phone: Start: 04-21-2018 End: 09-09-2023 Tobacco smoking status NHIS Never smoked tobacco [facility] Start: 04-21-2018 End: 09-09-2023 Tobacco use and exposure Smokeless tobacco non-user [facility] Start: 06-05-2021 End: 09-22-2023 Alcohol intake Current drinker of alcohol (finding) [facility] Start: 04-15-2020 History SDOH Alcohol Frequency 2 [facility] Start: 04-15-2020 History SDOH Alcohol Std Drinks 1 [facility] Start: 05-10-2021 History SDOH Alcohol Comment 1-2 drinks per month [facility] Start: 05-26-2021 End: 03-29-2022 Exposure to SARS-CoV-2 (event) Not sure [facility] Start: 04-15-2020 End: 04-19-2020 History of Social function [facility] Start: 04-15-2020 End: 04-19-2020 Alcohol Use Disorder Identification Test - Consumption [AUDIT-C] [facility] How often to you hav e a drink containing alcohol? Monthly or less [facility] How many standard dr inks containing alcohol do you have on a typical day? 1 or 2 [facility] How often do you hav e 6 or more drinks on 1 occasion? Never [facility] Start: 03-16-2017 Gender identity Identifies as female gender (finding) [facility] Adolescent depressio n screening assessment 0 [facility] Start: 1994 Sex assigned at Female [facility] Start: 11-26-2023 End: 02-18-2024 Alcoholic beverage intake Ex-drinker (finding) [facility] Start: 06-16-2023 [facility] Start: 06-29-2020 Alcohol Comment rarely [facility] Start: 10-11-2014 Sex Female (finding) [facility] Clinical Notes 06-05-2021 to 02-18-2024 María Elena Joseph MD - 02/18/2024 2:45 PM Bobby Davidson LPN - 02/18/2024 2:45 PM Vicky Stephens RN - 02/13/2024 10:30 AM Stan Lr RN - 02/13/2024 10:30 AM EST Note Date & Type Note Facility 02-18-2024 History of Present illness Narrative [facility] High Risk Obstetrics Visit Return OB CC: Scheduled OB Visit None Problem List Active Problems Bicuspid aortic valve Ascending aorta dilation (CMS-HCC) care in third trimester - Primary Overview testing: weekly NST/DVP until delivery (see 11/[address] Crowley) Serial growth scans Transfer from [facility] Initial and 28 week labs normal. Placenta anterior 02/13/24 GBS Neg S/p TDaP Maternal cardiovascular disease affecting in third trimester Overview For assisted 2nd stage of labor. Bicuspid aortic valve with mild post dilated valvular aortic dilation in the ascending aorta 12/03/[address] Peraza Bicuspid aortic valve Trivial to mild aortic stenosis, peak instantaneous systolic pressure gradient of 16mmHg Moderate to severely dilated ascending aorta (unchanged) Mildly dilated aortic root Aortic annulus 2.72 cm Echo 01/13/24 Bicuspid aortic valve Trivial to mild aortic stenosis, peak instantaneous systolic pressure gradient of 16mmHg Moderate to severely dilated ascending aorta (AsAo: 3.88cm, Z score: 5.42) with stable size and slight improved Z score without progression. Mildly dilated aortic root Trivial aortic valve insufficiency Trivial to mild mitral valve insufficiency Normal biventricular systolic function Patient is 36 weeks and 3 days (YE 03/08/2024) Limited study performed MFM: Delivery between 39-40 weeks gestation due to distance. Assisted 2nd stage delivery due to bicuspid aortic valve and aortic root dilation. Patient has been cleared from Cardiology for vaginal delivery. Patient is having her next echocardiography this week (02/12/24). Echo stable InCase aortic root dilation gets worse, patient will be a candidate for Cardiology consult intrapartum. Good FM. Denies Bleeding, SROM, contractions Denies persistent N/V, constipation, heartburn, hematuria, dysuria Some lower back cramping from 9 pm last night to 6 am this morning + pelvic pressure. S/p NST this morning Control Method plan: Condoms Problem List reviewed and updated PMH/PSH/FH/Soc/Meds/Allergies Reviewed PE BP 132/80 Wt 77.3 kg (170 lb 6.4 oz) LMP 06/02/2023 BMI 29.25 kg/m Alert, NAD Cx 0/0/-3 medium mid Wt Readings from Last 3 Encounters: 02/13/24 77.4 kg (170 lb 11.2 oz) 02/12/24 75.3 kg (166 lb) 01/27/24 75.5 kg (166 lb 8 oz) See flowsheet Imp/Plan at 37w2d Patient Active Problem List Diagnosis Bicuspid aortic valve Palpitations Ocular migraine Dizziness Congenital heart disease Ascending aorta dilation ([facility]) care in third trimester Maternal cardiovascular disease affecting in third trimester care Labor warnings/ Movement discussed Maternal cardiovascular disease with bicuspid arotic valve and dilated ascending aorta. [facility] I For assisted 2nd stage delivery Echo completed 01/13/24 Weekly testing. Being completed at [facility] Serial growth scan Last done 02/13/24 Cardiac warning signs For delivery at 39 weeks with telemetry Seek testing for COVID and influenza if with URI symptoms and call if positive. RTC 1 weeks via HROB Note to patient: The Cures Act makes medical notes like these [...] opinion of the practitioner. Patient here for her 37w2d HROB visit Positive movement Denies LOF,bleeding States was cramping from 9pm to 6am States happening last 2 days States some pelvis pressure documented in this encounter [facility] 02-14-2024 Note JAVA SOFTWARE DEVELOPER: [facility] [address] [place] [address] PH: [phone] F: [phone] cardiology and maternal adult congenital cardiology consultation follow-up: February 14, 2024 Patient: Lisa Cardenas Date of : [...] suggestions, please don't hesitate to call me [phone], Sincerely, Chepe Peraza MD, [facility] Professor of Pediatric [facility] Chief, Pediatric Cardiology This note is dictated with the use of M*Modal.Please note that this dictation was completed with computer voice recognition software. Quite often unanticipated grammatical, syntax, homophones, and other interpretive errors are inadvertently transcribed by the computer software. Please disregard these errors. Please excuse any errors that have escaped final proofreading. [facility] 02-13-2024 History of Present illness Narrative Urine ljr-kolkaakvyb-ktuhmxbl. Pt seen today for HROB routine @ 36.4 Pt denies VB,LOF, feeling painless contractions 5x hour. Feeling nauseated today. Pt endorses +FM GBS today Declines RSV High Risk Obstetrics - Return Visit at 36w4d Patient Active Problem List Diagnosis Bicuspid aortic valve Palpitations Ocular migraine Dizziness Congenital heart disease Ascending aorta dilation ([facility]) care in third trimester Maternal cardiovascular disease [...] Dr. Crowley) Serial growth scans Transfer from [facility] Initial and 28 week labs normal. Placenta anterior US today GBS today Echo reviewed from 02/12/24- stable but will confirm stable measurements with Dr Peraza IOL- prefers to wait until 03/08/24 RTC 1w documented in this encounter [facility] 02-11-2024 History of Present illness Narrative REASON FOR TELEMEDICINE VIDEO OFFICE VISIT: Bicuspid aortic valves HISTORY OF PRESENT ILLNESS: Lisa Cardenas is a pleasant 29 y.o. G 1 P0 at 36w2d due on Estimated Date of Delivery: 03/08/24 . has been complicated with Bicuspid aortic valve with aortic root dilation due to bicuspid aortic valve. 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 Most recent echocardiography shows Most recent echocardiography [...] remnant in the patient. She has seen radiation therapy technician. No future testing or ultrasound required per Endo. 4. 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 Currently the patient has no complaints. The patient denies nausea, vomiting, abdominal pain, vaginal bleeding, SOB or chest pain. Patient Active Problem List Diagnosis Bicuspid aortic valve Palpitations Ocular migraine Dizziness Congenital heart disease Ascending aorta dilation ([facility]) care in third trimester Maternal cardiovascular disease [...] you for allowing me to participate in [facility]. If there are any questions, please do not hesitate to call me. Sincerely, DUARTE BERNARD MD Video Visit via Real-time Synchronous Audiovisual Provider Location: [facility]- [facility]ICINE AT [address] [address] Patient Location: Patient's home Patient Location Cement Loader: None Video Visit Consent Statement: I discussed [...] that there are some limitations compared to kofm-pa-kyxk evaluations. We elected to proceed. documented in this encounter [facility] 01-27-2024 History of Present illness Narrative [facility] Initial High Risk Obstetrics Visit Initial HROB Visit 34w1d Dated by: 8w5d US consistent with LMP Is transferring from other provider Records have been received/reviewed Patient Active Problem List Diagnosis Bicuspid aortic valve Palpitations Ocular migraine Dizziness Congenital heart disease Ascending aorta dilation ([facility]) Current Outpatient Medications on File Prior to [...] Social History Lives with FOB is involved. Nithin Employed: yes [employer] ICU nurses Education [...] patient Rh positive [facility] Pt reports getting on September 30, 2023. [...] candidate for vaginal delivery. Consult Dr. Peraza, wire coiner at time of delivery. Delivery between 39-40w. Telemetry in labor and 24hrs PP. 2nd stage assist with forceps or vacuum (per Dr. Crowley note). Weekly DVP weekly NST starting at 32w. Growth Q4w. Next would be in 2 weeks. Getting testing at [facility] on [facility]12: recommends passive 2nd stage delivery [...] cardiac symptoms. E. Will reach out to [facility] for 28w labs, 1hr gtt, pap results [...] and the clinical opinion of the practitioner. [facility] Initial High Risk Obstetrics Visit Initial HROB Visit CC: transfer of care 34w0d Dated by: 8 week US consistent with LMP Is transferring from other provider Records have been received/reviewed Patient Active Problem List Diagnosis Bicuspid aortic valve Palpitations Ocular migraine Dizziness Congenital heart disease Ascending aorta dilation ([facility]) Hypothyroidism affecting care in third trimester Current [...] Problem List Active Problems Ascending aorta dilation ([facility]) Relevant Orders US MFM with or without [...] discharge. Denies lower extremity swelling. Pulse-60 Urine smx-kdckbjyqnt-ewlmo. Oriented to office and contact information given. Verbalizes understanding. Declines RSV vaccine. documented in this encounter [facility] 01-13-2024 History of Present illness Narrative Headache/epigastric [...] Mild aortic dilation. HISTORY OF PRESENT ILLNESS: Green H Molyet is a pleasant 28 y.o. G 1 P0 at 32w1d due on Estimated Date of Delivery: 03/08/24 . has been complicated with 1. Maternal aortic bicuspid aortic valve with mild post dilated valvular aortic dilation in the ascending aorta. Last maternal echocardiography in 2020. 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 She has seen radiation therapy technician. No future testing or ultrasound required per Endo. 4. 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 Currently the patient has no complaints. The patient denies nausea, vomiting, abdominal pain, vaginal bleeding, SOB or chest pain. Patient Active Problem List Diagnosis Bicuspid aortic valve Palpitations Ocular migraine Dizziness Congenital heart disease Ascending aorta dilation ([facility]) ALLERGIES: Allergies Allergen Reactions Doxycycline ulercative esophagus [...] Complete transfer of care To the [facility] dental [facility] at [facility] and delivery at [facility]. 4. Consult to [facility] done today 5. Continue testing at her OB office 6. Delivery at 39 or 40 weeks gestation at [facility] 7. Stable and therefore patient is still a candidate for vaginal delivery. 8. Dr. Peraza Cardiology need to be notified and consulted formally at the time of induction of labor Thank you for allowing me to participate in Lisa Cardenas care. If there are any questions, please do not hesitate to call me. Sincerely, DUARTE BERNARD MD documented in this encounter [facility] 01-13-2024 Note Lonnie Peres [address] [facility] [address] January 13, 2024 Patient: Lisa Cardenas Date [...] on a single (more content not included)... [facility] 12-30-2023 History of Present illness Narrative Reason for Appointment: Patient ID: Lisa Cardenas is a 28 y.o. female who presents for Routine Visit Patient presents today for Return OB appointment. MEDICATIONS Current Outpatient Medications Medication Instructions [place]-3 Fatty Acids (OMEGA 3 PO) Take by [...] nursing note reviewed. Exam conducted with a generation technician present. Vitals: Estimated body mass index is [...] Sammy Peraza DO documented in this encounter [facility] 12-17-2023 History of Present illness Narrative Reason for Appointment: Patient ID: Lisa Cardenas is a 28 y.o. female who presents for Routine Visit Patient presents today for Return OB appointment. MEDICATIONS Current Outpatient Medications Medication Instructions [place]-3 Fatty Acids (OMEGA 3 PO) Oral Vit-DSS-Fe [...] Lakisha O Jhonny Hypertension Father's Brother Tucker Casey Seizures Brother [...] nursing note reviewed. Exam conducted with a generation technician present. Vitals: Estimated body mass index is [...] of: TAVIA Parsons documented in this encounter [facility] 10-07-2023 Note Lonnie Peres [address] [facility] [address] October 07, 2023 Patient: Lisa Cardenas Date [...] use. She is scheduled to fly to [place] to see her in the near future [...] Normal biventricular systoli (more content not included)... [facility] 10-07-2023 Note Outpatient echo Must use antibiotic for dental procedures May fly Passive second stage deliver in [facility] 09-22-2023 History of Present illness Narrative RFC: Patient with thyroid nodule. Most recent US showing nodule TI-RADS 3 Regan Neves, TOLL REPAIRER CENTRAL OFFICE-* HPI: Ms. Cardenas is a 28 y.o. [...] Hyperlipidemia, Hyperthyroidism, Hypogonadism male, Hypothyroidism, Liver disease, [place] (myocardial infarction), Migraine, Multinodular goiter, LADY (obstructive [...] hours as needed. lidocaine viscous-Alum & Mag Irulqqxyg-Fwyhnr-jakjtghrwjYTJGD oral mouthwash Swish and swallow 15mL by mouth every 6 hours as needed. norgestimate-ethinyl estradiol (Sprintec 28) 0.25-35 MG-MCG tablet Take 1 tablet by mouth at bedtime. nystatin 012100 UNIT/ML oral suspension Swish and swallow 10 [...] Echogenicity: Hyperechoic or isoechoic (1 point) Shape: Gowmr-rlmv-dhpe (0 points) Margin: Smooth (0 points) Echogenic [...] Fellow, Division of Endocrinology, Diabetes, and Metabolism [facility] [place] [place] [address] No follow-ups on file. Patient has verified [...] Fellow, Division of Endocrinology, Diabetes, and Metabolism [facility] [place] [place] [address] documented in this encounter [facility] 09-22-2023 Instructions Latrice Hall MD - 09/22/2023 1:30 PM EDT It was great seeing you today! Division of Endocrinology Outpatient Care [facility] Follow-up appointments: Please arrive at least [...] Any non-urgent results will be relayed via [employer] if you have signed up for this service or via a letter through the mail and/or phone call. Communication with your provider: - [facility] MyChart is highly recommended as the most [...] help perpare you for your future visits: [email or web address] --> Patient Care section. Sincerely, Latrice Hall MD Fellow, Division of Endocrinology, Diabetes, and Metabolism [facility] [place] [address] documented in this encounter [facility] 09-22-2023 Procedure note Associated Ord er(s): CHG US SOFT TISSUE HEAD & NECK REAL TIME IMGE DOCM Ms. Cardenas was seen and examined with Dr. Hall, I independently verified the findings on US and agree with the documented report - thyroid ultrasound report appears in the notes tab. [facility] 09-22-2023 Procedure note Associated Ord er(s): CHG US SOFT TISSUE HEAD & NECK REAL TIME IMGE DOCM Ms. Cardenas was seen and examined with Dr. Hall, I independently verified the findings on US and agree with the documented report - thyroid ultrasound report appears in the notes tab. documented in this encounter [facility] 12-24-2022 History of Present illness Narrative Chief Complaint: Chief Complaint Patient presents with New Patient Reports right side of neck with questionable swelling, continues to have problems with food getting stuck. Has to wash down food with liquids. HPI: Lisa Cardenas is a 27 y.o. female smoker / non-smoker who presents 12/24/22 to the [facility] for [...] N/A; Surgeon: Ramin Denney MD; Location: [facility] MAIN OR WISDOM TEETH EXTRACTION Social History [...] 1 Bottle 0 lidocaine viscous-Alum & Mag Wmypvctcf-Btwqav-oemytranatHEQAS oral mouthwash Swish and swallow 15mL by mouth every 6 hours as needed. 240 mL 0 norgestimate-ethinyl estradiol (Sprintec 28) 0.25-35 MG-MCG tablet Take 1 tablet by mouth at bedtime. nystatin 832106 UNIT/ML oral suspension Swish and swallow 10 [...] / non-smoker who presents 12/24/22 to the [facility] for [...] Laterality: Bilateral; Surgeon: Jigar Hutchins MD; Location: [facility] MAIN OR TONSILLECTOMY Bilateral 05/10/2021 Laterality: Bilateral; Surgeon: Charlotte Cárdenas MD; Location: [facility] SAME DAY SURGERY MAIN OR CHOLECYSTECTOMY ROBOTIC N/A 04/06/2019 Laterality: N/A; Surgeon: Ramin Denney MD; [facility] MA[facility] OR WISDOM TEETH EXTRACTION [...] 1 Bottle 0 lidocaine viscous-Alum & Mag Djtfylcks-Mlxxqg-dcttebuktkWIXCV oral mouthwash Swish and swallow 15mL by mouth every 6 hours as needed. 240 mL 0 norgestimate-ethinyl estradiol (Sprintec 28) 0.25-35 MG-MCG tablet Take 1 tablet by mouth at bedtime. nystatin 244410 UNIT/ML oral suspension Swish and swallow 10 [...] decision making for Ms. Cardenas with Regan Neves, TOLL REPAIRER CENTRAL OFFICE-SPECIAL PROGRAMS DIRECTOR. Details of my interview, examination findings, and medical decision-making confirmed the findings above. I have personally amended the documentation where appropriate. Doing well based on my examination. Fu/ in PRN if above tests results are not concerning. documented in this encounter [facility] 11-20-2022 History of Present illness Narrative Maternal- Medicine (High Risk Obstetrics) Consultation Indication for consultation: Congenital Bicuspid aortic valve Referring Provider: Herve Jimenez MD History Lisa Cardenas is a 27yo G0 LMP [id number] using nothing for contraception who presents for preconception consultation in the setting of hx congenital bicuspid aortic valve. Her history is also notable for a history of exercise induced asthma and thyroid nodule. She feels well today and has no complaints or concerns. She was recently seen by Dr. Peraza ([facility]) for preconception counseling on 05/21/2022 at [...] [facility]. 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 Ms. Lisa Cardenas has the following problems [...] N/A; Surgeon: Ramin Denney MD; [facility] WISDOM TEETH EXTRACTION [...] 1 Bottle 0 lidocaine viscous-Alum & Mag Cbahwwsxi-Dhmqyr-uzrzixjxzsJUYBH oral mouthwash Swish and swallow 15mL by mouth every 6 hours as needed. 240 mL 0 norgestimate-ethinyl estradiol (Sprintec 28) 0.25-35 MG-MCG tablet Take 1 tablet by mouth at bedtime. nystatin 745981 UNIT/ML oral suspension Swish and swallow 10 [...] . --. SCAN INFO ======= GENERAL SCANNER ICT QUALITY ASSURANCE ENGINEER: TBS MODEL: Apaja PULSE SEQUENCES: SSFP cine, HASTE morphology, 3D [...] aortic valve and has been followed by [facility]. The patient is currently asymptomatic from a cardiac standpoint, but is at risk for aortic dissection (especially given known ascending aortic dilation), heart failure, OK, and arrhythmias due to expected cardiovascular changes [...] as Marfan syndrome. The patient qualifies for [facility] risk classification II-III which confers an intermediate [...] and severity of complications: Recommendations during - POLYTECHNIC REGISTRAR referral for multi-disciplinary care coordination - Baseline [...] be appropriate for co-managed care with [facility] for ultrasounds and visits every trimester and that she should contact and establish care obstetrical care with [facility] general bush and vine fruit crop farmer practice once has a positive test. Thank [...] Obstetrics and Gynecology Division of Maternal Medicine [facility] documented in this encounter [facility] 06-05-2021 Instructions Charlotte Cárdenas MD - 06/05/2021 11:42 AM EDT ASSESSMENT/PLAN: Status post tonsillectomy Healing well Pathology benign Followup as needed documented in this encounter [facility] 06-05-2021 History of Present illness Narrative [...] Followup as needed documented in this encounter [facility] Evaluation note Diagnosis Postop check- Primary Follow-up examination, following unspecified surgery [facility] Diagnosis Encounter for preconception consultation- Primary Bicuspid aortic valve Congenital insufficiency of aortic valve [facility] Diagnosis Lymphadenopathy- Primary Enlargement of lymph nodes [facility] Diagnosis Lymphadenopathy Enlargement of lymph nodes [facility] Diagnosis Lymphadenopathy Enlargement of lymph nodes [facility] Diagnosis Thyroid nodule Nontoxic uninodular goiter [facility] Diagnosis Thyroid nodule- Primary Nontoxic uninodular goiter [facility] Diagnosis 28 weeks gestation of Third trimester state, incidental documented in this encounter [facility]* Diagnosis 30 weeks gestation of Third trimester state, incidental Aortic stenosis of mother during Hypothyroid in , antepartum (CMS/HCC) Vaginal discharge during in second trimester Encounter for screening for cervical length documented in this encounter [facility]* Diagnosis Ascending aorta dilation (CMS-HCC)- Primary Thoracic aneurysm without mention of rupture 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 [facility] Diagnosis Maternal cardiovascular disease affecting in third trimester- Primary Bicuspid aortic valve Congenital insufficiency of aortic valve Palpitations Congenital heart disease Unspecified congenital anomaly of heart Ascending aorta dilation (CMS-HCC) Thoracic aneurysm without mention of rupture Hypothyroidism affecting , antepartum 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 [facility] Diagnosis Maternal cardiovascular disease affecting in third trimester- Primary [facility]* Diagnosis Maternal cardiovascular disease affecting in third trimester- Primary care in third trimester [facility] Diagnosis Maternal cardiovascular disease affecting in third trimester- Primary care in third trimester Ascending aorta dilation (CMS-HCC) Thoracic aneurysm without mention of rupture Bicuspid aortic valve Congenital insufficiency of aortic valve [facility]* Attachments The following attachments cannot be sent through Care Everywhere. * [facility] S[facility] C[facility] documented in [facility] file [facility]* Attachments The following attachments cannot be sent through Care Everywhere. * Control Options ([employer]) [facility] Reason for Referral Status Reason Specialty Diagnoses / Procedures Referred By Contact Referred To Contact New Request Diagnoses Other fatigue Lymphadenopathy of head and neck Procedures US NECK SOFT TISSUE Darryn Kennedy, SPECIAL PROGRAMS DIRECTOR [address] [phone] Specialty Diagnoses / Procedures Referred By Emanuel t Referred To Contact Diagnoses Lymphadenopathy Procedures XR FLUORO MODIFIED BARIUM SWALLOW-ENT ONLY CHG RADIOLOGIC EXAM ESOPHAGUS SINGLE CONTRAST STUDY Regan Neves APRN-SPECIAL PROGRAMS DIRECTOR [address] [place] [address] Referral ID Status Reason Start Date Expiration Date V isits Requested Visits Authorized [id number] Auth Not Needed 12/24/2022 01/18/2024 1 1 Specialty Diagnoses / Procedures Referred By Contac t Referred To Contact Diagnoses Lymphadenopathy Regan Neves TOLL REPAIRER CENTRAL OFFICE-SPECIAL PROGRAMS DIRECTOR [address] [place] [address] Referral ID Status Reason Start Date Expiration Date V isits Requested Visits Authorized [id number] Pending Review 12/24/2022 01/18/2024 1 1 Specialty Diagnoses / Procedures Referred By Contac t Referred To Contact Diagnoses Lymphadenopathy Procedures CT NECK WITH CONTRAST AL CT NECK TISSUE CONTRAST Regan Neves TOLL REPAIRER CENTRAL OFFICE-SPECIAL PROGRAMS DIRECTOR [address] [place] [address] Referral ID Status Reason Start Date Expiration Date Visits Re quested Visits Authorized [id number] Closed 12/24/2022 01/18/2024 1 1 Referral ID Status Reason Start Date Expiration Date Visits Re quested Visits Authorized [id number] Closed 12/24/2022 01/18/2024 1 1 Specialty Diagnoses / Procedures Referred By Contac t Referred To Contact Diagnoses Thyroid nodule Procedures US THYROID AL US,HEAD/NECK TISSUES,REAL TIME Herve Jimenez MD [address] [place] [address] [facility] [address] [place] [address] Referral ID Status Reason Start Date Expiration Date V isits Requested Visits Authorized [id number] New Request 05/27/2023 06/20/2024 1 1 Specialty Diagnoses / Procedures Referred By Contac t Referred To Contact Diagnoses Thyroid nodule Procedures US [facility] Andres Torres MD [address] [facility] [address] [place] [address] Referral ID Status Reason Start Date Expiration Date V isits Requested Visits Authorized [id number] New Request 09/22/2023 10/16/2024 1 1 Assessments [...] section and content) DATE CREATED AUTHOR 08/07/2020 [facility] DATE CREATED AUTHOR AUTHOR'S ORGANIZ ATION 05/28/2022 [facility] DATE CREATED AUTHOR AUTHOR'S ORGANIZ ATION 05/24/2023 [facility] DATE CREATED AUTHOR AUTHOR'S ORGANIZ ATION 09/26/2023 [facility] DATE CREATED AUTHOR AUTHOR'S ORGANIZ ATION 12/17/2023 [facility] DATE CREATED AUTHOR AUTHOR'S ORGANIZ ATION 01/28/2024 [facility] EPIC DATE CREATED AUTHOR AUTHOR'S ORGANIZ ATION 02/17/2024 [facility] DATE CREATED AUTHOR AUTHOR'S ORGANIZ ATION 02/21/2024 [facility] Reason for Visit (unrecogniz ed [...] W/O FOL W/CONT, CHEST Chepe Peraza MD [address] [place] [address] [facility] [address] [place] [address] Referral ID Status Reason Start Date Expiration Date V isits Requested Visits Authorized [id number] Auth Not Needed 05/29/2022 06/23/2023 1 1 [...] MD [address] [place] [address] Referral ID Status Reason Start Date Expiration Date Visits Re quested Visits Authorized [id number] Closed 12/24/2022 01/18/2024 1 1 Specialty Diagnoses / Procedures Referred By Contac t Referred To Contact Diagnoses Lymphadenopathy Procedures CT NECK WITH CONTRAST AL CT NECK TISSUE CONTRAST Regan Neves, TOLL REPAIRER CENTRAL OFFICE-SPECIAL PROGRAMS DIRECTOR [address] [place] [address] Referral ID Status Reason Start Date Expiration Date Visits Re quested Visits Authorized [id number] Closed 12/24/2022 01/18/2024 1 1 Specialty Diagnoses / Procedures Referred By Contac t Referred To Contact Diagnoses Lymphadenopathy Procedures XR FLUORO MODIFIED BARIUM SWALLOW-ENT ONLY CHG RADIOLOGIC EXAM ESOPHAGUS SINGLE CONTRAST STUDY Regan Neves, TOLL REPAIRER CENTRAL OFFICE-SPECIAL PROGRAMS DIRECTOR [address] [place] [address] Referral ID Status Reason Start Date Expiration Date Visits Re quested Visits Authorized [id number] Closed 12/24/2022 01/18/2024 1 1 Specialty Diagnoses / Procedures Referred By Contac t Referred To Contact Diagnoses Thyroid nodule Procedures US THYROID AL US,HEAD/NECK TISSUES,REAL TIME Herve Jmienez MD [address] [place] [address] [facility] [address] [place] [address] Referral ID Status Reason Start Date Expiration Date V isits Requested Visits Authorized [id number] New Request 05/27/2023 06/20/2024 1 1 Reason Comments Thyroid Nodule Specialty Diagnoses / Procedures Referred By Contac t Referred To Contact Endocrinology, Diabetes & Metabolism Diagnoses Thyroid nodule Regan Neves, TOLL REPAIRER CENTRAL OFFICE-SPECIAL PROGRAMS DIRECTOR [address] [place] [address] Referral ID Status Reason Start Date Expiration Date V isits Requested Visits Authorized [id number] Pending Review 06/04/2023 06/28/2024 1 1 Reason Comments Routine Visit Reason Comments aortic root dilation aortic stenosis Reason Comments Routine Visit Specialty Diagnoses / Procedures Referred By Contac t Referred To Contact Obstetrics & Gynecology / Obstetrics and Gynecology Diagnoses Ascending aorta dilation (CMS-HCC) 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 Duarte Bernard MD [address] [place] [address] Phone: tel: fax: [facility] [address] [place] [address] Phone: tel: fax: Referral ID Status Reason Start Date Expiration Date Visits Requested Visits Authorized [id number] Pending Review Specialty Services Required 01/13/2024 01/12/2025 1 1 Reason Comments High Risk Gestation Reason Comments High Risk Gestation Routine Visit Care Teams (unrecognized sec tion and content) Glass Technician Relationship Specialty Start Date End Date Herve Jimenez MD [address] [place] [address] PCP - General Family Medicine 09/23/19 Chepe Peraza MD [address] [place] [address] [facility] 04/30/21 Glass Technician Relationship Specialty Start Date End Date Herve Jimenez MD [address] [place] [address] PCP - General Family Medicine 09/23/19 Chepe Peraza MD [address] [place] [address] [facility] 04/30/21 Glass Technician Relationship Specialty Start Date End Date Herve Jimenez MD [address] [place] [address] PCP - General Family Medicine 09/23/19 Chepe Peraza MD [address] [place] [address] [facility] 04/30/21 Glass Technician Relationship Specialty Start Date End Date Herve Jimenez MD [address] [place] [address] PCP - General Family Medicine 09/23/19 Chepe Peraza MD [address] [place] [address] [facility] 04/30/21 Glass Technician Relationship Specialty Start Date End Date Herve Jimenez MD [address] [place] [address] PCP - General Family Medicine 09/23/19 Chepe Peraza MD [address] [place] [address] [facility] 04/30/21 Glass Technician Relationship Specialty Start Date End Date Herve Jimenez MD [address] [place] [address] PCP - General Family Medicine 09/23/19 Chepe Peraza MD [address] [place] [address] [facility] 04/30/21 Glass Technician Relationship Specialty Start Date End Date Herve Jimenez MD [address] [place] [address] PCP - General Family Medicine 09/23/19 Chepe Peraza MD [address] [place] [address] [facility] 04/30/21 Glass Technician Relationship Specialty Start Date End Date Herve Jimenez MD [address] [place] [address] PCP - General Family Medicine 09/23/19 Chepe Peraza MD [address] [place] [address] [facility] 04/30/21 Glass Technician Relationship Specialty Start Date End Date Herve Jimenez MD [address] [place] [address] PCP - General Family Medicine 06/29/20 Glass Technician Relationship Specialty Start Date End Date Herve Jimenez MD [address] [place] [address] PCP - General Family Medicine 06/29/20 Glass Technician Relationship Specialty Start Date End Date Herve Jimenez MD [address] [place] [address] PCP - General Family Medicine 06/29/20 Glass Technician Relationship Specialty Start Date End Date Herve Jimenez MD [address] [place] [address] PCP - General Family Medicine 06/29/20 Glass Technician Relationship Specialty Start Date End Date Herve Jimenez MD [address] [place] [address] PCP - General Family Medicine 06/29/20 FOR [...] PRIMARY CLINICAL RECORDS. [facility] [employer] [facility]. provides no warranty or guarantee of the accuracy or completeness of information in this document.
[2024-02-23 10:17] VITALS: BP 121/70; PULSE 77
== END 2024-02-23 11:15 | disposition home or self-care (01) ==
LOC: FBCO 06:10 → FBC 10:01
PROVIDERS: Visit Provider Obstetrics & Gynecology
DX: O99.413 Diseases of the circulatory system complicating pregnancy, third trimester (principal); Z3A.38 38 weeks gestation of pregnancy
CPT/HCPCS: 76818

== ENCOUNTER 2024-03-04 02:55 | Outpatient (OUT) | payer OTHER, SELFPAY ==
--- NOTE | 2024-03-04 | US_ITS ---
[address] [id number] Patient Name: ADRY LEVY MRN: [id number] date: 1995 Sex: F Assigned Patient Location: [facility] Current Patient Location: Accession/Order Number: [id number] Exam Date: 03/04/2024 10:02 Report Date: 03/04/2024 23:22 At the request of: RICKY PHAM Procedure: US OB BPP w non-stress EXAMINATION: US OB BPP w non-stress HISTORY:Aortic stenosis of mother COMPARISON: Ultrasound OB biophysical 02/23/2024 TECHNIQUE: Ultrasound biophysical profile was performed in the radiology department. BREATHING MOVEMENTS: 2 GROSS BODY MOVEMENTS: 2 TONE: 2 QUALITATIVE AMNIOTIC FLUID VOLUME: 2 PRESENTATION: CEPHALIC HEART RATE: 126.76 bpm AMNIOTIC FLUID VOLUME: 15.21 cm GESTATIONAL AGE: 39 weeks 3 days US/US OB BPP w non-stress IMPRESSION: Total biophysical profile score: 8 Electronically authenticated by: JELLY TORRES Date: 03/04/2024 23:22
--- OUTSIDE RECORDS SUMMARY | 2024-03-04 03:01 | XMS_ITS | CCD ---
Author Organization [facility] Care Team Providers Care Instructor Psychiatric Aide Name Role Phone Unavailable Unavailable Unavailable Herve Jimenez MD Primary Care Provider Chepe Peraza MD Unavailable Herve Jimenez MD Primary Care Unavail able Cristian DORADO, Jake Og Attending UnavailHerve Chiang MD Primary Care Unavail swathi Foster MD, Jake Og Attending Unavailfred Foster MD, Jake Og Attending UnavailHerve Chiang MD Primary Care Unavail able Herve Jimenez MD Primary Care Provider Chepe Peraza MD Unavailable [phone] Herve Jimenez MD Primary Care Provider HERVE JIMENEZ Attending Unavailable Chepe Peraza MD Unavailable [phone] LATRICE HALL Attending Unavailable BARBARA HERVE [...] Referring Unavail able HERVE JIMENEZ Primary Care Unavailabl e HERVE JIMENEZ Referring Unavailabl e ANGEL JIMENEZIL KENYA Primary Care Unavailabl e HERVE JIMENEZ Referring Unavailabl e BARBARA, HERVE MOREJON Primary Care Unavailabl e Allergies Allergy Classification Reported Allergen(s) Allergy Type Date of Onset Reaction(s) Facility (20 sources) Amoxicillin; Translations: [amoxicillin] Drug Allergy 04-14-19 13 Rash, Unknown [facility] Work Phone: (20 sources) Clarithromycin; Translations: [clarithromycin] Drug Allergy 10-07-19 16 Rash [facility] Work Phone: (20 sources) Clindamycin; Translations: [clindamycin] Drug Allergy 03-16-19 18 [facility] Work Phone: (20 sources) Doxycycline; Translations: [doxycycline] Drug Allergy 04-14-19 13 Unknown [facility] Work Phone: (13 sources) Clarithromycin Propensity to adverse reactions to drug 10-07-19 16 Rash, Unknown [facility] Work Phone: (15 sources) Erythromycin; Translations: [ERYTHROMYCIN] Drug Allergy 04-14-19 13 [facility] (9 sources) Spironolactone; Translations: [SPIRONOLACTONE] Drug Allergy 05-27-19 24 Dizziness [facility] (7 sources) Clindamycin/Lincom ycin Drug Intolerance 07-13-19 15 Unknown [facility] (3 sources) Spironolactone Drug Allergy 09-09-19 24 [facility] (1 source) Lincomycin; Translations: [LINCOMYCIN] Drug Allergy 07-13-19 15 [facility] Repository Medications Current Medications Medication Drug [...] 0 05/22/2021 Active lidocaine viscous-Alum & Mag Iiolzclvm-Jzuixr-kascthrezpXBWRS oral mouthwash (8 sources) Start: 05-22-2021 take 15 mL by mouth every six hours as needed lidocaine viscous-Alum & Mag Tjlgswnky-Ffofom-xvtotjreuqNLVBZ oral mouthwash Swish and swallow 15mL by mouth every 6 hours as needed. 240 mL 05/22/2021 Active Start: 05-22-2021 take 15 mL by mouth every six hours as needed lidocaine viscous-Alum & Mag Feeleqbrk-Bllirk-wxevsltiktCPQJB oral mouthwash Swish and swallow 15mL by mouth every 6 hours as needed. 240 mL 0 05/22/2021 Active nystatin 875300 unt/ml oral suspension (8 sources) Polyene Antifungal Start: 05-16-2021 take 10 mL by mouth four times daily nystatin 806178 UNIT/ML oral suspension Swish and swallow 10 mL 4 times daily. 280 mL 05/16/2021 Active Vienna-3 Fatty Acids (OMEGA 3 PO) (7 sources) Vienna-3 Fatty Ac ids (OMEGA 3 PO) Take [...] 05/22/2021 Active no115/iron/folic acid ( 19 ORAL) (6 sources) no115/iron/folic acid ( 19 ORAL) Take [...] Onset: 11-20-2022 11-20-2022 Episodic Headache; including migraine (6 sources) Ophthalmic migraine; Translations: [Migraine with aura, [...] second trimester] 12-30-2023 Episodic Other complications of (20 sources) Disorder of cardiovascular system; Translations: [Diseases [...] 01-26-2024 Episodic Other and delivery including normal (13 sources) Third trimester ; Translations: [Encounter for [...] cholecystitis] Onset: 04-05-2019 04-06-2019 Episodic Cardiac dysrhythmias (10 sources) Palpitations; Translations: [Palpitations] Onset: 07-15-2017 07-15-2017 Episodic Conditions associated with dizziness or vertigo (6 sources) Dizziness; Translations: [Dizziness and giddiness] Onset: 06-29-2020 06-29-2020 Episodic Lymphadenitis (6 sources) Generalized enlarged lymph nodes; Translations: [Lymphadenopathy] Onset: 01-09-2023 12-24-2022 Episodic Mood disorders (5 sources) Mood disorders Onset: 12-24-2022 12-24-2022 Other complications of (8 sources) Hypothyroidism in ; Translations: [Endocrine, nutritional [...] Test Name Value Interpretation Reference Range Facility 36 02-14-2024 36 Sent via [employer] fax Normal [facility] 36 I called her yesterday morning and discussed this with her already so this must be an older message. Normal [facility] Documentationon 02-14-2024 Documentation [id number] Lisa Cardenas 1995 F Date Provider Department Center 02/14/2024 CHEPE GOODSON RPW PED Simon Rao No family history on file Normal [facility] 36on 02-13-2024 36 Patient stated that she completed an ECHO recently and is now 36 wks . Her SUPPLY CONTROLLER wants a note on the results and how to proceed with delivery. SUPPLY CONTROLLER: [facility] [address] [place] [address] PH: [phone] F: [phone] Normal [facility] STREP B SCREEN CULTUREon S. agalactiae Org specific cx Ql (Vag+Rectum) SPECIMEN NOTES ALLERGY TO PENICILLIN CULTURE RESULTS NEGATIVE FOR GROUP B STREPTOCOCCUS BY NUCLEIC ACID AMPLIFICATION Normal [facility] Comment on above: Performed By: #### 7 2607-5 #### [facility] ([id number]) [address], [address] [place] [address] 37on 01-13-2024 37 Echo results: Bicuspid aortic [...] not dizzy. ECHO at 36 weeks Normal [facility] Office Visiton 01-13-2024 Follow-up visit [id number] Lisa Cardenas 1995 F Date Provider Department Center 01/13/2024 HayderCHEPE HICKS RPW PED [employer] No family history on file Level of Service:99384 [place] OFFICE/OUTPATIENT ESTABLISHED MOD MDM 30 MIN Reason for Visit and Comments: Aortic Dilatation [Other] - 32 wks Normal [facility] Orders Onlyon 01-13-2024 Orders Only [id number] Lisa Cardenas 1995 F Date Provider Department Center 01/13/2024 RAMIRO VOGEL RPW PED [employer] No family history on file Normal [facility] Urinalysis macro (dipstick) panel (U)on 12-30-2023 Bilirubin, UA Negative Negative - 4(70) +++ mg/dL [facility] Blood, UA Negative Negative - 50 Sina/mcL [facility] Healthcare Clarity, UA Clear [facility] Color, UA Yellow [facility] Glucose, UA Negative Negative - 1999(110) ++++ mg/dL [facility] Interpretation and review of laboratory results Normal [facility] Ketones, UA Negative Negative - 160(16) ++++ mg/dL [facility] Leukocytes, UA Negative Negative - 500+++ Amos/mcL [facility] Nitrite, UA Negative Negative - Positive [facility] pH, UA 6.5 5 - 9 [facility] Protein, UA Negative Negative - 1999(20) ++++ mg/dL [facility] Healthcare Spec Grav, UA 1.015 1 - 1.03 [facility] Urobilinogen, UA 0.2 0.2 - 12 mg/dL [facility] TBH UA (CLEAN/CATCH) SOLUTION DESIGNER/GIUSEPPE RO IF IND.on 12-27-2023 BILIRUBIN URINE Negative NEGATIVE [facility] BLOOD URINE Negative NEGATIVE [facility] Clarity (U) CLEAR CLEAR [facility] Color (U) LT. YELLOW YELLOW [facility] GLUCOSE URINE UA Negative NEGATIVE mg/dL [facility] Interpretation and review of laboratory results Abnormal [facility] Ketones Ql (U) TRACE Abnormal NEGATIVE mg/dL [facility] Leukocyte esterase Test strip Ql (U) Negative NEGATIVE [facility] NITRITE URINE Negative NEGATIVE [facility] pH (U) 7.0 [pH] 5.0 - 9.0 [facility] PROTEIN URINE Negative NEG/TRACE mg/dL [facility] SPECIFIC GRAVITY URINE <=1.005 Abnormal 1.005 - 1.025 [facility] URINE MICROSCOPIC INDICATED NO [facility] UROBILINOGEN URINE 0.2 EU/dL 0.2 - 1.0 EU/dL [facility] Urinalysis macro (dipstick) panel (U)on 12-17-2023 Bilirubin, UA Negative Negative - 4(70) +++ mg/dL [facility] Blood, UA Negative Negative - 50 Sina/mcL [facility] Clarity, UA Clear [facility] re Color, UA Yellow [facility] Glucose, UA Negative Negative - 1999(110) ++++ mg/dL [facility] Interpretation and review of laboratory results Abnormal [facility] Ketones, UA Negative Negative - 160(16) ++++ mg/dL [facility] Leukocytes, UA Trace Negative - 500+++ Amos/mcL [facility] Nitrite, UA Negative Negative - Positive [facility] pH, UA 7.5 5 - 9 [facility] Protein, UA Negative Negative - 1999(20) ++++ mg/dL [facility] Spec Grav, UA 1.020 1 - 1.03 [facility] Urobilinogen, UA 0.2 0.2 - 12 mg/dL [facility] CBC with Diffon 12-09-2023 Abs. Basophil 0.09 k/uL Normal 0.00-0.20 [facility] Comment on above: Performed By: #### C P, CDP #### [facility] [address] [place] [address] Looseleaf Binder Coverer: Clark Mata MD Abs.Imm.Granulocyte 0.17 k/uL Normal 0.00-0.30 [facility] Comment on above: Performed By: #### C P, CDP #### [facility] [address] [place] [address] [employer]oseleaf Binder Coverer: Clark Mata MD Abs.Neutrophil (Seg) 5.63 k/uL Normal 1.50-8.10 [facility] Comment on above: Performed By: #### C P, CDP #### [facility] [address] [place] [address] [place], [facility] [employer]ose[employer] Binder Coverer: Clark Mata MD Basophils/100 WBC (Bld) 1 % Normal 0-2 [facility] Comment on above: Performed By: #### C P, CDP #### [address] [place], [facility] [employer]ose[employer] Binder Coverer: Clark Mata MD Eosinophils (Bld) [#/Vol] 0.13 10*3/uL Normal 0.00-0.44 [facility] Comment on above: Performed By: #### C P, CDP #### [address] [place], [facility] [employer] Binder Coverer: Clark Mata MD Eosinophils/100 WBC (Bld) 2 % Normal 1-4 [facility] Comment on above: Performed By: #### C P, CDP #### [address] [place], [facility] [employer]ose[employer] Binder Coverer: Clark Mata MD Erythrocyte distribution width (RBC) [Ratio] 12.7 % Normal 11.8-14.4 [facility] Comment on above: Performed By: #### C P, CDP #### [address] [place], [facility] Looseleaf Binder Coverer: Clark Mata MD Hematocrit (Bld) [Volume fraction] 36.4 % Normal 36.3-47.1 [facility] Comment on above: Performed By: #### C P, CDP #### [address] [place], [facility] [employer]ose[employer] Binder Coverer: Clark Mata MD Hemoglobin (Bld) [Mass/Vol] 12.6 g/dL Normal 11.9-15.1 [facility] Comment on above: Performed By: #### C P, CDP #### [address] [place] [id number] [employer]oseleaf Binder Coverer: Clark Mata MD Immature granulocytes/100 WBC (Bld) 2 % High 0 [facility] Comment on above: Performed By: #### C P, CDP #### [facility] [address] [place], [place] [address] [employer] Binder Coverer: Clark Mata MD Lymphocytes (Bld) [#/Vol] 1.80 10*3/uL Normal 1.10-3.70 [facility] Comment on above: Performed By: #### C P, CDP #### [facility] [address] [place], [place] 9[address] [employer]oseleaf Binder Coverer: Clark Mata MD Lymphocytes/100 WBC (Bld) 21 % Low 24-43 [facility] Comment on above: Performed By: #### C P, CDP #### [address] [place], [facility] [employer] Binder Coverer: Clark Mata MD MCH (RBC) [Entitic mass] 30.4 pg Normal 25.2-33.5 [facility] Comment on above: Performed By: #### C P, CDP #### [address] [place], [place] [id number] [employer]oseleaf Binder Coverer: Clark Mata MD MCHC (RBC) [Mass/Vol] 34.6 g/dL Normal 28.4-34.8 [facility] Comment on above: Performed By: #### C P, CDP #### [facility] [address] [place] [address] [place], [place] [address]83 [employer]oseleaf Binder Coverer: Clark Mata MD MCV (RBC) [Entitic vol] 87.9 fL Normal 82.6-102.9 [facility] Comment on above: Performed By: #### C P, CDP #### [facility] [address] [place] [address] Looseleaf Binder Coverer: Clark Mata MD Monocytes (Bld) [#/Vol] 0.61 10*3/uL Normal 0.10-1.20 [facility] Comment on above: Performed By: #### C P, CDP #### [facility] [address] [place], [place] [address]83 [employer]oseleaf Binder Coverer: Clark Mata MD Monocytes/100 WBC (Bld) 7 % Normal 3-12 [facility] Comment on above: Performed By: #### C P, CDP #### [facility] [address] [place], [place] [address]83 [employer]oseleaf Binder Coverer: Clark Mata MD Neutrophil (Seg) 67 % High 36-65 [facility] Comment on above: Performed By: #### C P, CDP #### [facility] [address] [place], [place] 3922383 Looseleaf Binder Coverer: Clark Mata MD NRBC Automated 0.0 per 100 WBC Normal 0.0 [facility] Comment on above: Performed By: #### C P, CDP #### [facility] [address] [place], [place] [address] Looseleaf Binder Coverer: Clark Mata MD Platelet mean volume (Bld) [Entitic vol] 10.7 fL Normal 8.1-13.5 [facility] Comment on above: Performed By: #### C P, CDP #### [facility] [address] [place] [address] Looseleaf Binder Coverer: Clark Mata MD Platelets (Bld) [#/Vol] 162 10*3/uL Normal 138-453 [facility] Comment on above: Performed By: #### C P, CDP #### [facility] [address] [place] [address] Looseleaf Binder Coverer: Clark Mata MD RBC (Bld) [#/Vol] 4.14 10*6/uL Normal 3.95-5.11 [facility] Comment on above: Performed By: #### C P, CDP #### [facility] [address] [place], [place] 47[address]783 Looseleaf Binder Coverer: Clark Mata MD WBC (Bld) [#/Vol] 8.4 10*3/uL Normal 3.5-11.3 [facility] Comment on above: Performed By: #### C P, CDP #### [facility] [address] [place], [place] 3065[address] Looseleaf Binder Coverer: Clark Mata MD Comp Metabolic Profon 2023 Albumin [Mass/Vol] 3.7 g/dL Normal 3.5-5.2 [facility] Comment on above: Performed By: #### C P, CDP #### [facility] [address] [place], [place] 5457683 Looseleaf Binder Coverer: Clark Maat MD Albumin/Glob Ratio 1.4 Normal 1.0-2.5 [facility] Comment on above: Performed By: #### C P, CDP #### [facility] [address] [place], [place] [address]208183 Looseleaf Binder Coverer: Clark Mata MD Alkaline Phos 47 U/L Normal 35-104 [facility] Comment on above: Performed By: #### C P, CDP #### [facility] [address] [place], [place] 1478483 Looseleaf Binder Coverer: Clark Mata MD ALT [Catalytic activity/Vol] 13 U/L Normal 10-35 [facility] Comment on above: Performed By: #### C P, CDP #### [facility] [address] [place], [place] [address]354883 Looseleaf Binder Coverer: Clark Mata MD Anion gap [Moles/Vol] 9 mmol/L Normal 9-16 [facility] Comment on above: Performed By: #### C P, CDP #### [facility] [address] [place], [place] [address]683 Looseleaf Binder Coverer: Clark Mata MD AST [Catalytic activity/Vol] 16 U/L Normal 10-35 [facility] Comment on above: Performed By: #### C P, CDP #### [facility] [address] [place] [address] Looseleaf Binder Coverer: Clark Mata MD Bilirubin [Mass/Vol] 0.3 mg/dL Normal 0.00-1.20 [facility] Comment on above: Performed By: #### C P, CDP #### [facility] [address] [place] [address] Looseleaf Binder Coverer: Clark Mata MD BUN/CRE Ratio 17 Normal 9-20 [facility] Comment on above: Performed By: #### C P, CDP #### [facility] [address] [place] [address] Looseleaf Binder Coverer: Clark Mata MD Calcium [Mass/Vol] 8.7 mg/dL Normal 8.6-10.4 [facility] Comment on above: Performed By: #### C P, CDP #### [facility] [address] [place], [place] 5232383 Looseleaf Binder Coverer: Clark Mata MD Chloride [Moles/Vol] 104 mmol/L Normal 98-107 [facility] Comment on above: Performed By: #### C P, CDP #### [facility] [address] [place], [place] [address]83 Looseleaf Binder Coverer: Clark Mata MD CO2 [Moles/Vol] 21 mmol/L Normal 20-31 [facility] Comment on above: Performed By: #### C P, CDP #### [facility] [address] [place] [address] Looseleaf Binder Coverer: Clark Mata MD Creatinine [Mass/Vol] 0.6 mg/dL Normal 0.50-0.90 [facility] Comment on above: Performed By: #### C P, CDP #### [facility] [address] [place] [address] Looseleaf Binder Coverer: Clark Mata MD GFR/1.73 sq M.predicted among non-blacks MDRD (S/P/Bld) [Vol rate/Area] mL/min/{1.73_m2} Normal >60 [facility] Comment on above: Result Comment: These results [...] Performed By: #### C P, CDP #### [facility] [address] [place] [address] [place] [address] Looseleaf Binder Coverer: Clark Mata MD Glucose [Mass/Vol] 75 mg/dL Normal 74-99 [facility] Comment on above: Performed By: #### C P, CDP #### [address] [place] [address] Looseleaf Binder Coverer: Clark Mata MD Potassium [Moles/Vol] 4.0 mmol/L Normal 3.7-5.3 [facility] Comment on above: Performed By: #### C P, CDP #### [address] [place] [address] Looseleaf Binder Coverer: Clark Mata MD Protein [Mass/Vol] 6.2 g/dL Low 6.6-8.7 [facility] Comment on above: Performed By: #### C P, CDP #### [facility] [address] [place] [address] Looseleaf Binder Coverer: Clark Mata MD Sodium [Moles/Vol] 134 mmol/L Low 136-145 [facility] Comment on above: Performed By: #### C P, CDP #### [facility] [address] [place], [place] 7875683 [employer]oseleaf Binder Coverer: Clark Mata MD Urea nitrogen [Mass/Vol] 10 mg/dL Normal 6-20 [facility] Comment on above: Performed By: #### C P, CDP #### [facility] [address] [place], [place] 2336383 Looseleaf Binder Coverer: Clark Mata MD Lipaseon 12-09-2023 Lipase [Catalytic activity/Vol] 41 U/L Normal 13-60 [facility] Comment on above: Performed By: #### L IP #### [facility] [address] [place], [place] [address]83 [employer]oseleaf Binder Coverer: Clark Mata MD UA w/Reflex Cultureon 2023 Bilirubin, SemiQt,Ur Negative Normal NEG [facility] Comment on above: Performed By: #### U AXRAFFYO #### [facility] [address] [place], [place] [address]83 [employer]leaf Binder Coverer: Clark Mata MD Blood, Urine Negative Normal NEG [facility] Comment on above: Performed By: #### U AXRAFFYO #### [facility] [address] [place], [place] 165[address]83 [employer]oseleaf Binder Coverer: Clark Mata MD Clarity (U) Clear Normal CLEAR [facility] Comment on above: Performed By: #### U AXRAFFYO #### [facility] [address] [place], [place] 8[address]83 [employer]oseleaf Binder Coverer: Clark Mata MD Color (U) Yellow Normal YEL [facility] Comment on above: Performed By: #### U AXRAFFYO #### [facility] [address] [place], [place] [address] Looseleaf Binder Coverer: Clark Mata MD Glucose Ql (U) Negative Normal NEG [facility] Comment on above: Performed By: #### U AXJOAQUINAICAO #### [facility] [address] [place], [place] 420[address]83 [employer]oseleaf Binder Coverer: Clark Mata MD Ketones Ql (U) Negative Normal NEG [facility] Comment on above: Performed By: #### U AX, UMICAO #### [facility] [address] [place], [place] 148[address]83 Looseleaf Binder Coverer: Clark Mata MD Leukocyte esterase Test strip Ql (U) Negative Normal NEG [facility] Comment on above: Performed By: #### U AX, UMICAO #### [facility] [address] [place] [address] [place], [place] [address]83 Looseleaf Binder Coverer: Clark Mata MD Nitrite,Ur Negative Normal [facility] Comment on above: Performed By: #### U AX, UMICAO #### [facility] [address] [place] [address] [place], [place] 7634183 Looseleaf Binder Coverer: Clark Mata MD PH,Ur 7.0 Normal 5.0-9.0 [facility] Comment on above: Performed By: #### U AX, UMICAO #### [facility] [address] [place] [address] [place] [address] Looseleaf Binder Coverer: Clark Mata MD Protein Ql (U) Negative Normal NEG [facility] Comment on above: Performed By: #### U AX, UMICAO #### [facility] [address] [place], [place] [address] Looseleaf Binder Coverer: Clark Mata MD Spec. Newman,Ur 1.015 Normal 1.010-1.020 [facility] Comment on above: Performed By: #### U AX, UMICAO #### [facility] [address] [place], [place] 287[address]83 Looseleaf Binder Coverer: Clark Mata MD Urobilinogen,Ur Normal Normal 0.0-1.0 [facility] Comment on above: Performed By: #### U AXRAFFYO #### [facility] [address] [place] [address] Looseleaf Binder Coverer: Clark Mata MD US GALLBLADDER RUQon 024 [...] Sabi Leung MD 12/09/23 Final result Normal [facility] Urinalysis,Microon 4 Epithelial cells LM Ql (Urine sed) 0 TO 2 Normal 0-25 [facility] Comment on above: Performed By: #### U JOAQUINA CHAUDHRYICAO #### [facility] [address] [place] [address] Looseleaf Binder Coverer: Clark Mata MD Urine RBC's None Normal 0-2 [facility] Comment on above: Performed By: #### ARNOLD MARTINO #### [facility] [address] [place] [address] Looseleaf Binder Coverer: Clark Mata MD Urine WBC's 0 TO 2 Normal 0-5 [facility] Comment on above: Performed By: #### ARNOLD MARTINO #### [facility] [address] [place] [address] Looseleaf Binder Coverer: Clark Mata MD 12-03-2023 36 Echo order faxed over [facility] on 12-02-2023 36 Called and left detailed message for patient [facility] 36 This will be fine [facility] 3611-24-2023 36 Patient called stating that they [place] does not have any appointment for an echo until 32 week. She wants to know if it is okay for her to get it at 32 weeks or what else do you suggest. Please advise [facility] 11-23-2023 36 I called [facility] and I left a message on her voicemail that I would put an order in but she needs to call the [facility] scheduling line and get it scheduled in our office will fax the order to them. I asked her to schedule it for 30 weeks gestation. Please make sure that the order is faxed to [facility] scheduling. [facility] Orders Onlyon 11-23-2023 Orders Only [id number] Lisa Cardenas 1995 F Date Provider Department Center 11/23/2023 CHEPE GOODSON No family history on file [facility] 36on 11-21-2023 36 Pt called in [...] next apt with Dr. Peraza on 01/12. [facility] Telephoneon 11-21-2023 Telephone [id number] Lisa Cardenas 1995 F Date Provider Department Center 11/21/2023 CHEPE GOODSON No family history on file Reason for Visit and Comments: ECHO [Other] [facility] Office Visiton 10-07-2023 Follow-up visit [id number] Lisa Cardenas 1995 F Date Provider Department Center 10/07/2023 CHEPE GOODSON RPW PED Simon Rao No family history on file Level of Service:15601 [place] OFFICE/OUTPATIENT ESTABLISHED MOD MDM 30 MIN Reason for Visit and Comments: Heart Problem [54] - Transfer from [facility] - 18 wks [facility] CHG US SOFT TISSUE HEAD & NE CK REAL TIME IMGE DOCMon 09-23-2023 Radiology Study observation (narrative) [facility] CHG US SOFT TISSUE HEAD & NE CK [facility]23 Andres Torres MD 09/23/2023 6:28 PM Ms. Cardenas was seen and examined with Dr. Hall, I independently verified the findings on US and agree with the documented report - thyroid ultrasound report appears in the notes tab. [facility] US Unspecified body regionOr dered By: Unassigned Pacs on 09-22-2023 [facility] Work Phone: US Unspecified body regionon 09-22-2023 Radiology Study observation (narrative) [facility] 36on 07-04-2023 36 Created in error [facility] 36 Scheduled an appointment October 06 at 8:30am. [facility] 36 If this patient schedules a [...] her and left her message as well. [facility] 36on 07-03-2023 36 Patient is newly (4wks) and is currently scheduled in August for her yearly visit.. She is asking if she needs to reschedule to do the 20-24 wk gestational testing. PH: [phone] [facility] Telephoneon 07-03-2023 Telephone [phone] Lisa Peña 1995 F Date Provider Department Center 07/03/2023 [id number], CRYSTAL RPW PED [employer] No family history on file Normal [facility] VZ Immunityon 06-23-2023 VZ Immunity 3.84 Normal >1.09 [facility] Comment on above: Result Comment: Interpretation: IMMUNE Reference Range: <0.91 Not Immune 0.91-1.09 Equivocal >1.09 Immune Performed By: #### V ZI #### [facility] [address] [place] [address] Looseleaf Binder Coverer: Bear Mejias MD US THYROIDon 06-03-2023 US [...] Echogenicity: Hyperechoic or isoechoic (1 point) Shape: [id number] (0 points) Margin: Smooth (0 points) Echogenic [...] using ACR TI-RADS. (JACR July 2016) Normal [facility] FREE T4on 05-23-2023 Free T4 [Mass/Vol] 1.0 ng/dL Normal 0.9-1.8 [facility] Comment on above: Order Comment: Locat ion: Performed By: #### L [id number], [id number] #### ANIL WENDIE ([id number]) [facility] ([facility]) [address], [address] [place] [address] TSHon 05-23-2023 TSH 2.599 MIU/mL Normal 0.550-4.780 [facility] Comment on above: Order Comment: Locat ion: Performed By: #### L [id number], [id number] #### ANIL PRESSLEY ([id number]) [facility] ([facility]) [address], [address] [place] [address] RF videography Hypopharynx a nd Esophagus Views [...] report for further details and dietary recommendations. [facility] Radiology Study observation (narrative) [facility] Hypopharynx a nd Esophagus Views W liquid and paste contrast PO during swallowingOrdered By: Gisele Hardy on 01-09-2023 [facility] Work Phone: XR FLUORO MODIFIED BARIUM [...] for further details and dietary recommendations. Normal [facility] CT NECK WITH CONTRASTon 10- CT [...] error, please notify the sender immediately at [phone] and permanently delete the original report and destroy any copies or printouts. Normal [facility] Scroll Saw Operator Cytology Reporton 2022 Scroll Saw Operator Cytology Report Clinical Information Specimen Collection [...] smears in the future. 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 Patient reports some [...] and the last time she saw her multimedia production assistant thought there might have been some dilation [...] will send patient for preconceptual counseling with [facility] because of her cardiac abnormality Follow-up [...] intractable, w/o (more content not included)... Normal [facility] Culture, Urineon 08-04-2020 RPT Microbiology results Abnormal [facility] Comment on above: Order Comment: Items in this order include: Culture, Urine Testing Performed By: [facility] [address] [place] [address] Dr. Anil Pressley, Looseleaf Binder Coverer Result Comment: [place] Count: 10,000-25,000 CFU/ML Final Result: Escherichia [...] R Performed By: #### C 734 #### [facility] [address] [place] [address] [address] [place] [address] Culture, Urineon 03-14-2020 RPT Microbiology results Abnormal [facility] Comment on above: Order Comment: Items in this order include: Culture, Urine Testing Performed By: [facility] [address] [place] [address] Dr. Shaunna Cummins, Looseleaf Binder Coverer Result Comment: [place] Count: >100,000 CFU/ML Final Result: Escherichia [...] C 734 #### [facility] [address] [place] [address] Culture, Urineon 12-14-2019 RPT Microbiology results Abnormal [facility] Comment on above: Order Comment: Items in this order include: Culture, Urine Testing Performed By: [facility] [address] [place] [place] [address] Dr. Shaunna Cummins, Looseleaf Binder Coverer Result Comment: [place] Count: 50,000-75,000 CFU/ML Final Result: Escherichia [...] C 734 #### [facility] [address] [place] [address] Vital Signs Date Time Vital Sign Value Performing Clinician Facility 02-26-2024 15:04-0500 Body mass index (BMI) [Ratio] 29.56 kg/m2 [facility] 02-26-2024 15:04-0500 Body weight 78.11 kg [facility] 02-26-2024 15:04-0500 Diastolic blood pressure 72 mm[Hg] [facility] 02-26-2024 15:04-0500 Systolic blood pressure 106 mm[Hg] [facility] 02-18-2024 14:49-0500 Body mass index (BMI) [Ratio] 29.25 kg/m2 [facility] 02-18-2024 14:49-0500 Body weight 77.29 kg [facility] 02-18-2024 14:49-0500 Diastolic blood pressure 80 mm[Hg] [facility] 02-18-2024 14:49-0500 Systolic blood pressure 132 mm[Hg] [facility] 02-13-2024 10:32-0500 Body mass index (BMI) [Ratio] 29.3 kg/m2 [facility] Risk [facility] 02-13-2024 10:32-0500 Body weight 77.43 kg [facility] 02-13-2024 10:32-0500 Diastolic blood pressure 82 mm[Hg] [facility] 02-13-2024 10:32-0500 Systolic blood pressure 124 mm[Hg] [facility] 01-27-2024 10:23-0500 Body mass index (BMI) [Ratio] 28.58 kg/m2 [facility] Initial [facility] 01-27-2024 10:23-0500 Body weight 75.52 kg [facility] Initial [facility] 01-27-2024 10:23-0500 Diastolic blood pressure 74 mm[Hg] [facility] Initial [facility] 01-27-2024 10:23-0500 Systolic blood pressure 110 mm[Hg] [facility] Initial [facility] 01-13-2024 13:51-0500 Body height 162.6 cm Duarte Bernard MD Work Phone: [facility] 01-13-2024 13:51-0500 Body mass index (BMI) [Ratio] 28.12 kg/m2 Duarte Bernard MD Work Phone: [facility] 01-13-2024 13:51-0500 Body weight 74.3 kg Duarte Bernard MD Work Phone: [facility] 01-13-2024 13:51-0500 Diastolic blood pressure 75 mm[Hg] Duarte Bernard MD Work Phone: [facility] 01-13-2024 13:51-0500 Heart rate 79 /min Duarte Bernard MD Work Phone: [facility] 01-13-2024 13:51-0500 Systolic blood pressure 109 mm[Hg] Duarte Bernard MD Work Phone: [facility] 12-30-2023 10:58-0400 Body mass index (BMI) [Ratio] 28.12 kg/m2 Sammy Stu DO Work Phone: [facility] 12-30-2023 10:58-0400 Body weight 74.3 kg Sammy Stu DO Work Phone: [facility] 12-30-2023 10:58-0400 Diastolic blood pressure 64 mm[Hg] Sammy Stu DO Work Phone: [facility] 12-30-2023 10:58-0400 Systolic blood pressure 100 mm[Hg] Sammy Stu DO Work Phone: [facility] 12-17-2023 10:27-0400 Body mass index (BMI) [Ratio] 27.6 kg/m2 Ella SQUIRES Work Phone: [facility] 12-17-2023 10:27-0400 Body weight 72.94 kg Ella Bonnie PA Work Phone: [facility] 12-17-2023 10:27-0400 Diastolic blood pressure 64 mm[Hg] Ella Bonnie PA Work Phone: [facility] 12-17-2023 10:27-0400 Systolic blood pressure 100 mm[Hg] Ella Nicole PA Work Phone: [facility] 09-22-2023 13:37-0400 Body height 162.6 cm Latrice Hall MD Work Phone: [facility] 09-22-2023 13:37-0400 Body mass index (BMI) [Ratio] 25.4 kg/m2 Latrice Hall MD Work Phone: [facility] 09-22-2023 13:37-0400 Body temperature 97.3 [degF] Latrice Hall MD Work Phone: [facility] 09-22-2023 13:37-0400 Body weight 67.13 kg Latrice Hall MD Work Phone: [facility] 09-22-2023 13:37-0400 Diastolic blood pressure 62 mm[Hg] Latrice Hall MD Work Phone: [facility] 09-22-2023 13:37-0400 Systolic blood pressure 114 mm[Hg] Latrice Hall MD Work Phone: [facility] 12-24-2022 16:30-0400 Body height 162.6 cm Regan Edinson LOGISTICS PLANNING ENGINEER-MUTUEL DEPARTMENT MANAGER Work Phone: [facility] 12-24-2022 16:30-0400 Body mass index (BMI) [Ratio] 23.17 kg/m2 Regan Edinson LOGISTICS PLANNING ENGINEER-MUTUEL DEPARTMENT MANAGER Work Phone: [facility] 12-24-2022 16:30-0400 Body weight 61.24 kg Regan Edinson LOGISTICS PLANNING ENGINEER-MUTUEL DEPARTMENT MANAGER Work Phone: [facility] 12-24-2022 16:30-0400 Diastolic blood pressure 68 mm[Hg] Reagn Edinson LOGISTICS PLANNING ENGINEER-MUTUEL DEPARTMENT MANAGER Work Phone: [facility] 12-24-2022 16:30-0400 Heart rate 71 /min Regan Edinson LOGISTICS PLANNING ENGINEER-MUTUEL DEPARTMENT MANAGER Work Phone: [facility] 12-24-2022 16:30-0400 Systolic blood pressure 108 mm[Hg] Regan Edinson LOGISTICS PLANNING ENGINEER-MUTUEL DEPARTMENT MANAGER Work Phone: [facility] 12-24-2022 11:37-0400 Body mass index (BMI) [Ratio] 23.22 kg/m2 Emile Armas MD Work Phone: [facility] 12-24-2022 11:37-0400 Body temperature 98.2 [degF] Emile Armas MD Work Phone: [facility] 12-24-2022 11:37-0400 Body weight 61.37 kg Emile Armas MD Work Phone: [facility] 12-24-2022 11:37-0400 Diastolic blood pressure 78 mm[Hg] Emile Armas MD Work Phone: [facility] 12-24-2022 11:37-0400 Heart rate 73 /min Emile Armas MD Work Phone: [facility] 12-24-2022 11:37-0400 Respiratory rate 16 /min Emile Armas MD Work Phone: [facility] 12-24-2022 11:37-0400 SaO2% (BldA) [Mass fraction] 99 % Emile Armas MD Work Phone: [facility] 12-24-2022 11:37-0400 Systolic blood pressure 123 mm[Hg] Emile Armas MD Work Phone: [facility] Encounters Encounter Date Encounter Type Care Provider Facility Start: 02-26-2024 End: 02-26-2024 Patient encounter procedure [facility] Comment on above: GA: 38w3d Start: 02-26-2024 End: 02-26-2024 ambulatory [facility] Start: 02-18-2024 End: 02-18-2024 Patient encounter procedure [facility] Comment on above: GA: 37w2d Start: 02-18-2024 End: 02-18-2024 ambulatory [facility] Start: 02-13-2024 End: 02-13-2024 ambulatory KORTNEY SPARROW [facility] Start: 02-13-2024 End: 02-13-2024 Patient encounter procedure [facility] Comment on above: GA: 36w4d Start: 02-13-2024 End: 02-13-2024 ambulatory HERVE MOREJON [facility] Start: 02-12-2024 End: 02-12-2024 ambulatory CHEPE Pham [facility] Start: 02-11-2024 End: 02-11-2024 Office outpatient visit 15 minutes Duarte Bernard MD Work Phone: Maternal- Medicine at [facility] Comment on above: Maternal cardiovascu lar disease affecting in third trimester (Primary Dx) Start: 02-11-2024 End: 02-11-2024 ambulatory [facility] Start: 01-27-2024 End: 01-27-2024 Initial care visit [facility] High [facility] Initial [facility] Comment on above: GA: 34w1d Start: 01-27-2024 End: 01-27-2024 ambulatory HERVE JO [facility] Start: 01-26-2024 End: 01-26-2024 ambulatory SAMMY PERAZA Not Available Start: 01-14-2024 End: 01-14-2024 ambulatory ELLA NICOLE Not Available Start: 01-13-2024 End: 01-13-2024 Office outpatient visit 15 minutes Duarte Bernard MD Work Phone: [facility]- Medicine at [facility] Comment on above: Ascending aorta dila tion ([facility]) (Primary Dx); 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 Start: 01-13-2024 End: 01-13-2024 ambulatory SAMMY PERAZA [facility] Start: 01-13-2024 End: 01-13-2024 [facility] Start: 12-30-2023 End: 12-30-2023 Bamboo flowsheet [...] cervical length Start: 12-29-2023 End: 12-29-2023 ambulatory [facility] Start: 12-27-2023 End: 12-27-2023 Clinisync Result Encounter Sammy Stu DO Work Phone: [facility] External Department Unsolicited Start: 12-27-2023 End: 12-27-2023 Clinisync Result Encounter Sammy Stu DO Work Phone: [facility] External Department Unsolicited Start: 12-17-2023 End: 12-17-2023 Bamboo flowsheet Ella SQUIRES Work Phone: [facility] Start: 12-17-2023 End: 12-17-2023 Bamboo flowsheet Ella SQUIRES Work Phone: [facility] Start: 12-17-2023 End: 12-17-2023 flow sheet Ella SQUIRES Work Phone: [facility] Comment on above: 28 weeks gestation o f ; Third trimester Start: 12-17-2023 End: 12-17-2023 ambulatory ELLA NICOLE Not Available Start: 12-09-2023 End: 12-09-2023 Emergency department patient visit [facility] Start: 11-26-2023 End: 11-26-2023 ambulatory ELLA NICOLE Not Available Start: 11-18-2023 End: 11-18-2023 ambulatory SAMMY R [facility] Start: 10-31-2023 End: 10-31-2023 ambulatory CHEPE Pham [facility] Start: 10-30-2023 End: 10-30-2023 ambulatory SAMMY STU Not Available Start: 10-20-2023 End: 10-20-2023 ambulatory SAMMY R [facility] Start: 10-07-2023 End: 10-07-2023 ambulatory CHEPE PERAZA [facility] Start: 09-30-2023 End: 09-30-2023 ambulatory ELLA NICOLE Not Available Start: 09-22-2023 End: 09-22-2023 Office outpatient new 45 minutes Latrice Hall MD Work Phone: [facility]ocrinology [facility] Comment on above: Thyroid nodule (Prim subhash Dx) Start: 09-22-2023 ambulatory LATRICE HALL Facilit y:[facility] Start: 09-01-2023 End: 09-01-2023 ambulatory SAMMY STU Not Available Start: 07-31-2023 End: 07-31-2023 ambulatory DI ABDULKADIR Not Available Start: 06-20-2023 End: 06-20-2023 [facility]ulatory [facility] Start: 06-02-2023 ambulatory HERVE JIMENEZ [facility] ility:[facility] Start: 06-02-2023 End: 06-02-2023 Subsequent hospital visit by physician Herve Jimenez MD Work Phone: Department of Radiology Comment on above: Arrived Start: 05-27-2023 End: 05-27-2023 ambulatory DI L ABDULKADIR Not Available Start: 05-23-2023 End: 05-23-2023 ambulatory HERVE JIMENEZ [facility] Start: 01-09-2023 End: 01-09-2023 Subsequent hospital visit by physician Emile Armas MD Work Phone: Department of Radiology Comment on above: Arrived Start: 01-09-2023 ambulatory HERVE Benavides ility:[facility] Start: 12-24-2022 End: 12-24-2022 Subsequent hospital visit by physician Regan Neves LOGISTICS PLANNING ENGINEER-MUTUEL DEPARTMENT MANAGER Work Phone: [facility] [place] Comment on above: Arrived Start: 12-24-2022 ambulatory REGAN NEVES Facilit y:[facility] Start: 12-24-2022 End: 12-24-2022 Office outpatient new 45 minutes Emile Armas MD Work Phone: Department of Otolaryngology Comment on above: Lymphadenopathy (Alicia ramin Dx) Start: 12-24-2022 ambulatory SELF SELF Facility:[facility] Start: 11-20-2022 End: 11-20-2022 Office consultation new/estab patient 60 min Belle Jose DO Work Phone: Maternal Medicine [facility] [place] Comment on above: Encounter for precon ception consultation (Primary Dx); Bicuspid aortic valve Start: 11-20-2022 ambulatory HEVRE JIMENEZ Fac ility:[facility] Start: 08-15-2022 End: 08-15-2022 Subsequent hospital visit by physician Chepe Peraza MD Work Phone: Cardiovascular Imaging Lab [facility] Comment on above: Canceled (Cancel Ligia son Not Listed - Please provide detailed information) Start: 05-21-2022 End: 05-22-2022 ambulatory Jake Foster MD Facility:[facility] Start: 06-05-2021 End: 06-05-2021 Postop follow up visit related to original px Charlotte Cárdenas MD Work Phone: [facility] [place] Comment on above: Postop check (Primar y Dx) Start: 03-18-2018 End: 03-18-2018 Patient encounter procedure Darryn Kennedy Work Phone: [facility] Comment on above: Other fatigue; Lymph adenopathy of head and neck Procedures Date Procedure Procedure Detail Performing Clinician Start: 12-30-2023 Urnls dip stick/tabl et rgnt non-auto w/o micrscp Sammy Stu DO Work Phone: Start: 12-27-2023 [facility] UA (CLEAN/CATCH) SOLUTION DESIGNER/MICRO IF IND. Sammy Peraza DO Work Phone: [...] esop hagus single contrast study Regan Neves LOGISTICS PLANNING ENGINEER-MUTUEL DEPARTMENT MANAGER Work Phone: Plan of Treatment Date Care Activity Detail Author Start: 01-07-2034 DTaP,Tdap and Td Vaccines (6 - Td or Tdap) DTaP,Tdap and Td Vaccines (6 - Td or Tdap) [facility] Start: 09-29-2026 Screening for malign ant neoplasm of cervix Pap Smear [facility] Start: 02-25-2025 Adult BMI Screening Adult BMI Screen ing [facility] Start: 02-25-2025 Tobacco Screening Tobacco Screening [facility] Start: 02-17-2025 Adult BMI Screening Adult BMI Screen ing [facility] Start: 02-17-2025 Tobacco Screening Tobacco Screening [facility] Start: 02-11-2025 Adult BMI Screening Adult BMI Screen ing [facility] Start: 01-26-2025 Adult BMI Screening Adult BMI Screen ing [facility] Start: 01-12-2025 Adult BMI Screening Adult BMI Screen ing [facility] Start: 01-12-2025 Tobacco Screening Tobacco Screening [facility] Start: 05-28-2024 End: 05-28-2024 Patient encounter procedure 05/28/2024 10:40 AM EDT Office Visit [facility] [address] [place] [address] Di Panchal, PA [address] [place] [address] COLTGiovani WIN Start: 03-04-2024 End: 03-04-2024 Patient encounter procedure 03/04/2024 2:15 PM EST Routine [facility] [address] [place] [address] Kortney Sparrow DO [address] [address] [facility] Start: 02-26-2024 End: 02-26-2024 Patient encounter procedure 02/26/2024 3:00 PM EST [facility] [address] [place] [id number] [facility] Start: 02-13-2024 End: 02-13-2024 Patient encounter procedure [facility] Start: 02-12-2024 End: 02-12-2024 Patient encounter procedure 02/12/2024 2:00 PM EST Appointment Jodie [facility] [address] [place] [id number] [facility] Start: 02-11-2024 End: 02-11-2024 Telemedicine consultation with patient 02/11/2024 8:00 AM EST Telemedicine Maternal- Medicine at [facility] [address] [place] [phone] Duarte Bernard MD [address] [place] [address] [facility] at [facility] Start: 01-27-2024 End: 01-27-2024 ambulatory 01/27/2024 10:30 AM EST Initial [facility] [address] [place] [address] [facility] Start: 01-26-2024 End: 04-27-2024 US MFM with or without consult US MFM with or without consult Imaging Routine Bicuspid aortic valve Congenital heart disease Ascending aorta dilation ([facility]) Maternal cardiovascular disease affecting in third trimester Expected: 01/26/2024, Expires: 04/27/2024 [facility] Work Phone: Comment on above: Expected: 01/26/2024 , Expires: 04/27/2024 Start: 01-14-2024 End: 01-14-2024 Patient encounter procedure 01/14/2024 10:30 AM EST Routine [facility] [address] [place] [id number] Ella Nicole PA [address] [place], [place] [id number] [facility] Start: 12-30-2023 End: 12-29-2024 US biophysical profile w non stress test US biophysical profile w non stress test Imaging Routine Aortic stenosis of mother during Hypothyroid in , antepartum (CMS/HCC) Expected: 12/30/2023 (Approximate), Expires: 12/29/2024 [facility] Work Phone: Comment on above: Expected: 12/30/2023 (Approximate), Expires: 12/29/2024 Start: 12-30-2023 End: 12-29-2024 US for US OB AMNIOTIC FLUID VOLUME Imaging Routine Vaginal discharge during in second trimester Expected: 12/30/2023 (Approximate), Expires: 12/29/2024 [facility] [employer] Comment on above: Expected: 12/30/2023 (Approximate), Expires: 12/29/2024 Start: 12-30-2023 End: 12-29-2024 US Pelvis transvaginal US OB transvaginal Imaging Routine Encounter for screening for cervical length Expected: 12/30/2023 (Approximate), Expires: 12/29/2024 [facility] Comment on above: Expected: 12/30/2023 (Approximate), Expires: 12/29/2024 Start: 12-30-2023 End: 12-30-2023 Patient encounter procedure 12/30/2023 10:30 AM EDT Routine [facility] [address] [place] [address] Sammy Peraza DO [address] Jake Pearce, [facility] Start: 12-17-2023 End: 12-17-2023 Patient encounter procedure 12/17/2023 10:20 AM EDT Routine [facility] [address] [place] [address] Ella Nicole, TAVIA [address] [place] [address] Arrived [facility] Comment on above: Arrived Start: 11-09-2023 Influenza vaccination O LINARES [facility] Start: 06-03-2023 ambulatory Ambulatory Facility:[facility] Villanue[facility] Start: 01-09-2023 End: 01-09-2023 ambulatory 01/09/2023 8:30 AM EDT Rehab Services Visit [facility] [address] [place] [phone] [facility] Start: 01-09-2023 End: 01-09-2023 Patient encounter procedure 01/09/2023 8:30 AM EDT Appointment Department of Radiology [address] [place] [address] Department of Radiology Start: 12-24-2022 End: 12-25-2023 CT Neck W contrast IV [facility] Comment on above: Expected: 12/24/2022 , Expires: 12/25/2023 1 Occurrences starti ng 12/24/2022 until 12/24/2022 Start: 12-24-2022 End: 12-25-2023 RF videography Hypopharynx and Esophagus Views W liquid and paste contrast PO during swallowing XR FLUORO MODIFIED BARIUM SWALLOW-ENT ONLY Imaging Routine Lymphadenopathy Expected: 12/24/2022, Expires: 12/25/2023 [facility] Comment on above: Expected: 12/24/2022 , Expires: 12/25/2023 Start: 11-08-2022 COVID-19 VACCINE ( season) COVID-19 VACCINE ( season) [facility] Start: 11-08-2022 Influenza vaccination O [facility] Start: 11-08-2020 Influenza vaccination INFLUENZA VACC INE (#1) [facility] Start: 03-27-2018 End: 03-27-2018 Ambulatory 03/27/2018 Appointment Ultrasound Darryn Kenndey, MUTUEL DEPARTMENT MANAGER [address] [address] Department of Radiology Start: 03-18-2018 End: 03-18-2019 US scan of neck US NECK SOFT TISSUE Routine Other fatigue Lymphadenopathy of head and neck Expected: 03/18/2018, Expires: 03/18/2019 [facility] Work Phone: Comment on above: Expected: 03/18/2018 , Expires: 03/18/2019 Start: 11-08-2017 Influenza vaccination INFLUENZA VACC INE (#1) [facility] Work Phone: Start: 2015 Screening for malign ant neoplasm of cervix [facility] Start: 2013 Hepatitis B vaccination HEP B VACCINE (1 of 3 - 19+ 3-dose series) [facility] Start: 2013 Third diphtheria, tetanus and acellular pertussis (DTaP) vaccination TDAP (ADULT) [facility] Start: 02-04-2012 Adult BMI Follow Up Plan Adult BMI F ollow Up Plan [facility] Start: 02-04-2012 GONORRHEA SCREEN GONORRHEA SCREEN [facility] Work Phone: Start: 02-04-2012 Tetanus vaccination TETANUS [facility] Start: 2010 Screening for Chlamy kyle trachomatis CHLAMYDIA SCREEN [facility] Work Phone: Start: 2009 HIV screening HIV SCREENING DISCUSSI ON [facility] Start: 2007 HIV screening HIV SCREENING DISCUSSI ON [facility] Work Phone: Start: 2006 Depression Screening Depression Scre [facility] Start: 03-13-2005 Tetanus vaccination TETANUS [facility] Start: 2005 Vaccination for jelly n papillomavirus HPV VACCINE ADOL (1 - Female 3-dose series) [facility] Work Phone: Start: 02-04-2000 PNEUMOCOCCAL VACCINE SERIES (1 of 2 - PCV) PNEUMOCOCCAL VACCINE SERIES (1 of 2 - PCV) [facility] Start: 1999 COVID-19 VACCINE (1) COVID-19 VACCIN E (1) [facility] Start: 1994 COVID-19 VACCINE (#1) COVID-19 VACCI NE (#1) [facility] Start: 1994 Hepatitis C antibody , confirmatory test HEPATITIS C VIRUS SCREENING [facility] Start: 1994 Hepatitis C screening HEPATITI S C VIRUS SCREENING [facility] CHLAMYDIA TRACHOMATI S (GENITO/STI) CHLAMYDIA TRACHOMATIS (GENITO/STI) Lab Routine Vaginal discharge during in second trimester Ordered: 12/30/2023 [facility] Comment on above: Ordered: 12/30/2023 End: 05-25-2024 nonstress test - Maternal Medicine nonstress test - Maternal Medicine OB Routine Bicuspid aortic valve Congenital heart disease Ascending aorta dilation (CMS-HCC) Maternal cardiovascular disease affecting in third trimester Per Treatment Plan for 6 Occurrences starting 01/26/2024 until 05/25/2024 [facility] Comment on above: Per Treatment Plan f or 6 Occurrences starting 01/26/2024 until 05/25/2024 Laryngoscopy flexibl e diagnostic [place] LARYNGOSCOPY FLEXIBLE DIAGNOSTIC [place] Charge Routine Lymphadenopathy Ordered: 12/24/2022 [facility] Comment on above: Ordered: 12/24/2022 Neisseria gonorrhoea e DNA [Presence] in Unspecified specimen by VANESSA with probe detection Neisseria gonorrhea DNA probe, direct Lab Routine Vaginal discharge during in second trimester Ordered: 12/30/2023 [facility] Comment on above: Ordered: 12/30/2023 SURESWAB(R) ADVANCED VAGINITIS PLUS, TMA SURESWAB(R) ADVANCED VAGINITIS PLUS, TMA Pathology and Cytology Routine Vaginal discharge during in second trimester Ordered: 12/30/2023 [facility] Comment on above: Ordered: 12/30/2023 End: 06-02-2023 US Thyroid gland [facility] Work Phone: Comment on above: 1 Occurrences starti ng 06/02/2023 until 06/02/2023 Immunizations Immunization Date Immunization Notes Care Provider Fa cility 01-08-2024 tetanus toxoid, redu allison diphtheria toxoid, and acellular pertussis vaccine, adsorbed Chs Risk [facility] 12-25-2022 influenza, injectabl e, quadrivalent, preservative free Chs Risk [facility] 12-25-2022 influenza virus vaccine, unspecified formulation Latrice Hall MD Work Phone: [facility] 01-08-2016 influenza, injectabl e, quadrivalent, preservative free Chs Risk [facility] 01-08-2016 influenza virus vaccine, unspecified formulation Charlotte Cárdenas MD Work Phone: [facility] 01-02-2015 influenza, seasonal, injectable, preservative free Chs Risk [facility] 12-19-2013 influenza, seasonal, injectable, preservative free Chs Risk [facility] 03-13-1995 DTP-Haemophilus influenzae type b conjugate vaccine Chs Risk [facility] 02-06-1995 measles, mumps and rubella virus vaccine Chs Risk [facility] 1994 DTP-Haemophilus influenzae type b conjugate vaccine Chs Risk [facility] 1994 trivalent poliovirus vaccine, live, oral Chs Risk [facility] 1994 DTP-Haemophilus influenzae type b conjugate vaccine Chs Risk [facility] 1994 trivalent poliovirus vaccine, live, oral Chs Risk [facility] 1994 DTP-Haemophilus influenzae type b conjugate vaccine Chs Risk [facility] 1994 trivalent poliovirus vaccine, live, oral Chs Risk [facility] 1994 haemophilus influenz ae type b vaccine, conjugate unspecified formulation Chs Risk [facility] 1994 haemophilus influenz ae type b vaccine, conjugate unspecified formulation Chs Risk [facility] Payers Date Payer Category Payer Unknown [id number] 2023 Commercial Managed C are - POS [id number] 2023 Managed Care HMO (unspecified) [id number] 2023 Private Health Insurance PUMA ALEGRE [id number] 2023-Present [address] [place] [address] [id number] 2023 Private Health Insurance [id number] 2021 Unknown [id number] 2020 Unknown [id number] [id number] .[id number] 2020 Unknown [id number] 1994 Unknown [id number] 2.16.840.1.269975.3.579.2 .196 1994 Unknown [id number] 2.16.840.1.721374.3.579.2 .196 1994 Unknown [id number] 2.16.840.1.192638.3.579.2 .196 1994 Unknown [id number] 2.16.840.1.014512.3.579.2 .1260 1994 Unknown [id number] 2.16.840.1.022697.3.579.2 .594 1994 Unknown [id number] 2.16.840.1.169491.3.579.2 .594 1994 Unknown [id number] 2.16.840.1.554038.3.579.2 .594 1994 Unknown [id number] 2.16.840.1.849519.3.579.2 .594 1994 Unknown [id number] 2.16.840.1.377444.3.579.2 .594 1994 Unknown [id number] 2.16.840.1.538812.3.579.2 .594 1994 Unknown [id number] 2.16.840.1.873294.3.579.2 .594 1994 Unknown [id number] 2.16.840.1.634510.3.579.2 .594 1994 Unknown [id number] 2.16.840.1.647309.3.579.2 .173 1994 Unknown [id number] 2.16.840.1.263051.3.579.2 .173 1994 Unknown [id number] 2.16.840.1.469601.3.579.2 .1259 1994 Unknown [id number] 2.16.840.1.984625.3.579.2 .1259 1994 Unknown [id number] 2.16.840.1.923605.3.579.2 .1259 1994 Unknown [id number] 2.16.840.1.693748.3.579.2 .1259 1994 Unknown [id number] 2.16.840.1.381772.3.579.2 .1259 1994 Unknown [id number] 2.16.840.1.389169.3.579.2 .1259 1994 Unknown [id number] 2.16.840.1.335212.3.579.2 .1259 1994 Unknown [id number] 2.16.840.1.608903.3.579.2 .9 1994 Unknown [id number] 2.16.840.1.032928.3.579.2 .1258 1994 Unknown [id number] 2.16.840.1.565022.3.579.2 .125 1994 Unknown [id number] 2.16.840.1.534271.3.579.2 .1285 1994 Unknown [id number] 2.16.840.1.611034.3.579.2 .1285 1994 Unknown [id number] 2.16840.1.809102.3.579.2 .1285 1994 Unknown [id number] 2.16840.1.639080.3.579.2 .1285 1994 Unknown [id number] 2.16.840.1.707596.3.579.2 .1285 1994 Unknown [id number] 2.16.840.1.752006.3.579.2 .1285 1994 Unknown [id number] 2.16840.1.289852.3.579.2 .1285 1994 Unknown [id number] 2.16.840.1.119593.3.579.2 .1285 1994 Unknown [id number] 2.16.840.1.629919.3.579.2 .1285 1994 Unknown [id number] 2.16.840.1.881927.3.579.2 .1285 1994 Unknown [id number] 2.16.840.1.784504.3.579.2 .1285 1994 Unknown [id number] 2.16.840.1.348253.3.579.2 .1286 1994 Unknown [id number] 2.16.840.1.067033.3.579.2 .1286 1994 Unknown [id number] 2.16.840.1.433598.3.579.2 .1286 1994 Unknown [id number] 2.16.840.1.565629.3.579.2 .1286 1994 Unknown [id number] 2.16.840.1.291515.3.579.2 .1286 Social History Date Type Detail Facility Tobacco smoking stat us SCIS Unknown if ever smoked [facility] Work Phone: Start: 1994 Sex Assigned At Not on file [facility] Work Phone: Start: 04-21-2018 End: 09-09-2023 Tobacco smoking status NHIS Never smoked tobacco [facility] Start: 04-21-2018 End: 09-09-2023 Tobacco use and exposure Smokeless tobacco non-user [facility] Start: 06-05-2021 End: 09-22-2023 Alcohol intake Current drinker of alcohol (finding) [facility] Start: 04-15-2020 History SDOH Alcohol Frequency 2 [facility] Start: 04-15-2020 History SDOH Alcohol Std Drinks 1 [facility] Start: 05-10-2021 History SDOH Alcohol Comment 1-2 drinks per month [facility] Start: 05-26-2021 End: 06-05-2021 Exposure to SARS-CoV-2 (event) Not sure [facility] Start: 04-15-2020 End: 04-19-2020 History of Social function [facility] Start: 04-15-2020 End: 04-19-2020 Alcohol Use Disorder Identification Test - Consumption [AUDIT-C] [facility] How often to you hav e a drink containing alcohol? Monthly or less [facility] How many standard dr inks containing alcohol do you have on a typical day? 1 or 2 [facility] How often do you hav e 6 or more drinks on 1 occasion? Never [facility] Start: 03-16-2017 Gender identity Identifies as female gender (finding) [facility] Adolescent depressio n screening assessment 0 [facility] Start: 1994 Sex assigned at Female [facility] Start: 11-26-2023 End: 02-26-2024 Alcoholic beverage intake Ex-drinker (finding) [facility] re Start: 06-16-2023 [facility] Start: 06-29-2020 Alcohol Comment rarely [facility] Start: 10-11-2014 Sex Female (finding) [facility] Clinical Notes 06-05-2021 to 02-26-2024 María Elena Joseph MD - 02/26/2024 3:00 PM Tomas Victoria RN - 02/26/2024 3:00 PM Vicky Stephens RN - 02/26/2024 3:00 PM Krista Joseph MD - 02/18/2024 2:45 PM EST Note Date & Type Note Facility 02-26-2024 History of Present illness Narrative [facility] High Risk Obstetrics Visit Return OB CC: Scheduled OB Visit None Problem List Active Problems Ascending aorta dilation (CMS-HCC) care in third trimester - Primary Overview testing: weekly NST/DVP until delivery (see 11/[address] Crowley) Serial growth scans Transfer from [facility] Initial and 28 week labs normal. Placenta [...] Denies persistent N/V, constipation, heartburn, hematuria, dysuria Single episode n/v/heartburn Occ constipation Dilated ascending aorta and bicuspid aortic valve Denies chest pain , shortness of breath, change in ability to do ADL Control Method plan: condoms Problem List reviewed and updated PMH/PSH/FH/Soc/Meds/Allergies Reviewed PE BP 106/72 Wt 78.1 kg (172 lb 3.2 oz) LMP 06/02/2023 BMI 29.56 kg/m Alert, NAD ABdomen: Soft, NT, nondistended Cervix: 030/-3 mid soft Operations Architect: Love Wt Readings from Last 3 Encounters: 02/18/24 77.3 kg (170 lb 6.4 oz) 02/13/24 77.4 kg (170 lb 11.2 oz) 02/12/24 75.3 kg (166 lb) See flowsheet Urine dipstick shows Protein N Glucose N Imp/Plan at 38w2d Patient Active Problem List Diagnosis Bicuspid aortic valve Palpitations Ocular migraine Dizziness Congenital heart disease Ascending aorta dilation ([facility]-HCC) care in third trimester Maternal cardiovascular disease affecting in third trimester care Labor warnings/ Movement discussed Maternal cardiovascular disease (dilated ascending aorta and bicuspid aortic valve) For delivery at 39-40 weeks Continue weekly testing until delivery at [place] Assisted 2nd stage--Discussed with patient that there are risks associated with Assisted 2nd stage delivery, including injury to , increased risk of laceration for patient that can be extensive, hemorrhage. Primary also has risks including it is a major surgery--hemorrhage, infection, injury to internal organs. Risk to infant is less. In general, the risk/benefit leans towards assisted 2nd stage. At this time, she desires assisted 2nd stage labor, but wants option of if changes mind. Discussed that if waits until is deep in pelvis, that may not be reasonable. Seek testing for COVID and influenza if [...] and the clinical opinion of the practitioner. Pt is here for HROB visit at 38w3d Pt denies lof, vb, ctx Pt reports +fm Pt has no concerns at this time Urine imc-tbvhivcdne-mamtx documented in this encounter [facility] [employer] 02-18-2024 History of Present illness Narrative [facility] High Risk Obstetrics Visit Return OB CC: Scheduled OB Visit None Problem List Active Problems Bicuspid aortic valve Ascending aorta dilation ([facility]-HCC) care in third trimester - Primary Overview testing: weekly NST/DVP until delivery (see 11/[address] Crowley) [facility] and 28 week labs [...] Dizziness Congenital heart disease Ascending aorta dilation ([facility]-HCC) care in third trimester Maternal cardiovascular disease affecting in third trimester care Labor warnings/ Movement discussed Maternal cardiovascular disease with bicuspid arotic valve and dilated ascending aorta. [facility] I For assisted 2nd stage delivery Echo completed 01/13/24 Weekly testing. Being completed at [place] Serial growth scan Last done 02/13/24 Cardiac warning signs For delivery at 39 weeks with telemetry Seek testing for COVID and influenza if with URI symptoms and call if positive. RTC 1 weeks via HROB Note to patient: The Century Cures [...] some pelvis pressure documented in this encounter [facility] [employer] 02-14-2024 Note SUPPLY CONTROLLER: [facility] [address] [place] [address] PH: [phone] F: [phone] cardiology and maternal adult congenital cardiology consultation [...] suggestions, please don't hesitate to call me [phone], Sincerely, Chepe Peraza MD, [facility] Professor of Pediatric [facility] Chief, Pediatric Cardiology This note is dictated with the use of M*Modal.Please note that this dictation was completed with computer voice recognition software. Quite often unanticipated grammatical, syntax, homophones, and other interpretive errors are inadvertently transcribed by the computer software. Please disregard these errors. Please excuse any errors that have escaped final proofreading. [facility] 02-13-2024 History of Present illness Narrative Urine yic-esbdwcxdqa-aekaolzi. Pt seen today for HROB routine @ [...] Crowley) Serial growth scans Transfer from [facility] Initial and 28 week labs normal. Placenta anterior US today GBS today Echo reviewed from 02/12/24- stable but will confirm stable measurements with Dr Peraza IOL- prefers to wait until 03/08/24 RTC 1w [facility] History of Present illness Narrative REASON FOR TELEMEDICINE VIDEO OFFICE VISIT: Bicuspid aortic valves HISTORY OF PRESENT ILLNESS: Lisa Cardneas is a pleasant 29 y.o. G 1 P0 at 36w2d due on Estimated Date of Delivery: 03/08/24 . has been complicated with Bicuspid aortic valve with aortic root dilation due to bicuspid aortic valve. 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 Most recent echocardiography shows Most recent echocardiography [...] remnant in the patient. She has seen metal cut off saw tender. No future testing or ultrasound required per [...] you for allowing me to participate in [facility]. If there are any questions, please do not hesitate to call me. Sincerely, DUARTE BERNARD MD Video Visit via Real-time Synchronous Audiovisual Provider Location: [facility]- MEDICINE AT [address] [address] Patient Location: Patient's home Patient Location Chocolate Temperer: None Video Visit Consent Statement: I discussed [...] that there are some limitations compared to nyel-yh-gjkk evaluations. We elected to proceed. documented in this encounter [facility] 01-27-2024 History of Present illness Narrative [facility] Initial High Risk Obstetrics Visit Initial HROB Visit 34w1d Dated by: 8w5d US consistent with LMP Is transferring from other provider Records have been received/reviewed Patient Active Problem List Diagnosis Bicuspid aortic valve Palpitations Ocular migraine Dizziness Congenital heart disease Ascending aorta dilation ([facility]-HCC) Current Outpatient Medications on File Prior [...] patient Rh positive Last cervical cytology in [facility]- Pt reports getting on September 30, [...] candidate for vaginal delivery. Consult Dr. Peraza, multimedia production assistant at time of delivery. Delivery between 39-40w. Telemetry in labor and 24hrs PP. 2nd stage assist with forceps or vacuum (per Dr. Crowley note). Weekly DVP weekly NST starting at 32w. Growth Q4w. Next would be in 2 weeks. [facility] testing [facility]: recommends passive 2nd stage delivery [...] cardiac symptoms. E. Will reach out to [facility] for 28w labs, 1hr gtt, pap results etc Discussed with patient signs/symptoms of influenza and COVID 19 and the need to contact us so that we can evaluate and possibly start medication. RTC 2 weeks in HROB Note to patient: The Cures Act [...] Dizziness Congenital heart disease Ascending aorta dilation ([facility]-HCC) Hypothyroidism affecting care in third trimester [...] Problem List Active Problems Ascending aorta dilation (CMS-HCC) Relevant Orders US MFM with or without [...] 2 weeks HROB Note to patient: The Cures Act [...] discharge. Denies lower extremity swelling. Pulse-60 Urine vmm-iqjpksmxwr-ngpas. Oriented to office and contact information given. Verbalizes understanding. Declines RSV vaccine. documented in this encounter [facility] [employer] 01-13-2024 History of Present illness Narrative Headache/epigastric [...] echocardiography in 2020. 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 She has seen metal cut off saw tender. No future testing or ultrasound required per Endo. 4. 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 Currently the patient has no complaints. The patient denies nausea, vomiting, abdominal pain, vaginal bleeding, SOB or chest pain. Patient Active Problem List Diagnosis Bicuspid aortic valve Palpitations Ocular migraine Dizziness Congenital heart disease Ascending aorta dilation ([facility]-HCC) ALLERGIES: Allergies Allergen Reactions Doxycycline ulercative [...] Complete transfer of care To the Regional input output clerk Clinic at [facility] Services and delivery at [facility]. 4. Consult to [facility] done today 5. Continue testing at her OB office 6. Delivery at 39 or 40 weeks gestation at [facility] 7. Stable and therefore patient is still a candidate for vaginal delivery. 8. Dr. Peraza Cardiology need to be notified and consulted formally at the time of induction of labor Thank you for allowing me to participate in Lisa Cardenas care. If there are any questions, please do not hesitate to call me. Sincerely, DUARTE BERNARD MD documented in this encounter [facility] 01-13-2024 Note Lonnie Peres [address] [facility] [address] January 13, 2024 Patient: Lisa Cardenas Date [...] on a single (more content not included)... [facility] 12-30-2023 History of Present illness Narrative Reason for Appointment: Patient ID: Lisa Cardenas is a 28 y.o. female who presents for Routine Visit Patient presents today for Return OB appointment. MEDICATIONS Current Outpatient Medications Medication Instructions Vienna-3 Fatty Acids (OMEGA 3 PO) Take by [...] Lakisha Goss Jhonny Hypertension Father's Brother Tucker Casey Seizures [...] nursing note reviewed. Exam conducted with a hot stick worker present. Vitals: Estimated body mass index is [...] Sammy Peraza DO documented in this encounter [facility] 12-17-2023 History of Present illness Narrative Reason for Appointment: Patient ID: Lisa Cardenas is a 28 y.o. female who presents for Routine Visit Patient presents today for Return OB appointment. MEDICATIONS Current Outpatient Medications Medication Instructions Vienna-3 Fatty Acids (OMEGA 3 PO) Oral Vit-DSS-Fe [...] nursing note reviewed. Exam conducted with a hot stick worker present. Vitals: Estimated body mass index is [...] of: TAVIA Parsons documented in this encounter [facility] 10-07-2023 Note Lonnie Peres [address] [facility] [address] October 07, 2023 Patient: Lisa Cardenas Date [...] use. She is scheduled to fly to [place] to see her in the near future [...] Normal biventricular systoli (more content not included)... [facility] 10-07-2023 Note Outpatient echo Must use antibiotic for dental procedures May fly Passive second stage deliver in [facility] 09-22-2023 History of Present illness Narrative RFC: Patient with thyroid nodule. Most recent US showing nodule TI-RADS 3 Regan Neves, LOGISTICS PLANNING ENGINEER-* HPI: Ms. Cardenas is a 28 y.o. [...] Hyperlipidemia, Hyperthyroidism, Hypogonadism male, Hypothyroidism, Liver disease, ND (myocardial infarction), Migraine, Multinodular goiter, LADY (obstructive [...] hours as needed. lidocaine viscous-Alum & Mag Ksrkwyuhy-Gtiqhx-shlixijzsqHYCYI oral mouthwash Swish and swallow 15mL by mouth every 6 hours as needed. norgestimate-ethinyl estradiol (Sprintec 28) 0.25-35 MG-MCG tablet Take 1 tablet by mouth at bedtime. nystatin 215910 UNIT/ML oral suspension Swish and swallow 10 [...] Echogenicity: Hyperechoic or isoechoic (1 point) Shape: Xpyvv-ihoh-hvoa (0 points) Margin: Smooth (0 points) Echogenic [...] Fellow, Division of Endocrinology, Diabetes, and Metabolism [facility] [place] [address] No follow-ups on file. Patient has verified [...] Fellow, Division of Endocrinology, Diabetes, and Metabolism [facility] [address] [place] [address] documented in this encounter [facility] 09-22-2023 Instructions Latrice Hall MD - 09/22/2023 1:30 PM EDT It was great seeing you today! Division of Endocrinology Outpatient Care [facility] Follow-up appointments: Please arrive at least 20 [...] Any non-urgent results will be relayed via Epic! if you have signed up for this service or via a letter through the mail and/or phone call. Communication with your provider: - [facility] [employer] is highly recommended as the most efficient [...] your future visits: [email or web address] Patient Care section. Sincerely, Latrice Hall MD Fellow, Division of Endocrinology, Diabetes, and Metabolism [facility] [place] [address] documented in this encounter [facility] 09-22-2023 Procedure note Associated Ord er(s): CHG US SOFT TISSUE HEAD & NECK REAL TIME IMGE DOCM Ms. Cardenas was seen and examined with Dr. Hall, I independently verified the findings on US and agree with the documented report - thyroid ultrasound report appears in the notes tab. [facility] 09-22-2023 Procedure note Associated Ord er(s): CHG US SOFT TISSUE HEAD & NECK REAL TIME IMGE DOCM Ms. Cardenas was seen and examined with Dr. Hall, I independently verified the findings on US and agree with the documented report - thyroid ultrasound report appears in the notes tab. documented in this encounter [facility] 12-24-2022 History of Present illness Narrative Chief Complaint: Chief Complaint Patient presents with New Patient Reports right side of neck with questionable swelling, continues to have problems with food getting stuck. Has to wash down food with liquids. HPI: Lisa Cardenas is a 27 y.o. female smoker / non-smoker who presents 12/24/22 to the [facility] [...] 1 Bottle 0 lidocaine viscous-Alum & Mag Qglkhgxvh-Xlldlu-vhohfipnacQTBRN oral mouthwash Swish and swallow 15mL by mouth every 6 hours as needed. 240 mL 0 norgestimate-ethinyl estradiol (Sprintec 28) 0.25-35 MG-MCG tablet Take 1 tablet by mouth at bedtime. nystatin 085402 UNIT/ML oral suspension Swish and swallow 10 [...] / non-smoker who presents 12/24/22 to the [facility] [...] Laterality: Bilateral; Surgeon: Charlotte Cárdenas MD; Location: [facility] SAME DAY SURGERY MAIN OR CHOLECYSTECTOMY ROBOTIC N/A 04/06/2019 Laterality: N/A; Surgeon: Ramin Denney MD; Location[facility] MA[facility] OR WISDOM TEETH EXTRACTION Social History [...] 1 Bottle 0 lidocaine viscous-Alum & Mag Yhzbumqhr-Aorfnv-bmsqpgcyctVQDNB oral mouthwash Swish and swallow 15mL by mouth every 6 hours as needed. 240 mL 0 norgestimate-ethinyl estradiol (Sprintec 28) 0.25-35 MG-MCG tablet Take 1 tablet by mouth at bedtime. nystatin [id number] UNIT/ML oral suspension Swish and swallow 10 [...] are not concerning. documented in this encounter [facility] 11-20-2022 History of Present illness Narrative Maternal- Medicine (High Risk Obstetrics) Consultation Indication for consultation: Congenital Bicuspid aortic valve Referring Provider: Herve Jimenez MD History Lisa Cardenas is a 27yo G0 LMP 70Diu11 using nothing for contraception who presents for preconception consultation in the setting of hx congenital bicuspid aortic valve. Her history is also notable for a history of exercise induced asthma and thyroid nodule. She feels well today and has no complaints or concerns. She was recently seen by Dr. Peraza ([facility]) for preconception counseling on [...] [facility]. She does not currently have an urgent care physician. Ms. Lisa Cardenas has the following problems [...] N/A; Surgeon: Ramin Denney MD; Location: [facility] MAIN OR WISDOM TEETH EXTRACTION - [...] 1 Bottle 0 lidocaine viscous-Alum & Mag Lrlusgcoa-Htfnbz-macjizmsmpLYCJZ oral mouthwash Swish and swallow 15mL by mouth every 6 hours as needed. 240 mL 0 norgestimate-ethinyl estradiol (Sprintec 28) 0.25-35 MG-MCG tablet Take 1 tablet by mouth at bedtime. nystatin [id number] UNIT/ML oral suspension Swish and swallow 10 [...] . --. SCAN INFO ======= GENERAL SCANNER ANY COMMODITY SALES DELIVERER: Digital Guardian MODEL: [employer]up PULSE SEQUENCES: SSFP cine, HASTE morphology, 3D [...] aortic valve and has been followed by [facility]. The patient is currently asymptomatic from a cardiac standpoint, but is at risk for aortic dissection (especially given known ascending aortic dilation), heart failure, ND, and arrhythmias due to expected cardiovascular changes [...] as Marfan syndrome. The patient qualifies for [facility] risk classification II-III which confers an [...] and severity of complications: Recommendations during - PHARMACY OPERATIONS COORDINATOR referral for multi-disciplinary care coordination - Baseline [...] would be appropriate for co-managed care with [facility] for ultrasounds and visits every trimester and that she should contact and establish care obstetrical care with [facility] general urgent care physician practice once has a positive test. Thank [...] Obstetrics and Gynecology Division of Maternal Medicine [facility] documented in this encounter [facility] 06-05-2021 Instructions Charlotte Cárdenas MD - 06/05/2021 11:42 AM EDT ASSESSMENT/PLAN: Status post tonsillectomy Healing well Pathology benign Followup as needed documented in this encounter [facility] 06-05-2021 History of Present illness Narrative [...] Followup as needed documented in this encounter [facility] Evaluation note Diagnosis Postop check- Primary Follow-up examination, following unspecified surgery [facility] Encounter for preconception consultation- Primary Bicuspid aortic valve Congenital insufficiency of aortic valve [facility] Lymphadenopathy- Primary Enlargement of lymph nodes [facility] Lymphadenopathy Enlargement of lymph nodes [facility] Diagnosis Lymphadenopathy Enlargement of lymph nodes [facility] Diagnosis Thyroid nodule Nontoxic uninodular goiter [facility] Diagnosis Thyroid nodule- Primary Nontoxic uninodular goiter [facility] Diagnosis 28 weeks gestation of Third trimester state, incidental documented in this encounter [facility]* Diagnosis 30 weeks gestation of Third trimester state, incidental Aortic stenosis of mother during Hypothyroid in , antepartum (CMS/HCC) Vaginal discharge during in second trimester Encounter for screening for cervical length documented in this encounter [facility]* Diagnosis Ascending aorta dilation (CMS-HCC)- Primary Thoracic aneurysm without mention of rupture 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 [facility] Diagnosis Maternal cardiovascular disease affecting in third trimester- Primary Bicuspid aortic valve Congenital insufficiency of aortic valve Palpitations Congenital heart disease Unspecified congenital anomaly of heart Ascending aorta dilation (CMS-HCC) Thoracic aneurysm without mention of rupture Hypothyroidism affecting , antepartum 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 [facility] Diagnosis Maternal cardiovascular disease affecting in third trimester- Primary documented [facility]* Diagnosis Maternal cardiovascular disease affecting in third trimester- Primary care in third trimester [facility] Diagnosis Maternal cardiovascular disease affecting in third trimester- Primary care in third trimester Ascending aorta dilation (CMS-HCC) Thoracic aneurysm without mention of rupture Bicuspid aortic valve Congenital insufficiency of aortic valve [facility] Diagnosis Maternal cardiovascular disease affecting in third trimester- Primary care in third trimester Ascending aorta dilation (CMS-HCC) Thoracic aneurysm without mention of rupture [facility] Attachments The following attachments cannot be sent through Care Everywhere. * [facility] AMB SMOKING CESSATION LINKS [facility] in [facility]* Attachments The following attachments cannot be sent through Care Everywhere. * Control Options (Lithuanian) [facility] Reason for Referral Status Reason Specialty Diagnoses / Procedures Referred By Contact Referred To Contact New Request Diagnoses Other fatigue Lymphadenopathy of head and neck Procedures US NECK SOFT TISSUE Darryn Kennedy, MUTUEL DEPARTMENT MANAGER [address] [place] [address] Specialty Diagnoses / Procedures Referred By Emanuel t Referred To Contact Diagnoses Lymphadenopathy Procedures XR FLUORO MODIFIED BARIUM SWALLOW-ENT ONLY CHG RADIOLOGIC EXAM ESOPHAGUS SINGLE CONTRAST STUDY Regan Neves APRN-MUTUEL DEPARTMENT MANAGER [address] [place] [address] Referral ID Status Reason Start Date Expiration Date V isits Requested Visits Authorized [id number] Auth Not Needed 12/24/2022 01/18/2024 1 1 Specialty Diagnoses / Procedures Referred By Emanuel t Referred To Contact Diagnoses Lymphadenopathy Regan Neves LOGISTICS PLANNING ENGINEER-MUTUEL DEPARTMENT MANAGER [address] [place] [address] Referral ID Status Reason Start Date Expiration Date V isits Requested Visits Authorized [id number] Pending Review 12/24/2022 01/18/2024 1 1 Specialty Diagnoses / Procedures Referred By Contac t Referred To Contact Diagnoses Lymphadenopathy Procedures CT NECK WITH CONTRAST WA CT NECK TISSUE CONTRAST Regan Neves APRN-MUTUEL DEPARTMENT MANAGER [address] [place] [address] Referral ID Status Reason Start Date Expiration Date Visits Re quested Visits Authorized [id number] Closed 12/24/2022 01/18/2024 1 1 Referral ID Status Reason Start Date Expiration Date Visits Re quested Visits Authorized [id number] Closed 12/24/2022 01/18/2024 1 1 Specialty Diagnoses / Procedures Referred By Contac t Referred To Contact Diagnoses Thyroid nodule Procedures US THYROID WA US,HEAD/NECK TISSUES,REAL TIME Herve Jimenez MD [address] [place] [address] [facility] [address] [place] [address] Referral ID Status Reason Start Date Expiration Date V isits Requested Visits Authorized [id number] New Request 05/27/2023 06/20/2024 1 1 Specialty Diagnoses / Procedures Referred By Contac t Referred To Contact Diagnoses Thyroid nodule Procedures US IM[facility]ING [facility] Andres Torres MD [address] [facility] [address] [place] [address] Referral ID Status Reason Start Date Expiration Date V isits Requested Visits Authorized [id number] New Request 09/22/2023 10/16/2024 1 1 Assessments [...] section and content) DATE CREATED AUTHOR 08/07/2020 [facility] DATE CREATED AUTHOR AUTHOR'S ORGANIZ ATION 05/28/2022 [facility] DATE CREATED AUTHOR AUTHOR'S ORGANIZ ATION 05/24/2023 [facility] DATE CREATED AUTHOR AUTHOR'S ORGANIZ ATION 09/26/[address] [facility] DATE CREATED AUTHOR AUTHOR'S ORGANIZ ATION 12/17/2023 [facility] DATE CREATED AUTHOR AUTHOR'S ORGANIZ ATION 01/28/2024 [facility] EPIC DATE CREATED AUTHOR AUTHOR'S ORGANIZ ATION 02/17/[address] [facility] DATE CREATED AUTHOR AUTHOR'S ORGANIZ ATION 03/01/2024 [facility] Reason for Visit (unrecogniz ed section and [...] W/O FOL W/CONT, CHEST Chepe Peraza MD [address] [place] [address] [facility] [address] [place] [address] Referral ID Status Reason Start Date Expiration Date V isits Requested Visits Authorized [id number] Auth Not Needed 05/29/2022 06/23/2023 1 1 [...] MD [address] [place] [address] Referral ID Status Reason Start Date Expiration Date Visits Re quested Visits Authorized [id number] Closed 12/24/2022 01/18/2024 1 1 Specialty Diagnoses / Procedures Referred By Contac t Referred To Contact Diagnoses Lymphadenopathy Procedures CT NECK WITH CONTRAST WA CT NECK TISSUE CONTRAST Regan Neves, LOGISTICS PLANNING ENGINEER-MUTUEL DEPARTMENT MANAGER [address] [place] [address] Referral ID Status Reason Start Date Expiration Date Visits Re quested Visits Authorized [id number] Closed 12/24/2022 01/18/2024 1 1 Specialty Diagnoses / Procedures Referred By Contac t Referred To Contact Diagnoses Lymphadenopathy Procedures XR FLUORO MODIFIED BARIUM SWALLOW-ENT ONLY CHG RADIOLOGIC EXAM ESOPHAGUS SINGLE CONTRAST STUDY Regan Neves, LOGISTICS PLANNING ENGINEER-MUTUEL DEPARTMENT MANAGER [address] [place] [address] Referral ID Status Reason Start Date Expiration Date Visits Re quested Visits Authorized [id number] Closed 12/24/2022 01/18/2024 1 1 Specialty Diagnoses / Procedures Referred By Contac t Referred To Contact Diagnoses Thyroid nodule Procedures US THYROID WA US,HEAD/NECK TISSUES,REAL TIME Herve Jimenez MD [address] [place] [address] [facility] [address] [place] [address] Referral ID Status Reason Start Date Expiration Date V isits Requested Visits Authorized [id number] New Request 05/27/2023 06/20/2024 1 1 Reason Comments Thyroid Nodule Specialty Diagnoses / Procedures Referred By Contac t Referred To Contact Endocrinology, Diabetes & Metabolism Diagnoses Thyroid nodule Regan Neves, LOGISTICS PLANNING ENGINEER-MUTUEL DEPARTMENT MANAGER [address] [place] [address] Referral ID Status Reason Start Date Expiration Date V isits Requested Visits Authorized [id number] Pending Review 06/04/2023 06/28/2024 1 1 Reason Comments Routine Visit Reason Comments aortic root dilation aortic stenosis Reason Comments Routine Visit Specialty Diagnoses / Procedures Referred By Contac t Referred To Contact Obstetrics & Gynecology / Obstetrics and Gynecology Diagnoses Ascending aorta dilation ([facility]) 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 Duarte Bernard MD [address] [place] [address] Phone: tel: fax: [facility] [address] [place] [address] Phone: tel: fax: Referral ID Status Reason Start Date Expiration Date Visits Requested Visits Authorized [id number] Pending Review Specialty Services Required 01/13/2024 01/12/2025 1 1 Reason Comments High Risk Gestation Reason Comments High Risk Gestation Routine Visit Reason Comments Routine Visit High Risk Gestation Care Teams (unrecognized sec tion and content) Instructor Psychiatric Aide Relationship Specialty Start Date End Date Herve Jimenez MD [address] [address] PCP - General Family Medicine 09/23/19 Chepe Peraza MD [address] [place] [address] [facility] 04/30/21 Instructor Psychiatric Aide Relationship Specialty Start Date End Date Herve Jimenez MD [address] [place] [address] PCP - General Family Medicine 09/23/19 Chepe Peraza MD [address] [place] [address] [facility] 04/30/21 Instructor Psychiatric Aide Relationship Specialty Start Date End Date Herve Jimenez MD [address] [place] [address] PCP - General Family Medicine 09/23/19 Chepe Peraza MD [address] [place] [address] [facility] 04/30/21 Instructor Psychiatric Aide Relationship Specialty Start Date End Date Herve Jimenez MD [address] [place] [address] PCP - General Family Medicine 09/23/19 Chepe Peraza MD [address] [place] [address] [facility] 04/30/21 Instructor Psychiatric Aide Relationship Specialty Start Date End Date Herve Jimenez MD [address] [place] [address] PCP - General Family Medicine 09/23/19 Chepe Peraza MD [address] [place] [address] [facility] 04/30/21 Instructor Psychiatric Aide Relationship Specialty Start Date End Date Herve Jimenez MD [address] [place] [address] PCP - General Family Medicine 09/23/19 Chepe Peraza MD [address] [place] [address] [facility] 04/30/21 Instructor Psychiatric Aide Relationship Specialty Start Date End Date Herve Jimenez MD [address] [place] [address] PCP - General Family Medicine 09/23/19 Chepe Peraza MD [address] [place] [address] [facility] 04/30/21 Instructor Psychiatric Aide Relationship Specialty Start Date End Date Herve Jimenez MD [address] [address] PCP - General Family Medicine 09/23/19 Chepe Peraza MD [address] [place] [address] [facility] 04/30/21 Instructor Psychiatric Aide Relationship Specialty Start Date End Date Herve Jimenez MD [address] [place] [address] PCP - General Family Medicine 06/29/20 Instructor Psychiatric Aide Relationship Specialty Start Date End Date Herve Jimenez MD [address] [address] PCP - General Family Medicine 06/29/20 Instructor Psychiatric Aide Relationship Specialty Start Date End Date Herve Jimenez MD [address] [address] PCP - General Family Medicine 06/29/20 Instructor Psychiatric Aide Relationship Specialty Start Date End Date Herve Jimenez MD [address] [place] [address] PCP - General Family Medicine 06/29/20 Instructor Psychiatric Aide Relationship Specialty Start Date End Date Herve Jimenez MD [address] [place] [address] PCP - General Family Medicine 06/29/20 FOR [...] BE BASED ON THE PRIMARY CLINICAL RECORDS. [facility] [employer] [facility]. provides no warranty or guarantee of the accuracy or completeness of information in this document.
[2024-03-04 10:21] VITALS: BP 122/76; PULSE 74
== END 2024-03-04 10:50 | disposition home or self-care (01) ==
LOC: FBCO 02:55 → FBC 09:59
PROVIDERS: Visit Provider Obstetrics & Gynecology
DX: O26.893 Other specified pregnancy related conditions, third trimester (principal); Z3A.39 39 weeks gestation of pregnancy
CPT/HCPCS: 76818

== ENCOUNTER 2024-05-04 13:59 | Outpatient (RCR) | payer OTHER, SELFPAY | END 2024-06-10 07:13 | disposition home or self-care (01) | LOC: PT 13:59 | PROVIDERS: Visit Provider Physician Assistant | DX: N81.84 Pelvic muscle wasting (principal) | CPT/HCPCS: 97110; 97112; 97161 ==

== ENCOUNTER 2024-08-19 08:05 | Outpatient (REF) | payer OTHER, SELFPAY ==
--- OUTSIDE RECORDS SUMMARY | 2024-08-25 08:09 | XMS_ITS | CCD ---
Author Organization [facility] Care Team Providers Care Bariatric Physician Name Role Phone Unavailable Unavailable Unavailable Herve Jimenez MD Primary Care Provider Chepe Peraza MD Unavailable Herve Jimenez MD Primary Care Unavail able Cristian DORADO, Jake Og Attending UnavailHerve Chiang MD Primary Care Unavail able Cristian DORADO, Jake Og Attending Unavailvero Foster MD, Jake Og Attending UnavailHerve Chiang MD Primary Care Unavail able Herve Jimenez MD Primary Care Provider Chepe Peraza MD Unavailable Herve Jimenez MD Primary Care Provider HERVE JIMENEZ Attending Unavailable Chepe Peraza MD Unavailable [phone] LATRICE HALL Attending Unavailable BARBARA HERVE [...] Referring Unavailable FRUREANNA, DARRYN Primary Care Unavailable BISMARKMONICA Attending Unavailable Unavailable Primary Care Provider Unavailfaith Jimenez MD, Herve Morejon Primary Care Provider SAMMY PERAZA Referring Unavailable SHOEMAKER, HERVE KENYA Primary Care Unavailabl e DUARTE BERNARD Attending Unavailable THERESE GLEASON Referring Unavailable SHOEMAKER, HERVE KENYA Primary Care Unavailabl e CHEPE PERAZA Referring Unavailable SHOEMAKER, HERVE KENYA Primary Care Unavailabl e SAMMY PERAZA Referring Unavailable SHOEMAKER, HERVE KENYA Primary Care Unavailabl e SANTI CROWLEY Attending Unavailable MARÍA ELENA JOSEPH Referring Unavailabl e SHOEMAKER, HERVE KENYA Primary Care Unavailabl e CHEPE PERAZA Referring Unavailable SHOEMAKER, HERVE KENYA Primary Care Unavailabl e SAMMY PERAZA Referring Unavailable SHOEMAKER, HERVE KENYA Primary Care Unavailabl e DUARTE BERNARD Attending Unavailable SAMMY PERAZA Referring Unavailable SHOEMAKER, HERVE KENYA Primary Care Unavailabl e SHOEMAKER, HERVE KENYA Referring Unavailabl e SHOEMAKER, HERVE KENYA Primary Care Unavailabl e DUARTE BERNARD Attending Unavailable SAMMY PERAZA Referring Unavailable SHOEMAKER, HERVE KENYA Primary Care Unavailabl e CHEPE PERAZA Referring Unavailable SHOEMAKER, HERVE KENYA Primary Care Unavailabl e SHOEMAKER, HERVE KENYA Referring Unavailabl e SHOEMAKER, HERVE KNEYA Primary Care Unavailabl e SHOEMAKER, HERVE KENYA Referring Unavailabl e SHOEMAKER, HERVE KENYA Primary Care Unavailabl e KORTNEY SPARROW Referring Unavail able SHOEMAKER, HERVE KENYA Primary Care Unavailabl e SHOEMAKER, HERVE KENYA Referring Unavailabl e SHOEMAKER, HERVE KENYA Primary Care Unavailabl e SHOEMAKER, HERVE KENYA Referring Unavailabl e SHOEMAKER, HERVE KENYA Primary Care Unavailabl e KORTNEY SPARROW Attending Unavailable HERVE JIMENEZ Referring Unavailabl e BARBARA, HERVE KENYA Primary Care Unavailabl KORTNEY Nair Attending Unavailable BARBARA HERVE KENYA Referring Unavailabl e BARBARA, HERVE KENYA Primary Care Unavailabl e EULOGIO GARCIA Admitting Unavailable EULOGIO GARCIA Attending Unavailable HERVE JIMENEZ Primary Care Unavailabl e BAO GARCIA Consulting Unavailable [facility] Consulting Unavailable HERVE JIMENEZ Referring Unavailabl e BARBARA, HERVE KENYA Primary Care Unavailabl e LIZET WILLIS Attending Unavailable HERVE JIMENEZ Primary Care Unavailabl e Unavailable Primary Care Provider Unavailfaith PERAZA, CHEPE Attending Unavailable PERAZA, CHEPE Attending Unavailable PERAZA, CHEPE Attending Unavailable BONNIE, ELLA Attending Unavailable DI PANCHAL Attending Unavailable STU, SAMMY Attending Unavailable STU, SAMMY Attending Unavailable BONNIE, ELLA Attending Unavailable STU, SAMMY Attending Unavailable BONNIE, ELLA Attending Unavailable BONNIE, ELLA Attending Unavailable STU, SAMMY Attending Unavailable BONNIE, ELLA Attending Unavailable STU, SAMMY Attending Unavailable Allergies Allergy Classification Reported Allergen(s) Allergy Type Date of Onset Reaction(s) Facility (20 sources) Amoxicillin; Translations: [amoxicillin] Drug Allergy 04-14-19 13 Rash, Unknown [facility] Work Phone: (20 sources) Clarithromycin; Translations: [clarithromycin] Drug Allergy 10-07-19 16 Rash [facility] Work Phone: (20 sources) Clindamycin; Translations: [clindamycin] Drug Allergy 03-16-19 18 [facility] Work Phone: (20 sources) Doxycycline; Translations: [doxycycline] Drug Allergy 04-14-19 13 Unknown [facility] Work Phone: (20 sources) Clarithromycin Propensity to adverse reactions to drug 10-07-19 16 Rash, Unknown [facility] Work Phone: (20 sources) Erythromycin; Translations: [ERYTHROMYCIN] Drug Allergy 04-14-19 13 [facility] (20 sources) Spironolactone; Translations: [SPIRONOLACTONE] Drug Allergy 05-27-19 24 Dizziness [facility] (20 sources) Clindamycin/Lincom ycin Drug Intolerance 07-13-19 15 Unknown [facility] (12 sources) Lincomycin; Translations: [LINCOMYCIN] Drug Allergy 07-13-19 15 [facility] (1 source) Spironolactone Drug Allergy 09-09-19 24 [facility] Current Medications Medication Drug Class(es) Dates Sig (Normalized) Sig (Original) acetaminophen 500 mg oral tablet (5 sources) Start: 03-14-2024 take 2 tablets by mouth every eight hours as needed for pain acetaminophen (TYLENOL EXTRA STRENGTH) 500 mg tablet Take 2 tablets (1,000 mg total) by mouth every 8 (eight) hours as needed for pain. 30 tablet 03/14/2024 Active Start: 03-13-2024 take 1 tablet by iveth th every four hours as needed for pain Start: 03-12-2024 take 1 tablet by iveth th every eight hours as needed for pain 1,000 mg, oral, Every 8 hours PRN, moderate pain - pain scale 4-6, Starting on Fri03/12/24 at 2224 alpha-tocopherol acetate 30 unt / ascorbic acid [...] / zinc oxide 20 mg oral tablet (20 sources) Vitamin B12, Vitamin D, Vitamin C Start: 11-20-2022 take 1 tablet by mouth in the morning Vit-DSS-Fe Fum-FA ( 19) tablet Take 1 tablet by mouth in the morning. 11/20/2022 Active Start: 11-20-2022 take 1 tablet by iveth th once daily Vit-DSS-Fe Fum-FA ( 19) tablet Take 1 tablet by mouth daily. 90 tablet 3 11/20/2022 Active benzocaine 200 mg/ml / menthol 5 mg/ml topical spray (1 source) Standardized Chemical Allergen Start: 03-13-2024 bisacodyl 10 mg rectal suppository (1 source) Stimulant Laxative Start: 03-13-2024 1 ml carboprost 0.25 mg/ml injection (1 source) Prostaglandin Analog Start: 03-12-2024 docosahexaenoic acid 120 mg / eicosapentaenoic acid 180 mg oral capsule (11 sources) omega-3 1000 MG capsule capsule Active docusate sodium 100 mg oral capsule (4 sources) Start: 03-13-2024 take 1 capsule by mouth in the morning, then take 1 capsule by mouth at bedtime docusate sodium (COLACE) 100 mg capsule Take 1 capsule (100 mg total) by mouth in the morning and 1 capsule (100 mg total) before bedtime. 60 capsule 03/14/2024 Active ethinyl estradiol 0.035 mg / norgestimate 0.25 mg oral tablet (8 sources) Progestin, Estrogen take 1 tablet by mouth at bedtime norgestimate-ethin yl estradiol (Sprintec 28) 0.25-35 MG-MCG tablet Take 1 tablet by mouth at bedtime. Active hydrocortisone 25 mg/ml topical cream (1 source) Corticosteroid Start: 03-13-2024 ibuprofen 800 mg oral tablet (4 sources) Nonsteroidal Anti-inflammatory Drug Start: 03-12-2024 take 1 tablet by mouth every eight hours as needed ibuprofen (MOTRIN) 800 mg tablet Take 1 tablet (800 mg total) by mouth every 8 (eight) hours as needed (cramping). 30 tablet 03/14/2024 Active lanolin 1000 mg/ml topical cream (1 source) Start: 03-13-2024 lidocaine viscous 80 mL, diphenhydrAMINE (BENADRYL) 80 mL, alum/mag hydrox.-simethicone 80 mL mouthwash (8 sources) Start: 05-22-2021 take 15 mL transmucosal route every six hours as needed lidocaine viscous 80 mL, diphenhydrAMINE (BENADRYL) 80 mL, alum/mag hydrox.-simethicon e 80 mL mouthwash Swish and swallow 15 mL every 6 hours as needed. 1 Bottle 05/22/2021 Active Start: 05-22-2021 take 15 mL transmuco ashia route every six hours as needed lidocaine viscous 80 mL, diphenhydrAMINE (BENADRYL) 80 mL, alum/mag hydrox.-simethicone 80 mL mouthwash Swish and swallow 15 mL every 6 hours as needed. 1 Bottle 0 05/22/2021 Active lidocaine viscous-Alum & Mag Uvztlxwqv-Smgqpy-pzadpsbaexPSBIR oral mouthwash (8 sources) Start: 05-22-2021 take 15 mL by mouth every six hours as needed lidocaine viscous-Alum & Mag Qypvbpbau-Vytfrw-otblupcsscZIDDP oral mouthwash Swish and swallow 15mL by mouth every 6 hours as needed. 240 mL 05/22/2021 Active Start: 05-22-2021 take 15 mL by mouth every six hours as needed lidocaine viscous-Alum & Mag Oyhrhevjv-Innggj-ashbcltyofWFCQQ oral mouthwash Swish and swallow 15mL by mouth every 6 hours as needed. 240 mL 0 05/22/2021 Active 1 ml methylergonovine maleate 0.2 mg/ml injection (1 source) Ergot Derivative Start: 03-12-2024 miSOPROStol 0.2 mg oral tablet (1 source) Prostaglandin E1 Analog Start: 03-12-2024 nystatin 094159 unt/ml oral suspension (8 sources) Polyene Antifungal Start: 05-16-2021 take 10 mL by mouth four times daily nystatin 267299 UNIT/ML oral suspension Swish and swallow 10 mL 4 times daily. 280 mL 05/16/2021 Active [place]-3 Fatty Acids (OMEGA 3 PO) (20 sources) [place]-3 Fatty Acids (OMEGA 3 PO) Take by mouth Active [...] to 7 days. 20 tablet 05/22/2021 Active 1 ml oxytocin 10 unt/ml injection (1 source) Oxytocic Start: 03-12-2024 polyethylene glycol 3350 88206 mg powder for oral solution (1 source) Osmotic Laxative Start: 03-13-2024 17 g, oral, Daily, First dose on Fri03/13/24 at 0900, Look-alike/sound-a like medication - verify indication for use. Dissolve 1 packet (17 gm) in 8 ounces of water, juice, soda, coffee or tea. no115/iron/folic acid ( 19 ORAL) (8 sources) no115/iron/folic acid ( 19 ORAL) Take by mouth. Suspended no115/i you/folic acid ( 19 ORAL) Take by mouth. no115/i you/folic acid ( 19 ORAL) Take by mouth. Active 125 ml sodium chloride 9 mg/ ml prefilled syringe (3 sources) Start: 03-13-2024 Start: 03-13-2024 take 3 mL intravenou sly every eight hours 3 mL, intravenous, Every 8 hours, First dose on 03/13/24 at 0030, Flush peripheral line per protocol Start: 12-24-2022 End: 12-24-2022 Sodium chloride (PF) 0.9 % injection 1-100 mL 10 ml tranexamic acid 100 mg /ml injection (1 source) Antifibrinolytic Agent Start: 03-12-2024 witch missy 500 mg/ml medica dawn pad (1 source) Start: 03-13-2024 Completed/Discontinued Medications Medication Drug Class(es) Dates Sig (Normalized) Sig (Original) Barium Sulfate (VARIBAR THIN LIQUID) 40 % 50 mL (1 source) Start: 01-09-2023 End: 01-09-2023 Barium Sulfate (VARIBAR THIN LIQUID) 40 % 50 mL calcium chloride 0.0014 meq/ml / potassium chloride 0.004 meq/ml / sodium chloride 0.103 meq/ml / sodium lactate 0.028 meq/ml injectable solution (2 sources) Start: 03-12-2024 End: 03-12-2024 take 20 mL intravenously every hour 20 mL/hr, intravenous, Continuous, Starting on Fri03/12/24 at 0830, For 1 day diphenhydrAMINE (1 source) Histamine-1 Receptor Antagonist Start: 03-12-2024 End: 01-03-2025 25 mg, intravenous, Once, On Fri03/12/24 at 1915, For 1 dose, Look-alike/sound -alike medication - verify indication for use. 2 ml famotidine 10 mg/ml injection (6 sources) Histamine-2 Receptor Antagonist Start: 03-12-2024 End: 03-12-2024 take 20 mg intravenously every twelve hours as needed 20 mg, intravenous, Every 12 hours PRN, nausea vomiting, Starting on Fri03/12/24 at 1759, Dilute to total volume of 5 mL with 0.9% sod chl and administer IVP over 2 minutes. take 1 tablet by iveth th once daily as needed for gastroesophageal reflux disease famotidine (PEPCID) 10 mg tablet Take 1 tablet (10 mg total) by mouth daily as needed for heartburn. Active fentaNYL (PF) 2 mcg/mL - bupivacaine 0.1% in sodium chloride 0.9 % PIEB with PCEA (epidural) (1 source) Start: 03-12-2024 End: 03-12-2024 epidural, Continuous, Starti ng on Fri03/12/24 at 0445, L&D Pre-Delivery, PIEB Trial, TTH only Pump programming and rate changes to be done by Anesthesia Prescriber ONLY. NO additional IM, IV, or oral opiates, sedatives, or hypnotics unless approved by Anesthesia. All additives must be preservative free. RN may discontinue epidural infusion post-procedure/delivery. RN may remove Epidural Catheter post-procedure / delivery unless otherwise specified FOR EPIDURAL USE ONLY Look-alike/sound-alike medication - verify indication for use., LOADING (Bolus) Dose: None, INTERMITTENT Bolus Dose: 10 mL, INTERMITTENT Bolus Dose Interval: 45 min, PCEA Dose: 5 mL, Lock out Interval: 10 min, One Hour Dose Limit: 40 mL iohexol (OMNIPAQUE) 350 MG/ML injection 1-171 mL (1 source) Start: 12-24-2022 End: 12-24-2022 iohexol (OMNIPAQUE) 350 MG/M L injection 1-171 mL 1 ml nalbuphine hydrochloride 10 mg/ml injection (1 source) Opioid Agonist/Antago nist Start: 03-12-2024 End: 03-12-2024 5 mg, intravenous, Once, On Fri03/12/24 at 0215, For 1 dose, Look-alike/sound-alike medication - verify indication for use. oxytocin (PITOCIN) bolus from bag solution 10 Units (1 source) Start: 03-12-2024 End: 03-12-2024 10 Units, intravenous, Administer over 30 Minutes, Once as needed, post-delivery hemostasis, Starting on Fri03/12/24 at 0202, For 1 dose, , Administer via programmable pump with lactated ringers solution oxytocin (PITOCIN) infusion 30 units/500 mL in lactated ringers (0.06 units/mL premix) (2 sources) Start: 03-12-2024 End: 03-12-2024 1-20 mariela-units/min (1-20 mL/hr), intravenous, Titrated, Starting on Fri03/12/24 at 0215, L&D Pre-Delivery, Administer via programmable infusion pump. Starting rate is 1 milliunit/minute.Titrate by 1 milliunit/min every 30 minutes until 5 or less contractions occur in a 10 minute segment, averaged over a 30 minute period. Discontinue infusion for the following abnormal FHR tracings: -Category 3 FHR -Category 2 FHR with significant decelerations for greater than 50% of contractions, lasting longer than 60 minutes despite conservative therapeutic interventions -Minimal variability without accelerations that persist for 60 minutes despite conservative therapeutic interventions -Prolonged deceleration not resolved with conservative therapeutic interventions *Tachysystole is defined by the NICHD as more than five contractions in ten minutes, averaged over a 30-minute window., When Tachysystole is present while oxytocin is infusing, and heart rate (FHR) tracing is: Category 1: 1. Perform a maternal position change and give IV bolus of Lactated Ringers 500mL at a rate of 968 mLs/hour for a max of 1,000 mLs, observe for ten minutes. 2. If tachysystole continues, then decrease oxytocin rate by half, observe for 20 minutes, and notify provider. 3. If tachysystole does not resolve, discontinue oxytocin and notify provider. Category 2 with moderate variability and no significant decelerations: 1. Decrease oxytocin rate by half, change maternal position, give IV bolus of Lactated Ringers 500mL at a rate of 968 mLs/hour for a max of 1000 mLs, observe for 20 minutes, and notify provider. 2. If tachysystole does not resolve, discontinue oxytocin and notify provider. Category 2 with significant decelerations or Category 3: 1. Discontinue oxytocin, change maternal position, give IV bolus of Lactated Ringers 500mL at a rate of 968 mLs/hour for a max of 1000 mLs, administer oxygen via non-rebreather mask at 10L, and notify provider. If after at least a 30-minute period of observation, tachysystole resolves and pre-oxytocin checklist criteria is met, may restart oxytocin infusion at: Half of last infusing rate if oxytocin is off for less than 40 minutes. Beginning rate if oxytocin is off for greater than 40 minutes. [Maximum dose 20 milliunits/min unless specifically ordered otherwise by provider]. 1 mL/hour = 1 mariela-unit/min Start: 03-12-2024 42 mariela-units /min (42 mL/hr), intravenous, Continuous PRN, for post-delivery hemostasis, Starting on Fri03/12/24 at 0202, Administer for 4 hours. Administer via programmable pump with lactated ringers solution 1 mL/hour = 1 mariela-unit/min Problems Active Problems Problem Classification Problem Date Documented Date Episodic/Chronic Abdominal pain (1 source) Unspecified abdominal pain; Translations: [Unspecified abdominal pain] Onset: 12-09-2023 Episodic Acute and chronic tonsillitis (8 sources) Chronic tonsillitis; Translations: [Chronic tonsillitis] Onset: 03-19-2021 03-19-2021 Chronic Aortic; peripheral; and visceral artery aneurysms (15 sources) Ascending aorta dilatation; Translations: [Thoracic aortic ectasia] Onset: 05-21-2022 02-26-2024 Chronic Asthma (6 sources) Asthma; Translations: [Unspecified asthma, uncomplicated] Onset: 11-20-2022 11-20-2022 Chronic Cardiac and circulatory congenital anomalies (20 sources) Bicuspid aortic valve; Translations: [Congenital insufficiency of aortic valve] Onset: 07-15-2017 11-20-2022 Chronic Contraceptive and procreative management (10 sources) Patient encounter status; Translations: [Encounter for [...] conditions other than malignant neoplasm] Episodic Other and unspecified benign neoplasm (2 sources) Melanocytic nevus of trunk; Translations: [Melanocytic nevi of trunk] 06-07-2024 Episodic Other and unspecified benign neoplasm (2 sources) Melanocytic nevi of other parts of face; Translations: [Benign neoplasm of skin of other and unspecified parts of face] 06-07-2024 Episodic Other and unspecified benign neoplasm (2 sources) Neoplasm of skin of upper arm; Translations: [Other benign neoplasm of skin of right upper limb, including shoulder] 06-07-2024 Episodic Other and unspecified benign neoplasm (2 sources) Dermatofibroma of right lower limb; Translations: [Other benign neoplasm of skin of right lower limb, including hip] 06-07-2024 Episodic Other and unspecified benign neoplasm (2 sources) Dermatofibroma; Translations: [Other benign neoplasm of skin, unspecified] 06-07-2024 Episodic Other and unspecified benign neoplasm (2 sources) Dermatofibroma of left lower limb; Translations: [Other benign neoplasm of skin of left lower limb, including hip] 06-07-2024 Episodic Other complications of (2 sources) Cardiac disease in ; Translations: [Diseases of the circulatory system complicating , unspecified trimester] 12-30-2023 Episodic Other complications of (2 sources) Vaginal discharge; Translations: [Other specified related conditions, second trimester] 12-30-2023 Episodic Other complications of (10 sources) Disorder of cardiovascular system; Translations: [Diseases of the circulatory system complicating , third trimester] Onset: 01-26-2024 02-26-2024 Episodic Other complications of (1 source) Diseases of the circulatory system complicating , third trimester; Translations: [Diseases of the circulatory system complicating , third trimester] Onset: 02-18-2024 Episodic Other complications of (1 source) Endocrine, nutritional and metabolic diseases complicating , unspecified trimester; Translations: [Endocrine, nutritional and metabolic diseases complicating , unspecified trimester] Onset: 01-26-2024 Episodic Other and delivery including normal (20 sources) Third trimester ; Translations: [Encounter for supervision of normal , unspecified, third trimester] Onset: 01-26-2024 12-17-2023 Episodic Other skin disorders (2 sources) Seborrheic keratosis; Translations: [Other seborrheic keratosis] 06-07-2024 Episodic Residual codes; unclassified (2 sources) Gestation period, 28 weeks; Translations: [28 weeks gestation of ] 12-17-2023 Episodic Residual codes; unclassified (2 sources) Gestation period, 30 weeks; Translations: [30 weeks gestation of ] 12-30-2023 Episodic Residual codes; unclassified (2 sources) Gestation period, 32 weeks; Translations: [32 weeks gestation of ] 01-14-2024 Episodic Residual codes; unclassified (2 sources) Gestation period, 34 weeks; Translations: [34 weeks gestation of ] 01-26-2024 Episodic Thyroid disorders (13 sources) Thyroid nodule; Translations: [Nontoxic single thyroid nodule] Onset: 11-20-2022 11-20-2022 Chronic Unclassified (1 source) Scheduled Induction Onset: 03-11-2024 Unclassified (1 source) High Risk Gestation Onset: [...] Residual codes; unclassified (2 sources) Gestation period, 21 weeks; Translations: [21 weeks gestation of ] 10-30-2023 Episodic Residual codes; unclassified (1 source) 24 weeks gestation of ; Translations: [24 weeks gestation of ] Onset: 11-18-2023 Episodic NEGATED: Highlighted row has been ruled out!Unclassified (20 sources) No known active problems 05-27-2023 Results Test Name Value Interpretation Reference Range Facility 29on 06-15-2024 29 Addended by: RAMIRO HAGER on: 06/17/2024 01:56 PM Modules accepted: Orders [facility] 37on 06-15-2024 37 Exam, EKG and Vital are all great Continue to use antibiotics for dental ECHO in summer (August) follow-up in one year unless things change) [facility] Office Visiton 06-15-2024 Follow-up visit [id number] Lisa Cardenas 1995 F Date Provider Department Center 06/15/2024 CHEPE GOODSON No family history on file Level of Service:23815 [place] OFFICE/OUTPATIEN T ESTABLISHED MOD MDM 30 MIN Reason for Visit and Comments: Follow-up [423887] [facility] CBC AND AUTO DIFFon 03-13-19 25 ABSOLUTE BASOPHIL 0.1 X10E9/L Normal 0.0-0.[address] [facility] Comment on above: Performed By: #### C MP, CBCA #### [facility] ([id number]) [address], [address] [place] [address] ABSOLUTE NEUTROPHIL 11.4 X10E9/L High 1.5-6.[address] [facility] Comment on above: Performed By: #### C MP, CBCA #### [facility] ([id number]) [address], [address] [place] [address] Basophils/100 WBC (Bld) 0.3 % Normal P [facility] Comment on above: Performed By: #### C MP, CBCA #### [facility] ([id number]) [address], [address] [place] [address] Eosinophils (Bld) [#/Vol] 0.1 10*3/uL Normal 0.0-0.4 [facility] Comment on above: Performed By: #### C MP, CBCA #### [facility] ([id number]) [address], [address] [place] [address] Eosinophils/100 WBC (Bld) 1.0 % Normal [facility] Comment on above: Performed By: #### C MP, CBCA #### [facility] ([id number]) [address], [address] [place] [address] Erythrocyte distribution wid th (RBC) [Ratio] 13.9 % Normal 11.5-15.0 [facility] Comment on above: Performed By: #### C MP, CBCA #### [facility] ([id number]) [address] [place] [address] Hematocrit (Bld) [Volume fraction] 29.8 % Low 35-47 [facility] Comment on above: Performed By: #### C MP, CBCA #### [facility] ([id number]) [address] [place] [address] Hemoglobin (Bld) [Mass/Vol] 10.3 g/dL Low 11.7-15. 5 [facility] Comment on above: Performed By: #### C MP, CBCA #### [facility] ([id number]) [address] [place] [address] Lymphocytes (Bld) [#/Vol] 2.1 10*3/uL Normal 1.0-3.5 [facility] Comment on above: Performed By: #### C MP, CBCA #### [facility] ([id number]) [address], [address] [place] [address] Lymphocytes/100 WBC (Bld) 14.3 % Normal [facility] Comment on above: Performed By: #### C MP, CBCA #### [facility] ([id number]) [address], [address] [place] [address] MCH (RBC) [Entitic mass] 30.0 pg Normal 27-34 [facility] Comment on above: Performed By: #### C MP, CBCA #### [facility] ([id number]) [address], [address] [place] [address] MCHC (RBC) [Mass/Vol] 34.4 g/dL Normal 32-[address] [facility] Comment on above: Performed By: #### C MP, CBCA #### [facility] ([id number]) [address] [facility] [address] [place] [address] MCV (RBC) [Entitic vol] 87 fL Normal 80-100 P [facility] Comment on above: Performed By: #### C MP, CBCA #### [facility] ([id number]) [address], [address] [place] [address] Monocytes (Bld) [#/Vol] 1.1 10*3/uL High 0-0.9 [facility] Comment on above: Performed By: #### C MP, CBCA #### [facility] ([id number]) [address], [address] [place] [address] Monocytes/100 WBC (Bld) 7.2 % Normal P [facility] Comment on above: Performed By: #### C MP, CBCA #### [facility] ([id number]) [address], [address] [place] [address] Neutrophils/100 WBC (Bld) 77.2 % Normal [facility] Comment on above: Performed By: #### C MP, CBCA #### [facility] ([id number]) [address], [address] [place] [address] Platelet mean volume (Bld) [Entitic vol] 9.4 fL Normal 7-12 [facility] Comment on above: Performed By: #### C MP, CBCA #### [facility] ([id number]) [address], [address] [place] [address] Platelets (Bld) [#/Vol] 145 10*3/uL Low 150-450 [facility] Comment on above: Performed By: #### C MP, CBCA #### [facility] ([id number]) [address], [address] [place] [address] RBC COUNT 3.42 X10E12/L Low 3.80-5.20 [facility] Comment on above: Performed By: #### C MP, CBCA #### [facility] ([id number]) [address], [address] [place] [address] WBC (Bld) [#/Vol] 14.8 10*3/uL High 4.0-11.0 [facility] Comment on above: Performed By: #### C MP, CBCA #### [facility] ([id number]) [address], [address] [place] [address] CBC auto differentialon 0 Basophils (Bld) [#/Vol] 0.1 10*3/uL [facility] Basophils/100 WBC (Bld) 0.3 % [facility] Eosinophils (Bld) [#/Vol] 0.1 10*3/uL [facility] Eosinophils/100 WBC (Bld) 1 % [facility] Erythrocyte distribution wid th (RBC) [Ratio] 13.9 % 11.5 - 15.0 % [facility] Hematocrit (Bld) [Volume fraction] 29.8 % Low 35 - 47 % [facility] Hemoglobin (Bld) [Mass/Vol] 10.3 g/dL Low 11.7 - 15.5 g/dL [facility] Interpretation and review of laboratory results Abnormal [facility] Lymphocytes (Bld) [#/Vol] 2.1 10*3/uL [facility] Lymphocytes/100 WBC (Bld) 14.3 % [facility] MCH (RBC) [Entitic mass] 30 pg 27 - 34 pg [facility] MCHC (RBC) [Mass/Vol] 34.4 g/dL 32 - 3 6 g/dL [facility] MCV (RBC) [Entitic vol] 87 fL 80 - 100 fL [facility] Monocytes (Bld) [#/Vol] 1.1 10*3/uL High [facility] Monocytes/100 WBC (Bld) 7.2 % P [facility] Neutrophils (Bld) [#/Vol] 11.4 10*3/uL High [facility] Neutrophils/100 WBC (Bld) 77.2 % [facility] Platelet mean volume (Bld) [Entitic vol] 9.4 fL 7 - 12 fL [facility] Platelets (Bld) [#/Vol] 145 10*3/uL [facility] RBC (Bld) [#/Vol] 3.42 10*6/uL Low [facility] WBC corrected for nucl RBC Auto (Bld) [#/Vol] 14.8 High [facility] COMPREHENSIVE METABOLIC PANE Jaden 03-13-2024 Albumin [Mass/Vol] 3.0 g/dL Low 3.2-5.[address] [facility] Comment on above: Performed By: #### C SHAWNA BYRD #### [facility] ([id number]) [address], [address] [place] [address] ALP [Catalytic activity/Vol] 80 U/L Normal 39-130 [facility] Comment on above: Performed By: #### C ROCHELLE CBCA #### [facility] ([id number]) [address], [address] [place] [address] ALT [Catalytic activity/Vol] 16 U/L Normal 0-31 [facility] Comment on above: Performed By: #### C ROCHELLE CBCA #### [facility] ([id number]) [address], [address] [place] [address] Anion gap [Moles/Vol] 9 mmol/L Normal 5-15 [facility] Comment on above: Performed By: #### C ROCHELLE CBCA #### [facility] ([id number]) [address], [address] [place] [address] AST [Catalytic activity/Vol] 27 U/L Normal 0-41 [facility] Comment on above: Performed By: #### C ROCHELLE, CBCA #### [facility] ([id number]) [address], [address] [place] [address] Bilirubin [Mass/Vol] 0.3 mg/dL Normal 0.3-1.2 [facility] Comment on above: Performed By: #### C ROCHELLE CBCA #### [facility] ([id number]) [address], [address] [place] [address] Calcium [Mass/Vol] 8.8 mg/dL Normal 8.5-10.[address] [facility] Comment on above: Performed By: #### C ROCHELLE CBCA #### [facility] ([id number]) [address], [address] [place] [address] Chloride [Moles/Vol] 107 mmol/L Normal 98-109 [facility] Comment on above: Performed By: #### C ROCHELLE CBCA #### [facility] ([id number]) [address], [address] [place] [address] CO2 [Moles/Vol] 23 mmol/L Normal 22-32 [facility] Comment on above: Performed By: #### C ROCHELLE CBCA #### [facility] ([id number]) [address], [address] [place] [address] Creatinine [Mass/Vol] 0.68 mg/dL Normal 0.40-1.00 [facility] Comment on above: Result Comment: METH OD TRACEABLE TO IDMS STANDARD Performed By: #### C ROCHELLE CBCA #### [facility] ([id number]) [address], [address] [place] [address] eGFR (CKD-EPI) NON-RACE DEPENDENT >90 Normal >59 [facility] Comment on above: Result Comment: Reported eGFR is based on the CKD-EPI 2020 equation that does not use a race coefficient. Performed By: #### C ADAIR BYRDA #### [facility] ([id number]) [address], [address] [place] [address] Glucose [Mass/Vol] 103 mg/dL High 65-[address] [facility] Comment on above: Performed By: #### C ROCHELLE CBCA #### [facility] ([id number]) [address], [address] [place] [address] Potassium [Moles/Vol] 3.7 mmol/L Normal 3.5-5.0 [facility] Comment on above: Performed By: #### C ROCHELLE CBCA #### [facility] ([id number]) [address], [address] [place] [address] Protein [Mass/Vol] 5.7 g/dL Low 6.0-8.[address] [facility] Comment on above: Performed By: #### C ROCHELLE CBCA #### [facility] ([id number]) [address], [address] [place] [address] Sodium [Moles/Vol] 139 mmol/L Normal 134-[address] [facility] Comment on above: Performed By: #### C ROCHELLE CBCA #### [facility] ([id number]) [address], [address] [place] [address] Urea nitrogen [Mass/Vol] 16 mg/dL Normal 5-23 [facility] Comment on above: Performed By: #### C ROCHELLE CBCA #### [facility] ([id number]) [address], [address] [place] [address] Comprehensive metabolic pane jaden 03-13-2024 Albumin [Mass/Vol] 3 g/dL Low 3.2 - 5.3 g/dL [facility] ALP [Catalytic activity/Vol] 80 U/L 39 - 130 U/L [facility] ALT No additional P-5'-P [Catalytic activity/Vol] 16 U/L 0 - 31 U/L [facility] Anion gap [Moles/Vol] 9 mmol/L 5 - 15 mmol/L [facility] AST [Catalytic activity/Vol] 27 U/L 0 - 41 U/L [facility] Bilirubin [Mass/Vol] 0.3 mg/dL 0.3 - 1 .2 mg/dL [facility] Calcium [Mass/Vol] 8.8 mg/dL 8.5 - 10. 5 mg/dL [facility] Chloride [Moles/Vol] 107 mmol/L 98 - 10 9 mmol/L [facility] CO2 [Moles/Vol] 23 mmol/L 22 - 32 mmol/L [facility] Creatinine [Mass/Vol] 0.68 mg/dL 0.40 - 1.00 mg/dL [facility] Comment on above: METHOD TRACEABLE TO [facility] STANDARD eGFR (CKD-EPI)non-race dependent - PINF [facility] Comment on above: Reported eGFR is based on the CKD-EPI 2020 equation that does not use a race coefficient. Glucose [Mass/Vol] 103 mg/dL High 65 - 99 mg/dL [facility] Interpretation and review of laboratory results Abnormal [facility] Potassium [Moles/Vol] 3.7 mmol/L 3.5 - 5.0 mmol/L [facility] Protein [Mass/Vol] 5.7 g/dL Low 6.0 - 8.0 g/dL [facility] Sodium [Moles/Vol] 139 mmol/L 134 - 146 mmol/L [facility] Urea nitrogen [Mass/Vol] 16 mg/dL 5 - 23 mg/dL [facility] 36on 03-12-2024 36 TTH L&D Called to inform Dr Peraza that pt is being induced. [facility] ABO Rh Repeaton 03-12-2024 ABO A [facility] Rh Nom (Bld) Positive [facility] ABO A [facility] Rh Nom (Bld) Positive [facility] CBC without diffon Erythrocyte distribution wid th (RBC) [Ratio] 13.6 % 11.5 - 15.0 % [facility] Hematocrit (Bld) [Volume fraction] 36.9 % 35 - 47 % [facility] Hemoglobin (Bld) [Mass/Vol] 12.6 g/dL 11.7 - 15.5 g/dL [facility] MCH (RBC) [Entitic mass] 30.2 pg 27 - 34 pg [facility] MCHC (RBC) [Mass/Vol] 34.2 g/dL 32 - 3 6 g/dL [facility] MCV (RBC) [Entitic vol] 88 fL 80 - 100 fL [facility] Platelet mean volume (Bld) [Entitic vol] 9.5 fL 7 - 12 fL [facility] Platelets (Bld) [#/Vol] 167 10*3/uL [facility] RBC (Bld) [#/Vol] 4.17 10*6/uL [facility] WBC corrected for nucl RBC Auto (Bld) [#/Vol] 9.9 [facility] COMPLETE BLOOD COUNTon 03-12 Erythrocyte distribution wid th (RBC) [Ratio] 13.6 % Normal 11.5-15.0 [facility] Comment on above: Performed By: #### C BC #### [facility] ([id number]) [address], [address] [place] [address] Hematocrit (Bld) [Volume fraction] 36.9 % Normal 35-47 [facility] Comment on above: Performed By: #### C BC #### [facility] ([id number]) [address], [address] [place] [address] Hemoglobin (Bld) [Mass/Vol] 12.6 g/dL Normal 11.7-15. 5 [facility] Comment on above: Performed By: #### C BC #### [facility] ([id number]) [address] [facility], [address] [place] [address] MCH (RBC) [Entitic mass] 30.2 pg Normal 27-34 [facility] Comment on above: Performed By: #### C BC #### [facility] ([id number]) [address], [address] [place] [address] MCHC (RBC) [Mass/Vol] 34.2 g/dL Normal 32-[address] [facility] Comment on above: Performed By: #### C BC #### [facility] ([id number]) [address], [address] [place] [address] MCV (RBC) [Entitic vol] 88 fL Normal 80-100 [facility] Comment on above: Performed By: #### C BC #### [facility] ([id number]) [address], [address] [place] [address] Platelet mean volume (Bld) [Entitic vol] 9.5 fL Normal 7-12 [facility] Comment on above: Performed By: #### C BC #### [facility] ([id number]) [address], [address] [place] [address] Platelets (Bld) [#/Vol] 167 10*3/uL Normal 150-450 [facility] Comment on above: Performed By: #### C BC #### [facility] ([id number]) [address], [address] [place] [address] RBC COUNT 4.17 X10E12/L Normal 3.80-5.20 [facility] Comment on above: Performed By: #### C BC #### [facility] ([id number]) [address], [address] [place] [address] WBC (Bld) [#/Vol] 9.9 10*3/uL Normal 4.0-11.[address] [facility] Comment on above: Performed By: #### C BC #### [facility] ([id number]) [address], [address] [place] [address] CREATININEon 03-12-2024 Creatinine [Mass/Vol] 0.64 mg/dL Normal 0.40-1.00 [facility] Comment on above: Result Comment: METH OD TRACEABLE TO IDMS STANDARD Performed By: #### C RT #### [facility] ([id number]) [address], [address] [place] [address] eGFR (CKD-EPI) NON-RACE DEPENDENT >90 Normal >59 [facility] Comment on above: Result Comment: Reported eGFR is based on the CKD-EPI 2020 equation that does not use a race coefficient. Performed By: #### C RT #### [facility] ([id number]) [address], [address] [place] [address] Creatinine includes GFR, ser umon 03-12-2024 Creatinine [Mass/Vol] 0.64 mg/dL 0.40 - 1.00 mg/dL [facility] Comment on above: METHOD TRACEABLE TO IDMS STANDARD eGFR (CKD-EPI)non-race dependent - PINF [facility] Comment on above: Reported eGFR is based on the CKD-EPI 2020 equation that does not use a race coefficient. [facility] Drug Screen, Urineon 025 Amphetamines Screen method >1000 ng/mL Ql (U) Negative Negative^N ative [facility] Comment on above: AMPH/METH screening cut off = 1000 ng/mL Barbiturates Screen Ql (U) Negative N egative^N ative [facility] Comment on above: Barbiturates screeni ng cut off value = 200 ng/mL Benzodiazepines Ql (U) Negative Negat neena^N ative [facility] Comment on above: Benzodiazepines scre ening cut off value = 200 ng/mL Cocaine Ql (U) Negative Negative^N ative [facility] Comment on above: Cocaine screening cu t off value = 300 ng/mL Methadone Screen Ql (U) Negative Nega tive^N egative [facility] Comment on above: Methadone screening cut off value = 300 ng/mL. Methylenedioxymethamphetamin e Screen Ql (U) Negative Negative^N [facility] Comment on above: Ecstasy screening cu t off value = 500 ng/mL This report is intended for use in clinical monitoring or management of patients. Opiates Screen Ql (U) Negative Negati ve^N [facility] Comment on above: Opiates screening cu t off value = 300 ng/mL NOTE: This test is used for the detection of codeine, hydrocodone (>1000 ng/mL), morphine and hydromorphone (>900 ng/mL) in urine. oxyCODONE Ql (U) Negative Negative^N [facility] Comment on above: Oxycodone screening cut off value = 300 ng/mL NOTE: This test is used for the detection of oxycodone and oxymorphone in urine. Phencyclidine Screen method >25 ng/mL Ql (U) Negative Negative^N [facility] Comment on above: Phencyclidine screen ing cut off value = 25 ng/mL Tetrahydrocannabinol Screen method >50 ng/mL Ql (U) Negative Negative^N [facility] Comment on above: Cannabinoids/THC scr eening cut off value = 50 ng/mL [facility] Syphilis Total(Unknown Syphi lis Status)on 03-12-2024 T. pallidum IgG+IgM IA Ql (S) [facility] Comment on above: NON REACTIVE No serologic evidence of infection to Treponema pallidum (syphilis). Repeat testing may be considered in patients with suspected acute or primary syphilis in 2 to 4 weeks. T. pallidum IgG+IgM IA Ql (S )on 03-12-2024 [facility] Syphilis Total <0.2 Normal 0.0-0.8 [facility] Comment on above: Result Comment: NON REACTIVE No serologic evidence of infection to Treponema pallidum (syphilis). Repeat testing may be considered in patients with suspected acute or primary syphilis in 2 to 4 weeks. Performed By: #### 4 7236-5 #### [facility] ([id number]) [address] [place] [address], [address] [place] [address] Type and screen(includes ind irect gardenia)on 03-12-2024 ABO A [facility] Rh Nom (Bld) Positive [facility] DRUG SCREEN, URINEon 025 AMPHETAMINE/METHAMP Negative Normal NEG [facility] Comment on above: Result Comment: AMPH /METH screening cut off = 1000 ng/mL Performed By: #### D LINARES #### [facility] ([id number]) [address], [address] [place] [address] BARBITURATES Negative Normal NEG [facility] Comment on above: Result Comment: Haylie iturates screening cut off value = 200 ng/mL Performed By: #### D LINARES #### [facility] ([id number]) [address], [address] [place] [address] BENZODIAZEPINES Negative Normal NEG [facility] Comment on above: Result Comment: Armando odiazepines screening cut off value = 200 ng/mL Performed By: #### D LINARES #### [facility] ([id number]) [address], [address] [place] [address] CANNABINOIDS Negative Normal NEG [facility] Comment on above: Result Comment: Yg abinoids/THC screening cut off value = 50 ng/mL Performed By: #### D LINARES #### [facility] ([id number]) [address], [address] [place] [address] COCAINE METABOLITE Negative Normal NEG [facility] Comment on above: Result Comment: Coca ine screening cut off value = 300 ng/mL Performed By: #### D LINARES #### [facility] ([id number]) [address], [address] [place] [address] ECSTASY Negative Normal NEG [facility] Comment on above: Result Comment: Ecst asy screening cut off value = 500 ng/mL This report is intended for use in clinical monitoring or management of patients. Performed By: #### D LINARES #### [facility] ([id number]) [address] [facility], [address] [place] [address] METHADONE Negative Normal NEG [facility] Comment on above: Result Comment: Meth adone screening cut off value = 300 ng/mL. Performed By: #### D LINARES #### [facility] ([id number]) [address] [place] [address], [address] [place] [address] OPIATES Negative Normal NEG [facility] Comment on above: Result Comment: Opia anh screening cut off value = 300 ng/mL NOTE: This test is used for the detection of codeine, hydrocodone (>1000 ng/mL), morphine and hydromorphone (>900 ng/mL) in urine. Performed By: #### D LINARES #### [facility] ([id number]) [address] [place] [address], [address] [place] [address] OXYCODONE Negative Normal NEG [facility] Comment on above: Result Comment: Oxyc odone screening cut off value = 300 ng/mL NOTE: This test is used for the detection of oxycodone and oxymorphone in urine. Performed By: #### D LINARES #### [facility] ([id number]) [address] [place] [address], [address] [place] [address] PHENCYCLIDINE Negative [facility] Comment on above: Result Comment: Phen cyclidine screening cut off value = 25 ng/mL Performed By: #### D LINARES #### [facility] ([id number]) [address] [place] [address], [address] [place] [address] 36on 02-14-2024 36 Sent via [employer] fax [facility] 36 I called her yesterday morning and discussed this with her already so this must be an older message. [facility] Documentationon 02-14-2024 Documentation [id number] Segundo CardenasKenna 1995 F Date Provider Department Center 02/14/2024 [facility] PED Simon Rao No family history on file [facility] 36on 02-13-2024 36 Patient stated that she completed an ECHO recently and is now 36 wks . Her PAPER STACKER wants a note on the results and how to proceed with delivery. PAPER STACKER: [place] [facility] [address] [place] [address] PH: [phone] F: [phone] Normal [facility] STREP B SCREEN CULTUREon S. agalactiae Org specific c x Ql (Vag+Rectum) SPECIMEN NOTES ALLERGY TO PENICILLIN CULTURE RESULTS NEGATIVE FOR GROUP B STREPTOCOCCUS BY NUCLEIC ACID AMPLIFICATION Normal [facility] Comment on above: Performed By: #### 7 2607-5 #### [facility] ([id number]) [address], [address] [place] [address] Urinalysis macro (dipstick) panel (U)on 01-26-2024 Bilirubin, UA Negative Negative - 4(70) +++ mg/dL [facility] Blood, UA Negative Negative - 50 Sina/mcL [facility] Clarity, UA Clear [facility] Color, UA Yellow [facility] Glucose, UA Negative Negative - 1999(110) ++++ mg/dL [facility] Interpretation and review of laboratory results Normal [facility] Ketones, UA Negative Negative - 160(16) ++++ mg/dL [facility] Leukocytes, UA Negative Negative - 500+++ Amos/mcL [facility] Nitrite, UA Negative Negative - Positive [facility] pH, UA 5.5 5 - 9 [facility] Protein, UA Negative Negative - 1999(20) ++++ mg/dL [facility] Spec Grav, UA 1.02 1 - 1.03 [facility] Urobilinogen, UA 1.0 0.2 - 12 mg/dL [facility] Urinalysis macro (dipstick) panel (U)on 01-14-2024 Bilirubin, UA Negative Negative - 4(70) +++ mg/dL [facility] Blood, UA Negative Negative - 50 Sina/mcL [facility] Clarity, UA Clear [facility] Color, UA R[facility] Glucose, UA Negative Negative - 1999(110) ++++ mg/dL [facility] Interpretation and review of laboratory results Abnormal [facility] Ketones, UA Positive Negative - 160(16) ++++ mg/dL [facility] Comment on above: 15 Leukocytes, UA Trace Negative - 500+++ Amos/mcL [facility] Nitrite, UA Negative Negative - Positive [facility] pH, UA 7 5 - 9 [facility] Protein, UA Positive Negative - 2000(20) ++++ mg/dL [facility] Comment on above: 30 Spec Grav, UA 1.02 1 - 1.03 [facility] Urobilinogen, UA 0.2 0.2 - 12 mg/dL [facility] 37on 01-13-2024 37 Echo results: Bicuspid aortic [...] not dizzy. ECHO at 36 weeks Normal [facility] Office Visiton 01-13-2024 Follow-up visit [id number] Lisa Cardenas 1995 F Date Provider Department Center 01/13/2024 CHE[facility]SON RPW PED [employer] No family history on file Level of Service:84147 [place] OFFICE/OUTPATIEN T ESTABLISHED MOD MDM 30 MIN Reason for Visit and Comments: Aortic Dilatation [Other] - 32 wks Normal [facility] Orders Onlyon 01-13-2024 Orders Only [id number] Lisa Cardenas 1995 F Date Provider Department Center 01/13/2024 RAMIRO VOGEL PED [employer] No family history on file Normal [facility] Urinalysis macro (dipstick) panel (U)on 12-30-2023 Bilirubin, UA Negative Negative - 4(70) +++ mg/dL [facility] Blood, UA Negative Negative - 50 Sina/mcL [facility] Clarity, UA Clear [facility] Color, UA Yellow [facility] Glucose, UA Negative Negative - 1999(110) ++++ mg/dL [facility] Interpretation and review of laboratory results Normal [facility] Ketones, UA Negative Negative - 160(16) ++++ mg/dL [facility] Leukocytes, UA Negative Negative - 500+++ Amos/mcL [facility] Nitrite, UA Negative Negative - Positive [facility] pH, UA 6.5 5 - 9 [facility] [place] Protein, UA Negative Negative - 1999(20) ++++ mg/dL [facility] Spec Grav, UA 1.015 1 - 1.03 [facility] Urobilinogen, UA 0.2 0.2 - 12 mg/dL [facility] TBH UA (CLEAN/CATCH) RAIL WALKER/GIUSEPPE RO IF IND.on 12-27-2023 BILIRUBIN URINE Negative NEGATIVE [facility] BLOOD URINE Negative NEGATIVE [facility] Clarity (U) CLEAR CLEAR [facility] Color (U) LT. YELLOW YELLOW [facility] GLUCOSE URINE UA Negative NEGATIVE mg/dL [facility] Interpretation and review of laboratory results Abnormal [facility] Ketones Ql (U) TRACE Abnormal NEGATIVE mg/dL [facility] Leukocyte esterase Test stri p Ql (U) Negative NEGATIVE [facility] NITRITE URINE Negative NEGATIVE [facility] pH (U) 7.0 [pH] 5.0 - 9.0 [facility] PROTEIN URINE Negative NEG/TRACE mg/dL [facility] SPECIFIC GRAVITY URINE <=1.005 Abnormal 1.005 - 1.025 [facility] URINE MICROSCOPIC INDICATED NO [facility] UROBILINOGEN URINE 0.2 EU/dL 0.2 - 1.0 EU/dL [facility] Urinalysis macro (dipstick) panel (U)on 12-17-2023 Bilirubin, UA Negative Negative - 4(70) +++ mg/dL [facility] Blood, UA Negative Negative - 50 Sina/mcL [facility] Clarity, UA Clear [facility] Color, UA Yellow [facility] Glucose, UA Negative Negative - 1999(110) ++++ mg/dL [facility] Interpretation and review of laboratory results Abnormal [facility] Ketones, UA Negative Negative - 160(16) ++++ mg/dL [facility] Leukocytes, UA Trace Negative - 500+++ Amos/mcL [facility] Nitrite, UA Negative Negative - Positive [facility] pH, UA 7.5 5 - 9 [facility] Protein, UA Negative Negative - 2000(20) ++++ mg/dL [facility] Spec Grav, UA 1.020 1 - 1.03 [facility] Urobilinogen, UA 0.2 0.2 - 12 mg/dL [facility] CBC with Diffon 12-09-2023 Abs. Basophil 0.09 k/uL Normal 0.00-0.20 [facility] Comment on above: Performed By: #### C P, CDP #### [facility] [address] [place] [address] [place] [address] Filament Shaper: Eulogio Mata MD Abs.Imm.Granulocyte 0.17 k/uL Normal 0.00-0.30 [facility] Comment on above: Performed By: #### C P, CDP #### [facility] [address] [place] [address] Dr. [place], [id number] Filament Shaper: Eulogio Mata MD Abs.Neutrophil (Seg) 5.63 k/uL Normal 1.50-8.10 [facility] Comment on above: Performed By: #### C P, CDP #### [address] [place] [id number] Filament Shaper: Eulogio Mata MD Basophils/100 WBC (Bld) 1 % Normal 0-2 M [facility] Comment on above: Performed By: #### C P, CDP #### [facility] [address] [place] [address] Dr. [place], [place] [id number] Filament Shaper: Eulogio Mata MD Eosinophils (Bld) [#/Vol] 0.13 10*3/uL Normal 0.00-0.4 4 [facility] Comment on above: Performed By: #### C P, CDP #### [address] [place] [id number] Filament Shaper: Eulogio Mata MD Eosinophils/100 WBC (Bld) 2 % Normal 1-4 [facility] Comment on above: Performed By: #### C P, CDP #### [facility] [address] [place], [place] [id number] Filament Shaper: Eulogio Mata MD Erythrocyte distribution wid th (RBC) [Ratio] 12.7 % Normal 11.8-14.4 [facility] Comment on above: Performed By: #### C P, CDP #### [address] [place], [place] [address] Filament Shaper: Eulogio Mata MD Hematocrit (Bld) [Volume fraction] 36.4 % Normal 36.3-47.1 [facility] Comment on above: Performed By: #### C P, CDP #### [address] [place], [place] [address] Filament Shaper: Eulogio Mata MD Hemoglobin (Bld) [Mass/Vol] 12.6 g/dL Normal 11.9-15. 1 [facility] Comment on above: Performed By: #### C P, CDP #### [address] [place], [place] [address] Filament Shaper: Eulogio Mata MD Immature granulocytes/100 WB C (Bld) 2 % High 0 [facility] Comment on above: Performed By: #### C P, CDP #### [facility] [address] [place] [address] Dr. [place], [place] [address] Filament Shaper: Eulogio Mata MD Lymphocytes (Bld) [#/Vol] 1.80 10*3/uL Normal 1.10-3.7 0 [facility] Comment on above: Performed By: #### C P, CDP #### [address] [place], [place] [id number] Filament Shaper: Eulogio Mata MD Lymphocytes/100 WBC (Bld) 21 % Low 24-43 [facility] Comment on above: Performed By: #### C P, CDP #### [facility] [address] [place], [place] [id number] Filament Shaper: Eulogio Mata MD MCH (RBC) [Entitic mass] 30.4 pg Normal 25.2-33.5 [facility] Comment on above: Performed By: #### C P, CDP #### [address] [place], [place] [address] Filament Shaper: Eulogio Mata MD MCHC (RBC) [Mass/Vol] 34.6 g/dL Normal 28.4-34.8 [facility] Comment on above: Performed By: #### C P, CDP #### [address] [place], [id number] Filament Shaper: Eulogio Mata MD MCV (RBC) [Entitic vol] 87.9 fL Normal 82.6-102.9 [facility] Comment on above: Performed By: #### C P, CDP #### [address] [place], [id number] Filament Shaper: Eulogio Mata MD Monocytes (Bld) [#/Vol] 0.61 10*3/uL Normal 0.10-1.20 [facility] Comment on above: Performed By: #### C P, CDP #### [address] [place], [id number] Filament Shaper: Eulogio Mata MD Monocytes/100 WBC (Bld) 7 % Normal 3-12 M [facility] Comment on above: Performed By: #### C P, CDP #### [address] [place], [id number] Filament Shaper: Eulogio Mata MD Neutrophil (Seg) 67 % High 36-65 [facility] Comment on above: Performed By: #### C P, CDP #### [facility] [address] [place], [place] [id number] Filament Shaper: Eulogio Mata MD NRBC Automated 0.0 per 100 WBC Normal 0.0 [facility] Comment on above: Performed By: #### C P, CDP #### [facility] [address] [place], [place] [id number] Filament Shaper: Eulogio Mata MD Platelet mean volume (Bld) [Entitic vol] 10.7 fL Normal 8.1-13.5 [facility] Comment on above: Performed By: #### C P, CDP #### [address] [place], [place] [id number] Filament Shaper: Eulogio Mata MD Platelets (Bld) [#/Vol] 162 10*3/uL Normal 138-453 [facility] Comment on above: Performed By: #### C P, CDP #### [address] [place], [place] [id number] Filament Shaper: Eulogio Mata MD RBC (Bld) [#/Vol] 4.14 10*6/uL Normal 3.95-5.11 [facility] Comment on above: Performed By: #### C P, CDP #### [address] [place], [place] [id number] Filament Shaper: Eulogio Mata MD WBC (Bld) [#/Vol] 8.4 10*3/uL Normal 3.5-11.3 [facility] Comment on above: Performed By: #### C P, CDP #### [address] [place] [address] Filament Shaper: Eulogio Mata MD Comp Metabolic Profon 2023 Albumin [Mass/Vol] 3.7 g/dL Normal 3.5-5.2 [facility] Comment on above: Performed By: #### C P, CDP #### [address] [place], [place] [id number] Filament Shaper: Eulogio Mata MD Albumin/Glob Ratio 1.4 Normal 1.0-2.5 [facility] Comment on above: Performed By: #### C P, CDP #### [facility] [address] [place] [address] Filament Shaper: Eulogio Mata MD Alkaline Phos 47 U/L Normal 35-104 [facility] Comment on above: Performed By: #### C P, CDP #### [facility] [address] [place], [place] [id number] Filament Shaper: Eulogio Mata MD ALT [Catalytic activity/Vol] 13 U/L Normal 10-35 [facility] Comment on above: Performed By: #### C P, CDP #### [facility] [address] [place], [place] [phone] Filament Shaper: Eulogio Mata MD Anion gap [Moles/Vol] 9 mmol/L Normal 9-16 [facility] Comment on above: Performed By: #### C P, CDP #### [facility] [address] [place], [place] [id number] Filament Shaper: Eulogio Mata MD AST [Catalytic activity/Vol] 16 U/L Normal 10-35 [facility] Comment on above: Performed By: #### C P, CDP #### [facility] [address] [place], [place] [phone] Filament Shaper: Eulogio Mata MD Bilirubin [Mass/Vol] 0.3 mg/dL Normal 0.00-1.20 [facility] Comment on above: Performed By: #### C P, CDP #### [facility] [address] [place] [address] Filament Shaper: Eulogio Mata MD BUN/CRE Ratio 17 Normal 9-20 [facility] Comment on above: Performed By: #### C P, CDP #### [facility] [address] [place] [address] Filament Shaper: Eulogio Mata MD Calcium [Mass/Vol] 8.7 mg/dL Normal 8.6-10.4 [facility] Comment on above: Performed By: #### C P, CDP #### [facility] [address] [place], [place] [phone] Filament Shaper: Eulogio Mata MD Chloride [Moles/Vol] 104 mmol/L Normal 98-107 [facility] Comment on above: Performed By: #### C P, CDP #### [facility] [address] [place], [place] [phone] Filament Shaper: Eulogio Mata MD CO2 [Moles/Vol] 21 mmol/L Normal 20-31 [facility] Comment on above: Performed By: #### C P, CDP #### [facility] [address] [place], [place] [id number] Filament Shaper: Eulogio Mata MD Creatinine [Mass/Vol] 0.6 mg/dL Normal 0.50-0.90 [facility] Comment on above: Performed By: #### C P, CDP #### [facility] [address] [place], [place] [phone] Filament Shaper: Eulogio Mata MD GFR/1.73 sq M.predicted john g non-blacks MDRD (S/P/Bld) [Vol rate/Area] mL/min/{1.73_m2} Normal >60 [facility] Comment on above: Result Comment: [...] Performed By: #### C P, CDP #### [facility] [address] [place], [place] [phone] Filament Shaper: Eulogio Mata MD Glucose [Mass/Vol] 75 mg/dL Normal 74-99 [facility] Comment on above: Performed By: #### C P, CDP #### [facility] [address] [place], [place] 1923783 Filament Shaper: Eulogio Mata MD Potassium [Moles/Vol] 4.0 mmol/L Normal 3.7-5.3 [facility] Comment on above: Performed By: #### C P, CDP #### [facility] [address] [place], [place] [phone] Filament Shaper: Eulogio Mata MD Protein [Mass/Vol] 6.2 g/dL Low 6.6-8.7 [facility] Comment on above: Performed By: #### C P, CDP #### [facility] [address] [place] [address] [place] [address] Filament Shaper: Eulogio Mata MD Sodium [Moles/Vol] 134 mmol/L Low 136-145 [facility] Comment on above: Performed By: #### C P, CDP #### [facility] [address] [place] [address] [place] [address] Filament Shaper: Eulogio Mata MD Urea nitrogen [Mass/Vol] 10 mg/dL Normal 6-20 [facility] Comment on above: Performed By: #### C P, CDP #### [facility] [address] [place] [address] Filament Shaper: Eulogio Mata MD Lipaseon 12-09-2023 Lipase [Catalytic activity/Vol] 41 U/L Normal 13-60 [facility] Comment on above: Performed By: #### L IP #### [facility] [address] [place], [place] [id number] Filament Shaper: Eulogio Mata MD UA w/Reflex Cultureon 2023 Bilirubin, SemiQt,Ur Negative Normal NEG [facility] Comment on above: Performed By: #### U AX, UMICAO #### [facility] [address] [place] [address] Filament Shaper: Eulogio Mata MD Blood, Urine Negative Normal NEG [facility] Comment on above: Performed By: #### U AX, UMICAO #### [facility] [address] [place] [address] Filament Shaper: Eulogio Mata MD Clarity (U) Clear Normal CLEAR [facility] Comment on above: Performed By: #### U AX, UMICAO #### [facility] [address] [place], [place] [phone] Filament Shaper: Eulogio Mata MD Color (U) Yellow Normal YEL [facility] Comment on above: Performed By: #### U AX, UMICAO #### [facility] [address] [place] [address] Filament Shaper: Eulogio Mata MD Glucose Ql (U) Negative Normal NEG [facility] Comment on above: Performed By: #### U AX, UMICAO #### [facility] [address] [place] [address] [place] [address] Filament Shaper: Eulogio Mata MD Ketones Ql (U) Negative Normal NEG [facility] Comment on above: Performed By: #### U AX, UMICAO #### [facility] [address] [place] [address] Filament Shaper: Eulogio Mata MD Leukocyte esterase Test stri p Ql (U) Negative Normal NEG [facility] Comment on above: Performed By: #### U AX, UMICAO #### [facility] [address] [place], [place] [phone] Filament Shaper: Eulogio Mata MD Nitrite,Ur Negative Normal NEG [facility] Comment on above: Performed By: #### U AX, UMICAO #### [facility] [address] [place], [place] [phone] Filament Shaper: Eulogio Mata MD PH,Ur 7.0 Normal 5.0-9.0 [facility] Comment on above: Performed By: #### U AX, UMICAO #### [facility] [address] [place] [address] Filament Shaper: Eulogio Mata MD Protein Ql (U) Negative Normal NEG [facility] Comment on above: Performed By: #### U AX, UMICAO #### [address] [place] [address] Filament Shaper: Eulogio Mata MD Spec. [place],Ur 1.015 Normal 1.010-1.02 0 [facility] Comment on above: Performed By: #### U AX, UMICAO #### [facility] [address] [place] [address] [place] [address] Filament Shaper: Eulogio Mata MD Urobilinogen,Ur Normal Normal 0.0-1.0 [facility] Comment on above: Performed By: #### U AX, UMICAO #### [address] [place] [address] Filament Shaper: Eulogio Mata MD US GALLBLADDER RUQon 024 US [...] Sabi Leung MD 12/09/23 Final result Normal [facility] Urinalysis,Microon 4 Epithelial cells LM Ql (Urin e sed) 0 TO 2 Normal 0-25 [facility] Comment on above: Performed By: #### U AX, UMICAO #### [facility] [address] [place] [address] Filament Shaper: Eulogio Mata MD Urine RBC's None Normal 0-2 [facility] Comment on above: Performed By: #### U AX, UMICAO #### [facility] [address] [place] [address] Filament Shaper: Eulogio Mata MD Urine WBC's 0 TO 2 Normal 0-5 [facility] Comment on above: Performed By: #### U AX, UMICAO #### [facility] [address] [place] [address] Filament Shaper: Eulogio Mata MD 36on 12-03-2023 36 Echo order faxed over Normal [facility] 36on 12-02-2023 36 Called and left detailed message for patient Normal [facility] 36 This will be fine Normal [facility] Urinalysis macro (dipstick) panel (U)on 11-26-2023 Bilirubin, UA Negative Negative - 4(70) +++ mg/dL [facility] Blood, UA Negative Negative - 50 Sina/mcL [facility] Clarity, UA Clear [facility] Color, UA Yellow [facility] Glucose, UA Negative Negative - 2000(110) ++++ mg/dL [facility] Interpretation and review of laboratory results Abnormal [facility] Ketones, UA Negative Negative - 160(16) ++++ mg/dL [facility] Leukocytes, UA Trace Negative - 500+++ Amos/mcL [facility] Nitrite, UA Negative Negative - Positive [facility] pH, UA 7.0 5 - 9 [facility] Protein, UA Negative Negative - 2000(20) ++++ mg/dL [facility] Spec Grav, UA 1.025 1 - 1.03 [facility] Urobilinogen, UA 0.2 0.2 - 12 mg/dL [facility] 36on 11-24-2023 36 Patient called stating that they [place] does not have any appointment for an echo until 32 week. She wants to know if it is okay for her to get it at 32 weeks or what else do you suggest. Please advise [facility] 3611-23-2023 36 I called the [facility] and I left a message on her voicemail that I would put an order in but she needs to call the [facility] scheduling line and get it scheduled in our office will fax the order to them. I asked her to schedule it for 30 weeks gestation. Please make sure that the order is faxed to [facility] scheduling. [facility] Orders Onlyon 11-23-2023 Orders Only [id number] Lisa Cardenas 1995 F Date Provider Department Center 11/23/2023 CHEPE GOODSON No family history on file [facility] 36on 11-21-2023 36 Pt called in [...] next apt with Dr. Peraza on 01/12. 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 BLOOD URINE Negative NEGATIVE [facility] Clarity (U) CLEAR CLEAR [facility] Color (U) LT. YELLOW YELLOW [facility] GLUCOSE URINE UA Negative NEGATIVE mg/dL [facility] Interpretation and review of laboratory results Abnormal [facility] Ketones Ql (U) 15 mg/dL Abnormal NEGATIVE [facility] Leukocyte esterase Test stri p Ql (U) Negative NEGATIVE [facility] NITRITE URINE Negative NEGATIVE [facility] pH (U) 6.0 [pH] 5.0 - 9.0 [facility] PROTEIN URINE Negative NEG/TRACE mg/dL [facility] SPECIFIC GRAVITY URINE 1.010 1.005 - 1.025 [facility] URINE MICROSCOPIC INDICATED NO [facility] UROBILINOGEN URINE 0.2 EU/dL 0.2 - 1.0 EU/dL [facility] Urinalysis macro (dipstick) panel (U)on 10-30-2023 Bilirubin, UA Negative Negative - 4(70) +++ mg/dL [facility] Blood, UA Negative Negative - 50 Sina/mcL [facility] Clarity, UA Clear [facility] Color, UA Yellow [facility] Glucose, UA Negative Negative - 1999(110) ++++ mg/dL [facility] Interpretation and review of laboratory results Normal [facility] Ketones, UA Negative Negative - 160(16) ++++ mg/dL [facility] Leukocytes, UA Negative Negative - 500+++ Amos/mcL [facility] Nitrite, UA Negative Negative - Positive [facility] pH, UA 7.0 5 - 9 [facility] Protein, UA Negative Negative - 1999(20) ++++ mg/dL [facility] Spec Grav, UA 1.020 1 - 1.03 [facility] Urobilinogen, UA 0.2 0.2 - 12 mg/dL [facility] Office Visiton 10-07-2023 Follow-up visit [id number] Lisa Cardenas 1995 F Date Provider Department Center 10/07/2023 CHEPE GOODSON No family history on file Level of Service:36799 [place] OFFICE/OUTPATIEN T ESTABLISHED MOD MDM 30 MIN Reason for Visit and Comments: Heart Problem [54] - Transfer from [facility] - 18 wks [facility] CHG US SOFT TISSUE HEAD & NE CK REAL TIME IMGE DOCMon 09-23-2023 Radiology Study observation (narrative) [facility] CHG US SOFT TISSUE HEAD & NE CK REAL TIME IMGE DOCMon 09-22-2023 Andres Torres MD 09/23/2023 6:28 PM Ms. Cardenas was seen and examined with Dr. Hall, I independently verified the findings on US and agree with the documented report - thyroid ultrasound report appears in the notes tab. [facility] US Unspecified body regionOr dered By: Unassigned Pacs on 09-22-2023 [facility] Work Phone: US Unspecified body regionon 09-22-2023 Radiology Study observation (narrative) [facility] HIV 1&2 AB/AG Screen (P24 AG )on 08-21-2023 HIV 1&2 AB/AG Non-Reactive [facility] Hepatitis B surface antigeno n 08-21-2023 Hepatitis B Surface Antigen Negative [facility] Hepatitis C(HCV) Ab w/ Refle x to PCRon 08-21-2023 HCV Ab Ql (S) Non-Reactive [facility] No Panel Informationon 08-20 [facility] Syphilis Total(Unknown Syphi lis Status)on 08-21-2023 Syphilis Non-Reactive [facility] Type and screenon 08-21-2023 Abo/Rh(D) Positive [facility] Ultrasound - Officeon 2023 [facility] Radiology Study observation (narrative) [facility] 36on 07-04-2023 36 Created in error Normal [facility] 36 Scheduled an appointment October 06 at 8:30am. [facility] 36 If this patient schedules a [...] her and left her message as well. Normal [facility] 36on 07-03-2023 36 Patient is newly (4wks) and is currently scheduled in August for her yearly visit.. She is asking if she needs to reschedule to do the 20-24 wk gestational testing. PH: [phone] Normal [facility] Telephoneon 07-03-2023 Telephone [id number] Lisa Peña 1995 F Date Provider Department Center 07/03/2023 [id number], [facility] P[facility] [employer] No family history on file [facility] VZ Immunityon 06-23-2023 VZ Immunity 3.84 Normal >1.09 [facility] Comment on above: Result Comment: Interpretation: IMMUNE Reference Range: <0.91 Not Immune 0.91-1.09 Equivocal >1.09 Immune Performed By: #### V ZI #### [facility] [address] [place], [place] [id number] Filament Shaper: Bear Mejias MD US THYROIDon 06-03-2023 US [...] Echogenicity: Hyperechoic or isoechoic (1 point) Shape: Ybvjz-etue-xioa (0 points) Margin: Smooth (0 points) Echogenic [...] using ACR TI-RADS. (JACR July 2016) Normal [facility] FREE T4on 05-23-2023 Free T4 [Mass/Vol] 1.0 ng/dL Normal 0.9-1.8 [facility] Comment on above: Order Comment: Locat ion: Performed By: #### L [id number], [id number] #### ANIL PRESSLEY ([id number]) [facility] ([facility]) [address] [facility], [address] [place] [id number] TSHon 05-23-2023 TSH 2.599 MIU/mL Normal 0.550-4.78 0 [facility] Comment on above: Order Comment: Locat ion: Performed By: #### L [id number], [id number] #### ANIL PRESSLEY ([id number]) [facility]) [address] [facility], [address] [place] [id number] RF videography Hypopharynx a nd Esophagus Views W liquid and paste contrast PO during swallowingon 01-09-2023 IMPRESSION: 1. No laryngeal vestibule penetration or aspiration with any consistency. 2. Please see the speech language pathologist report for further details and dietary recommendations. OLOGY EXAM: XR FLUORO MODIFIED BARIUM SWALLOW-ENT ONLY, 01/09/2023 09:25 AM COMPARISON: No prior studies available for comparison. CLINICAL INDICATIONS: dysphagia R59.1:Lymphadeno marimar TECHNIQUE: Various consistencies of barium including thin [...] studies available for comparison. CLINICAL INDICATIONS: dysphagia R59.1:Lymphadeno marimar TECHNIQUE: Various consistencies of barium including thin [...] report for further details and dietary recommendations. [facility]narrative[facility] Hypopharynx a nd Esophagus Views W liquid and paste contrast PO during swallowingOrdered By: Gisele Hardy on 01-09-2023 [facility] Work Phone: XR FLUORO MODIFIED BARIUM SW ALLOW-ENT ONLYon 01-09-2023 XR FLUORO MODIFIED BARIUM SWALLOW-ENT ONLY EXAM: XR FLUORO MODIFIED BARIUM SWALLOW-ENT ONLY, 01/09/2023 09:25 AM COMPARISON: No prior studies available for comparison. CLINICAL INDICATIONS: dysphagia R59.1:Lymphadeno marimar TECHNIQUE: Various consistencies of barium including thin [...] for further details and dietary recommendations. Normal [facility] CT NECK WITH CONTRASTon 12-08 CT NECK WITH CONTRAST EXAM: CT NECK [...] error, please notify the sender immediately at [phone] and permanently delete the original report and destroy any copies or printouts. Normal [facility] Finisher Denture Cytology Reporton 2022 Finisher Denture Cytology Report Clinical Information Specimen Collection Date: 05/21/2022 LMP: 04/27/2022 Type of specimen: Cervical/endocer vical HPV testing ordered only if ASCUS Pap. Purpose of smear: Regular periodic exam/screening Pap GY Specimen A Liquid Prep Pap Smear, Reflex if ASCUS Adequacy Alpha Response SAT ANATOMICPATHOLOG Y Endocervical Alpha Response EC/TZONE + ANATOMICPATHOLOG Y Statement of Adequacy Satisfactory for Evaluation. Transformation Zone Present. Diagnosis Alpha Response GY NILM ANATOMICPATHOLOG Y Diagnosis NEGATIVE FOR INTRAEPITHELIAL LESION OR MALIGNANCY. [...] smears in the future. 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 Patient reports some pain [...] and the last time she saw her terminal carman thought there might have been some dilation [...] Shortness of Breath: No Gastrointestinal Bloating: No Reflux/heartburn : No Abdominal Pain: No Change in bowel habits: No Urinary Urinary Incontinence: No Urinary frequency: No Nocturia: No Urgency: No Painful urination: No Musculoskeletal Back pain: No Muscle aches: No Joint pain: No Integumentary Lesions: No Moles: No Acne: No Hair changes: No Psycho-Social Sleep Problems: No Anxiety: No Suicidal Ideation: No Homicidal Ideation: No Depression: No Hematologic/Lymp hatic Lymphadenopathy: No Thromboembolism: No Bruising: No Bleeding tendencies: No Endocrine Abnormal weight gain: No Abnormal weight loss: No Fatigue: No Additional Details Pain Present Physical Exam Vitals & Measurements Systolic Blood Pressure : 102 mmHg Diastolic Blood Pressure : 76 mmHg BP Position/Locatio n : Sitting, Left arm Weight Measured : [...] scleral icterus,]. Neck: [Supple, non-tender, , no lymphadenopathy] . Lungs: [Clear to auscultation non-labored respiration]. Heart: [...] will send patient for preconceptual counseling with [facility] because of her cardiac abnormality Follow-up 1 year and as needed Problem List/Past Medical History Ongoing Asthma Bicuspid aortic valve Encounter for routine gynecological examination Encounter for routine gynecological examination with Papanicolaou smear of cervix Follow up Oral contraceptive use Pelvic pain Historical Chickenpox Procedure/Surgic al History mole excisions Upper endoscopy wisdom teeth [...] intractable, w/o (more content not included)... Normal [facility] Culture, Urineon 08-04-2020 RPT Microbiology results Abnormal [facility] Comment on above: Order Comment: Items in this order include: Culture, Urine Testing Performed By: [facility] [address] [place] [address]. [place] [address] Dr. Anil Pressley, Filament Shaper Result Comment: Darwin ny Count: 10,000-25,000 CFU/ML Final Result: Escherichia [...] R Performed By: #### C 734 #### [facility] [address] [place] [address] [address] [place] [address] Culture, Urineon 03-14-2020 RPT Microbiology results Abnormal [facility] Comment on above: Order Comment: Items in this order include: Culture, Urine Testing Performed By: [facility] [address] [place] [address]. [place] [address] Dr. Shaunna Cummins, Filament Shaper Result Comment: [place] ny Count: >100,000 CFU/ML Final Result: Escherichia [...] R Performed By: #### C 734 #### [facility] [address] [place] [address] Culture, Urineon 12-14-2019 RPT Microbiology results Abnormal [facility] Comment on above: Order Comment: Items in this order include: Culture, Urine Testing Performed By: [facility] [address] [place] [address]. [place] [address] Dr. Shaunna Cummins, Filament Shaper Result Comment: [place] ny Count: 50,000-75,000 CFU/ML Final Result: Escherichia [...] R Performed By: #### C 734 #### [facility] [address] [place] [address] Vital Signs Date Time Vital Sign Value Performing Clinician Facility 04-21-2024 11:40-0500 Body mass index (BMI) [Ratio] 26.28 kg/m2 Ella SQUIRES Work Phone: [facility] 04-21-2024 11:40-0500 Body weight 69.45 kg Ella SQUIRES Work Phone: [facility] 04-21-2024 11:40-0500 Diastolic blood pressure 70 mm[Hg] Ella SQUIRES Work Phone: [facility] 04-21-2024 11:40-0500 Systolic blood pressure 104 mm[Hg] Ella SQUIRES Work Phone: [facility] 03-14-2024 14:10-0500 Body temperature 97.9 [degF] Eulogio Garcia MD Work Phone: [facility] 03-14-2024 14:10-0500 Diastolic blood pressure 78 mm[Hg] Eulogio Garcia MD Work Phone: [facility] 03-14-2024 14:10-0500 Heart rate 91 /min Eulogio Garcia MD Work Phone: [facility] 03-14-2024 14:10-0500 Respiratory rate 16 /min Eulogio Garcia MD Work Phone: [facility] 03-14-2024 14:10-0500 Systolic blood pressure 120 mm[Hg] Eulogio Garcia MD Work Phone: [facility] 03-12-2024 23:30-0500 SaO2% (BldA) [Mass fraction] 98 % Eulogio Garcia MD Work Phone: [facility] 03-11-2024 13:32-0500 Body mass index (BMI) [Ratio] 29.71 kg/m2 Kortney Sparrow DO Work Phone: [facility] 03-11-2024 13:32-0500 Body weight 78.52 kg Kortney Sparrow DO Work Phone: [facility] 03-11-2024 13:32-0500 Diastolic blood pressure 76 mm[Hg] Kortney Lafyatis DO Work Phone: [facility] 03-11-2024 13:32-0500 Systolic blood pressure 112 mm[Hg] Kortney Lafyatis DO Work Phone: [facility] 03-04-2024 14:13-0500 Body mass index (BMI) [Ratio] 29.66 kg/m2 Kortney Lafyatis DO Work Phone: [facility] 03-04-2024 14:13-0500 Body weight 78.38 kg Kortney Josefayatis DO Work Phone: [facility] 03-04-2024 14:13-0500 Diastolic blood pressure 82 mm[Hg] Kortney Lafyatis DO Work Phone: [facility] 03-04-2024 14:13-0500 Systolic blood pressure 110 mm[Hg] Kortney Lafyatis DO Work Phone: [facility] 02-26-2024 15:04-0500 Body mass index (BMI) [Ratio] 29.56 kg/m2 Chs Risk [facility] 02-26-2024 15:04-0500 Body weight 78.11 kg Chs Risk [facility] 02-26-2024 15:04-0500 Diastolic blood pressure 72 mm[Hg] Chs Risk [facility] 02-26-2024 15:04-0500 Systolic blood pressure 106 mm[Hg] Chs Risk [facility] 02-18-2024 14:49-0500 Body mass index (BMI) [Ratio] 29.25 kg/m2 Chs Risk [facility] 02-18-2024 14:49-0500 Body weight 77.29 kg Chs Risk [facility] 02-18-2024 14:49-0500 Diastolic blood pressure 80 mm[Hg] Chs Risk [facility] 02-18-2024 14:49-0500 Systolic blood pressure 132 mm[Hg] Chs Risk [facility] 01-26-2024 13:56-0500 Body mass index (BMI) [Ratio] 28.63 kg/m2 Sammy Stu DO Work Phone: [facility] 01-26-2024 13:56-0500 Body weight 75.66 kg Sammy Stu DO Work Phone: [facility] 01-26-2024 13:56-0500 Diastolic blood pressure 68 mm[Hg] Sammy Stu DO Work Phone: [facility] 01-26-2024 13:56-0500 Systolic blood pressure 100 mm[Hg] Sammy Stu DO Work Phone: [facility] 01-14-2024 10:57-0500 Body mass index (BMI) [Ratio] 28.15 kg/m2 Ella SQUIRES Work Phone: [facility] 01-14-2024 10:57-0500 Body weight 74.39 kg Ella SQUIRES Work Phone: [facility] 01-14-2024 10:57-0500 Diastolic blood pressure 64 mm[Hg] Ella Nicole PA Work Phone: [facility] 01-14-2024 10:57-0500 Systolic blood pressure 102 mm[Hg] Ella Nicole PA Work Phone: [facility] 12-30-2023 10:58-0400 Body mass index (BMI) [Ratio] 28.12 kg/m2 Sammy Stu DO Work Phone: [facility] 12-30-2023 10:58-0400 Body weight 74.3 kg Sammy Stu DO Work Phone: [facility] 12-30-2023 10:58-0400 Diastolic blood pressure 64 mm[Hg] Sammy Stu DO Work Phone: [facility] 12-30-2023 10:58-0400 Systolic blood pressure 100 mm[Hg] Sammy Stu DO Work Phone: [facility] 12-17-2023 10:27-0400 Body mass index (BMI) [Ratio] 27.6 kg/m2 Ella Bonnie PA Work Phone: [facility] 12-17-2023 10:27-0400 Body weight 72.94 kg Ella Garrison PA Work Phone: [facility] 12-17-2023 10:27-0400 Diastolic blood pressure 64 mm[Hg] Ella Garrison PA Work Phone: [facility] 12-17-2023 10:27-0400 Systolic blood pressure 100 mm[Hg] Ella Bonnie PA Work Phone: [facility] 11-26-2023 09:56-0400 Body mass index (BMI) [Ratio] 27.12 kg/m2 Ella Garrison PA Work Phone: [facility] 11-26-2023 09:56-0400 Body weight 71.67 kg Ella Garrison PA Work Phone: [facility] 11-26-2023 09:56-0400 Diastolic blood pressure 70 mm[Hg] Ella Garrison PA Work Phone: [facility] 11-26-2023 09:56-0400 Systolic blood pressure 106 mm[Hg] Ella Bonnie PA Work Phone: [facility] 10-30-2023 09:47-0400 Body mass index (BMI) [Ratio] 26.45 kg/m2 Sammy Stu DO Work Phone: [facility] 10-30-2023 09:47-0400 Body weight 69.91 kg Sammy Stu DO Work Phone: [facility] 10-30-2023 09:47-0400 Diastolic blood pressure 70 mm[Hg] Sammy Stu DO Work Phone: [facility] 10-30-2023 09:47-0400 Systolic blood pressure 120 mm[Hg] Sammy Stu DO Work Phone: [facility] 09-22-2023 13:37-0400 Body height 162.6 cm Latrice Hall MD Work Phone: [facility] 09-22-2023 13:37-0400 Body mass index (BMI) [Ratio] 25.4 kg/m2 Latrice Hall MD Work Phone: [facility] 09-22-2023 13:37-0400 Body temperature 97.3 [degF] Latrice Hall MD Work Phone: [facility] 09-22-2023 13:37-0400 Body weight 67.13 kg Latrice Hall MD Work Phone: [facility] 09-22-2023 13:37-0400 Diastolic blood pressure 62 mm[Hg] Latrice Hall MD Work Phone: [facility] 09-22-2023 13:37-0400 Systolic blood pressure 114 mm[Hg] Latrice Hall MD Work Phone: [facility] 12-24-2022 16:30-0400 Body height 162.6 cm Regan Neves 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 [employer] Work Phone: [facility] 12-24-2022 16:30-0400 Body mass index (BMI) [Ratio] 23.17 kg/m2 Regan Edinson 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 [employer] Work Phone: [facility] 12-24-2022 16:30-0400 Body weight 61.24 kg Regan Edinson 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 [employer] Work Phone: [facility] 12-24-2022 16:30-0400 Diastolic blood pressure 68 mm[Hg] Regan Neves 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 [employer] Work Phone: [facility] 12-24-2022 16:30-0400 Heart rate 71 /min Regan Neves 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 [employer] Work Phone: [facility] 12-24-2022 16:30-0400 Systolic blood pressure 108 mm[Hg] Regan Neves 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 [employer] Work Phone: [facility] 12-24-2022 11:37-0400 Body mass index (BMI) [Ratio] 23.22 kg/m2 Emile Armas MD Work Phone: [facility] 12-24-2022 11:37-0400 Body temperature 98.2 [degF] Emile Armas MD Work Phone: [facility] 12-24-2022 11:37-0400 Body weight 61.37 kg Emile Armas MD Work Phone: [facility] 12-24-2022 11:37-0400 Diastolic blood pressure 78 mm[Hg] Emile Armas MD Work Phone: [facility] 12-24-2022 11:37-0400 Heart rate 73 /min Emile Armas MD Work Phone: [facility] 12-24-2022 11:37-0400 Respiratory rate 16 /min Emile Armas MD Work Phone: [facility] 12-24-2022 11:37-0400 SaO2% (BldA) [Mass fraction] 99 % Emile Armas MD Work Phone: [facility] 12-24-2022 11:37-0400 Systolic blood pressure 123 mm[Hg] Emile Armas MD Work Phone: [facility] Encounters Encounter Date Encounter Type Care Provider Facility Start: 08-19-2024 End: 08-19-2024 Bamboo flowsheet Sammy Stu DO Work Phone: [facility] Start: 08-19-2024 End: 08-19-2024 Bamboo flowsheet Sammy Stu DO Work Phone: [facility] Start: 08-19-2024 End: 08-19-2024 ambulatory SAMMY STU Not Available Start: 06-15-2024 End: 06-15-2024 ambulatory CHEPE PERAZA [facility] Start: 06-07-2024 End: 06-07-2024 Bamboo flowsheet Di SQUIRES Work Phone: [facility] Start: 06-07-2024 End: 06-07-2024 Bamboo flowsheet Di SQUIRES Work Phone: [facility] Start: 06-07-2024 End: 06-07-2024 Office outpatient visit 15 minutes Di SQUIRES Work Phone: [facility] Comment on above: Melanocytic nevus of trunk (Primary Dx); Melanocytic nevus of face, other location; Blue nevus of right upper arm; Seborrheic keratosis; Dermatofibroma of right lower extremity; Dermatofibroma; Dermatofibroma of left lower extremity Start: 06-07-2024 End: 06-07-2024 ambulatory DI PANCHAL Not Available Start: 04-21-2024 End: 04-21-2024 ambulatory ELLA NICOLE Not Available Start: 04-21-2024 End: 04-21-2024 care visit Ella SQUIRES Work Phone: [facility] Comment on above: 6 weeks f ollow-up Start: 03-17-2024 End: 03-17-2024 Telephone encounter Cary Horn RN [facility] Comment on above: Services Start: 03-15-2024 End: 03-15-2024 Evaluation and management of inpatient LIZET WILLIS [facility] Start: 03-11-2024 End: 03-14-2024 Evaluation and management of inpatient Eulogio Garcia MD Work Phone: [facility] - GEN 4 Start: 03-11-2024 End: 03-11-2024 Patient encounter procedure Kortney Sparrow DO Work Phone: [facility] Comment on above: GA: 40w3d Start: 03-11-2024 End: 03-15-2024 ambulatory HERVE JIMENEZ [facility] Start: 03-04-2024 End: 03-04-2024 Patient encounter procedure Kortney Sparrow DO Work Phone: [facility] Comment on above: GA: 39w3d Start: 03-04-2024 End: 03-04-2024 [facility] Start: 02-26-2024 End: 02-26-2024 Patient encounter procedure [facility] Comment on above: GA: 38w3d Start: 02-26-2024 End: 02-26-2024 ambulatory [facility] Start: 02-18-2024 End: 02-18-2024 Patient encounter procedure [facility] Comment on above: GA: 37w2d Start: 02-18-2024 End: 02-18-2024 ambulatory [facility] Start: 02-13-2024 End: 02-13-2024 ambulatory KORTNEY NIETO [facility] Start: 02-13-2024 End: 02-13-2024 ambulatory HERVE KENYA [facility] Start: 02-12-2024 End: 02-12-2024 ambulatory CHEPE Pham TEA [facility] Start: 02-11-2024 End: 02-11-2024 ambulatory DUARTE JOANA [facility] Start: 01-27-2024 End: 01-27-2024 ambulatory HERVE KENYA [facility] Start: 01-26-2024 End: 01-26-2024 Bamboo flowsheet Sammy [...] 01-14-2024 flow sheet Ella SQUIRES Work Phone: [facility] Comment on above: Third trimester preg rohan; 32 weeks gestation of Start: 01-13-2024 End: 01-13-2024 ambulatory [facility] Start: 01-13-2024 End: 01-13-2024 ambulatory [facility] Start: 12-30-2023 End: 12-30-2023 Bamboo flowsheet Sammy Stu DO Work Phone: [facility] Start: 12-30-2023 End: 12-30-2023 Bamboo flowsheet Sammy Stu DO Work Phone: [facility] Start: 12-30-2023 End: 12-30-2023 ambulatory SAMMY STU Not Available Start: 12-30-2023 End: 12-30-2023 flow sheet Sammy Stu DO Work Phone: [facility] Comment on above: 30 weeks gestation o f ; Third trimester ; Aortic stenosis of mother during ; Hypothyroid in , antepartum (CMS/HCC); Vaginal discharge during in second trimester; Encounter for screening for cervical length Start: 12-29-2023 End: 12-29-2023 ambulatory [facility] Vero [facility] Start: 12-27-2023 End: 12-27-2023 Clinisync Result [...] 12-09-2023 End: 12-09-2023 Emergency department patient visit [facility] Start: 11-26-2023 End: 11-26-2023 Bamboo flowsheet Ella SQUIRES Work Phone: [facility] Start: 11-26-2023 End: 11-26-2023 Bamboo flowsheet Ella SQUIRES Work Phone: [facility] Start: 11-26-2023 End: 11-26-2023 ambulatory ELLA NICOLE Not Available Start: 11-26-2023 End: 11-26-2023 flow sheet Ella SQUIRES Work Phone: [facility] Comment on above: Second trimester pre gnancy Start: 11-18-2023 End: 11-18-2023 ambulatory SAMMY R STU [facility] Start: 11-14-2023 End: 11-14-2023 Clinisync Result Encounter Sammy Stu DO Work Phone: [facility] Unsolicited Start: 11-14-2023 End: 11-14-2023 Clinisync Result Encounter Sammy Stu DO Work Phone: [facility] Unsolicited Start: 10-31-2023 End: 10-31-2023 ambulatory [facility] Vero [facility] Start: 10-30-2023 End: 10-30-2023 Bamboo flowsheet Sammy Stu DO Work Phone: [facility] Start: 10-30-2023 End: 10-30-2023 Bamboo flowsheet Sammy Stu DO Work Phone: [facility] Start: 10-30-2023 End: 10-30-2023 ambulatory SAMMY STU Not Available Start: 10-30-2023 End: 10-30-2023 flow sheet Sammy Stu DO Work Phone: [facility] Comment on above: 21 weeks gestation o f ; Diabetes mellitus screening Start: 10-20-2023 End: 10-20-2023 [facility] Start: 10-07-2023 End: 10-07-2023 ambulatory CHEPE [facility] Start: 09-30-2023 End: 09-30-2023 ambulatory ELLA NICOLE Not Available Start: 09-22-2023 End: 09-22-2023 Office outpatient new 45 minutes Latrice Hall MD Work Phone: [facility] Comment on above: Thyroid nodule (Prim subhash Dx) Start: 09-22-2023 ambulatory LATRICE HALL Facilit y:[facility] Start: 09-09-2023 End: 09-09-2023 Chart abstracting Duarte Bernard MD Work Phone: [facility]- Medicine at [facility] Start: 09-01-2023 End: 09-01-2023 ambulatory SAMMY BOUDREAUXO Not Available Start: 06-20-2023 End: 06-20-2023 ambulatory [facility] Start: 06-02-2023 ambulatory HERVE JIMENEZ Fac ility:[facility] Start: 06-02-2023 End: 06-02-2023 Subsequent hospital visit by physician Herve Jimenez MD Work Phone: Department of Radiology Comment on above: Arrived Start: 05-23-2023 End: 05-23-2023 ambulatory HERVE JIMENEZ [facility] Start: 01-09-2023 End: 01-09-2023 Subsequent hospital visit by physician Emile Armas MD Work Phone: Department of Radiology Comment on above: Arrived Start: 01-09-2023 ambulatory HERVE JIMENEZ Fac ility:[facility] Start: 12-24-2022 End: 12-24-2022 Subsequent hospital visit by physician Regan Neves APRN-SUPERVISOR [employer] Work Phone: [facility] [place] Comment on above: Arrived Start: 12-24-2022 ambulatory REGAN NEVES Facilit y:[facility] Start: 12-24-2022 End: 12-24-2022 Office outpatient new 45 minutes Emile Armas MD Work Phone: Department of Otolaryngology Comment on above: Lymphadenopathy (Alicia ramin Dx) Start: 12-24-2022 ambulatory SELF SELF Facility:[facility] Start: 11-20-2022 End: 11-20-2022 Office consultation new/estab patient 60 min Belle Jose DO Work Phone: [facility] [place] Comment on above: Encounter for precon ception consultation (Primary Dx); Bicuspid aortic valve Start: 11-20-2022 ambulatory HERVE JIMENEZ Fac ility:[facility] Start: 08-15-2022 End: 08-15-2022 Subsequent hospital visit by physician Chepe Peraza MD Work Phone: Cardiovascular Imaging [facility] Comment on above: Canceled (Cancel Hitchins son Not Listed - Please provide detailed information) Start: 05-21-2022 End: 05-22-2022 ambulatory Jake Foster MD Facility:[facility] Start: 06-05-2021 End: 03-29-2022 Postop follow up visit related to original px Charlotte Cárdenas MD Work Phone: [facility] [place] Comment on above: Postop check (Primar y Dx) Start: 03-18-2018 End: 03-18-2018 Patient encounter procedure Darryn Kennedy Work Phone: [facility] Comment on above: Other fatigue; Lymph adenopathy of head and neck Procedures Date Procedure Procedure Detail Performing Clinician Start: 03-13-2024 Comprehensive metabo lic panel Lois Conner DO Work Phone: Start: 03-12-2024 Creatinine blood Jovanna rodriguez MD Work Phone: Start: 03-12-2024 REPEATED BEV Urrutia MD Work Phone: Start: 03-12-2024 REPEATED BEV arnold MD Work Phone: Start: 03-12-2024 Antibody screen Eulogio vazquez MD Work Phone: Start: 03-12-2024 Blood count complete automated Marine Head MD Work Phone: Start: 03-12-2024 End: 03-12-2024 Blood typing serologic abo Marine carrillo MD Work Phone: Start: 03-12-2024 REPEATED BEV arnold MD Work Phone: Start: 03-11-2024 Drug tst prsmv instr mnt chem analyzers pr date [place] MD Work Phone: Start: 01-26-2024 Urnls dip stick/tabl et rgnt non-auto w/o micrscp Sammy Stu DO Work Phone: Start: 01-14-2024 Urnls dip stick/tabl et rgnt non-auto w/o micrscp Ella SQUIRES Work Phone: Start: 12-30-2023 Urnls dip stick/tabl et rgnt non-auto w/o micrscp Sammy Stu DO Work Phone: Start: 12-27-2023 TB UA (CLEAN/CATCH) RAIL WALKER/MICRO IF IND. Sammy Peraza DO Work Phone: Start: 12-17-2023 Urnls dip stick/tabl et rgnt non-auto w/o micrscp Ella SQUIRES Work Phone: Start: 11-26-2023 Urnls dip stick/tabl et rgnt non-auto w/o micrscp Ella SQUIRES Work Phone: Start: 11-14-2023 TB UA (CLEAN/CATCH) RAIL WALKER/MICRO IF IND. Sammy Peraza DO Work Phone: Start: 10-30-2023 Urnls dip stick/tabl et rgnt non-auto w/o micrscp Sammy Peraza DO Work Phone: Start: 09-30-2023 Microscopic observat ion [Identifier] in Cervix by Cyto stain Chs Risk Start: 09-22-2023 US Unspecified body region Latrice Hall MD Work Phone: Start: 09-22-2023 Us soft tissue head & neck real time imge docm Latrice Hall MD Work Phone: Start: 08-21-2023 Antibody screen Duarte Bernard MD Work Phone: Start: 08-21-2023 Hepatitis c antibody No t In System Ref Prov Start: 08-21-2023 HIV 1&2 AB/AG SCREEN (P24 AG) Not In System Ref Prov Start: 08-21-2023 Iaad ia hepatitis b surface antigen Not In System Ref Prov Start: 08-21-2023 TYPE AND SCREEN Not In System Ref Prov Start: 07-31-2023 ULTRASOUND OFFICE Not I n System Ref Prov Start: 01-09-2023 Radiologic exam esop hagus single contrast study Regan Neves 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 [employer] Work Phone: Plan of Treatment Date Care Activity Detail Author Start: 01-07-2034 DTaP,Tdap and Td Vaccines (6 - Td or Tdap) DTaP,Tdap and Td Vaccines (6 - Td or Tdap) [facility] Start: 09-29-2026 Screening for malign ant neoplasm of cervix Pap Smear [facility] Start: 06-07-2025 End: 06-07-2025 Patient encounter procedure 06/07/2025 10:20 AM EDT Office Visit [facility] [address] [place] [address] [place] [address] [place] [id number] [facility] Start: 03-13-2025 Tobacco Screening Tobacco Screening [facility] Start: 03-11-2025 Adult BMI Screening Adult [facility] Screen [facility] System Start: 03-11-2025 Tobacco Screening Tobacco Screening [facility] Start: 03-04-2025 Adult BMI Screening Adult BMI Screen ing [facility] Start: 03-04-2025 Tobacco Screening Tobacco Screening [facility] Start: 02-25-2025 Adult BMI Screening Adult BMI Screen ing [facility] Start: 02-25-2025 Tobacco Screening Tobacco Screening [facility] Start: 02-17-2025 Adult BMI Screening Adult BMI Screen ing [facility] Start: 02-17-2025 Tobacco Screening Tobacco Screening [facility] Start: 10-05-2024 End: 10-05-2024 Patient encounter procedure 10/05/2024 2:00 PM EDT Office Visit [facility] [address] [place] [phone] Sammy Peraza DO [address] [place] [address] [facility] Start: 06-07-2024 End: 06-07-2024 Patient encounter procedure [facility] Comment on above: Arrived Start: 05-28-2024 End: 05-28-2024 Patient encounter procedure 05/28/2024 10:40 AM EDT Office Visit [facility] [address] [place] [address] Di Panchal, PA [address] [place] [address] [facility] Start: 03-11-2024 End: 03-11-2024 Patient encounter procedure 03/11/2024 1:30 PM EST Routine [facility] [address] [place] [address] Kortney Sparrow, [address] [facility] [address] [place] [address] [facility] Start: 03-04-2024 End: 03-04-2024 Patient encounter procedure 03/04/2024 2:15 PM EST Routine [facility] [address] [place] [address] Kortney Sparrow, [address] [facility] [address] [address] [facility] Start: 02-26-2024 End: 02-26-2024 Patient encounter procedure 02/26/2024 3:[address] [facility] [address] [place] [address] [facility] Start: 02-11-2024 End: 02-11-2024 Patient encounter procedure 02/11/2024 2:00 PM EST Routine [facility] [address] [facility] [place] [phone] Sammy Peraza DO [address] [place] [address] [facility] Start: 01-26-2024 End: 01-26-2024 Patient encounter procedure 01/26/2024 1:30 PM EST Routine [facility] [address] [facility] [place] [phone] Sammy Peraza DO [address] [place], [place] [phone] [facility] Start: 01-14-2024 End: 01-14-2024 Patient encounter procedure 01/14/2024 10:30 AM EST Routine [facility] [address] [facility] [place] [phone] Ella Nicole PA [address] [place] [address] [facility] Start: 12-30-2023 End: 12-29-2024 US biophysical profile w non stress test US biophysical profile w non stress test Imaging Routine Aortic stenosis of mother during Hypothyroid in , antepartum ([facility]) Expected: 12/30/2023 (Approximate), Expires: 12/29/2024 [facility] Work Phone: Comment on above: Expected: 12/30/2023 (Approximate), Expires: 12/29/2024 Start: 12-30-2023 End: 12-29-2024 US for US OB AMNIOTIC FLUID VOLUME Imaging Routine Vaginal discharge during in second trimester Expected: 12/30/2023 (Approximate), Expires: 12/29/2024 [facility] Comment on above: Expected: 12/30/2023 (Approximate), Expires: 12/29/2024 Start: 12-30-2023 End: 12-29-2024 US Pelvis transvaginal US OB transvaginal Imaging Routine Encounter for screening for cervical length Expected: 12/30/2023 (Approximate), Expires: 12/29/2024 [facility] Comment on above: Expected: 12/30/2023 (Approximate), Expires: 12/29/2024 Start: 12-30-2023 End: 12-30-2023 Patient encounter procedure 12/30/2023 10:30 AM EDT Routine [facility] [address] [facility] [place] [phone] Sammy Peraza DO [address] [place] [address] [facility] Start: 12-17-2023 End: 12-17-2023 Patient encounter procedure [facility] Comment on above: Arrived Start: 11-26-2023 End: 11-26-2023 Patient encounter procedure 11/26/2023 9:50 AM EDT Routine [facility] [address] [place] [phone] Ella Nicole PA [address] [place], [place] [phone] [facility] Start: 11-09-2023 Influenza vaccination [facility] Start: 10-30-2023 End: 10-29-2024 CBC panel - Blood by Automated count CBC Lab Routine Diabetes mellitus screening Expected: 10/30/2023 (Approximate), Expires: 10/29/2024 [facility] Work Phone: Comment on above: Expected: 10/30/2023 (Approximate), Expires: 10/29/2024 Start: 10-30-2023 End: 10-29-2024 Measurement of glucose 1 hour after glucose challenge for glucose tolerance test Glucose tolerance, 1 hour Lab Routine Diabetes mellitus screening Expected: 10/30/2023 (Approximate), Expires: 10/29/2024 [facility] Comment on above: Expected: 10/30/2023 (Approximate), Expires: 10/29/2024 Start: 10-20-2023 End: 10-20-2023 Patient encounter procedure [facility] Start: 06-03-2023 ambulatory Ambulatory Facility:[facility] Villanue[facility] Start: 01-09-2023 End: 01-09-2023 ambulatory 01/09/2023 8:30 AM EDT Rehab Services Visit [facility] [address] [place] [phone] [facility] Start: 01-09-2023 End: 01-09-2023 Patient encounter procedure 01/09/2023 8:30 AM EDT Appointment Department of Radiology [address] [place] [address] Department of Radiology Start: 12-24-2022 End: 12-25-2023 CT Neck W contrast IV [facility] Comment on above: Expected: 12/24/2022 , Expires: 12/25/2023 1 Occurrences starti ng 12/24/2022 until 12/24/2022 Start: 12-24-2022 End: 12-25-2023 RF videography Hypopharynx and Esophagus Views W liquid and paste contrast PO during swallowing XR FLUORO MODIFIED BARIUM SWALLOW-ENT ONLY Imaging Routine Lymphadenopathy Expected: 12/24/2022, Expires: 12/25/2023 [facility] Comment on above: Expected: 12/24/2022 , Expires: 12/25/2023 Start: 11-08-2022 COVID-19 VACCINE ( season) COVID-19 VACCINE ( season) [facility] Start: 11-08-2022 Influenza vaccination O [facility] Start: 11-08-2020 Influenza vaccination INFLUENZA VACC INE (#1) [facility] Start: 03-27-2018 End: 03-27-2018 Ambulatory 03/27/2018 Appointment Ultrasound Darryn Kennedy, [employer] [address] [phone] Department of Radiology Start: 03-18-2018 End: 03-18-2019 US scan of neck US NECK SOFT TISSUE Routine Other fatigue Lymphadenopathy of head and neck Expected: 03/18/2018, Expires: 03/18/2019 [facility] Work Phone: Comment on above: Expected: 03/18/2018 , Expires: 03/18/2019 Start: 11-08-2017 Influenza vaccination INFLUENZA VACC INE (#1) [facility] Work Phone: Start: 2015 Screening for malign ant neoplasm of cervix [facility] Start: 2013 DTaP,Tdap and Td Vaccines (1 - Tdap) DTaP,Tdap and Td Vaccines (1 - Tdap) [facility] Start: 2013 Hepatitis B vaccination HEP B VACCINE (1 of 3 - 19+ 3-dose series) [facility] Start: 2013 Third diphtheria, tetanus and acellular pertussis (DTaP) vaccination TDAP (ADULT) [facility] Start: 02-04-2012 Adult BMI Follow Up Plan Adult BMI F ollow Up Plan [facility] Start: 02-04-2012 Adult BMI Screening Adult BMI Screen ing [facility] Start: 02-04-2012 GONORRHEA SCREEN GONORRHEA SCREEN [facility] Work Phone: Start: 02-04-2012 Tetanus vaccination TETANUS [facility] Start: 2010 Screening for Chlamy kyle trachomatis CHLAMYDIA SCREEN [facility] Work Phone: Start: 2009 HIV screening HIV SCREENING DISCUSSI ON [facility] Start: 2007 HIV screening HIV SCREENING DISCUSSI ON [facility] Work Phone: Start: 2006 Depression Screening Depression Scre [facility] Start: 2006 Tobacco Screening Tobacco Screening [facility] Start: 03-13-2005 Tetanus vaccination TETANUS [facility] Start: 2005 Vaccination for jelly n papillomavirus HPV VACCINE ADOL (1 - Female 3-dose series) [facility] Work Phone: Start: 02-04-2000 PNEUMOCOCCAL VACCINE SERIES (1 of 2 - PCV) PNEUMOCOCCAL VACCINE SERIES (1 of 2 - PCV) [facility] Start: 1999 COVID-19 VACCINE (1) COVID-19 VACCIN E (1) [facility] Start: 1994 COVID-19 VACCINE (#1) COVID-19 VACCI NE (#1) [facility] Start: 1994 Hepatitis C antibody , confirmatory test HEPATITIS C VIRUS SCREENING [facility] Start: 1994 Hepatitis C screening HEPATITI S C VIRUS SCREENING [facility] CHLAMYDIA TRACHOMATI S (GENITO/STI) CHLAMYDIA TRACHOMATIS (GENITO/STI) Lab Routine Vaginal discharge during in second trimester Ordered: 12/30/2023 [facility] Comment on above: Ordered: 12/30/2023 End: 03-13-2024 Discontinue all L&D and recovery orders Discontinue all L&D and recovery orders OB Routine Once for 1 Occurrences starting 03/13/2024 until 03/13/2024 [facility] Work Phone: Comment on above: Once for 1 Occurrenc es starting 03/13/2024 until 03/13/2024 Laryngoscopy flexibl e diagnostic [place] LARYNGOSCOPY FLEXIBLE DIAGNOSTIC [place] Charge Routine Lymphadenopathy Ordered: 12/24/2022 [facility] Comment on above: Ordered: 12/24/2022 Neisseria gonorrhoea e DNA [Presence] in Unspecified specimen by VANESSA with probe detection Neisseria gonorrhea DNA probe, direct Lab Routine Vaginal discharge during in second trimester Ordered: 12/30/2023 [facility] Comment on above: Ordered: 12/30/2023 SURESWAB(R) ADVANCED VAGINITIS PLUS, TMA SURESWAB(R) ADVANCED VAGINITIS PLUS, TMA Pathology and Cytology Routine Vaginal discharge during in second trimester Ordered: 12/30/2023 [facility] Comment on above: Ordered: 12/30/2023 End: 06-02-2023 US Thyroid gland [facility] Work Phone: Comment on above: 1 Occurrences starti ng 06/02/2023 until 06/02/2023 Immunizations Immunization Date Immunization Notes Care Provider Fa ivelisse 01-08-2024 tetanus toxoid, redu allison diphtheria toxoid, and acellular pertussis vaccine, adsorbed [facility] Risk [facility] 12-25-2022 influenza, injectabl e, quadrivalent, preservative free [facility] 12-25-2022 influenza virus vaccine, unspecified formulation Latrice Hall MD Work Phone: [facility] 01-08-2016 influenza, injectabl e, quadrivalent, preservative free [facility] 01-08-2016 influenza virus vaccine, unspecified formulation Charlotte Cárdenas MD Work Phone: [facility] 01-02-2015 influenza, seasonal, injectable, preservative free [facility] 12-19-2013 influenza, seasonal, injectable, preservative free [facility] 03-13-1995 DTP-Haemophilus influenzae type b conjugate vaccine [facility] 02-06-1995 measles, mumps and rubella virus vaccine [facility] 1994 DTP-Haemophilus influenzae type b conjugate vaccine [facility] 1994 trivalent poliovirus vaccine, live, oral [facility] 1994 DTP-Haemophilus influenzae type b conjugate vaccine [facility] 1994 trivalent poliovirus vaccine, live, oral [facility] 1994 DTP-Haemophilus influenzae type b conjugate vaccine [facility] 1994 trivalent poliovirus vaccine, live, oral [facility] 1994 haemophilus influenz ae type b vaccine, conjugate unspecified formulation [facility] 1994 haemophilus influenz ae type b vaccine, conjugate unspecified formulation [facility] Payers Date Payer Category Payer Unknown [id number] 2023 Commercial Managed Care - POS [id number] 2023 Managed Care HMO (unspecified) [id number] 2023 Private Health Insurance [id number] .[id number]. 315 2023 Private Health Insurance [id number] 2023 Unknown [id number] 2020 Unknown [id number]. 1.13.172.2.7.3.470578. 315 2020 Unknown [id number] 1994 Unknown [id number] 2.16.840.1.200851.3.579.2.196 1994 Unknown [id number] 2.16.840.1.440964.3.579.2.196 1994 Unknown [id number] 2.16.840.1.726654.3.579.2.196 1994 Unknown [id number] 2.16.840.1.518481.3.579.2.1260 1994 Unknown [id number] 2.16.840.1.687569.3.579.2.594 1994 Unknown [id number] 2.16.840.1.989216.3.579.2.594 1994 Unknown [id number] 2.16.840.1.062164.3.579.2.594 1994 Unknown [id number] 2.16.840.1.651968.3.579.2.594 1994 Unknown [id number] 2.16.840.1.414061.3.579.2.594 1994 Unknown [id number] 2.16.840.1.220784.3.579.2.594 1994 Unknown [id number] 2.16.840.1.438724.3.579.2.594 1994 Unknown [id number] 2.16.840.1.231541.3.579.2.594 1994 Unknown [id number] 2.16.840.1.080952.3.579.2.173 1994 Unknown [id number] 2.16.840.1.522014.3.579.2.173 1994 Unknown [id number] 2.16.840.1.840061.3.579.2.1285 1994 Unknown [id number] 2.16.840.1.872785.3.579.2.1285 1994 Unknown [id number] 2.16.840.1.324182.3.579.2.1285 1994 Unknown [id number] 2.16840.1.580567.3.579.2.1285 1994 Unknown [id number] 2.16840.1.629084.3.579.2.1285 1994 Unknown [id number] 2.16840.1.993899.3.579.2.1285 1994 Unknown [id number] 2.16840.1.395192.3.579.2.1285 1994 Unknown [id number] 2.840.1.315797.3.579.2.1285 1994 Unknown [id number] 2.840.1.880830.3.579.2.1285 1994 Unknown [id number] 2.840.1.799953.3.579.2.1285 1994 Unknown [id number] 2.16840.1.280707.3.579.2.1285 1994 Unknown [id number] 2.840.1.246562.3.579.2.1285 1994 Unknown [id number] 2.16840.1.565418.3.579.2.1285 1994 Unknown [id number] 2.16840.1.688780.3.579.2.1285 1994 Unknown [id number] 2.16840.1.131152.3.579.2.1285 1994 Unknown [id number] 2.16840.1.302955.3.579.2.1285 1994 Unknown [id number] 2.16.840.1.211439.3.579.2.128 1994 Unknown [id number] 2.16.840.1.407088.3.579.2.1285 1994 Unknown [id number] 2.16.840.1.749835.3.579.2.1285 1994 Unknown [id number] 2.16.840.1.237831.3.579.2.1285 1994 Unknown [id number] 2.16.840.1.925724.3.579.2.1285 1994 Unknown [id number] 2.16.840.1.034871.3.579.2.1285 1994 Unknown [id number] 2.16840.1.203962.3.579.2.1258 1994 Unknown [id number] 2.16840.1.377320.3.579.2.1258 1994 Unknown [id number] 2.16840.1.092662.3.579.2.1258 1994 Unknown [id number] 2.16.840.1.200256.3.579.2.1258 1994 Unknown [id number] 2.16.840.1.183178.3.579.2.1258 1994 Unknown [id number] 2.16.840.1.567088.3.579.2.1258 1994 Unknown [id number] 2.16.840.1.401451.3.579.2.1258 1994 Unknown [id number] 2.16.840.1.412980.3.579.2.1258 1994 Unknown [id number] 2.16.840.1.967335.3.579.2.1258 1994 Unknown [id number] 2.16.840.1.043791.3.579.2.1258 1994 Unknown [id number] 2.16.840.1.761998.3.579.2.1259 Social History Date Type Detail Facility Tobacco smoking stat us NHIS Unknown if ever smoked [facility] Work Phone: Start: 1995 Sex Assigned At Not on file [facility] Work Phone: Start: 04-21-2018 End: 05-27-2023 Tobacco smoking status NHIS Never smoked tobacco [facility] Start: 04-21-2018 End: 05-27-2023 Tobacco use and exposure Smokeless tobacco non-user [facility] Start: 06-05-2021 End: 09-22-2023 Alcohol intake Current drinker of alcohol (finding) [facility] Start: 04-15-2020 History SDOH Alcohol Frequency 2 [facility] Start: 04-15-2020 History SDOH Alcohol Std Drinks 1 [facility] Start: 05-10-2021 History SDOH Alcohol Comment 1-2 drinks per month [facility] Start: 05-26-2021 End: 06-05-2021 Exposure to SARS-CoV-2 (event) Not sure [facility] Start: 04-15-2020 End: 06-07-2024 History of Social function [facility] Start: 04-15-2020 End: 06-07-2024 Alcohol Use Disorder Identification Test - Consumption [AUDIT-C] [facility] How often to you hav e a drink containing alcohol? Monthly or less [facility] How many standard dr inks containing alcohol do you have on a typical day? 1 or 2 [facility] How often do you hav e 6 or more drinks on 1 occasion? Never [facility] Start: 03-16-2017 Gender identity Identifies as female gender (finding) [facility] Adolescent depressio n screening assessment 0 [facility] Start: 1995 Sex assigned at Female [facility] Start: 11-26-2023 End: 06-07-2024 Alcoholic beverage intake Ex-drinker (finding) [facility] Start: 06-16-2023 [facility] Start: 06-29-2020 Alcohol Comment rarely [facility] Start: 10-11-2014 Sex Female (finding) [facility] Functional Status Date Assessment Result Facility [facility] Clinical Notes 06-05-2021 to 06-15-2024 TAVIA Jackson - 06/07/2024 10:20 AM TAVIA Phan - 04/21/2024 11:20 AM ESTTelephone Encounter - Cary Horn RN - 03/17/2024 10:32 AM Chelo Dorman RN - 03/14/2024 5:02 PM EST Note Date & Type Note Facility 06-15-2024 Note Lonnie Peres [address] [facility] [id number] June 15, 2024 Patient: Lisa Cardenas Date of : 1995 Date of Visit: 06/15/2024 Dear Herve Jimenez MD: I had the pleasure of seeing Lisa Cardenas, at our pediatric cardiology clinic on 06/15/2024 for evaluation of Bicuspid aortic valve with mild stenosis, trivial regurgitation, and ascending aortic dilation.. Lisa [age] 30.5 y.o. female who I saw when she went in for delivery of her first child. She had no cardiac related issues and delivered vaginally without any cardiac complications. She gave to a normal fetus who weighed 3310 g with normal Apgars and had a normal echocardiogram. She was discharged home uneventfully and has been breast-feeding her with good milk production and no cardiac issues at home. Only rarely does she experience some positional dizziness without any visual blackouts or syncope and she has not experienced any tachycardia. She is taking vitamins but has not had any major illnesses. She has not been to the emergency room for any cardiac issues and her complete noncardiac review of systems is unremarkable. She has lost a significant amount of weight since delivery and she has been feeling fairly well and is likely ready to go back to work. She does use SBE prophylaxis for all appropriate procedures and really has felt good with improving stamina. Current Outpatient Medications Medication Sig Dispense Refill [...] when swallowed pill Other Reaction(s): ulcer esophagus No past medical history on file. Past Surgical History: Procedure Laterality Date MR CHEST ANGIO WO IV CONTRAST 08/15/2022 MR CHEST ANGIO WO IV CONTRAST 08/15/2022 No family history on file. Review of Systems - Respiratory ROS, Gastrointestinal ROS, Genitourinary ROS, Hematologic, Endocrinologic ROS, Musculoskeletal, Immunologic, Infectious ROS, Neurologic ROS are unremarkable. On physical exam the patient was alert, cooperative, acyanotic and in no apparent distress. Vitals: 06/15/24 1112 BP: 109/71 BP Location: Right arm Patient Position: Sitting BP Cuff Size: Adult Pulse: 73 SpO2: 98% Weight: 67.1 kg (148 lb) Height: 1.641 m (5' 4.61 ) HEENT was normal. Lungs were clear to auscultation. Neck exam demonstrated no JVD or AI. Chest was normal active without thrill. There was a regular rate and rhythm with a normal S1, Aortic ejection click, and S2 with physiologic splitting of the S2. There was a soft grade 2/6 systolic ejection murmur at the right upper parasternal border with no diastolic component. Abdominal exam was normal with no hepatosplenomegaly. Peripheral extremities demonstrated symmetrical pulses and pulse pressure without BF delay. No clubbing, cyanosis, or edema was seen with normal capillary refill. Skin & joint exam was normal. EKG demonstrated: Sinus rhythm at a rate of 64 bpm with normal cardiac intervals and persistent juvenile T wave in the anterior precordial leads. Echocardiogram demonstrated: Bicuspid aortic valve Trivial to [...] 36 weeks and 3 days (YE 03/08/2024) In conclusion, Lisa Is a 30-1/2-year-old female who I follow with bicuspid aortic valve with poststenotic dilatation of the ascending aorta measuring almost 39 mm. She has a mild degree of aortic valve stenosis and trivial aortic insufficiency. She recently did well with her last and had no major issues from a cardiac perspective giving to a normal fetus with excellent scores although she did sustained a perineal laceration. She has recovered from her extremely well and looks wonderful today. Blood pressures were excellent and her EKG showed no significant bennett (more content not included)... [facility] 06-07-2024 History of Present illness Narrative Skin Check Location: Patient requests a full body skin examination Dermatologic history: no history of skin cancer, no history of atypical moles, no family history of melanoma Last visit: 1 year ago Established patient Lesions: Location: right chest Duration: months Quality: denies pain, denies itch, denies bleeding Modifying factors: asymptomatic Associated symptoms: raised, pink, irregularly shaped Treatments: none Location # 2: right lower back Duration: since 02/2024 Quality: denies pain, denies itch, denies bleeding Modifying factors: asymptomatic Associated symptoms: like a zit, pink and raised Treatments: none Location #3: left thigh Duration: months Quality: denies pain, denies itch, denies bleeding Modifying factors: Patient reports she feels like she has to be careful around it when she shaves Associated symptoms: pink, raised Treatments: none All pertinent medical history, medications, and allergies were reviewed. General Exam: alert, oriented to person, place, and time, normal affect, well appearing Unaccompanied Scalp, Examined , exam limited by hair Right leg Examined Head, Face Examined Left leg Examined Neck Examined Right foot Examined Chest Examined Left foot Examined Back Examined Buttocks Examined Abdomen Examined Digits,nails: Not examined Right arm Examined Patient wearing nail niuean, Denies dark streaks on toenails Left arm Examined Lymphatics: Not examined Hands Examined 1. Melanocytic nevus of trunk Scattered benign appearing, regular brown to light brown melanocytic papules and macules with similar morphology Counseled regarding these benign growths. Rarely, a nevus can develop into malignant melanoma, so any changing nevi should be promptly re-evaluated. 2. Melanocytic nevus of face, other location Head - Anterior (Face) Scattered benign appearing, regular brown to light brown melanocytic papules and macules with similar morphology Counseled regarding these benign growths. Rarely, a nevus can develop into malignant melanoma, so any changing nevi should be promptly re-evaluated. 3. Blue nevus of right upper arm Right Upper Arm - Posterior Blue-cornelius macule Counseling and reassurance given. No treatment necessary. 4. Seborrheic keratosis Left Lower Back Stuck on verrucous, variably pigmented papules and plaques. Patient was counseled regarding these benign growths. Removal is normally not necessary, but they may be removed if they are symptomatic or for cosmetic reasons. 5. Dermatofibroma of right lower extremity Right Thigh - Anterior Firm brown papule that dimples with lateral pressure. Discussed that these are benign scars on the skin. If lesion is changing/symptomatic, return to office to have lesion re-evaluated 6. Dermatofibroma (2) Right Chest, Right Lower Back Firm brown papule that dimples with lateral pressure. Discussed that these are benign scars on the skin. If lesion is changing/symptomatic, return to office to have lesion re-evaluated. Offered punch biopsy, patient declines today. Educational literature provided. 7. Dermatofibroma of left lower extremity Left Thigh - Anterior Firm brown papule that dimples with lateral pressure. Discussed that these are benign scars on the skin. If lesion is changing/symptomatic, return to office to have lesion re-evaluated Next Visit: 1 year documented in this encounter [facility] 04-21-2024 History of Present illness Narrative Reason for Appointment: Patient ID: Lisa Cardenas is a 29 y.o. female who presents for Care Patient presents today for Post Follow Up appointment. MEDICATIONS Current Outpatient Medications Medication Instructions omega-3 1000 MG capsule capsule [place]-3 Fatty Acids (OMEGA 3 PO) Take by [...] reviewed. Vitals: Estimated body mass index is 26.28 kg/m as calculated from the following: Height as of 05/27/22: 5' 4 . Weight as of this encounter: 153 lb 1.9 oz. BP: 104/70 Patient's last menstrual period was 06/02/2023. ASSESSMENT & PLAN ICD-10-CM 1. 6 weeks follow-up Z39.2 Post Follow Up: Patient is doing well. Patient presents today for 6 week visit. Patient is s/p Vaginal delivery. Patient states depression but denies suicidal and homicidal ideations. All options were discussed with the patient regarding control and patient desires none at this time. Patient discussed complications at delivery when her jewell fell out, concerned that urethra looked abnormal. Examined today and looked normal. Pelvic floor therapy request will be sent per request Follow Up: Patient is to return for annual unless needed otherwise. Documented by TAVIA Parsons on behalf of: TAVIA Parsons documented in this encounter [facility] 03-17-2024 Miscellaneous Notes 5 day call back- pt reports baby is well.at least 8 or times in 24 hours. Reports at least 6 wet and 3 bm's in 24 hour period. Had appt with peds and baby has already gained weight since discharge No questions or concerns at this time. Encouraged to call with any questions/concerns or for outpatient appt at [phone] documented in this encounter [facility] 03-17-2024 Telephone encounter Note 5 day call back- pt reports baby is well.at least 8 or times in 24 hours. Reports at least 6 wet and 3 bm's in 24 hour period. Had appt with peds and baby has already gained weight since discharge No questions or concerns at this time. Encouraged to call with any questions/concerns or for outpatient appt at [phone] [facility] 03-15-2024 Note I saw cline and th e baby in consultation and they are both doing fine. [facility] 03-14-2024 Nurse Note Mom/baby AVS reviewed with mother - pt signed AVS and verbalized understanding. Baby bands were reviewed with parents and HUGs tag removed. Baby placed in car seat by parents. Mother was taken to car in a wheelchair with the baby on mothers lap. [facility] 03-14-2024 Nurse Note Mom/baby AVS reviewed with mother - pt signed AVS and verbalized understanding. Baby bands were reviewed with parents and HUGs tag removed. Baby placed in car seat by parents. Mother was taken to car in a wheelchair with the baby on mothers lap. Patient admitted to PP unit. Upon assessment, patient appears to be jaundiced. Notified Dr. Conner. Dr. Conner ordered STAT CMP, and CBC. documented in this encounter [facility] 03-14-2024 Miscellaneous Notes Return for latch assist. Infant latches but continues to be sleepy at the breast. Weighed prior to discharge and weight loss 8.4%. Feeding plan initiated as weight dropping on the [place] Weight loss curve and no wet diapers today. fed at the breast for 10 minutes followed by supplementation with formula via paced feeding technique. Discussed that it is common for babies to need time to learn the skill of . Encouraged to follow the feeding plan below to ensure baby is getting enough milk and stimulate/protect mother's milk supply. Written feeding plan provided. Patient verbally understands teaching. If your baby is greater than 24 hours old and is not going well: Offer the breast every 1-3 hours. If baby does not take a full feed at breast, move to step 2. Supplement baby with pumped milk or formula using paced bottle feeding (see below for supplement amount) Pump for 15-20 minutes with double electric breast pump Baby's Age (Hours) Average Intake (Per Feed) <24 2-10 mls 24-48 5-15 mls 48-72 15-30 mls 72-96 30-60 mls Patient educated that this feeding plan is meant to be short term: it is a bridge to protect milk supply and feed the baby while they get bigger, stronger, and more effective at . Encouraged to make an outpatient appointment after discharge with by calling [phone]. Encouraged patient to practice paced bottle feeding to help the manage the flow of milk from the bottle nipple and provide developmental support to to facilitate safe and effective feeding. Patient provided information below: -Swaddle infant with hands up near face, legs in flexion -Hold close to your body, side-lying, making sure to support infant's back and neck -Hold bottle/nipple parallel to the floor -Give a few sucks on the bottle (3-4) then tilt the bottle back to give a break , then tilt bottle slightly forward to allow to suckle at bottle and get milk. This mimics the flow of the breast. Do not remove bottle nipple from 's mouth while pacing. -May need to burp more frequently, as they will take in more air. Problem: Pain Goal: Patient goal is pain score less than 4, able to rest, and participant in treatment plan as appropriate Description: INTERVENTIONS: 1. Encourage patient or legal construction representative to report early pain and ask for pain medicine when needed 2. Assess pain using appropriate pain scale and include the scale used when documenting 3. Administer analgesics based on type and severity of pain and evaluate response within appropriate time frame 4. Implement non-pharmacological measures as appropriate and evaluate response 5. Consider cultural and social influences on pain and pain management 6. Notify LIP if interventions ineffective or patient reports new pain 7. Monitor vital signs including pulse ox, end-tidal CO2 based on pain intervention 8. Reassess pain per policy 9. Teach patient or legal construction representative interventions for comforting Outcome: Progressing Note: Evaluation of progress towards goal: Encouraging pt to report pain and ask for pain medication prn, pt rate pain at_2_on scale of 0-10,goal is less than 4 at the end of shift, pt pain improving,encourging non-pharmacutical pain relief, re-evaluating Q4 hours and per unit policy Problem: Safety Goal: Patient will be injury free during hospitalization Description: INTERVENTIONS: 1. Assess patient's risk for falls and implement fall prevention plan of care per policy 2. Provide and maintain a safe environment 3. Proper use of double Identifiers 4. Medication administration using the 5 rights 5. Hand hygiene 6. Specimens are labeled at the bedside 7. Instruct patient/ patient construction representative about use of safety devices 8. Include patient/ patient construction representative in decisions related to safety Outcome: Progressing Note: Evaluation of progress towards goal: Pt is free from falls and injury, call light in reach, side rales up x2, double identifiers when passing meds or collecting labs Problem: Infection Goal: Absence of infection during hospitalization Description: INTERVENTIONS 1. Assess and monitor for signs and symptoms of infection. 2. Monitor lab/diagnostic results. 3. Monitor all insertion sites i.e., indwelling lines, tubes and drains. 4. Monitor endotracheal (as able) and nasal secretions for changes in amount and color. 5. Administer medications as ordered. 6. Instruct and encourage patient and family to use good hand hygiene technique. 7. Identify and instruct patient/patient construction representative in use of appropriate isolation precautions for identified infection/symptoms. 8. Provide and discuss with patient/patient construction representative on educational MDRO sheet. 9. Encourage and monitor nutritional status daily and consult drafter seismograph if indicated. 10. Implement neutropenic guidelines as needed. Outcome: Progressing Note: Evaluation of progress towards goal: Pt is afebrile, no s/s of infections all vitals and lab values Q6 hours and PRN, administering medications as ordered, encouraging family to use hand hygiene Problem: Knowledge Deficit Goal: Patient/patient construction representative demonstrates understanding of disease process, treatment plan, medications, and discharge instructions Description: INTERVENTIONS 1. Complete learning assessment and assess knowledge base 2. Provide teaching at level of understanding 3. Provide teaching via preferred learning method(s) Outcome: Progressing Note: Evaluation of progress towards goal: Parent verbalized understanding of POC, encourage questions Problem: Discharge Planning Goal: Discharge to post-acute care, other facility, or home with appropriate resources Description: Patient's goal is: INTERVENTIONS 1. Conduct assessment to determine patient/family and health care team treatment goals, and need for post-acute services based on payer coverage, community resources, and patient preferences, and barriers to discharge 2. Coordinate with Social work, Care Navigation, and Utilization Review to arrange appropriate level of services according to patient's needs based on patient preference and payer coverage in collaboration with the physician and health care team 3. Address psychosocial, clinical, and financial barriers to discharge as identified in assessment in conjunction with the patient/family and health care team 4. Consult appropriate ancillary services (i.e.. PT/OT/ST, etc) as needed 5. Communicate with and update the patient/family, physician, and health care team regarding progress on the discharge plan 6. Identify discharge learning needs (meds, wound care, etc). 7. Arrange for needed discharge transportation as appropriate Outcome: Progressing Note: Evaluation of progress towards goal: Discharge in 1-2 days Problem: Low Risk Fall Score Description: [place] Fall Score of 0 - 24 or indicated by [facility] Assessment Goal: Patient should be free from fall Description: Interventions: 1. [place] to environment 2. Hourly rounds addressing the 4 P's (Pain, Positioning, Possessions, Potty) 3. Clear area of hazards (spills, clutter, electrical cords, unnecessary equipment) 4. Place equipment (bed & TV controls, call light, phone, urinal) within reach 5. Encourage patient to wear glasses and hearing aides as appropriate 6. Maintain bed in lowest position 7. Lock wheels on bed/wheelchair 8. Provide adequate lighting, including night light 9. Assess need for additional bedding, food/fluids, pain med's prior to sleep/routinely 10. Provide gripper slippers or personal non-skid footwear 11. Teach patient and patient construction representative to maintain environment for safety and engage in all aspects of fall prevention program Outcome: Progressing Note: Evaluation of progress towards goal: Pt is free from fall and injury, up independently, call light in reach and encouraging pt to call out prior to ambulation, bed and chair locked, bed rail up x2, room clear of hazards, hourly rounding provided, adequate lighting provided, non-skid footwear on prn for ambulation. Problem: Moderate - High Risk Fall Score Description: [place] Fall Score of =/> 25 or indicated by [facility] Assessment Goal: Patient should be free from fall Description: Interventions: 1. [place] to environment 2. Hourly rounds addressing the 4 P's (Pain, Positioning, Possessions, Potty) 3. Clear area of hazards (spills, clutter, electrical cords, unnecessary equipment) 4. Place equipment (bed & TV controls, call light, phone, urinal) within reach 5. Encourage patient to wear glasses and hearing aides as appropriate 6. Maintain bed in lowest position 7. Lock wheels on bed/wheelchair 8. Provide adequate lighting, including night light 9. Assess need for additional bedding, food/fluids, pain med's prior to sleep/routinely 10. Provide gripper slippers or personal non-skid footwear 11. Teach patient and patient construction representative to maintain environment for safety and engage in all aspects of fall prevention program 12. Remind patient to call for help before getting out of bed 13. Initiate bed/chair/exit alarms supportive devices as appropriate, (chair wedge, no-skid floor mat, raised edge mattress, hip protectors) 14. Locate patient bed assignment for optimal visualization 15. Evaluate and identify Safe Patient Handling Equipment needs 16. Provide supervision when out of bed or chair 17. Utilize gait belt as needed to assist with ambulation 18. Place adaptive equipment (cane, walker) within reach 19. Request patient construction representative bring adaptive equipment/mobility aids from home or obtain and provide as needed 20. Consult pharmacy regarding effects of med's affecting mobility, cognition, and alternatives 21. Obtain physician order for PT if risk factors associated with mobility are present 22. Obtain physician order for OT as appropriate 23. Utilize diversional activities 24. Educate patient and patient construction representative how to maintain a safe environment during visitation times (notify nurse prior to leaving bedside) 25. Consider appropriateness of medical or non-medical anthropologist 26. Set up voiding schedule as appropriate (every 2 hours) Outcome: Progressing Note: Evaluation of progress towards goal: Pt is free from fall and injury, up independently, call light in reach and encouraging pt to call out prior to ambulation, bed and chair locked, bed rail up x2, room clear of hazards, hourly rounding provided, adequate lighting provided, non-skid footwear on prn for ambulation. Problem: Potential for Compromised Skin Integrity Goal: Skin integrity is maintained or improved Description: Patient's goal is: INTERVENTIONS 1. Perform initial skin assessment on admission and as needed 2. Turn patient every 2 hours and PRN 3. Relieve pressure to bony prominences 4. Avoid shearing 5. Keep skin clean and dry 6. Alternate a full bath with partial baths for elderly 7. Apply lotion/moisturizer on skin 8. Monitor patient's hygiene practices 9. Float heels 10. Collaborate with interdisciplinary team and initiate plans and interventions as needed Outcome: Progressing Note: Evaluation of progress towards goal: No new skin breakdown Goal: Patient's nutritional intake is adequate Description: Patient's goal is: INTERVENTIONS 1. Assess and monitor food intake and supplements, patient food preferences, nausea, vomiting, labs, oral cavity (gums, teeth, tongue, mucosa), proper denture fit, and cultural beliefs 2. Monitor for signs of hypoglycemia and hyperglycemia 3. Collaborate with interdisciplinary team and initiate plan and interventions as ordered 4. Monitor patient's weight 5. Assist patient with meals/food selection 6. Assist patient with eating 7. Allow adequate time for meals 8. Provide pleasant environment during mealtime 9. Increase social contact during mealtimes 10. Plan activities to conserve energy 11. Encourage/perform oral hygiene as appropriate 12. Encourage patient to take dietary supplement as ordered 13. Collaborate with clinical drafter seismograph 14. Include patient/ patient's construction representative in decisions related to nutrition Outcome: Progressing Note: Evaluation of progress towards goal: Pt ate 100% of meals, assessing routinely and PRN for nausea, vomiting, or constipation, providing pleasant environment for eating Problem: Urinary Incontinence Goal: Perineal skin integrity is maintained or improved Description: INTERVENTIONS 1. Assess genitourinary system, perineal skin, labs (urinalysis), and history of incontinence to include past management, aggravating, and alleviating factors 2. Keep skin clean and dry 3. Apply skin protectant 4. Develop skin care regimen 5. Provide privacy when changing patients incontinence device to maintain their dignity 6. Consider placing an indwelling catheter 7. Collaborate with interdisciplinary team and initiate plans and interventions as needed Outcome: Progressing Note: Evaluation of progress towards goal: perineum intact Problem: Optimal Supply and Comfortable Goal: Adequate feeds Description: INTERVENTIONS 1. Offer breast at least 8-12 times in first 24 hours 2. After first day, baby should feed at least 8-12 times in 24 hours. Wake baby at least every 3 hours to feed 3. Offer both breasts 4. Keep baby actively feeding at breast by using breast compressions or stimulating baby. Undress baby for feeds Outcome: Progressing Note: Evaluation of progress towards goal: Mom is feeding baby every 3 hours and PRN, baby is latching on well, offering both breast, drinking oral fluids Additional Comments: Problem: Pain Goal: Patient goal is pain score less than 4, able to rest, and participant in treatment plan as appropriate Description: INTERVENTIONS: 1. Encourage patient or legal construction representative to report early pain and ask for pain medicine when needed 2. Assess pain using appropriate pain scale and include the scale used when documenting 3. Administer analgesics based on type and severity of pain and evaluate response within appropriate time frame 4. Implement non-pharmacological measures as appropriate and evaluate response 5. Consider cultural and social influences on pain and pain management 6. Notify LIP if interventions ineffective or patient reports new pain 7. Monitor vital signs including pulse ox, end-tidal CO2 based on pain intervention 8. Reassess pain per policy 9. Teach patient or legal construction representative interventions for comforting Outcome: Progressing Note: Evaluation of progress towards goal: Patient verbalizes tolerable level of pain at this time. Pain medications will be given as needed. Additional Comments: Congratulations on your new Baby handout given with warm line contact info, office visits, and videos. Reviewed with pt. Baby News Booklet referenced with attention to chapter on . Discussed skin to skin, feed 8-12 times in 24 hrs and to wake sleeping baby for feed. Adequate feed is 10-15 minutes active sucking and swallowing, baby can nurse longer if interested. Offer both breast with each feeding. If baby is not interested in a feed in the 1st 24hrs, hand express and spoon feed to baby. Rev'd hand expression, how to know if baby is getting enough to eat. Pt verbalizes understanding and all questions answered. Pt has a pump for home. Assist with latch in cross cradle. Baby latches deeply after several attempts with some swallows. Had spit up some colostrum from previous feeding. Encouraged pt to watch latch videos. All questions answered. Flange Fit A flange fits correctly when: your nipple is centered in the tube no parts of your nipple rub against the sides little or no areola is pulled in when the pump is turned on On the other hand, a flange is not fitting properly when: you experience nipple pain during or after the pumping session you notice your nipple is becoming discolored, chapped, or otherwise injured In addition to breast and nipple pain, using the wrong sized pump flange can negatively impact the amount of milk you are able to get out of your breast. A flange that fits too tightly will cause the breast to be constricted in ways that can lead to clogged/blogged milk ducts. (When ducts are clogged, they don t release milk and new milk isn t formed as quickly.) On the other hand, a flange that fits too loosely won t provide adequate suction. This can also lead to milk being left in the breast and lower milk production in the future. Pain and infection can develop from this as well. Problem: Optimal Supply and Comfortable Goal: Adequate feeds Description: INTERVENTIONS 1. Offer breast at least 8-12 times in first 24 hours 2. After first day, baby should feed at least 8-12 times in 24 hours. Wake baby at least every 3 hours to feed 3. Offer both breasts 4. Keep baby actively feeding at breast by using breast compressions or stimulating baby. Undress baby for feeds Note: Evaluation of progress towards goal: See LC Note Additional Comments: Vaginal Delivery Note Lisa Cardenas is a at 40w4d a/w mIOL for maternal bicuspid aortic valve with aortic root dilation. Induction was done with pitocin per protocol and cervical ripening with cook balloon. Patient received an epidural and amniotomy performed. The pt progressed to complete +2 station. Due to maternal cardiovascular disease cardiology recommended assisted second stage of delivery. Kiwi vacuum was applied with minimal maternal pushing one pull was performed with a pop-off noted. The vacuum was then reapplied and with contractions and minimal maternal pushing another pull was attempted with a pop off noted when head was . Patient did a final push and delivered head over intact perineum. No nuchal cord present and reduced. Anterior and posterior shoulder were easily delivered and remainder of body followed. After 1 minute, the cord was clamped x2 and cut and infant was passed to nursing for evaluation. Pitocin was started per protocol. Cord segment was cut and cord blood obtained. Placenta was delivered with gentle traction. bleeding was stable. Fundus firm. 2nd degree laceration noted. All sponge and needle counts were correct. Anesthesia: epidural Delivery type: Vaginal, Vacuum (Extractor) Rupture of Membranes: Artificial;Intact 03/12/2024 at 9:47 AM Shoulder Dystocia: no Time of Delivery: 2103 Infant Weight: 3310g Gender: female Apgars: 8, 9 NICU attended delivery: no Placenta Delivery: spontaneous, intact Episiotomy: no Laceration: 2nd degree, repaired 3-0 vicryl Estimated Blood Loss: 200mL Dr. Margarito Dahl MD was present and participated in the delivery. Ines Wilson MD Tariff Expert Resident, PGY-3 Cosigned by Margarito Posada MD at 03/12/2024 10:18 PM EST Associated attestation - Nabila Margarito Posada MD - 03/12/2024 10:18 PM EST I was present for the entire delivery and agree with above Problem: Pain Goal: Patient goal is pain score less than 4, able to rest, and participant in treatment plan as appropriate Description: INTERVENTIONS: 1. Encourage patient or legal construction representative to report early pain and ask for pain medicine when needed 2. Assess pain using appropriate pain scale and include the scale used when documenting 3. Administer analgesics based on type and severity of pain and evaluate response within appropriate time frame 4. Implement non-pharmacological measures as appropriate and evaluate response 5. Consider cultural and social influences on pain and pain management 6. Notify LIP if interventions ineffective or patient reports new pain 7. Monitor vital signs including pulse ox, end-tidal CO2 based on pain intervention 8. Reassess pain per policy 9. Teach patient or legal construction representative interventions for comforting Outcome: Progressing Note: Evaluation of progress towards goal: Patient verbalizes tolerable level of pain at this time. Pain medications will be given as needed. Problem: Safety Goal: Patient will be injury free during hospitalization Description: INTERVENTIONS: 1. Assess patient's risk for falls and implement fall prevention plan of care per policy 2. Provide and maintain a safe environment 3. Proper use of double Identifiers 4. Medication administration using the 5 rights 5. Hand hygiene 6. Specimens are labeled at the bedside 7. Instruct patient/ patient construction representative about use of safety devices 8. Include patient/ patient construction representative in decisions related to safety Outcome: Progressing Note: Evaluation of progress towards goal: Safe environment maintained. Medications administered using 5 rights. Fall prevention plan implemented as needed. Problem: Infection Goal: Absence of infection during hospitalization Description: INTERVENTIONS 1. Assess and monitor for signs and symptoms of infection. 2. Monitor lab/diagnostic results. 3. Monitor all insertion sites i.e., indwelling lines, tubes and drains. 4. Monitor endotracheal (as able) and nasal secretions for changes in amount and color. 5. Administer medications as ordered. 6. Instruct and encourage patient and family to use good hand hygiene technique. 7. Identify and instruct patient/patient construction representative in use of appropriate isolation precautions for identified infection/symptoms. 8. Provide and discuss with patient/patient construction representative on educational MDRO sheet. 9. Encourage and monitor nutritional status daily and consult drafter seismograph if indicated. 10. Implement neutropenic guidelines as needed. Outcome: Progressing Note: Evaluation of progress towards goal: Patient is free from signs and symptoms of infection. Problem: Knowledge Deficit Goal: Patient/patient construction representative demonstrates understanding of disease process, treatment plan, medications, and discharge instructions Description: INTERVENTIONS 1. Complete learning assessment and assess knowledge base 2. Provide teaching at level of understanding 3. Provide teaching via preferred learning method(s) Outcome: Progressing Note: Evaluation of progress towards goal: Teaching provided as needed at patient's level of understanding. Problem: Discharge Planning Goal: Discharge to post-acute care, other facility, or home with appropriate resources Description: Patient's goal is: INTERVENTIONS 1. Conduct assessment to determine patient/family and health care team treatment goals, and need for post-acute services based on payer coverage, community resources, and patient preferences, and barriers to discharge 2. Coordinate with Social work, Care Navigation, and Utilization Review to arrange appropriate level of services according to patient's needs based on patient preference and payer coverage in collaboration with the physician and health care team 3. Address psychosocial, clinical, and financial barriers to discharge as identified in assessment in conjunction with the patient/family and health care team 4. Consult appropriate ancillary services (i.e.. PT/OT/ST, etc) as needed 5. Communicate with and update the patient/family, physician, and health care team regarding progress on the discharge plan 6. Identify discharge learning needs (meds, wound care, etc). 7. Arrange for needed discharge transportation as appropriate Outcome: Progressing Note: Evaluation of progress towards goal: pt discharged at a later date Problem: Low Risk Fall Score Description: Tuttle Fall Score of 0 - 24 or indicated by [facility] Assessment Goal: Patient should be free from fall Description: Interventions: 1. [place] to environment 2. Hourly rounds addressing the 4 P's (Pain, Positioning, Possessions, Potty) 3. Clear area of hazards (spills, clutter, electrical cords, unnecessary equipment) 4. Place equipment (bed & TV controls, call light, phone, urinal) within reach 5. Encourage patient to wear glasses and hearing aides as appropriate 6. Maintain bed in lowest position 7. Lock wheels on bed/wheelchair 8. Provide adequate lighting, including night light 9. Assess need for additional bedding, food/fluids, pain med's prior to sleep/routinely 10. Provide gripper slippers or personal non-skid footwear 11. Teach patient and patient construction representative to maintain environment for safety and engage in all aspects of fall prevention program Outcome: Progressing Note: Evaluation of progress towards goal: Patient understands fall prevention plan. Problem: Moderate - High Risk Fall Score Description: Tuttle Fall Score of =/> 25 or indicated by [facility] Assessment Goal: Patient should be free from fall Description: Interventions: 1. [place] to environment 2. Hourly rounds addressing the 4 P's (Pain, Positioning, Possessions, Potty) 3. Clear area of hazards (spills, clutter, electrical cords, unnecessary equipment) 4. Place equipment (bed & TV controls, call light, phone, urinal) within reach 5. Encourage patient to wear glasses and hearing aides as appropriate 6. Maintain bed in lowest position 7. Lock wheels on bed/wheelchair 8. Provide adequate lighting, including night light 9. Assess need for additional bedding, food/fluids, pain med's prior to sleep/routinely 10. Provide gripper slippers or personal non-skid footwear 11. Teach patient and patient construction representative to maintain environment for safety and engage in all aspects of fall prevention program 12. Remind patient to call for help before getting out of bed 13. Initiate bed/chair/exit alarms supportive devices as appropriate, (chair wedge, no-skid floor mat, raised edge mattress, hip protectors) 14. Locate patient bed assignment for optimal visualization 15. Evaluate and identify Safe Patient Handling Equipment needs 16. Provide supervision when out of bed or chair 17. Utilize gait belt as needed to assist with ambulation 18. Place adaptive equipment (cane, walker) within reach 19. Request patient construction representative bring adaptive equipment/mobility aids from home or obtain and provide as needed 20. Consult pharmacy regarding effects of med's affecting mobility, cognition, and alternatives 21. Obtain physician order for PT if risk factors associated with mobility are present 22. Obtain physician order for OT as appropriate 23. Utilize diversional activities 24. Educate patient and patient construction representative how to maintain a safe environment during visitation times (notify nurse prior to leaving bedside) 25. Consider appropriateness of medical or non-medical anthropologist 26. Set up voiding schedule as appropriate (every 2 hours) Outcome: Progressing Note: Evaluation of progress towards goal: Patient understands fall prevention plan. Problem: Cardiovascular - Adult Goal: Absence of cardiac dysrhythmias or at baseline Description: INTERVENTIONS: 1. Continuous cardiac monitoring, monitor vital signs, obtain 12 lead EKG as ordered 2. Monitor for therapeutic effect/ side effects and safely 3. Administer antiarrhythmic and heart rate control medications as ordered 3. Initiate emergency measures for life threatening arrhythmias 4. Monitor labs and administer replacement/adjust therapy as ordered Outcome: Progressing Note: Evaluation of progress towards goal: pt monitored per continuous telemetry Problem: Induction Goal: Patient will verbalize understanding of induction process Description: INTERVENTION 1. Educate patient about the induction process Outcome: Progressing Note: Evaluation of progress towards goal: pt verbalizes understanding of the induction process Additional Comments: Cook balloon placed without difficulty. Both balloons filled with 80mL of fluid. Patient tolerated well. Will remove at 1230 on 03/12. [place] MD Ob-Finisher Denture Resident, PGY-3 Cook balloon placed without difficulty. Both balloons filled with 80mL of fluid. Patient tolerated well. [place] MD Ob-Finisher Denture Resident, PGY-3 documented in this encounter [facility] 03-14-2024 Obstetrics Note Return for latch assist. Infant latches but continues to be sleepy at the breast. Weighed prior to discharge and weight loss 8.4%. Feeding plan initiated as weight dropping on the [place] Weight loss curve and no wet diapers today. Infant fed at the breast for 10 minutes followed by supplementation with formula via paced feeding technique. Discussed that it is common for babies to need time to learn the skill of . Encouraged to follow the feeding plan below to ensure baby is getting enough milk and stimulate/protect mother's milk supply. Written feeding plan provided. Patient verbally understands teaching. If your baby is greater than 24 hours old and is not going well: Offer the breast every 1-3 hours. If baby does not take a full feed at breast, move to step 2. Supplement baby with pumped milk or formula using paced bottle feeding (see below for supplement amount) Pump for 15-20 minutes with double electric breast pump Baby's Age (Hours) Average Intake (Per Feed) <24 2-10 mls 24-48 5-15 mls 48-72 15-30 mls 72-96 30-60 mls Patient educated that this feeding plan is meant to be short term: it is a bridge to protect milk supply and feed the baby while they get bigger, stronger, and more effective at . Encouraged to make an outpatient appointment after discharge with by calling [phone]. Encouraged patient to practice paced bottle feeding to help the manage the flow of milk from the bottle nipple and provide developmental support to to facilitate safe and effective feeding. Patient provided information below: -Swaddle infant with hands up near face, legs in flexion -Hold infant close to your body, side-lying, making sure to support infant's back and neck -Hold bottle/nipple parallel to the floor -Give a few sucks on the bottle (3-4) then tilt the bottle back to give a break , then tilt bottle slightly forward to allow to suckle at bottle and get milk. This mimics the flow of the breast. Do not remove bottle nipple from infant's mouth while pacing. -May need to burp more frequently, as they will take in more air. [facility] 03-14-2024 Hospital Discharge instructions Fanta Dorman RN - 03/14/2024 10:54 AM EST Discharge Instructions Vaginal Bleeding Vaginal drainage, lochia , will last 2-3 weeks after your baby was born Use the shawnee bottle filled with warm water each time you use the bathroom, pat dry. Continue this until your drainage stops. Always wipe from front to back after you urinate or have a bowel movement Change your sanitary pad every 2-4 hours Notify your doctor/CNM if you experience any of the following: Clots larger than a plum If you are saturating a shawnee pad greater than one pad an hour Any foul smelling vaginal drainage Abdominal Cramping Cramping gets stronger with each baby. You may try a heating pad Bathing/Showering Take a shower each day unless you were told not to To help with episiotomy discomfort you may sit in a clean tub of warm water Stitches in your perineum will dissolve over 6 weeks, for comfort you may: Use a sitz bath Shawnee bottle Dermoplast (use each time after shawnee care) Tucks (use each time after shawnee care) Tucks and Dermoplast spray may also help with hemorrhoid discomfort (use each time after shawnee care) Sexual Anza No tampons, douching, or sexual intercourse until after you see your doctor You may need to use a water-soluble lubricant such as [place] Jelly for dryness Talk to your doctor/CNM regarding control and which method would be best for you Talk to your doctor/CNM regarding the use of a long acting, but reversible, control method It is recommended to space pregnancies apart by at least 18 months, this is for the safety of future outcomes Notify your doctor if you have: Any vaginal burning or itching Any burning or pain when urinating, or inability to urinate A temperature greater than 100.4 degrees Fahrenheit or severe chills Pain in calf or leg Nausea or vomiting, dizziness or fainting If you have not had a bowel movement in 5 days Diet: Drink 8-12 glasses of water each day Make sure you eat a balanced diet, especially high in fiber (whole grains, raw vegetables, etc.) If drink 8 oz. of liquid every time you nurse your baby Continue to take your vitamins as prescribed by your doctor Abdominal Incision / Tubal Ligation Care: Wash your incision with soap and water and be sure to rinse and dry well If you had lavern they will be removed by your doctor/CNM If you had sutures they will dissolve on their own For ease of movement hold a pillow against the incision: When you get up from a lying or sitting position When you laugh or cough Notify your doctor/CNM for any of the following: Redness Drainage Open areas around your incision Breast Care: To help with discomfort: Feed your baby frequently to avoid engorgement Apply warm compresses to breast before feeding Apply cold compresses to breast after feeding Wear a supportive nursing bra 24 hours a day Do not put soap on your nipples Allow nipples to air dry after feeding Bottle feeding: To help with discomfort: Use cold compresses Wear a tight fitting bra 24 hours a day Notify your doctor/CNM: For swelling, redness, or tenderness in one area of your breast Blues / Depression: Blues : Usually occurs within 3-5 days after delivery Normally goes away on its own Depression: Can also occur within days of delivery, or within a year Warning Signs: Increased crying for no obvious reason Lack of patience Being irritable Being restless Not being able to sleep Not wanting to eat Anxiety Notify your doctor/CNM: If you experience any of the warning signs If you are having any violent thoughts If you are having thoughts of harming yourself or your baby Sibling / Family Adjustment: Each family member will take different amounts of time to adjust to the new baby Be patient and offer lots of love and comfort Offer some individual attention to other children Exercise / Activity: Get plenty of rest Take catnaps while baby is sleeping during the day No heavy cleaning or other housework for the first couple of weeks Lift nothing heavier than your baby for 2 weeks No driving for one week Do not drive while taking narcotics You may start walking and stretching in 2 weeks No strenuous exercises like jogging, aerobics, etc. until after you have seen your doctor/CNM You may start Kegel exercises now The following attachments cannot be sent through Care Everywhere.Vaginal Delivery Discharge Instructions (M[place]ese) (Marshallese) Depression Discharge Instructions (Marshallese)documented in this encounter [facility] 03-14-2024 Plan of care note Problem: Pain Goal: Patient goal is pain score less than 4, able to rest, and participant in treatment plan as appropriate Description: INTERVENTIONS: 1. Encourage patient or legal construction representative to report early pain and ask for pain medicine when needed 2. Assess pain using appropriate pain scale and include the scale used when documenting 3. Administer analgesics based on type and severity of pain and evaluate response within appropriate time frame 4. Implement non-pharmacological measures as appropriate and evaluate response 5. Consider cultural and social influences on pain and pain management 6. Notify LIP if interventions ineffective or patient reports new pain 7. Monitor vital signs including pulse ox, end-tidal CO2 based on pain intervention 8. Reassess pain per policy 9. Teach patient or legal construction representative interventions for comforting Outcome: Progressing Note: Evaluation of progress towards goal: Encouraging pt to report pain and ask for pain medication prn, pt rate pain at_2_on scale of 0-10,goal is less than 4 at the end of shift, pt pain improving,encourging non-pharmacutical pain relief, re-evaluating Q4 hours and per unit policy Problem: Safety Goal: Patient will be injury free during hospitalization Description: INTERVENTIONS: 1. Assess patient's risk for falls and implement fall prevention plan of care per policy 2. Provide and maintain a safe environment 3. Proper use of double Identifiers 4. Medication administration using the 5 rights 5. Hand hygiene 6. Specimens are labeled at the bedside 7. Instruct patient/ patient construction representative about use of safety devices 8. Include patient/ patient construction representative in decisions related to safety Outcome: Progressing Note: Evaluation of progress towards goal: Pt is free from falls and injury, call light in reach, side rales up x2, double identifiers when passing meds or collecting labs Problem: Infection Goal: Absence of infection during hospitalization Description: INTERVENTIONS 1. Assess and monitor for signs and symptoms of infection. 2. Monitor lab/diagnostic results. 3. Monitor all insertion sites i.e., indwelling lines, tubes and drains. 4. Monitor endotracheal (as able) and nasal secretions for changes in amount and color. 5. Administer medications as ordered. 6. Instruct and encourage patient and family to use good hand hygiene technique. 7. Identify and instruct patient/patient construction representative in use of appropriate isolation precautions for identified infection/symptoms. 8. Provide and discuss with patient/patient construction representative on educational MDRO sheet. 9. Encourage and monitor nutritional status daily and consult drafter seismograph if indicated. 10. Implement neutropenic guidelines as needed. Outcome: Progressing Note: Evaluation of progress towards goal: Pt is afebrile, no s/s of infections all vitals and lab values Q6 hours and PRN, administering medications as ordered, encouraging family to use hand hygiene Problem: Knowledge Deficit Goal: Patient/patient construction representative demonstrates understanding of disease process, treatment plan, medications, and discharge instructions Description: INTERVENTIONS 1. Complete learning assessment and assess knowledge base 2. Provide teaching at level of understanding 3. Provide teaching via preferred learning method(s) Outcome: Progressing Note: Evaluation of progress towards goal: Parent verbalized understanding of POC, encourage questions Problem: Discharge Planning Goal: Discharge to post-acute care, other facility, or home with appropriate resources Description: Patient's goal is: INTERVENTIONS 1. Conduct assessment to determine patient/family and health care team treatment goals, and need for post-acute services based on payer coverage, community resources, and patient preferences, and barriers to discharge 2. Coordinate with Social work, Care Navigation, and Utilization Review to arrange appropriate level of services according to patient's needs based on patient preference and payer coverage in collaboration with the physician and health care team 3. Address psychosocial, clinical, and financial barriers to discharge as identified in assessment in conjunction with the patient/family and health care team 4. Consult appropriate ancillary services (i.e.. PT/OT/ST, etc) as needed 5. Communicate with and update the patient/family, physician, and health care team regarding progress on the discharge plan 6. Identify discharge learning needs (meds, wound care, etc). 7. Arrange for needed discharge transportation as appropriate Outcome: Progressing Note: Evaluation of progress towards goal: Discharge in 1-2 days Problem: Low Risk Fall Score Description: Tuttle Fall Score of 0 - 24 or indicated by [facility] Assessment Goal: Patient should be free from fall Description: Interventions: 1. [place] to environment 2. Hourly rounds addressing the 4 P's (Pain, Positioning, Possessions, Potty) 3. Clear area of hazards (spills, clutter, electrical cords, unnecessary equipment) 4. Place equipment (bed & TV controls, call light, phone, urinal) within reach 5. Encourage patient to wear glasses and hearing aides as appropriate 6. Maintain bed in lowest position 7. Lock wheels on bed/wheelchair 8. Provide adequate lighting, including night light 9. Assess need for additional bedding, food/fluids, pain med's prior to sleep/routinely 10. Provide gripper slippers or personal non-skid footwear 11. Teach patient and patient construction representative to maintain environment for safety and engage in all aspects of fall prevention program Outcome: Progressing Note: Evaluation of progress towards goal: Pt is free from fall and injury, up independently, call light in reach and encouraging pt to call out prior to ambulation, bed and chair locked, bed rail up x2, room clear of hazards, hourly rounding provided, adequate lighting provided, non-skid footwear on prn for ambulation. Problem: Moderate - High Risk Fall Score Description: Tuttle Fall Score of =/> 25 or indicated by [facility] Assessment Goal: Patient should be free from fall Description: Interventions: 1. [place] to environment 2. Hourly rounds addressing the 4 P's (Pain, Positioning, Possessions, Potty) 3. Clear area of hazards (spills, clutter, electrical cords, unnecessary equipment) 4. Place equipment (bed & TV controls, call light, phone, urinal) within reach 5. Encourage patient to wear glasses and hearing aides as appropriate 6. Maintain bed in lowest position 7. Lock wheels on bed/wheelchair 8. Provide adequate lighting, including night light 9. Assess need for additional bedding, food/fluids, pain med's prior to sleep/routinely 10. Provide gripper slippers or personal non-skid footwear 11. Teach patient and patient construction representative to maintain environment for safety and engage in all aspects of fall prevention program 12. Remind patient to call for help before getting out of bed 13. Initiate bed/chair/exit alarms supportive devices as appropriate, (chair wedge, no-skid floor mat, raised edge mattress, hip protectors) 14. Locate patient bed assignment for optimal visualization 15. Evaluate and identify Safe Patient Handling Equipment needs 16. Provide supervision when out of bed or chair 17. Utilize gait belt as needed to assist with ambulation 18. Place adaptive equipment (cane, walker) within reach 19. Request patient construction representative bring adaptive equipment/mobility aids from home or obtain and provide as needed 20. Consult pharmacy regarding effects of med's affecting mobility, cognition, and alternatives 21. Obtain physician order for PT if risk factors associated with mobility are present 22. Obtain physician order for OT as appropriate 23. Utilize diversional activities 24. Educate patient and patient construction representative how to maintain a safe environment during visitation times (notify nurse prior to leaving bedside) 25. Consider appropriateness of medical or non-medical anthropologist 26. Set up voiding schedule as appropriate (every 2 hours) Outcome: Progressing Note: Evaluation of progress towards goal: Pt is free from fall and injury, up independently, call light in reach and encouraging pt to call out prior to ambulation, bed and chair locked, bed rail up x2, room clear of hazards, hourly rounding provided, adequate lighting provided, non-skid footwear on prn for ambulation. Problem: Potential for Compromised Skin Integrity Goal: Skin integrity is maintained or improved Description: Patient's goal is: INTERVENTIONS 1. Perform initial skin assessment on admission and as needed 2. Turn patient every 2 hours and PRN 3. Relieve pressure to bony prominences 4. Avoid shearing 5. Keep skin clean and dry 6. Alternate a full bath with partial baths for elderly 7. Apply lotion/moisturizer on skin 8. Monitor patient's hygiene practices 9. Float heels 10. Collaborate with interdisciplinary team and initiate plans and interventions as needed Outcome: Progressing Note: Evaluation of progress towards goal: No new skin breakdown Goal: Patient's nutritional intake is adequate Description: Patient's goal is: INTERVENTIONS 1. Assess and monitor food intake and supplements, patient food preferences, nausea, vomiting, labs, oral cavity (gums, teeth, tongue, mucosa), proper denture fit, and cultural beliefs 2. Monitor for signs of hypoglycemia and hyperglycemia 3. Collaborate with interdisciplinary team and initiate plan and interventions as ordered 4. Monitor patient's weight 5. Assist patient with meals/food selection 6. Assist patient with eating 7. Allow adequate time for meals 8. Provide pleasant environment during mealtime 9. Increase social contact during mealtimes 10. Plan activities to conserve energy 11. Encourage/perform oral hygiene as appropriate 12. Encourage patient to take dietary supplement as ordered 13. Collaborate with clinical drafter seismograph 14. Include patient/ patient's construction representative in decisions related to nutrition Outcome: Progressing Note: Evaluation of progress towards goal: Pt ate 100% of meals, assessing routinely and PRN for nausea, vomiting, or constipation, providing pleasant environment for eating Problem: Urinary Incontinence Goal: Perineal skin integrity is maintained or improved Description: INTERVENTIONS 1. Assess genitourinary system, perineal skin, labs (urinalysis), and history of incontinence to include past management, aggravating, and alleviating factors 2. Keep skin clean and dry 3. Apply skin protectant 4. Develop skin care regimen 5. Provide privacy when changing patients incontinence device to maintain their dignity 6. Consider placing an indwelling catheter 7. Collaborate with interdisciplinary team and initiate plans and interventions as needed Outcome: Progressing Note: Evaluation of progress towards goal: perineum intact Problem: Optimal Supply and Comfortable Goal: Adequate feeds Description: INTERVENTIONS 1. Offer breast at least 8-12 times in first 24 hours 2. After first day, baby should feed at least 8-12 times in 24 hours. Wake baby at least every 3 hours to feed 3. Offer both breasts 4. Keep baby actively feeding at breast by using breast compressions or stimulating baby. Undress baby for feeds Outcome: Progressing Note: Evaluation of progress towards goal: Mom is feeding baby every 3 hours and PRN, baby is latching on well, offering both breast, drinking oral fluids Additional Comments: . [facility] Narrative Discharge Summary Reason for admission: Medical Induction indications maternal cardiac disease Principal diagnosis: Intrauterine at 40w4d Secondary diagnosis: 1. Bicuspid aortic valve with mild post dilated valvular aortic dilation in ascending aorta 2. Echogenic cardiac focus and choroid plexus cyst 3. Maternal gestational hypothyroidism Procedures: VAVD Hospital course: Lisa Cardenas is a 29 y.o. who presented at 40w4d for mIOL for maternal bicuspid aortic valve with aortic root dilation. Induction was done with pitocin per protocol and cervical ripening with cook balloon. Patient received an epidural and amniotomy performed. She progressed to complete. Due to maternal cardiovascular disease cardiology recommended assisted second stage of delivery. She delivered a viable female fetus weighing 3310 grams with apgars of 8 and 9 at one and five minutes respectively via VAVD with 2nd degree perineal laceration repaired in usual fashion. She underwent an uncomplicated course and remained on telemetry for 24h without events. She was discharged home on day number 2 when she was tolerating a regular diet, ambulating without difficulty, passing flatus, urinating without difficulty, and pain was controlled using oral pain medications. I reviewed signs and symptoms of post depression with the patient, she currently Denies any of these symptoms. Laboratory Results: Lab Results Component Value Date WBC 14.8 (H) 03/13/2024 HGB 10.3 (L) 03/13/2024 HCT 29.8 (L) 03/13/2024 MCV 87 03/13/2024 PLT 145 (L) 03/13/2024 Lab Results Component Value Date GLU 103 (H) 03/13/2024 CALCIUM 8.8 03/13/2024 K 3.7 03/13/2024 CO2 23 03/13/2024 BUN 16 03/13/2024 CREATININE 0.68 03/13/2024 Prescriptions given at discharge: Motrin 800mg PO Q8H prn pain Tylenol 1000mg Q8H prn pain Colace 100mg daily prn constipation Condition of patient at discharge: Stable, good. Special instructions to the patient family: 1. Pelvic rest for 6 weeks, nothing in the vagina no tampons, douches, or intercourse. 2. Please call if fever greater than 100.3, chills, malodorous vaginal discharge, or other signs of infection. 3. Please call if chest pain, shortness of breath, asymmetrical leg swelling or calf tenderness develops. 4. Please call if bleeding through more than 1 pad per hour. Recommendations for follow-up care: 1. Please follow up with your PAPER STACKER in 6 weeks for routine visit. Disposition: home Lois Conner DO Tariff Expert Resident PGY-4 03/14/24 7:16 AM Cosigned by Kortney Sparrow DO at 03/14/2024 7:19 AM EST Associated attestation - Kortney Sparrow DO - 03/14/2024 7:19 AM EST Agree with discharge summary documented in this encounter [facility] 03-14-2024 History of Present illness Narrative OBGYN Daily Progress Note Subjective Lisa Cardenas is a 29 y.o. PPD#2 VAVD 40w4d. Patient reports doing well. Pain is controlled with oral medications. Lochia minimal. She is voiding without difficulty. Has had flatus, no BM. She is ambulating without difficulty. She is . Undecided for post control. Baby doing well. Denies fever, chills, nausea, vomiting, chest pain, shortness of breath, headache, changes in vision, or RUQ pain. Objective: Temp: [36.7 C (98.1 F)-36.9 C (98.4 F)] 36.9 C (98.4 F) Pulse: [73-95] 73 Resp: [16-23] 16 Blood Pressure : (90-117)/(59-75) 101/59 GENERAL APPEARANCE: alert, well appearing, in no apparent distress ABDOMEN : soft, appropriately tender, and uterus firm below umbilicus EXTREMITIES no redness or tenderness in the calves or thighs, no edema Assessment/Plan: Lisa Cardenas is a 29 y.o. s/p VAVD 40w4d, PPD#2. complicated by maternal cardiac disease. Maternal cardiac disease Bicuspid aortic valve with mild post dilated valvular aortic dilation in ascending aorta S/p telemetry for 24h - no events S/p cardiology evaluation Routine PP care. A + Encourage ambulation. undecided for PP contraception. Anticipate discharge home today. Lois Conner DO [employer]iff Expert Resident PGY-4 Cosigned by Kortney Sparrow DO at 03/14/2024 7:19 AM EST Associated attestation - Kortney Sparrow DO - 03/14/2024 7:19 AM EST Attending Attestation: I saw the patient. I participated and was physically present during the critical/bai portions of the service. I was directly involved in the management and treatment plan of the patient. I reviewed the resident's note. Additional Notes/Findings: 29 y.o. PPD#2 VAVD 40w4d. Cardiology saw her yesterday and had no concerns for discharge. Her telemetry was uneventful yesterday and during labor. She will follow up with Cardiology as scheduled. She is doing well from a standpoint. Discharge home today. Temp: [36.7 C (98.1 F)-36.9 C (98.4 F)] 36.9 C (98.4 F) Pulse: [73-95] 73 Resp: [16-23] 16 Blood Pressure : (90-117)/(59-75) 101/59 Kortney Sparrow DO OBGYN Daily Progress Note SUBJECTIVE Lisa Cardenas is a 29 y.o. PPD#1 VAVD at 40w4d. Patient reports doing well. Pain is controlled with oral medications. Lochia minimal. She is voiding without difficulty. She has had flatus, and has not had a BM. She is ambulating without difficulty. She is . Baby doing well. Denies fever, chills, nausea, vomiting, chest pain, shortness of breath, headache, changes in vision, or RUQ pain. OBJECTIVE Vitals Vitals: 03/13/24 0200 BP: 105/71 Pulse: 102 Resp: 20 Temp: 37.1 C (98.8 F) SpO2: I/O's Intake/Output Summary (Last 24 hours) at 03/13/2024 0636 Last data filed at 03/13/2024 0337 Gross per 24 hour Intake 1185.72 ml Output 2600 ml Net -1414.28 ml Exam GENERAL APPEARANCE: alert, well appearing, in no apparent distress ABDOMEN : soft, nontender, nondistended, and uterus firm below umbilicus EXTREMITIES no redness or tenderness in the calves or thighs, no edema Labs Results from last 7 days Lab Units 03/12/24 0306 WBC X10E9/L 9.9 HEMOGLOBIN g/dL 12.6 HEMATOCRIT % 36.9 PLATELETS X10E9/L 167 ASSESSMENT & PLAN Lisa Cardenas is a 29 y.o. PPD#1 VAVD at 40w4d. c/b maternal cardiovascular disease Maternal cardiovascular disease Continue telemetry for 24hr Cardiology consulted, appreciate recommendations Apositive,received Tdap Encourage ambulation Continue routine post care Anticipate home tomorrow Ines Wilson MD Tariff Expert Resident, PGY-3 Cosigned by Kortney Sparrow DO at 03/13/2024 9:00 AM EST Associated attestation - Kortney Sparrow DO - 03/13/2024 9:00 AM EST Attending Attestation: I saw the patient. I participated and was physically present during the critical/bai portions of the service. I was directly involved in the management and treatment plan of the patient. I reviewed the resident's note. Additional Notes/Findings: 29 y.o. PPD#1 VAVD at 40w4d Maternal cardiovascular disease- cardiology consulted, continue telemetry for 24 hours . This has been unremarkable thus far. Discharge home tomorrow if everything continues to be stable. Temp: [36.7 C (98.1 F)-37.8 C (100 F)] 36.9 C (98.4 F) Pulse: [61-102] 80 Resp: [10-29] 19 Blood Pressure : (90-125)/(64-89) 90/64 SpO2: [93 %-100 %] 98 % O2 Device: None (Room air) Kortney Sparrow DO Labor Progress Note SUBJECTIVE The patient reports no complaints. OBJECTIVE Vitals Vitals: 03/12/24 1615 03/12/24 1630 03/12/24 1800 03/12/24 1815 BP: 122/88 117/87 125/89 116/84 Pulse: 77 71 85 86 Resp: 16 14 16 14 Temp: TempSrc: SpO2: 98% 98% 97% 99% Exam FHR: Baseline Rate A: 115 bpm, moderate variability, accelerations: present, decelerations: absent [place]: q1-3min SVE: Dilation: 6 Effacement (%): 90 Station: -1 Presentation: Vertex Method: Manual OB Examiner: Dr Esteban ASSESSMENT & PLAN Pt is a 29 y.o. at 40w4d who was admitted for mIOL d/t maternal cardiac disease Maternal cardiovascular disease Tele Cardiology is consulted Pain control: epidural FHR Tracing: Category 1 Continue routine labor care with expectant management - Pitocin running, currently at 2 mL/hr Jovanna Esteban MD 03/12/24 Tariff Expert Resident, PGY-2 Cosigned by Margarito Posada MD at 03/12/2024 7:35 PM EST Associated attestation - Margarito Cabrera MD - 03/12/2024 7:35 PM EST I reviewed the resident's note and discussed the case with the resident. This specific service will not be billed. Pediatric-Adult Congenital Supervisor [employer] Cardiology attending: Chepe Peraza MD My patient has made me aware that she is in active labor and is being induced for delivery of her current fetus. Please take note of my recommendations from my last consultation letter that is in Access Everywhere. Please have me consulted after delivery and I should be consulted to evaluate the fetus . I am available by phone at [phone]. Chepe Peraza MD, [facility] Academic Chief of Pediatric Cardiology Professor of Pediatrics [facility] Labor Progress Note SUBJECTIVE The patient reports vaginal pressure. OBJECTIVE Vitals Vitals: 03/12/24 1145 03/12/24 1200 03/12/24 1215 03/12/24 1230 BP: 116/81 108/77 114/85 105/73 Pulse: 71 73 75 70 Resp: 12 18 (!) 29 13 Temp: TempSrc: SpO2: 97% 97% 96% 97% Exam FHR: Baseline Rate A: 120 bpm, moderate variability, accelerations: present, decelerations: present (earlies) Frankford: q1-3min SVE: Dilation: 5 Effacement (%): 80 Station: -2 Presentation: Vertex Method: Manual OB Examiner: Dr Esteban ASSESSMENT & PLAN Pt is a 29 y.o. at 40w4d who was admitted for mIOL d/t maternal cardiac disease Pain control: epidural Maternal cardiovascular disease Tele Cardiology is consulted FHR Tracing: Category 1 Continue routine labor care with expectant management - Pitocin running, currently at 1.5 mL/hr, continue to increase per protocol - s/p AROM Jovanna Esteban MD 03/12/24 Tariff Expert Resident, PGY-2 Cosigned by Katerina Pool MD at 03/12/2024 2:35 PM EST Associated attestation - Katerina Pool MD - 03/12/2024 2:35 PM EST I reviewed the resident's note and discussed the case with the resident. This specific service will not be billed. Additional findings/notes: Katerina Pool MD [facility] 03/12/2024 2:35 PM Labor Progress Note SUBJECTIVE The patient reports no complaints. OBJECTIVE Vitals Vitals: 03/12/24 0915 03/12/24 0930 03/12/24 0936 03/12/24 0945 BP: 98/72 113/72 113/72 115/85 Pulse: 81 67 66 87 Resp: 11 13 14 20 Temp: TempSrc: SpO2: 93% 95% 95% 97% Exam FHR: Baseline Rate A: 125 bpm, moderate variability, accelerations present, intermittent late decelerations noted Frankford: q2-4mins SVE: Dilation: 5 Effacement (%): 80 Station: -2 Presentation: Vertex Method: Manual OB Examiner: Dr Wilson ASSESSMENT & PLAN Pt is a 29 y.o. at 40w4d who a/w mIOL d/t maternal cardiovascular disease Maternal cardiovascular disease Cardiology consulted Continue tele Pain control: epidural FHR Tracing: Category II (resolved) now category I AROM performed, clear fluid noted Fluid increased to 125ml/hr FHT improved Maternal hypotension was also noted that improved with fluid resuscitation Labor management Pitocin 1.5mL/hr. Continue pitocin per protocol Ines Wilson MD 03/12/24 Tariff Expert Resident, PGY-3 Cosigned by Katerina Pool MD at 03/12/2024 11:18 AM EST Associated attestation - Katerina Pool MD - 03/12/2024 11:18 AM EST Attending Attestation: I saw the patient. I participated and was physically present during the critical/bai portions of the service. I was directly involved in the management and treatment plan of the patient. I reviewed the resident's note. Additional Notes/Findings: 29 y.o. at 40w4d here for MIOL for maternal cardiovascular disease, bicuspid aortic valve. She has been cleared for vaginal delivery by cardiology, Dr. Peraza. He has been notified of her admission. He recommends assisted second stage. Continuous telemetry during labor and 24hrs . Now s/p AROM. FHT: mod jose + accels and variable decels have resolved since AROM TOCO: regular ctx q 2-4 minutes Katerina Pool MD [facility] 03/12/2024 11:18 AM Labor Progress Note SUBJECTIVE The patient reports relief of contraction pain with epidural. Cook balloon removed with gentle traction. BSUS confirms cephalic presentation. SVE 4/60/-2. OBJECTIVE Vitals Vitals: 03/12/24 0430 03/12/24 0435 03/12/24 0440 03/12/24 0515 BP: (!) 124/93 120/83 121/84 115/81 Pulse: 76 72 73 78 Resp: 18 14 13 14 Temp: TempSrc: SpO2: 97% 97% 98% 95% Exam FHR: Baseline Rate A: 115 bpm, moderate variability, accelerations present, decelerations absent Frankford: q2-3 minutes SVE: Dilation: 4 Effacement (%): 60 Station: -2 Presentation: Vertex Method: Ultrasound OB Examiner: Dr. Head ASSESSMENT & PLAN Pt is a 29 y.o. at 40w4d who is admitted for mIOL d/t maternal cardiac disease. Pain control: epidural FHR Tracing: Category I mIOL S/p cook On pitocin - titrate per protocol AROM when head well engaged Continue routine labor care with expectant management [place] MD 03/12/24 Tariff Expert Resident, PGY-3 Cosigned by Norma Kincaid MD at 03/12/2024 7:50 AM EST Associated attestation - Chanda, Norma Bal MD - 03/12/2024 7:50 AM EST Above reviewed. NORMA KINCAID MD [facility] Plan of care note Problem: Pain Goal: Patient goal is pain score less than 4, able to rest, and participant in treatment plan as appropriate Description: INTERVENTIONS: 1. Encourage patient or legal construction representative to report early pain and ask for pain medicine when needed 2. Assess pain using appropriate pain scale and include the scale used when documenting 3. Administer analgesics based on type and severity of pain and evaluate response within appropriate time frame 4. Implement non-pharmacological measures as appropriate and evaluate response 5. Consider cultural and social influences on pain and pain management 6. Notify LIP if interventions ineffective or patient reports new pain 7. Monitor vital signs including pulse ox, end-tidal CO2 based on pain intervention 8. Reassess pain per policy 9. Teach patient or legal construction representative interventions for comforting Outcome: Progressing Note: Evaluation of progress towards goal: Patient verbalizes tolerable level of pain at this time. Pain medications will be given as needed. Additional [facility] Nurse Note Patient admitted to PP unit. Upon assessment, patient appears to be jaundiced. Notified Dr. Conner. Dr. Conner ordered STAT CMP, and CBC. [facility] Obstetrics Note Congratulations on your new Baby handout given with warm line contact info, office visits, and videos. Reviewed with pt. Baby News Booklet referenced with attention to chapter on . Discussed skin to skin, feed 8-12 times in 24 hrs and to wake sleeping baby for feed. Adequate feed is 10-15 minutes active sucking and swallowing, baby can nurse longer if interested. Offer both breast with each feeding. If baby is not interested in a feed in the 1st 24hrs, hand express and spoon feed to baby. Rev'd hand expression, how to know if baby is getting enough to eat. Pt verbalizes understanding and all questions answered. Pt has a pump for home. Assist with latch in cross cradle. Baby latches deeply after several attempts with some swallows. Had spit up some colostrum from previous feeding. Encouraged pt to watch latch videos. All questions answered. Flange Fit A flange fits correctly when: your nipple is centered in the tube no parts of your nipple rub against the sides little or no areola is pulled in when the pump is turned on On the other hand, a flange is not fitting properly when: you experience nipple pain during or after the pumping session you notice your nipple is becoming discolored, chapped, or otherwise injured In addition to breast and nipple pain, using the wrong sized pump flange can negatively impact the amount of milk you are able to get out of your breast. A flange that fits too tightly will cause the breast to be constricted in ways that can lead to clogged/blogged milk ducts. (When ducts are clogged, they don t release milk and new milk isn t formed as quickly.) On the other hand, a flange that fits too loosely won t provide adequate suction. This can also lead to milk being left in the breast and lower milk production in the future. Pain and infection can develop from this as well. [facility] 03-13-2024 Plan of care note Problem: Optimal Supply and Comfortable Goal: Adequate feeds Description: INTERVENTIONS 1. Offer breast at least 8-12 times in first 24 hours 2. After first day, baby should feed at least 8-12 times in 24 hours. Wake baby at least every 3 hours to feed 3. Offer both breasts 4. Keep baby actively feeding at breast by using breast compressions or stimulating baby. Undress baby for feeds Note: Evaluation of progress towards goal: See LC Note Additional Comments: [facility] 03-13-2024 Consult note Associated Order (s): IP CONSULT TO CARDIOLOGY Adult-congenital Cardiology Consultation Cardiology attending: Chepe Peraza MD Reason for Consultation: Congenital aortic bicuspid aortic valve and aortic dilation s/p Date of Consultation: March 13, 2024 Patient: Lisa Cardenas Date of : 1995 Date of Visit: 03/13/2024 HPI: Lisa is a 29-year-old female woman now > 12 hours post- who has been followed by me with a bicuspid aortic valve with minimal aortic stenosis and trivial regurgitation at 40.5 weeks. There is associated ascending aortic dilation with preserved heart function. She did not have any cardiac related issues and did well with pitocin-augmented delivery with passive second stage and use of epidural anesthesia. Previous ultrasound had demonstrated bilateral choroid plexus cysts which have since resolved and there is an echogenic structure in the left ventricle which is commonly seen but no other congenital cardiac abnormality was seen in the fetus. Delivered last pm. Patient currently asymptomatic except for minimal chest tightness which has since resolved. She had rare palpitations with no documented dysrhythmia on telemetry. Non-cardiac ROS is unremarkable. Delivery was vacuum-assisted vaginal and uncomplicated except for second-degree lac. : 8,9. No distress. Current Facility-Administered Medications Medication Dose Route Frequency Provider Last Rate Last Admin acetaminophen (TYLENOL EXTRA STRENGTH) tablet 1,000 mg 1,000 mg oral Q8H PRN Jovanna Esteban MD 1,000 mg at 03/13/24 0454 acetaminophen (TYLENOL) tablet 650 mg 650 mg oral Q4H PRN Jovanna Esteban MD benzocaine-menthoL (DERMOPLAST) topical spray 1 Application 1 Application topical PRN Jovanna Esteban MD bisacodyL (DULCOLAX) suppository 10 mg 10 mg rectal Once PRN Jovanna Esteban MD carboprost (HEMABATE) injection 250 mcg 250 mcg intramuscular Once PRN Jovanna Esteban MD docusate sodium (COLACE) capsule 100 mg 100 mg oral BID Jovanna Esteban MD 100 mg at 03/13/24 0932 hydrocortisone (ANUSOL-HC) 2.5 % rectal cream 1 Application 1 Application rectal PRN Jovanna Esteban MD ibuprofen (MOTRIN) tablet 800 mg 800 mg oral Q8H PRN Jovanna Esteban MD 800 mg at 03/13/24 0932 lactated ringers infusion 999 mL/hr intravenous Continuous PRN Jovanna Esteban MD methylergonovine (METHERGINE) injection 200 mcg 200 mcg intramuscular Once PRN Jovanna Esteban MD miSOPROStoL (CYTOTEC) tablet 800 mcg 800 mcg sublingual Once PRN Jovanna Esteban MD modified lanolin (LANSINOH) 100 % cream cream 1 Application 1 Application topical PRN Jovanna Esteban MD oxytocin (PITOCIN) infusion 30 units/500 mL in lactated ringers (0.06 units/mL premix) 42 mariela-units/min intravenous Continuous PRN [place] MD Stopped at 03/13/24 0132 oxytocin (PITOCIN) injection 10 Units 10 Units intramuscular Once PRN Jovanna Esteban MD polyethylene glycol (GLYCOLAX) packet 17 g 17 g oral Daily Jovanna Esteban MD sodium chloride 0.9 % flush 3 mL 3 mL intravenous Q8H Jovanna Esteban MD 3 mL at 03/13/24 0830 sodium chloride 0.9 % flush 3 mL 3 mL intravenous PRN Jovanna Esteban MD tranexamic acid (CYKLOKAPRON) injection 1,000 mg 1,000 mg intravenous PRN MD rod Hardin (PREPARATION H TOTABLE) pad 1 Application 1 Application topical PRN Jovanna Esteban MD Allergies Allergen Reactions Doxycycline ulercative esophagus Clindamycin ulcerated esophagus Clindamycin Erythromycin Amoxicillin Rash Amoxicillin Rash Biaxin [Clarithromycin] Rash Clarithromycin Rash Past Medical History: Diagnosis Date Bicuspid aortic valve Past Surgical History: Procedure Laterality Date ANGIOGRAM [...] Cholesterol Neg Hx Thyroid Issues Neg Hx Review of Systems - Respiratory ROS, Gastrointestinal ROS, Genitourinary ROS, Hematologic, Endocrinologic ROS, Musculoskeletal, Immunologic, Infectious ROS, Neurologic ROS are unremarkable. On physical exam the patient was alert, cooperative and in NAD. Vitals: 03/12/24 2330 03/13/24 0200 03/13/24 0700 03/13/24 0800 BP: 121/76 105/71 90/64 Pulse: 89 102 75 80 Resp: 15 20 12 19 Temp: 37.1 C (98.8 F) 36.9 C (98.4 F) TempSrc: Oral Oral SpO2: 98% HEENT was normal. Lungs were clear to auscultation. Neck exam demonstrated no JVD or AI. Chest was normal active without thrill. There was a regular rate and rhythm with a normal S1, very easily audible aortic ejection click, and prominent S2 with physiologic splitting of the S2. No murmurs were heard in systole or diastole. Abdominal exam was remarkable for post- abdomen. No hepatosplenomegaly. Peripheral extremities demonstrated symmetrical pulses and pulse pressure without BF delay. No clubbing, cyanosis, or edema was seen with normal capillary refill. Skin & joint exam was normal. 30 week Echocardiogram demonstrated: Bicuspid aortic valve with trivial to mild aortic stenosis, peak instantaneous systolic pressure gradient of 16 mm Hg. There is moderate to severely dilated ascending aorta (unchanged) at 39 mm with mildly dilated aortic root. Trivial aortic and mitral valve insufficiency. Normal biventricular systolic function. Rhythm strips reviewed all were normal. Cardiac Diagnosis: Bicuspid aortic valve with trivial to mild aortic stenosis, peak instantaneous systolic pressure gradient of 16 mm Hg and trivial regurgitation. Moderate to severely dilated ascending aorta 39 mm with mildly dilated aortic root. Trivial mitral valve insufficiency. Non-cardiac diagnosis: Post- first : uncomplicated Rec: No major concerns 2. Can come off telemetry by am. 3. Follow-up with Cardiology already scheduled for 3 months. Should you have any further questions or suggestions, please don't hesitate to call me, Sincerely, Chepe Peraza MD, [facility] Professor of Pediatric [facility] Chief, Pediatric Cardiology This note is dictated with the use of M*Modal.Please note that this dictation was completed with computer voice recognition software. Quite often unanticipated grammatical, syntax, homophones, and other interpretive errors are inadvertently transcribed by the computer software. Please disregard these errors. Please excuse any errors that have escaped final proofreading. [employer] 03-13-2024 Consult note Associated Order (s): IP CONSULT TO CARDIOLOGY Adult-congenital Cardiology Consultation Cardiology attending: Chepe Peraza MD Reason for Consultation: Congenital aortic bicuspid aortic valve and aortic dilation s/p Date of Consultation: March 13, 2024 Patient: Lisa Cardenas Date of : 1995 Date of Visit: 03/13/2024 HPI: Lisa is a 29-year-old female woman now > 12 hours post- who has been followed by me with a bicuspid aortic valve with minimal aortic stenosis and trivial regurgitation at 40.5 weeks. There is associated ascending aortic dilation with preserved heart function. She did not have any cardiac related issues and did well with pitocin-augmented delivery with passive second stage and use of epidural anesthesia. Previous ultrasound had demonstrated bilateral choroid plexus cysts which have since resolved and there is an echogenic structure in the left ventricle which is commonly seen but no other congenital cardiac abnormality was seen in the fetus. Delivered last pm. Patient currently asymptomatic except for minimal chest tightness which has since resolved. She had rare palpitations with no documented dysrhythmia on telemetry. Non-cardiac ROS is unremarkable. Delivery was vacuum-assisted vaginal and uncomplicated except for second-degree lac. : 8,9. No distress. Current Facility-Administered Medications Medication Dose Route Frequency Provider Last Rate Last Admin acetaminophen (TYLENOL EXTRA STRENGTH) tablet 1,000 mg 1,000 mg oral Q8H PRN Jovanna [place], MD 1,000 mg at 03/13/24 0454 acetaminophen (TYLENOL) tablet 650 mg 650 mg oral Q4H PRN Jovanna Esteban MD benzocaine-menthoL (DERMOPLAST) topical spray 1 Application 1 Application topical PRN Jovanna Esteban MD bisacodyL (DULCOLAX) suppository 10 mg 10 mg rectal Once PRN Jovanna Esteban MD carboprost (HEMABATE) injection 250 mcg 250 mcg intramuscular Once PRN Jovanna Esteban MD docusate sodium (COLACE) capsule 100 mg 100 mg oral BID Jovanna Esteban MD 100 mg at 03/13/24 0932 hydrocortisone (ANUSOL-HC) 2.5 % rectal cream 1 Application 1 Application rectal PRN Jovanna Esteban MD ibuprofen (MOTRIN) tablet 800 mg 800 mg oral Q8H PRN Jovanna Esteban MD 800 mg at 03/13/24 0932 lactated ringers infusion 999 mL/hr intravenous Continuous PRN Jovanna Esteban MD methylergonovine (METHERGINE) injection 200 mcg 200 mcg intramuscular Once PRN Jovanna Esteban MD miSOPROStoL (CYTOTEC) tablet 800 mcg 800 mcg sublingual Once PRN Jovanna Esteban MD modified lanolin (LANSINOH) 100 % cream cream 1 Application 1 Application topical PRN Jovanna Esteban MD oxytocin (PITOCIN) infusion 30 units/500 mL in lactated ringers (0.06 units/mL premix) 42 mariela-units/min intravenous Continuous PRN [place] MD Stopped at 03/13/24 0132 oxytocin (PITOCIN) injection 10 Units 10 Units intramuscular Once PRN Jovanna Esteban MD polyethylene glycol (GLYCOLAX) packet 17 g 17 g oral Daily Jovanna Esteban MD sodium chloride 0.9 % flush 3 mL 3 mL intravenous Q8H Jovanna Esteban MD 3 mL at 03/13/24 0830 sodium chloride 0.9 % flush 3 mL 3 mL intravenous PRN Jovanna Esteban MD tranexamic acid (CYKLOKAPRON) injection 1,000 mg 1,000 mg intravenous PRN MD rod Hardin (PREPARATION H TOTABLE) pad 1 Application 1 Application topical PRN Jovanna Esteban MD Allergies Allergen Reactions Doxycycline ulercative esophagus Clindamycin ulcerated esophagus Clindamycin Erythromycin Amoxicillin Rash Amoxicillin Rash Biaxin [Clarithromycin] Rash Clarithromycin Rash Past Medical History: Diagnosis Date Bicuspid aortic valve Past Surgical History: Procedure Laterality Date ANGIOGRAM [...] Cholesterol Neg Hx Thyroid Issues Neg Hx Review of Systems - Respiratory ROS, Gastrointestinal ROS, Genitourinary ROS, Hematologic, Endocrinologic ROS, Musculoskeletal, Immunologic, Infectious ROS, Neurologic ROS are unremarkable. On physical exam the patient was alert, cooperative and in NAD. Vitals: 03/12/24 2330 03/13/24 0200 03/13/24 0700 03/13/24 0800 BP: 121/76 105/71 90/64 Pulse: 89 102 75 80 Resp: 15 20 12 19 Temp: 37.1 C (98.8 F) 36.9 C (98.4 F) TempSrc: Oral Oral SpO2: 98% HEENT was normal. Lungs were clear to auscultation. Neck exam demonstrated no JVD or AI. Chest was normal active without thrill. There was a regular rate and rhythm with a normal S1, very easily audible aortic ejection click, and prominent S2 with physiologic splitting of the S2. No murmurs were heard in systole or diastole. Abdominal exam was remarkable for post- abdomen. No hepatosplenomegaly. Peripheral extremities demonstrated symmetrical pulses and pulse pressure without BF delay. No clubbing, cyanosis, or edema was seen with normal capillary refill. Skin & joint exam was normal. 30 week Echocardiogram demonstrated: Bicuspid aortic valve with trivial to mild aortic stenosis, peak instantaneous systolic pressure gradient of 16 mm Hg. There is moderate to severely dilated ascending aorta (unchanged) at 39 mm with mildly dilated aortic root. Trivial aortic and mitral valve insufficiency. Normal biventricular systolic function. Rhythm strips reviewed all were normal. Cardiac Diagnosis: Bicuspid aortic valve with trivial to mild aortic stenosis, peak instantaneous systolic pressure gradient of 16 mm Hg and trivial regurgitation. Moderate to severely dilated ascending aorta 39 mm with mildly dilated aortic root. Trivial mitral valve insufficiency. Non-cardiac diagnosis: Post- first : uncomplicated Rec: No major concerns 2. Can come off telemetry by am. 3. Follow-up with Cardiology already scheduled for 3 months. Should you have any further questions or suggestions, please don't hesitate to call me, Sincerely, Chepe Peraza MD, [facility] Professor of Pediatric [facility] Chief, Pediatric Cardiology This note is dictated with the use of M*Modal.Please note that this dictation was completed with computer voice recognition software. Quite often unanticipated grammatical, syntax, homophones, and other interpretive errors are inadvertently transcribed by the computer software. Please disregard these errors. Please excuse any errors that have escaped final proofreading. documented in this encounter [employer] 03-12-2024 Labor and delivery summary note Vaginal Delivery Note Lisa Cardenas is a at 40w4d a/w mIOL for maternal bicuspid aortic valve with aortic root dilation. Induction was done with pitocin per protocol and cervical ripening with cook balloon. Patient received an epidural and amniotomy performed. The pt progressed to complete +2 station. Due to maternal cardiovascular disease cardiology recommended assisted second stage of delivery. Kiwi vacuum was applied with minimal maternal pushing one pull was performed with a pop-off noted. The vacuum was then reapplied and with contractions and minimal maternal pushing another pull was attempted with a pop off noted when head was . Patient did a final push and delivered head over intact perineum. No nuchal cord present and reduced. Anterior and posterior shoulder were easily delivered and remainder of body followed. After 1 minute, the cord was clamped x2 and cut and infant was passed to nursing for evaluation. Pitocin was started per protocol. Cord segment was cut and cord blood obtained. Placenta was delivered with gentle traction. bleeding was stable. Fundus firm. 2nd degree laceration noted. All sponge and needle counts were correct. Anesthesia: epidural Delivery type: Vaginal, Vacuum (Extractor) Rupture of Membranes: Artificial;Intact 03/12/2024 at 9:47 AM Shoulder Dystocia: no Time of Delivery: 2103 Infant Weight: 3310g Gender: female Apgars: 8, 9 NICU attended delivery: no Placenta Delivery: spontaneous, intact Episiotomy: no Laceration: 2nd degree, repaired 3-0 vicryl Estimated Blood Loss: 200mL Dr. Margarito Dahl MD was present and participated in the delivery. Ines Wilson MD Tariff Expert Resident, PGY-3 Cosigned by Margarito Posada MD at 03/12/2024 10:18 PM EST Associated attestation - Margarito Cabrera MD - 03/12/2024 10:18 PM EST I was present for the entire delivery and agree with above [facility] 03-12-2024 Plan of care note Problem: Pain Goal: Patient goal is pain score less than 4, able to rest, and participant in treatment plan as appropriate Description: INTERVENTIONS: 1. Encourage patient or legal construction representative to report early pain and ask for pain medicine when needed 2. Assess pain using appropriate pain scale and include the scale used when documenting 3. Administer analgesics based on type and severity of pain and evaluate response within appropriate time frame 4. Implement non-pharmacological measures as appropriate and evaluate response 5. Consider cultural and social influences on pain and pain management 6. Notify LIP if interventions ineffective or patient reports new pain 7. Monitor vital signs including pulse ox, end-tidal CO2 based on pain intervention 8. Reassess pain per policy 9. Teach patient or legal construction representative interventions for comforting Outcome: Progressing Note: Evaluation of progress towards goal: Patient verbalizes tolerable level of pain at this time. Pain medications will be given as needed. Problem: Safety Goal: Patient will be injury free during hospitalization Description: INTERVENTIONS: 1. Assess patient's risk for falls and implement fall prevention plan of care per policy 2. Provide and maintain a safe environment 3. Proper use of double Identifiers 4. Medication administration using the 5 rights 5. Hand hygiene 6. Specimens are labeled at the bedside 7. Instruct patient/ patient construction representative about use of safety devices 8. Include patient/ patient construction representative in decisions related to safety Outcome: Progressing Note: Evaluation of progress towards goal: Safe environment maintained. Medications administered using 5 rights. Fall prevention plan implemented as needed. Problem: Infection Goal: Absence of infection during hospitalization Description: INTERVENTIONS 1. Assess and monitor for signs and symptoms of infection. 2. Monitor lab/diagnostic results. 3. Monitor all insertion sites i.e., indwelling lines, tubes and drains. 4. Monitor endotracheal (as able) and nasal secretions for changes in amount and color. 5. Administer medications as ordered. 6. Instruct and encourage patient and family to use good hand hygiene technique. 7. Identify and instruct patient/patient construction representative in use of appropriate isolation precautions for identified infection/symptoms. 8. Provide and discuss with patient/patient construction representative on educational MDRO sheet. 9. Encourage and monitor nutritional status daily and consult drafter seismograph if indicated. 10. Implement neutropenic guidelines as needed. Outcome: Progressing Note: Evaluation of progress towards goal: Patient is free from signs and symptoms of infection. Problem: Knowledge Deficit Goal: Patient/patient construction representative demonstrates understanding of disease process, treatment plan, medications, and discharge instructions Description: INTERVENTIONS 1. Complete learning assessment and assess knowledge base 2. Provide teaching at level of understanding 3. Provide teaching via preferred learning method(s) Outcome: Progressing Note: Evaluation of progress towards goal: Teaching provided as needed at patient's level of understanding. Problem: Discharge Planning Goal: Discharge to post-acute care, other facility, or home with appropriate resources Description: Patient's goal is: INTERVENTIONS 1. Conduct assessment to determine patient/family and health care team treatment goals, and need for post-acute services based on payer coverage, community resources, and patient preferences, and barriers to discharge 2. Coordinate with Social work, Care Navigation, and Utilization Review to arrange appropriate level of services according to patient's needs based on patient preference and payer coverage in collaboration with the physician and health care team 3. Address psychosocial, clinical, and financial barriers to discharge as identified in assessment in conjunction with the patient/family and health care team 4. Consult appropriate ancillary services (i.e.. PT/OT/ST, etc) as needed 5. Communicate with and update the patient/family, physician, and health care team regarding progress on the discharge plan 6. Identify discharge learning needs (meds, wound care, etc). 7. Arrange for needed discharge transportation as appropriate Outcome: Progressing Note: Evaluation of progress towards goal: pt discharged at a later date Problem: Low Risk Fall Score Description: Tuttle Fall Score of 0 - 24 or indicated by [facility] Assessment Goal: Patient should be free from fall Description: Interventions: 1. [place] to environment 2. Hourly rounds addressing the 4 P's (Pain, Positioning, Possessions, Potty) 3. Clear area of hazards (spills, clutter, electrical cords, unnecessary equipment) 4. Place equipment (bed & TV controls, call light, phone, urinal) within reach 5. Encourage patient to wear glasses and hearing aides as appropriate 6. Maintain bed in lowest position 7. Lock wheels on bed/wheelchair 8. Provide adequate lighting, including night light 9. Assess need for additional bedding, food/fluids, pain med's prior to sleep/routinely 10. Provide gripper slippers or personal non-skid footwear 11. Teach patient and patient construction representative to maintain environment for safety and engage in all aspects of fall prevention program Outcome: Progressing Note: Evaluation of progress towards goal: Patient understands fall prevention plan. Problem: Moderate - High Risk Fall Score Description: Tuttle Fall Score of =/> 25 or indicated by [facility] Assessment Goal: Patient should be free from fall Description: Interventions: 1. [place] to environment 2. Hourly rounds addressing the 4 P's (Pain, Positioning, Possessions, Potty) 3. Clear area of hazards (spills, clutter, electrical cords, unnecessary equipment) 4. Place equipment (bed & TV controls, call light, phone, urinal) within reach 5. Encourage patient to wear glasses and hearing aides as appropriate 6. Maintain bed in lowest position 7. Lock wheels on bed/wheelchair 8. Provide adequate lighting, including night light 9. Assess need for additional bedding, food/fluids, pain med's prior to sleep/routinely 10. Provide gripper slippers or personal non-skid footwear 11. Teach patient and patient construction representative to maintain environment for safety and engage in all aspects of fall prevention program 12. Remind patient to call for help before getting out of bed 13. Initiate bed/chair/exit alarms supportive devices as appropriate, (chair wedge, no-skid floor mat, raised edge mattress, hip protectors) 14. Locate patient bed assignment for optimal visualization 15. Evaluate and identify Safe Patient Handling Equipment needs 16. Provide supervision when out of bed or chair 17. Utilize gait belt as needed to assist with ambulation 18. Place adaptive equipment (cane, walker) within reach 19. Request patient construction representative bring adaptive equipment/mobility aids from home or obtain and provide as needed 20. Consult pharmacy regarding effects of med's affecting mobility, cognition, and alternatives 21. Obtain physician order for PT if risk factors associated with mobility are present 22. Obtain physician order for OT as appropriate 23. Utilize diversional activities 24. Educate patient and patient construction representative how to maintain a safe environment during visitation times (notify nurse prior to leaving bedside) 25. Consider appropriateness of medical or non-medical anthropologist 26. Set up voiding schedule as appropriate (every 2 hours) Outcome: Progressing Note: Evaluation of progress towards goal: Patient understands fall prevention plan. Problem: Cardiovascular - Adult Goal: Absence of cardiac dysrhythmias or at baseline Description: INTERVENTIONS: 1. Continuous cardiac monitoring, monitor vital signs, obtain 12 lead EKG as ordered 2. Monitor for therapeutic effect/ side effects and safely 3. Administer antiarrhythmic and heart rate control medications as ordered 3. Initiate emergency measures for life threatening arrhythmias 4. Monitor labs and administer replacement/adjust therapy as ordered Outcome: Progressing Note: Evaluation of progress towards goal: pt monitored per continuous telemetry Problem: Induction Goal: Patient will verbalize understanding of induction process Description: INTERVENTION 1. Educate patient about the induction process Outcome: Progressing Note: Evaluation of progress towards goal: pt verbalizes understanding of the induction process Additional Comments: [employer] [facility] 03-12-2024 Plan of care note Cook balloon placed without difficulty. Both balloons filled with 80mL of fluid. Patient tolerated well. Will remove at 1230 on 03/12. Marine Head MD Ob-Finisher Denture Resident, PGY-3 . [facility] [employer] [facility] 03-12-2024 Plan of care note Cook balloon placed without difficulty. Both balloons filled with 80mL of fluid. Patient tolerated well. Marine Head MD Ob-Finisher Denture Resident, PGY-3 [employer] 03-11-2024 History and physical note ObGyn History and Physical Chief Complaint: mIOL d/t maternal cardiac disease SUBJECTIVE HPI Lisa Cardenas is a 29 y.o. @ 40w4d who presents with mIOL d/t maternal cardiac disease. Patient has a bicuspid aortic valve with mild post dilated valvular aortic dilation in ascending aorta and has been evaluated by both MFM and cardiology. Patient is asymptomatic from a cardiac standpoint. She denies chest pain, shortness of breath, palpitations. She reports intermittent contractions. Reports some vaginal spotting after her cervix was checked today. Denies leakage of fluid. Reports normal movement. Complicated By: 1. Bicuspid aortic valve with mild post dilated valvular aortic dilation in ascending aorta 2. Echogenic cardiac focus and choroid plexus cyst 3. Maternal gestational hypothyroidism Review of Systems - 14-point review of systems negative except as noted above Allergies Allergies Allergen Reactions Doxycycline ulercative esophagus Clindamycin ulcerated esophagus Clindamycin Erythromycin Amoxicillin Rash Amoxicillin Rash Biaxin [Clarithromycin] Rash Clarithromycin Rash ObGyn Hx OB History Para Term AB Living 1 0 0 0 0 SAB IAB Ectopic Multiple Live Births 0 0 0 # Outcome Date GA Lbr Randy/2nd Weight Sex Type Anes PTL Lv 1 Current Medical Hx Past Medical History: Diagnosis Date Bicuspid aortic valve Surgical Hx Past Surgical History: Procedure Laterality Date ANGIOGRAM chest CHOLECYSTECTOMY TONSILLECTOMY Family Hx Family History Problem Relation Age of Onset [...] Cholesterol Neg Hx Thyroid Issues Neg Hx Psychosocial Social History Socioeconomic History Marital status: Tobacco Use Smoking status: Never Smokeless tobacco: Never Vaping Use Vaping status: Never Used Substance and Sexual Activity Alcohol use: Not Currently Comment: rarely Drug use: Never Sexual activity: Yes Partners: Male Social History Narrative Merged History Encounter Social Drivers of Health Food Insecurity: No Food Insecurity (03/11/2024) Hunger Screening Food Insecurity - Worry: Never True Food Insecurity - Inability: Never True Received from [facility] [place] Safety & Environment OBJECTIVE Vitals Vitals: 03/11/24 2320 BP: 110/85 Resp: 16 Temp: 36.9 C (98.4 F) Physical Exam: Gen: NAD Abd: gravid, nontender Ext: no edema or redness in bilateral LE Neuro: AAOx3 SVE: Dilation: 1 Effacement (%): 50 Station: -2 Presentation: Vertex Method: Manual OB Examiner: Dr. Head FHT: Baseline Rate A: 125 bpm, moderate variability, present acceleration, absent decelerations [place]: q2-3 minutes Labs ABO/Rh: A positive Group B Strep: negative Rubella: Hepatitis B Surface Antigen: Lab Results Component Value Date HEPBSAG NEGATIVE 08/21/2023 HIV: non-reactive RPR (VDRL): Lab Results Component Value Date SYPHILIS NON REACTIVE 08/21/2023 1hr OGTT: 103 Scans MFM US 02/12: cephalic, DVP 6.0, anterior, EFW 3002g (57%ile), AC 89%ile ASSESSMENT & PLAN Lisa Cardenas is a 29 y.o. @ 40w4d who presents for IOL 1. Intrauterine @ 40w4d here for scheduled MIOL d/t maternal cardiac disease - Admit to labor and delivery - BSUS showed cephalic presentation - CBC - Type and screen - Urine drug screen - Painter score 5 - Induction: cervical ripening with cook balloon and pitocinn - Risks/benefits/alternatives explained to patient who stated understanding and consent - Continuous external monitoring 2. Maternal Bicuspid Aortic Valve - evaluated by cardiology - ok for vaginal delivery but recommend assisted second stage - telemetry during labor and - patient will be seen by cardiology inpatient Fluids/electrolytes/nutrition - Clear liquid diet - 125 ml/hr IVF lactated ringers 3. Rh+/RI/GBS-/sp Tdap - Rhogam /rhogam not indicated 4. Pain - Tylenol 650 mg q4h PO - Nubain 5-10 mg IV q1h prn pain - Patient may have epidural Marine [place] MD Tariff Expert Resident, PGY-3 Cosigned by Norma Kincaid MD at 03/12/2024 7:49 AM EST Associated attestation - Norma Kincaid MD - 03/12/2024 7:49 AM EST Attending Attestation: I discussed the critical/bai portions of the service. I was directly involved in the management and treatment plan of the patient. I reviewed the resident's note. Additional Notes/Findings: Admit for induction. NORMA KINCAID MD [facility] 03-11-2024 History and physical note ObGyn History and Physical Chief Complaint: mIOL d/t maternal cardiac disease SUBJECTIVE HPI Lisa Cardenas is a 29 y.o. @ 40w4d who presents with mIOL d/t maternal cardiac disease. Patient has a bicuspid aortic valve with mild post dilated valvular aortic dilation in ascending aorta and has been evaluated by both MFM and cardiology. Patient is asymptomatic from a cardiac standpoint. She denies chest pain, shortness of breath, palpitations. She reports intermittent contractions. Reports some vaginal spotting after her cervix was checked today. Denies leakage of fluid. Reports normal movement. Complicated By: 1. Bicuspid aortic valve with mild post dilated valvular aortic dilation in ascending aorta 2. Echogenic cardiac focus and choroid plexus cyst 3. Maternal gestational hypothyroidism Review of Systems - 14-point review of systems negative except as noted above Allergies Allergies Allergen Reactions Doxycycline ulercative esophagus Clindamycin ulcerated esophagus Clindamycin Erythromycin Amoxicillin Rash Amoxicillin Rash Biaxin [Clarithromycin] Rash Clarithromycin Rash ObGyn Hx OB History Para Term AB Living 1 0 0 0 0 SAB IAB Ectopic Multiple Live Births 0 0 0 # Outcome Date GA Lbr Randy/2nd Weight Sex Type Anes PTL Lv 1 Current Medical Hx Past Medical History: Diagnosis Date Bicuspid aortic valve Surgical Hx Past Surgical History: Procedure Laterality Date ANGIOGRAM chest CHOLECYSTECTOMY TONSILLECTOMY Family Hx Family History Problem Relation Age of Onset [...] Cholesterol Neg Hx Thyroid Issues Neg Hx Psychosocial Social History Socioeconomic History Marital status: Tobacco Use Smoking status: Never Smokeless tobacco: Never Vaping Use Vaping status: Never Used Substance and Sexual Activity Alcohol use: Not Currently Comment: rarely Drug use: Never Sexual activity: Yes Partners: Male Social History Narrative Merged History Encounter Social Drivers of Health Food Insecurity: No Food Insecurity (03/11/2024) Hunger Screening Food Insecurity - Worry: Never True Food Insecurity - Inability: Never True [facility] from [facility] Safety & Environment OBJECTIVE Vitals Vitals: 03/11/24 2320 BP: 110/85 Resp: 16 Temp: 36.9 C (98.4 F) Physical Exam: Gen: NAD Abd: gravid, nontender Ext: no edema or redness in bilateral LE Neuro: AAOx3 SVE: Dilation: 1 Effacement (%): 50 Station: -2 Presentation: Vertex Method: Manual OB Examiner: Dr. Head FHT: Baseline Rate A: 125 bpm, moderate variability, present acceleration, absent decelerations [place]: q2-3 minutes Labs ABO/Rh: A positive Group B Strep: negative Rubella: Hepatitis B Surface Antigen: Lab Results Component Value Date HEPBSAG NEGATIVE 08/21/2023 HIV: non-reactive RPR (VDRL): Lab Results Component Value Date SYPHILIS NON REACTIVE 08/21/2023 1hr OGTT: 103 Scans MFM US 02/12: cephalic, DVP 6.0, anterior, EFW 3002g (57%ile), AC 89%ile ASSESSMENT & PLAN Lisa Mackenzietoni is a 29 y.o. @ 40w4d who presents for IOL 1. Intrauterine @ 40w4d here for scheduled MIOL d/t maternal cardiac disease - Admit to labor and delivery - BSUS showed cephalic presentation - CBC - Type and screen - Urine drug screen - Painter score 5 - Induction: cervical ripening with cook balloon and pitocinn - Risks/benefits/alternatives explained to patient who stated understanding and consent - Continuous external monitoring 2. Maternal Bicuspid Aortic Valve - evaluated by cardiology - ok for vaginal delivery but recommend assisted second stage - telemetry during labor and - patient will be seen by cardiology inpatient Fluids/electrolytes/nutrition - Clear liquid diet - 125 ml/hr IVF lactated ringers 3. Rh+/RI/GBS-/sp Tdap - Rhogam /rhogam not indicated 4. Pain - Tylenol 650 mg q4h PO - Nubain 5-10 mg IV q1h prn pain - Patient may have epidural [place] MD Tariff Expert Resident, PGY-3 Cosigned by Norma Kincaid MD at 03/12/2024 7:49 AM EST Associated attestation - Norma Kincaid MD - 03/12/2024 7:49 AM EST Attending Attestation: I discussed the critical/bai portions of the service. I was directly involved in the management and treatment plan of the patient. I reviewed the resident's note. Additional Notes/Findings: Admit for induction. NORMA KINCAID MD documented in this encounter [employer] 03-11-2024 History of Present illness Narrative Pt is here for HROB visit at 40w3d Pt denies lof, vb, ctx Pt reports +fm Pt has no concerns at this time Urine ykd-qcaxzthnky-dancj [facility] HROB VISIT Chief Complaint Patient presents with Routine Visit Lisa Cardenas is a 29 y.o. with an Estimated Date of Delivery: 03/08/24 at 40w3d by LMP=8wk us here for routine care. Patient reports irregular possible contractions vs back pain, denies loss of fluid, denies vaginal bleeding, reports movement complicated by: Patient Active Problem List Diagnosis Bicuspid aortic valve Palpitations Ocular migraine Dizziness Congenital heart disease Ascending aorta dilation (CMS-HCC) care in third trimester Maternal cardiovascular disease affecting in third trimester Current Medications: Current Outpatient Medications: famotidine (PEPCID) 10 mg tablet, Take 1 tablet (10 mg total) by mouth daily as needed for heartburn., Disp: , Rfl: no115/iron/folic acid ( 19 ORAL), Take by mouth., Disp: , Rfl: Vitals: BP: (112)/(76) 112/76 Wt Readings from Last 3 Encounters: 03/11/24 78.5 kg (173 lb 1.6 oz) 03/04/24 78.4 kg (172 lb 12.8 oz) 02/26/24 78.1 kg (172 lb 3.2 oz) Urine dipstick shows positive for sml leukocytes. Physical Exam: FHT: 135 Fundal height: 40 cm Gen: NAD Abd: gravid, nontender Ext: no redness or edema in bilateral LE Neuro: AAOx3 SVE 1/50/-2 A/P 29 y.o. with an Estimated Date of Delivery: 03/08/24 at 40w3d here for routine care Problem List Ascending aorta dilation (CMS-HCC) - Primary care in third trimester Overview testing: weekly NST/DVP until delivery (see 11/[address] Crowley) [facility] and 28 [facility] labs [...] be a candidate for Cardiology consult intrapartum. Patient to be induced ros Routine care Patient to be delivered by assisted second stage of delivery due to maternal bicuspid aortic valve with aortic root dilatation L&D called to have patient be induced ros. L&D currently full, they will notify patient when they have a spot available. Patient will need cervical ripening. Painter score 5. GBS- Resident Attestation: The patient was seen and discussed with preceptor Dr Sparrow. Discussion/Comments: Attending Attestation: I saw the patient. I performed the critical/bai portions of the service. I was directly involved in the management and treatment plan of the patient. I reviewed the resident's note. Additional Notes/Findings: at 40w3d - IOL for maternal cardiac disease, echo stable and is a candidate for vaginal delivery with assisted 2nd stage -IOL submitted today RTC Kortney Sparrow DO [facility] History of Present illness Narrative Called patient to come for induction 03.02 at 0700. Patient states that she is following up in the office on to discuss mode of induction with her physicians. Pt is in the office for 39w1d routine visit Pt denies LOF,VB Some CTX Positive movement Pt denies any concerns at todays visit Urine bzr-bupqobyuks-ycchx High Risk Obstetrics - Return Visit at 39w3d Patient Active Problem List Diagnosis Bicuspid aortic valve Palpitations Ocular migraine Dizziness Congenital heart disease Ascending aorta dilation ([facility]-HCC) care in third trimester Maternal cardiovascular disease affecting in third trimester Good FM. Denies ctx, VB, LOF. Wt Readings from Last 3 Encounters: 03/04/24 78.4 kg (172 lb 12.8 oz) 02/26/24 78.1 kg (172 lb 3.2 oz) 02/18/24 77.3 kg (170 lb 6.4 oz) See flowsheet -- reviewed Alert, NAD [...] Dr. Crowley) Serial growth scans Transfer from [facility] Initial and 28 week labs normal. Placenta anterior 02/13/24 GBS Neg S/p TDaP Does not want to schedule IOL yet Will call when she has a date she would like to come in for IOL We did discuss rationale and recommendation again for IOL 39-40 wks RTC 1w if not delivered yet documented in this encounter [employer] 02-26-2024 History of Present illness Narrative [facility] High Risk Obstetrics Visit Return OB CC: Scheduled OB Visit None Problem List Active Problems Ascending aorta dilation ([facility]-HCC) care in third trimester - Primary Overview testing: weekly NST/DVP until delivery (see 11/[address] Crowley) Serial growth scans Transfer from [facility] Initial and 28 week labs normal. [...] Alert, NAD ABdomen: Soft, NT, nondistended Cervix: 0/30/-3 mid soft Haircutter: Love Wt Readings from Last 3 Encounters: 02/18/24 77.3 kg (170 lb 6.4 oz) 02/13/24 77.4 kg (170 lb 11.2 oz) 02/12/24 75.3 kg (166 lb) See flowsheet Urine dipstick shows Protein N Glucose N Imp/Plan at 38w2d Patient Active Problem List Diagnosis Bicuspid aortic valve Palpitations Ocular migraine Dizziness Congenital heart disease Ascending aorta dilation ([facility]-HCC) care in third trimester Maternal cardiovascular disease affecting in third trimester care Labor warnings/ Movement discussed Maternal cardiovascular disease (dilated ascending aorta and bicuspid aortic valve) For delivery at 39-40 weeks Continue weekly testing until delivery at [place] Assisted 2nd stage--Discussed with patient that there [...] changes mind. Discussed that if waits until infant is deep in pelvis, that may not [...] has no concerns at this time Urine rxk-fashaenenj-qlixw documented in this encounter [employer] 02-18-2024 History of Present illness Narrative [facility] High Risk Obstetrics Visit Return OB CC: Scheduled OB Visit None Problem List Active Problems Bicuspid aortic valve Ascending aorta dilation ([facility]-HCC) care in third trimester - Primary Overview testing: weekly NST/DVP until delivery (see 11/[address] Crowley) Serial growth scans Transfer from [facility] Initial and 28 week labs normal. Placenta [...] Dizziness Congenital heart disease Ascending aorta dilation ([facility]-HCC) care in third trimester Maternal cardiovascular disease affecting in third trimester care Labor warnings/ Movement discussed Maternal cardiovascular disease with bicuspid arotic valve and dilated ascending aorta. [facility] I For assisted 2nd stage delivery Echo completed 01/13/24 Weekly testing. Being completed at [place] Serial growth scan Last done 02/13/24 Cardiac [...] some pelvis pressure documented in this encounter [employer] 02-14-2024 Note PAPER STACKER: [facility] [address] [place] [address] PH: [phone] F: [phone] cardiology and maternal adult congenital cardiology consultation [...] suggestions, please don't hesitate to call me [phone], Sincerely, Chepe Peraza MD, [facility] Professor of Pediatric [facility] Chief, Pediatric Cardiology This note is dictated with the use of M*Modal.Please note that this dictation was completed with computer voice recognition software. Quite often unanticipated grammatical, syntax, homophones, and other interpretive errors are inadvertently transcribed by the computer software. Please disregard these errors. Please excuse any errors that have escaped final proofreading. [facility] 01-26-2024 History of Present illness Narrative Reason for Appointment: Patient ID: Lisa Cardenas is a 28 y.o. female who presents for Routine Visit Patient presents today for Return OB appointment. MEDICATIONS Current Outpatient Medications Medication Instructions omega-3 1000 MG capsule capsule [place]-3 Fatty Acids (OMEGA 3 PO) Take by [...] nursing note reviewed. Exam conducted with a solar energy system installer helper present. Vitals: Estimated body mass index is [...] Patient has her first appointment with high man tomorrow for Complete Transfer of Care for remainder of as recommended by [facility]. Patient to RTC in 2 weeks unless told otherwise by M. Documented by Radha Daly LPN on behalf of: Sammy Stu, DO documented in this encounter [facility] 01-14-2024 History of Present illness Narrative Reason for Appointment: Patient ID: Lisa Cardenas is a 28 y.o. female who presents for Routine Visit Patient presents today for Return OB appointment. MEDICATIONS Current Outpatient Medications Medication Instructions omega-3 1000 MG capsule capsule [place]-3 Fatty Acids (OMEGA 3 PO) Take by [...] of: TAVIA Parsons documented in this encounter [facility] 01-13-2024 Note Lonnie Peres [address] [address] January 13, 2024 Patient: Lisa Cardenas Date [...] on a single (more content not included)... [facility] 12-30-2023 History of Present illness Narrative Reason for Appointment: Patient ID: Lisa Cardenas is a 28 y.o. female who presents for Routine Visit Patient presents today for Return OB appointment. MEDICATIONS Current Outpatient Medications Medication Instructions [place]-3 Fatty Acids (OMEGA 3 PO) Take by [...] nursing note reviewed. Exam conducted with a solar energy system installer helper present. Vitals: Estimated body mass index is [...] test I35.0 4. Hypothyroid in , antepartum ([facility]) O99.280 US biophysical profile w [...] Sammy Peraza DO documented in this encounter [facility] 12-17-2023 History of Present illness Narrative Reason for Appointment: Patient ID: Lisa Cardenas is a 28 y.o. female who presents for Routine Visit Patient presents today for Return OB appointment. MEDICATIONS Current Outpatient Medications Medication Instructions [place]-3 Fatty Acids (OMEGA 3 PO) Oral Vit-DSS-Fe [...] Grandfather Michael Tiwariner Hypertension Paternal Grandmother Shagufta Walkere Breast cancer [...] nursing note reviewed. Exam conducted with a solar energy system installer helper present. Vitals: Estimated body mass index is [...] of: TAVIA Parsons documented in this encounter [facility] 11-26-2023 History of Present illness Narrative Reason for Appointment: Patient ID: Lisa Cardenas is a 28 y.o. female who presents for Routine Visit Patient presents today for Annual Exam. MEDICATIONS Current Outpatient Medications Medication Instructions [place]-3 Fatty Acids (OMEGA 3 PO) Oral Vit-DSS-Fe [...] Objective: Physical Exam Constitutional: Appearance: Normal appearance. HENT: Head: Normocephalic. Nose: Nose normal. Mouth/Throat: Mouth: Mucous membranes are moist. Cardiovascular: Rate and Rhythm: Normal rate. Pulmonary: Effort: Pulmonary effort is normal. Abdominal: General: Bowel sounds are normal. Palpations: Abdomen is soft. Musculoskeletal: General: Normal range of motion. Cervical back: Normal range of motion. Neurological: General: No focal deficit present. Mental Status: She is alert. Skin: General: Skin is warm and dry. Psychiatric: Mood and Affect: Mood normal. Vitals and nursing note reviewed. Exam conducted with a solar energy system installer helper present. Vitals: Estimated body mass index is 27.12 kg/m as calculated from the following: Height as of 05/27/22: 5' 4 . Weight as of this encounter: 158 lb. BP: 106/70 Patient's last menstrual period was 06/02/2023. ASSESSMENT & PLAN ICD-10-CM 1. Second trimester Z34.92 POCT urinalysis dipstick manually resulted Return OB: Patient presents today for a routine obstetrics appointment. Patient is currently 25w2d . Patient states she is doing well but has complaints of being tired due to current . Patient has verbalizes frequent movement. Orders Placed This Encounter Procedures POCT urinalysis dipstick manually resulted Follow Up: Patient is to return to office in 3week for routine OB appointment. Documented by TAVIA Parsons on behalf of: TAVIA Parsons documented in this encounter [facility] 10-30-2023 History of Present illness Narrative Reason for Appointment: Patient ID: Lisa Cardenas is a 28 y.o. female who presents for Routine Visit Patient presents today for Return OB appointment. MEDICATIONS Current Outpatient Medications Medication Instructions Vit-DSS-Fe Fum-FA ( 19) tablet 1 tablet, [...] Diana Hanks Hypertension Father's Sister Lakisha Wolfgang Jhonny Hypertension Father's Brother Tucker Peña Seizures [...] nursing note reviewed. Exam conducted with a solar energy system installer helper present. Vitals: Estimated body mass index is 26.45 kg/m as calculated from the following: Height as of 05/27/22: 5' 4 . Weight as of this encounter: 154 lb 1.9 oz. BP: 120/70 Patient's last menstrual period was 06/02/2023. ASSESSMENT & PLAN ICD-10-CM 1. 21 weeks gestation of Z3A.21 POCT urinalysis dipstick manually resulted 2. Diabetes mellitus screening Z13.1 CBC Glucose tolerance, 1 hour Patient presents today for a routine obstetrics appointment. Patient is currently 21w3d with a Estimated Date of Delivery: 03/08/24. Patient is scheduled with [facility] on November 17 for follow up. Patient also sees cardiology due to enlarged aorta. Patient to return to clinic in 4 weeks for routine OB appointment. [facility] recommends that patient deliver in [place]. Patient voiced that she is having ECHO done tomorrow. Discussed if patient desires to have testing done locally as far as NST/BPP's later on in until complete transfer of care towards end of . Documented by Radha Daly LPN on behalf of: Sammy Peraza DO documented in this encounter [facility] 10-07-2023 Note Lonnie Peres [address] [facility] [address] October 07, 2023 Patient: Lisa Cardenas Date [...] use. She is scheduled to fly to [place] to see her in the near future [...] Normal biventricular systoli (more content not included)... [facility] 10-07-2023 Note Outpatient echo Must use antibiotic for dental procedures May fly Passive second stage deliver in [facility] 09-22-2023 History of Present illness Narrative RFC: Patient with thyroid nodule. Most recent US showing nodule TI-RADS 3 Regan Neves, CYLINDER MACHINE OPERATOR-* HPI: Ms. Cardenas is a 28 y.o. [...] Hyperlipidemia, Hyperthyroidism, Hypogonadism male, Hypothyroidism, Liver disease, NE (myocardial infarction), Migraine, Multinodular goiter, LADY (obstructive [...] hours as needed. lidocaine viscous-Alum & Mag Yrkckbxau-Jhxprv-zibzefjiywPSNJA oral mouthwash Swish and swallow 15mL by mouth every 6 hours as needed. norgestimate-ethinyl estradiol (Sprintec 28) 0.25-35 MG-MCG tablet Take 1 tablet by mouth at bedtime. nystatin [id number] UNIT/ML oral suspension Swish and swallow 10 [...] Echogenicity: Hyperechoic or isoechoic (1 point) Shape: Lxwhn-ueba-jmfo (0 points) Margin: Smooth (0 points) Echogenic [...] Fellow, Division of Endocrinology, Diabetes, and Metabolism [facility] [place] [address] No follow-ups on file. Patient has verified [...] Fellow, Division of Endocrinology, Diabetes, and Metabolism [facility] [place] [address] documented in this encounter [facility] 09-22-2023 Instructions Latrice Hall MD - 09/22/2023 1:30 PM EDT It was great seeing you today! Division of Endocrinology Outpatient Care [facility] Follow-up appointments: Please arrive at [...] Any non-urgent results will be relayed via [employer] if you have signed up for this service or via a letter through the mail and/or phone call. Communication with your provider: - [employer] is highly recommended as the most efficient [...] help perpare you for your future visits: [email or web address] --> Patient Care section. Sincerely, Latrice Hlal MD Fellow, Division of Endocrinology, Diabetes, and Metabolism [facility] [place] [address] documented in this encounter [facility] 09-22-2023 Procedure note Associated Ord er(s): CHG US SOFT TISSUE HEAD & NECK REAL TIME IMGE DOCM Ms. Cardenas was seen and examined with Dr. Rayan, I independently verified the findings on US and agree with the documented report - thyroid ultrasound report appears in the notes tab. [facility] 09-22-2023 Procedure note Associated Ord er(s): CHG US SOFT TISSUE HEAD & NECK REAL TIME IMGE DOCM Ms. Cardenas was seen and examined with Dr. Hall, I independently verified the findings on US and agree with the documented report - thyroid ultrasound report appears in the notes tab. documented in this encounter [facility] 12-24-2022 History of Present illness Narrative Chief [...] N/A; Surgeon: Ramin Denney MD; [facility]TRA[facility] [...] 1 Bottle 0 lidocaine viscous-Alum & Mag Fecgoqtcp-Rxcpty-qmizuucgjhBEARO oral mouthwash Swish and swallow 15mL by mouth every 6 hours as needed. 240 mL 0 norgestimate-ethinyl estradiol (Sprintec 28) 0.25-35 MG-MCG tablet Take 1 tablet by mouth at bedtime. nystatin [id number] UNIT/ML oral suspension Swish and swallow 10 [...] 1 Bottle 0 lidocaine viscous-Alum & Mag Ichvsypze-Mkjyun-woewkhefyeLPKHY oral mouthwash Swish and swallow 15mL by mouth every 6 hours as needed. 240 mL 0 norgestimate-ethinyl estradiol (Sprintec 28) 0.25-35 MG-MCG tablet Take 1 tablet by mouth at bedtime. nystatin [id number] UNIT/ML oral suspension Swish and swallow 10 [...] not concerning. documented in this encounter [facility] 11-20-2022 History of Present illness Narrative Maternal- Medicine (High Risk Obstetrics) Consultation Indication for consultation: Congenital Bicuspid aortic valve Referring Provider: Herve Jimenez MD History Lisa Cardenas is a 27yo G0 LMP [id number] using nothing for contraception who presents for preconception consultation in the setting of hx congenital bicuspid aortic valve. Her history is also notable for a history of exercise induced asthma and thyroid nodule. She feels well today and has no complaints or concerns. She was recently seen by Dr. Peraza ([facility]) for preconception counseling on 05/21/2022 at [...] [facility]. She does not currently have an apparel embroidery digitizer. Ms. Lisa Cardenas has the following problems [...] Laterality: Bilateral; Surgeon: Charlotte Cárdenas MD; Location: [facility] SAME DAY SURGERY MAIN OR CHOLECYSTECTOMY ROBOTIC N/A 04/06/2019 Laterality: N/A; Surgeon: Ramin Denney MD; Location: [facility] MAIN OR WISDOM TEETH EXTRACTION - [...] 1 Bottle 0 lidocaine viscous-Alum & Mag Omxweoofw-Ohermx-pnpaplfuvaZTURB oral mouthwash Swish and swallow 15mL by mouth every 6 hours as needed. 240 mL 0 norgestimate-ethinyl estradiol (Sprintec 28) 0.25-35 MG-MCG tablet Take 1 tablet by mouth at bedtime. nystatin [id number] UNIT/ML oral suspension Swish and swallow 10 [...] . --. 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 The patient qualifies for [facility] risk classification II-III which confers an [...] and severity of complications: Recommendations during - LITIGATION COUNSEL referral for multi-disciplinary care coordination - Baseline [...] would be appropriate for co-managed care with [facility] for ultrasounds and visits every trimester and that she should contact and establish care obstetrical care with [facility] general apparel embroidery digitizer practice once has a positive test. Thank [...] and Gynecology Division of Maternal Medicine [facility] documented in this encounter [facility] 06-05-2021 Instructions Charlotte Cárdenas MD - 06/05/2021 11:42 AM EDT ASSESSMENT/PLAN: Status post tonsillectomy Healing well Pathology benign Followup as needed documented in this encounter [facility] 06-05-2021 History of Present illness Narrative POSTOPERATIVE [...] as needed documented in this encounter [facility] Evaluation note Diagnosis Postop check- Primary Follow-up examination, following unspecified surgery [facility] Encounter for preconception consultation- Primary Bicuspid aortic valve Congenital insufficiency of aortic valve [facility] Diagnosis Lymphadenopathy- Primary Enlargement of lymph nodes [facility] Diagnosis Lymphadenopathy Enlargement of lymph nodes [facility] Diagnosis Lymphadenopathy Enlargement of lymph nodes [facility] Diagnosis Thyroid nodule Nontoxic uninodular goiter [facility] Diagnosis Thyroid nodule- Primary Nontoxic uninodular goiter [facility] Diagnosis 28 weeks gestation of Third trimester state, incidental [facility] Diagnosis 30 weeks gestation of Third trimester state, incidental Aortic stenosis of mother during Hypothyroid in , antepartum (CMS/HCC) Vaginal discharge during in second trimester Encounter for screening for cervical length [facility]* Diagnosis Third trimester state, incidental 32 weeks gestation of documented in this encounter [facility]* Diagnosis Third trimester state, incidental 34 weeks gestation of documented in this encounter [facility] HealthcareEvaluation note* Diagnosis Second trimester state, incidental documented in this encounter [facility] HealthcareEvaluation note* Diagnosis 21 weeks gestation of Diabetes mellitus screening Screening for diabetes mellitus documented in this encounter [facility] HealthcareEvaluation note* Diagnosis Maternal cardiovascular disease affecting in third trimester- Primary care in third trimester Ascending aorta dilation (CMS-HCC) Thoracic aneurysm without mention of rupture [facility] Diagnosis Maternal cardiovascular disease affecting in third trimester- Primary care in third trimester documented in this encounter [facility] SystemEvaluation [facility]* Diagnosis Ascending aorta dilation (CMS-HCC)- Primary Thoracic aneurysm without mention of rupture Maternal cardiovascular disease affecting in third trimester care in third trimester [facility]* Diagnosis Encounter for induction of labor- Primary documented in this encounter [facility] SystemEvaluation [facility]* Diagnosis 6 weeks follow-up documented in this encounter [facility] HealthcareEvaluation note* Diagnosis Maternal cardiovascular disease affecting in third trimester- Primary care in third trimester Ascending aorta dilation (CMS-HCC) Thoracic aneurysm without mention of rupture Bicuspid aortic valve Congenital insufficiency of aortic valve [facility]* Diagnosis Melanocytic nevus of trunk- Primary Benign neoplasm of skin of trunk, except scrotum Melanocytic nevus of face, other location Blue nevus of right upper arm Seborrheic keratosis Dermatofibroma of right lower extremity Dermatofibroma Benign neoplasm of skin, site unspecified Dermatofibroma of left lower extremity documented in this [facility]* Attachments The following attachments cannot be sent through Care Everywhere. * [facility] SMO[facility] CESSATION LINKS [facility]ructionsNot on [facility]ructionsNot on file [facility]* Attachments The following attachments cannot be sent through Care Everywhere. * Control Options (Marshallese) [facility] for [facility] (narrative)* Misc (Routine) - Pending Review Specialty Diagnoses / Procedures Referred By Emanuel rodriguez Referred To Contact Procedures Discharge Follow-Up [place] MD [address] [id number] Phone: tel: fax: Referral ID Status Reason Start Date Expiration Date V isits Requested Visits Authorized [id number] Pending Review 03/14/2024 03/14/2025 1 1 * Misc (Routine) - Pending Review Specialty Diagnoses / Procedures Referred By Contmary carmen t Referred To Contact Procedures Hygiene [place] MD [address] [address] Phone: tel: fax: Referral ID Status Reason Start Date Expiration Date V isits Requested Visits Authorized [id number] Pending Review 03/14/2024 03/14/2025 1 1 [facility] Reason for Referral Status Reason Specialty Diagnoses / Procedures Referred By Contact Referred To Contact New Request Diagnoses Other fatigue Lymphadenopathy of head and neck Procedures US NECK SOFT TISSUE Frureanna, Darryn Shah, [employer] [address] [address] Specialty Diagnoses / Procedures Referred By Contac t Referred To Contact Diagnoses Lymphadenopathy Procedures XR FLUORO MODIFIED BARIUM SWALLOW-ENT ONLY CHG RADIOLOGIC EXAM ESOPHAGUS SINGLE CONTRAST STUDY Regan Neves, 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 [address] [place] [address] Referral ID Status Reason Start Date Expiration Date V isits Requested Visits Authorized [id number] Auth Not Needed 12/24/2022 01/18/2024 1 1 Specialty Diagnoses / Procedures Referred By Contac t Referred To Contact Diagnoses Lymphadenopathy EdinsonRegan veronica, [facility]-[employer] [address] [place] [address] Referral ID Status Reason Start Date Expiration Date V isits Requested Visits Authorized [id number] Pending Review 12/24/2022 01/18/2024 1 1 Specialty Diagnoses / Procedures Referred By Contac t Referred To Contact Diagnoses Lymphadenopathy Procedures CT NECK WITH CONTRAST WA CT NECK TISSUE CONTRAST EdinsonRegan, 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 [address] [place] [address] Referral ID Status Reason Start Date Expiration Date Visits Re quested Visits Authorized [id number] Closed 12/24/2022 01/18/2024 1 1 Referral ID Status Reason Start Date Expiration Date Visits Re quested Visits Authorized [id number] Closed 12/24/2022 01/18/2024 1 1 Specialty Diagnoses / Procedures Referred By Contac t Referred To Contact Diagnoses Thyroid nodule Procedures US THYROID WA US,HEAD/NECK TISSUES,REAL TIME Herve Jimenez MD [address] [place] [address] [facility] [address] [place] [address] Referral ID Status Reason Start Date Expiration Date V isits Requested Visits Authorized [id number] New Request 05/27/2023 06/20/2024 1 1 Specialty Diagnoses / Procedures Referred By Contac t Referred To Contact Diagnoses Thyroid nodule Procedures [facility] Andres Torres MD [address] [facility] [address] [place] [address] Referral ID Status Reason Start Date Expiration Date V isits Requested Visits Authorized [id number] New Request 09/22/2023 10/16/2024 1 1 Assessments [...] Activated Date Inactivated Comments 05/10/2021 7:16 AM Date Activated Date Inactivated Comments 03/11/2024 11:04 PM Date Activated Date Inactivated Comments 03/11/2024 11:04 PM 03/14/2024 7:15 PM Additional Source Comments INFORMATION SOURCE (unrecogn ized section and content) DATE CREATED AUTHOR 08/07/2020 [facility] DATE CREATED AUTHOR AUTHOR'S ORGANIZ ATION 05/28/2022 [facility] DATE CREATED AUTHOR AUTHOR'S ORGANIZ ATION 05/24/2023 [facility] DATE CREATED AUTHOR AUTHOR'S ORGANIZ ATION 09/26/2023 [facility] DATE CREATED AUTHOR AUTHOR'S ORGANIZ ATION 12/17/[address] [facility] DATE CREATED AUTHOR AUTHOR'S ORGANIZ ATION 03/18/2024 [facility] DATE CREATED AUTHOR AUTHOR'S ORGANIZ ATION 06/19/2024 [facility] DATE CREATED AUTHOR AUTHOR'S ORGANIZ ATION 08/21/2024 [facility] dical Specialists EPIC Reason for Visit [...] FOL W/CONT, CHEST Chepe Peraza MD [address] [place] [address] [facility] [address] [place] [address] Referral ID Status Reason Start Date Expiration Date V isits Requested Visits Authorized [id number] Auth Not Needed 05/29/2022 06/23/2023 1 1 [...] Self Emile Armas MD [address] [address] Referral ID Status Reason Start Date Expiration Date Visits Re quested Visits Authorized [id number] Closed 12/24/2022 01/18/2024 1 1 Specialty Diagnoses / Procedures Referred By Emanuel t Referred To Contact Diagnoses Lymphadenopathy Procedures CT NECK WITH CONTRAST WA CT NECK TISSUE CONTRAST Regan Neves APRN-SUPERVIS[employer] [address] [place] [address] Referral ID Status Reason Start Date Expiration Date Visits Re quested Visits Authorized [id number] Closed 12/24/2022 01/18/2024 1 1 Specialty Diagnoses / Procedures Referred By Emanuel rodriguez Referred To Contact Diagnoses Lymphadenopathy Procedures XR FLUORO MODIFIED BARIUM SWALLOW-ENT ONLY CHG RADIOLOGIC EXAM ESOPHAGUS SINGLE CONTRAST STUDY Regan Neves 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 [address] [place] [address] Referral ID Status Reason Start Date Expiration Date Visits Re quested Visits Authorized [id number] Closed 12/24/2022 01/18/2024 1 1 Specialty Diagnoses / Procedures Referred By Contac t Referred To Contact Diagnoses Thyroid nodule Procedures US THYROID WA US,HEAD/NECK TISSUES,REAL TIME Herve Jimenez MD [address] [place] [address] [facility] [address] [place] [address] Referral ID Status Reason Start Date Expiration Date V isits Requested Visits Authorized [id number] New Request 05/27/2023 06/20/2024 1 1 Reason Comments Thyroid Nodule Specialty Diagnoses / Procedures Referred By Contac t Referred To Contact Endocrinology, Diabetes & Metabolism Diagnoses Thyroid nodule Regan Neves, 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 [address] [place] [address] Referral ID Status Reason Start Date Expiration Date V isits Requested Visits Authorized [id number] Pending Review 06/04/2023 06/28/2024 1 1 Reason Comments Routine Visit Reason Comments Routine Visit High Risk Gestation Reason Comments Scheduled Induction Specialty Diagnoses / Procedures Referred By Contac t Referred To Contact Diagnoses Encounter for induction of labor Eulogio Garcia MD [address] [facility], [place] [address] Phone: tel: fax: Referral ID Status Reason Start Date Expiration Date Visits Re quested Visits Authorized [id number] 1 1 Reason Onset Date Comments Services 03/17/2024 Reason Comments Care Reason Comments High Risk Gestation Routine Visit Reason Comments Skin Check Care Teams (unrecognized sec tion and content) Bariatric Physician Relationship Specialty Start Date End Date Herve Jimenez MD [address] [place] [address] PCP - General Family Medicine 09/23/19 Chepe Peraza MD [address] [place] [address] [employer]visor [employer] 04/30/21 Bariatric Physician Relationship Specialty Start Date End Date Herve Jimenez MD [address] [place] [address] PCP - General Family Medicine 09/23/19 Chepe Peraza MD [address] [place] [address] [employer] 04/30/21 Bariatric Physician Relationship Specialty Start Date End Date Herve Jimenez MD [address] [place] [address] PCP - General Family Medicine 09/23/19 Chepe Peraza MD [address] [place] [address] [employer]visor [employer] 04/30/21 Bariatric Physician Relationship Specialty Start Date End Date Herve Jimenez MD [address] [place] [address] PCP - General Family Medicine 09/23/19 Chepe Peraza MD [address] [place] [address] Supervisor [employer] 04/30/21 Bariatric Physician Relationship Specialty Start Date End Date Herve Jimenez MD [address] [place] [address] PCP - General Family Medicine 09/23/19 Chepe Peraza MD [address] [place] [address] Super[employer] 04/30/21 Bariatric Physician Relationship Specialty Start Date End Date Herve Jimenez MD [address] [place] [address] PCP - General Family Medicine 09/23/19 Chepe Peraza MD [address] [place] [address] Supervisor [employer] 04/30/21 Bariatric Physician Relationship Specialty Start Date End Date Herve Jimenez MD [address] [place] [address] PCP - General Family Medicine 09/23/19 Chepe Peraza MD [address] [place] [address] [employer] 04/30/21 Bariatric Physician Relationship Specialty Start Date End Date Herve Jimenez MD [address] [place] [address] PCP - General Family Medicine 09/23/19 Chepe Peraza MD [address] [place] [address] [employer] 04/30/21 Bariatric Physician Relationship Specialty Start Date End Date Herve Jimenez MD [address] [place] [address] PCP - General Family Medicine 06/29/20 Bariatric Physician Relationship Specialty Start Date End Date Herve Jimenez MD [address] [place] [address] PCP - General Family Medicine 06/29/20 Bariatric Physician Relationship Specialty Start Date End Date Herve Jimenez MD [address] [place] [address] PCP - General Family Medicine 06/29/20 Scheduled Active and Recently Administ ered Medications (unrecognized section and content) Medication Order 03/12/2024 03/13/2024 03/14/2024 diphenhydrAMINE (BENADRYL) injection 25 mg (COMPLETED) 25 mg, intravenous, Once, On Fri03/12/24 at 1915, For 1 dose, Look-alike/sound-alike medication - verify indication for use. 1916 (Given - Provider: Kortney Moreno, MARIANNE) docusate sodium (COLACE) capsule 100 mg 100 mg, oral, 2 times daily, First dose on Fri03/13/24 at 0030, Look-alike/sound-alike medication - verify indication for use. 0030 (Not Given - Provider: Kortney Moreno RN - Reason: Patient/family refused)0932 (Given - Provider: Blanka Arizmendi RN)2142 (Given - Provider: Phylicia Calles, MARIANNE) 0859 (Given - Provider: Fanta Dorman RN)2100 (Due) nalbuphine (NUBAIN) injection 5 mg (COMPLETED) 5 mg, intravenous, Once, On Fri03/12/24 at 0215, For 1 dose, Look-alike/sound-alike medication - verify indication for use. 0226 (Given - Provider: Kortney Moreno RN) polyethylene glycol (GLYCOLAX) packet 17 g 17 g, oral, Daily, First dose on 03/13/24 at 0900, Look-alike/sound-alike medication - verify indication for use. Dissolve 1 packet (17 gm) in 8 ounces of water, juice, soda, coffee or tea. 0900 (Not Given - Provider: Blanka Arizmendi RN - Reason: Other - Comment: pt only wanted colace) 0859 (Given - Provider: Fanta Dorman RN) sodium chloride 0.9 % flush 3 mL 3 mL, intravenous, Every 8 hours, First dose on 03/13/24 at 0030, Flush peripheral line per protocol 0030 (Not Given - Provider: Kortney Moreno RN - Reason: IV infusing)0830 (Given - Provider: Blanka Arizmendi RN)1630 (Given - Provider: Blanka Arizmendi RN)2137 (Given - Provider: Phylicia Calles RN) 0030 (Canceled Entry - Provider: Phylicia Calles RN)0830 (Due)1630 (Due) Continuous Medication Order 03/12/2024 03/13/2024 03/14/2024 fentaNYL (PF) 2 mcg/mL - bupivacaine 0.1% in sodium chloride 0.9 % PIEB with PCEA (epidural) (CANCELED) epidural, Continuous, Starting on Fri03/12/24 at 0445, L&D Pre-Delivery, PIEB Trial, TTH only Pump programming and rate changes to be done by Anesthesia Prescriber ONLY. NO additional IM, IV, or oral opiates, sedatives, or hypnotics unless approved by Anesthesia. All additives must be preservative free. RN may discontinue epidural infusion post-procedure/delivery. RN may remove Epidural Catheter post-procedure / delivery unless otherwise specified FOR EPIDURAL USE ONLY Look-alike/sound-alike medication - verify indication for use., LOADING (Bolus) Dose: None, INTERMITTENT Bolus Dose: 10 mL, INTERMITTENT Bolus Dose Interval: 45 min, PCEA Dose: 5 mL, Lock out Interval: 10 min, One Hour Dose Limit: 40 mL 0429 (Given - Provider: Lizet Willis APRN-DIRECTOR SAFETY)0652 (Handoff - Provider: Kortney Moreno RN)1002 (Stop Bag - Provider: Serge Garcia RN)1043 (New Bag - Provider: Serge Garcia RN)1100 (Controlled Substance Wasted - Provider: Serge Garcia RN)1430 (Stop Bag - Provider: Serge Garcia RN)1435 (New Bag - Provider: Serge Garcia RN)1500 (Controlled Substance Wasted - Provider: Serge Garcia RN)1803 (Stop Bag - Provider: Serge Garcia RN)1807 (New Bag - Provider: Serge Garcia RN)1854 (Handoff - Provider: Serge Garcia RN)1900 (Controlled Substance Wasted - Provider: Serge Garcia RN)2100 (Stop Bag - Provider: Kortney Moreno RN)2200 (Controlled Substance Wasted - Provider: Kortney Moreno RN) lactated ringers infusion (CANCELED) 20 mL/hr, intravenous, Continuous, Starting on Fri03/12/24 at 0830, For 1 day 0800 (Restarted - Provider: Serge Garcia RN)0926 (Rate/Dose Change - Provider: Serge Garcia RN)1045 (New Bag - Provider: Serge Garcia RN)1119 (Rate/Dose Verify - Provider: Serge Garcia RN)1452 (Rate/Dose Verify - Provider: Serge Garcia RN)1611 (Rate/Dose Verify - Provider: Serge Garcia RN)1840 (Rate/Dose Verify - Provider: Serge Garcia RN) 0733 (Stop Bag - Provider: Blanka Arizmendi RN - Comment: not stopped by prior RN, not running at 0700 1..) oxytocin (PITOCIN) infusion 30 units/500 mL in lactated ringers (0.06 units/mL premix) (CANCELED) 1-20 mariela-units/min (1-20 mL/hr), intravenous, Titrated, Starting on Fri03/12/24 at 0215, L&D Pre-Delivery, Administer via programmable infusion pump. Starting rate is 1 milliunit/minute.Titrate by 1 milliunit/min every 30 minutes until 5 or less contractions occur in a 10 minute segment, averaged over a 30 minute period. Discontinue infusion for the following abnormal FHR tracings: -Category 3 FHR -Category 2 FHR with significant decelerations for greater than 50% of contractions, lasting longer than 60 minutes despite conservative therapeutic interventions -Minimal variability without accelerations that persist for 60 minutes despite conservative therapeutic interventions -Prolonged deceleration not resolved with conservative therapeutic interventions *Tachysystole is defined by the NICHD as more than five contractions in ten minutes, averaged over a 30-minute window., When Tachysystole is present while oxytocin is infusing, and heart rate (FHR) tracing is: Category 1: 1. Perform a maternal position change and give IV bolus of Lactated Ringers 500mL at a rate of 968 mLs/hour for a max of 1,000 mLs, observe for ten minutes. 2. If tachysystole continues, then decrease oxytocin rate by half, observe for 20 minutes, and notify provider. 3. If tachysystole does not resolve, discontinue oxytocin and notify provider. Category 2 with moderate variability and no significant decelerations: 1. Decrease oxytocin rate by half, change maternal position, give IV bolus of Lactated Ringers 500mL at a rate of 968 mLs/hour for a max of 1000 mLs, observe for 20 minutes, and notify provider. 2. If tachysystole does not resolve, discontinue oxytocin and notify provider. Category 2 with significant decelerations or Category 3: 1. Discontinue oxytocin, change maternal position, give IV bolus of Lactated Ringers 500mL at a rate of 968 mLs/hour for a max of 1000 mLs, administer oxygen via non-rebreather mask at 10L, and notify provider. If after at least a 30-minute period of observation, tachysystole resolves and pre-oxytocin checklist criteria is met, may restart oxytocin infusion at: Half of last infusing rate if oxytocin is off for less than 40 minutes. Beginning rate if oxytocin is off for greater than 40 minutes. [Maximum dose 20 milliunits/min unless specifically ordered otherwise by provider]. 1 mL/hour = 1 mariela-unit/min 0232 (New Bag - Provider: Kortney Moreno RN)0404 (Rate/Dose Change - Provider: Serge Garcia RN)0603 (Rate/Dose Change - Provider: Serge Garcia RN)0929 (Rate/Dose Change - Provider: Serge Garcia RN)0936 (Rate/Dose Verify - Provider: Serge Garcia RN)1119 (Rate/Dose Verify - Provider: Serge Garcia RN)1433 (Rate/Dose Change - Provider: Serge Garcia RN)1452 (Rate/Dose Verify - Provider: Serge Garcia RN)1611 (Rate/Dose Verify - Provider: Serge Garcia RN)1735 (Rate/Dose Change - Provider: Serge Garcia RN)1840 (Rate/Dose Verify - Provider: Serge Garcia RN) 0731 (Stop Bag - Provider: Blanka Arizmendi RN - Comment: not stopped by prior RN , not running when RN took over 1.4.25 0700) PRN Medication Order 03/12/2024 03/13/2024 03/14/2024 acetaminophen (TYLENOL EXTRA STRENGTH) tablet 1,000 mg 1,000 mg, oral, Every 8 hours PRN, moderate pain - pain scale 4-6, Starting on Fri03/12/24 at 2224 0454 (Given - Provider: Kortney Moreno RN)1440 (Given - Provider: Blanka Arizmendi RN)2142 (Given - Provider: Phylicia Calles RN) acetaminophen (TYLENOL) tablet 650 mg 650 mg, oral, Every 4 hours PRN, mild pain - pain scale 1-3, Starting on 03/13/24 at 0029 benzocaine-menthoL (DERMOPLAST) topical spray 1 Application 1 Application, topical, As needed, pain, perineum discomfort, Starting on 03/13/24 at 0029, May keep at bedside bisacodyL (DULCOLAX) suppository 10 mg 10 mg, rectal, Once as needed, constipation, no relief from docusate or senna/docusate, Starting on 03/13/24 at 0029, For 1 dose, Start 2nd day Look-alike/sound-alike medication - verify indication for use. carboprost (HEMABATE) injection 250 mcg 250 mcg, intramuscular, Once as needed, hemorrhage management, Starting on Fri03/12/24 at 2224, For 1 dose, Administer as directed by the provider for hemorrhage management. DO NOT ADMINISTER IV. Contraindicated if patient has a history of asthma or cardiovascular disease. famotidine (PF) (PEPCID) injection 20 mg (CANCELED) 20 mg, intravenous, Every 12 hours PRN, nausea vomiting, Starting on Fri03/12/24 at 1759, Dilute to total volume of 5 mL with 0.9% sod chl and administer IVP over 2 minutes. 1818 (Given - Provider: Serge Garcia, MARIANNE) hydrocortisone (ANUSOL-HC) 2.5 % rectal cream 1 Application 1 Application, rectal, As needed, hemorrhoids, Starting on 03/13/24 at 0029, May keep at bedside, Indications: hemorrhoids ibuprofen (MOTRIN) tablet 800 mg 800 mg, oral, Every 8 hours PRN, cramping, Starting on Fri03/12/24 at 2224, Look-alike/sound-alike medication - verify indication for use. Take/Give with food or milk. 0024 (Given - Provider: Kortney Moreno RN)0932 (Given - Provider: Blanka Arizmendi, MARIANNE)1754 (Given - Provider: Blanka Arizmendi, MARIANNE) 0859 (Given - Provider: Fanta Dorman, MARIANNE) methylergonovine (METHERGINE) injection 200 mcg 200 mcg, intramuscular, Once as needed, hemorrhage management, Starting on Fri03/12/24 at 2224, For 1 dose, Administer as directed by the provider for hemorrhage treatment. DO NOT ADMINISTER IV. Contraindicated if patient has a sensitivity or Systolic BP greater than 140 or Diastolic BP greater than 90. Look-alike/sound-alike medication - verify indication for use. miSOPROStoL (CYTOTEC) tablet 800 mcg 800 mcg, sublingual, Once as needed, hemorrhage management, Starting on Fri03/12/24 at 2224, For 1 dose, Administer as directed by the provider for hemorrhage management.Use only if Hypertensive and Asthmatic Look-alike/sound-alike medication - verify indication for use. modified lanolin (LANSINOH) 100 % cream cream 1 Application 1 Application, topical, As needed, sore/cracked nipples, Starting on 03/13/24 at 0029, May keep at bedside oxytocin (PITOCIN) bolus from bag solution 10 Units (COMPLETED) 10 Units, intravenous, Administer over 30 Minutes, Once as needed, post-delivery hemostasis, Starting on Fri03/12/24 at 0202, For 1 dose, , Administer via programmable pump with lactated ringers solution 2106 (Bolus from Bag - Provider: Kortney Moreno, MARIANNE) oxytocin (PITOCIN) infusion 30 units/500 mL in lactated ringers (0.06 units/mL premix)(Linked Group 1) 42 mariela-units/min (42 mL/hr), intravenous, Continuous PRN, for post-delivery hemostasis, Starting on Fri03/12/24 at 0202, Administer for 4 hours. Administer via programmable pump with lactated ringers solution 1 mL/hour = 1 mariela-unit/min 2136 (New Bag - Provider: Kortney Moreno RN) 131 (Stop Bag - Provider: Kortney Moreno RN) oxytocin (PITOCIN) injection 10 Units 10 Units, intramuscular, Once as needed, hemorrhage management, Starting on Fri03/12/24 at 2224, For 1 dose, Administer as directed by provider. sodium chloride 0.9 % flush 3 mL 3 mL, intravenous, As needed, line care, to maintain patency, Starting on 03/13/24 at 0029 tranexamic acid (CYKLOKAPRON) injection 1,000 mg 1,000 mg, intravenous, Administer over 10 Minutes, As needed, hemostasis/ hemorrhage management, Starting on Fri03/12/24 at 2224, For 2 doses, As directed by the provider for hemostasis/ hemorrhage management. Give slow IV push over 10 minutes, may repeat one time 30 minutes after initial dose. rod Cadet (PREPARATION H TOTABLE) pad 1 Application 1 Application, topical, As needed, hemorrhoids, Starting on 03/13/24 at 0029, May keep at bedside Linked Groups Order Group 1: oxytocin (PITOCIN) infusion 30 units/500 mL in lactated ringers (0.06 units/mL premix)Jump to med 42 mariela-units/min (42 mL/hr), intravenous, Continuous PRN, for post-delivery hemostasis, Starting on Fri03/12/24 at 0202, Administer for 4 hours. Administer via programmable pump with lactated ringers solution 1 mL/hour = 1 mariela-unit/min And lactated ringers infusion () 83 mL/hr, intravenous, Continuous PRN, post-delivery hemostasis, Starting on Fri03/12/24 at 0202, For 1 day, Administer for 4 hours. Administer with Oxytocin bolus and infusion FOR RECORDS PERTAINING TO PATIENTS WHO ARE [...] BE BASED ON THE PRIMARY CLINICAL RECORDS. [employer] [facility]. provides no warranty or guarantee of the accuracy or completeness of information in this document.
== END 2024-08-19 08:06 ==
LOC: LAB 08:05
PROVIDERS: Visit Provider Obstetrics & Gynecology
DX: N76.2 Acute vulvitis (principal)
CPT/HCPCS: 88305; 88312

== ENCOUNTER 2024-10-05 18:51 | Outpatient (REF) | payer OTHER, SELFPAY ==
--- OUTSIDE RECORDS SUMMARY | 2024-10-01 13:00 | XMS_ITS | Encounter Summary ---
Author Organization [employer] Address [id number] 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) Chepe Peraza MD [facility] [place] [address] Phone: tel: fax: Referral ID Status Reason Start Date Expiration Date Visits Re quested Visits Authorized [id number] Closed 06/18/2024 09/06/2024 1 1 Encounter Details Date Type Department Care Team (Latest Contact Info) Description 10/01/2024 1:00 PM EDT - 10/01/2024 11:59 PM EDT Hospital Encounter [facility]od[facility] - Echo [address] [place] [address] Dilatation of thoracic aorta Discharge Disposition: Home Social History Tobacco Use Types Packs/Day Years Used Date Smoking Tobacco: Never Smokeless Tobacco: Never Alcohol Use Standard Drinks/Week Comments Not Currently 0 (1 standard drink = 0.6 oz pur e alcohol) rarely Childcare Answer Date Recorded Childcare Unknown 08/17/2018 Employment Answer Date Recorded Employment Unknown 08/17/2018 Hunger Screening Answer Date Recorded Within the past 12 months we worried whether our food would run out before we got money to buy more. Never True 03/11/2024 Within the past 12 months th e food we bought just didn't last and we didn't have money to get more. Never True 03/11/2024 Purpose - Life Answer Date Recorded Purpose and direction in life Unknown Comments No Sex and Gender Information Value Date Recorded Sex Assigned at Not on file Legal Sex Female 4:30 PM EDT Gender Identity Not on file Sexual Orientation Not on file documented as of this encounter Last Filed Vital Signs Vital Sign Reading Time Taken Comments Blood Pressure - - Pulse - - Temperature - - Respiratory Rate - - Oxygen Saturation - - Inhaled Oxygen Concentration - - Weight 63 kg (139 lb) 10/01/2024 1:47 PM EDT Height 162.6 cm (5' 4 ) 10/01/2024 1:47 PM EDT Body Mass Index 23.86 10/01/2024 1:47 PM EDT documented in this encounter Medications at Time of Discharge acetaminophen (TYLENOL EXTRA STRENGTH) 500 mg tablet Take 2 tablets (1,000 mg total) by mouth every 8 (eight) hours as needed for pain. 30 tablet 03/14/2024 docusate sodium (COLACE) 100 mg capsule Take 1 capsule (100 mg total) by mouth in the morning and 1 capsule (100 mg total) before bedtime. 60 capsule 03/14/2024 famotidine (PEPCID) 10 mg tablet Take 1 tablet (10 mg total) by mouth daily as needed for heartburn. ibuprofen (MOTRIN) 800 mg tablet Take 1 tablet (800 mg total) by mouth every 8 (eight) hours as needed (cramping). 30 tablet 03/14/2024 no115/iron/folic acid ( 19 ORAL) Take by mouth. documented as of this encounter Plan of Treatment Not on file documented as of this encounter Procedures Procedure Name Priority Date/Time Associated Diagnosis Comments ECHO CONGENITAL LIMITED (PEDIATRIC) Routine 10/01/2024 1:48 PM EDT Dilatation of thoracic aorta documented in this encounter Results * (ABNORMAL) Echo congenital limited (Pediatric) (10/01/2024 1:48 PM EDT) [facility] Signature LVIDd 4.92 3.98 - 5.52 cm XCELERA LVIDs 3.23 2.36 - 3.57 cm XCELERA IVSd 0.73 0.54 - 1.08 cm XCELERA IVSs 1.06 0.80 - 1.46 cm XCELERA LVPWd 0.70 0.52 - 0.96 cm XCELERA LVPWs 1.16 1.02 - 1.67 cm XCELERA FS 34 28 - 44 % XCELERA ZIVSS -0.12 XCELERA ZLVPWD -0.04 XCELERA ZLVIDD 0.48 XCELERA ZLVIDS 0.84 XCELERA ZLVPWS -0.79 XCELERA ZIVSD -0.21 XCELERA AV annulus 2.25(A) 1.59 - 2.19 cm XCELERA ZAVA 1.88 XCELERA Aortic Sinus Valsalva 3.16 cm XCELERA Sinotubular Junction 2.88 1.63 - 2.52 cm XCELERA Ascending aorta 3.91 cm XCELERA STJZ 2.82 XC[employer]A AOAZ 5.95 XCELERA AOAZ 1.47 XCELERA AOSVZ 1.91 XCELERA Ao asc z-score 6.81 cm XCELERA ZSJ 2.63 XCELERA Anatomical Region Laterality Modality Chest N/A Ultrasound Narrative 10/01/2024 7:50 PM EDT Limited study performed Bicommisural bicuspid aortic valve without stenosis Severely dilated ascending aorta (AsAo: 3.91cm, Z score: 5.95) similiar to prior raw score Mildly dilated aortic root at the level of the sino-tubular junction Mild aortic valve insufficiency Trivial to mild mitral valve insufficiency Normal biventricular systolic function Results left on voicemail Left Ventricle Left ventricle size is normal. Normal left ventricular wall thickness. Normal left ventricular systolic function. Right Ventricle Right ventricle size is normal. Normal right ventricular wall thickness. Normal right ventricular systolic function. Left Atrium Left atrium size is normal. Right Atrium Right atrium size is normal. Mitral Valve Normal mitral valve. Trivial to mild mitral valve insufficiency, No mitral valve stenosis. Tricuspid Valve Normal tricuspid valve. Trivial tricuspid valve insufficiency. No tricuspid valve stenosis. Aortic Valve Functionally bicuspid aortic valve with a raphe fusion between the right and left cusps. Mild aortic valve insufficiency. No valvular aortic stenosis. Pulmonic Valve Normal pulmonary valve. Trivial pulmonary valve insufficiency. No pulmonary valve stenosis. Ascending Aorta Normal sized annulus. Mildly dilated aortic root. Severely dilated ascending aorta. Sinus of Valsalva is 3.16cm. STJ is 2.88cm. Ascending aorta is 3.91cm. Aortic annulus is 2.25cm. Aortic root z-score is 1.91. Aortic STJ z-score is 2.82. Ascending aorta z-score is 5.95. Aortic annulus z-score is 1.47. Pericardium No pericardial effusion. Atrial Septum Atrial septum intact. Segmental Anatomy Atrial situs solitus. Abdominal situs solitus. D-looped ventricles present. Normally positioned great arteries. Levocardia. Study Details Study quality was good. A 2D, color flow Doppler, spectral Doppler and congenital limited echocardiogram was performed. us Chepe Peraza MD CV ECHO ORDERABLES Final Res ult documented in this encounter Visit Diagnoses Diagnosis Dilatation of thoracic aorta Thoracic aneurysm without mention of rupture documented in this encounter Care Teams Community Mental Health Social Worker Relationship Specialty Start Date End Date Heather Will MD [address] [place] [address] PCP - General Family Medicine 06/29/20 documented as of this encounter
--- OUTSIDE RECORDS SUMMARY | 2024-10-05 14:00 | XMS_ITS | Encounter Summary ---
Author Organization [facility] Address [address] [place] [address] Care Team Providers Care Entertainment Director Name Role Phone Unavailable Primary Care Provider Unavailabl e Reason for Visit * Reason Comments Well Women Visit Encounter Details Date Type Department Care Team (Late st Contact Info) Description 10/05/2024 2:00 PM EDT Office Visit [facility] [address] [place] [phone] Sammy Peraza DO [address] [facility] [place] [address] Well woman exam with routine gynecological exam; Recurrent UTI Social History Tobacco Use Types Packs/Day Years Used Date Smoking Tobacco: Never Smokeless Tobacco: Never Alcohol Use Standard Drinks/Week Comments Not Currently 0 (1 standard drink = 0.6 oz pur e alcohol) Comments No Sex and Gender Information Value Date Recorded Sex Assigned at Not on file Legal Sex Female 6:37 PM EDT Gender Identity Not on file Sexual Orientation Not on file documented as of this encounter Last Filed Vital Signs Vital Sign Reading Time Taken Comments Blood Pressure 112/70 10/05/2024 2:26 PM EDT Pulse - - Temperature - - Respiratory Rate - - Oxygen Saturation - - Inhaled Oxygen Concentration - - Weight 63 kg (138 lb 12.8 oz) 10/05/2024 2:26 PM EDT Height - - Body Mass Index 23.82 05/27/2022 12:00 PM EDT documented in this encounter Progress Notes * Nataliya Srivastava LPN - 10/05/2024 2:00 PM EDT Reason for Appointment: Patient ID: Lisa Cardenas is a 29 y.o. female who presents for Well Women Visit Patient presents today for Annual Exam. MEDICATIONS Current Outpatient Medications Medication Instructions omega-3 1000 MG capsule capsule [place]-3 Fatty Acids (OMEGA 3 PO) Take by [...] Sister Diana Hanks Hyperlipidemia Father's Sister Diana Latonya Hypertension Father's Sister Diana Latonya Hypertension Father's Sister Lakisha O???Jhonny Hypertension Father's Brother Tucker Casey Seizures Brother [...] nursing note reviewed. Exam conducted with a grocery store associate present. Vitals: Estimated body mass index is 23.82 kg/m?? as calculated from the following: Height as of 05/27/22: 5' 4 . Weight as of this encounter: 138 lb 12.8 oz. BP: 112/70 No LMP recorded. ASSESSMENT & PLAN ICD-10-CM 1. Well woman exam with routine gynecological exam Z01.419 Pap Smear HPV DNA probe, amplified Orders Placed This Encounter Procedures HPV DNA probe, amplified Annual Wellness Exam: Patient presents today for routine annual exam. Patient states she has complaints of tissue coming out of vagina, granulation tissue - silver nitrate used and pt to return in 2 weeks for recheck . Patients vitals were reviewed and within normal limits. Growth and development is noted to be appropriate for age. No mental health concerns was expressed. Pap Smear: Speculum was inserted into the vagina and pap was obtained without difficulty. HPV testing was performed per age guideline. Patient was advised that pap results could take anywhere from 7 to 10 days to receive and our office will reach out to the patient with those once we have them. Patient can also view results via MyChart. I reinforced importance of condom use for STI prevention. Patient declined cultures to be performed with today's visit. Breast Exam: Upon examination, clinical breast exam was noted to be normal. Patient was counseled on breast self-awareness, including the importance of knowing what is normal for her own breasts and promptly reporting any changes such as new lumps, skin dimpling, nipple discharge, or pain. Screening mammogram recommended annually beginning at age 40 or earlier if risk factors are present. Discussed signs and symptoms of breast cancer and when to seek medical attention. Answered all patient questions. Contraceptive Counseling (if applicable): Patient is currently using no control at this time as a form of contraceptive. Patient does not desire control at this time. Follow Up: Patient is to return to our office in one year for annual exam unless needed otherwise. Documented by Nataliya Sriavstava LPN on behalf of: Sammy Peraza DO documented in this encounter Plan of Treatment Upcoming Encounters Date Type Department Care Team (Late st Contact Info) Description 10/25/2024 2:20 PM EDT Office Visit [facility] [address] [facility] [place] [address] Sammy Peraza DO [address] [place] [address] 06/07/2025 10:20 AM EDT Office Visit [facility] [address] [place] [address] Di Van, TAVIA [address] [place] [address] 10/10/2025 3:00 PM EDT Procedure Visit [facility] [address] [place] [address] Sammy Peraza DO [address] [place] [address] Scheduled Orders Name Type Priority Associated Diagnoses Orde r Schedule Pap Smear Pathology and Cytology Routine Well woman exam with routine gynecological exam Ordered: 10/05/2024 HPV DNA probe, amplified Microbiology Routine Well woman exam with routine gynecological exam Ordered: 10/05/2024 documented as of this encounter Visit Diagnoses Diagnosis Well woman exam with routine gynecological exam Routine gynecological examination Recurrent UTI Urinary tract infection, site not specified documented in this encounter
--- OUTSIDE RECORDS SUMMARY | 2024-10-05 18:55 | XMS_ITS | Encounter Summary ---
Author Organization [facility] Address [address] [facility] [place] [address] Care Team Providers Care Pantograph Ii Engraver Name Role Phone Unavailable Primary Care Provider Unavailabl e Encounter Details Date Type Department Care Team (Late Contact Info) Description 10/07/2023 Abstract [facility] [address] [place] [address] Ella Nicole PA [address] [place], [facility] Social History Tobacco Use Types Packs/Day Years Used Date Smoking Tobacco: Never Smokeless Tobacco: Never Alcohol Use Standard Drinks/Week Comments Not Currently 0 (1 standard drink = 0.6 oz pur e alcohol) Comments Yes Sex and Gender Information Value Date Recorded Sex Assigned at Not on file Legal Sex Female 6:37 PM EDT Gender Identity Not on file Sexual Orientation Not on file documented as of this encounter Plan of Treatment Upcoming Encounters Date Type Department Care Team (Late Contact Info) Description 10/25/2024 2:20 PM EDT Office Visit [facility] [address] [place] [address] Sammy Peraza DO [address] [facility] [address] [place] [id number] 06/07/2025 10:20 AM EDT Office Visit [facility] [address] [place] [address] Di Van, PA [address] [place] [address] 10/10/2025 3:00 PM EDT Procedure Visit [facility] [address] [place] [address] Sammy Peraza DO [address] [facility] [place] [address] documented as of this encounter Visit Diagnoses Not on filedocumented in this encounter
--- OUTSIDE RECORDS SUMMARY | 2024-10-05 18:55 | XMS_ITS | Encounter Summary ---
Author Organization [facility] Address [address] [facility] [place] [address] Care Team Providers Care Patient Relations Specialist Name Role Phone Unavailable Primary Care Provider Unavailabl e Encounter Details Date Type Department Care Team (Late Contact Info) Description 09/30/2023 Abstract [facility] [address] [place] [address] Sammy Peraza DO [facility] [place] [address] Social History Tobacco Use Types Packs/Day Years [...] EDT Office Visit [facility] [address] [place] [address] Sammy Peraza DO [address] [place], [place] [id number] 06/07/2025 10:20 AM EDT Office Visit [facility] [address] [place] [address] Di Van, PA [address] [facility] [address] [place] [address] 10/10/2025 3:00 PM EDT Procedure Visit [facility] JACKGYN [address] [facility] [place] [address] Sammy Peraza DO [address] [facility] [place] [address] documented as of this encounter Visit Diagnoses Not on filedocumented in this encounter
--- OUTSIDE RECORDS SUMMARY | 2024-10-05 18:55 | XMS_ITS | Encounter Summary ---
Author Organization [facility] Address [address] [place] [address] Care Team Providers Care Water Filtration Technician Name Role Phone Unavailable Primary Care Provider Unavailabl e Encounter Details Date Type Department Care Team (Late Contact Info) Description 10/07/2023 Orders Only [facility] [address] [place] [address] Clair Joseph MA [address] [facility] [place] [address] Social History Tobacco Use Types Packs/Day Years [...] EDT Office Visit [facility] [address] [place] [address] Sammy Peraza DO [address] [facility] [address] [place], [place] [id number] 06/07/2025 10:20 AM EDT Office Visit [facility] [address] [facility] [place] [phone] Di Van, PA [address] [place] [address] 10/10/2025 3:00 PM EDT Procedure Visit [facility] [address] [facility] [place] [address] Sammy Peraza DO [address] [facility] [address] [place], [place] [id number] documented as of this encounter Procedures Procedure Name Priority Date/Time Associated Diagnosis Comments PAP SMEAR Routine 09/30/2023 12:00 AM EDT documented in this encounter Results * Pap Smear (09/30/2023 12:00 AM EDT) Swab Cervical swab / Unknown us [facility] ORDERABLES Final Re sult EXTERNAL LAB documented in this encounter Visit Diagnoses Not on filedocumented in this encounter
--- OUTSIDE RECORDS SUMMARY | 2024-10-05 18:55 | XMS_ITS | Encounter Summary ---
Author Organization [facility] Address [address] [facility] [place] [address] Care Team Providers Care Senior Warehouse Clerk Name Role Phone Unavailable Primary Care Provider Unavailabl e Encounter Details Date Type Department Care Team (Late Contact Info) Description 10/01/2023 Abstract [facility] [address] [place] [address] Sammy Peraza DO [facility] [place] [address] Social History Tobacco Use Types Packs/Day Years [...] Visit [facility] [address] [place] [address] Sammy Peraza DO [address] [place] [place], [place] [id number] 06/07/2025 10:20 AM EDT Office Visit [facility] [address] [place] [address] Di Van, PA [address] [facility] [address] [place] [address] 10/10/2025 3:00 PM EDT Procedure Visit [facility] JACKGYN [address] [facility] [place] [address] Sammy Peraza DO [address] [facility] [place] [address] documented as of this encounter Visit Diagnoses Not on filedocumented in this encounter
--- OUTSIDE RECORDS SUMMARY | 2024-10-05 18:55 | XMS_ITS | Encounter Summary ---
Author Organization [facility] Address [address] [facility] [place] [address] Care Team Providers Care Optical Laboratory Manager Name Role Phone Unavailable Primary Care Provider Unavailabl e Encounter Details Date Type Department Care Team (Late Contact Info) Description 10/03/2023 Abstract [facility] [address] [facility] [place] [address] Brittani Smith LPN [address] [place] [id number] Social History Tobacco Use Types Packs/Day Years [...] EDT Office Visit [facility] [address] [facility] [place] [address] Sammy Peraza DO [address] [facility] [address] [place] [id number] 06/07/2025 10:20 AM EDT Office Visit [facility] [address] [place] [address] Di Van, PA [address] [place] [address] 10/10/2025 3:00 PM EDT Procedure Visit [facility] JACKGYN [address] [facility] [place] [address] Sammy Peraza DO [address] [facility] [place] [address] documented as of this encounter Visit Diagnoses Not on filedocumented in this encounter
--- OUTSIDE RECORDS SUMMARY | 2024-10-05 18:55 | XMS_ITS | Encounter Summary ---
Author Organization [facility] Address [address] [facility] [place] [address] Care Team Providers Care Huller Operator Name Role Phone Unavailable Primary Care Provider Unavailabl e Encounter Details Date Type Department Care Team (Late Contact Info) Description 10/21/2023 Abstract [facility] [address] [facility] [place] [address] Brittani Smith LPN [address] [place] [id number] Social History Tobacco Use Types Packs/Day Years [...] EDT Office Visit [facility] [address] [facility] [place] [address] Sammy Peraza DO [address] [facility] [address] [place] [phone] 06/07/2025 10:20 AM EDT Office Visit [facility] [address] [place] [address] Di Van, PA [address] [place] [address] 10/10/2025 3:00 PM EDT Procedure Visit [facility] JACKGYN [address] [facility] [place] [address] Sammy Peraza DO [address] [facility] [place] [address] documented as of this encounter Visit Diagnoses Not on filedocumented in this encounter
--- OUTSIDE RECORDS SUMMARY | 2024-10-05 18:56 | XMS_ITS | Encounter Summary ---
Author Organization [facility] Address [address] [facility] [place] [address] Care Team Providers Care Cooker Syrup Name Role Phone Unavailable Primary Care Provider Unavailabl e Encounter Details Date Type Department Care Team (Late Contact Info) Description 02/11/2024 Abstract [facility] [address] [place] [address] Sammy Peraza DO [facility] [place] [address] Social History Tobacco Use Types Packs/Day Years [...] Visit [facility] [address] [place] [address] Sammy Peraza DO [address] [place], [place] [address] 06/07/2025 10:20 AM EDT Office Visit [facility] [address] [place] [address] Di Van, PA [address] [facility] [address] [place] [address] 10/10/2025 3:00 PM EDT Procedure Visit [facility] JACKGYN [address] [facility] [place] [address] Sammy Peraza DO [address] [facility] [place] [address] documented as of this encounter Visit Diagnoses Not on filedocumented in this encounter
--- OUTSIDE RECORDS SUMMARY | 2024-10-05 18:56 | XMS_ITS | Encounter Summary ---
Author Organization [email or web address] Address [id number] [place] [address] Care Team Providers Care Pulping Machine Operator Name Role Phone Heather Will MD Primary Care Provider + Encounter Details Date Type Department Care Team (Late st Contact Info) Description 01/28/2024 Telephone [facility] Services - Women's Services [address] [place] [address] Apple Trujillo, RN Social History Tobacco Use Types Packs/Day Years [...] got money to buy more. Never True 01/13/2024 Within the past 12 months th e food we bought just didn't last and we didn't have money to get more. Never True 01/13/2024 Purpose - Life Answer Date Recorded Purpose and direction in life Unknown Comments Yes Sex and Gender Information Value Date Recorded Sex Assigned at Not on file Legal Sex Female 4:30 PM EDT Gender Identity Not on file Sexual Orientation Not on file documented as of this encounter Miscellaneous Notes * Telephone Encounter - Apple Trujillo RN - 01/28/2024 1:02 PM EST Ivanna from Dr Peraza's office returned your call requesting labs and a pap. She wanted to make sure you received everything. I did not see anything in media or any telephone messages that the office was called. Please return her call at [phone] documented in this encounter Plan of Treatment Not on file documented as of this encounter Visit Diagnoses Not on filedocumented in this encounter Care Teams Pulping Machine Operator Relationship Specialty Start Date End Date Heather Will MD [address] [place] [address] PCP - General Family Medicine 06/29/20 documented as of this encounter
--- OUTSIDE RECORDS SUMMARY | 2024-10-05 18:56 | XMS_ITS | Encounter Summary ---
Author Organization [facility] enter Address [address] [place] [address] Care Team Providers Care Engineering Mechanic Name Role Phone Heather Will MD Primary Care Provider [phone] Chepe Peraza MD Unavailable [phone] Reason for Visit * Reason Onset Date Comments Surgery 04/05/2019 Encounter Details Date Type Department Care Team (Late st Contact Info) Description 04/05/2019 Telephone Division of Surgical Oncology [address] [place] [address] [place] [address] Brook Denney MD [address] [place] [address] [place] [address] Surgery Social History Tobacco Use Types Packs/Day Years Used Date Smoking Tobacco: Never Smokeless Tobacco: Never Alcohol Use Standard Drinks/Week Comments Yes 0 (1 standard drink = 0.6 oz pur e alcohol) AUDIT-C Answer Date Recorded Frequency of Alcohol Consumption Monthly or less 04/21/2018 Average Number of Drinks 1 or 2 019 Frequency of Binge Drinking Never 04/10 Comments No Sex and Gender Information Value Date Recorded Sex Assigned at Female 09/22/2023 1:08 PM EDT Legal Sex Female 8:34 AM EST Gender Identity Female 03/16/2017 1:34 PM EST Sexual Orientation Not on file documented as of this encounter Functional Status documented as of this encounter Miscellaneous Notes * Telephone Encounter - Emigdio Ambrizchi - 04/05/2019 10:21 AM EST Return for OR on 04/06. April 05, 2019 Dear Ms. Peña, We have scheduled your surgery with Dr. Brook Denney. Date of Surgery: Saturday, April 06, 2019 Arrival time: 2:30 PM Surgery Time: 4:30 PM Location: [facility], [address] [place] [address] Post-Op visit with Dr. Denney: TBD at discharge. This information is current as of the date listed above and is subject to change. Please remember to follow any prep instructions prior to your surgery. Feel free to contact us with any questions or concerns. Thank you, Emigdio Ross Patient Journeyman Operator Assistant Division of Surgical Oncology documented in this encounter Plan of Treatment Not on file documented as of this encounter Visit Diagnoses Not on filedocumented in this encounter Additional Health Concerns Infection Onset Date Last Indicated Resolved Time COVID-19 Suspected 03/24/2020 03/24/2020 1 6:57 PM EST COVID-19 Suspected 05/07/2021 05/07/2021 2 10:30 PM EST COVID-19 Suspected 05/22/2021 05/22/2021 2 8:06 AM EDT documented as of this encounter Care Teams Engineering Mechanic Relationship Specialty Start Date End Date Heather Will MD [address] [place] [address] PCP - General Family Medicine 09/23/19 Chepe Peraza MD [address] [place] [address] Inspector Paper Products Pediatrics 04/30/21 documented as of this encounter
--- OUTSIDE RECORDS SUMMARY | 2024-10-05 18:56 | XMS_ITS | Encounter Summary ---
Author Organization [facility] Address [address] [facility] [place] [address] Care Team Providers Care Livestock Farm Workers Name Role Phone Unavailable Primary Care Provider Unavailabl e Encounter Details Date Type Department Care Team (Late Contact Info) Description 05/05/2024 Abstract [facility] [place] [facility] [address] [place] [address] Sammy Peraza DO [facility] [place] [address] Social History Tobacco Use Types Packs/Day Years [...] Visit [facility] [place] [facility] [address] [place] [address] Sammy Pearza DO [address] [place], [place] [id number] 06/07/2025 10:20 AM EDT Office Visit [facility] [address] [place] [address] Di Van, [place] [address] [facility] [address] [place] [address] 10/10/2025 3:00 PM EDT Procedure Visit [facility] [place] JACKGYN [address] [facility] [place] [address] Sammy Peraza DO [address] [facility] [place] [address] documented as of this encounter Visit Diagnoses Not on filedocumented in this encounter
--- OUTSIDE RECORDS SUMMARY | 2024-10-05 18:56 | XMS_ITS | Clinical Summary ---
Author Organization [facility] Address [address] [place] [phone] Care Team Providers Care Combination Building Inspector Name Role Phone Heather Will MD Primary Care Provider [phone] Chepe Peraza MD Unavailable [phone] Allergies Active Allergy Reactions Criticality Noted Date Comments Amoxicillin Rash 03/16/2017 As a child Clarithromycin Rash 03/16/2017 Ok to take azithromycin Clindamycin 03/16/2017 Able to take IV- just had throat ulceration when swallowed pill Doxycycline 03/16/2017 Ulcerative esophagus Medications norgestimate-ethiny l estradiol (Sprintec 28) 0.25-35 MG-MCG tablet Take 1 tablet by mouth at bedtime. Active ondansetron 4 MG Tab Dispersible tablet Dissolve 1 tablet by mouth every 8 hours as needed for Nausea / Vomiting. 15 tablet 05/10/2021 11:32 AM EST 2 Active nystatin 853385 UNIT/ML oral suspension Swish and swallow 10 mL 4 times daily. 280 mL 2 Active lidocaine viscous 80 mL, diphenhydrAMINE (BENADRYL) 80 mL, alum/mag hydrox.-simethicone 80 mL mouthwash Swish and swallow 15 mL every 6 hours as needed. 1 Bottle 2 Active oxyCODONE 5 MG tabletIndications:P ostoperative pain Take 1 tablet by mouth every 4 hours as needed for up to 7 days. 20 tablet 05/22/2021 10:03 AM EDT 2 Active lidocaine viscous-Alum & Mag Rjjrvdbog-Cifvmw-sb phenhydrAMINE oral mouthwash Swish and swallow 15mL by mouth every 6 hours as needed. 240 mL 05/22/2021 10:03 AM EDT 2 Active Vit-DSS-Fe Fum-FA ( 19) tablet Take 1 tablet by mouth daily. 90 tablet 3 3 Active Active Problems Problem Noted Date Diagnosed Date Thyroid nodule 11/20/2022 Asthma 11/20/2022 Chronic tonsillitis 03/19/2021 Overview (03/19/2021): Added automatically from request for surgery [id number] Chronic cholecystitis 04/05/2019 Overview (04/05/2019): Added automatically from request for surgery [id number] Family History Medical History Relation Name Comments Bleeding or Clotting Problems Brother 1 Other - Specify Brother 1 Thrombocytop hilia Seizures/Epilepsy Brother 1 Bleeding or Clotting Problems Brother 2 Bleeding or Clotting Problems Father Other - Specify Father Thrombocytop hilia Prostate Cancer Father Heart Defect Maternal Aunt Unknown left s ided lesion, recent valve replacement Heart Defect Maternal Uncle Mitral valve prolapse Heart Defect Mother Mitral Valve Po rlapse Other - Specify Mother Osteopenia Bleeding or Clotting Problems Paternal Grandmother Relation Name Status Comments Brother 1 Brother 2 Father Alive Maternal Aunt Alive Maternal Uncle Alive Mother Alive Paternal Grandmother Social History Tobacco Use Types Packs/Day Years Used Date Smoking Tobacco: Never Smokeless Tobacco: Never Tobacco Cessation:Counseling Given: Not Answered Alcohol Use Standard Drinks/Week Comments Yes 0 (1 standard drink = 0.6 oz pur e alcohol) 1-2 drinks per month AUDIT-C Answer Date Recorded Q1: How often do you have a drink containing alc ohol? Monthly or less 04/15/2020 Q2: How many drinks containi ng alcohol do you have on a typical day when you are drinking? 1 or 2 04/15/2020 Q3: How often do you have si x or more drinks on one occasion? Never 04/15/2020 Depression Answer Date Recorded PHQ-9 Total Score (Interpret ation of Total Score 1-4 = Minimal depression; 5-9 = Mild depression; 10-14 = Moderate depression; 15-19 = Moderately severe depression) 0 12/24/2022 Comments No Sex and Gender Information Value Date Recorded Sex Assigned at Female 09/22/2023 1:08 PM EDT Legal Sex Female 8:34 AM EST Gender Identity Female 03/16/2017 1:34 PM EST Sexual Orientation Not on file Last Filed Vital Signs Vital Sign Reading Time Taken Comments Blood Pressure 114/62 09/22/2023 1:37 PM EDT Pulse 71 12/24/2022 4:30 PM EDT Temperature 36.3 C (97.3 F) 09/22/2023 1:37 PM EDT Respiratory Rate 16 12/24/2022 11:37 AM EDT Oxygen Saturation 99% 12/24/2022 11:37 AM EDT Inhaled Oxygen Concentration - - Weight 67.1 kg (148 lb) 09/22/2023 1:37 PM EDT Height 162.6 cm (5' 4 ) 09/22/2023 1:37 PM EDT Body Mass Index 25.4 09/22/2023 1:37 PM EDT Plan of Treatment Health Maintenance Due Date Last Done Comments HEPATITIS C VIRUS SCREENING 1994 TETANUS 03/13/2005 03/13/1995, 1994, 1994, Additional history exists HIV SCREENING DISCUSSION 2009 PNEUMOCOCCAL VACCINE SERIES (1 of 2 - PCV) 2013 TDAP (ADULT) 2013 CERVICAL CANCER SCREENING DISCUSSION 2015 COVID-19 VACCINE ( season) 2023 INFLUENZA VACCINE (#1) 2024 , 01/08/2016, 01/02/2015, Additional history exists HPV VACCINE Aged Out No longer eligi ble based on patient's age to complete this topic Insurance [employer] Advance Directives For more information, please contact: [phone] (7:30 AM - 6PM [facility], Friday-Friday) * Full Code (Latest Code Status on File) Date Activated Date Inactivated Comments 05/10/2021 7:16 AM Care Teams Combination Building Inspector Relationship Specialty Start Date End Date Heather Will MD [address] [place] [phone] PCP - General Family Medicine 09/23/19 Chepe Peraza MD [address] [place] [phone] Baling Machine Tender Pediatrics 04/30/21
--- OUTSIDE RECORDS SUMMARY | 2024-10-05 18:56 | XMS_ITS | Encounter Summary ---
Author Organization [facility] Address [address] [place] [address] Care Team Providers Care Nuclear Operations Specialist Name Role Phone Unavailable Primary Care Provider Unavailabl e Encounter Details Date Type Department Care Team (Late st Contact Info) Description 01/27/2024 Clinisync Result Encounter [facility] External Department Unsolicited Ricky Peraza DO [address] [place] [address] Social History Tobacco Use Types Packs/Day Years [...] 10/25/2024 2:20 PM EDT Office Visit [facility] [place] OBSAMANTHA [address] [place] [address] Ricky Peraza DO [address] [place] [address] 06/07/2025 10:20 AM EDT Office Visit [facility] [address] [facility] [facility] [address] [place] [address] Di Van, PA [address] [place] [address] 10/10/2025 3:00 PM EDT Procedure Visit [facility] [place] [facility] [address] [facility] [place] [phone] Ricky Peraza DO [address] [facility] [place] [address] documented as of this encounter Procedures Procedure Name Priority Date/Time Associated Diagnosis Comments US OB CERVICAL LENGTH 01/27/2024 4:51 AM EST documented in this encounter Results * US OB CERVICAL LENGTH (01/27/2024 4:51 AM EST) Anatomical Region Laterality Modality Other 01/27/2024 4:51 AM EST Narrative 01/27/2024 4:54 [place] [address] Ultrasound Report Signed Patient: ADRY LEVY MR#: [id number] : 1995 Acct:[id number] Age/Sex: 28 / F ADM Date: 01/26/24 Loc: US Attending Dr: Ricky Peraza D.O. Ordering Physician: Ricky Peraza D.O. Date of Service: 01/26/24 Procedure(s): US OB cervical length Accession Number(s): [id number] cc: Ricky Peraza D.O.; Physician,Non-Staff M.DSara The [address] [id number] Patient Name: ADRY LEVY MRN: [id number] date: 1995 Sex: F Assigned Patient Location: [facility] Current Patient Location: Accession/Order Number: [id number] Exam Date: 01/26/2024 10:43 Report Date: 01/27/2024 04:51 At the request of: RICKY PERAZA Procedure: US OB cervical length EXAMINATION: US OB BPP w non-stress, US OB cervical length HISTORY:Hypothyroid in COMPARISON: Ultrasound OB biophysical 01/19/2024 TECHNIQUE: Ultrasound biophysical profile was performed in the radiology department. BREATHING MOVEMENTS: 2 GROSS BODY MOVEMENTS: 2 TONE: 2 QUALITATIVE AMNIOTIC FLUID VOLUME: 2 PRESENTATION: Cephalic HEART RATE: 133 bpm AMNIOTIC FLUID VOLUME: 22.01 cm GESTATIONAL AGE: 34 weeks 0 days US/US OB cervical length IMPRESSION: 1. Total biophysical profile score: 8 2. Closed cervix 4.9 cm in length. Electronically authenticated by: FEDE EDWARDS Date: 01/27/2024 04:51 Dictated By: Fede Edwards M.D. Signed By: 01/27/24453 DD/ 0 TD/TT: Doughnut Machine Operator Helper: Procedure Note Radiology, Radiologist, MD - 01/27/2024 [place] [address] Ultrasound Report Signed Patient: ADRY LEVY R#: [id number] : 1995Acct:[id number] Age/Sex: 28 / FADM Date: 01/26/24 Loc: US Attending Dr: Ricky Peraza D.O. Ordering Physician: Ricky Peraza D.O. Date of Service: 01/26/24 Procedure(s): US OB cervical length Accession Number(s): [id number] cc: Ricky Peraza D.O.; Physician,Non-Staff MTod The [place] [id number] Patient Name: ADRY LEVY MRN: [id number] date: 1995 Sex: F Assigned Patient Location: [facility] Current Patient Location: Accession/Order Number: [id number] Exam Date: 01/26/2024 10:43 Report Date: 01/27/2024 04:51 At the request of: RICKY PERAZA Procedure: US OB cervical length EXAMINATION: US OB BPP w non-stress, US OB cervical length HISTORY:Hypothyroid in COMPARISON: Ultrasound OB biophysical 01/19/2024 TECHNIQUE: Ultrasound biophysical profile was performed in the radiology department. BREATHING MOVEMENTS: 2 GROSS BODY MOVEMENTS: 2 TONE: 2 QUALITATIVE AMNIOTIC FLUID VOLUME: 2 PRESENTATION: Cephalic HEART RATE: 133 bpm AMNIOTIC FLUID VOLUME: 22.01 cm GESTATIONAL AGE: 34 weeks 0 days US/US OB cervical length IMPRESSION: 1. Total biophysical profile score: 8 2. Closed cervix 4.9 cm in length. Electronically authenticated by: FEDE EDWARDS Date: 01/27/2024 04:51 Dictated By: Fede Edwards M.D. Signed By:01/27/24 0454 DD/ 0451 TD/TT: Doughnut Machine Operator Helper: us Ricky Stu DO [facility] Final Result documented in this encounter Visit Diagnoses Not on filedocumented in this encounter
--- OUTSIDE RECORDS SUMMARY | 2024-10-05 18:56 | XMS_ITS | Encounter Summary ---
Author Organization [facility] Address [address] [place] [address] Care Team Providers Care Jig Grinder Name Role Phone Heather Will MD Primary Care Provider [phone] Chepe Peraza MD Unavailable [phone] Reason for Visit * Reason Onset Date Comments Paperwork 04/21/2019 Encounter Details Date Type Department Care Team (Late st Contact Info) Description 04/21/2019 Telephone Division of Surgical Oncology [address] [place] [address] [place] [address] Brook Denney MD [address] [place] [address] [place] [address] Paperwork Social History Tobacco Use Types Packs/Day Years [...] encounter Miscellaneous Notes * Telephone Encounter - Ellen Llanos RN - 04/21/2019 1:17 PM EST Patient brought it return to work form to her post op visit with Dr. Denney. [facility] Release to Return to Work Form completed, signed and faxed to Iva Jackson at [facility] [employer] at [phone]. Fax confirmation received. Paperwork placed in Martina folder to be scanned into chart. Copy of paperwork given to patient. documented in this encounter Plan of Treatment [...] documented as of this encounter Care Teams Jig Grinder Relationship Specialty Start Date End Date Heather Will MD [address] [address] PCP - General Family Medicine 09/23/19 Chepe Peraza MD [address] [place] [address] Assembly Line Robot Operator Pediatrics 04/30/21 documented as of this encounter
--- OUTSIDE RECORDS SUMMARY | 2024-10-05 18:56 | XMS_ITS | Encounter Summary ---
Author Organization [facility] Address [id number] [place] [address] Care Team Providers Care Disciplinary Hearing Officer Name Role Phone Heather Will MD Primary Care Provider + Encounter Details Date Type Department Care Team (Late st Contact Info) Description 01/28/[address] [facility] [address] [place] [phone] Venecia Stephens, RN Social History Tobacco Use Types Packs/Day [...] Procedure Name Priority Date/Time Associated Diagnosis Comments HEMOGLOBIN AND HEMATOCRIT, BLOOD Routine 11/17/2023 GLUCOSE TOLERANCE, 1 HOUR Routine 11/17/2023 PLATELET COUNT Routine 11/17/2023 CYTOLOGY Routine 09/30/2023 documented in this encounter Results * Hemoglobin and hematocrit, blood (11/17/2023) Hemoglobin 11.5 MANUALLY TRANSCRIBED RESULTS Hematocrit 34.3 MANUALLY TRANSCRIBED RESULTS us Sammy R Stu DO LAB BLOOD ORDERABLES Final Resu lt Performing Organization Address City/[facility]/ZIP Co de Phone Number MANUALLY TRANSCRIBED RESULTS * Glucose tolerance, 1 hour (11/17/2023) Glucose Tolerance Test 1 Hour 103 MANUALLY TRANSCRIBED RESULTS us Sammy R Stu DO LAB BLOOD ORDERABLES Final Resu lt MANUALLY TRANSCRIBED RESULTS * Platelet count (11/17/2023) Platelets 181 MANUALLY TRANSCRIBED RESULTS us Sammy R Stu DO LAB BLOOD ORDERABLES Final Resu lt Performing Organization Address [facility]/ZIP Co de Phone Number MANUALLY TRANSCRIBED RESULTS * Cytology (09/30/2023) Thin Prep Pap Smear - Screening WNL MANUALLY TRANSCRIBED RESULTS us Sammy R Stu DO PATHOLOGY/CYTOLOGY ORDERABLES F inal Result MANUALLY TRANSCRIBED RESULTS documented in this encounter Visit Diagnoses Not on filedocumented in this encounter Care Teams Disciplinary Hearing Officer Relationship Specialty Start Date End Date Heather Will MD [address] [place] [phone] PCP - General Family Medicine 06/29/20 documented as of this encounter
--- OUTSIDE RECORDS SUMMARY | 2024-10-05 18:56 | XMS_ITS | Encounter Summary ---
Author Organization [facility] Address [address] [place] [address] Care Team Providers Care Train Driver Name Role Phone Unavailable Primary Care Provider Unavailabl e Encounter Details Date Type Department Care Team (Late st Contact Info) Description 01/12/2024 Clinisync Result Encounter [facility] External Department Unsolicited Ricky Peraza DO [address] [place] [address] Social History Tobacco Use Types Packs/Day Years [...] Visit [facility] [place] OBSAMANTHA [address] [place] [address] Ricky Peraza DO [address] [place] [address] 06/07/2025 10:20 AM EDT Office Visit [facility] [address] [place] [address] Di Van, [place] [address] [place] [address] 10/10/2025 3:00 PM EDT Procedure Visit [facility] [place] [facility] [address] [facility] [place] [phone] Ricky Peraza DO [address] [facility] [place] [address] documented as of this encounter Procedures Procedure Name Priority Date/Time Associated Diagnosis Comments US OB BPP W NON-STRESS 01/12/2024 11:01 AM EST documented in this encounter Results * US OB BPP W NON-STRESS (01/12/2024 11:01 AM EST) Anatomical Region Laterality Modality Other 01/12/2024 11:0 1 AM EST Narrative 01/12/2024 11:04 [place] [address] Ultrasound Report Signed Patient: ADRY LEVY MR#: [id number] : 1995 Acct:[id number] Age/Sex: 28 / F ADM Date: 01/12/24 Loc: [facility] [address]: Ricky Peraza D.O. Ordering Physician: Rikcy Peraza D.O. Date of Service: 01/12/24 Procedure(s): US OB BPP w non-stress Accession Number(s): [id number] cc: Ricky Peraza D.O.; Physician,Non-Staff M.New The [address] [address] Patient Name: ADRY LEVY MRN: [id number] date: 1995 Sex: F Assigned Patient Location: [facility] Current Patient Location: [facility] Accession/Order Number: [id number] Exam Date: 01/12/2024 10:02 Report Date: 01/12/2024 11:01 At the request of: RICKY PERAZA Procedure: US OB BPP w non-stress EXAMINATION: US OB BPP w non-stress HISTORY: Aortic stenosis of mother during O99.419 COMPARISON: No relevant comparison available. TECHNIQUE: Ultrasound biophysical profile was performed in the radiology department. non-reactive stress testing was performed by nursing staff in the birthing center. FINDINGS: BREATHING MOVEMENTS: 2 GROSS BODY MOVEMENTS: 2 TONE: 2 QUALITATIVE AMNIOTIC FLUID VOLUME: 2 PRESENTATION: CEPHALIC HEART RATE: 126.17 bpm AMNIOTIC FLUID VOLUME: 21 cm GESTATIONAL AGE: 32 weeks 0 days US/US OB BPP w non-stress IMPRESSION: Total biophysical profile score: 8 Electronically authenticated by: EULOGIO BARCLAY Date: 01/12/2024 11:01 Dictated By: Eulogio Barclay M.D. Signed By: 01/12/244 DD/ 00 TD/TT: Ear Specialist: Procedure Note Radiology, Radiologist, MD - 01/12/2024 [place] [address] Ultrasound Report Signed Patient: ADRY LEVY R#: [id number] : 1995Acct:[id number] Age/Sex: 28 / FADM Date: 01/12/24 Loc: [facility] 250-[address]: Ricky Peraza D.O. Ordering Physician: Ricky Peraza D.O. Date of Service: 01/12/24 Procedure(s): US OB BPP w non-stress Accession Number(s): [id number] cc: Ricky Peraza D.O.; Physician,Non-Staff [facility] The [address] [address] Patient Name: ADRY LEVY MRN: [id number] date: 1995 Sex: F Assigned Patient Location: [facility] Current Patient Location: [facility] Accession/Order Number: [id number] Exam Date: 01/12/2024 10:02 Report Date: 01/12/2024 11:01 At the request of: RICKY PERAZA Procedure: US OB BPP w non-stress EXAMINATION: US OB BPP w non-stress HISTORY: Aortic stenosis of mother during O99.419 COMPARISON: No relevant comparison available. TECHNIQUE: Ultrasound biophysical profile was performed in the radiology department. non-reactive stress testing was performed by nursingstaff in the birthing center. FINDINGS: BREATHING MOVEMENTS: 2 GROSS BODY MOVEMENTS: 2 TONE: 2 QUALITATIVE AMNIOTIC FLUID VOLUME: 2 PRESENTATION: CEPHALIC HEART RATE: 126.17 bpm AMNIOTIC FLUID VOLUME: 21 cm GESTATIONAL AGE: 32 weeks 0 days US/US OB BPP w non-stress IMPRESSION: Total biophysical profile score: 8 Electronically authenticated by: EULOGIO BARCLAY Date: 01/12/2024 11:01 Dictated By: Eulogio Barclay M.D. Signed By:01/12/24 1104 DD/ 1101 TD/TT: Ear Specialist: us Ricky Peraza DO [facility] Final Result documented in this encounter Visit Diagnoses Not on filedocumented in this encounter
--- OUTSIDE RECORDS SUMMARY | 2024-10-05 18:56 | XMS_ITS | Continuity of Care Document ---
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 Name Role Phone Unavailable Primary Care Provider Unavailabl e Encounters Date Type Department Care Team Description 10/05/2024 Bamboo flowsheet [facility] [address] [place] [address] Ricky Peraza, 10/05/2024 2:00 PM EDT Office Visit [facility] [address] [place] [address] Ricky Peraza DO Well woman exam with routine gynecological exam; Recurrent UTI 08/19/2024 Abstract [facility] [address] [place] [address] Ricky Peraza, 08/19/2024 Bamboo flowsheet [facility] [address] [place] [address] Ricky Peraza DO 08/19/2024 10:00 AM EDT Office Visit [facility] [address] [place] [address] Ricky Peraza DO Encounter for visit ([facility]); Dyspareunia in female 06/10/2024 Abstract [facility] FONTENOTN [address] [place] [address] Ricky Peraza, DO 06/10/2024 Abstract [facility] JACKGYN [address] [place] [address] Ricky Peraza, DO 06/07/2024 Bamboo flowsheet [facility] [address] [place] [address] Di Van PA 06/07/2024 Travel 06/07/2024 10:20 AM EDT Office Visit [facility] [address] [place] [address] Di Van, PA Melanocytic nevus of trunk (Primary Dx); Melanocytic nevus of face, other location; Blue nevus of right upper arm; Seborrheic keratosis; Dermatofibroma of right lower extremity; Dermatofibroma; Dermatofibroma of left lower extremity 05/05/2024 Abstract [facility] [address] [place] [address] Ricky Peraza, DO 04/21/2024 11:20 AM EST Visit [facility] [address] [place] [address] Ella Nicole PA 6 weeks follow-up ([facility]) 03/16/2024 Abstract [facility] [address] [place] [address] Ricky Peraza, DO 03/04/2024 Clinisync Result Encounter NOMS External Department Unsolicited Ricky Peraza, DO 02/23/2024 Clinisync Result Encounter NOMS External Department Unsolicited Ricky Peraza, DO 02/18/2024 Clinisync Result Encounter NOMS External Department Unsolicited Ricky Peraza, DO 02/11/2024 Abstract [facility] [address] [place] [address] Ricky Peraza, DO 02/11/2024 Clinisync Result Encounter NOMS External Department Unsolicited Ricky Peraza, DO 02/05/2024 Clinisync Result Encounter NOMS External Department Unsolicited StuRicky, DO 01/28/2024 Abstract [facility] [address] [place] [address] Ricky Peraza, DO 01/28/2024 Telephone [facility] [address] [place] [address] Ricky Peraza, DO 01/27/2024 Clinisync Result Encounter NOMS External Department Unsolicited Ricky Peraza, DO 01/27/2024 Clinisync Result Encounter NOMS External Department Unsolicited Ricky Peraza, DO 01/26/2024 Bamboo flowsheet [facility] [address] [facility] [place] [address] Ricky Peraza, DO 01/26/2024 1:30 PM EST Routine [facility] [address] [place] [address] Ricky Peraza, DO Third trimester ([facility]); 34 weeks gestation of ([facility]) 01/19/2024 Clinisync Result Encounter NOMS External Department Unsolicited Ricky Peraza, DO 01/15/2024 Abstract [facility] [address] [place] [address] Ricky Peraza, DO 01/14/2024 Bamboo flowsheet [facility] [address] [facility] [place] [address] Ella Nicole PA 01/14/2024 10:30 AM EST Routine [facility] [address] [facility] [place] [place] [address] Ella Nicole PA Third trimester ([facility]); 32 weeks gestation of ([facility]) 01/12/2024 Clinisync Result Encounter NOMS External Department Unsolicited Ricky Peraza, DO 01/01/2024 Abstract [facility] [address] [facility] [place] [address] Rikcy Peraza, DO 12/30/2023 Clinisync Result Encounter NOMS External Department Unsolicited Ricky Peraza, DO 12/30/2023 Clinisync Result Encounter NOMS External Department Unsolicited Ricky Peraza, DO 12/30/2023 Bamboo flowsheet [facility] [address] [facility] [address] Ricky Peraza, DO 12/30/2023 10:30 AM EDT Routine [facility] [address] [facility] [address] Ricky Peraza, DO 30 weeks gestation of ([facility]); Third trimester ([facility]); Aortic stenosis of mother during ([facility]); Hypothyroid in , antepartum ([facility]); Vaginal discharge during in second trimester ([facility]); Encounter for screening for cervical length ([facility]) 12/27/2023 Clinisync Result Encounter NOMS External Department Unsolicited Ricky Peraza, DO 12/17/2023 Bamboo flowsheet [facility] [address] [facility] [address] Ella Nicole PA 12/17/2023 10:20 AM EDT Routine [facility] [address] [place] [address] Ella Nicole PA 28 weeks gestation of ([facility]); Third trimester ([facility]) 12/15/2023 Travel 12/08/2023 Telephone [facility] [address] [facility] [address] Ella Nicole PA 12/04/2023 Telephone [facility] [address] [facility] [address] Ricky Peraza, DO 11/27/2023 Abstract [facility] [address] [facility] [address] Ricky Peraza, DO 11/26/2023 Bamboo flowsheet [facility] [address] [facility] [place] [address] Ella Nicole PA 11/26/2023 9:50 AM EDT Routine [facility] [address] [facility] [address] Ella Nicole PA Second trimester ([facility]) 11/25/2023 Travel 11/20/2023 Abstract [facility] [address] [facility] [address] Brittani Smith LPN 11/20/2023 Abstract [facility] [address] [facility] [address] Brittani Smith LPN 11/17/2023 Clinisync Result Encounter NOMS External Department Unsolicited Ricky Peraza, DO 11/14/2023 Clinisync Result Encounter NOMS External Department Unsolicited Ricky Peraza, DO 10/30/2023 Bamboo flowsheet [facility] [address] [facility] [address] Ricky Peraza, DO 10/30/2023 9:40 AM EDT Routine [facility] [address] [place] [address] Ricky Peraza, DO 21 weeks gestation of ([facility]); Diabetes mellitus screening 10/28/2023 Travel 10/21/2023 Abstract [facility] [address] [facility] [address] Brittani Smith, DYNAMOMETER TESTER 10/07/2023 Abstract [facility] [address] [facility] [address] Ella Nicole PA 10/07/2023 Orders Only [facility] [address] [facility] [address] Clair Joseph MA 10/03/2023 Abstract [facility] [address] [facility] [address] Brittani mSith, DYNAMOMETER TESTER 10/02/2023 Telephone [facility] [address] [facility] [address] Brittani Smith, DYNAMOMETER TESTER 10/01/2023 Abstract [facility] [address] [facility] [address] Ricky Peraza, 09/30/2023 Clinisync Result Encounter NOMS External Department Unsolicited Ella Nicole PA 09/30/2023 External Result Encounter NOMS External Department Unsolicited Ella Nicole PA 09/30/2023 Abstract [facility] [address] [facility] [address] Ricky Peraza, DO 09/30/2023 Abstract [facility] [address] [facility] [address] Ricky Peraza, DO 09/30/2023 Bamboo flowsheet [facility] [address] [facility] [address] Ella Nicole PA 09/30/2023 9:30 AM EDT Routine [facility] [address] [facility] [address] Ella Nicole PA Well woman exam with routine gynecological exam; Second trimester ([facility]); Exposure to STD; Encounter for anatomic survey ([facility]); Need for maternal serum alpha-protein (MSAFP) screening ([facility]); Screening, , for anatomic survey ([facility]) 09/29/2023 Travel 09/01/2023 [place] [address] Radha Daly LPN 09/01/2023 [place] [address] Ricky Peraza, DO 09/01/2023 11:20 AM [place] [address] Ricky Peraza, DO First trimester ([facility]) 08/31/2023 Travel 08/21/2023 [place] [address] Radha Daly, MELVI Thyroid disorder 08/21/2023 Clinisync Result Encounter NOMS External Department Unsolicited Ricky Peraza, DO 07/31/2023 Clinisync Result Encounter NOMS External Department Unsolicited Ricky Peraza, DO 07/31/2023 2:30 PM [place] [address] [place]: 8w3d 07/30/2023 Travel 07/05/2023 Clinisync Result Encounter NOMS External Department Unsolicited Ricky Peraza, DO 07/03/2023 Clinisync Result Encounter NOMS External Department Unsolicited Ricky Peraza, DO 07/03/2023 [place] [address] Anastasia Mcdowell LPN 06/20/2023 Clinisync Result Encounter NOMS External Department Unsolicited Provider, Generic External Data 05/27/2023 Bamboo flowsheet [facility] [address] [place] [address] Di Van PA 05/27/2023 Travel 05/27/2023 10:40 AM EDT Office Visit [facility] [address] [place] [address] Di Van PA Melanocytic nevus of trunk (Primary Dx); Seborrheic keratosis; Dermatofibroma of right lower extremity 05/26/2023 Travel 05/22/2021 Legacy Non Patient Presenting [facility] CONVERSION LEGACY Juan José Felix, DO 09/29/2019 eCW Legacy Documentation [facility] CONVERSION LEGACY 05/26/2019 Legacy Non Patient Presenting [facility] DATA CONVERSION LEGACY Di Van PA Acne vulgaris 04/07/2019 eCW Legacy Documentation [facility] DATA CONVERSION LEGACY 04/06/2019 eCW Legacy Documentation [facility] DATA CONVERSION LEGACY 04/06/2019 Legacy Non Patient Presenting [facility] DATA CONVERSION LEGACY Fruth, Janice E, BODY ARTIST 10/13/2018 eCW Legacy Documentation [facility] DATA CONVERSION LEGACY 09/15/2018 eCW Legacy Documentation [facility] DATA CONVERSION LEGACY 06/02/2018 eCW Legacy Documentation [facility] DATA CONVERSION LEGACY 03/31/2018 eCW Legacy Documentation [facility] DATA CONVERSION LEGACY 03/31/2018 Legacy Non Patient Presenting [facility] DATA CONVERSION LEGACY Fruth, Janice E, BODY ARTIST 03/30/2018 eCW Legacy Documentation [facility] DATA CONVERSION LEGACY 03/30/2018 Legacy Non Patient Presenting [facility] DATA CONVERSION LEGACY Fruth, Janice E, BODY ARTIST 03/12/2018 Legacy Non Patient Presenting [facility] DATA CONVERSION LEGACY Fruth, Janice E, BODY ARTIST 01/15/2018 eCW Legacy Documentation [facility] DATA CONVERSION LEGACY 01/14/2018 Legacy Non Patient Presenting [facility] DATA CONVERSION LEGACY Di Van PA 01/12/2018 eCW Legacy Documentation [facility] DATA CONVERSION LEGACY 07/16/2017 eCW Legacy Documentation [facility] DATA CONVERSION LEGACY 03/25/2017 eCW Legacy Documentation [facility] DATA CONVERSION LEGACY 03/25/2017 Legacy Non Patient Presenting [facility] DATA CONVERSION LEGACY Fruth, Janice E, BODY ARTIST Allergies Active Allergy Reactions Criticality Noted Date Comments Doxycycline Unknown High 04/14/2012 ulercative esophagus Ulcerative esophagus Other Reaction(s): ulcer esophagus Other Reaction(s): Other Ulcerative esophagus Other Reaction(s): ulcer esophagus ulercative esophagus ulercative esophagus Ulcerative esophagus Other Reaction(s): ulcer esophagus Erythromycin 04/14/2012 Other Reaction(s): Other Spironolactone Dizziness 05/27/2023 Amoxicillin Rash,Unknown Low 04/14/2012 As a child Other Reaction(s): Other Clarithromycin Rash,Unknown Low 10/07/2015 Ok to take azithromycin Other Reaction(s): Unknown Ok to take azithromycin Ok to take azithromycin Clindamycin/Lincomycin Unknown Low 07/12/2014 Ulcerated esophagus ulcerated esophagus Able to take IV- just had throat ulceration when swallowed pill Other Reaction(s): ulcer esophagus Clindamycin Low 03/16/2017 Other Reaction(s): Other Able to take IV- just had throat ulceration when swallowed pill Other Reaction(s): ulcer esophagus ulcerated esophagus Lincomycin Low 07/12/2014 Other Reaction(s): Other, Unknown Ulcerated esophagus Ulcerated esophagus ulcerated esophagus Able to take IV- just had throat ulceration when swallowed pill Other Reaction(s): ulcer esophagus Medications Vit-DSS-Fe Fum-FA ( 19) tablet Take 1 tablet by mouth in the morning. 3 Active [place]-3 Fatty Acids (OMEGA 3 PO) Take by mouth Active omega-3 1000 MG capsule capsule Acti ve estradiol (Estrace) 0.1 MG/GM vaginal creamIndication s:Recurrent UTI Insert 2 g into the vagina at bedtime At bedtime for 2 weeks, then at bedtime twice a week. 42.5 g 1 5 10/06/19 26 Active Estrogens Conjugated (Premarin) 0.625 MG/GM creamIndication s:Encounter for visit ([facility]),Dyspa reunia in female Insert 0.5 g into the urethra Daily Use daily for 2 weeks, if symptoms return then may use twice weekly. 0.5 g 3 5 09/19/19 25 Active Problems No known active problems Family History Medical History Relation Name Comments Seizures Brother Sean Casey Cancer Father Estrada Casey Hypertension Father's Brother Tucker Casey Breast cancer Father's Sister 1 Diana Latonya Hyperlipidemia Father's Sister 1 Diana Latonya Hypertension Father's Sister 1 Diana Latonya Hypertension Father's Sister 2 Lakisha O C onnor Hypertension Maternal Grandfather Michael Holder Stroke Mother's Brother Adelso Holder Hypertension Paternal Grandmother Shagufta Lamffee Relation Name Status Comments Brother Sean Casey Father Estrada Casey Father's Brother Tucker Casey Father's Sister 1 Diana Latonya Father's Sister 2 Lakisha O C onnor Maternal Grandfather Michael Holder Mother's Brother Adelso Holder Paternal Grandmother Shagufta Lamffee Social History Smoking Status as of 10/05/2024 Tobacco Use Types Packs/Day Years Used Date Smoking Tobacco: Never Assessed Sex and Gender Information Value Date Recorded Sex Assigned at Not on file Legal Sex Female 6:37 PM EDT Gender Identity Not on file Sexual Orientation Not on file Last Filed Vital Signs Vital Sign Reading Time Taken Comments Blood Pressure 112/70 10/05/2024 2:26 PM EDT Pulse - - Temperature - - Respiratory Rate - - Oxygen Saturation - - Inhaled Oxygen Concentration - - Weight 63 kg (138 lb 12.8 oz) 10/05/2024 2:26 PM EDT Height 162.6 cm (5' 4 ) 05/27/2022 12:00 PM EDT Body Mass Index 23.82 05/27/2022 12:00 PM EDT Plan of Treatment Upcoming Encounters Date Type Department Care Team (Late st Contact Info) Description 10/25/2024 2:20 PM EDT Office Visit [facility] [address] [facility] [address] Ricky Peraza DO [address] [facility] [address] [place], [place] [address] 06/07/2025 10:20 AM EDT Office Visit [facility] [address] [place] [address] Di Van, PA [address] [place] [address] 10/10/2025 3:00 PM EDT Procedure Visit [facility] [address] [facility] [place] [address] Stu Ricky, DO [address] [facility] [address] [place], [place] [address] Procedures Procedure Name Priority Date/Time Associated Diagnosis Comments US OB BPP W NON-STRESS 03/04/2024 11:22 PM EST US OB BPP W NON-STRESS 02/23/2024 1:20 PM EST US OB BPP W NON-STRESS 02/18/2024 11:28 AM EST US OB BPP W NON-STRESS 02/11/2024 10:56 AM EST US OB BPP W NON-STRESS 02/05/2024 6:09 AM EST US OB BPP W NON-STRESS 01/27/2024 4:51 AM EST US OB CERVICAL LENGTH 01/27/2024 4:51 AM EST POCT URINALYSIS DIPSTICK Routine 01/26/2024 2:05 PM EST Third trimester ([facility]) 34 weeks gestation of ([facility]) US OB BPP W NON-STRESS 01/19/2024 12:10 PM EST POCT URINALYSIS DIPSTICK Routine 01/14/2024 10:58 AM EST Third trimester ([facility]) US OB BPP W NON-STRESS 01/12/2024 11:01 AM EST US AMNIOTIC FLUID VOLUME 12/30/2023 1:07 PM EDT US OB CERVICAL LENGTH 12/30/2023 1:07 PM EDT RECURRENT VAGINITIS (HTRX) Routine 12/30/2023 12:02 PM EDT POCT URINALYSIS DIPSTICK Routine 12/30/2023 11:04 AM EDT 30 weeks gestation of ([facility]) Third trimester ([facility]) [facility] UA (CLEAN/CATCH) DIRECTOR OF STRATEGIC ALLIANCES/MICRO IF IND. Routine 12/27/2023 8:25 PM EDT POCT URINALYSIS DIPSTICK Routine 12/17/2023 10:32 AM EDT 28 weeks gestation of ([facility]) Third trimester ([facility]) POCT URINALYSIS DIPSTICK Routine 11/26/2023 10:00 AM EDT Second trimester ([facility]) GLUCOSE 1 HOUR Routine 11/17/2023 11:33 AM EDT ALL CBC WITH AUTO DIFF Routine 11:33 AM EDT [facility] UA (CLEAN/CATCH) DIRECTOR OF STRATEGIC ALLIANCES/MICRO IF IND. Routine 11/14/2023 2:55 PM EDT POCT URINALYSIS DIPSTICK Routine 10/30/2023 9:56 AM EDT 21 weeks gestation of ([facility]) RECURRENT VAGINITIS (HTRX) Routine 09/30/2023 11:03 AM EDT POCT URINALYSIS DIPSTICK Routine 09/30/2023 9:37 AM EDT Second trimester ([facility]) IGP,APTIMA HPV,AGE GDLN Routine 09/30/2023 9:24 AM EDT PAP SMEAR Routine 09/30/2023 12:00 AM EDT POCT URINALYSIS DIPSTICK Routine 09/01/2023 11:45 AM EDT First trimester ([facility]) HBSAG SCREEN Routine 08/21/2023 11:23 AM EDT RAPID PLASMA REAGIN, QUANT Routine 08/21/2023 11:23 AM EDT HCV ANTIBODY RFX TO QUANT PCR Routine 08/21/2023 11:23 AM EDT HIV AB/P24 AG WITH REFLEX Routine 08/21/2023 11:23 AM EDT ALL RUBELLA IGG AB Routine 08/21/2023 11 :23 AM EDT ALL THYROID STIM HORMONE Routine 08/21/2023 11:23 AM EDT ALL TYPE AND SCREEN Routine 08/21/2023 1 1:23 AM EDT ALL CBC WITH AUTO DIFF Routine 11:23 AM EDT MLR HEMOGLOBIN A1C Routine 08/21/2023 11 :23 AM EDT POCT , URINE Routine 07/31/2023 3:04 PM EDT Missed menses POCT URINALYSIS DIPSTICK Routine 07/31/2023 3:01 PM EDT Missed menses US OB TRANSVAGINAL 07/31/2023 2: 58 PM EDT TB[facility] PREG QUANT HCG Routine 07/05/2023 11 :07 AM EDT TB[facility] PREG QUANT HCG Routine 07/03/2023 11 :11 AM EDT MHPT VZ IMMUNITY Routine 06/20/2023 9:01 AM EDT FREE T3 Routine 03/12/2018 CBC WITH AUTO DIFFERENTIAL Routine 03/12/2018 TSH Routine 03/12/2018 T4, FREE Routine 03/12/2018 IRON PROFILE Routine 03/12/2018 URINALYSIS, COMPLETE W/REFLEX TO CULTURE Routine 03/12/2018 COMPREHENSIVE METABOLIC PANEL Routine 03/12/2018 LIPID PANEL Routine 03/12/2018 US NECK HEAD SOFT TISSUE Routine 03/12/2018 Other fatigue Generalized enlarged lymph nodes CT ABDOMEN PELVIS W IV CONTRAST Routine 03/26/2017 12:00 PM EST Generalized abdominal pain Nausea Abnormal levels of other serum enzymes Results * US OB BPP W NON-STRESS (03/04/2024 11:22 PM EST) Only the most recent of8 resultswithin the time period is included. Anatomical Region Laterality Modality Other 03/04/2024 11:2 2 PM EST Narrative 03/04/2024 11:24 [place] [address] Ultrasound Report Signed Patient: ADRY LEVY MR#: [id number] : 1995 Acct:[id number] Age/Sex: 29 / F ADM Date: 03/04/24 Loc: [facility] Attending Dr: Ricky Peraza D.O. Ordering Physician: Ricky Peraza D.O. Date of Service: 03/04/24 Procedure(s): US OB BPP w non-stress Accession Number(s): [id number] cc: Ricky Peraza D.O.; Physician,Non-Staff M.New The [address] [address] Patient Name: ADRY LEVY MRN: [facility]:[id number] date: 1995 Sex: F Assigned Patient Location: [facility] Current Patient Location: Accession/Order Number: [id number] Exam Date: 03/04/2024 10:02 Report Date: 03/04/2024 23:22 At the request of: RICKY PERAZA Procedure: US OB BPP w non-stress EXAMINATION: US OB BPP w non-stress HISTORY:Aortic stenosis of mother COMPARISON: Ultrasound OB biophysical 02/23/2024 TECHNIQUE: Ultrasound biophysical profile was performed in the radiology department. BREATHING MOVEMENTS: 2 GROSS BODY MOVEMENTS: 2 TONE: 2 QUALITATIVE AMNIOTIC FLUID VOLUME: 2 PRESENTATION: CEPHALIC HEART RATE: 126.76 bpm AMNIOTIC FLUID VOLUME: 15.21 cm GESTATIONAL AGE: 39 weeks 3 days US/US OB BPP w non-stress IMPRESSION: Total biophysical profile score: 8 Electronically authenticated by: FEDE EDWARDS Date: 03/04/2024 23:22 Dictated By: Fede Edwards M.D. Signed By: 03/04/242323 DD/ 21 TD/TT: Hangersmith: Procedure Note Radiology, Radiologist, MD - 03/04/2024 [place] [address] Ultrasound Report Signed Patient: ADYR LEVY R#: [id number] : 1995Acct:[id number] Age/Sex: 29 / FADM Date: 03/04/24 Loc: [facility]O Attending Dr: Ricky Peraza D.O. Ordering Physician: Ricky Peraza D.O. Date of Service: 03/04/24 Procedure(s): US OB BPP w non-stress Accession Number(s): [id number] cc: Ricky Peraza D.O.; Physician,Non-Staff Babak The [address] [address] Patient Name: ADRY LEVY MRN: [facility]:[id number] date: 1995 Sex: F Assigned Patient Location: [facility] Current Patient Location: Accession/Order Number: [id number] Exam Date: 03/04/2024 10:02 Report Date: 03/04/2024 23:22 At the request of: RICKY PERAZA Procedure: US OB BPP w non-stress EXAMINATION: US OB BPP w non-stress HISTORY:Aortic stenosis of mother COMPARISON: Ultrasound OB biophysical 02/23/2024 TECHNIQUE: Ultrasound biophysical profile was performed in the radiology department. BREATHING MOVEMENTS: 2 GROSS BODY MOVEMENTS: 2 TONE: 2 QUALITATIVE AMNIOTIC FLUID VOLUME: 2 PRESENTATION: CEPHALIC HEART RATE: 126.76 bpm AMNIOTIC FLUID VOLUME: 15.21 cm GESTATIONAL AGE: 39 weeks 3 days US/US OB BPP w non-stress IMPRESSION: Total biophysical profile score: 8 Electronically authenticated by: FEDE EDWARDS Date: 03/04/2024 23:22 Dictated By: Fede Edwards M.D. Signed By:03/04/242323 DD/ 21 TD/TT: Hangersmith: us Ricky Peraza DO [facility] Final Result * US OB CERVICAL LENGTH (01/27/2024 4:51 AM EST) Only the most recent of2 resultswithin the time period is included. Anatomical Region Laterality Modality Other 01/27/2024 4:51 AM EST Narrative 01/27/2024 4:54 AM EST [address] [address] Ultrasound Report Signed Patient: ADRY LEVY MR#: [id number] : 1995 Acct:[id number] Age/Sex: 28 / F ADM Date: 01/26/24 Loc: US Attending Dr: Ricky Peraza D.O. Ordering Physician: Ricky Peraza D.O. Date of Service: 01/26/24 Procedure(s): US OB cervical length Accession Number(s): [id number] cc: Ricky Peraza D.O.; Physician,Non-Staff Babak The [address] [address] Patient Name: ADRY LEVY MRN: [facility]:[id number] date: 1995 Sex: F Assigned Patient Location: [facility] Current Patient Location: Accession/Order Number: [id number] Exam Date: 01/26/2024 10:43 Report Date: 01/27/2024 [...] M.D. Signed By: 01/27/24453 DD/ 0 TD/TT: Hangersmith: Procedure Note Radiology, Radiologist, MD - 01/27/2024 [place] [address] Ultrasound Report Signed Patient: ADRY LEVY R#: [id number] : 1995Acct:[id number] Age/Sex: 28 / FADM Date: 01/26/24 Loc: US Attending Dr: Ricky Peraza D.O. Ordering Physician: Ricky Peraza D.O. Date of Service: 01/26/24 Procedure(s): US OB cervical length Accession Number(s): [id number] cc: Ricky Peraza D.O.; Physician,Non-Staff [facility] [place] [id number] Patient Name: ADRY LEVY MRN: [facility]:[id number] date: 1995 Sex: F Assigned Patient Location: [facility] Current Patient Location: Accession/Order Number: [id number] Exam Date: 01/26/2024 10:43 Report Date: 01/27/2024 [...] 04:51 Dictated By: Fede Edwards M.D. Signed By:01/27/24453 DD/ 0 TD/TT: Hangersmith: us Ricky Peraza DO [facility] Final Result * POCT urinalysis dipstick manually resulted (01/26/2024 2:05 PM EST) Only the most recent of9 resultswithin the time period is included. Color, UA Yellow Clarity, UA Clear Glucose, UA Negative Negative - 1999(110) ++++ mg/dL Bilirubin, UA Negative Negative - 4(70) +++ mg/dL Ketones, UA Negative Negative - 160(16) ++++ mg/dL Spec Grav, UA 1.020 1 - 1.03 Blood, UA Negative Negative - 50 Sina/mcL pH, UA 5.5 5 - 9 Protein, UA Negative Negative - 1999(20) ++++ mg/dL Urobilinogen, UA 1.0 0.2 - 12 mg/dL Leukocytes, UA Negative Negative - 500+++ Amos/mcL Nitrite, UA Negative Negative - Positive Urine 01/26/2024 2:05 PM EST us Ricky Peraza DO POINT OF CARE TEST ENTER/EDIT OR DERABLES Final Result * US AMNIOTIC FLUID VOLUME (12/30/2023 1:07 PM EDT) Anatomical Region Laterality Modality Radiographic Jolie ging 12/30/2023 1:07 PM EDT Narrative 12/30/2023 1:10 [place] [address] Ultrasound Report Signed Patient: ADRY LEVY MR#: [id number] : 1995 Acct:[id number] Age/Sex: 28 / F ADM Date: 12/30/23 Loc: [facility] Attending Dr: Ricky Peraza D.O. Ordering Physician: Ricky Peraza D.O. Date of Service: 12/30/23 Procedure(s): US OB amniotic fluid vol Accession Number(s): [id number] cc: Ricky Peraza D.O.; Physician,Non-Staff M.[place] [id number] Patient Name: ADRY LEVY MRN: [id number] date: 1995 Sex: F Assigned Patient Location: [facility] Current Patient Location: [facility] Accession/Order Number: [id number] Exam Date: 12/30/2023 11:57 Report Date: 12/30/2023 13:07 At the request of: RICKY PERAZA Procedure: US OB amniotic fluid vol EXAMINATION: US OB amniotic fluid vol, US OB cervical length HISTORY: VAGINAL DISCHARGE COMPARISON: No relevant comparison available. FINDINGS: position: Cephalic presentation, longitudinal lie Amniotic fluid: 18.7 cm Largest fluid pocket: 5.8 cm Heart rate: 133 beats minute Cervix: 4.2 cm, closed Clinical age: 30 weeks 1 day Clinical YE: 03/08/2024 US/US OB amniotic fluid vol IMPRESSION: Normal amniotic fluid index Closed cervix measuring 4.2 cm in length Electronically authenticated by: EULOGIO BARCLAY Date: 12/30/2023 13:07 Dictated By: Eulogio Barclay M.D. Signed By: 12/30/23 1310 DD/ 1307 TD/TT: Hangersmith: Procedure Note Radiology, Radiologist, - 12/30/2023 [place] [address] Ultrasound Report Signed Patient: ADRY LEVY R#: [id number] : 1995Acct:[id number] Age/Sex: 28 / FADM Date: 12/30/23 Loc: [facility] Attending Dr: Ricky Peraza D.O. Ordering Physician: Ricky Peraza D.O. Date of Service: 12/30/23 Procedure(s): US OB amniotic fluid vol Accession Number(s): [id number] cc: Ricky Peraza D.O.; Physician,Non-Staff [place]ak [place] [address] Patient Name: ADRY LEVY MRN: [id number] date: 1995 Sex: F Assigned Patient Location: [facility] Current Patient Location: [facility] Accession/Order Number: [id number] Exam Date: 12/30/2023 11:57 Report Date: 12/30/2023 13:07 At the request of: RICKY PERAZA Procedure: US OB amniotic fluid vol EXAMINATION: US OB amniotic fluid vol, US OB cervical length HISTORY: VAGINAL DISCHARGE COMPARISON: No relevant comparison available. FINDINGS: position: Cephalic presentation, longitudinal lie Amniotic fluid: 18.7 cm Largest fluid pocket: 5.8 cm Heart rate: 133 beats minute Cervix: 4.2 cm, closed Clinical age: 30 weeks 1 day Clinical YE: 03/08/2024 US/US OB amniotic fluid vol IMPRESSION: Normal amniotic fluid index Closed cervix measuring 4.2 cm in length Electronically authenticated by: EULOGIO BARCLAY Date: 12/30/2023 13:07 Dictated By: Eulogio Barclay M.D. Signed By:12/30/23 1310 DD/ 1307 TD/TT: Hangersmith: Ricky Peraza DO [facility] [place]R PROCEDURES Final Result * URETHRITIS/DISCHARGE PLUS VAGINITIS (HTRX) (12/30/2023 12:02 PM EDT) Only the most recent of2 resultswithin the time period is included. [facility] ATOPOBIUM VAGINAE 0.000 19.961 - 24.689 ppm 12/31/2023 7:42 AM EDT [facility] ATOPOBIUM VAGINAE Not Detected 19.961 - 24.689 ppm 12/31/2023 7:42 AM EDT [facility] BVAB 2,3 (BACTERIAL VAGINOSIS ASSOCIATED BACTERIA 2, 3); MOBILUNCUS SPP 0.000 19.961 - 24.689 ppm 12/31/2023 7:42 AM EDT [facility] BVAB 2,3 (BACTERIAL VAGINOSIS ASSOCIATED BACTERIA 2, 3); MOBILUNCUS SPP Not Detected 19.961 - 24.689 ppm 12/31/2023 7:42 AM EDT [facility] ALIREZA ALBICANS, PARAPSILOSIS, TROPICALIS 0.000 19.961 - 30.770 ppm 12/31/2023 7:42 AM EDT [facility] ALIREZA ALBICANS, PARAPSILOSIS, TROPICALIS Not Detected 19.961 - 30.770 ppm 12/31/2023 7:42 AM EDT [facility] ALIREZA GLABRATA 0.000 23.000 - 32.138 ppm 12/31/2023 7:42 AM EDT [facility] ALIREZA GLABRATA Not Detected 23.000 - 32.138 ppm 12/31/2023 7:42 AM EDT [facility] ALIREZA KRUSEI 0.000 23.000 - 32.271 ppm 12/31/2023 7:42 AM EDT [facility] ALIREZA KRUSEI Not Detected 23.000 - 32.271 ppm 12/31/2023 7:42 AM EDT [facility] CHLAMYDIA TRACHOMATIS 0.000 23.000 - 31.467 ppm 12/31/2023 7:42 AM EDT [facility] CHLAMYDIA TRACHOMATIS Not Detected 23.000 - 31.467 ppm 12/31/2023 7:42 AM EDT [facility] GARDNERELLA VAGINALIS 0.000 19.961 - 24.689 ppm 12/31/2023 7:42 AM EDT [facility] GARDNERELLA VAGINALIS Not Detected 19.961 - 24.689 ppm 12/31/2023 7:42 AM EDT [facility] MEGASPHAERA (TYPES 1, 2) 0.000 19.961 - 24.689 ppm 12/31/2023 7:42 AM EDT [facility] MEGASPHAERA (TYPES 1, 2) Not Detected 19.961 - 24.689 ppm 12/31/2023 7:42 AM EDT [facility] NEISSERIA GONORRHOEAE 0.000 23.000 - 32.117 ppm 12/31/2023 7:42 AM EDT [facility] NEISSERIA GONORRHOEAE Not Detected 23.000 - 32.117 ppm 12/31/2023 7:42 AM EDT [facility] TRICHOMONAS VAGINALIS 0.000 23.000 - 32.119 ppm 12/31/2023 7:42 AM EDT [facility] TRICHOMONAS VAGINALIS Not Detected 23.000 - 32.119 ppm 12/31/2023 7:42 AM EDT [facility] MYCOPLASMA GENITALIUM 0.000 19.961 - 24.689 ppm 12/31/2023 7:42 AM EDT [facility] MYCOPLASMA GENITALIUM Not Detected 19.961 - 24.689 ppm 12/31/2023 7:42 AM EDT [facility] Tissue 12/30/2023 12:0 2 PM EDT 12/31/2023 2:10 AM EDT us Ricky Peraza DO LAB BLOOD ORDERABLES Final Resul t [facility] [address] [place] [address] * (ABNORMAL) TBH UA (CLEAN/CATCH) DIRECTOR OF STRATEGIC ALLIANCES/MICRO IF IND. (12/27/2023 8:25 PM EDT) Only the most recent of2 resultswithin the time period is included. COLOR URINE LT. YELLOW YELLOW TBH CLARITY URINE CLEAR CLEAR TBH SPECIFIC GRAVITY URINE <=1.005(A) 1.005 - 1.025 TBH PH URINE 7.0 5.0 - 9.0 TBH PROTEIN URINE NEGATIVE NEG/TRACE mg/dL TBH GLUCOSE URINE UA NEGATIVE NEGATIVE mg/dL TBH BILIRUBIN URINE NEGATIVE NEGATIVE TBH KETONES URINE TRACE(A) NEGATIVE mg/dL TBH BLOOD URINE NEGATIVE NEGATIVE TBH NITRITE URINE NEGATIVE NEGATIVE TBH UROBILINOGEN URINE 0.2 0.2 - 1.0 EU/dL TBH LEUKOCYTE ESTERASE URINE NEGATIVE NEGATIVE TBH URINE MICROSCOPIC INDICATED NO TBH 12/27/2023 8:25 PM EDT 12/27/2023 9:00 PM EDT Narrative CLINISYNC - 12/27/2023 9:09 PM EDT us Ricky Stu DO CLINISYNC Final Result CLINISYNC [facility] * GLUCOSE 1 HOUR (11/17/2023 11:33 AM EDT) GLUCOSE 1 HOUR 103 <130 mg/dL TBH 11/17/2023 11:3 3 AM EDT 11/17/2023 11:40 AM EDT Narrative CLINISYNC - 11/17/2023 1:15 PM EDT us Ricky Stu DO LAB BLOOD ORDERABLES Final Resul t CLINISYNC [facility] * (ABNORMAL) ALL CBC WITH AUTO DIFF (11/17/2023 11:33 AM EDT) Only the most recent of2 resultswithin the time period is included. TBH WBC 9.1 4.0 - 11.0 10 3/uL TBH TBH RBC 3.81(L) 4.20 - 5.40 10 6/uL TBH TBH HGB 11.5(L) 12.0 - 16.0 g/dL TBH TBH HCT 34.3(L) 36.0 - 48.0 % TBH TBH MCV 90.0 81.0 - 99.0 fL TBH TBH MCH 30.2 26.7 - 34.0 pg TBH TBH MCHC 33.5 29.9 - 35.2 g/dL TBH TBH RDW 13.0 11.0 - 15.0 % TBH TBH PLT 181 150 - 450 10 3/uL TBH TBH MPV 11.1 9.5 - 13.5 fL TBH NEUTROPHILS PERCENT AUTO 68.1 43.0 - 75.0 % TBH LYMPHOCYTES PERCENT AUTO 19.8(L) 20.5 - 60.0 % TBH MONOCYTES PERCENT AUTO 7.3 1.7 - 12.0 % TBH TBH EO % 2.0 0.9 - 7.0 % TBH BASOPHILS PERCENT AUTO 0.8 0.2 - 2.0 % TBH IMMATURE GRANULOCYTES PCT AUTO 2.0(H) 0.0 - 0.5 % TBH NEUTROPHILS ABSOLUTE AUTO 6.2 1.4 - 6.5 10 3/uL TBH LYMPHOCYTES ABSOLUTE AUTO 1.8 1.2 - 3.8 10 3/uL TBH MONOCYTES ABSOLUTE AUTO 0.7 0.3 - 0.8 10 3/uL TBH TBH EO # 0.2 0.0 - 0.7 10 3/uL TBH BASOPHILS ABSOLUTE AUTO 0.1 0.0 - 0.1 10 3/uL TBH IMMATURE GRANULOCYTES ABS AUTO 0.18(H) 0.00 - 0.03 10 3/uL TBH 11/17/2023 11:3 3 AM EDT 11/17/2023 11:40 AM EDT Narrative CLINISYNC - 11/17/2023 12:25 PM EDT Ricky Peraza DO CLINISYNC Final Result CLINISYNC [facility] * IGP,APTIMA HPV,AGE GDLN (09/30/2023 9:24 AM EDT) AGE LEIGHTONMICHELLE ACOG TESTING Note . [facility] Comment: TESTS RESULT FLAG UNITS REF RANGE LAB Clinician Provided Cytology Information Source.............Cervix No. of containers..01 ThinPrep Vial Yuri MCKEON Galilea... FLAG LEGEND: L-Low Normal,H-High Normal,LL-Alert Low,HH-Alert High <-Panic Low,>-Panic High,A-Abnormal,AA-Critical Abnormal Performed at: 01 =G [address] [address] Kamryn Jansen MD, IGP, RFX APTIMA HPV ASCU Note . [facility] Comment: TESTS RESULT FLAG UNITS REF RANGE LAB DIAGNOSIS: 02 NEGATIVE FOR INTRAEPITHELIAL LESION OR MALIGNANCY. FUNGAL ORGANISMS MORPHOLOGICALLY CONSISTENT WITH ALIREZA SPECIES ARE PRESENT. Specimen adequacy: 02 Satisfactory for evaluation. Endocervical and/or squamous metaplastic cells (endocervical component) are present. Performed by: 02 Bessie Raya, Animal Damage Control Agent (ASCP) . 02 Note: Note 02 The Pap smear is a screening test designed to aid in the detection of premalignant and malignant conditions of the uterine cervix. It is not a diagnostic procedure and should not be used as the sole means of detecting cervical cancer. Both false-positive and false-negative reports do occur. Test Methodology: Note 02 This liquid based ThinPrep(R) pap test was screened with the use of an image guided system. . 02 The HPV DNA reflex criteria were not met with this specimen result therefore, no HPV testing was performed. FLAG LEGEND: L-Low Normal,H-High Normal,LL-Alert Low,HH-Alert High <-Panic Low,>-Panic High,A-Abnormal,AA-Critical Abnormal Performed at: [address] [address] Kamryn Jansen MD, Performed at: =G - [facility] [address] [id number] Health Center Assistant: Kamryn Jansen MD, Phone: [phone] Performed at: [facility] [address] [id number] Health Center Assistant: Kamryn Jansen MD, Phone: [phone] 09/30/2023 9:24 AM EDT 10/01/2023 7:14 AM EDT Narrative CLINISYNC - 10/04/2023 2:11 PM EDT SPATULA-ALONE CERVIX Ella SQUIRES LAB BLOOD ORDERABLES Final Resul t Performing Organization Address [facility]/ZIP Co de Phone Number [facility] * Pap Smear (09/30/2023 12:00 AM EDT) Swab Cervical swab / Unknown Ella SQUIRES LAB CYTOLOGY ORDERABLES Final Re sult Performing Organization Address [facility]/ZIP Co de Phone Number EXTERNAL LAB * HBSAG SCREEN (08/21/2023 11:23 AM EDT) Pathologist [facility] HBSAG SCREEN Negative Negative [facility] Comment: Performed at: [address] [id number] Health Center Assistant: Romario Vasquez PhD, Phone: [phone] 08/21/2023 11:2 3 AM EDT 08/21/2023 11:26 AM EDT Narrative CLINISYNH - 08/22/2023 11:10 AM EDT Ricky Peraza DO LAB BLOOD ORDERABLES Final Resul t Performing Organization Address [facility] Co de Phone Number * RAPID PLASMA REAGIN, QUANT (08/21/2023 11:23 AM EDT) [facility] RAPID PLASMA REAGIN, QUANT Non Reactive NonRea<1: 1 titer [facility] Comment: Please Note: This test does not meet current guidelines for screening and diagnosis of syphilis. This test is intended for following treatment response in patients being treated for syphilis infection. To screen for syphilis infection, a reflex cascade that includes both RPR and a treponema-specific assay should be utilized, such as Treponema pallidum (Syphilis) Screening [place] (994578) or Rapid Plasma Reagin (RPR) Test With Reflex to Quantitative RPR and Confirmatory Treponema pallidum Antibodies (319894). Performed at: [address] [id number] Health Center Assistant: Romario Vasquez PhD, Phone: [phone] 08/21/2023 11:2 3 AM EDT 08/21/2023 11:26 AM EDT Narrative [facility] - 08/22/2023 11:10 AM EDT Ricky Stu DO LAB BLOOD ORDERABLES Final Resul t Performing Organization Address [facility] Co de Phone Number * HIV AB/P24 AG WITH REFLEX (08/21/2023 11:23 AM EDT) Pathologist [facility] HIV AB/P24 AG SCREEN Non Reactive Non Reactive [facility] Comment: HIV Negative HIV-1/HIV-2 antibodies and HIV-1 p24 antigen were NOT detected. There is no laboratory evidence of HIV infection. Performed at: [facility] [address] [id number] Health Center Assistant: Romario Vasquez PhD, Phone: [phone] 08/21/2023 11:2 3 AM EDT 08/21/2023 11:26 AM EDT Narrative [facility] - 08/22/2023 6:10 AM EDT [employer] DO LAB BLOOD ORDERABLES Final Resul t Performing Organization Address [facility] de Phone Number * HCV ANTIBODY RFX TO QUANT PCR (08/21/2023 11:23 AM EDT) Pathologist [facility] HCV AB Non Reactive Non Reactive [facility] INTERPRETATION: Comment . [facility] Comment: Not infected with HCV unless early or acute infection is suspected (which may be delayed in an immunocompromised individual), or other evidence exists to indicate HCV infection. 08/21/2023 11:2 3 AM EDT 08/21/2023 11:26 AM EDT Narrative [facility] - 08/22/2023 6:10 AM EDT [employer] DO LAB BLOOD ORDERABLES Final Resul t Performing Organization Address [facility] Co de Phone Number * MLR HEMOGLOBIN A1C (08/21/2023 11:23 AM EDT) [facility] GLYCOHEMOGLOBIN A1C 5.1 4.5 - 6.2 % TBH Comment: ADA RECOMMENDED LIMIT 4.0 - 6.0 ADA THERAPEUTIC TARGET < 7.0 ACTION SUGGESTED > 7.0 ESTIMATED AVERAGE GLUCOSE 100 mg/dL TBH 08/21/2023 11:2 3 AM EDT 08/21/2023 11:26 AM EDT Narrative CLINISYNC - 08/21/2023 11:53 AM EDT Ricky Stu DO CLINISYNC Final Result Performing Organization Address City/[facility]/ZIP Co de Phone Number [facility] * ALL TYPE AND SCREEN (08/21/2023 11:23 AM EDT) BLOOD TYPE A Positive TBH ANTIBODY SCREEN NEGATIVE TBH 08/21/2023 11:2 3 AM EDT 08/21/2023 11:26 AM EDT Narrative CLINISYNH - 08/21/2023 12:16 PM EDT [facility] , Ricky Stu DO CLINISYNC Final Result Performing Organization Address [facility] Co de Phone Number [facility] TB * ALL THYROID STIM HORMONE (08/21/2023 11:23 AM EDT) THYROID STIMULATING HORMONE 2.881 0.358 - 3.740 uIU/mL TBH 08/21/2023 11:2 3 AM EDT 08/21/2023 1:35 PM EDT Narrative CLINISYNH - 08/21/2023 2:44 PM EDT [employer] DO [facility] Final Result Performing Organization Address City/[facility] Co de Phone Number [facility] * ALL RUBELLA IGG AB (08/21/2023 11:23 AM EDT) RUBELLA ANTIBODIES, IGG 2.07 Immune >0.99 index TBH Comment: Non-immune <0.90 Equivocal 0.90 - 0.99 Immune >0.99 08/21/2023 11:2 3 AM EDT 08/21/2023 11:26 AM EDT Narrative CLINISYNC - 08/22/2023 6:10 AM EDT Ricky Peraza DO CLINISYNC Final Result [facility] * (ABNORMAL) POCT , urine manually resulted (07/31/2023 3:04 PM EDT) Preg Test, Ur Positive Urine 07/31/2023 3:04 PM EDT Ricky Peraza DO POINT OF CARE TEST ENTER/EDIT OR DERABLES Final Result * US OB TRANSVAGINAL (07/31/2023 2:58 PM EDT) Anatomical Region Laterality Modality Other 07/31/2023 2:58 PM EDT Narrative 07/31/2023 3:01 [place] [address] Ultrasound Report Signed Patient: ADRY LEVY MR#: [id number] : 1995 Acct:[id number] Age/Sex: 28 / F ADM Date: 07/31/23 Loc: [facility]OMS Attending Dr: Ricky Peraza D.O. Ordering Physician: Ricky Peraza D.O. Date of Service: 07/31/23 Procedure(s): US OB transvaginal Accession Number(s): [id number] cc: Ricky Peraza D.O.; Physician,Non-Staff MTod [address] [address] Patient Name: ADRY LEVY MRN: [id number] date: 1995 Sex: F Assigned Patient Location: [facility] Current Patient Location: [facility] Accession/Order Number: [id number] Exam Date: 07/31/2023 14:01 Report Date: 07/31/2023 14:58 At the request of: RICKY PERAZA Procedure: US OB transvaginal EXAMINATION: US OB transvaginal HISTORY: MISSED MENSES COMPARISON: No relevant comparison available. FINDINGS: Transvaginal images Clark intrauterine gestation Gestational sac: 3.3 cm, 9 weeks CRL: 2.07 cm, 8 weeks 5 days Yolk sac: 4.2 mm Heart rate: 173 beats minute Cervix: Closed, 5.5 cm Uterus is normal, anteverted, anteflexed The ovaries are normal. Right corpus luteal cyst Clinical age: 8 weeks 3 days Clinical YE: 03/08/2024 Ultrasound age: 8 weeks 5 days Ultrasound YE: 02/29/2024 US/US OB transvaginal IMPRESSION: Viable clark intrauterine gestation measuring 8 weeks 5 days Electronically authenticated by: EULOGIO BARCLAY Date: 07/31/2023 14:58 Dictated By: Eulogio Barclay M.D. Signed By: 07/31/23 1502 DD/ 1458 TD/TT: Hangersmith: Procedure Note Radiology, Radiologist, MD - 07/31/2023 [place] [address] Ultrasound Report Signed Patient: ADRY LEVY R#: [id number] : 1995Acct:[id number] Age/Sex: 28 / FADM Date: 07/31/23 Loc: NOMS Attending Dr: Ricky Peraza D.O. Ordering Physician: Ricky Peraza D.O. Date of Service: 07/31/23 Procedure(s): US OB transvaginal Accession Number(s): [id number] cc: Ricky Peraza D.O.; Physician,Non-Staff Babak [place] [id number] Patient Name: ADRY LEVY MRN: [id number] date: 1995 Sex: F Assigned Patient Location: [facility] Current Patient Location: [facility] Accession/Order Number: [id number] Exam Date: 07/31/2023 14:01 Report Date: 07/31/2023 14:58 At the request of: RICKY PERAZA Procedure: US OB transvaginal EXAMINATION: US OB transvaginal HISTORY: MISSED MENSES COMPARISON: No relevant comparison available. FINDINGS: Transvaginal images Clark intrauterine gestation Gestational sac: 3.3 cm, 9 weeks CRL: 2.07 cm, 8 weeks 5 days Yolk sac: 4.2 mm Heart rate: 173 beats minute Cervix: Closed, 5.5 cm Uterus is normal, anteverted, anteflexed The ovaries are normal. Right corpus luteal cyst Clinical age: 8 weeks 3 days Clinical YE: 03/08/2024 Ultrasound age: 8 weeks 5 days Ultrasound YE: 02/29/2024 US/US OB transvaginal IMPRESSION: Viable clark intrauterine gestation measuring 8 weeks 5 days Electronically authenticated by: EULOGIO BARCLAY Date: 07/31/2023 14:58 Dictated By: Eulogio Barclay M.D. Signed By:07/31/23 150 DD/ 1458 TD/TT: Hangersmith: us Ricky Stu DO CLINISYNC IMAGING Final Result * TBH PREG QUANT HCG (07/05/2023 11:07 AM EDT) Only the most recent of2 resultswithin the time period is included. HCG QUANTITATIVE 1,725 mIU/mL TBH Comment: 5-50 0.2-1 WEEK 50-500 1-2 WEEKS 100-5,000 2-3 WEEKS 500-10,000 3-4 WEEKS 1,000-50,000 4-5 WEEKS 10,000-100,000 5-6 WEEKS 15,000-200,000 6-8 WEEKS 10,000-100,000 2-3 MONTHS 07/05/2023 11:0 7 AM EDT 07/05/2023 11:11 AM EDT Narrative CLINISYNC - 07/05/2023 12:25 PM EDT us Ricky Stu DO CLINISYNC Final Result CLINISYNC TB * MHPT VZ IMMUNITY (06/20/2023 9:01 AM EDT) MHPT VZ IMMUNITY 3.84 >1.09 MHPT Comment: Interpretation: IMMUNE Reference Range: <0.91 Not Immune 0.91-1.09 Equivocal >1.09 Immune 06/20/2023 9:01 AM EDT 06/20/2023 1:10 PM EDT Narrative CLINISYNC - 06/23/2023 11:41 AM EDT Original Ordering Provider: DU PHILIP Generic External Data Provider CLINISYNC F inal Result Performing Organization Address [facility] de Phone Number CLINISYNC PT * FREE T3 (03/12/2018) Pathologist [facility] FT3 3.37 2.00 - 4.40 [facility] ACY EXTERNAL LAB 03/12/2018 Janice Kennedy BODY ARTIST ECW LABS Final Result Performing Organization Address [facility] de Phone Number [facility] * IRON PROFILE (03/12/2018) FE 117 40 - 190 [facility] Comment:Reference range bennett 01/24/2017. Prior reference range F 37-145 ug/dL, M 59-158 ug/dL. TOT.IRON BIND.CAP. 321 250 - 450 [facility] UIBC 204 112 - 347 [facility] %FESAT 36 11 - 50 [facility] 03/12/2018 Janice Kennedy BODY ARTIST ECW LABS Final Result Performing Organization Address [facility] de Phone Number [facility] * US NECK HEAD SOFT TISSUE (03/12/2018) Anatomical Region Laterality Modality Radiographic Jolie ging 03/12/2018 Narrative 03/12/2018 12:00 AM EST PERFORMED AT [facility] LOCATION:[place] [address] Procedure Note CONVERSION, GENERIC - 07/24/2022 PERFORMED AT [facility] LOCATION:[place] [address] Janice Kennedy BODY ARTIST IMG XR PROCEDURES Final Result * (ABNORMAL) URINALYSIS, COMPLETE W/REFLEX TO CULTURE (03/12/2018) Pathologist [facility] 410 YELLOW YELLOW [facility] 411 CLOUDY(A) CLEAR [facility] SPECIFIC GRAVITY 1.018 1.001 - 1.035 [facility] 407 7.5 5.0 - 8.0 [facility] 404 NEGATIVE NEGATIVE [facility] 400 NEGATIVE NEGATIVE [facility] 402 NEGATIVE NEGATIVE [facility] HEMOGLOBIN,QU AL NEGATIVE NEGATIVE [facility] 405 NEGATIVE NEGATIVE [facility] NITRITE NEGATIVE NEGATIVE [facility] LEUKOCYTE ESTERASE NEGATIVE NEGATIVE [facility] 424 0-5 0 - 5 [facility] RBC/HPF CELLS 0-2 0 - 2 [facility] L EGACY EXTERNAL LAB 481 0-5 0 - 5 [facility] 439 NONE SEEN NONE SEEN [facility] 414 NONE SEEN NONE SEEN [facility] 03/12/2018 Janice Kennedy BODY ARTIST LAB BODY FLUIDS AND STOOLS ORD ERABLES Final Result [facility] * CBC auto differential (03/12/2018) Pathologist [facility] WBC 7.6 3.8 - 11.0 [facility] LEGA CY EXTERNAL LAB RED BLOOD COUNT 5.05 3.90 - 5.20 [facility] HGB 14.1 11.7 - 15.5 [facility] HEMATOCRIT 42.9 35.0 - 47.0 [facility] MCV 85 80 - 100 [facility] MEAN CORPUSCULAR HEMOGLOBIN 27.9 27.0 - 33.0 [facility] MEAN CORPUSCULAR HGB CONC 32.9 32.0 - 36.0 [facility] RDW-SD 40.4 37.0 - 50.0 [facility] RDW-CV 13.0 11.0 - 15.0 [facility] PLATELET 244 140 - 400 [facility] MPV 11.10 7.50 - 12.50 [facility] NEUT% 59.4 [facility] LYMPH % 27.0 [facility] MONO% 9.5 [facility] EOS% 2.3 [facility] BAS0 % 1.1 [facility] NEUT# 4.5 1.5 - 7.8 [facility] LYMPH # 2.0 0.9 - 3.9 [facility] MONO# 0.7 0.2 - 0.9 [facility] EOS# 0.17 0.02 - 0.50 [facility] BASO# 0.08 0.00 - 0.20 [facility] 03/12/2018 [facility] [place] [facility] BLOOD ORDERABLES Final Res ult Performing Organization Address City/[facility]/ZIP Co de Phone Number [facility] * TSH (03/12/2018) TSH W/OUT REFLEX 3.560 0.400 - 4.500 [facility] 03/12/2018 [facility] [place] [facility] LAB BLOOD ORDERABLES Final Res ult Performing Organization Address City/[facility]/ZIP Co de Phone Number [facility] * T4, free (03/12/2018) FREE T4 1.18 0.80 - 1.80 [facility] 03/12/2018 [facility] [place] [facility] LAB BLOOD ORDERABLES Final Res ult Performing Organization Address City/[facility]/ZIP Co de Phone Number [facility] * Lipid panel (03/12/2018) CHOLESTEROL 146 125 - 200 [facility] Comment: Low risk < 200mg/dL Borderline risk 201-239 mg/dl High risk > or equal to 240 TRIGLYCERIDE G.B. 53 30 - 150 NO [place] [facility] Comment: TRIG ATPIII CLASSIFICATIONS TRIG less than 150 mg/dl Normal TRIG 150-199 mg/dl Borderline High TRIG 200-500 mg/dl High TRIG greather than 500 mg/dl Very High CHOLESTEROL,HDL 58 >40 [facility] Comment: High Cardiovascular Risk HDL <40 mg/dL Low Cardiovascular Risk HDL > or equal to 60 mg/dl LDL CHOLESTEROL,CALCULAT ED 77 [facility] Comment: LDL ATP III CLASSIFICATION LDL less than 100 mg/dl Optimal LDL 100-129 mg/dl Near or above optimal LDL 130-159 Borderline high LDL 160-189 High LDL greater than 189 mg/dl Very High CHOL/HDL 3 [facility] VLDL 11 [facility] 03/12/2018 us Janice Kennedy BODY ARTIST LAB BLOOD ORDERABLES Final Res ult [facility] * (ABNORMAL) Comprehensive metabolic panel (03/12/2018) GLU 75 65 - 99 [facility] Comment: For FASTING Glucose --- ADA reference ranges: Normal 65-99 mg/dl Prediabetes 100-125 Diabetes >/= 126 BLOOD UREA NITROGEN 11 7 - 25 [facility] CREA 0.6(L) 0.7 - 1.4 [facility] EST GLOM FILT 149 >60 [facility] EGFR-NON AF [place]OV[place] 123 >60 [facility] BUN/CREA 18 6 - 22 [facility] TBIL 0.83 0.30 - 1.20 [facility] Comment:Reference range [employer] 01/24/2017. Prior reference range 0.2-1.2 mg/dL. AST 15 9 - 34 [facility] Comment:Reference range [employer] 01/24/2017. Prior range, F 12-34 U/L, M 12-50 U/L. SGPT/ALT 13 6 - 29 [facility] Comment:Reference range bennett ge 01/24/17. Prior reference range F 9-52 U/L, M 21- 72 U/L. ALKP 55 35 - 119 [facility] Comment:Female reference [place] 01/24/2017. Prior female reference range 35-104 U/L. TOTAL CALCIUM 9.7 8.6 - 10.2 [facility] NA (SODIUM) 139 135 - 146 [facility] POTASSIUM 4.6 3.5 - 5.5 [facility] CL 104 98 - 107 [facility] CO2 25 20 - 31 [facility] AGAP 15 8 - 16 [facility] TOTAL PROTEIN 7.3 6.1 - 8.1 [facility] ALBUMIN LEVEL 4.7 3.6 - 5.1 [facility] GLOB 2.6 1.9 - 3.7 [facility] A/G 1.8 1.0 - 2.5 [facility] 03/12/2018 Janice Kennedy NP LAB BLOOD ORDERABLES Final Res ult [facility] * CT abdomen pelvis w IV contrast (03/26/2017 12:00 PM EST) Anatomical Region Laterality Modality Body, Pelvis, Abdomen Computed T omography 03/26/2017 12:0 0 PM EST Narrative 03/26/2017 12:00 PM EST PERFORMED AT [facility] LOCATION:[id number] Procedure Note CONVERSION, GENERIC - 07/24/2022 PERFORMED AT [facility] LOCATION:[id number] us Janice Kennedy BODY ARTIST IMG CT PROCEDURES Final Result Visit Diagnoses Diagnosis Start Date Acne vulgaris Other acne 05/26/2019 Melanocytic nevus of trunk Benign neoplasm of skin of trunk, except scrotum 05/27/2023 Seborrheic keratosis 05/27/2023 Dermatofibroma of right lower extremity 05/27/2023 Missed menses 07/03/2023 Missed menses 07/31/2023 Thyroid disorder Unspecified disorder of thyroid 08/21/2023 First trimester ([facility]) state, incidental 09/01/2023 Well woman exam with routine gynecological exam Routine gynecological examination 09/30/2023 Second trimester ([facility]) state, incidental 09/30/2023 Exposure to STD 09/30/2023 Encounter for anatomic survey ([facility]) Encounter for anatomic survey 09/30/2023 Need for maternal serum alpha-protein (MSAFP) screening ([facility]) 09/30/2023 Screening, , for anatomic survey ([facility]) Encounter for anatomic survey 09/30/2023 Yeast infection 10/02/2023 21 weeks gestation of ([facility]) 10/30/2023 Diabetes mellitus screening Screening for diabetes mellitus 10/30/2023 Second trimester ([facility]) state, incidental 11/26/2023 28 weeks gestation of ([facility]) 12/17/2023 Third trimester ([facility]) state, incidental 12/17/2023 30 weeks gestation of ([facility]) 12/30/2023 Third trimester ([facility]) state, incidental 12/30/2023 Aortic stenosis of mother during ([facility]) 12/30/2023 Hypothyroid in , antepartum ([facility]) 12/30/2023 Vaginal discharge during in second trimester ([facility]) 12/30/2023 Encounter for screening for cervical length ([facility]) 12/30/2023 Third trimester ([facility]) state, incidental 01/14/2024 32 weeks gestation of ([facility]) 01/14/2024 Third trimester ([facility]) state, incidental 01/26/2024 34 weeks gestation of ([facility]) 01/26/2024 6 weeks follow-up ([facility]) 04/21/2024 Melanocytic nevus of trunk Benign neoplasm of skin of trunk, except scrotum 06/07/2024 Melanocytic nevus of face, other location 06/07/2024 Blue nevus of right upper arm 06/07/2024 Seborrheic keratosis 06/07/2024 Dermatofibroma of right lower extremity 06/07/2024 Dermatofibroma Benign neoplasm of skin, site unspecified 06/07/2024 Dermatofibroma of left lower extremity 06/07/2024 Encounter for visit ([facility]) 08/19/2024 Dyspareunia in female 08/19/2024 Well woman exam with routine gynecological exam Routine gynecological examination 10/05/2024 Recurrent UTI Urinary tract infection, site not specified 10/05/2024
--- OUTSIDE RECORDS SUMMARY | 2024-10-05 18:56 | XMS_ITS | Encounter Summary ---
Author Organization [facility] Address [address] [place] [address] Care Team Providers Care Traveling Passenger Agent Name Role Phone Unavailable Primary Care Provider Unavailabl e Encounter Details Date Type Department Care Team (Late st Contact Info) Description 02/05/2024 Clinisync Result Encounter [facility] External Department Unsolicited Ricky Peraza DO [address] [place] [address] Social History Tobacco Use Types Packs/Day Years [...] ANT Pearce OBSAMANTHA [address] [place] [address] Ricky Peraza DO [address] [place] [address] 06/07/2025 10:20 AM EDT Office Visit [facility] [address] [facility] [place] [address] Di [place], [place] [address] [place] [address] 10/10/2025 3:00 PM EDT Procedure Visit [facility] [place] [facility] [address] [place] [id number] Ricky Peraza DO [address] [facility] [address] Jaek Avery [place], [facility]11 documented as of this encounter Procedures Procedure Name Priority Date/Time Associated Diagnosis Comments US OB BPP W NON-STRESS 02/05/2024 6:09 AM EST documented in this encounter Results * US OB BPP W NON-STRESS (02/05/2024 6:09 AM EST) Anatomical Region Laterality Modality Other 02/05/2024 6:09 AM EST Narrative 02/05/2024 6:[place] [address] Ultrasound Report Signed Patient: LISA LEVY MR#: [id number] : 1995 Acct:[id number] Age/Sex: 29 / F ADM Date: 02/04/24 Loc: US Attending Dr: Ricky Peraza D.O. Ordering Physician: Ricky Peraza D.O. Date of Service: 02/04/24 Procedure(s): US OB BPP w non-stress Accession Number(s): [id number] cc: Ricky Peraza D.O.; Physician,Non-Staff M.New The [address] [address] Patient Name: LISA LEVY MRN: [id number] date: 1995 Sex: F Assigned Patient Location: US Current Patient Location: Accession/Order Number: [id number] Exam Date: 02/04/2024 10:30 Report Date: 02/05/2024 06:09 At the request of: RICKY PERAZA Procedure: US OB BPP w non-stress EXAMINATION: US OB BPP w non-stress HISTORY:Hypothyroidism COMPARISON: Ultrasound OB biophysical 01/26/2024 TECHNIQUE: Ultrasound biophysical profile was performed in the radiology department. BREATHING MOVEMENTS: 2 GROSS BODY MOVEMENTS: 2 TONE: 2 QUALITATIVE AMNIOTIC FLUID VOLUME: 2 PRESENTATION: BREECH HEART RATE: 134.33 bpm AMNIOTIC FLUID VOLUME: 16.47 cm GESTATIONAL AGE: 35 weeks 2 days US/US OB BPP w non-stress IMPRESSION: Total biophysical profile score: 8 Electronically authenticated by: FEDE EDWARDS Date: 02/05/2024 06:09 Dictated By: Fede Edwards M.D. Signed By: 02/05/24610 DD/ 8 TD/TT: Metal Drawer: Procedure Note Radiology, Radiologist, MD - 02/05/2024 [place] [address] Ultrasound Report Signed Patient: LISA LEVY R#: [id number] : 1995Acct:[id number] Age/Sex: 29 / FADM Date: 02/04/24 Loc: US Attending Dr: Ricky Peraza D.O. Ordering Physician: Ricky Peraza D.O. Date of Service: 02/04/24 Procedure(s): US OB BPP w non-stress Accession Number(s): [id number] cc: Ricky Peraza D.O.; Physician,Non-Staff M.DSara The [place] [id number] Patient Name: LISA LEVY MRN: [id number] date: 1995 Sex: F Assigned Patient Location: US Current Patient Location: Accession/Order Number: [id number] Exam Date: 02/04/2024 10:30 Report Date: 02/05/2024 06:09 At the request of: RICKY PERAZA Procedure: US OB BPP w non-stress EXAMINATION: US OB BPP w non-stress HISTORY:Hypothyroidism COMPARISON: Ultrasound OB biophysical 01/26/2024 TECHNIQUE: Ultrasound biophysical profile was performed in the radiology department. BREATHING MOVEMENTS: 2 GROSS BODY MOVEMENTS: 2 TONE: 2 QUALITATIVE AMNIOTIC FLUID VOLUME: 2 PRESENTATION: BREECH HEART RATE: 134.33 bpm AMNIOTIC FLUID VOLUME: 16.47 cm GESTATIONAL AGE: 35 weeks 2 days US/US OB BPP w non-stress IMPRESSION: Total biophysical profile score: 8 Electronically authenticated by: FEDE EDWARDS Date: 02/05/2024 06:09 Dictated By: Fede Edwards M.D. Signed By:02/05/2411 DD/ TD/TT: Metal Drawer: us Ricky Stu DO [facility] Final Result documented in this encounter Visit Diagnoses Not on filedocumented in this encounter
--- OUTSIDE RECORDS SUMMARY | 2024-10-05 18:56 | XMS_ITS | Encounter Summary ---
Author Organization [facility] Address [address] [facility] [place] [address] Care Team Providers Care Head Cashier Name Role Phone Unavailable Primary Care Provider Unavailabl e Encounter Details Date Type Department Care Team (Late Contact Info) Description 08/19/2024 Abstract [facility] [address] [place] [address] Sammy Peraza DO [facility] [place] [address] Social History Tobacco Use Types Packs/Day Years [...] Visit [facility] [address] [place] [address] Sammy Peraza DO [address] [place], [place] [id number] 06/07/2025 10:20 AM EDT Office Visit [facility] [address] [place] [address] Di Van, [place] [address] [facility] [address] [place] [address] 10/10/2025 3:00 PM EDT Procedure Visit [facility] [address] [facility] [place] [address] Sammy Peraza DO [address] [facility] [place] [address] documented as of this encounter Visit Diagnoses Not on filedocumented in this encounter
--- OUTSIDE RECORDS SUMMARY | 2024-10-05 18:56 | XMS_ITS | Clinical Summary ---
Author Organization [facility] Address [address] [facility], [address] [place] [address] Care Team Providers Care Hat And Cap Sewer Name Role Phone Janice Kennedy VERITO - HAND SPRING REPAIRER Primary Care Provider [phone] Allergies Active Allergy Reactions Criticality Noted Date Comments Amoxicillin 04/14/2012 Clarithromycin 10/07/2015 Clindamycin/Lincomycin Other (See Comments) 07/2014 Ulcerated esophagus Doxycycline 04/14/2012 Erythromycin 04/14/2012 Medications Vit-Fe Fumarate-FA ( PO) Take by mouth Active [place]-3 Fatty Acids (OMEGA-3 PO) Take by mouth Active Active Problems Problem Noted Date Diagnosed Date Bicuspid aortic valve 04/14/2012 Chest pain 04/14/2012 Palpitations 04/14/2012 Social History Tobacco Use Types Packs/Day Years Used Date Smoking Tobacco: Never Smokeless Tobacco: Never Tobacco Cessation:Counseling Given: Not Answered Alcohol Use Standard Drinks/Week Comments Never 0 (1 standard drink = 0.6 oz pur e alcohol) AUDIT-C Answer Date Recorded Q1: How often do you have a drink containing alcohol? Never 12/09/2023 Q2: How many drinks containi ng alcohol do you have on a typical day when you are drinking? Patient does not drink Q3: How often do you have si x or more drinks on one occasion? Never 12/09/2023 Comments Unknown Sex and Gender Information Value Date Recorded Sex Assigned at Not on file Legal Sex Female 2:49 PM EST Gender Identity Not on file Sexual Orientation Not on file Last Filed Vital Signs Vital Sign Reading Time Taken Comments Blood Pressure 101/76 12/09/2023 3:55 PM EDT Pulse 77 12/09/2023 10:00 AM EDT Temperature 36.8 C (98.2 F) 12/09/2023 10:00 AM EDT Respiratory Rate 16 12/09/2023 10:0 0 AM EDT Oxygen Saturation 99% 12/09/2023 3:55 PM EDT Inhaled Oxygen Concentration - - Weight 71.6 kg (157 lb 12.8 oz) 024 10:00 AM EDT Height 162.6 cm (5' 4 ) 07/12/2014 9:49 AM EDT Body Mass Index 27.09 07/12/2014 9:49 AM EDT Plan of Treatment Health Maintenance Due Date Last Done Comments Polio vaccine (4 of 4 - 4-dose series) 1998 1995, 1995, 1994 DTaP/Tdap/Td vaccine (5 - Tdap) 2005 03/13/1995, 1994, 1994, Additional history exists Depression Screen 2006 Varicella vaccine (1 of 2 - 13+ 2-dose series) 2007 HIV screen 2009 Hepatitis C screen 02/04/2012 Hepatitis B vaccine (1 of 3 - 19+ 3-dose series) 2013 Pap smear 2015 COVID-19 Vaccine ( season) 2023 Cervical cancer screen 02/04/2024 HPV (without or with Pap) 02/04/2024 Flu vaccine (#1) 10/08/2024 12/25/2022, 01/08/2016 Hib vaccine Completed 03/13/1995, 0603/1994, 1994, Additional history exists HPV vaccine Aged Out No longer eligi ble based on patient's age to complete this topic Hepatitis A vaccine Aged Out No longe r eligible based on patient's age to complete this topic Meningococcal (ACWY) vaccine Aged Out No longer eligible based on patient's age to complete this topic Meningococcal B vaccine Aged Out No l onger eligible based on patient's age to complete this topic Pneumococcal 0-49 years Vaccine Aged Out No longer eligible based on patient's age to complete this topic Insurance [id number] [id number] Care Teams Hat And Cap Sewer Relationship Specialty Start Date End Date Janice Kennedy APRN - NP PCP - General Nurse Practitioner 03/25/17
--- OUTSIDE RECORDS SUMMARY | 2024-10-05 18:56 | XMS_ITS | Encounter Summary ---
Author Organization [facility] Address [address] [facility] [place] [address] Care Team Providers Care Doctor'S Assistant Name Role Phone Unavailable Primary Care Provider Unavailabl e Encounter Details Date Type Department Care Team (Late Contact Info) Description 01/28/2024 Abstract [facility] [address] [place] [address] Sammy Peraza DO [facility] [place] [address] Social History Tobacco Use Types Packs/Day Years [...] Visit [facility] [address] [place] [address] Sammy Peraza DO [address] [place] [id number] 06/07/2025 10:20 AM EDT Office Visit [facility] [address] [place] [address] Di Van, [place] [address] [facility] [address] [place] [address] 10/10/2025 3:00 PM EDT Procedure Visit [facility] [address] [place] [address] Sammy Peraza DO [address] [facility] [place] [address] documented as of this encounter Visit Diagnoses Not on filedocumented in this encounter
--- OUTSIDE RECORDS SUMMARY | 2024-10-05 18:56 | XMS_ITS | Encounter Summary ---
Author Organization [facility] Address [address] [place] [address] Care Team Providers Care Batter Out Name Role Phone Unavailable Primary Care Provider Unavailabl e Encounter Details Date Type Department Care Team (Late st Contact Info) Description 01/27/2024 Clinisync Result Encounter [facility] External Department Unsolicited Ricky Peraza DO [address] [place] [address] Social History Tobacco Use Types Packs/Day Years [...] Visit ANT [place] OBSAMANTHA [address] [place] [address] Ricky Peraza DO [address] [place] [address] 06/07/2025 10:20 AM EDT Office Visit [facility] [address] [facility] [place] [address] Di [place], [place] [address] [place] [address] 10/10/2025 3:00 PM EDT Procedure Visit [facility] [place] [facility] [address] [facility] [phone] Ricky Peraza DO [address] [facility] [address] Jake [place]very [place], [facility]11 documented as of this encounter Procedures Procedure Name Priority Date/Time Associated Diagnosis Comments US OB BPP W NON-STRESS 01/27/2024 4:51 AM EST documented in this encounter Results * US OB BPP W NON-STRESS (01/27/2024 4:51 AM EST) Anatomical Region Laterality Modality Other 01/27/2024 4:51 AM EST Narrative 01/27/2024 4:54 [place] [address] Ultrasound Report Signed Patient: LISA LEVY MR#: [id number] : 1995 Acct:[id number] Age/Sex: 28 / F ADM Date: 01/26/24 Loc: US Attending Dr: Ricky Peraza D.O. Ordering Physician: Ricky Peraza D.O. Date of Service: 01/26/24 Procedure(s): US OB BPP w non-stress Accession Number(s): [id number] cc: Ricky Peraza D.O.; Physician,Non-Staff M.New The [address] [address] Patient Name: LISA LEVY MRN: [id number] date: 1995 Sex: F Assigned Patient Location: [facility] Current Patient Location: Accession/Order Number: [id number] Exam Date: 01/26/2024 10:43 Report Date: 01/27/2024 04:51 At the request of: RICKY PERAZA Procedure: US OB BPP w non-stress EXAMINATION: US OB BPP w non-stress, US OB cervical length HISTORY:Hypothyroid in COMPARISON: Ultrasound OB biophysical 01/19/2024 TECHNIQUE: Ultrasound biophysical profile was performed in the radiology department. BREATHING MOVEMENTS: 2 GROSS BODY MOVEMENTS: 2 TONE: 2 QUALITATIVE AMNIOTIC FLUID VOLUME: 2 PRESENTATION: Cephalic HEART RATE: 133 bpm AMNIOTIC FLUID VOLUME: 22.01 cm GESTATIONAL AGE: 34 weeks 0 days US/US OB BPP w non-stress IMPRESSION: 1. Total biophysical profile score: 8 2. Closed cervix 4.9 cm in length. Electronically authenticated by: FEDE EDWARDS Date: 01/27/2024 04:51 Dictated By: Fede Edwards M.D. Signed By: 01/27/24453 DD/ 0 TD/TT: Electrical Fitter: Procedure Note Radiology, Radiologist, MD - 01/27/2024 [place] [address] Ultrasound Report Signed Patient: LISA LEVY R#: [id number] : 1995Acct:[id number] Age/Sex: 28 FADM Date: 01/26/24 Loc: US Attending Dr: Ricky Peraza D.O. Ordering Physician: Ricky Peraza D.O. Date of Service: 01/26/24 Procedure(s): US OB BPP w non-stress Accession Number(s): [id number] cc: Ricky Peraza D.O.; Physician,Non-Staff MTod The [place] [id number] Patient Name: LISA LEVY MRN: [id number] date: 1995 Sex: F Assigned Patient Location: [facility] Current Patient Location: Accession/Order Number: [id number] Exam Date: 01/26/2024 10:43 Report Date: 01/27/2024 04:51 At the request of: RICKY PERAZA Procedure: US OB BPP w non-stress EXAMINATION: US OB BPP w non-stress, US OB cervical length HISTORY:Hypothyroid in COMPARISON: Ultrasound OB biophysical 01/19/2024 TECHNIQUE: Ultrasound biophysical profile was performed in the radiology department. BREATHING MOVEMENTS: 2 GROSS BODY MOVEMENTS: 2 TONE: 2 QUALITATIVE AMNIOTIC FLUID VOLUME: 2 PRESENTATION: Cephalic HEART RATE: 133 bpm AMNIOTIC FLUID VOLUME: 22.01 cm GESTATIONAL AGE: 34 weeks 0 days US/US OB BPP w non-stress IMPRESSION: 1. Total biophysical profile score: 8 2. Closed cervix 4.9 cm in length. Electronically authenticated by: FEDE EDWARDS Date: 01/27/2024 04:51 Dictated By: Fede Edwards M.D. Signed By:01/27/244 DD/ 045 TD/TT: Electrical Fitter: us Ricky Stu DO [facility] Final Result documented in this encounter Visit Diagnoses Not on filedocumented in this encounter
--- OUTSIDE RECORDS SUMMARY | 2024-10-05 18:56 | XMS_ITS | Clinical Summary ---
Author Organization [email or web address] tem Address [id number] [address] [place] [address] Care Team Providers Care Die Presser Name Role Phone Heather Will MD Primary Care Provider + Allergies Active Allergy Reactions Criticality Noted Date Comments Amoxicillin Rash Low 07/15/2017 Amoxicillin Rash Low 09/09/2023 Clarithromycin Rash Low 07/15/2017 Clarithromycin Rash Low 09/09/2023 Clindamycin 07/15/2017 ulcerated esophagus Clindamycin 09/09/2023 Doxycycline High 07/15/2017 ulercative esophagus Erythromycin 09/09/2023 Medications no115/iron/foli c acid ( 19 ORAL) Take by mouth. Active famotidine (PEPCID) 10 mg tablet Take 1 tablet (10 mg total) by mouth daily as needed for heartburn. Active acetaminophen (TYLENOL EXTRA STRENGTH) 500 mg tablet Take 2 tablets (1,000 mg total) by mouth every 8 (eight) hours as needed for pain. 30 tablet 03/14/2024 Active docusate sodium (COLACE) 100 mg capsule Take 1 capsule (100 mg total) by mouth in the morning and 1 capsule (100 mg total) before bedtime. 60 capsule 03/14/2024 Active ibuprofen (MOTRIN) 800 mg tablet Take 1 tablet (800 mg total) by mouth every 8 (eight) hours as needed (cramping). 30 tablet 03/14/2024 Active Active Problems Problem Noted Date Diagnosed Date Encounter for induction of labor 03/11/2024 care in third trimester 01/26/2024 Overview (02/18/2024): testing: weekly NST/DVP until delivery (see 11/[address] Crowley) Serial growth scans Transfer from [facility] [place] Initial and 28 week labs normal. Placenta anterior 02/13/24 GBS Neg S/p TDaP Maternal cardiovascular dise ase affecting in third trimester 01/26/2024 Overview (03/11/2024): For assisted 2nd stage of labor. Bicuspid [...] worse, patient will be a candidate for C- section Cardiology consult intrapartum. 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 Dizziness 06/29/2020 Bicuspid aortic valve 07/15/2017 Palpitations 07/15/2017 Resolved Problems Problem Noted Date Diagnosed Date Resolved Date Hypothyroidism affecting 01/26/2024 01/26/2024 Encounters Date Type Department Care Team Description 10/01/2024 1:00 PM EDT - 10/01/2024 11:59 PM EDT Hospital Encounter [facility] - Echo [address] [place] [address] Dilatation of thoracic aorta Discharge Disposition: Home 10/01/2024 Travel from Last 3 Months Immunizations Immunization Administration Dates Next Due DTP / HiB 03/13/1995, 5,1994,1994 HiB 1994,1994 Influenza (IM) Preservative Free 01/02/2015,12/08 Influenza, Injectable, quadr ivalent (PF) 12/25/2022,01/08/2016 MMR 02/06/1995 OPV 1994,1994,1994 Tdap 01/08/2024 Family History Medical History Relation Name Comments Seizures Brother 1 Clotting disorder Brother 2 Seizures Brother 2 Clotting disorder Brother 3 Cancer Father Clotting disorder Father Hypertension Maternal Grandfather Arrhythmia Mother afib on medcati on Heart defect Mother mitral valve pr olapse Breast cancer Paternal Aunt Hyperlipidemia Paternal Aunt Hypertension Paternal Aunt Hypertension Paternal Grandmother Asthma Neg Hx Diabetes Neg Hx Heart attack Neg Hx High Cholesterol Neg Hx Stroke Neg Hx Sudden Neg Hx Thyroid Issues Neg Hx Relation Name Status Comments Brother 1 Brother 2 Alive Brother 3 Alive Brother 4 Alive Father Alive Maternal Grandfather Mother Alive Paternal Aunt Paternal Grandmother Social History Tobacco Use Types Packs/Day Years Used Date Smoking Tobacco: Never Smokeless Tobacco: Never Tobacco Cessation:Counseling Given: Not Answered Alcohol Use Standard Drinks/Week Comments Not Currently [...] Sign Reading Time Taken Comments Blood Pressure 120/78 03/14/2024 2:10 PM EST Pulse 91 03/14/2024 2:10 PM EST Temperature 36.6 C (97.9 F) 03/14/2024 2:10 PM EST Respiratory Rate 16 03/14/2024 2:10 PM EST Oxygen Saturation 98% 03/12/2024 11:30 PM EST Inhaled Oxygen Concentration - - Weight 63 kg (139 lb) 10/01/2024 1:47 PM EDT Height 162.6 cm (5' 4 ) 10/01/2024 1:47 PM EDT Body Mass Index 23.86 10/01/2024 1:47 PM EDT Plan of Treatment Health Maintenance Due Date Last Done Comments Depression Screening 2006 Influenza Vaccine 11/08/2024 12/25/2022, , 01/02/2015, Additional history exists Tobacco Screening 03/13/2025 03/13/2024 Adult BMI Screening 10/01/2025 10/01/2024 Pap Smear 09/29/2026 09/30/2023 DTaP,Tdap and Td Vaccines (6 - Td or Tdap) 01/07/2034 01/08/2024, 03/13/1995, 1994, Additional history exists Medical Devices Not on file Procedures Procedure Name Priority Date/Time Associated Diagnosis Comments ECHO CONGENITAL LIMITED (PEDIATRIC) Routine 10/01/2024 1:48 PM EDT Dilatation of thoracic aorta from Last 3 Months Results * (ABNORMAL) Echo congenital limited (Pediatric) (10/01/2024 1:48 PM EDT) LVIDd 4.92 3.98 - 5.52 cm XCELERA [...] Doppler and congenital limited echocardiogram was performed. Chepe Peraza MD CV ECHO ORDERABLES Final Res ult from Last 3 Months Insurance [employer] Advance Directives * Full Code (Latest Code Status on File) Date Activated Date Inactivated Comments 03/11/2024 11:04 PM 03/14/2024 7:15 PM Care Teams Die Presser Relationship Specialty Start Date End Date Heather Will MD [address] [place] [phone] PCP - General Family Medicine 06/29/20
--- OUTSIDE RECORDS SUMMARY | 2024-10-05 18:56 | XMS_ITS | Encounter Summary ---
Author Organization [facility] tem Address [id number] [address] 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 Never True 10/20/2023 Within the past 12 months th e food we bought just didn't last and we didn't have money to get more. Never True 10/20/2023 Purpose - Life Answer Date Recorded Purpose [...] Procedure Name Priority Date/Time Associated Diagnosis Comments UNLISTED LAB TEST Routine 10/29/2023 Family history of Marfan syndrome 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 documented in this encounter Results * Unlisted Lab Test (10/29/2023) 10/29/2023 us Joel Grant MD LAB BLOOD ORDERABLES Final Re sult MANUALLY TRANSCRIBED RESULTS documented in this encounter Visit Diagnoses Diagnosis Family history of Marfan syndrome 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 documented in this encounter Care Teams Packaging Supervisor Relationship Specialty Start Date End Date Heather Will MD [address] [place] [phone] PCP - General Family Medicine 06/29/20 documented as of this encounter
--- OUTSIDE RECORDS SUMMARY | 2024-10-05 18:56 | XMS_ITS | Encounter Summary ---
Author Organization [facility] Address [address] [place] [address] Care Team Providers Care Bakery Clerk Name Role Phone Unavailable Primary Care Provider Unavailabl e Encounter Details Date Type Department Care Team (Late st Contact Info) Description 07/31/2023 Clinisync Result Encounter [facility] External Department Unsolicited Ricky Peraza, DO [address] [place], [place] [phone] Social History Tobacco Use Types Packs/Day Years Used Date Smoking Tobacco: Never Smokeless Tobacco: Never Comments Yes Sex and Gender Information Value Date Recorded Sex Assigned at Not on file Legal Sex Female 6:37 PM EDT Gender Identity Not on file Sexual Orientation Not on file documented as of this encounter Plan of Treatment Upcoming Encounters Date Type Department Care Team (Late st Contact Info) Description 10/25/2024 2:20 PM EDT Office Visit [facility] [address] [place] [phone] Ricky Peraza, DO [address] [place] [address] 06/07/2025 10:20 AM EDT Office Visit [facility] [address] [place] [address] Di Van PA [address] [place] [address] 10/10/2025 3:00 PM EDT Procedure Visit [facility] [address] [place] [address] Ricky Peraza DO [address] [facility] [address] [place], [facility] documented as of this encounter Procedures Procedure Name Priority Date/Time Associated Diagnosis Comments US OB TRANSVAGINAL 07/31/2023 2: 58 PM EDT documented in this encounter Results * US OB TRANSVAGINAL (07/31/2023 2:58 PM EDT) Anatomical Region Laterality Modality Other 07/31/2023 2:58 PM EDT Narrative 07/31/2023 3:01 [place] [address] Ultrasound Report Signed Patient: LISA LEVY MR#: [id number] : 1995 Acct:[id number] Age/Sex: 28 / F ADM Date: 07/31/23 Loc: [facility] Attending Dr: Ricky Peraza D.O. Ordering Physician: Ricky Peraza D.O. Date of Service: 07/31/23 Procedure(s): US OB transvaginal Accession Number(s): [id number] cc: Ricky Peraza D.O.; Physician,Non-Staff M.D. The [address] [address] Patient Name: LSIA LEVY MRN: [id number] date: 1995 Sex: F Assigned Patient Location: [facility] Current Patient Location: [facility] Accession/Order Number: [id number] Exam Date: 07/31/2023 14:01 Report Date: 07/31/2023 [...] By: Eulogio Barclay M.D. Signed By: 07/31/23 1500 DD/ 1458 TD/TT: Director Of Marketing Analytics: Procedure Note Radiology, Radiologist, - 07/31/2023 [place] [address] Ultrasound Report Signed Patient: LISA LEVY R#: [id number] : 1995Acct:[id number] Age/Sex: 28 FADM Date: 07/31/23 Loc: [facility] Attending Dr: Ricky Peraza D.O. Ordering Physician: Ricky Peraza D.O. Date of Service: 07/31/23 Procedure(s): US OB transvaginal Accession Number(s): [id number] cc: Ricky Peraza D.O.; Physician,Non-Staff Babak The [place] [address] Patient Name: LISA LEVY MRN: [id number] date: 1995 Sex: F Assigned Patient Location: [facility] Current Patient Location: [facility] Accession/Order Number: [id number] Exam Date: 07/31/2023 14:01 Report Date: 07/31/2023 [...] Dictated By: Eulogio Barclay M.D. Signed By:07/31/23 1501 DD/ 1458 TD/TT: Director Of Marketing Analytics: us Ricky Stu DO [facility] Final Result documented in this encounter Visit Diagnoses Not on filedocumented in this encounter
--- OUTSIDE RECORDS SUMMARY | 2024-10-05 18:56 | XMS_ITS | Encounter Summary ---
Author Organization [facility] Address [address] [place] [address] Care Team Providers Care Author Name Role Phone Unavailable Primary Care Provider Unavailabl e Encounter Details Date Type Department Care Team (Late st Contact Info) Description 02/11/2024 Clinisync Result Encounter [facility] External Department Unsolicited Ricky Peraza DO [address] [place] [address] Social History Tobacco Use Types Packs/Day Years [...] Visit [facility] [place] [facility] [address] [place] [phone] Ricky Peraza DO [address] [place] [address] 06/07/2025 10:20 AM EDT Office Visit [facility] [address] [place] [address] Di Van, PA [address] [place] [address] 10/10/2025 3:00 PM EDT Procedure Visit [facility] [place] [facility] [address] [facility] [place] [phone] Ricky Peraza DO [address] [facility] [place] [address] documented as of this encounter Procedures Procedure Name Priority Date/Time Associated Diagnosis Comments US OB BPP W NON-STRESS 02/11/2024 10:56 AM EST documented in this encounter Results * US OB BPP W NON-STRESS (02/11/2024 10:56 AM EST) Anatomical Region Laterality Modality Other 02/11/2024 10:5 6 AM EST Narrative 02/11/2024 10:58 [place] [address] Ultrasound Report Signed Patient: ADRY LEVY MR#: [id number] : 1995 Acct:[id number] Age/Sex: 29 / F ADM Date: 02/11/24 Loc: [place] [address]: Ricky Peraza D.O. Ordering Physician: Ricky Peraza D.O. Date of Service: 02/11/24 Procedure(s): US OB BPP w non-stress Accession Number(s): [id number] cc: Ricky Peraza D.O.; Physician,Non-Staff M.DSara The [address] [address] Patient Name: ADRY LEVY MRN: [id number] date: 1995 Sex: F Assigned Patient Location: [facility] Current Patient Location: US Accession/Order Number: [id number] Exam Date: 02/11/2024 10:00 Report Date: 02/11/2024 10:56 At the request of: RICKY PERAZA Procedure: US OB BPP w non-stress EXAMINATION: US OB BPP w non-stress HISTORY: aortic stenosis COMPARISON: No relevant comparison available. TECHNIQUE: Ultrasound biophysical profile was performed in the radiology department. non-reactive stress testing was performed by nursing staff in the birthing center. FINDINGS: BREATHING MOVEMENTS: 2 GROSS BODY MOVEMENTS: 2 TONE: 2 QUALITATIVE AMNIOTIC FLUID VOLUME: 2 PRESENTATION: CEPHALIC HEART RATE: 135 bpm AMNIOTIC FLUID VOLUME: 20.0 cm GESTATIONAL AGE: 36 weeks 2 days US/US OB BPP w non-stress IMPRESSION: Total biophysical profile score: 8 Electronically authenticated by: EULOGIO BARCLAY Date: 02/11/2024 10:56 Dictated By: Eulogio Barclay M.D. Signed By: 02/11/24 1058 DD/ 55 TD/TT: Clin Nurse: Procedure Note Radiology, Radiologist, MD - 02/11/2024 [place] [address] Ultrasound Report Signed Patient: ADRY LEVY HMR#: [id number] : 1995Acct:[id number] Age/Sex: 29 / FADM Date: 02/11/24 Loc: [facility] [address]: Ricky Peraza D.O. Ordering Physician: Ricky Peraza D.O. Date of Service: 02/11/24 Procedure(s): US OB BPP w non-stress Accession Number(s): [id number] cc: Ricky Peraza D.O.; Physician,Non-Staff Babak The [address] [address] Patient Name: ADRY LEVY MRN: [id number] date: 1995 Sex: F Assigned Patient Location: [facility] Current Patient Location: US Accession/Order Number: [id number] Exam Date: 02/11/2024 10:00 Report Date: 02/11/2024 10:56 At the request of: RICKY PERAZA Procedure: US OB BPP w non-stress EXAMINATION: US OB BPP w non-stress HISTORY: aortic stenosis COMPARISON: No relevant comparison available. TECHNIQUE: Ultrasound biophysical profile was performed in the radiology department. non-reactive stress testing was performed by nursingstaff in the birthing center. FINDINGS: BREATHING MOVEMENTS: 2 GROSS BODY MOVEMENTS: 2 TONE: 2 QUALITATIVE AMNIOTIC FLUID VOLUME: 2 PRESENTATION: CEPHALIC HEART RATE: 135 bpm AMNIOTIC FLUID VOLUME: 20.0 cm GESTATIONAL AGE: 36 weeks 2 days US/US OB BPP w non-stress IMPRESSION: Total biophysical profile score: 8 Electronically authenticated by: EULOGIO BARCLAY Date: 02/11/2024 10:56 Dictated By: Eulogio Barclay M.D. Signed By:02/11/24 1058 DD/ 1056 TD/TT: Clin Nurse: us Ricky Peraza DO [facility] Final Result documented in this encounter Visit Diagnoses Not on filedocumented in this encounter
--- OUTSIDE RECORDS SUMMARY | 2024-10-05 18:56 | XMS_ITS | Encounter Summary ---
Author Organization [facility] Address [address] [place] [address] Care Team Providers Care Health Social Work Professor Name Role Phone Unavailable Primary Care Provider Unavailabl e Encounter Details Date Type Department Care Team (Late st Contact Info) Description 01/19/2024 Clinisync Result Encounter [facility] External Department Unsolicited Ricky Peraza DO [address] [place] [address] Social History Tobacco Use Types Packs/Day Years [...] Visit [facility] [place] [facility] [address] [place] [phone] Ricky Peraza DO [address] [place] [address] 06/07/2025 10:20 AM EDT Office Visit [facility] [address] [facility] [place] [address] Di Van, PA [address] [place] [address] 10/10/2025 3:00 PM EDT Procedure Visit [facility] [place] [facility] [address] [facility] [place] [phone] Ricky Peraza DO [address] [facility] [address] [place], [facility] documented as of this encounter Procedures Procedure Name Priority Date/Time Associated Diagnosis Comments US OB BPP W NON-STRESS 01/19/2024 12:10 PM EST documented in this encounter Results * US OB BPP W NON-STRESS (01/19/2024 12:10 PM EST) Anatomical Region Laterality Modality Other 01/19/2024 12:1 0 PM EST Narrative 01/19/2024 1:24 [place] [address] Ultrasound Report Signed Patient: ADRY LEVY MR#: [id number] : 1995 Acct:[id number] Age/Sex: 28 / F ADM Date: 01/19/24 Loc: US Attending Dr: Ricky Peraza D.O. Ordering Physician: Ricky Peraza D.O. Date of Service: 01/19/24 Procedure(s): US OB BPP w non-stress Accession Number(s): [id number] cc: Ricky Peraza D.O.; Physician,Non-Staff M.New The [address] [address] Patient Name: ADRY LEVY MRN: [id number] date: 1995 Sex: F Assigned Patient Location: [facility] Current Patient Location: Accession/Order Number: [id number] Exam Date: 01/19/2024 10:30 Report Date: 01/19/2024 12:10 At the request of: RICKY PERAZA Procedure: US OB BPP w non-stress EXAMINATION: US OB BPP w non-stress HISTORY: AORTIC STENOSIS OF MOTHER O99.419,I35.0 COMPARISON: No relevant comparison available. TECHNIQUE: Ultrasound biophysical profile was performed in the radiology department. non-reactive stress testing was performed by nursing staff in the birthing center. FINDINGS: BREATHING MOVEMENTS: 2 GROSS BODY MOVEMENTS: 2 TONE: 2 QUALITATIVE AMNIOTIC FLUID VOLUME: 2 PRESENTATION: CEPHALIC HEART RATE: 145.16 bpm AMNIOTIC FLUID VOLUME: 19.1 cm GESTATIONAL AGE: 33 weeks 0 days US/US OB BPP w non-stress IMPRESSION: Total biophysical profile score: 8 Electronically authenticated by: EULOGIO BARCLAY Date: 01/19/2024 12:10 Dictated By: Eulogio Barclay M.D. Signed By: 01/19/24 1324 DD/ 1210 TD/TT: Director Electronics: Procedure Note Radiology, Radiologist, MD - 01/19/2024 [place] [address] Ultrasound Report Signed Patient: ADRY LEVY R#: [id number] : 1995Acct:[id number] Age/Sex: 28 / FADM Date: 01/19/24 Loc: US Attending Dr: Ricky Peraza D.O. Ordering Physician: Ricky Peraza D.O. Date of Service: 01/19/24 Procedure(s): US OB BPP w non-stress Accession Number(s): [id number] cc: Ricky Peraza D.O.; Physician,Non-Staff MTod The [place] [id number] Patient Name: ADRY LEVY MRN: [id number] date: 1995 Sex: F Assigned Patient Location: [facility] Current Patient Location: Accession/Order Number: [id number] Exam Date: 01/19/2024 10:30 Report Date: 01/19/2024 12:10 At the request of: RICKY PERAZA Procedure: US OB BPP w non-stress EXAMINATION: US OB BPP w non-stress HISTORY: AORTIC STENOSIS OF MOTHER O99.419,I35.0 COMPARISON: No relevant comparison available. TECHNIQUE: Ultrasound biophysical profile was performed in the radiology department. non-reactive stress testing was performed by nursingstaff in the birthing center. FINDINGS: BREATHING MOVEMENTS: 2 GROSS BODY MOVEMENTS: 2 TONE: 2 QUALITATIVE AMNIOTIC FLUID VOLUME: 2 PRESENTATION: CEPHALIC HEART RATE: 145.16 bpm AMNIOTIC FLUID VOLUME: 19.1 cm GESTATIONAL AGE: 33 weeks 0 days US/US OB BPP w non-stress IMPRESSION: Total biophysical profile score: 8 Electronically authenticated by: EULOGIO BARCLAY Date: 01/19/2024 12:10 Dictated By: Eulogio Barclay M.D. Signed By:01/19/24 1324 DD/ 1210 TD/TT: Director Electronics: us Ricky Stu DO [facility] Final Result documented in this encounter Visit Diagnoses Not on filedocumented in this encounter
--- OUTSIDE RECORDS SUMMARY | 2024-10-05 18:56 | XMS_ITS | Encounter Summary ---
Author Organization [employer] tem Address [id number] [address] [place] [address] Care Team Providers Care Hostel Parent Name Role Phone Heather Will MD Primary Care Provider + Encounter Details Date Type Department Care Team (Latest Contact Info) Description 10/01/2024 Travel Social History Tobacco Use Types Packs/Day Years [...] on filedocumented in this encounter Care Teams Hostel Parent Relationship Specialty Start Date End Date Heather Will MD [address] [place] [address] PCP - General Family Medicine 06/29/20 documented as of this encounter
--- OUTSIDE RECORDS SUMMARY | 2024-10-05 18:56 | XMS_ITS | Encounter Summary ---
Author Organization [facility] Address [address] [facility] [place] [address] Care Team Providers Care Seed Service Advisor Name Role Phone Unavailable Primary Care Provider Unavailabl e Encounter Details Date Type Department Care Team (Late Contact Info) Description 06/10/2024 Abstract [facility] [place] [facility] [address] [place] [address] Sammy Peraza DO [facility] [place] [address] Social History Tobacco Use Types Packs/Day Years [...] Visit [facility] [place] [facility] [address] [place] [address] Sammy Peraza DO [address] [place], [place] [phone] 06/07/2025 10:20 AM EDT Office Visit [facility] [address] [place] [address] Di Van, PA [address] [facility] [address] [place] [address] 10/10/2025 3:00 PM EDT Procedure Visit [facility] [place] [facility]ACK[facility] [address] [facility] [place] [address] Sammy Peraza DO [address] [facility] [place] [address] documented as of this encounter Visit Diagnoses Not on filedocumented in this encounter
--- OUTSIDE RECORDS SUMMARY | 2024-10-05 18:56 | XMS_ITS | Encounter Summary ---
Author Organization [facility] Address [address] [facility] [place] [address] Care Team Providers Care Health Information Technologist Name Role Phone Unavailable Primary Care Provider Unavailabl e Encounter Details Date Type Department Care Team (Late Contact Info) Description 06/10/2024 Abstract [facility] [place] [facility] [address] [place] [address] aSmmy Peraza DO [facility] [place] [address] Social History Tobacco Use Types Packs/Day Years [...] Visit [facility] [place] [facility] [address] [place] [address] Sammy Peraza DO [address] [place], [place] [phone] 06/07/2025 10:20 AM EDT Office Visit [facility] [address] [place] [address] Di Van, PA [address] [facility] [address] [place] [address] 10/10/2025 3:00 PM EDT Procedure Visit [facility] [place] JACKGYN [address] [place] [address] Sammy Peraza DO [address] [facility] [place] [address] documented as of this encounter Visit Diagnoses Not on filedocumented in this encounter
--- OUTSIDE RECORDS SUMMARY | 2024-10-05 18:56 | XMS_ITS | Encounter Summary ---
Author Organization [facility] tem Address [id number] [address] [place] [address] Care Team Providers Care Maintenance Department Manager Name Role Phone Heather Will MD Primary Care Provider + Encounter Details Date Type Department Care Team (Late st Contact Info) Description 01/13/2024 Orders Only Maternal- Medicine at [facility] [address] [place] [phone] Tatianna Bardales MD [address] [facility] [address] [place] [address] Social History Tobacco Use Types Packs/Day Years [...] on filedocumented in this encounter Care Teams Maintenance Department Manager Relationship Specialty Start Date End Date Heather Will MD [address] [place] [address] PCP - General Family Medicine 06/29/20 documented as of this encounter
--- OUTSIDE RECORDS SUMMARY | 2024-10-05 18:56 | XMS_ITS | Encounter Summary ---
Author Organization [facility] Address [address] [facility] [place] [address] Care Team Providers Care Dairy Scientist Name Role Phone Unavailable Primary Care Provider Unavailabl e Encounter Details Date Type Department Care Team (Late Contact Info) Description 10/05/2024 Bamboo flowsheet [facility] [place] CAR[facility] [address] [place] [address] Sammy Peraza DO [address] [place] [address] Dr [place], [facility] Social History Tobacco Use Types Packs/Day Years [...] EDT Office Visit [facility] [place] [facility] [address] [facility] [place] [address] Sammy Peraza DO [address] [place], [place] [address] 06/07/2025 10:20 AM EDT Office Visit [facility] [address] [place] [address] Di Van, PA [address] [place] [address] 10/10/2025 3:00 PM EDT Procedure Visit [facility] [place] CARMEN [address] [facility] [place] [address] Sammy Peraza DO [address] [facility] [place] [address] documented as of this encounter Visit Diagnoses Not on filedocumented in this encounter
--- OUTSIDE RECORDS SUMMARY | 2024-10-05 18:56 | XMS_ITS | Encounter Summary ---
Author Organization [facility] Address [address] [facility] [place] [address] Care Team Providers Care Fiberglass Grinder Name Role Phone Unavailable Primary Care Provider Unavailabl e Encounter Details Date Type Department Care Team (Late Contact Info) Description 01/15/2024 Abstract [facility] [place] CARMEN [address] [place] [address] Sammy Peraza DO [facility] [place] [address] Social History Tobacco Use Types Packs/Day [place] [address] Sammy Peraza DO [address] [place] [id number] 06/07/2025 10:20 AM EDT Office Visit [facility] [address] [place] [address] Di Van, PA [address] [facility] 350 [place] [address] 10/10/2025 3:00 PM EDT Procedure Visit [facility] [place] JACKGYN [address] [facility] [place] [address] Sammy Peraza DO [address] [facility] [place] [address] documented as of this encounter Visit Diagnoses Not on filedocumented in this encounter
--- OUTSIDE RECORDS SUMMARY | 2024-10-05 18:56 | XMS_ITS | Clinical Summary ---
Author Organization [facility] Address [address] [place] [address] Care Team Providers Care Aerospace Manager Name Role Phone Heather Will MD Primary Care Provider Chepe Peraza MD Unavailable [phone] Kortney Bear DO Unavailable Allergies Active Allergy Reactions Criticality Noted Date Comments Amoxicillin Rash,Other Low 04/14/2012 As a child Clarithromycin Rash,Unknown Low 10/07/2015 Ok to take azithromycin Ok to take azithromycin Clindamycin Other Low 03/16/2017 Able to take IV- just had throat ulceration when swallowed pill Other Reaction(s): ulcer esophagus ulcerated esophagus Doxycycline Other High 04/14/2012 Ulcerative esophagus Other Reaction(s): ulcer esophagus ulercative esophagus ulercative esophagus Ulcerative esophagus Other Reaction(s): ulcer esophagus Erythromycin Other 04/14/2012 Lincomycin Other,Unknown Low 07/12/2014 Ulcerated esophagus Ulcerated esophagus ulcerated esophagus Able to take IV- just had throat ulceration when swallowed pill Other Reaction(s): ulcer esophagus Spironolactone Dizziness 05/27/2023 Medications no115/iron/folic acid ( 19 ORAL) Take by mouth. 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 Bicuspid aortic valve 04/14/2012 Palpitations 04/14/2012 Comments Yes Social History Tobacco Use Types Packs/Day Years Used Date Smoking Tobacco: Never Assessed [place] Safety & Environment Answer Date Rec orded Fear of Current or Ex-Partner Not on file Emotionally Abused Not on file 05/12/2023 Physically Abused Not on file 05/12/2023 Sexually Abused Not on file 05/12/2023 Physically or Sexually Abused Not on file Comments Yes Sex and Gender Information Value Date Recorded Sex Assigned at Female 10/04/2024 6:47 PM EDT Legal Sex Female 12:01 PM EST Gender Identity Female 10/04/2024 6:47 PM EDT Sexual Orientation Don't know 10/04/2024 6: 47 PM EDT Last Filed Vital Signs Vital Sign Reading Time Taken Comments Blood Pressure 109/71 06/15/2024 11:12 AM EDT Pulse 73 06/15/2024 11:12 AM EDT Temperature - - Respiratory Rate - - Oxygen Saturation 98% 06/15/2024 11:12 AM EDT Inhaled Oxygen Concentration - - Weight 67.1 kg (148 lb) 06/15/2024 11:12 AM EDT Height 164.1 cm (5' 4.61 ) 06/15/2024 11:12 AM E DT Body Mass Index 24.93 06/15/2024 11:12 AM EDT Plan of Treatment Upcoming Encounters Date Type Department Care Team (Late st Contact Info) Description 06/16/2025 11:30 AM EDT Office Visit [facility] [place] [address] [place] [address] Chepe Peraza MD [address] [place] [address] Health Maintenance Due Date Last Done Comments IPV Vaccines (4 of 4 - 4-dose series) 1998 1994, 1994, 1994 Depression Screening 2006 Varicella Vaccines (1 of 2 - 13+ 2-dose series) 2007 Pneumococcal Vaccine: Pediatrics (0 to 5 Years) and At-Risk Patients (6 to 64 Years) (1 of 2 - PCV) 2013 COVID-19 Vaccine (1 - season) 2023 HPV/Cotest 02/04/2024 Influenza Vaccine (#1) 2024 , 01/08/2016, 01/02/2015, Additional history exists Cervical Cancer Screening 09/29/2026 Pap Smear 09/29/2026 09/30/2023 Adult Tetanus 01/07/2034 01/08/2024 Zoster Vaccines (1 of 2) 02/04/2044 HIB Vaccines Completed 03/13/1995, 03/1994, 1994, Additional history exists HPV Vaccines Aged Out No longer eligi ble based on patient's age to complete this topic Meningococcal B Vaccine Aged Out No l onger eligible based on patient's age to complete this topic Meningococcal Vaccine Aged Out No mauricio suzan eligible based on patient's age to complete this topic Rotavirus Vaccines Aged Out No longer eligible based on patient's age to complete this topic Insurance [employer] Care Teams Aerospace Manager Relationship Specialty Start Date End Date Heather Will MD [address] [place] [address] PCP - General Family Medicine 05/12/23 Chepe Peraza MD [address] [place] [phone] Referring Physician Pediatric Cardiology 10/07/23 Kortney Bear DO [address] [facility] [address] [address] Obstetrics and Gynecology 02/13/24
--- OUTSIDE RECORDS SUMMARY | 2024-10-05 18:57 | XMS_ITS | Encounter Summary ---
Author Organization [facility] Address [address] [place] [address] Care Team Providers Care Field Technical Specialist Name Role Phone Unavailable Primary Care Provider Unavailabl e Encounter Details Date Type Department Care Team (Late st Contact Info) Description 02/23/2024 Clinisync Result Encounter [facility] External Department Unsolicited Ricky Peraza DO [address] [place] [address] Social History Tobacco Use Types Packs/Day Years [...] Visit ANT [place] OBSAMANTHA [address] [place] [address] Ricky Peraza DO [address] [place] [address] 06/07/2025 10:20 AM EDT Office Visit [facility] [address] [place] [address] Di Van, PA [address] [place] [address] 10/10/2025 3:00 PM EDT Procedure Visit [facility] [place] [facility] [address] [facility] [place] [address] Ricky Peraza DO [address] [facility] [address] Jake Avery [place], [facility]11 documented as of this encounter Procedures Procedure Name Priority Date/Time Associated Diagnosis Comments US OB BPP W NON-STRESS 02/23/2024 1:20 PM EST documented in this encounter Results * US OB BPP W NON-STRESS (02/23/2024 1:20 PM EST) Anatomical Region Laterality Modality Other 02/23/2024 1:20 PM EST Narrative 02/23/2024 1:22 [place] [address] Ultrasound Report Signed Patient: ADRY LEVY MR#: [id number] : 1995 Acct:[id number] Age/Sex: 29 / F ADM Date: 02/23/24 Loc: [facility] 250-[address]: Ricky Peraza D.O. Ordering Physician: Ricky Peraza D.O. Date of Service: 02/23/24 Procedure(s): US OB BPP w non-stress Accession Number(s): [id number] cc: Ricky Peraza D.O.; Physician,Non-Staff M.DSara The [address] [address] Patient Name: ADRY LEVY MRN: [id number] date: 1995 Sex: F Assigned Patient Location: [facility] Current Patient Location: [facility] Accession/Order Number: [id number] Exam Date: 02/23/2024 10:50 Report Date: 02/23/2024 13:20 At the request of: RICKY PERAZA Procedure: US OB BPP w non-stress EXAMINATION: US OB BPP w non-stress HISTORY: Aortic stenosis of mother O99.419 COMPARISON: No relevant comparison available. TECHNIQUE: Ultrasound biophysical profile was performed in the radiology department. non-reactive stress testing was performed by nursing staff in the birthing center. FINDINGS: BREATHING MOVEMENTS: 2 GROSS BODY MOVEMENTS: 2 TONE: 2 QUALITATIVE AMNIOTIC FLUID VOLUME: 2 PRESENTATION: CEPHALIC HEART RATE: 128.57 bpm AMNIOTIC FLUID VOLUME: 17.0cm GESTATIONAL AGE: 38w0d US/US OB BPP w non-stress IMPRESSION: Total biophysical profile score: 8 *Reference: [employer]UM Practice Guideline for the performance of Obstetric Ultrasound Examinations, December 08, 2006. Electronically authenticated by: EULOGIO BARCLAY Date: 02/23/2024 13:20 Dictated By: Eulogio Barclay M.D. Signed By: 02/23/24 1322 DD/ 1320 TD/TT: Advertisement Distributor: Procedure Note Radiology, Radiologist, MD - 02/23/2024 [place] [address] Ultrasound Report Signed Patient: ADRY LEVY R#: [id number] : 1995Acct:[id number] Age/Sex: 29 / FADM Date: 02/23/24 Loc: [facility] 250-[address]: Ricky Peraza D.O. Ordering Physician: Ricky Peraza D.O. Date of Service: 02/23/24 Procedure(s): US OB BPP w non-stress Accession Number(s): [id number] cc: Ricky Peraza D.O.; Physician,Non-Staff MTod The [address] [address] Patient Name: ADRY LEVY MRN: [id number] date: 1995 Sex: F Assigned Patient Location: [facility] Current Patient Location: [facility] Accession/Order Number: [id number] Exam Date: 02/23/2024 10:50 Report Date: 02/23/2024 13:20 At the request of: RICKY PERAZA Procedure: US OB BPP w non-stress EXAMINATION: US OB BPP w non-stress HISTORY: Aortic stenosis of mother O99.419 COMPARISON: No relevant comparison available. TECHNIQUE: Ultrasound biophysical profile was performed in the radiology department. non-reactive stress testing was performed by nursingstaff in the birthing center. FINDINGS: BREATHING MOVEMENTS: 2 GROSS BODY MOVEMENTS: 2 TONE: 2 QUALITATIVE AMNIOTIC FLUID VOLUME: 2 PRESENTATION: CEPHALIC HEART RATE: 128.57 bpm AMNIOTIC FLUID VOLUME: 17.0cm GESTATIONAL AGE: 38w0d US/US OB BPP w non-stress IMPRESSION: Total biophysical profile score: 8 *Reference: [employer]UM Practice Guideline for the performance of Obstetric Ultrasound Examinations, December 08, 2006. Electronically authenticated by: EULOGIO BARCLAY Date: 02/23/2024 13:20 Dictated By: Eulogio Barclay M.D. Signed By:02/23/24 1322 DD/ 1320 TD/TT: Advertisement Distributor: us Ricky Peraza DO [facility] Final Result documented in this encounter Visit Diagnoses Not on filedocumented in this encounter
--- OUTSIDE RECORDS SUMMARY | 2024-10-05 18:57 | XMS_ITS | Encounter Summary ---
Author Organization [facility] Address [address] [facility] [place] [address] Care Team Providers Care Clinic Md Associate Name Role Phone Unavailable Primary Care Provider Unavailabl e Encounter Details Date Type Department Care Team (Late Contact Info) Description 01/01/2024 Abstract [facility] [place] CAR[facility] [address] [place] [address] Sammy Peraza DO [facility] [place] [address] Social History Tobacco Use Types Packs/Day [place] [address] Sammy Peraza DO [address] [place], [place] [address] 06/07/2025 10:20 AM EDT Office Visit [facility] [address] [place] [address] Di Van, PA [address] [facility] [address] [place] [address] 10/10/2025 3:00 PM EDT Procedure Visit [facility] [place] JACKGYN [address] [facility] [place] [place] [address] Sammy Peraza DO [address] [facility] [place] [address] documented as of this encounter Visit Diagnoses Not on filedocumented in this encounter
--- OUTSIDE RECORDS SUMMARY | 2024-10-05 18:57 | XMS_ITS | Encounter Summary ---
Author Organization [facility] Address [address] [facility] [place] [address] Care Team Providers Care Transfer And Pumphouse Operator Name Role Phone Unavailable Primary Care Provider Unavailabl e Encounter Details Date Type Department Care Team (Late Contact Info) Description 03/16/2024 Abstract [facility] [place] CARMEN [address] [place] [address] Sammy Peraza DO [facility] [place] [address] Social History Tobacco Use Types Packs/Day [place] [...] [place] [address] Sammy Peraza DO [address] [place], [place] [address] 06/07/2025 10:20 AM EDT Office Visit [facility] [address] [place] [address] Di Van, PA [address] [facility] [address] [place] [address] 10/10/2025 3:00 PM EDT Procedure Visit [facility] [place] JACKGYN [address] [facility] [address] Sammy Peraza DO [address] [facility] [place] [address] documented as of this encounter Visit Diagnoses Not on filedocumented in this encounter
--- OUTSIDE RECORDS SUMMARY | 2024-10-05 18:57 | XMS_ITS | Encounter Summary ---
Author Organization [facility] Address [address] [place] [address] Care Team Providers Care Ticket Taker Ferryboat Name Role Phone Unavailable Primary Care Provider Unavailabl e Encounter Details Date Type Department Care Team (Late st Contact Info) Description 12/30/2023 Clinisync Result Encounter [facility] External Department Unsolicited Ricky Peraza DO [address] [place] [address] Social History Tobacco Use Types Packs/Day Years [...] Visit ANT [place] OBSAMANTHA [address] [place] [address] Ricky Peraza DO [address] [place] [address] 06/07/2025 10:20 AM EDT Office Visit [facility] [address] [place] [address] Di Van, PA [address] [place] [address] 10/10/2025 3:00 PM EDT Procedure Visit [facility] [place] [facility] [address] [facility] [place] [address] Ricky Peraza DO [address] [facility] [place] [address] documented as of this encounter Procedures Procedure Name Priority Date/Time Associated Diagnosis Comments US OB CERVICAL LENGTH 12/30/2023 1:07 PM EDT documented in this encounter Results * US OB CERVICAL LENGTH (12/30/2023 1:07 PM EDT) Anatomical Region Laterality Modality Other 12/30/2023 1:07 PM EDT Narrative 12/30/2023 1:10 [place] [address] Ultrasound Report Signed Patient: ADRY LEVY MR#: [id number] : 1995 Acct:[id number] Age/Sex: 28 / F ADM Date: 12/30/23 Loc: [facility] Attending Dr: Ricky Peraza D.O. Ordering Physician: Ricky Peraza D.O. Date of Service: 12/30/23 Procedure(s): US OB cervical length Accession Number(s): [id number] cc: Ricky Peraza D.O.; Physician,Non-Staff M.DSara [address] [id number] Patient Name: ADRY LEVY MRN: [id number] date: 1995 Sex: F Assigned Patient [facility] Current Patient [facility]: [facility] Accession/Order Number: [id number] Exam Date: 12/30/2023 11:57 Report Date: 12/30/2023 13:07 At the request of: RICKY PERAZA Procedure: US OB cervical length EXAMINATION: US OB amniotic fluid vol, US OB cervical length HISTORY: VAGINAL DISCHARGE COMPARISON: No relevant comparison available. FINDINGS: position: Cephalic presentation, longitudinal lie Amniotic fluid: 18.7 cm Largest fluid pocket: 5.8 cm Heart rate: 133 beats minute Cervix: 4.2 cm, closed Clinical age: 30 weeks 1 day Clinical YE: 03/08/2024 US/US OB cervical length IMPRESSION: Normal amniotic fluid index Closed cervix measuring 4.2 cm in length Electronically authenticated by: EULOGIO BARCLAY Date: 12/30/2023 13:07 Dictated By: Eulogio Barclay M.D. Signed By: 12/30/23 1310 DD/ 1307 TD/TT: Clothespin Drier Operator: Procedure Note Radiology, Radiologist, MD - 12/30/2023 [place] [address] Ultrasound Report Signed Patient: ADRY LEVY R#: [id number] : 1995Acct:[id number] Age/Sex: 28 / FADM Date: 12/30/23 Loc: [facility] Attending Dr: Ricky Perzaa D.O. Ordering Physician: Ricky Peraza D.O. Date of Service: 12/30/23 Procedure(s): US OB cervical length Accession Number(s): [id number] cc: Ricky Peraza D.O.; Physician,Non-Staff MTod The [place] [id number] Patient Name: ADRY LEVY MRN: [id number] date: 1995 Sex: F Assigned Patient Location: [facility] Current Patient Location: [facility] Accession/Order Number: [id number] Exam Date: 12/30/2023 11:57 Report Date: 12/30/2023 13:07 At the request of: RICKY PERAZA Procedure: US OB cervical length EXAMINATION: US OB amniotic fluid vol, US OB cervical length HISTORY: VAGINAL DISCHARGE COMPARISON: No relevant comparison available. FINDINGS: position: Cephalic presentation, longitudinal lie Amniotic fluid: 18.7 cm Largest fluid pocket: 5.8 cm Heart rate: 133 beats minute Cervix: 4.2 cm, closed Clinical age: 30 weeks 1 day Clinical YE: 03/08/2024 US/US OB cervical length IMPRESSION: Normal amniotic fluid index Closed cervix measuring 4.2 cm in length Electronically authenticated by: EULOGIO BARCLAY Date: 12/30/2023 13:07 Dictated By: Euloigo Barclay M.D. Signed By:12/30/23 1310 DD/ 1307 TD/TT: Clothespin Drier Operator: us Ricky Abrahamo DO [facility] Final Result documented in this encounter Visit Diagnoses Not on filedocumented in this encounter
--- OUTSIDE RECORDS SUMMARY | 2024-10-05 18:57 | XMS_ITS | Encounter Summary ---
Author Organization [facility] Address [address] [place] [address] Care Team Providers Care Esthetician Permanent Makeup Artist Name Role Phone Unavailable Primary Care Provider Unavailabl e Encounter Details Date Type Department Care Team (Late st Contact Info) Description 03/04/2024 Clinisync Result Encounter [facility] External Department Unsolicited Ricky Peraza DO [address] [place] [address] Social History Tobacco Use Types Packs/Day Years [...] ANT [place] OBSAMANTHA [address] [place] [address] Ricky Peraza DO [address] [place] [address] 06/07/2025 10:20 AM EDT Office Visit [facility] [address] [facility] [address] Di Van, PA [address] [place] [address] 10/10/2025 3:00 PM EDT Procedure Visit [facility] [place] [facility] [address] [facility] [place] [address] Ricky Peraza DO [address] [facility] [place] [address] documented as of this encounter Procedures Procedure Name Priority Date/Time Associated Diagnosis Comments US OB BPP W NON-STRESS 03/04/2024 11:22 PM EST documented in this encounter Results * US OB BPP W NON-STRESS (03/04/2024 11:22 PM EST) Anatomical Region Laterality Modality Other 03/04/2024 11:2 2 PM EST Narrative 03/04/2024 11:24 [place] [address] Ultrasound Report Signed Patient: ADRY LEVY MR#: [id number] : 1995 Acct:[id number] Age/Sex: 29 / F ADM Date: 03/04/24 [facility]: [facility] [place] Dr: Ricky Peraza D.O. Ordering Physician: Ricky Peraza D.O. Date of Service: 03/04/24 Procedure(s): US OB BPP w non-stress Accession Number(s): [id number] cc: Ricky Peraza D.O.; Physician,Non-Staff M.New The [address] [address] Patient Name: ADRY LEVY MRN: [id number] date: 1995 Sex: F Assigned Patient Location: [facility] Current Patient Location: Accession/Order Number: [id number] Exam Date: 03/04/2024 10:02 Report Date: 03/04/2024 [...] M.D. Signed By: 03/04/242323 DD/ 21 TD/TT: Crown Buffer: Procedure Note Radiology, Radiologist, MD - 03/04/2024 [place] [address] Ultrasound Report Signed Patient: ADRY LEVY R#: [id number] : 1995Acct:[id number] Age/Sex: 29 / FADM Date: 03/04/24 [place] [facility] [place] Dr: Ricky Peraza D.O. Ordering Physician: Ricky Peraza D.O. Date of Service: 03/04/24 Procedure(s): US OB BPP w non-stress Accession Number(s): [id number] cc: Ricky Peraza D.O.; Physician,Non-Staff MTod The [place] [address] Patient Name: ADRY LEVY MRN: [id number] date: 1995 Sex: F Assigned Patient Location: [facility] Current Patient Location: Accession/Order Number: [id number] Exam Date: 03/04/2024 10:02 Report Date: 03/04/2024 [...] Edwards M.D. Signed By:03/04/242323 DD/ 21 TD/TT: Crown Buffer: us Ricky Peraza DO [facility] Final Result documented in this encounter Visit Diagnoses Not on filedocumented in this encounter
--- OUTSIDE RECORDS SUMMARY | 2024-10-05 18:57 | XMS_ITS | Encounter Summary ---
Author Organization [facility] Address [address] [place] [address] Care Team Providers Care Web Administrator Name Role Phone Unavailable Primary Care Provider Unavailabl e Encounter Details Date Type Department Care Team (Late st Contact Info) Description 02/18/2024 Clinisync Result Encounter [facility] External Department Unsolicited Ricky Peraza DO [address] [place] [address] Social History Tobacco Use Types Packs/Day Years [...] Description 10/25/2024 2:20 PM EDT Office Visit [facility] [place] OBSAM[facility]A [address] [place] [phone] Ricky Peraza DO [address] [place] [address] 06/07/2025 10:20 AM EDT Office Visit [facility] [address] [place] [address] Di Van, PA [address] [place] [address] 10/10/2025 3:00 PM EDT Procedure Visit [facility] [place] [facility] [address] [facility] [place] [phone] Ricky Peraza DO [address] [facility] [address] Jake Avery [place], [facility] documented as of this encounter Procedures Procedure Name Priority Date/Time Associated Diagnosis Comments US OB BPP W NON-STRESS 02/18/2024 11:28 AM EST documented in this encounter Results * US OB BPP W NON-STRESS (02/18/2024 11:28 AM EST) Anatomical Region Laterality Modality Other 02/18/2024 11:2 8 AM EST Narrative 02/18/2024 11:30 [place] [address] Ultrasound Report Signed Patient: ADRY LEVY MR#: [id number] : 1995 Acct:[id number] Age/Sex: 29 / F ADM Date: 02/18/24 Loc: [facility] 250-[address]: Ricky Peraza D.O. Ordering Physician: Ricky Peraza D.O. Date of Service: 02/18/24 Procedure(s): US OB BPP w non-stress Accession Number(s): [id number] cc: Ricky Peraza D.O.; Physician,Non-Staff M.New The [address] [address] Patient Name: ADRY LEVY MRN: [id number] date: 1995 Sex: F Assigned Patient Location: [facility] Current Patient Location: [facility] Accession/Order Number: [id number] Exam Date: 02/18/2024 10:09 Report Date: 02/18/2024 11:28 At the request of: RICKY PERAZA Procedure: [...] FLUID VOLUME: 2 PRESENTATION: CEPHALIC HEART RATE: 137.06 bpm AMNIOTIC FLUID VOLUME: 18.7 cm GESTATIONAL AGE: 37 weeks 2 days US/US OB BPP w non-stress IMPRESSION: Total biophysical profile score: 8 Electronically authenticated by: EULOGIO BARCLAY Date: 02/18/2024 11:28 Dictated By: Eulogio Barclay M.D. Signed By: 02/18/24 1130 DD/ 1128 TD/TT: Foam Fabricator: Procedure Note Radiology, Radiologist, MD - 02/18/2024 [place] [address] Ultrasound Report Signed Patient: ADRY LEVY R#: [id number] : 1995Acct:[id number] Age/Sex: 29 / FADM Date: 02/18/24 Loc: [facility] 250-[address]: Ricky Peraza D.O. Ordering Physician: Ricky Peraza D.O. Date of Service: 02/18/24 Procedure(s): US OB BPP w non-stress Accession Number(s): [id number] cc: Ricky Peraza D.O.; Physician,Non-Staff [place] [address] Patient Name: ADRY LEVY MRN: [id number] date: 1995 Sex: F Assigned Patient Location: [facility] Current Patient Location: [facility] Accession/Order Number: [id number] Exam Date: 02/18/2024 10:09 Report Date: 02/18/2024 11:28 At the request of: RICKY PERAZA Procedure: [...] FLUID VOLUME: 2 PRESENTATION: CEPHALIC HEART RATE: 137.06 bpm AMNIOTIC FLUID VOLUME: 18.7 cm GESTATIONAL AGE: 37 weeks 2 days US/US OB BPP w non-stress IMPRESSION: Total biophysical profile score: 8 Electronically authenticated by: EULOGIO BARCLAY Date: 02/18/2024 11:28 Dictated By: Eulogio Barclay M.D. Signed By:02/18/24 1130 DD/ 1128 TD/TT: Foam Fabricator: us Ricky Peraza DO [facility] Final Result documented in this encounter Visit Diagnoses Not on filedocumented in this encounter
--- OUTSIDE RECORDS SUMMARY | 2024-10-05 18:57 | XMS_ITS | Encounter Summary ---
Author Organization [employer] Address [id number] [place] [address] Care Team Providers Care Regional Construction Manager Name Role Phone Heather Will MD Primary Care Provider + Encounter Details Date Type Department Care Team (Late st Contact Info) Description 05/24/2022 Telephone [facility] [address] [place] [address] Chepe Peraza MD [address] [place] [address] Social History Tobacco Use Types Packs/Day Years [...] got money to buy more. Never True 05/21/2022 Within the past 12 months th e food we bought just didn't last and we didn't have money to get more. Never True 05/21/2022 Purpose - Life Answer Date Recorded Purpose and direction in life Unknown Comments Unknown Sex and Gender Information Value Date Recorded Sex Assigned at Not on file Legal Sex Female 4:30 PM EDT Gender Identity Not on file Sexual Orientation Not on file COVID-19 Exposure Response Date Recorded In the last month, have you been in contact with someone who was confirmed or suspected to have Coronavirus / COVID-19? No / Unsure 05/21/2022 9:11 AM EDT documented as of this encounter Miscellaneous Notes * Telephone Encounter - George Alfaro - 05/24/2022 12:35 PM EDT Patient called regarding MR she is to have at [facility]. They need the referrals to be faxed to them. I wanted to confirm that the 3 referrals that are in her chart are what is needed before I fax them. Please advise. * Telephone Encounter - Chepe Peraza MD - 05/24/2022 12:35 PM EDT yes * Telephone Encounter - George Alfaro - 05/24/2022 12:35 PM EDT Completed. * Telephone Encounter - Chepe Peraza MD - 05/24/2022 12:35 PM EDT Discussed results with patient and sent algorithm documented in this encounter Plan of Treatment Not on file documented as of this encounter Visit Diagnoses Not on filedocumented in this encounter Care Teams Regional Construction Manager Relationship Specialty Start Date End Date Heather Will MD [address] [place] [address] PCP - General Family Medicine 06/29/20 documented as of this encounter
--- OUTSIDE RECORDS SUMMARY | 2024-10-05 18:57 | XMS_ITS | Encounter Summary ---
Author Organization [facility] Address [address] [facility] [place] [address] Care Team Providers Care Pillowcase Sewer Name Role Phone Unavailable Primary Care Provider Unavailabl e Encounter Details Date Type Department Care Team (Late Contact Info) Description 11/27/2023 Abstract [facility] [place] [facility] [address] [place] [address] Sammy Peraza DO [facility] [place] [address] Social History Tobacco Use Types Packs/Day Years [...] Visit [facility] [place] [facility] [address] [place] [address] Sammy Peraza DO [address] [place] [phone] 06/07/2025 10:20 AM EDT Office Visit [facility] [address] [place] [address] Di Van, PA [address] [facility] [address] [place] [address] 10/10/2025 3:00 PM EDT Procedure Visit [facility] [place] JACKGYN [address] [facility] [place] [address] Sammy Peraza DO [address] [facility] [place] [address] documented as of this encounter Visit Diagnoses Not on filedocumented in this encounter
--- OUTSIDE RECORDS SUMMARY | 2024-10-05 18:57 | XMS_ITS | Encounter Summary ---
Author Organization [facility] Address [address] [facility] [place] [address] Care Team Providers Care Electro Mechanical Technician Name Role Phone Unavailable Primary Care Provider Unavailabl e Encounter Details Date Type Department Care Team (Late Contact Info) Description 11/20/2023 Abstract [facility] [place] [facility] [address] [facility] [place] [address] Brittani Smith LPN [address] [place] [phone] Social History Tobacco Use Types Packs/Day Years [...] EDT Office Visit [facility] [place] [facility] [address] [facility] [place] [address] Sammy Peraza DO [address] [facility] [address] [place] [phone] 06/07/2025 10:20 AM EDT Office Visit [facility] [address] [place] [address] Di Van, [place] [address] [place] [address] 10/10/2025 3:00 PM EDT Procedure Visit [facility] [place] JACKGY[facility] [address] [facility] [place] [address] Sammy Peraza DO [address] [facility] [place] [address] documented as of this encounter Visit Diagnoses Not on filedocumented in this encounter
--- OUTSIDE RECORDS SUMMARY | 2024-10-05 18:57 | XMS_ITS | Encounter Summary ---
Author Organization [facility] Address [address] [place] [address] Care Team Providers Care Node Js Developer Name Role Phone Unavailable Primary Care Provider Unavailabl e Encounter Details Date Type Department Care Team (Late st Contact Info) Description 12/30/2023 Clinisync Result Encounter [facility] External Department Unsolicited Ricky Peraza DO [address] [place] [address] Social History Tobacco Use Types Packs/Day Years [...] Visit [facility] [place] OBSAMANTHA [address] [place] [phone] Ricky Peraza DO [address] [place] [address] 06/07/2025 10:20 AM EDT Office Visit [facility] [address] [facility] [place] [address] Di Van, PA [address] [place] [address] 10/10/2025 3:00 PM EDT Procedure Visit [facility] [address] [facility] [place] [phone] Ricky Peraza DO [address] [facility] [place] [address] documented as of this encounter Procedures Procedure Name Priority Date/Time Associated Diagnosis Comments US AMNIOTIC FLUID VOLUME 12/30/2023 1:07 PM EDT documented in this encounter Results * US AMNIOTIC FLUID VOLUME (12/30/2023 1:07 PM EDT) Anatomical Region Laterality Modality Radiographic Jolie ging 12/30/2023 1:07 PM EDT Narrative 12/30/2023 1:10 PM EDT [place] [id number] Ultrasound Report Signed Patient: ADRY LEVY MR#: [id number] : 1995 Acct:[id number] Age/Sex: 28 / F ADM Date: 12/30/23 Loc: [facility] Attending Dr: Ricky Peraza D.O. Ordering Physician: Ricky Peraza D.O. Date of Service: 12/30/23 Procedure(s): US OB amniotic fluid vol Accession Number(s): [id number] cc: Ricky Peraza D.O.; Physician,Non-Staff M.DSara The [address] [id number] Patient Name: ADRY LEVY MRN: [id number] date: 1995 Sex: F Assigned [facility] Current [facility] Accession/Order Number: [id number] Exam Date: 12/30/2023 11:57 Report Date: 12/30/2023 [...] Clinical age: 30 weeks 1 day Clinical EY: 03/08/2024 US/US OB amniotic fluid vol IMPRESSION: Normal amniotic fluid index Closed cervix measuring 4.2 cm in length Electronically authenticated by: EULOGIO BARCLAY Date: 12/30/2023 13:07 Dictated By: Eulogio Barclay M.D. Signed By: 12/30/23 1310 DD/ 1307 TD/TT: Drop Pit Worker: Procedure Note Radiology, Radiologist, MD - 12/30/2023 [place] [address] Ultrasound Report Signed Patient: ADRY LEVY R#: [id number] : 1995Acct:[id number] Age/Sex: 28 / FADM Date: 12/30/23 Loc: [facility] Attending Dr: Ricky Peraza D.O. Ordering Physician: Ricky Peraza D.O. Date of Service: 12/30/23 Procedure(s): US OB amniotic fluid vol Accession Number(s): [id number] cc: Ricky Peraza D.O.; Physician,Non-Staff MTod The [place] [address] Patient Name: ADRY LEVY MRN: [id number] date: 1995 Sex: F Assigned Patient Location: [facility] Current Patient Location: [facility] Accession/Order Number: [id number] Exam Date: 12/30/2023 11:57 Report Date: 12/30/2023 [...] M.D. Signed By:12/30/23 1310 DD/ 1307 TD/TT: Drop Pit Worker: us Ricky Peraza DO IMG XR PROCEDURES Final Result documented in this encounter Visit Diagnoses Not on filedocumented in this encounter
--- OUTSIDE RECORDS SUMMARY | 2024-10-05 18:57 | XMS_ITS | Encounter Summary ---
Author Organization [facility] Address [address] [facility] [place] [address] Care Team Providers Care Iron Cutter Name Role Phone Unavailable Primary Care Provider Unavailabl e Encounter Details Date Type Department Care Team (Late Contact Info) Description 11/20/2023 Abstract [facility] [place] [facility] [address] [facility] [place] [address] Brittani Smith LPN [address] [place] [phone] Social History Tobacco Use Types Packs/Day Years [...] EDT Office Visit [facility] [place] [facility] [address] [facility] [place] [address] Sammy Peraza DO [address] [facility] [address] [place] [phone] 06/07/2025 10:20 AM EDT Office Visit [facility] [address] [place] [address] Di Van, [place] [address] [place] [address] 10/10/2025 3:00 PM EDT Procedure Visit [facility] [place] JACKGY[facility] [address] [facility] [place] [address] Sammy Peraza DO [address] [facility] [place] [address] documented as of this encounter Visit Diagnoses Not on filedocumented in this encounter
--- OUTSIDE RECORDS SUMMARY | 2024-10-05 18:57 | XMS_ITS | Encounter Summary ---
Author Organization [facility] Address [id number] [place] [address] Care Team Providers Care Software Development Test Engineer Name Role Phone Heather Will MD Primary Care Provider + Encounter Details Date Type Department Care Team (Late st Contact Info) Description 10/28/2023 Orders Only Maternal- Medicine at [facility] [address] [place] [address] Yuliya Cleveland, RN Echogenic intracardiac focus of fetus on ultrasound; Choroid plexus cyst of fetus affecting care of mother, antepartum, single or unspecified fetus Social History Tobacco Use Types Packs/Day Years [...] Associated Diagnosis Comments UNLISTED LAB TEST Routine 10/20/2023 Echogenic intracardiac focus of fetus on ultrasound Choroid plexus cyst of fetus affecting care of mother, antepartum, single or unspecified fetus documented in this encounter Results * Unlisted Lab Test (10/20/2023) 10/20/2023 us Joel Grant MD LAB BLOOD ORDERABLES Final Re sult [facility] documented in this encounter Visit Diagnoses Diagnosis Echogenic intracardiac focus of fetus on ultrasound Choroid plexus cyst of fetus affecting care of mother, antepartum, single or unspecified fetus documented in this encounter Care Teams Software Development Test Engineer Relationship Specialty Start Date End Date Heather Will MD [address] [place] [address] PCP - General Family Medicine 06/29/20 documented as of this encounter
[2024-10-08 20:08] LABS: Age Gdln ACOG Testing Note (.); IGP, Aptima HPV, rfx 16/18,45 Note (.)
== END 2024-10-05 18:52 | disposition home or self-care (01) ==
LOC: LAB 18:51
PROVIDERS: Visit Provider Obstetrics & Gynecology
DX: Z01.419 Encounter for gynecological examination (general) (routine) without abnormal findings (principal)
CPT/HCPCS: 87624; 88175